=== PATIENT | male | born 1980 | race Caucasian/White ===

== ENCOUNTER 2017-08-24 04:37 | Inpatient (IN) | payer OTHER ==
[2017-08-24] VITALS (70 sets, daily range): BP systolic 107–174; BP diastolic 80–135; PULSE 57–90; RESP 12–25; TEMP 94.1; Ht 182.9 cm; Wt 125.0 kg
[~2017-08-24] VITALS: Ht 182.9 cm; Wt 125.0 kg
--- NOTE | 2017-08-24 04:45 | ERD ---
ER Documentation Chief Complaint Chief Complaint Cardiac arrest HPI The patient is a 36-year-old male, presenting to the ER because of acute cardiac arrest. The history was initially obtained from the parts cleaner, later confirmed with the girlfriend. According to the girlfriend, he has had a cold for the last 2 days, trouble sleeping for the last couple days. She found him having a seizure on the bed at approximately 3:50 AM. She called 911 at 4 AM. The EMS arrived at the scene at 4:06 AM. He was found to have PEA, intubated with Sb airway, treated with CPR and epinephrine 1 mg IV 3. He had ROSC at 4 :20 AM and arrived to the ER at 4:35 AM. He does not smoke nor drink, does not use illicit drug Past medical history: Thyroid disease Past surgical history: None ROS All systems reviewed and are negative except as per history of present illness. Medications Home Meds Reported Medications Pseudoephedrine Hcl (Sudafed 12 Hour) 120 Mg Tablet.sa, 120 MG PO 08/24/17 Allergies Allergies: Coded Allergies: No Known Allergy (Unverified , 08/24/17) Physical Exam Vitals Vital Signs Date Time Temp Pulse Resp B/P Pulse Ox O2 Delivery O2 Flow Rate FiO2 08/24/17 05:35 50 08/24/17 04:50 98.8 105 20 175/121 100 BIPAP Mechanical Ventilator 08/24/17 04:40 92 20 99 100 08/24/17 04:40 98.8 123 13 226/153 99 Physical Exam Const: Obtunded. He is appearing to have a seizure Head: Atraumatic. Eyes: Normal Conjunctiva.No nystagmus ENT: Normal External Ears, Nose and Mouth. Neck: Full range of motion. No meningismus. Resp: Clear to auscultation Anterior and lateral Cardio: Regular Tachycardic Abd: Soft, distended, normal bowel sounds, non tender. Skin: No petechiae or rashes. Back: No midline or flank tenderness. Ext: No cyanosis, or edema. Neur: Unable to perform due to his condition Psych: Unable to perform due to his condition Result Diagram: 08/24/17 0445 08/24/17 0445 Results 24 hrs Laboratory Tests Test 08/24/17 04:45 08/24/17 05:31 White Blood Count 11.710^3/ul Red Blood Count 7.3210^6/ul Hemoglobin 19.8g/dl Hematocrit 70.1% Mean Corpuscular Volume 95.8fl Mean Corpuscular Hemoglobin 27.0pg Mean Corpuscular Hemoglobin Concent 28.2g/dl Red Cell Distribution Width 20.8% Platelet Count 53175^3/UL Mean Platelet Volume 9.3fl Neutrophils % 61.1% Lymphocytes % 25.2% Monocytes % 7.8% Eosinophils % 0.8% Basophils % 1.0% Nucleated Red Blood Cells % 8.1/100WBC Neutrophils # 7.210^3/ul Lymphocytes # 3.010^3/ul Monocytes # 0.910^3/ul Eosinophils # 0.110^3/ul Basophils # 0.110^3/ul Nucleated Red Blood Cells # 1.010^3/ul Prothrombin Time 14.5Sec Prothrombin Time Ratio 1.1 INR International Normalized Ratio 1.13 Activated Partial Thromboplast Time 32.1Sec Sodium Level 141mmol/L Potassium Level 3.2mmol/L Chloride Level 92mmol/L Carbon Dioxide Level 28mmol/L Anion Gap 24 Blood Urea Nitrogen 11mg/dl Creatinine 1.15mg/dl Glucose Level 269mg/dl Lactic Acid Level 8.3mmol/L Calcium Level 7.9mg/dl Total Bilirubin 1.0mg/dl Direct Bilirubin 0.00mg/dl Indirect Bilirubin 1.0mg/dl Aspartate Amino Transf (AST/SGOT) 82IU/L Alanine Aminotransferase (ALT/SGPT) 82IU/L Alkaline Phosphatase 51IU/L Troponin I Pending Total Protein 7.0g/dl Albumin 4.0g/dl Globulin 3.00g/dl Albumin/Globulin Ratio 1.33 Thyroid Stimulating Hormone (TSH) Pending Salicylates Level < 1.0mg/dl Acetaminophen Level < 10.0ug/ml Ethyl Alcohol Level < 10.0mg/dl Blood Gas Specimen Source Blood arterial Arterial Blood Date Drawn 08/24/2017 5:30:03 AM Arterial Blood pH (Temp corrected) 7.327 Arterial Blood pCO2 (Temp correct) 55.9mmhg Arterial Blood pO2 (Temp corrected) 296.7mmHG Arterial Blood HCO3 28.6mmol/L Arterial Blood Base Excess 0.8mmol/L Arterial Blood Oxygen Saturation 99.5mmHG Kar Test N/A Arterial Blood Gas Puncture Site Right Brachial Arterial Blood Carboxyhemoglobin 0.3% Arterial Blood Methemoglobin 0.8% Blood Gas A-a O2 Differential 360.4mmHg Oxyhemoglobin Percent 98.4% Total Hemoglobin 20.5g/dl Blood Gas Temperature 37.0C Blood Gas Respiration Rate 20.0 Blood Gas Actual Respiration Rate 20 Blood Gas Modality VENT - AC FiO2 100.0% Blood Gas Tidal Volume 600.0mL Blood Gas Low PEEP Setting 5.0cmH2O Blood Gas Notified Whom MA Blood Gas Notified Time 08/24/2017 5:42:31 AM Current Medications Medications (Trade) Dose Ordered Sig/Candelaria Route PRN Reason Start Time Stop Time Status Last Admin Dose Admin Propofol (Diprivan) 100 ml @ 0 mls/hr TITRATE ONCE IV 08/24/17 05:00 08/24/17 05:01 DC 08/24/17 05:52 Lorazepam 2 mg 2 mg STK-MED ONCE .ROUTE 08/24/17 04:58 08/24/17 04:59 DC Levetiracetam (Keppra 500 Mg/ 100ml (Pmx)) 100 ml @ 400 mls/hr ONCE ONCE IVPB 08/24/17 05:30 08/24/17 05:44 DC 08/24/17 05:59 Lorazepam 2 mg 2 mg ONCE ONCE IV 08/24/17 05:30 08/24/17 05:31 DC 08/24/17 05:45 Vancomycin HCl 250 ml @ 125 mls/hr ONCE IVPB 08/24/17 06:00 08/24/17 07:59 Piperacillin Sod/ Tazobactam Sod 50 ml @ 0 mls/hr ONCE ONCE IV 08/24/17 06:00 08/24/17 06:01 DC Potassium Chloride 250 ml @ 62.5 mls/hr ONCE ONCE IVPB 08/24/17 06:00 08/24/17 09:59 UNV Sodium Chloride (NS) 4,030 ml @ 2,015 mls/hr BOLUS X1 ONCE IV 08/24/17 06:00 08/24/17 07:59 UNV Procedures/MDM EKG: Read by emergency physician Rate/Rhythm: Sinus tachycardia 109 beats/min QRS, ST, T-waves: No ST elevation, RAD, RVH, inferolateral ST depression Impression: Abnormal EKG [place] [id number] Radiology Main Line: [phone] DIAGNOSTIC IMAGING REPORT Patient: JABARI GUIDRY : 1980 Age: 36 Sex: M MR #: [id number] DOS: 08/24/175 Ordering MD: CORTEZ DELGADO MD Location: E/R Room/Bed: PROCEDURE: XR Chest. CLINICAL INDICATION: Possible Sepsis TECHNIQUE: Single portable view of the chest was obtained the COMPARISON: None FINDINGS: An endotracheal tube terminates 3.5 cm above the neville. Nasogastric tube extends below the level hemidiaphragm. The cardiomediastinal silhouette is enlarged. Diffuse bilateral perihilar and lower lobe parenchymal opacities are present representing pulmonary edema and pneumonia. No evidence of consolidation. IMPRESSION: 1. Diffuse bilateral perihilar lower lobe parenchymal opacities representing pulmonary edema and/or pneumonia. 2. Moderate cardiomegaly. 3. Endotracheal and nasogastric tubes in satisfactory position. RPTAT: HRSR Physician Ezra Date Time Electronically viewed and signed by Physician Ezra on 08/24/2017 05 :43 RR/ CC: CORTEZ DELGADO MD [place] [id number] Radiology Main Line: [phone] DIAGNOSTIC IMAGING REPORT Patient: JABARI GUIDRY : 1980 Age: 36 Sex: M MR #: [id number] DOS: 08/24/17444 Ordering MD: CORTEZ DELGADO MD Location: E/R Room/Bed: PROCEDURE: CT Brain without contrast. CLINICAL INDICATION: Sepsis. TECHNIQUE: A CT of the brain was performed on a [employer] 64-slice CT scanner utilizing axial imaging from the skull base through the vertex without IV contrast. Multiplanar reformatted images were made. Images were reviewed on a PACS workstation. The CTDIvol is 44.52 mGy and the DLP is 810.25 mGycm. One or more of the following dose reduction techniques were utilized: 1.) Automated exposure control 2.) Adjustment of the mA +/- kV according to patient's size 3.) Use of iterative reconstruction technique. COMPARISON: None FINDINGS: There is no intracranial hemorrhage, mass effect, or midline shift. No extra- axial fluid collection is seen. The ventricles and sulci are normal in size and configuration. The density of the brain is normal, and the alcala white matter differentiation appears well-preserved. Moderate opacification of the bilateral, left greater than right ethmoid sinuses. Minimal mucosal thickening of the bilateral maxillary sinuses. Opacified nasal cavity secondary to the presence of nasogastric tube. Endotracheal tube noted. IMPRESSION: 1. No acute intracranial pathology. 2. Extensive opacification of the nasal cavity likely secondary to the presence of a nasogastric tube. 3. Moderate opacification of the bilateral ethmoid sinus. Minimal mucosal thickening of the bilateral maximal sinuses. RPTAT: HRSR Physician Ezra Date Time Electronically viewed and signed by Physician Ezra on 08/24/2017 05 :27 RR/ CC: CORTEZ DELGADO MD [place] [id number] Radiology Main Line: [phone] DIAGNOSTIC IMAGING REPORT Patient: JABARI GUIDRY : 1980 Age: 36 Sex: M MR #: [id number] DOS: 08/24/17 0445 Ordering MD: CORTEZ DELGADO MD Location: E/R Room/Bed: PROCEDURE: CT Cervical Spine without contrast. CLINICAL INDICATION: Possible sepsis. TECHNIQUE: A CT of the cervical spine was performed on a [employer] 64- slice CT scanner utilizing thin section axial images from the skull base through the thoracic inlet. Sagittal and coronal reformatted images were made. The CTDIvol is 22.35 mGy and the DLP is 601.86 mGycm. One or more of the following dose reduction techniques were used: - Automated exposure control. - Adjustment of the mA and/or kV according to patient size. - Use of iterative reconstruction technique. COMPARISON: No prior studies are available for comparison. FINDINGS: There is straightening of the normal cervical lordosis with considerations including patient positioning, musculoskeletal spasm, degenerative change, and pain. No acute fracture or subluxation. Endotracheal nasogastric tube are present. C2-3: The disc is normal in height. No significant disk bulge or protrusion is evident. There is no central canal stenosis or foraminal narrowing. C3-4: Moderate disc space loss . Minimal 2.5 mm central and right central bulging disc. Left greater than right uncovertebral degenerative changes with mild left foraminal narrowing. C4-5: The vertebral disc spaces maintained. 2 mm diffusely bulging disc without herniation . The central canal and foramina are adequately patent. C5-6: Mild disc space loss . Minimal disc osteophyte ridging measuring approximately 3 mm. Mild bilateral uncovertebral degenerative changes. The central canal and foramina are adequately patent. C6-7: Mild to moderate disc space loss . Broad-based disc osteophyte ridging measuring approximately 2.5 mm. Mild central canal narrowing. Bilateral left greater than right uncovertebral degenerative changes. The foramina are adequately patent. C7-T1: Mild to moderate disc space loss. Disc osteophyte ridging slightly eccentric to the left of midline. Mild bilateral uncovertebral degenerative changes. IMPRESSION: 1. No acute fracture or subluxation. 2. Straightening of the normal cervical lordosis. 3. C6-C7: Mild central canal narrowing. 4. C3-C4: Mild left foraminal narrowing . RPTAT: HRSR Physician Ezra Date Time Electronically viewed and signed by Physician Ezra on 08/24/2017 05 :38 RR/ CC: CORTEZ DELGADO MD MEDICAL MAKING DECISION: The patient is a 36-year-old male, presenting with acute cardiopulmonary arrest, acute pneumonia, acute new onset seizure, acute septic shock, acute hypokalemia, acute hypoglycemia. He was immediately intubated, ADONIS Fagan. He was treated with Keppra 500 mg IV , Ativan 2 mg IV for seizure, She was treated for acute septic shock with vancomycin IV, Zosyn IV, normosaline 30 mL/kg IV. She was treated for acute hypokalemia with 40 mEq KCl IV Hypothermia protocol started Admit MDM: Patient's infectious symptoms have not stabilized and the patient is at risk of rapid decompensation. The patient will be admitted for careful hydration, antibiotic therapy, and infectious source control. Severe Sepsis criteria: Infectious source: pna End organ damage indicated by: Lactate > 2.0 mmol/L Acute Resp Failure (sat < 92% w/o oxygen) Sepsis Management: Time of recognition of severe sepsis/septic shock:6AM Within 3 hours of recognition: Blood cultures x 2 before broad-spectrum antibiotics: Yes 30 ml/kg NS bolus completed Initial lactate 8.3 Repeat lactate PENDING Septic Shock Assessment: Any lactic acid > 4.0 yes Persistent hypotension (SBP < 90 or 40 mmHg drop, MAP < 65) despite 30 mL/kg IV fluid bolusno Volume Re-assessment for Septic Shock (post 30 ml/kg bolus): Temp98, BP144/99, HR92, RR20 Pox95% Heart regular rate & rhythm Lungs no crackles Skin Warm & dry Cap Refill less than 2 seconds Peripheral pulses radially present Persistent Hypotension Treatment: Comfort care no Central line na Vasopressor: na I considered further perfusion assessment with CVP measurement, SCVO2, bedside ultrasound volume assessment, passive leg raise, trial of further fluid bolus. And proceeded withIVF Accepting Care Team Current data and ongoing care discussed. Time: 6:05 am Admitting Physician: Rhett Web Content Developer(s): Brendan Outstanding Data: Troponin, UDS Critical Care: Critical care time 35 minutes Emergent fluid management while maintaining close respiratory support. Provision of immediate and broad-spectrum antibiotic therapy. Simultaneous assessment for possible sources in order to direct targeted therapy. Consideration for invasive and chemical support to prevent cardiopulmonary collapse. Consultation: I discussed the patient with the on-call elementary school teacher Dr. Cardona at 5:45 am, she was made aware of the lab, the treatment, the patient condition. She did not think the patient required emergent cardiac angiogram Endotracheal Intubation by me: Pre assessment performed. See preceding note for details. Pre-oxygenation performed with 100% oxygen RSI: Performed w/o complication or hypoxic events. Medications as ordered. Blade: Vest Scope ET Tube: 7.5 cm Depth: 23 cm at the lip Intubation confirmed by colorimetric CO2, equal breath sounds, quiet over the stomach. Departure Diagnosis: Primary Impression: Cardiac arrest Additional Impressions: Pneumonia Septic shock Seizure Hypokalemia Hyperglycemia Condition: Critical Comments I discussed the findings with the patient. I discussed the patient with his physician Dr. Delaney who was made aware of the lab, the treatment, the patient condition. The patient is admitted to ICU at 6:05 am Disclaimer: Inadvertent spelling and grammatical errors are likely due to EHR/ dictation software use and do not reflect on the overall quality of patient care. Also, please note that the electronic time recorded on this note does not necessarily reflect the actual time of the patient encounter. CORTEZ DELGADO MD Aug 24, 2017 04:45
[2017-08-24] MEDS ORDERED: LORAZEPAM 2 MG INJ ONE (04:58)
[2017-08-24] MEDS ORDERED: PROPOFOL 100 ML IV ONE (05:00)
[2017-08-24 05:13] LABS: ABNORMAL IP MESSAGE 1; BASOPHIL # 0.1 10^3/ul (0.0-0.1); EOSINOPHILS # 0.1 10^3/ul (0.0-0.5); EOSINOPHILS % 0.8 % (0.0-7.0); HEMATOCRIT 70.1 % (42.0-52.0); HEMOGLOBIN 19.8 g/dl (14.0-18.0); LYMPHOCYTES % 25.2 % (15.0-51.0); MEAN CORPUSCULAR HGB CONC 28.2 g/dl (32.0-37.0); MEAN CORPUSCULAR VOLUME 95.8 fl (82.0-101.0); MEAN PLATELET VOLUME 9.3 fl (7.4-10.4); MONOCYTE # 0.9 10^3/ul (0.3-0.9); MONOCYTES % 7.8 % (0.0-11.0); NEUTROPHIL # 7.2 10^3/ul (1.6-7.5); NEUTROPHILS % 61.1 % (39.0-77.0); NUCLEATED RED BLOOD CELLS% 8.1 /100WBC (0.0-0.0); PLATELET COUNT 154 10^3/UL (140-415); POSITIVE DIFF @See below; RED BLOOD COUNT 7.32 10^6/ul (4.70-6.10); RED CELL DISTRIBUTION WIDTH 20.8 % (11.5-14.5); WHITE BLOOD COUNT 11.7 10^3/ul (4.8-10.8)
[2017-08-24 05:24] LABS: INR 1.13; PARTIAL THROMBOPLASTIN TIME 32.1 Sec (25.0-35.0); PROTIME 14.5 Sec (12.2-14.2); PT RATIO 1.1
--- NOTE | 2017-08-24 05:27 | RADRPT ---
PROCEDURE: CT Brain without contrast. CLINICAL INDICATION: Sepsis. TECHNIQUE: A CT of the brain was performed on a GE [employer] 64-slice CT scanner utilizing axial imaging from the skull base through the vertex without IV contrast. Multiplanar reformatted images were made. Images were reviewed on a PACS workstation. The CTDIvol is 44.52 mGy and the DLP is 810 .25 mGycm. One or more of the following dose reduction techniques were utilized: 1.) Automated exposure control 2.) Adjustment of the mA +/- kV according to patient's size 3.) Use of iterative reconstruction technique. COMPARISON: None FINDINGS: There is no intracranial hemorrhage, mass effect, or midline shift. No extra-axial fluid collection is seen. The ventricles and sulci are normal in size and configuration. The density of the brain is normal, and the alcala white matter differentiation appears well-preserved. Moderate opacification of the bilateral, left greater than right ethmoid sinuses. Minimal mucosal th ickening of the bilateral maxillary sinuses. Opacified nasal cavity secondary to the presence of avinash ogastric tube. Endotracheal tube noted. IMPRESSION: 1. No acute intracranial pathology. 2. Extensive opacification of the nasal cavity likely secondary to the presence of a nasogastric tu be. 3. Moderate opacification of the bilateral ethmoid sinus. Minimal mucosal thickening of the bilater al maximal sinuses. RPTAT: HRSR Physician Ezra Date Time Electronically viewed and signed by Physician Ezra on 08/24/2017 05:27 RR/
[2017-08-24] MEDS ORDERED: LEVETIRACETAM 500 MG (PMX) 100 ML IVPB ONE (05:30)
[2017-08-24] MEDS ORDERED: LORAZEPAM 2 MG INJ IV ONE (05:30)
--- NOTE | 2017-08-24 05:38 | RADRPT ---
PROCEDURE: CT Cervical Spine without contrast. CLINICAL INDICATION: Possible sepsis. TECHNIQUE: A CT of the cervical spine was performed on a GE [employer] V[employer] 64-slice CT scanner uti lizing thin section axial images from the skull base through the thoracic inlet. Sagittal and coron al reformatted images were made. The CTDIvol is 22.35 mGy and the DLP is 601.86 mGycm. One or more of the following dose reduction techniques were used: - Automated exposure control. - Adjustment of the mA and/or kV according to patient size. - Use of iterative reconstruction technique. COMPARISON: No prior studies are available for comparison. FINDINGS: There is straightening of the normal cervical lordosis with considerations including patient positio jose, musculoskeletal spasm, degenerative change, and pain. No acute fracture or subluxation. Endotracheal nasogastric tube are present. C2-3: The disc is normal in height. No significant disk bulge or protrusion is evident. There is no central canal stenosis or foraminal narrowing. C3-4: Moderate disc space loss . Minimal 2.5 mm central and right central bulging disc. Left greater than right uncovertebral degenerative changes with mild left foraminal narrowing. C4-5: The vertebral disc spaces maintained. 2 mm diffusely bulging disc without herniation . The jeri tral canal and foramina are adequately patent. C5-6: Mild disc space loss . Minimal disc osteophyte ridging measuring approximately 3 mm. Mild bila teral uncovertebral degenerative changes. The central canal and foramina are adequately patent. C6-7: Mild to moderate disc space loss . Broad-based disc osteophyte ridging measuring approximatel y 2.5 mm. Mild central canal narrowing. Bilateral left greater than right uncovertebral degenerative changes. The foramina are adequately patent. C7-T1: Mild to moderate disc space loss. Disc osteophyte ridging slightly eccentric to the left of m idline. Mild bilateral uncovertebral degenerative changes. IMPRESSION: 1. No acute fracture or subluxation. 2. Straightening of the normal cervical lordosis. 3. C6-C7: Mild central canal narrowing. 4. C3-C4: Mild left foraminal narrowing . RPTAT: HRSR Nhi Ya, Physician Date Time Electronically viewed and signed by Nhi Ya, Physician on 08/24/2017 05:38 RR/
[2017-08-24 05:43] LABS: AADO2 Arterial 360.4 mmHg (7.0-24.0); Arterial Base Excess 0.8 mmol/L (-3.0-3); Arterial COHb 0.3 % (0.0-3.0); Arterial Fraction of Oxyhgb 98.4 % (93.0-99.0); Arterial HCO3 28.6 mmol/L (22.0-26.0); Arterial MetHb 0.8 % (0.0-1.5); Arterial Total Hemglobin 20.5 g/dl (12.0-18.0); MODE VENT - AC
[2017-08-24 05:44] LABS: ALBUMIN/GLOBULIN RATIO 1.33; ANION GAP 24 (8-16)
--- NOTE | 2017-08-24 05:44 | RADRPT ---
PROCEDURE: XR Chest. CLINICAL INDICATION: Possible Sepsis TECHNIQUE: Single portable view of the chest was obtained the COMPARISON: None FINDINGS: An endotracheal tube terminates 3.5 cm above the neville. Nasogastric tube extends below the level he midiaphragm. The cardiomediastinal silhouette is enlarged. Diffuse bilateral perihilar and lower lobe parenchymal opacities are present representing pulmonary edema and pneumonia. No evidence of consolidation. IMPRESSION: 1. Diffuse bilateral perihilar lower lobe parenchymal opacities representing pulmonary edema and/o r pneumonia. 2. Moderate cardiomegaly. 3. Endotracheal and nasogastric tubes in satisfactory position. RPTAT: HRSR Physician Ezra Date Time Electronically viewed and signed by Physician Ezra on 08/24/2017 05:43 RR/
[2017-08-24 05:47] LABS: ACETAMINOPHEN < 10.0 ug/ml (10.0-30.0); ALANINE AMINOTRANSFERASE 82 IU/L (13-69); ALKALINE PHOSPHATASE 51 IU/L (42-121); ASPARTATE AMINO TRANSFERASE 82 IU/L (15-46); BLOOD UREA NITROGEN 11 mg/dl (7-20); CALCIUM 7.9 mg/dl (8.4-10.2); CARBON DIOXIDE 28 mmol/L (21-31); CHLORIDE 92 mmol/L (97-110); CREATININE 1.15 mg/dl (0.61-1.24); ETHANOL < 10.0 mg/dl; GLUCOSE 269 mg/dl (70-220); POTASSIUM 3.2 mmol/L (3.5-5.1); SALICYLATE < 1.0 mg/dl (5.0-30.0); SODIUM 141 mmol/L (135-144)
[2017-08-24] MEDS ORDERED: PSEU120T51 PO (05:55)
[2017-08-24] MEDS ORDERED: VANCOMYCIN 1 GM (PMX) 250 ML IVPB SCH (06:00)
[2017-08-24] MEDS ORDERED: POTASSIUM CHLORIDE 250 ML IVPB ONE (06:00)
[2017-08-24] MEDS ORDERED: PIPER-TAZO 3.375 GM IV (PMX) 50 ML IV ONE (06:00)
[2017-08-24] MEDS ORDERED: SOD CHLORIDE 0.9% IV ONE (06:00)
[2017-08-24 06:20] LABS: TROPONIN-I 0.065 ng/ml (0.00-0.12)
[2017-08-24] MEDS ORDERED: LIDOCAINE 1% (MPF) 5 ML VIAL SC ONE (06:30)
[2017-08-24] MEDS ORDERED: FENTAnyl 50 MCG/ML VIAL IV STA (06:36)
[2017-08-24] MEDS ORDERED: VECURONIUM 100 MG in DEXTROSE 5% 100 ML IV ONE (06:36)
[2017-08-24] MEDS ORDERED: PROPOFOL 100 ML IV STA (06:36)
[2017-08-24] MEDS ORDERED: SODIUM CHLORIDE 0.9% 500 ML BAG IV* STA ×2 (06:36→14:20)
[2017-08-24 06:45] LABS: ADD UMIC YES; UR ASCORBIC ACID NEGATIVE (NEGATIVE); UR BACTERIA FEW /HPF (NONE SEEN); UR BILIRUBIN (Dip) NEGATIVE (NEGATIVE); UR BLOOD (Dip) 2+ mg/dL (NEGATIVE); UR CLARITY CLOUDY (CLEAR); UR COLOR YELLOW (YELLOW); UR GLUCOSE (Dip) 1+ mg/dL (NEGATIVE); UR KETONES (Dip) NEGATIVE (NEGATIVE); UR LEUKOCYTE ESTERASE (Dip) NEGATIVE Leu/ul (NEGATIVE); UR MUCUS FEW /HPF (NONE SEEN); UR NITRITE (Dip) NEGATIVE (NEGATIVE); UR RBC > 182 /HPF (0-5); UR SPECIFIC GRAVITY (Dip) 1.016 (1.003-1.030); UR TOTAL PROTEIN (Dip) 3+ mg/dl (NEGATIVE); UR UROBILINOGEN (Dip) 2+ mg/dL (NEGATIVE)
[2017-08-24] MEDS ORDERED: ETOMIDATE 20 MG INJ ONE (07:00)
[2017-08-24] MEDS ORDERED: MIDAZOLAM 1 MG/ML 2 ML INJ IV ONE (07:00)
[2017-08-24] MEDS ORDERED: FENTAnyl 50 MCG/ML VIAL IV PRN (07:00)
[2017-08-24] MEDS ORDERED: VECURONIUM 10 MG VIAL IV ONE (07:00)
[2017-08-24] MEDS ORDERED: MIDAZOLAM 1 MG/ML 5 ML INJ IV ONE (07:00)
[2017-08-24] MEDS ORDERED: ROCURONIUM 50 MG INJ ONE (07:00)
[2017-08-24 07:11] LABS: BARBITURATES Negative (NEGATIVE); BENZODIAZEPINES Negative (NEGATIVE); CANNABINOIDS Negative (NEGATIVE); COCAINE Negative (NEGATIVE); OPIATES Negative (NEGATIVE)
[2017-08-24] MEDS ORDERED: NA PHOSPHATE/BIPHOS 133 ML ENEMA PR PRN (07:30)
[2017-08-24] MEDS ORDERED: ONDANSETRON 4 MG INJ IV PRN (07:30)
[2017-08-24] MEDS ORDERED: IPRATROPIUM (NEB) 0.5 MG/2.5 ML AMP NEB PRN ×2 (07:30→11:00)
[2017-08-24] MEDS ORDERED: NALOXONE (0.4 MG/ML) INJ IV PRN (07:30)
[2017-08-24] MEDS ORDERED: DOCUSATE SODIUM 100 MG CAP PO PRN (07:30)
[2017-08-24] MEDS ORDERED: ALBUTEROL/IPRATROPIUM (NEB) 3 ML AMP NEB PRN (07:30)
[2017-08-24] MEDS ORDERED: IBUPROFEN 600 MG TAB PO PRN (07:30)
[2017-08-24] MEDS ORDERED: BISACODYL (EC) 5 MG TAB PO PRN (07:30)
[2017-08-24] MEDS ORDERED: HYDROCODONE/APAP (5/325) TAB PO PRN (07:30)
[2017-08-24] MEDS ORDERED: FLUMAZENIL 0.5 MG INJ IV PRN (07:30)
[2017-08-24] MEDS ORDERED: BISACODYL 10 MG SUPP PR PRN (07:30)
[2017-08-24] MEDS ORDERED: NITROGLYCERIN (SL) 0.4 MG TAB SL PRN (07:30)
[2017-08-24] MEDS ORDERED: MAGNESIUM HYDROXIDE 30ML CUP PO PRN (07:30)
[2017-08-24] MEDS: ACETYLCYSTEINE 20% 4 ML VIAL NEB SCH ×3 (08:00→19:54)
[2017-08-24] MEDS ORDERED: SOD CHLORIDE 0.9% 100 ML ONE (08:03)
[2017-08-24] MEDS ORDERED: IOHEXOL 100 ML ONE (08:03)
[2017-08-24 08:07] LABS: AADO2 Arterial 605.3 mmHg (7.0-24.0); Allen Test ACCEPTAB; Arterial Base Excess 4.2 mmol/L (-3.0-3); Arterial COHb 2.2 % (0.0-3.0); Arterial Fraction of Oxyhgb 91.5 % (93.0-99.0); Arterial HCO3 28.3 mmol/L (22.0-26.0); Arterial MetHb 0.1 % (0.0-1.5); Arterial Total Hemglobin 20.4 g/dl (12.0-18.0); MODE VENT - AC
[2017-08-24] MEDS ORDERED: IOHEXOL 350MG/ML 50 ML BTL ONE (08:09)
[2017-08-24] MEDS: DEXTROSE 5%-0.45% NACL 1,000 ML IV SCH ×2 (08:30→21:35)
[2017-08-24 08:52] LABS: MAGNESIUM 1.6 mg/dl (1.7-2.5); PHOSPHORUS 2.7 mg/dl (2.5-4.9)
[2017-08-24 08:55] LABS: INR 1.09; PROTIME 14.1 Sec (12.2-14.2); PT RATIO 1.1
--- NOTE | 2017-08-24 08:55 | RADRPT ---
PROCEDURE: CTA Chest with contrast and with 3-D reconstructions CLINICAL INDICATION: sob, cardiac arrest TECHNIQUE: The study was performed utilizing multidetector CT scanner. Direct spiral axial section s were obtained from the thoracic inlet to the upper abdomen with the use of intravenous contrast ma terial (125 cc of Omnipaque 350). Sagittal, coronal and 3-D reformations were obtained. The images w ere reviewed on a PACS workstation. DLP 728.47 mGycm CTDIvol 7.04, 70.42, 19.95 mGy One or more of the following dose reduction techniques were used: - Automated exposure control. - Adjustment of the mA and/or kV according to patient size. - Use of iterative reconstruction technique. COMPARISON: No prior studies are available for comparison. FINDINGS: There are no pulmonary emboli. The tip of an endotracheal tube is noted above the neville. There is mild pulmonary vascular congesti on as well as subsegmental atelectasis and / or infiltrate involving the medial aspect of bilateral lower lobes. There is no pleural fluid. There is no pneumothorax. There is moderate cardiomegaly. There is no pericardial fluid. The aorta is within normal limits. There are no enlarged axillary or mediastinal lymph nodes. The tip of an enteric tube is noted in the stomach. The spleen is enlarged, measuring up to 15.4 cm in long dimension. Osseous and soft tissue structures are within normal limits. IMPRESSION: No CT evidence for pulmonary embolus. Moderate cardiomegaly with mild pulmonary vascular congestion. Subsegmental atelectasis involving the medial aspect of bilateral lower lobes. Underline infiltrates due to pneumonia or aspiration are not excluded. The tip of an endotracheal tube is noted above the neville. Enteric tube is noted in the stomach. RPTAT: EE Physician Jesse Date Time Electronically viewed and signed by Physician Jesse on 08/24/2017 08:55 /
[2017-08-24 08:56] LABS: PARTIAL THROMBOPLASTIN TIME 26.4 Sec (25.0-35.0)
[2017-08-24] MEDS ORDERED: ALBUTEROL/IPRATROPIUM (NEB) 3 ML AMP NEB SCH (09:00)
[2017-08-24] MEDS ORDERED: ALBUTEROL 0.083% (NEB) 2.5 MG/3 ML AMP NEB SCH (09:00)
[2017-08-24] MEDS: ARTIFICIAL TEARS 15 ML OPH BOTH EYES SCH ×4 (09:00→21:03)
[2017-08-24] MEDS: ALBUTEROL HFA 8 GM INHALER INH SCH ×2 (09:00→20:00)
[2017-08-24] MEDS: ENOXAPARIN 40 MG/0.4 ML SYG SC SCH (09:00)
[2017-08-24] MEDS: IPRATROPIUM (HFA) 12.9 GM INHALER INH SCH ×2 (09:00→20:01)
[2017-08-24] MEDS ORDERED: IPRATROPIUM (NEB) 0.5 MG/2.5 ML AMP NEB SCH (09:00)
[2017-08-24] MEDS ORDERED: PROPOFOL 20 ML ONE (09:04)
[2017-08-24] MEDS ORDERED: LABETALOL 100MG INJ ONE (09:18)
[2017-08-24] MEDS ORDERED: LABETALOL HCL 20MG INJ IV ONE ×3 (09:30→10:00)
[2017-08-24] MEDS ORDERED: ARTIFICIAL TEARS 15 ML OPH BOTH EYES STA (10:36)
[2017-08-24] MEDS ORDERED: ALBUTEROL 0.083% (NEB) 2.5 MG/3 ML AMP NEB PRN (11:00)
[2017-08-24] MEDS ORDERED: MEPERIDINE 25 MG INJ IV ONE (12:00)
[2017-08-24] MEDS: PIPER-TAZO 3.375 GM IV (PMX) 50 ML IV SCH ×2 (12:05→19:09)
--- NOTE | 2017-08-24 15:04 | HP ---
Date/Time of Note Date/Time of Note DATE: 08/24/17 TIME: 15:01 Assessment/Plan VTE Prophylaxis VTE Prophylaxis Intervention: LMWH Lines/Catheters IV Catheter Type (from Nrs): Peripheral IV Central line still needed: Yes Urinary Cath still in place: Yes Reason Cath still needed: urinary retention Assessment/Plan Chief Complaint/Hosp Course 1. s/p cardiac arrest 2. Sepsis 3. MOrbid obesity 4. Hypertension 5. history of flu like sickness before admission 6. Anemia Problems: Assessment/Plan 1. continue critical Care 2. Continue Vecuronium sedation and AC support 3. ID consult dr Victor 4. pulmonary consult dr Bermudez HPI/ROS Admit Date/Time Admit Date/Time Hx of Present Illness Per ER record pt was brougnt by paramedics. According to the girlfriend, he has had a cold for the last 2 days, trouble sleeping for the last couple days. She found him having a seizure on the bed at approximately 3:50 AM. She called 911 at 4 AM. The EMS arrived at the scene at 4:06 AM. He was found to have PEA , intubated with Sb airway, treated with CPR and epinephrine 1 mg IV 3. He had ROSC at 4:20 AM and arrived to the ER at 4:35 AM. ROS Subjective hx not possible: pt non-verbal, pt critical PMH/Family/Social Past Medical History Medical History: diabetes, hypertension Past Surgical History Past Surgical Hx: no surgical history Family History Significant Family History: no pertinent family hx Social History Alcohol Use: none Smoking Status: Never smoker Drug Use: none Exam/Review of Systems Vital Signs Vitals Vital Signs Date Time Temp Pulse Resp B/P Pulse Ox O2 Delivery O2 Flow Rate FiO2 08/24/17 14:30 92.6 58 20 166/130 98 08/24/17 14:00 Mechanical Ventilator 08/24/17 13:18 10.0 08/24/17 12:45 100 Exam Exam sedated with CHINEDU Neck: supple Respiratory: diminished breath sounds Cardiovascular: regular rate and rhythm Gastrointestinal: distended, soft Genitourinary - Male: nl penis Musculoskeletal: nl extremities to inspection Skin: nl turgor Labs Result Diagram: 08/24/175 08/24/17444 Medications Medications Current Medications Fentanyl 25 mcg 25 mcg Q10M PRN IV SEDATION; Start 08/24/17 at 07:00 Vecuronium [place] 100 mg/ Dextrose 100 ml @ 7.8 mls/hr [id number] ONCE IV Last administered on 08/24/17 07:33; Admin Dose 7.8 MLS/HR; Start 08/24/17 at 06:36 ; Stop 08/24/17 at 19:25 Dextrose/Sodium Chloride (D5-1/2ns) 1,000 ml @ 75 mls/hr [id number] IV Last administered on 08/24/17 08:30; Admin Dose 75 MLS/HR; Start 08/24/17 at 07:23 Flumazenil (Romazicon) 0.2 mg Q1M PRN IV BENZODIAZEPINE OVERDOSE; Start at 07:30 Naloxone HCl (Narcan) 0.4 mg Q3M PRN IV DECREASED REPIRATORY RATE; Start at 07:30 Ondansetron HCl (Zofran Inj) 4 mg Q6H PRN IV NAUSEA AND/OR VOMITING; Start 08/24/17 at 07:30 Nitroglycerin (Nitroglycerin (Sl Tab) 0.4 Mg) 1 tab Q5M PRN SL CHEST PAIN; Start 08/24/17 at 07:30 Acetaminophen (Tylenol Liquid) 650 mg Q6H PRN PO PAIN LEVEL 1-3 OR FEVER; Start 08/24/17 at 07:30 Acetaminophen (Tylenol Tab) 650 mg Q6H PRN PO PAIN LEVEL 1-3 OR FEVER; Start 08/24/17 at 07:30 Acetaminophen (Tylenol Supp) 650 mg Q4H PRN ID PAIN LEVEL 1-3 OR FEVER; Start 08/24/17 at 07:30 Ibuprofen (Motrin) 600 mg Q6H PRN PO PAIN LEVEL 1-3 OR FEVER; Start 08/24/17 at 07:30 Acetaminophen/ Hydrocodone Bitart ([place] (5/325)) 1 tab Q6H PRN PO PAIN LEVEL 4 -6; Start 08/24/17 at 07:30 Morphine Sulfate (morphine) 2 mg Q4H PRN IV PAIN LEVEL 7-10; Start 08/24/17 at 07:30 Lorazepam (Ativan) 1 mg Q2H PRN IV ANXIETY; Start 08/24/17 at 07:30 Docusate Sodium (Colace) 100 mg Q12H PRN PO CONSTIPATION; Start 08/24/17 at 07: 30 Magnesium Hydroxide (Milk Of Mag) 30 ml DAILY PRN PO CONSTIPATION; Start at 07:30 Bisacodyl (Dulcolax) 5 mg DAILY PRN PO CONSTIPATION; Start 08/24/17 at 07:30 Bisacodyl (Dulcolax Supp) 10 mg DAILY PRN ID CONSTIPATION; Start 08/24/17 at 07 :30 Sodium Biphosphate/ Sodium Phosphate (Fleet Enema) 133 ml DAILY PRN ID CONSTIPATION; Start 08/24/17 at 07:30 Eye Lubricant (Artificial Tears Oph) 1 drop TID BOTH EYES Last administered on 08/24/17 09:00; Admin Dose 1 DROP; Start 08/24/17 at 09:00 Enoxaparin Sodium 40 mg 40 mg DAILY SC Last administered on 08/24/17 09:00; Admin Dose 40 MG; Start 08/24/17 at 09:00 Piperacillin Sod/ Tazobactam Sod (Zosyn 3.375gm/ 50 ml (Pmx)) 50 ml @ 0 mls/hr Q6 IV Last administered on 08/24/17 12:05; Admin Dose 50 MLS/HR; Start at 12:00 Pantoprazole (Protonix Tab) 40 mg DAILY@06 PO ; Start 08/25/17 at 06:00 AMALIA LUKE Aug 24, 2017 15:04
[2017-08-24] MEDS ORDERED: hydrALAzine 20 MG INJ ONE (15:17)
[2017-08-24] MEDS ORDERED: MAGNESIUM SULFATE 2 GM/50 ML 50 ML IVPB ONE ×2 (17:30→21:30)
[2017-08-24] MEDS ORDERED: POTASSIUM CHLORIDE 30 MEQ in DEXTROSE 5% 250 ML IVPB ONE (18:00)
[2017-08-24] MEDS ORDERED: ACETAMINOPHEN 650 MG SUPP PR PRN (18:30)
[2017-08-24] MEDS ORDERED: DEXTROSE 50% 50 ML SYRINGE IV PRN ×2 (18:30)
[2017-08-24] MEDS ORDERED: MEPERIDINE 25 MG INJ IV PRN ×2 (18:30)
[2017-08-24] MEDS ORDERED: INSULIN HUMAN REGULAR 100 UNIT in SOD CHLORIDE 0.9% 99 ML IV SCH (18:30)
[2017-08-24 18:48] LABS: BASOPHIL # 0.1 10^3/ul (0.0-0.1); BASOPHILS % 0.8 % (0.0-2.0); EOSINOPHILS % 0.1 % (0.0-7.0); HEMATOCRIT 66.8 % (42.0-52.0); HEMOGLOBIN 20.5 g/dl (14.0-18.0); LYMPHOCYTES # 0.8 10^3/ul (0.8-2.9); LYMPHOCYTES % 7.1 % (15.0-51.0); MEAN CORPUSCULAR HEMOGLOBIN 27.4 pg (29.0-33.0); MEAN CORPUSCULAR HGB CONC 30.7 g/dl (32.0-37.0); MEAN CORPUSCULAR VOLUME 89.4 fl (82.0-101.0); MEAN PLATELET VOLUME 9.4 fl (7.4-10.4); MONOCYTE # 0.8 10^3/ul (0.3-0.9); MONOCYTES % 7.2 % (0.0-11.0); NEUTROPHIL # 8.9 10^3/ul (1.6-7.5); NUCLEATED RED BLOOD CELLS% 0.3 /100WBC (0.0-0.0); PLATELET COUNT 130 10^3/UL (140-415); RED BLOOD COUNT 7.47 10^6/ul (4.70-6.10); RED CELL DISTRIBUTION WIDTH 20.1 % (11.5-14.5); WHITE BLOOD COUNT 10.6 10^3/ul (4.8-10.8)
[2017-08-24] MEDS: PROPOFOL 100 ML IV SCH ×2 (19:15→22:22)
[2017-08-24] MEDS: ACCU-CHEK XX SCH ×6 (19:16→23:49)
[2017-08-24 19:32] LABS: ALBUMIN 3.1 g/dl (3.3-4.9); ALBUMIN/GLOBULIN RATIO 1.14; BILIRUBIN,INDIRECT 1.9 mg/dl (0-1.1); BILIRUBIN,TOTAL 1.9 mg/dl (0.2-1.3); CALCIUM 7.3 mg/dl (8.4-10.2); CREATININE 0.8 mg/dl (0.61-1.24); MAGNESIUM 1.7 mg/dl (1.7-2.5); PHOSPHORUS 2.3 mg/dl (2.5-4.9); POTASSIUM 3.6 mmol/L (3.5-5.1); TOTAL PROTEIN 5.8 g/dl (6.1-8.1)
[2017-08-24 19:58] LABS: AADO2 Arterial 635.3 mmHg (7.0-24.0); Allen Test ACCEPTAB; Arterial Base Excess 4.7 mmol/L (-3.0-3); Arterial COHb 0 % (0.0-3.0); Arterial Fraction of Oxyhgb 94.8 % (93.0-99.0); Arterial HCO3 27.1 mmol/L (22.0-26.0); Arterial MetHb 0.5 % (0.0-1.5); Arterial Total Hemglobin 22.2 g/dl (12.0-18.0); MODE VENT - AC
[2017-08-24] MEDS: OCULAR LUBRICANT 3.5 GM OPH OINT BOTH EYES SCH (21:03)
[2017-08-25] VITALS (102 sets, daily range): BP systolic 85–159; BP diastolic 39–122; PULSE 49–105; RESP 16–30
[2017-08-25] MEDS: ARTIFICIAL TEARS 15 ML OPH BOTH EYES SCH ×8 (00:17→23:48)
[2017-08-25] MEDS: OCULAR LUBRICANT 3.5 GM OPH OINT BOTH EYES SCH ×5 (00:17→23:48)
[2017-08-25 00:21] LABS: BASOPHIL # 0.1 10^3/ul (0.0-0.1); BASOPHILS % 0.8 % (0.0-2.0); EOSINOPHILS % 0.3 % (0.0-7.0); HEMATOCRIT 65.9 % (42.0-52.0); HEMOGLOBIN 20.4 g/dl (14.0-18.0); LYMPHOCYTES # 0.8 10^3/ul (0.8-2.9); LYMPHOCYTES % 7.6 % (15.0-51.0); MEAN CORPUSCULAR HEMOGLOBIN 27.5 pg (29.0-33.0); MEAN CORPUSCULAR VOLUME 88.8 fl (82.0-101.0); MONOCYTE # 0.7 10^3/ul (0.3-0.9); MONOCYTES % 6.8 % (0.0-11.0); NEUTROPHIL # 8.8 10^3/ul (1.6-7.5); NUCLEATED RED BLOOD CELLS% 0.4 /100WBC (0.0-0.0); PLATELET COUNT 131 10^3/UL (140-415); POSITIVE DIFF @See below; RED BLOOD COUNT 7.42 10^6/ul (4.70-6.10); RED CELL DISTRIBUTION WIDTH 20.2 % (11.5-14.5); WHITE BLOOD COUNT 10.5 10^3/ul (4.8-10.8)
[2017-08-25] MEDS: PIPER-TAZO 3.375 GM IV (PMX) 50 ML IV SCH ×5 (00:26→23:48)
[2017-08-25] MEDS: ACCU-CHEK XX SCH ×24 (00:26→23:45)
[2017-08-25] MEDS: PROPOFOL 100 ML IV SCH ×6 (00:45→22:29)
[2017-08-25 00:46] LABS: CALCIUM 7.7 mg/dl (8.4-10.2); CREATININE 0.8 mg/dl (0.61-1.24); MAGNESIUM 2.8 mg/dl (1.7-2.5); POTASSIUM 3.4 mmol/L (3.5-5.1)
[2017-08-25 00:49] LABS: INR 1.11; PROTIME 14.3 Sec (12.2-14.2); PT RATIO 1.1
[2017-08-25 00:50] LABS: PARTIAL THROMBOPLASTIN TIME 26.8 Sec (25.0-35.0)
[2017-08-25] MEDS: POTASSIUM CHLORIDE 50 ML IVPB PRN ×2 (00:52→04:14)
[2017-08-25 01:07] LABS: TROPONIN-I 0.309 ng/ml (0.00-0.12)
[2017-08-25] MEDS: ACETYLCYSTEINE 20% 4 ML VIAL NEB SCH ×4 (01:26→20:51)
[2017-08-25] MEDS: IPRATROPIUM (HFA) 12.9 GM INHALER INH SCH ×6 (01:27→20:52)
[2017-08-25] MEDS: ALBUTEROL HFA 8 GM INHALER INH SCH ×6 (01:27→20:52)
--- NOTE | 2017-08-25 02:20 | CONS ---
DATE OF ADMISSION: 08/24/2017 DATE OF CONSULTATION: 08/24/2017 TYPE OF CONSULTATION: Infectious Disease. REASON FOR CONSULTATION: Antibiotic management. HISTORY OF PRESENT ILLNESS: Casey Cabrera is a 36-year-old male who was brought in by paramedics. T he patient just had a cold for the last few days with trouble sleeping. His girlfriend found him almanza ving a seizure on the bed at 3:50 in the morning. She called 911. He was found to have a PEA, was intubated and treated with CPR and epinephrine 1 mg IV x3. He had ROSC at 4:20 a.m. and arrived in the emergency room at 4:35 a.m. His past problems include: 1. Adult-onset diabetes mellitus. 2. Hypertension. The patient had a central line placed and a urinary catheter. He is status post cardiac arrest. Hi s other problems include: 1. Morbid obesity. 2. Hypertension. 3. History of flu-like illness before admission. 4. Anemia. The patient was placed on vecuronium sedation and pulmonary infectious disease was called. His whit e count was 11.7, H and H of 19.8 and 70.1, platelet count 154,000. BUN and creatinine 11/1.15. Gl ucose random was 269. The patient was started on Zosyn 3.375 grams IV piggyback q.6. PAST MEDICAL HISTORY: Operations: None. FAMILY HISTORY: Noncontributory. SOCIAL HISTORY: He does not smoke, drink or abuse drugs. ALLERGIES: NONE TO PENICILLIN, SULFA OR FOODS. MEDICATIONS: Per chart. REVIEW OF SYSTEMS: As per HPI. PHYSICAL EXAMINATION: GENERAL: The patient is a morbidly obese male who is intubated, sedated, on a respirator. SKIN: Without generalized rash. HEENT: Has an ET tube. NECK: Supple. LYMPH NODES: Nonpalpable. CHEST: Decreased breath sounds at the bases. HEART: Without murmur or gallop. ABDOMEN: Soft, nontender, without organosplenomegaly or masses. EXTREMITIES: Without cyanosis, clubbing, or edema. RECTAL AND GENITAL: Deferred. Fagan catheter in place. NEUROLOGICAL: Nonfocal The patient is sedated. IMAGING STUDIES: His chest x-ray shows diffuse bilateral perihilar and lower lobe parenchymal opaci ties representing pulmonary edema and/or pneumonia. Moderate cardiomegaly. He has an endotracheal tube and an NG tube. A cervical spine CT shows no acute fractures. A CT scan of the brain shows no acute intracranial pathology, extensive opacification of the nasal c avity secondary to the presence of the NG tube, opacification of the bilateral ethmoid sinuses. CT and thoracic angiogram shows no evidence of pulmonary emboli, moderate cardiomegaly, mild pulmona ry vascular congestion. IMPRESSION AND PLAN: The patient probably aspirated secondary to his cardiac arrest. He is current ly on piperacillin/tazobactam and Zosyn and he is being maintained and sedated with propofol. I neda l continue him on current therapy. I will dictate my findings to the hospitalist. Blood cultures a nd urine cultures are pending as are stool cultures and MRSA screen. Dictated By: JORDAN CHILDS MD, JD/YESI Conf#: [id number] DID#: [id number]
[2017-08-25 02:45] LABS: AADO2 Arterial 614.2 mmHg (7.0-24.0); Allen Test ACCEPTAB; Arterial Base Excess 3.4 mmol/L (-3.0-3); Arterial COHb 0.1 % (0.0-3.0); Arterial Fraction of Oxyhgb 93.3 % (93.0-99.0); Arterial HCO3 25.2 mmol/L (22.0-26.0); Arterial MetHb 0.4 % (0.0-1.5); MODE VENT - AC
--- NOTE | 2017-08-25 04:11 | CONS ---
DATE OF ADMISSION: 08/24/2017 DATE OF CONSULTATION: PULMONARY CONSULTATION REASON FOR CONSULTATION: Cardiopulmonary arrest. Thank you, Dr. Delaney, for this consultation. HISTORY OF PRESENT ILLNESS: This is a 36-year-old gentleman brought in to the emergency room with c ardiopulmonary arrest, found him having a seizure by his , subsequently became unresponsive, fou nd to be in PEA. Upon arrival of EMS, the patient was placed on hypothermia protocol, currently in the cooling process. Few further details are available. PAST MEDICAL HISTORY: Per chart is morbid obesity, hypertension, hyperlipidemia and diabetes mellit us. MEDICATIONS: Per chart. ALLERGIES: NONE. SYSTEMS REVIEW: A 12-point review of systems currently unable to perform. PHYSICAL EXAMINATION: GENERAL: Moderately obese gentleman, intubated on mechanical ventilation, currently sedated and par alyzed. VITAL SIGNS: Temperature , pulse 59, blood pressure 154/100, O2 saturation 96% on FIO2 of 100% . NECK: Supple. No JVD or lymphadenopathy. CARDIAC: S1, S2, no added sounds or murmurs. CHEST: Diminished air entry bilaterally. ABDOMEN: Soft, obese, nontender, no guarding or rebound. EXTREMITIES: No cyanosis, clubbing, edema. NEUROLOGIC: Unable to assess. LABORATORIES: White count 11.7, hemoglobin 19.8, platelets of 154. Lactic acid initially 8.3, now 2.6, BUN 11, creatinine 1.15. TSH 18.8, AST, ALT 82. Arterial blood gas: pH 7.46, pCO2 of 40, pO2 of 67 on current vent settings. INR 1.09. Urinalysis negative for urinary tract infection. DIAGNOSTIC STUDIES: CT angiogram shows cardiomegaly, subsegmental atelectasis but no pulmonary embo lism. CT brain: Moderate opacification of ethmoid sinuses, otherwise no intracranial abnormality. CT spine shows C6 and C7 central canal narrowing. IMPRESSION AND PLAN: 1. Cardiopulmonary arrest. 2. Seizure with a patient with no prior seizure history per chart. 3. Possible aspiration pneumonia. 4. Possible anoxic brain injury. 5. Hypertension. 6. Morbid obesity. 7. Underlying diabetes mellitus. The patient will require: 1. Hypothermia protocol. 2. Insulin drip. 3. Continue mechanical ventilation. 4. Antibiotics for aspiration pneumonia. 5. Vent support. 6. DVT and GI prophylaxis. Dictated By: JULIANA WASHINGTON MD SV/NTS Conf#: [id number] DID#: [id number]
[2017-08-25] MEDS: LEVOTHYROXINE 25 MCG TAB NGT SCH (05:33)
--- NOTE | 2017-08-25 05:33 | CONS ---
DATE OF ADMISSION: 08/24/2017 DATE OF CONSULTATION: 08/24/2017 CARDIOLOGY CONSULTATION REASON FOR CONSULTATION: Cardiac arrest and abnormal electrocardiogram. REQUESTING PHYSICIAN: Cristino Luong MD HISTORY OF PRESENT ILLNESS: Mr. Cabrera is a 36-year-old male with history of obesity, hypertension, who had been suffering from symptoms consistent with a URI for approximately 2 days, per the patient 's girlfriend. Per chart biopsy, the patient was found by his girlfriend having a seizure in the rly morning hours, approximately 3:50 a.m. 911 was called. Upon arrival of EMS, the patient was fo und to be in PEA and required intubation. CPR was started. He was given epinephrine with return of spontaneous circulation. The patient was therefore brought to [facility]. Initi ally upon arrival, temperature of 98.8, blood pressure markedly elevated at 226/153, pulse 123, resp iratory rate 20, saturating 100%. Patient's labs revealed white count 11.7, hemoglobin 19.8, platel et count of 154. Sodium of 141, potassium 3.2, creatinine of 1.1, BUN 11, AST 82, ALT 82. Troponin negative. TSH 18.8. Lactic acid 2.5. INR 1.1. Tox screen negative. UA with hematuria. The pat ient underwent a chest x-ray revealing diffuse bilateral perihilar lower lobe parenchymal opacities representing pulmonary edema and/or pneumonia, moderate cardiomegaly; a cervical spine CT revealing no acute fracture or subluxation. A head CT revealed no acute intracranial pathology; extensive opa cification of the nasal cavity, likely secondary to presence of an NG tube; moderate opacification o f bilateral ethmoid sinus, and a CTA revealing no CT evidence of pulmonary embolus, moderate cardiom egaly, mild pulmonary vascular congestion with subsegmental atelectasis involving the medial aspect of bilateral lower lobes, underlying infiltrates due to pneumonia or aspiration are not excluded. T he patient's electrocardiogram revealed sinus tach at a rate of 128; right superior axis deviation w ith inferior, anterior and lateral ST depressions. The patient has subsequently been placed on hypo thermia protocol and been admitted to the ICU where he remains at this time. PAST MEDICAL HISTORY: As above in HPI. MEDICATIONS CURRENTLY IN HOSPITAL: 1. Protonix 40 mg daily. 2. Synthroid 25 mcg daily. 3. Potassium chloride. 4. Magnesium sulfate. 5. Zosyn IV q. 6. 6. DuoNeb. 7. Lovenox 40 mg subQ daily. 8. Mucomyst. 9. Flumazenil. 10. Narcan. 11. Tylenol. 12. Motrin. 13. Morphine. 14. Milk of magnesia. 15. Fentanyl. 16. Vecuronium. ALLERGIES: NO KNOWN DRUG ALLERGIES. SOCIAL HISTORY: Per chart biopsy, no tobacco, ETOH or illicit drug use. FAMILY HISTORY: No history of sudden cardiac or early CAD. REVIEW OF SYSTEMS: As above in HPI. CONSTITUTIONAL: No fevers, chills. PULMONARY: Respiratory failure, status post intubation. GASTROINTESTINAL: No vomiting. GENITOURINARY: No hematuria. MUSCULOSKELETAL: No history of degenerative joint disease. PSYCHIATRIC: No history of psych disorder. ENDOCRINE: No documented diabetes mellitus. PHYSICAL EXAMINATION: VITAL SIGNS: Temperature of 98.8, blood pressure of 152/114, pulse 59, saturating 100% on 2 liters. GENERAL: The patient is intubated and sedated. NECK: JVP of 9 cm of water. CHEST: Upper airway transmitted rhonchorous sounds. HEART: , normal rhythm. Normal S1, increased S2, I/ systolic murmur, nondisplaced PMI. ABDOMEN: Positive bowel sounds, soft. EXTREMITIES: No pitting edema; 1+ pulses bilaterally, posterior tibial. LABORATORY DATA: As above in HPI. No further labs for my review at this time. IMAGING STUDIES: As above in HPI. No further imaging studies for my review at this time. ELECTROCARDIOGRAM: As above in HPI. No further electrocardiograms for my review at this time. IMPRESSION: 1. Pulseless electrical activity cardiac arrest. 2. Abnormal electrocardiogram with diffuse ST depressions but in the setting of cardiac arrest. 3. Hypertension, currently uncontrolled. 4. Tachycardia consistent with sinus tachycardia. 5. Encephalopathy. 6. History of flu-like illness. 7. Hypothyroidism. 8. Hematuria. 9. Seizure prior to insulation blower arrival 10. Lactic acidosis. 11. Leukocytosis. RECOMMENDATIONS: 1. At this time, would maintain the patient on telemetry monitoring to follow rhythm and rate contr ol closely. 2. Would check a 2D echocardiogram to further assess patient's ejection fraction, wall motion, rule out any major valve abnormalities. 3. Complete a rule out for myocardial infarction to ensure the patient's cardiac arrest was not due to or has not resulted in an acute coronary syndrome given significant ST depressions such as in ac gerson myocardial infarction. 4. Continue the patient's hypothermia protocol. 5. Would treat this patient's hypertension with IV push hydralazine as necessary to improve overall systolic blood pressure control. 6. Would check a fasting lipid panel for general risk stratification. 7. Follow the patient's mental status closely and will follow up all culture data at this time. Thank you for allowing me to take part in the care of this patient. I will continue to follow along very closely with you. Further recommendations will be made as the patient progresses through his inpatient hospital clinical course. Dictated By: SKYLAR JON/YESI Conf#: [id number] DID#: [id number] CC: CRISTINO LUONG MD;*End*
[2017-08-25] MEDS: PANTOPRAZOLE (EC) 40 MG TAB PO SCH (05:34)
[2017-08-25] MEDS ORDERED: PANTOPRAZOLE 40 MG INJ IV SCH (06:00)
[2017-08-25 06:10] LABS: BASOPHIL # 0.1 10^3/ul (0.0-0.1); BASOPHILS % 0.5 % (0.0-2.0); EOSINOPHILS % 0.3 % (0.0-7.0); HEMATOCRIT 65.1 % (42.0-52.0); HEMOGLOBIN 19.8 g/dl (14.0-18.0); MEAN CORPUSCULAR HGB CONC 30.4 g/dl (32.0-37.0); MEAN CORPUSCULAR VOLUME 88.8 fl (82.0-101.0); MEAN PLATELET VOLUME 10.6 fl (7.4-10.4); MONOCYTE # 0.4 10^3/ul (0.3-0.9); MONOCYTES % 4.6 % (0.0-11.0); NEUTROPHIL # 8.1 10^3/ul (1.6-7.5); NEUTROPHILS % 84.2 % (39.0-77.0); NUCLEATED RED BLOOD CELLS% 0.4 /100WBC (0.0-0.0); PLATELET COUNT 121 10^3/UL (140-415); POSITIVE DIFF @See below; RED BLOOD COUNT 7.33 10^6/ul (4.70-6.10); RED CELL DISTRIBUTION WIDTH 21.1 % (11.5-14.5); WHITE BLOOD COUNT 9.7 10^3/ul (4.8-10.8)
[2017-08-25 06:24] LABS: AADO2 Arterial 647.7 mmHg (7.0-24.0); Allen Test ACCEPTAB; Arterial Base Excess 3.8 mmol/L (-3.0-3); Arterial COHb 0.3 % (0.0-3.0); Arterial Fraction of Oxyhgb 91.5 % (93.0-99.0); Arterial HCO3 26.2 mmol/L (22.0-26.0); Arterial MetHb 0.4 % (0.0-1.5); Arterial Total Hemglobin 21.8 g/dl (12.0-18.0); MODE VENT - AC
[2017-08-25 06:29] LABS: INR 1.11; PARTIAL THROMBOPLASTIN TIME 28.7 Sec (25.0-35.0); PROTIME 14.3 Sec (12.2-14.2); PT RATIO 1.1
[2017-08-25 06:44] LABS: CHOL/HDL RATIO 5.6 RATIO
[2017-08-25 06:53] LABS: ALBUMIN 2.6 g/dl (3.3-4.9); BILIRUBIN,INDIRECT 1.6 mg/dl (0-1.1); BILIRUBIN,TOTAL 1.6 mg/dl (0.2-1.3); CALCIUM 7.5 mg/dl (8.4-10.2); CREATININE 0.74 mg/dl (0.61-1.24); POTASSIUM 4.2 mmol/L (3.5-5.1); TOTAL PROTEIN 5.2 g/dl (6.1-8.1)
[2017-08-25 07:48] LABS: MAGNESIUM 2.2 mg/dl (1.7-2.5); PHOSPHORUS 3.1 mg/dl (2.5-4.9)
[2017-08-25 08:00] LABS: TROPONIN-I 0.21 ng/ml (0.00-0.12)
--- NOTE | 2017-08-25 08:39 | RADRPT ---
PROCEDURE: XR Chest. CLINICAL INDICATION: Pneumonia, congestive heart failure TECHNIQUE: Single frontal view of the chest was obtained COMPARISON: 08/24/2017 FINDINGS: Stable endotracheal tube and nasogastric tube. Stable low lung volumes and small bilateral pleural effusions. Improving interstitial pulmonary edema, which is now mild to moderate. Stable large cardiomediastinal silhouette. No acute osseous abnormality. IMPRESSION: Improving interstitial pulmonary edema, which is now mild to moderate. Superimposed infection to be determined clinically. Otherwise, no convincing interval change compared to chest radiograph from pr ior day. RPTAT: EE Physician Kenrick Date Time Electronically viewed and signed by Physician Kenrick on 08/25/2017 08:39 /
[2017-08-25] MEDS: LORAZEPAM 2 MG INJ IV PRN ×3 (09:11→20:05)
[2017-08-25] MEDS: ENOXAPARIN 40 MG/0.4 ML SYG SC SCH (09:20)
[2017-08-25] MEDS ORDERED: VECURONIUM 100 MG in DEXTROSE 5% 100 ML IV SCH (10:00)
[2017-08-25] MEDS: LEVETIRACETAM 500 MG (PMX) 100 ML IVPB SCH ×2 (10:31→21:05)
[2017-08-25] MEDS: DEXTROSE 5%-0.45% NACL 1,000 ML IV SCH ×2 (10:36→23:17)
[2017-08-25 12:29] LABS: Allen Test ACCEPTAB; Arterial Base Excess 4.5 mmol/L (-3.0-3); Arterial COHb 0.3 % (0.0-3.0); Arterial Fraction of Oxyhgb 92.1 % (93.0-99.0); Arterial HCO3 27.7 mmol/L (22.0-26.0); Arterial MetHb 0.5 % (0.0-1.5); Arterial Total Hemglobin 22.6 g/dl (12.0-18.0); MODE VENT - AC
[2017-08-25 12:36] LABS: BASOPHILS % 0.4 % (0.0-2.0); EOSINOPHILS # 0.1 10^3/ul (0.0-0.5); EOSINOPHILS % 0.6 % (0.0-7.0); HEMATOCRIT 66.5 % (42.0-52.0); HEMOGLOBIN 20.5 g/dl (14.0-18.0); LYMPHOCYTES # 0.8 10^3/ul (0.8-2.9); LYMPHOCYTES % 8.6 % (15.0-51.0); MEAN CORPUSCULAR HEMOGLOBIN 27.4 pg (29.0-33.0); MEAN CORPUSCULAR HGB CONC 30.8 g/dl (32.0-37.0); MEAN PLATELET VOLUME 9.2 fl (7.4-10.4); MONOCYTE # 0.5 10^3/ul (0.3-0.9); MONOCYTES % 5.5 % (0.0-11.0); NEUTROPHIL # 7.9 10^3/ul (1.6-7.5); NEUTROPHILS % 84.4 % (39.0-77.0); NUCLEATED RED BLOOD CELLS% 0.4 /100WBC (0.0-0.0); PLATELET COUNT 128 10^3/UL (140-415); RED BLOOD COUNT 7.47 10^6/ul (4.70-6.10); RED CELL DISTRIBUTION WIDTH 20.6 % (11.5-14.5); WHITE BLOOD COUNT 9.3 10^3/ul (4.8-10.8)
[2017-08-25 13:00] LABS: INR 1.11; PROTIME 14.3 Sec (12.2-14.2); PT RATIO 1.1
[2017-08-25 13:01] LABS: PARTIAL THROMBOPLASTIN TIME 33.2 Sec (25.0-35.0)
--- NOTE | 2017-08-25 13:11 | CONS ---
Date/Time of Note Date/Time of Note DATE: 08/25/17 TIME: 13:06 Consult Date/Type/Reason Admit Date/Time Aug 24, 2017 at 07:05 Initial Consult Date Type of Consultation: Pulm/CCM Subjective On hypothermia protocol. Objective Vital Signs Date Time Temp Pulse Resp B/P Pulse Ox O2 Delivery O2 Flow Rate FiO2 08/25/17 11:30 93.4 64 20 126/96 93 08/25/17 08:00 100 08/24/17 16:00 Mechanical Ventilator 10.0 Intake and Output 08/24/17 08/24/17 08/25/17 15:00 23:00 07:00 Intake Total 4000 ml 793.433 ml 1056.0 ml Output Total 5500 ml 1707 ml 693 ml Balance -1500 ml -913.567 ml 363.0 ml Exam CARDIAC: S1, S2, no added sounds or murmurs. CHEST: Diminished air entry bilaterally. ABDOMEN: Soft, obese, nontender, no guarding or rebound. EXTREMITIES: No cyanosis, clubbing, edema. NEUROLOGIC: Unable to assess. Results/Medications Result Diagram: 08/25/17 1211 08/25/17 0455 Results 24 hrs Laboratory Tests Test 08/24/17 18:17 08/24/17 18:30 08/24/17 18:36 08/24/17 19:43 Blood Gas Specimen Source Blood arterial Arterial Blood Date Drawn 08/24/2017 7:40:38 PM Arterial Blood pH (Temp corrected) 7.568 *H Arterial Blood pCO2 (Temp correct) 29.6 L Arterial Blood pO2 (Temp corrected) 56.3 L Arterial Blood HCO3 27.1 H Arterial Blood Base Excess 4.7 H Arterial Blood Oxygen Saturation 95.3 Kar Test ACCEPTAB Arterial Blood Gas Puncture Site Left Radial Arterial Blood Carboxyhemoglobin 0 Arterial Blood Methemoglobin 0.5 Blood Gas A-a O2 Differential 635.3 H Oxyhemoglobin Percent 94.8 Total Hemoglobin 22.2 H Blood Gas Temperature 33.6 Blood Gas Respiration Rate 20.0 Blood Gas Actual Respiration Rate 20 Blood Gas Modality VENT - AC FiO2 100.0 Blood Gas Tidal Volume 600.0 Blood Gas Low PEEP Setting 5.0 Blood Gas Critical Value Read Back MLIBATIQUE RN Blood Gas Notified Whom MA Blood Gas Notified Time 08/24/2017 7:57:23 PM Bedside Glucose 129 160 White Blood Count 10.6 Red Blood Count 7.47 H Hemoglobin 20.5 H Hematocrit 66.8 H Mean Corpuscular Volume 89.4 Mean Corpuscular Hemoglobin 27.4 L Mean Corpuscular Hemoglobin Concent 30.7 L Red Cell Distribution Width 20.1 H Platelet Count 130 L Mean Platelet Volume 9.4 Neutrophils % 84.0 H Lymphocytes % 7.1 L Monocytes % 7.2 Eosinophils % 0.1 Basophils % 0.8 Nucleated Red Blood Cells % 0.3 H Neutrophils # 8.9 H Lymphocytes # 0.8 Monocytes # 0.8 Eosinophils # 0.0 Basophils # 0.1 Nucleated Red Blood Cells # 0.0 Sodium Level 139 Potassium Level 3.6 Chloride Level 100 Carbon Dioxide Level 30 Anion Gap 13 # Blood Urea Nitrogen 11 Creatinine 0.80 Glucose Level 167 # Calcium Level 7.3 L Phosphorus Level 2.3 L Magnesium Level 1.7 Total Bilirubin 1.9 H Direct Bilirubin 0.00 Indirect Bilirubin 1.9 H Aspartate Amino Transf (AST/SGOT) 101 H Alanine Aminotransferase (ALT/SGPT) 103 H Alkaline Phosphatase 41 L Troponin I 0.541 *H Total Protein 5.8 #L Albumin 3.1 L Globulin 2.70 Albumin/Globulin Ratio 1.14 Test 08/24/17 20:51 08/24/17 21:39 08/24/17 22:36 08/24/17 23:47 Bedside Glucose 141 131 130 122 Test 08/25/17 00:01 08/25/17 00:17 08/25/17 00:25 08/25/17 01:29 White Blood Count 10.5 Red Blood Count 7.42 H Hemoglobin 20.4 H Hematocrit 65.9 H Mean Corpuscular Volume 88.8 Mean Corpuscular Hemoglobin 27.5 L Mean Corpuscular Hemoglobin Concent 31.0 L Red Cell Distribution Width 20.2 H Platelet Count 131 L Mean Platelet Volume 9.0 Neutrophils % 84.0 H Lymphocytes % 7.6 L Monocytes % 6.8 Eosinophils % 0.3 Basophils % 0.8 Nucleated Red Blood Cells % 0.4 H Neutrophils # 8.8 H Lymphocytes # 0.8 Monocytes # 0.7 Eosinophils # 0.0 Basophils # 0.1 Nucleated Red Blood Cells # 0.0 Prothrombin Time 14.3 H Prothrombin Time Ratio 1.1 INR International Normalized Ratio 1.11 Activated Partial Thromboplast Time 26.8 Fibrinogen 442.0 Sodium Level 140 Potassium Level 3.4 L Chloride Level 100 Carbon Dioxide Level 33 H Anion Gap 10 Blood Urea Nitrogen 11 Creatinine 0.80 Glucose Level 135 Calcium Level 7.7 L Phosphorus Level 3.0 Magnesium Level 2.8 #H Troponin I 0.309 *H Amylase Level 90 Lipase 49 Blood Gas Specimen Source Blood arterial Arterial Blood Date Drawn 08/25/2017 12:10:09 AM Arterial Blood pH (Temp corrected) 7.516 H Arterial Blood pCO2 (Temp correct) 31.9 L Arterial Blood pO2 (Temp corrected) 66.9 L Arterial Blood HCO3 25.2 Arterial Blood Base Excess 3.4 H Arterial Blood Oxygen Saturation 93.8 L Kar Test ACCEPTAB Arterial Blood Gas Puncture Site Right Radial Arterial Blood Carboxyhemoglobin 0.1 Arterial Blood Methemoglobin 0.4 Blood Gas A-a O2 Differential 614.2 H Oxyhemoglobin Percent 93.3 Total Hemoglobin 22.0 H Blood Gas Temperature 37.0 Blood Gas Respiration Rate 20.0 Blood Gas Actual Respiration Rate 20 Blood Gas Modality VENT - AC FiO2 100.0 Blood Gas Tidal Volume 600.0 Blood Gas Low PEEP Setting 5.0 Blood Gas Inspiratory Pressure 39.0 Blood Gas Notified Whom BR Blood Gas Notified Time 08/25/2017 12:16:01 AM Bedside Glucose 119 116 Test 08/25/17 02:41 08/25/17 03:34 08/25/17 04:36 08/25/17 04:55 Bedside Glucose 113 125 128 White Blood Count 9.7 Red Blood Count 7.33 H Hemoglobin 19.8 H Hematocrit 65.1 H Mean Corpuscular Volume 88.8 Mean Corpuscular Hemoglobin 27.0 L Mean Corpuscular Hemoglobin Concent 30.4 L Red Cell Distribution Width 21.1 H Platelet Count 121 L Mean Platelet Volume 10.6 H Neutrophils % 84.2 H Lymphocytes % 10.0 L Monocytes % 4.6 Eosinophils % 0.3 Basophils % 0.5 Nucleated Red Blood Cells % 0.4 H Neutrophils # 8.1 H Lymphocytes # 1.0 Monocytes # 0.4 Eosinophils # 0.0 Basophils # 0.1 Nucleated Red Blood Cells # 0.0 Prothrombin Time 14.3 H Prothrombin Time Ratio 1.1 INR International Normalized Ratio 1.11 Activated Partial Thromboplast Time 28.7 Fibrinogen 457.0 Sodium Level 139 Potassium Level 4.2 Chloride Level 100 Carbon Dioxide Level 34 H Anion Gap 9 Blood Urea Nitrogen 11 Creatinine 0.74 Glucose Level 138 Calcium Level 7.5 L Phosphorus Level 3.1 Magnesium Level 2.2 Total Bilirubin 1.6 H Direct Bilirubin 0.00 Indirect Bilirubin 1.6 H Aspartate Amino Transf (AST/SGOT) 101 H Alanine Aminotransferase (ALT/SGPT) 97 H Alkaline Phosphatase 40 L Troponin I 0.210 *H Total Protein 5.2 L Albumin 2.6 L Globulin 2.60 Albumin/Globulin Ratio 1.00 Triglycerides Level 334 H Cholesterol Level 118 LDL Cholesterol, Calculated 30 HDL Cholesterol 21 L Cholesterol/HDL Ratio 5.6 Amylase Level 85 Lipase 53 Test 08/25/17 05:31 08/25/17 05:50 08/25/17 06:00 08/25/17 06:30 Bedside Glucose 121 116 Lactic Acid Level 3.7 *H Blood Gas Specimen Source Blood arterial Arterial Blood Date Drawn 08/25/2017 6:00:43 AM Arterial Blood pH (Temp corrected) 7.569 *H Arterial Blood pCO2 (Temp correct) 28.4 L Arterial Blood pO2 (Temp corrected) 46.7 *L Arterial Blood HCO3 26.2 H Arterial Blood Base Excess 3.8 H Arterial Blood Oxygen Saturation 92.1 L Kar Test ACCEPTAB Arterial Blood Gas Puncture Site Right Radial Arterial Blood Carboxyhemoglobin 0.3 Arterial Blood Methemoglobin 0.4 Blood Gas A-a O2 Differential 647.7 H Oxyhemoglobin Percent 91.5 L Total Hemoglobin 21.8 H Blood Gas Temperature 32.8 Blood Gas Respiration Rate 20.0 Blood Gas Actual Respiration Rate 20 Blood Gas Modality VENT - AC FiO2 100.0 Blood Gas Tidal Volume 600.0 Blood Gas Low PEEP Setting 5.0 Blood Gas Critical Value Read Back MLIBATIQUE RN Blood Gas Notified Whom MA Blood Gas Notified Time 08/25/2017 6:23:44 AM Test 08/25/17 07:45 08/25/17 08:37 08/25/17 09:29 08/25/17 10:39 Bedside Glucose 144 92 116 122 Test 08/25/17 11:36 08/25/17 12:00 08/25/17 12:11 08/25/17 12:28 Bedside Glucose 117 126 Blood Gas Specimen Source Blood arterial Arterial Blood Date Drawn 08/25/2017 12:20:29 PM Arterial Blood pH (Temp corrected) 7.540 H Arterial Blood pCO2 (Temp correct) 32.3 L Arterial Blood pO2 (Temp corrected) 52.9 *L Arterial Blood HCO3 27.7 H Arterial Blood Base Excess 4.5 H Arterial Blood Oxygen Saturation 92.8 L Kar Test ACCEPTAB Arterial Blood Gas Puncture Site Right Radial Arterial Blood Carboxyhemoglobin 0.3 Arterial Blood Methemoglobin 0.5 Blood Gas A-a O2 Differential 635.0 H Oxyhemoglobin Percent 92.1 L Total Hemoglobin 22.6 H Blood Gas Temperature 34.0 Blood Gas Respiration Rate 20.0 Blood Gas Actual Respiration Rate 20 Blood Gas Modality VENT - AC FiO2 100.0 Blood Gas Tidal Volume 600.0 Blood Gas Low PEEP Setting 5.0 Blood Gas Critical Value Read Back BROOKS PRAJAPATI R.N. Blood Gas Notified Whom RT Blood Gas Notified Time 08/25/2017 12:29:11 PM White Blood Count 9.3 Red Blood Count 7.47 H Hemoglobin 20.5 H Hematocrit 66.5 H Mean Corpuscular Volume 89.0 Mean Corpuscular Hemoglobin 27.4 L Mean Corpuscular Hemoglobin Concent 30.8 L Red Cell Distribution Width 20.6 H Platelet Count 128 L Mean Platelet Volume 9.2 Neutrophils % 84.4 H Lymphocytes % 8.6 L Monocytes % 5.5 Eosinophils % 0.6 Basophils % 0.4 Nucleated Red Blood Cells % 0.4 H Neutrophils # 7.9 H Lymphocytes # 0.8 Monocytes # 0.5 Eosinophils # 0.1 Basophils # 0.0 Nucleated Red Blood Cells # 0.0 Prothrombin Time 14.3 H Prothrombin Time Ratio 1.1 INR International Normalized Ratio 1.11 Activated Partial Thromboplast Time 33.2 Fibrinogen Pending Medications Current Medications Fentanyl 25 mcg 25 mcg Q10M PRN IV SEDATION; Start 08/24/17 at 07:00 Dextrose/Sodium Chloride (D5-1/2ns) 1,000 ml @ 75 mls/hr [id number] IV Last administered on 08/25/17t 10:36; Admin Dose 75 MLS/HR; Start 08/24/17 at 07:23 Flumazenil (Romazicon) 0.2 mg Q1M PRN IV BENZODIAZEPINE OVERDOSE; Start at 07:30 Naloxone HCl (Narcan) 0.4 mg Q3M PRN IV DECREASED REPIRATORY RATE; Start at 07:30 Ondansetron HCl (Zofran Inj) 4 mg Q6H PRN IV NAUSEA AND/OR VOMITING; Start 08/24/17 at 07:30 Nitroglycerin (Nitroglycerin (Sl Tab) 0.4 Mg) 1 tab Q5M PRN SL CHEST PAIN; Start 08/24/17 at 07:30 Acetaminophen (Tylenol Liquid) 650 mg Q6H PRN PO PAIN LEVEL 1-3 OR FEVER; Start 08/24/17 at 07:30 Acetaminophen (Tylenol Tab) 650 mg Q6H PRN PO PAIN LEVEL 1-3 OR FEVER; Start 08/24/17 at 07:30 Acetaminophen (Tylenol Supp) 650 mg Q4H PRN [place] PAIN LEVEL 1-3 OR FEVER; Start 08/24/17 at 07:30 Ibuprofen (Motrin) 600 mg Q6H PRN PO PAIN LEVEL 1-3 OR FEVER; Start 08/24/17 at 07:30 Acetaminophen/ Hydrocodone Bitart ([place] (5/325)) 1 tab Q6H PRN PO PAIN LEVEL 4 -6; Start 08/24/17 at 07:30 Morphine Sulfate (morphine) 2 mg Q4H PRN IV PAIN LEVEL 7-10; Start 08/24/17 at 07:30 Lorazepam (Ativan) 1 mg Q2H PRN IV ANXIETY Last administered on 08/25/17 09:11 ; Admin Dose 1 MG; Start 08/24/17 at 07:30 Docusate Sodium (Colace) 100 mg Q12H PRN PO CONSTIPATION; Start 08/24/17 at 07: 30 Magnesium Hydroxide (Milk Of Mag) 30 ml DAILY PRN PO CONSTIPATION; Start at 07:30 Bisacodyl (Dulcolax) 5 mg DAILY PRN PO CONSTIPATION; Start 08/24/17 at 07:30 Bisacodyl (Dulcolax Supp) 10 mg DAILY PRN [place] CONSTIPATION; Start 08/24/17 at 07 :30 Sodium Biphosphate/ Sodium Phosphate (Fleet Enema) 133 ml DAILY PRN DE CONSTIPATION; Start 08/24/17 at 07:30 Eye Lubricant (Artificial Tears Oph) 1 drop TID BOTH EYES Last administered on 08/25/17 12:44; Admin Dose 1 DROP; Start 08/24/17 at 09:00 Enoxaparin Sodium 40 mg 40 mg DAILY SC Last administered on 08/25/17 09:20; Admin Dose 40 MG; Start 08/24/17 at 09:00 Piperacillin Sod/ Tazobactam Sod (Zosyn 3.375gm/ 50 ml (Pmx)) 50 ml @ 0 mls/hr Q6 IV Last administered on 08/25/17 12:44; Admin Dose 100 MLS/HR; Start at 12:00 Pantoprazole (Protonix Tab) 40 mg DAILY@06 PO ; Start 08/25/17 at 06:00 Hydralazine HCl (Apresoline) 10 mg Q6H PRN IV ELEVATED BLOOD PRESSURE; Start 08/24/17 at 15:30 Levothyroxine Sodium (Synthroid) 25 mcg DAILY@06 NGT ; Start 08/25/17 at 06:00 Acetaminophen (Tylenol Supp) 650 mg Q4H PRN DE TEMP > 37C; Start 08/24/17 at 18 :30 Acetaminophen (Tylenol Supp) 500 mg Q6H [place] ; Start 08/25/17 at 18:30 Acetaminophen (Tylenol Liquid) 500 mg Q6H PO ; Start 08/25/17 at 18:30 Meperidine HCl (Demerol) 12.5 mg Q4H PRN IV POST OPERATIVE SHIVERING; Start at 18:30 Meperidine HCl (Demerol) 25 mg Q4H PRN IV POST OPERATIVE SHIVERING; Start 08/24 at 18:30 Eye Lubricant ([place] Oint) 1 applic Q6 BOTH EYES Last administered on 08/25/17 12:31; Admin Dose 1 APPLIC; Start 08/24/17 at 18:30 Eye Lubricant (Artificial Tears Oph) 2 drop Q6 BOTH EYES Last administered on 08/25/17 12:31; Admin Dose 2 DROP; Start 08/24/17 at 18:30 Diagnostic Test (Pha) (Accu-Chek) 1 ea Q1H XX Last administered on 08/25/17 12 :32; Admin Dose 1 EA; Start 08/24/17 at 18:30 Dextrose (D50w Syringe) 25 ml Q15M PRN IV Till BS 80 mg/dL or above x2; Start 08/24/17 at 18:30 Dextrose 50 ml 50 ml Q15M PRN IV Till BS 80 mg/dL or above x2; Start 08/24/17 at 18:30 Propofol 100 ml @ 3.75 mls/hr Q12H IV Last administered on 08/25/17 09:06; Admin Dose 22.5 MLS/HR; Start 08/24/17 at 19:30 Vecuronium [place] 100 mg/ Dextrose 100 ml @ 6.25 mls/hr TITRATE IV Last administered on 08/25/17 10:44; Admin Dose 2.5 MLS/HR; Start 08/25/17 at 10:00 Levetiracetam (Keppra 500 Mg/ 100ml (Pmx)) 100 ml @ 400 mls/hr Q12 IVPB Last administered on 08/25/17 10:31; Admin Dose 400 MLS/HR; Start 08/25/17 at 10:00 Assessment/Plan Additional Assessment/Plan IMP: 1. s/p Cardiopulmonary arrest--likely due to aspiration and central airway obstruction 2. Seizure Disorder 3. Gram + bacteremia 4. Possible anoxic brain injury. 5. CAP 6. Morbid obesity. 7. Underlying diabetes mellitus. RECS: 1. Transition off hypothermia protocol 2. Anti-epileptic Rx 3. Vent support 4. Abx 5. F/U Cx's 6. DVT and GI prophylaxis 7. EEG once off hypothermia protocol 35 min cc time JULY GRANGER MD Aug 25, 2017 13:11
[2017-08-25 13:16] LABS: CALCIUM 7.8 mg/dl (8.4-10.2); CREATININE 0.81 mg/dl (0.61-1.24); MAGNESIUM 2.1 mg/dl (1.7-2.5); PHOSPHORUS 4.4 mg/dl (2.5-4.9); POTASSIUM 3.4 mmol/L (3.5-5.1)
[2017-08-25 13:27] LABS: TROPONIN-I 0.122 ng/ml (0.00-0.12)
--- NOTE | 2017-08-25 13:29 | PN ---
Date/Time of Note Date/Time of Note DATE: 08/25/17 TIME: 13:24 Assessment/Plan VTE Prophylaxis VTE Prophylaxis Intervention: SCD's Lines/Catheters IV Catheter Type (from Nrs): Central Line Central line still needed: Yes Urinary Cath still in place: Yes Reason Cath still needed: urinary retention Assessment/Plan Chief Complaint/Hosp Course 1. s/p cardiac arrest 2. Sepsis with Gram + bacteremia 3. Morbid obesity 4. Hypertension 5. history of flu like sickness before admission 6. Anemia 7. Seizure Disorder 8. Possible anoxic brain injury. 7. Underlying diabetes mellitus. 8. Decreased Urinary output Problems: Assessment/Plan 1. To determine possible underlying diabetes mellitus check Hg A1 C2 2. Transition off hypothermia protocol at 1630 today 3. Start Anti-epileptic Rx, neurology consult 4. continue critical care Subjective 24 Hr Interval Summary Subjective hx not possible: pt non-verbal, pt critical Exam/Review of Systems Vital Signs Vitals Vital Signs Date Time Temp Pulse Resp B/P Pulse Ox O2 Delivery O2 Flow Rate FiO2 08/25/17 11:30 93.4 64 20 126/96 93 08/25/17 08:00 100 08/24/17 16:00 Mechanical Ventilator 10.0 Intake and Output 08/24/17 08/24/17 08/25/17 15:00 23:00 07:00 Intake Total 4000 ml 793.433 ml 1056.0 ml Output Total 5500 ml 1707 ml 693 ml Balance -1500 ml -913.567 ml 363.0 ml Exam sedated with propofol and vecuronium. Head: normocephalic ENMT: nl external ears & nose Neck: supple Respiratory: diminished breath sounds Cardiovascular: regular rate and rhythm Gastrointestinal: other (NG tube), soft Genitourinary - Male: nl penis, other (wilcox) Results Result Diagram: 08/25/17 1211 08/25/17 1211 Results 24 hrs Laboratory Tests Test 08/24/17 18:17 08/24/17 18:30 08/24/17 18:36 08/24/17 19:43 Blood Gas Specimen Source Blood arterial Arterial Blood Date Drawn 08/24/2017 7:40:38 PM Arterial Blood pH (Temp corrected) 7.568 *H Arterial Blood pCO2 (Temp correct) 29.6 L Arterial Blood pO2 (Temp corrected) 56.3 L Arterial Blood HCO3 27.1 H Arterial Blood Base Excess 4.7 H Arterial Blood Oxygen Saturation 95.3 Kar Test ACCEPTAB Arterial Blood Gas Puncture Site Left Radial Arterial Blood Carboxyhemoglobin 0 Arterial Blood Methemoglobin 0.5 Blood Gas A-a O2 Differential 635.3 H Oxyhemoglobin Percent 94.8 Total Hemoglobin 22.2 H Blood Gas Temperature 33.6 Blood Gas Respiration Rate 20.0 Blood Gas Actual Respiration Rate 20 Blood Gas Modality VENT - AC FiO2 100.0 Blood Gas Tidal Volume 600.0 Blood Gas Low PEEP Setting 5.0 Blood Gas Critical Value Read Back MLIBATIQUE RN Blood Gas Notified Whom MA Blood Gas Notified Time 08/24/2017 7:57:23 PM Bedside Glucose 129 160 White Blood Count 10.6 Red Blood Count 7.47 H Hemoglobin 20.5 H Hematocrit 66.8 H Mean Corpuscular Volume 89.4 Mean Corpuscular Hemoglobin 27.4 L Mean Corpuscular Hemoglobin Concent 30.7 L Red Cell Distribution Width 20.1 H Platelet Count 130 L Mean Platelet Volume 9.4 Neutrophils % 84.0 H Lymphocytes % 7.1 L Monocytes % 7.2 Eosinophils % 0.1 Basophils % 0.8 Nucleated Red Blood Cells % 0.3 H Neutrophils # 8.9 H Lymphocytes # 0.8 Monocytes # 0.8 Eosinophils # 0.0 Basophils # 0.1 Nucleated Red Blood Cells # 0.0 Sodium Level 139 Potassium Level 3.6 Chloride Level 100 Carbon Dioxide Level 30 Anion Gap 13 # Blood Urea Nitrogen 11 Creatinine 0.80 Glucose Level 167 # Calcium Level 7.3 L Phosphorus Level 2.3 L Magnesium Level 1.7 Total Bilirubin 1.9 H Direct Bilirubin 0.00 Indirect Bilirubin 1.9 H Aspartate Amino Transf (AST/SGOT) 101 H Alanine Aminotransferase (ALT/SGPT) 103 H Alkaline Phosphatase 41 L Troponin I 0.541 *H Total Protein 5.8 #L Albumin 3.1 L Globulin 2.70 Albumin/Globulin Ratio 1.14 Test 08/24/17 20:51 08/24/17 21:39 08/24/17 22:36 08/24/17 23:47 Bedside Glucose 141 131 130 122 Test 08/25/17 00:01 08/25/17 00:17 08/25/17 00:25 08/25/17 01:29 White Blood Count 10.5 Red Blood Count 7.42 H Hemoglobin 20.4 H Hematocrit 65.9 H Mean Corpuscular Volume 88.8 Mean Corpuscular Hemoglobin 27.5 L Mean Corpuscular Hemoglobin Concent 31.0 L Red Cell Distribution Width 20.2 H Platelet Count 131 L Mean Platelet Volume 9.0 Neutrophils % 84.0 H Lymphocytes % 7.6 L Monocytes % 6.8 Eosinophils % 0.3 Basophils % 0.8 Nucleated Red Blood Cells % 0.4 H Neutrophils # 8.8 H Lymphocytes # 0.8 Monocytes # 0.7 Eosinophils # 0.0 Basophils # 0.1 Nucleated Red Blood Cells # 0.0 Prothrombin Time 14.3 H Prothrombin Time Ratio 1.1 INR International Normalized Ratio 1.11 Activated Partial Thromboplast Time 26.8 Fibrinogen 442.0 Sodium Level 140 Potassium Level 3.4 L Chloride Level 100 Carbon Dioxide Level 33 H Anion Gap 10 Blood Urea Nitrogen 11 Creatinine 0.80 Glucose Level 135 Calcium Level 7.7 L Phosphorus Level 3.0 Magnesium Level 2.8 #H Troponin I 0.309 *H Amylase Level 90 Lipase 49 Blood Gas Specimen Source Blood arterial Arterial Blood Date Drawn 08/25/2017 12:10:09 AM Arterial Blood pH (Temp corrected) 7.516 H Arterial Blood pCO2 (Temp correct) 31.9 L Arterial Blood pO2 (Temp corrected) 66.9 L Arterial Blood HCO3 25.2 Arterial Blood Base Excess 3.4 H Arterial Blood Oxygen Saturation 93.8 L Kar Test ACCEPTAB Arterial Blood Gas Puncture Site Right Radial Arterial Blood Carboxyhemoglobin 0.1 Arterial Blood Methemoglobin 0.4 Blood Gas A-a O2 Differential 614.2 H Oxyhemoglobin Percent 93.3 Total Hemoglobin 22.0 H Blood Gas Temperature 37.0 Blood Gas Respiration Rate 20.0 Blood Gas Actual Respiration Rate 20 Blood Gas Modality VENT - AC FiO2 100.0 Blood Gas Tidal Volume 600.0 Blood Gas Low PEEP Setting 5.0 Blood Gas Inspiratory Pressure 39.0 Blood Gas Notified Whom BR Blood Gas Notified Time 08/25/2017 12:16:01 AM Bedside Glucose 119 116 Test 08/25/17 02:41 08/25/17 03:34 08/25/17 04:36 08/25/17 04:55 Bedside Glucose 113 125 128 White Blood Count 9.7 Red Blood Count 7.33 H Hemoglobin 19.8 H Hematocrit 65.1 H Mean Corpuscular Volume 88.8 Mean Corpuscular Hemoglobin 27.0 L Mean Corpuscular Hemoglobin Concent 30.4 L Red Cell Distribution Width 21.1 H Platelet Count 121 L Mean Platelet Volume 10.6 H Neutrophils % 84.2 H Lymphocytes % 10.0 L Monocytes % 4.6 Eosinophils % 0.3 Basophils % 0.5 Nucleated Red Blood Cells % 0.4 H Neutrophils # 8.1 H Lymphocytes # 1.0 Monocytes # 0.4 Eosinophils # 0.0 Basophils # 0.1 Nucleated Red Blood Cells # 0.0 Prothrombin Time 14.3 H Prothrombin Time Ratio 1.1 INR International Normalized Ratio 1.11 Activated Partial Thromboplast Time 28.7 Fibrinogen 457.0 Sodium Level 139 Potassium Level 4.2 Chloride Level 100 Carbon Dioxide Level 34 H Anion Gap 9 Blood Urea Nitrogen 11 Creatinine 0.74 Glucose Level 138 Calcium Level 7.5 L Phosphorus Level 3.1 Magnesium Level 2.2 Total Bilirubin 1.6 H Direct Bilirubin 0.00 Indirect Bilirubin 1.6 H Aspartate Amino Transf (AST/SGOT) 101 H Alanine Aminotransferase (ALT/SGPT) 97 H Alkaline Phosphatase 40 L Troponin I 0.210 *H Total Protein 5.2 L Albumin 2.6 L Globulin 2.60 Albumin/Globulin Ratio 1.00 Triglycerides Level 334 H Cholesterol Level 118 LDL Cholesterol, Calculated 30 HDL Cholesterol 21 L Cholesterol/HDL Ratio 5.6 Amylase Level 85 Lipase 53 Test 08/25/17 05:31 08/25/17 05:50 08/25/17 06:00 08/25/17 06:30 Bedside Glucose 121 116 Lactic Acid Level 3.7 *H Blood Gas Specimen Source Blood arterial Arterial Blood Date Drawn 08/25/2017 6:00:43 AM Arterial Blood pH (Temp corrected) 7.569 *H Arterial Blood pCO2 (Temp correct) 28.4 L Arterial Blood pO2 (Temp corrected) 46.7 *L Arterial Blood HCO3 26.2 H Arterial Blood Base Excess 3.8 H Arterial Blood Oxygen Saturation 92.1 L Kar Test ACCEPTAB Arterial Blood Gas Puncture Site Right Radial Arterial Blood Carboxyhemoglobin 0.3 Arterial Blood Methemoglobin 0.4 Blood Gas A-a O2 Differential 647.7 H Oxyhemoglobin Percent 91.5 L Total Hemoglobin 21.8 H Blood Gas Temperature 32.8 Blood Gas Respiration Rate 20.0 Blood Gas Actual Respiration Rate 20 Blood Gas Modality VENT - AC FiO2 100.0 Blood Gas Tidal Volume 600.0 Blood Gas Low PEEP Setting 5.0 Blood Gas Critical Value Read Back MLIBATIQUE RN Blood Gas Notified Whom MA Blood Gas Notified Time 08/25/2017 6:23:44 AM Test 08/25/17 07:45 08/25/17 08:37 08/25/17 09:29 08/25/17 10:39 Bedside Glucose 144 92 116 122 Test 08/25/17 11:36 08/25/17 12:00 08/25/17 12:11 08/25/17 12:28 Bedside Glucose 117 126 Blood Gas Specimen Source Blood arterial Arterial Blood Date Drawn 08/25/2017 12:20:29 PM Arterial Blood pH (Temp corrected) 7.540 H Arterial Blood pCO2 (Temp correct) 32.3 L Arterial Blood pO2 (Temp corrected) 52.9 *L Arterial Blood HCO3 27.7 H Arterial Blood Base Excess 4.5 H Arterial Blood Oxygen Saturation 92.8 L Kar Test ACCEPTAB Arterial Blood Gas Puncture Site Right Radial Arterial Blood Carboxyhemoglobin 0.3 Arterial Blood Methemoglobin 0.5 Blood Gas A-a O2 Differential 635.0 H Oxyhemoglobin Percent 92.1 L Total Hemoglobin 22.6 H Blood Gas Temperature 34.0 Blood Gas Respiration Rate 20.0 Blood Gas Actual Respiration Rate 20 Blood Gas Modality VENT - AC FiO2 100.0 Blood Gas Tidal Volume 600.0 Blood Gas Low PEEP Setting 5.0 Blood Gas Critical Value Read Back BROOKS PRAJAPATI R.N. Blood Gas Notified Whom RT Blood Gas Notified Time 08/25/2017 12:29:11 PM White Blood Count 9.3 Red Blood Count 7.47 H Hemoglobin 20.5 H Hematocrit 66.5 H Mean Corpuscular Volume 89.0 Mean Corpuscular Hemoglobin 27.4 L Mean Corpuscular Hemoglobin Concent 30.8 L Red Cell Distribution Width 20.6 H Platelet Count 128 L Mean Platelet Volume 9.2 Neutrophils % 84.4 H Lymphocytes % 8.6 L Monocytes % 5.5 Eosinophils % 0.6 Basophils % 0.4 Nucleated Red Blood Cells % 0.4 H Neutrophils # 7.9 H Lymphocytes # 0.8 Monocytes # 0.5 Eosinophils # 0.1 Basophils # 0.0 Nucleated Red Blood Cells # 0.0 Prothrombin Time 14.3 H Prothrombin Time Ratio 1.1 INR International Normalized Ratio 1.11 Activated Partial Thromboplast Time 33.2 Fibrinogen 502.0 #H Sodium Level 139 Potassium Level 3.4 L Chloride Level 99 Carbon Dioxide Level 28 Anion Gap 15 Blood Urea Nitrogen 10 Creatinine 0.81 Glucose Level 140 Calcium Level 7.8 L Phosphorus Level 4.4 Magnesium Level 2.1 Troponin I Pending Amylase Level 64 Lipase 43 Medications Medications Current Medications Fentanyl 25 mcg 25 mcg Q10M PRN IV SEDATION; Start 08/24/17 at 07:00 Dextrose/Sodium Chloride (D5-1/2ns) 1,000 ml @ 75 mls/hr [id number] IV Last administered on 08/25/17 10:36; Admin Dose 75 MLS/HR; Start 08/24/17 at 07:23 Flumazenil (Romazicon) 0.2 mg Q1M PRN IV BENZODIAZEPINE OVERDOSE; Start at 07:30 Naloxone HCl (Narcan) 0.4 mg Q3M PRN IV DECREASED REPIRATORY RATE; Start at 07:30 Ondansetron HCl (Zofran Inj) 4 mg Q6H PRN IV NAUSEA AND/OR VOMITING; Start 08/24/17 at 07:30 Nitroglycerin (Nitroglycerin (Sl Tab) 0.4 Mg) 1 tab Q5M PRN SL CHEST PAIN; Start 08/24/17 at 07:30 Acetaminophen (Tylenol Liquid) 650 mg Q6H PRN PO PAIN LEVEL 1-3 OR FEVER; Start 08/24/17 at 07:30 Acetaminophen (Tylenol Tab) 650 mg Q6H PRN PO PAIN LEVEL 1-3 OR FEVER; Start 08/24/17 at 07:30 Acetaminophen (Tylenol Supp) 650 mg Q4H PRN [place] PAIN LEVEL 1-3 OR FEVER; Start 08/24/17 at 07:30 Ibuprofen (Motrin) 600 mg Q6H PRN PO PAIN LEVEL 1-3 OR FEVER; Start 08/24/17 at 07:30 Acetaminophen/ Hydrocodone Bitart ([place] (5/325)) 1 tab Q6H PRN PO PAIN LEVEL 4 -6; Start 08/24/17 at 07:30 Morphine Sulfate (morphine) 2 mg Q4H PRN IV PAIN LEVEL 7-10; Start 08/24/17 at 07:30 Lorazepam (Ativan) 1 mg Q2H PRN IV ANXIETY Last administered on 08/25/17 09:11 ; Admin Dose 1 MG; Start 08/24/17 at 07:30 Docusate Sodium (Colace) 100 mg Q12H PRN PO CONSTIPATION; Start 08/24/17 at 07: 30 Magnesium Hydroxide (Milk Of Mag) 30 ml DAILY PRN PO CONSTIPATION; Start at 07:30 Bisacodyl (Dulcolax) 5 mg DAILY PRN PO CONSTIPATION; Start 08/24/17 at 07:30 Bisacodyl (Dulcolax Supp) 10 mg DAILY PRN [place] CONSTIPATION; Start 08/24/17 at 07 :30 Sodium Biphosphate/ Sodium Phosphate (Fleet Enema) 133 ml DAILY PRN [place] CONSTIPATION; Start 08/24/17 at 07:30 Eye Lubricant (Artificial Tears Oph) 1 drop TID BOTH EYES Last administered on 08/25/17 12:44; Admin Dose 1 DROP; Start 08/24/17 at 09:00 Enoxaparin Sodium 40 mg 40 mg DAILY SC Last administered on 08/25/17 09:20; Admin Dose 40 MG; Start 08/24/17 at 09:00 Piperacillin Sod/ Tazobactam Sod (Zosyn 3.375gm/ 50 ml (Pmx)) 50 ml @ 0 mls/hr Q6 IV Last administered on 08/25/17 12:44; Admin Dose 100 MLS/HR; Start at 12:00 Pantoprazole (Protonix Tab) 40 mg DAILY@06 PO ; Start 08/25/17 at 06:00 Hydralazine HCl (Apresoline) 10 mg Q6H PRN IV ELEVATED BLOOD PRESSURE; Start 08/24/17 at 15:30 Levothyroxine Sodium (Synthroid) 25 mcg DAILY@06 NGT ; Start 08/25/17 at 06:00 Acetaminophen (Tylenol Supp) 650 mg Q4H PRN [place] TEMP > 37C; Start 08/24/17 at 18 :30 Acetaminophen (Tylenol Supp) 500 mg Q6H [place] ; Start 08/25/17 at 18:30 Acetaminophen (Tylenol Liquid) 500 mg Q6H PO ; Start 08/25/17 at 18:30 Meperidine HCl (Demerol) 12.5 mg Q4H PRN IV POST OPERATIVE SHIVERING; Start at 18:30 Meperidine HCl (Demerol) 25 mg Q4H PRN IV POST OPERATIVE SHIVERING; Start 08/24 at 18:30 Eye Lubricant ([place] Oint) 1 applic Q6 BOTH EYES Last administered on 08/25/17 12:31; Admin Dose 1 APPLIC; Start 08/24/17 at 18:30 Eye Lubricant (Artificial Tears Oph) 2 drop Q6 BOTH EYES Last administered on 08/25/17 12:31; Admin Dose 2 DROP; Start 08/24/17 at 18:30 Diagnostic Test (Pha) (Accu-Chek) 1 ea Q1H XX Last administered on 08/25/17 12 :32; Admin Dose 1 EA; Start 08/24/17 at 18:30 Dextrose (D50w Syringe) 25 ml Q15M PRN IV Till BS 80 mg/dL or above x2; Start 08/24/17 at 18:30 Dextrose 50 ml 50 ml Q15M PRN IV Till BS 80 mg/dL or above x2; Start 08/24/17 at 18:30 Propofol 100 ml @ 3.75 mls/hr Q12H IV Last administered on 08/25/17 09:06; Admin Dose 22.5 MLS/HR; Start 08/24/17 at 19:30 Vecuronium [place] 100 mg/ Dextrose 100 ml @ 6.25 mls/hr TITRATE IV Last administered on 08/25/17 10:44; Admin Dose 2.5 MLS/HR; Start 08/25/17 at 10:00 Levetiracetam (Keppra 500 Mg/ 100ml (Pmx)) 100 ml @ 400 mls/hr Q12 IVPB Last administered on 08/25/17 10:31; Admin Dose 400 MLS/HR; Start 08/25/17 at 10:00 AMALIA LUKE Aug 25, 2017 13:29
[2017-08-25] MEDS ORDERED: VANCOMYCIN IV PER PHARMACY XX SCH (14:00)
--- NOTE | 2017-08-25 14:47 | CONS ---
Date/Time of Note Date/Time of Note DATE: 08/25/17 TIME: 14:41 Assessment/Plan Assessment/Plan Additional Assessment/Plan PEA arrest Respiratory failure Hypertension Anoxic Encephalopathy. Hypothyroidism. Seizures Bacteremia Diabetes Hypothyroidism Hemodynamically stable not on Vasopressors Continue Vent support Continue Antibiotics Continue Insulin drip Continue Synthroid Continue Keppra Continue GI and DVT Prophylaxis Aggressive pulmonary toiletry Consultation Date/Type/Reason Admit Date/Time Aug 24, 2017 at 07:05 Past Medical History Medical History: diabetes, hypertension Past Surgical History Past Surgical Hx: no surgical history Social History Alcohol Use: none Smoking Status: Former smoker Drug Use: none Exam/Review of Systems Vital Signs Vitals Vital Signs Date Time Temp Pulse Resp B/P Pulse Ox O2 Delivery O2 Flow Rate FiO2 08/25/17 14:00 91.9 20 113/96 96 08/25/17 13:15 60 08/25/17 08:00 100 08/24/17 16:00 Mechanical Ventilator 10.0 Intake and Output 08/24/17 08/24/17 08/25/17 15:00 23:00 07:00 Intake Total 4000 ml 793.433 ml 1056.0 ml Output Total 5500 ml 1707 ml 693 ml Balance -1500 ml -913.567 ml 363.0 ml Exam Gen Intubated on sedated HEENT NAD CVS RRR, No m/r/g Chest Mechanical breath sounds heard bilaterally Abdomen Soft BS heard Ext Trace pedal edema Constitutional: non-verbal Results Result Diagram: 08/25/17 1211 08/25/17 1211 Results 24 hrs Laboratory Tests Test 08/24/17 18:17 08/24/17 18:30 08/24/17 18:36 08/24/17 19:43 Blood Gas Specimen Source Blood arterial Arterial Blood Date Drawn 08/24/2017 7:40:38 PM Arterial Blood pH (Temp corrected) 7.568 *H Arterial Blood pCO2 (Temp correct) 29.6 L Arterial Blood pO2 (Temp corrected) 56.3 L Arterial Blood HCO3 27.1 H Arterial Blood Base Excess 4.7 H Arterial Blood Oxygen Saturation 95.3 Kar Test ACCEPTAB Arterial Blood Gas Puncture Site Left Radial Arterial Blood Carboxyhemoglobin 0 Arterial Blood Methemoglobin 0.5 Blood Gas A-a O2 Differential 635.3 H Oxyhemoglobin Percent 94.8 Total Hemoglobin 22.2 H Blood Gas Temperature 33.6 Blood Gas Respiration Rate 20.0 Blood Gas Actual Respiration Rate 20 Blood Gas Modality VENT - AC FiO2 100.0 Blood Gas Tidal Volume 600.0 Blood Gas Low PEEP Setting 5.0 Blood Gas Critical Value Read Back MLIBATIQUE RN Blood Gas Notified Whom MA Blood Gas Notified Time 08/24/2017 7:57:23 PM Bedside Glucose 129 160 White Blood Count 10.6 Red Blood Count 7.47 H Hemoglobin 20.5 H Hematocrit 66.8 H Mean Corpuscular Volume 89.4 Mean Corpuscular Hemoglobin 27.4 L Mean Corpuscular Hemoglobin Concent 30.7 L Red Cell Distribution Width 20.1 H Platelet Count 130 L Mean Platelet Volume 9.4 Neutrophils % 84.0 H Lymphocytes % 7.1 L Monocytes % 7.2 Eosinophils % 0.1 Basophils % 0.8 Nucleated Red Blood Cells % 0.3 H Neutrophils # 8.9 H Lymphocytes # 0.8 Monocytes # 0.8 Eosinophils # 0.0 Basophils # 0.1 Nucleated Red Blood Cells # 0.0 Sodium Level 139 Potassium Level 3.6 Chloride Level 100 Carbon Dioxide Level 30 Anion Gap 13 # Blood Urea Nitrogen 11 Creatinine 0.80 Glucose Level 167 # Calcium Level 7.3 L Phosphorus Level 2.3 L Magnesium Level 1.7 Total Bilirubin 1.9 H Direct Bilirubin 0.00 Indirect Bilirubin 1.9 H Aspartate Amino Transf (AST/SGOT) 101 H Alanine Aminotransferase (ALT/SGPT) 103 H Alkaline Phosphatase 41 L Troponin I 0.541 *H Total Protein 5.8 #L Albumin 3.1 L Globulin 2.70 Albumin/Globulin Ratio 1.14 Test 08/24/17 20:51 08/24/17 21:39 08/24/17 22:36 08/24/17 23:47 Bedside Glucose 141 131 130 122 Test 08/25/17 00:01 08/25/17 00:17 08/25/17 00:25 08/25/17 01:29 White Blood Count 10.5 Red Blood Count 7.42 H Hemoglobin 20.4 H Hematocrit 65.9 H Mean Corpuscular Volume 88.8 Mean Corpuscular Hemoglobin 27.5 L Mean Corpuscular Hemoglobin Concent 31.0 L Red Cell Distribution Width 20.2 H Platelet Count 131 L Mean Platelet Volume 9.0 Neutrophils % 84.0 H Lymphocytes % 7.6 L Monocytes % 6.8 Eosinophils % 0.3 Basophils % 0.8 Nucleated Red Blood Cells % 0.4 H Neutrophils # 8.8 H Lymphocytes # 0.8 Monocytes # 0.7 Eosinophils # 0.0 Basophils # 0.1 Nucleated Red Blood Cells # 0.0 Prothrombin Time 14.3 H Prothrombin Time Ratio 1.1 INR International Normalized Ratio 1.11 Activated Partial Thromboplast Time 26.8 Fibrinogen 442.0 Sodium Level 140 Potassium Level 3.4 L Chloride Level 100 Carbon Dioxide Level 33 H Anion Gap 10 Blood Urea Nitrogen 11 Creatinine 0.80 Glucose Level 135 Calcium Level 7.7 L Phosphorus Level 3.0 Magnesium Level 2.8 #H Troponin I 0.309 *H Amylase Level 90 Lipase 49 Blood Gas Specimen Source Blood arterial Arterial Blood Date Drawn 08/25/2017 12:10:09 AM Arterial Blood pH (Temp corrected) 7.516 H Arterial Blood pCO2 (Temp correct) 31.9 L Arterial Blood pO2 (Temp corrected) 66.9 L Arterial Blood HCO3 25.2 Arterial Blood Base Excess 3.4 H Arterial Blood Oxygen Saturation 93.8 L Kar Test ACCEPTAB Arterial Blood Gas Puncture Site Right Radial Arterial Blood Carboxyhemoglobin 0.1 Arterial Blood Methemoglobin 0.4 Blood Gas A-a O2 Differential 614.2 H Oxyhemoglobin Percent 93.3 Total Hemoglobin 22.0 H Blood Gas Temperature 37.0 Blood Gas Respiration Rate 20.0 Blood Gas Actual Respiration Rate 20 Blood Gas Modality VENT - AC FiO2 100.0 Blood Gas Tidal Volume 600.0 Blood Gas Low PEEP Setting 5.0 Blood Gas Inspiratory Pressure 39.0 Blood Gas Notified Whom BR Blood Gas Notified Time 08/25/2017 12:16:01 AM Bedside Glucose 119 116 Test 08/25/17 02:41 08/25/17 03:34 08/25/17 04:36 08/25/17 04:55 Bedside Glucose 113 125 128 White Blood Count 9.7 Red Blood Count 7.33 H Hemoglobin 19.8 H Hematocrit 65.1 H Mean Corpuscular Volume 88.8 Mean Corpuscular Hemoglobin 27.0 L Mean Corpuscular Hemoglobin Concent 30.4 L Red Cell Distribution Width 21.1 H Platelet Count 121 L Mean Platelet Volume 10.6 H Neutrophils % 84.2 H Lymphocytes % 10.0 L Monocytes % 4.6 Eosinophils % 0.3 Basophils % 0.5 Nucleated Red Blood Cells % 0.4 H Neutrophils # 8.1 H Lymphocytes # 1.0 Monocytes # 0.4 Eosinophils # 0.0 Basophils # 0.1 Nucleated Red Blood Cells # 0.0 Prothrombin Time 14.3 H Prothrombin Time Ratio 1.1 INR International Normalized Ratio 1.11 Activated Partial Thromboplast Time 28.7 Fibrinogen 457.0 Sodium Level 139 Potassium Level 4.2 Chloride Level 100 Carbon Dioxide Level 34 H Anion Gap 9 Blood Urea Nitrogen 11 Creatinine 0.74 Glucose Level 138 Calcium Level 7.5 L Phosphorus Level 3.1 Magnesium Level 2.2 Total Bilirubin 1.6 H Direct Bilirubin 0.00 Indirect Bilirubin 1.6 H Aspartate Amino Transf (AST/SGOT) 101 H Alanine Aminotransferase (ALT/SGPT) 97 H Alkaline Phosphatase 40 L Troponin I 0.210 *H Total Protein 5.2 L Albumin 2.6 L Globulin 2.60 Albumin/Globulin Ratio 1.00 Triglycerides Level 334 H Cholesterol Level 118 LDL Cholesterol, Calculated 30 HDL Cholesterol 21 L Cholesterol/HDL Ratio 5.6 Amylase Level 85 Lipase 53 Test 08/25/17 05:31 08/25/17 05:50 08/25/17 06:00 08/25/17 06:30 Bedside Glucose 121 116 Lactic Acid Level 3.7 *H Blood Gas Specimen Source Blood arterial Arterial Blood Date Drawn 08/25/2017 6:00:43 AM Arterial Blood pH (Temp corrected) 7.569 *H Arterial Blood pCO2 (Temp correct) 28.4 L Arterial Blood pO2 (Temp corrected) 46.7 *L Arterial Blood HCO3 26.2 H Arterial Blood Base Excess 3.8 H Arterial Blood Oxygen Saturation 92.1 L Kar Test ACCEPTAB Arterial Blood Gas Puncture Site Right Radial Arterial Blood Carboxyhemoglobin 0.3 Arterial Blood Methemoglobin 0.4 Blood Gas A-a O2 Differential 647.7 H Oxyhemoglobin Percent 91.5 L Total Hemoglobin 21.8 H Blood Gas Temperature 32.8 Blood Gas Respiration Rate 20.0 Blood Gas Actual Respiration Rate 20 Blood Gas Modality VENT - AC FiO2 100.0 Blood Gas Tidal Volume 600.0 Blood Gas Low PEEP Setting 5.0 Blood Gas Critical Value Read Back MLIBATIQUE RN Blood Gas Notified Whom MA Blood Gas Notified Time 08/25/2017 6:23:44 AM Test 08/25/17 07:45 08/25/17 08:37 08/25/17 09:29 08/25/17 10:39 Bedside Glucose 144 92 116 122 Test 08/25/17 11:36 08/25/17 12:00 08/25/17 12:11 08/25/17 12:28 Bedside Glucose 117 126 Blood Gas Specimen Source Blood arterial Arterial Blood Date Drawn 08/25/2017 12:20:29 PM Arterial Blood pH (Temp corrected) 7.540 H Arterial Blood pCO2 (Temp correct) 32.3 L Arterial Blood pO2 (Temp corrected) 52.9 *L Arterial Blood HCO3 27.7 H Arterial Blood Base Excess 4.5 H Arterial Blood Oxygen Saturation 92.8 L Kar Test ACCEPTAB Arterial Blood Gas Puncture Site Right Radial Arterial Blood Carboxyhemoglobin 0.3 Arterial Blood Methemoglobin 0.5 Blood Gas A-a O2 Differential 635.0 H Oxyhemoglobin Percent 92.1 L Total Hemoglobin 22.6 H Blood Gas Temperature 34.0 Blood Gas Respiration Rate 20.0 Blood Gas Actual Respiration Rate 20 Blood Gas Modality VENT - AC FiO2 100.0 Blood Gas Tidal Volume 600.0 Blood Gas Low PEEP Setting 5.0 Blood Gas Critical Value Read Back BROOKS PRAJAPATI R.N. Blood Gas Notified Whom RT Blood Gas Notified Time 08/25/2017 12:29:11 PM White Blood Count 9.3 Red Blood Count 7.47 H Hemoglobin 20.5 H Hematocrit 66.5 H Mean Corpuscular Volume 89.0 Mean Corpuscular Hemoglobin 27.4 L Mean Corpuscular Hemoglobin Concent 30.8 L Red Cell Distribution Width 20.6 H Platelet Count 128 L Mean Platelet Volume 9.2 Neutrophils % 84.4 H Lymphocytes % 8.6 L Monocytes % 5.5 Eosinophils % 0.6 Basophils % 0.4 Nucleated Red Blood Cells % 0.4 H Neutrophils # 7.9 H Lymphocytes # 0.8 Monocytes # 0.5 Eosinophils # 0.1 Basophils # 0.0 Nucleated Red Blood Cells # 0.0 Prothrombin Time 14.3 H Prothrombin Time Ratio 1.1 INR International Normalized Ratio 1.11 Activated Partial Thromboplast Time 33.2 Fibrinogen 502.0 #H Sodium Level 139 Potassium Level 3.4 L Chloride Level 99 Carbon Dioxide Level 28 Anion Gap 15 Blood Urea Nitrogen 10 Creatinine 0.81 Glucose Level 140 Hemoglobin A1c 9.1 H Calcium Level 7.8 L Phosphorus Level 4.4 Magnesium Level 2.1 Troponin I 0.122 *H Amylase Level 64 Lipase 43 Test 08/25/17 13:41 08/25/17 14:25 Bedside Glucose 123 111 Medications Medications Current Medications Fentanyl 25 mcg 25 mcg Q10M PRN IV SEDATION; Start 08/24/17 at 07:00 Dextrose/Sodium Chloride (D5-1/2ns) 1,000 ml @ 75 mls/hr [id number] IV Last administered on 08/25/17 10:36; Admin Dose 75 MLS/HR; Start 08/24/17 at 07:23 Flumazenil (Romazicon) 0.2 mg Q1M PRN IV BENZODIAZEPINE OVERDOSE; Start at 07:30 Naloxone HCl (Narcan) 0.4 mg Q3M PRN IV DECREASED REPIRATORY RATE; Start at 07:30 Ondansetron HCl (Zofran Inj) 4 mg Q6H PRN IV NAUSEA AND/OR VOMITING; Start 08/24/17 at 07:30 Nitroglycerin (Nitroglycerin (Sl Tab) 0.4 Mg) 1 tab Q5M PRN SL CHEST PAIN; Start 08/24/17 at 07:30 Acetaminophen (Tylenol Liquid) 650 mg Q6H PRN PO PAIN LEVEL 1-3 OR FEVER; Start 08/24/17 at 07:30 Acetaminophen (Tylenol Tab) 650 mg Q6H PRN PO PAIN LEVEL 1-3 OR FEVER; Start 08/24/17 at 07:30 Acetaminophen (Tylenol Supp) 650 mg Q4H PRN [place] PAIN LEVEL 1-3 OR FEVER; Start 08/24/17 at 07:30 Ibuprofen (Motrin) 600 mg Q6H PRN PO PAIN LEVEL 1-3 OR FEVER; Start 08/24/17 at 07:30 Acetaminophen/ Hydrocodone Bitart ([place] (5/325)) 1 tab Q6H PRN PO PAIN LEVEL 4 -6; Start 08/24/17 at 07:30 Morphine Sulfate (morphine) 2 mg Q4H PRN IV PAIN LEVEL 7-10; Start 08/24/17 at 07:30 Lorazepam (Ativan) 1 mg Q2H PRN IV ANXIETY Last administered on 08/25/17 09:11 ; Admin Dose 1 MG; Start 08/24/17 at 07:30 Docusate Sodium (Colace) 100 mg Q12H PRN PO CONSTIPATION; Start 08/24/17 at 07: 30 Magnesium Hydroxide (Milk Of Mag) 30 ml DAILY PRN PO CONSTIPATION; Start at 07:30 Bisacodyl (Dulcolax) 5 mg DAILY PRN PO CONSTIPATION; Start 08/24/17 at 07:30 Bisacodyl (Dulcolax Supp) 10 mg DAILY PRN [place] CONSTIPATION; Start 08/24/17 at 07 :30 Sodium Biphosphate/ Sodium Phosphate (Fleet Enema) 133 ml DAILY PRN [place] CONSTIPATION; Start 08/24/17 at 07:30 Eye Lubricant (Artificial Tears Oph) 1 drop TID BOTH EYES Last administered on 08/25/17 12:44; Admin Dose 1 DROP; Start 08/24/17 at 09:00 Enoxaparin Sodium 40 mg 40 mg DAILY SC Last administered on 08/25/17 09:20; Admin Dose 40 MG; Start 08/24/17 at 09:00 Piperacillin Sod/ Tazobactam Sod (Zosyn 3.375gm/ 50 ml (Pmx)) 50 ml @ 0 mls/hr Q6 IV Last administered on 08/25/17 12:44; Admin Dose 100 MLS/HR; Start at 12:00 Pantoprazole (Protonix Tab) 40 mg DAILY@06 PO ; Start 08/25/17 at 06:00 Hydralazine HCl (Apresoline) 10 mg Q6H PRN IV ELEVATED BLOOD PRESSURE; Start 08/24/17 at 15:30 Levothyroxine Sodium (Synthroid) 25 mcg DAILY@06 NGT ; Start 08/25/17 at 06:00 Acetaminophen (Tylenol Supp) 650 mg Q4H PRN AK TEMP > 37C; Start 08/24/17 at 18 :30 Acetaminophen (Tylenol Supp) 500 mg Q6H [place] ; Start 08/25/17 at 18:30 Acetaminophen (Tylenol Liquid) 500 mg Q6H PO ; Start 08/25/17 at 18:30 Meperidine HCl (Demerol) 12.5 mg Q4H PRN IV POST OPERATIVE SHIVERING; Start at 18:30 Meperidine HCl (Demerol) 25 mg Q4H PRN IV POST OPERATIVE SHIVERING; Start 08/24 at 18:30 Eye Lubricant ([place] Oint) 1 applic Q6 BOTH EYES Last administered on 08/25/17 12:31; Admin Dose 1 APPLIC; Start 08/24/17 at 18:30 Eye Lubricant (Artificial Tears Oph) 2 drop Q6 BOTH EYES Last administered on 08/25/17 12:31; Admin Dose 2 DROP; Start 08/24/17 at 18:30 Diagnostic Test (Pha) (Accu-Chek) 1 ea Q1H XX Last administered on 08/25/17 14 :26; Admin Dose 1 EA; Start 08/24/17 at 18:30 Dextrose (D50w Syringe) 25 ml Q15M PRN IV Till BS 80 mg/dL or above x2; Start 08/24/17 at 18:30 Dextrose 50 ml 50 ml Q15M PRN IV Till BS 80 mg/dL or above x2; Start 08/24/17 at 18:30 Propofol 100 ml @ 3.75 mls/hr Q12H IV Last administered on 08/25/17 14:18; Admin Dose 15 MLS/HR; Start 08/24/17 at 19:30 Vecuronium [place] 100 mg/ Dextrose 100 ml @ 6.25 mls/hr TITRATE IV Last administered on 08/25/17 10:44; Admin Dose 2.5 MLS/HR; Start 08/25/17 at 10:00 Levetiracetam 100 ml @ 400 mls/hr Q12 IVPB Last administered on 08/25/17 10: 31; Admin Dose 400 MLS/HR; Start 08/25/17 at 10:00 Vancomycin HCl 2 gm/Sodium Chloride 500 ml @ 125 mls/hr ONCE IVPB ; Start 08/25 at 16:00; Stop 08/25/17 at 23:59 Vancomycin HCl/ Sodium Chloride (Vancocin/NS) 250 ml @ 83.333 mls/ hr Q12H IVPB ; Start 08/26/17 at 04:00 APOLLO RIOS M.D. Aug 25, 2017 14:47
[2017-08-25] MEDS ORDERED: VANCOMYCIN 2 GM in SOD CHLORIDE 0.9% 500 ML IVPB SCH (16:00)
--- NOTE | 2017-08-25 16:41 | RADRPT ---
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 Physician: SKYLAR ABDALLA Quality: Technically Difficult Study Procedures: Transthoracic echocardiogram with complete 2D, M-Mode, and doppler examination. Indications: Cardiac Arrest. 2D/M Mode Doppler Measurement Value Normal Ranges Measurement Value Normal Ranges AoR Diam MM 3.3 cm PEPE Vmax 2.4 cm2 LA/Ao MM 1.1 PEPE VTI 2.4 cm2 LA Dimen MM 3.7 cm AV Mean Rolo 0.6 m/sec LVIDd 2D 5.6 3.5 - 5.6 cm AV Mean PG 1.5 mmHg LVIDs 2D 4.2 2.1 - 4.1 cm AV Peak Rolo 0.8 m/sec LVPWd 2D 1.4 0.6 - 1.1 cm AV Peak PG 2.9 mmHg IVSd 2D 1.4 0.6 - 1.1 cm AV VTI 14.4 cm EDV 2D 153.5 cm3 LVOT Peak Rolo 0.6 m/sec ESV 2D 72.0 cm3 LVOT Peak PG 1.7 mmHg EF 2D 50.0 50.0 - 65.0 % MV E Peak Rolo 0.4 m/sec LVOT Diam 2.0 cm MV A Peak Rolo 0.5 m/sec MV E/A 0.8 MV Decel Time 233 msec MV Decel Tucker 2 MV E/A 0.8 TR Peak Rolo 2.6 m/sec TR Peak PG 26.7 mmHg RVSP 42.0 mmHg RA Pressure 15.0 Findings Left Ventricle: Lower limits of normal systolic function. Normal left ventricular cavity however upper limit in size. Mild-Moderate concentric left ventricular hypertrophy. Ejection fraction is visually estimated at 50 %. Abnormal Diastolic Function. Right Ventricle: Normal right ventricular systolic function. Mild enlargement of right ventricle. Left Atrium: The left atrium is normal in size. Right Atrium: The right atrium is normal in size. Mitral Valve: Normal appearance and function of the mitral valve with trace physiologic regurgitation. Aortic Valve: Normal appearance of the aortic valve. No significant aortic stenosis or insufficiency. Tricuspid Valve: Normal appearance of the tricuspid valve. Estimated peak PA systolic pressure 42 mmHg. There is mild tricuspid regurgitation. Pulmonic Valve: Normal pulmonic valve appearance. There is trace to mild pulmonic regurgitation. Pericardium: Normal pericardium with no significant pericardial effusion. Aorta: Normal aortic root. IVC: Dilated IVC without respiratory collapse consistent with elevated right atrial pressure. Conclusions 1.TDS, due to body habitus and patient laying in supine position. 2.Lower limits of normal systolic function. Normal left ventricular cavity however upper limit in size. Mild-Moderate concentric left ventricular hypertrophy. Ejection fraction is visually estimated at 50 %. Abnormal Diastolic Function. 3.Normal right ventricular systolic function. Mild enlargement of right ventricle. 4.Normal appearance of the tricuspid valve. Estimated peak PA systolic pressure 42 mmHg. There is mild tricuspid regurgitation. 5.Normal appearance and function of the mitral valve with trace physiologic regurgitation. 6.Normal appearance of the aortic valve. No significant aortic stenosis or insufficiency. 7.Normal pericardium with no significant pericardial effusion. Electronically Signed By: Richard Martin 25-Aug-2017 16:41:07 -0700 Patient Name: JABARI GUIDRY Study Date: 25-Aug-2017 [id number]
[2017-08-25] MEDS ORDERED: SOD CHLORIDE 0.9% 1,000 ML IV ONE (17:00)
[2017-08-25] MEDS: ACETAMINOPHEN 650MG/20.3ML CUP PO SCH ×2 (17:49→23:55)
[2017-08-25] MEDS: ACETAMINOPHEN 650 MG SUPP PR SCH (17:49)
[2017-08-25] MEDS ORDERED: POTASSIUM CHLORIDE 30 MEQ in DEXTROSE 5% 250 ML IVPB ONE (18:30)
[2017-08-25] MEDS ORDERED: LORAZEPAM 2 MG INJ IM ONE (19:00)
[2017-08-25] MEDS ORDERED: LORAZEPAM 2 MG INJ IV ONE (19:30)
[2017-08-25 19:37] LABS: BASOPHIL # 0.1 10^3/ul (0.0-0.1); BASOPHILS % 0.6 % (0.0-2.0); EOSINOPHILS # 0.1 10^3/ul (0.0-0.5); HEMATOCRIT 63.6 % (42.0-52.0); HEMOGLOBIN 19.9 g/dl (14.0-18.0); LYMPHOCYTES # 0.8 10^3/ul (0.8-2.9); LYMPHOCYTES % 9.9 % (15.0-51.0); MEAN CORPUSCULAR HEMOGLOBIN 27.7 pg (29.0-33.0); MEAN CORPUSCULAR HGB CONC 31.3 g/dl (32.0-37.0); MEAN CORPUSCULAR VOLUME 88.6 fl (82.0-101.0); MEAN PLATELET VOLUME 10.9 fl (7.4-10.4); MONOCYTE # 0.4 10^3/ul (0.3-0.9); NEUTROPHIL # 6.9 10^3/ul (1.6-7.5); NEUTROPHILS % 82.9 % (39.0-77.0); NUCLEATED RED BLOOD CELLS% 0.2 /100WBC (0.0-0.0); PLATELET COUNT 105 10^3/UL (140-415); POSITIVE DIFF @See below; RED BLOOD COUNT 7.18 10^6/ul (4.70-6.10); RED CELL DISTRIBUTION WIDTH 20.5 % (11.5-14.5); WHITE BLOOD COUNT 8.3 10^3/ul (4.8-10.8)
[2017-08-25 19:47] LABS: INR 1.07; PROTIME 13.9 Sec (12.2-14.2); PT RATIO 1.1
[2017-08-25 19:48] LABS: PARTIAL THROMBOPLASTIN TIME 24.7 Sec (25.0-35.0)
[2017-08-25 19:53] LABS: CALCIUM 7.1 mg/dl (8.4-10.2); CREATININE 0.67 mg/dl (0.61-1.24); MAGNESIUM 1.8 mg/dl (1.7-2.5)
[2017-08-25 20:04] LABS: TROPONIN-I 0.093 ng/ml (0.00-0.12)
[2017-08-25 20:45] LABS: AADO2 Arterial 632.8 mmHg (7.0-24.0); Allen Test ACCEPTAB; Arterial Base Excess 0.5 mmol/L (-3.0-3); Arterial COHb 0.3 % (0.0-3.0); Arterial Fraction of Oxyhgb 88.1 % (93.0-99.0); Arterial HCO3 27.4 mmol/L (22.0-26.0); Arterial MetHb 0.4 % (0.0-1.5); Arterial Total Hemglobin 22.9 g/dl (12.0-18.0); MODE VENT - AC
[2017-08-26] VITALS (105 sets, daily range): BP systolic 81–144; BP diastolic 30–108; PULSE 71–123; RESP 20–44
[2017-08-26] MEDS: ACETAMINOPHEN 650 MG SUPP PR SCH ×5 (00:30→18:30)
[2017-08-26] MEDS: ACCU-CHEK XX SCH ×23 (00:59→22:58)
[2017-08-26] MEDS: ACETYLCYSTEINE 20% 4 ML VIAL NEB SCH ×4 (01:31→21:06)
[2017-08-26] MEDS: IPRATROPIUM (HFA) 12.9 GM INHALER INH SCH ×7 (01:31→21:07)
[2017-08-26] MEDS: ALBUTEROL HFA 8 GM INHALER INH SCH ×7 (01:31→21:06)
[2017-08-26 01:43] LABS: CALCIUM 7.6 mg/dl (8.4-10.2); CREATININE 0.8 mg/dl (0.61-1.24); POTASSIUM 3.7 mmol/L (3.5-5.1)
[2017-08-26] MEDS ORDERED: FUROSEMIDE 10 ML ONE (03:21)
[2017-08-26] MEDS: VANCOMYCIN 1.5 GM in SOD CHLORIDE 0.9% 250 ML IVPB SCH ×2 (03:27→16:34)
[2017-08-26] MEDS ORDERED: FUROSEMIDE 40 MG INJ IV ONE (03:30)
[2017-08-26] MEDS: PANTOPRAZOLE (EC) 40 MG TAB PO SCH (05:18)
[2017-08-26 05:25] LABS: AADO2 Arterial 605.1 mmHg (7.0-24.0); Allen Test ACCEPTAB; Arterial Base Excess -2.5 mmol/L (-3.0-3); Arterial COHb 0.4 % (0.0-3.0); Arterial Fraction of Oxyhgb 88.9 % (93.0-99.0); Arterial HCO3 24.1 mmol/L (22.0-26.0); Arterial MetHb 0.4 % (0.0-1.5); Arterial Total Hemglobin 8.4 g/dl (12.0-18.0); MODE VENT - AC
[2017-08-26] MEDS: OCULAR LUBRICANT 3.5 GM OPH OINT BOTH EYES SCH ×3 (05:36→17:55)
[2017-08-26] MEDS: PIPER-TAZO 3.375 GM IV (PMX) 50 ML IV SCH ×4 (05:36→23:27)
[2017-08-26] MEDS: ARTIFICIAL TEARS 15 ML OPH BOTH EYES SCH ×6 (05:36→20:38)
[2017-08-26] MEDS: LEVOTHYROXINE 25 MCG TAB NGT SCH (05:37)
[2017-08-26] MEDS: ACETAMINOPHEN 650MG/20.3ML CUP PO SCH ×3 (06:07→17:55)
[2017-08-26] MEDS: PROPOFOL 100 ML IV SCH ×6 (07:56→23:27)
[2017-08-26] MEDS: LEVETIRACETAM 500 MG (PMX) 100 ML IVPB SCH ×2 (08:05→20:33)
[2017-08-26] MEDS: ENOXAPARIN 40 MG/0.4 ML SYG SC SCH (08:06)
[2017-08-26 09:26] LABS: CALCIUM 7.6 mg/dl (8.4-10.2); CREATININE 0.85 mg/dl (0.61-1.24); POTASSIUM 3.7 mmol/L (3.5-5.1)
[2017-08-26] MEDS: LORAZEPAM 2 MG INJ IV PRN ×2 (09:48→23:18)
--- NOTE | 2017-08-26 09:51 | CONS ---
Date/Time of Note Date/Time of Note DATE: 08/26/17 TIME: 09:15 Assessment/Plan Assessment/Plan Chief Complaint/Hosp Course ID PROGRESS NOTE CURRENT ABX: DAY # 3 => Vanco IV + Zosyn 08/25/17 1842 08/26/17 0034 24H INTERVAL SUMMARY * Non-communicative = * No fevers, s/p hypothermia protocol, WBC normalized * 08/25/17 CXR: Improving interstitial pulmonary edema, which is now mild to moderate. Superimposed infection to be determined clinically. -- Physical Exam Physical Exam Constitutional: Non-communicative, restless on the Vent, hypothermia protocol in warming process HEENT: Eyes partially open, no tracking, bilat lower eyelid ectropion, moist oral membranes * ETT/OGT secure to face and Vent, (+)Gag reflex on ETT Neck: Increased neck circumference makes JVD difficult to assess Respiratory: Clear anterior, vented, Cardiovascular: NSR on tele, radial pulses 2+ bilaterally Gastrointestinal: Soft, obese, NT Extremities: Warm, edema Neurological: Deferred s/p sedation ID ASSESSMENT 36-yo obese M admit with 1. s/p Cardiopulmonary arrest at home--likely due to aspiration and central airway obstruction * PEA arrest w/ROSC in ED -> acute myocardial infarction w/(+)Troponins * Seizure activity @ home -> anoxic brain injury 2. Sepsis on admission w/leukocytosis, tachycardia, HTN crisis, lactic acidosis 8.3 -> 2.5-> 2.6-> 3.7 * Flu-like like illness prior to admission w/CT revealing opacification of the bilateral ethmoid sinusitis + possible community acquired PNA * Aspiration event likely during CPR/ROSC * 08/24/17 BCx on admission (+) 1/2 bottles = STAPHYLOCOCCUS SPECIES -- Possible skin contaminant ? 3. COPD w/probable obesity hyperventilation syndrome 4. Acute hypoxic respiratory failure -> 2/2 #1, #2, #3 5. Hypertensive crisis w/hx of HTN + Cardiomegaly => probable HTN heart disease 6. Pulmonary edema 7. Diabetes mellitus -> poorly controlled A1c 8.7 8. Hypothyroid ( )MRSA Nares-> pending ABX ALLERGIES: KNDA CURRENT ABX: DAY # 3 =>Vanco IV + Zosyn ID RECOMMENDATIONS 1. Continue current ABX for now -> * send sputum C&S * If BCx (+)CoNS -> then no need to repeat = consistent w/skin contaminant in obese M * If BCx (+)Staph Aureus -> will need 2D ECHO to r/o SBE 2. MRSA Nares pending 3. Will de-escalate ABX per micro results and clinical course . Problems: Consultation Date/Type/Reason Admit Date/Time Aug 24, 2017 at 07:05 Initial Consult Date Type of Consultation: ID Exam/Review of Systems Vital Signs Vitals Vital Signs Date Time Temp Pulse Resp B/P Pulse Ox O2 Delivery O2 Flow Rate FiO2 08/26/17 08:00 98.3 95 20 110/73 91 Mechanical Ventilator 08/26/17 05:23 100 08/24/17 16:00 10.0 Intake and Output 08/25/17 08/25/17 08/26/17 15:00 23:00 07:00 Intake Total 824.70 ml 1367.55 ml 1220.30 ml Output Total 255 ml 402 ml 1949 ml Balance 569.70 ml 965.55 ml -728.70 ml Results Result Diagram: 08/25/17 1842 08/26/17 0034 Results 24 hrs Laboratory Tests Test 08/25/17 09:29 08/25/17 10:39 08/25/17 11:36 08/25/17 12:00 Bedside Glucose 116 122 117 Blood Gas Specimen Source Blood arterial Arterial Blood Date Drawn 08/25/2017 12:20:29 PM Arterial Blood pH (Temp corrected) 7.540 H Arterial Blood pCO2 (Temp correct) 32.3 L Arterial Blood pO2 (Temp corrected) 52.9 *L Arterial Blood HCO3 27.7 H Arterial Blood Base Excess 4.5 H Arterial Blood Oxygen Saturation 92.8 L Kar Test ACCEPTAB Arterial Blood Gas Puncture Site Right Radial Arterial Blood Carboxyhemoglobin 0.3 Arterial Blood Methemoglobin 0.5 Blood Gas A-a O2 Differential 635.0 H Oxyhemoglobin Percent 92.1 L Total Hemoglobin 22.6 H Blood Gas Temperature 34.0 Blood Gas Respiration Rate 20.0 Blood Gas Actual Respiration Rate 20 Blood Gas Modality VENT - AC FiO2 100.0 Blood Gas Tidal Volume 600.0 Blood Gas Low PEEP Setting 5.0 Blood Gas Critical Value Read Back BROOKS PRAJAPATI R.N. Blood Gas Notified Whom RT Blood Gas Notified Time 08/25/2017 12:29:11 PM Test 08/25/17 12:11 08/25/17 12:28 08/25/17 13:41 08/25/17 14:25 White Blood Count 9.3 Red Blood Count 7.47 H Hemoglobin 20.5 H Hematocrit 66.5 H Mean Corpuscular Volume 89.0 Mean Corpuscular Hemoglobin 27.4 L Mean Corpuscular Hemoglobin Concent 30.8 L Red Cell Distribution Width 20.6 H Platelet Count 128 L Mean Platelet Volume 9.2 Neutrophils % 84.4 H Lymphocytes % 8.6 L Monocytes % 5.5 Eosinophils % 0.6 Basophils % 0.4 Nucleated Red Blood Cells % 0.4 H Neutrophils # 7.9 H Lymphocytes # 0.8 Monocytes # 0.5 Eosinophils # 0.1 Basophils # 0.0 Nucleated Red Blood Cells # 0.0 Prothrombin Time 14.3 H Prothrombin Time Ratio 1.1 INR International Normalized Ratio 1.11 Activated Partial Thromboplast Time 33.2 Fibrinogen 502.0 #H Sodium Level 139 Potassium Level 3.4 L Chloride Level 99 Carbon Dioxide Level 28 Anion Gap 15 Blood Urea Nitrogen 10 Creatinine 0.81 Glucose Level 140 Hemoglobin A1c 9.1 H Calcium Level 7.8 L Phosphorus Level 4.4 Magnesium Level 2.1 Troponin I 0.122 *H Amylase Level 64 Lipase 43 Bedside Glucose 126 123 111 Test 08/25/17 15:23 08/25/17 16:42 08/25/17 17:41 08/25/17 18:33 Bedside Glucose 103 104 99 116 Test 08/25/17 18:42 08/25/17 19:30 08/25/17 20:34 08/25/17 20:47 White Blood Count 8.3 Red Blood Count 7.18 H Hemoglobin 19.9 H Hematocrit 63.6 H Mean Corpuscular Volume 88.6 Mean Corpuscular Hemoglobin 27.7 L Mean Corpuscular Hemoglobin Concent 31.3 L Red Cell Distribution Width 20.5 H Platelet Count 105 L Mean Platelet Volume 10.9 H Neutrophils % 82.9 H Lymphocytes % 9.9 L Monocytes % 5.0 Eosinophils % 1.0 Basophils % 0.6 Nucleated Red Blood Cells % 0.2 H Neutrophils # 6.9 Lymphocytes # 0.8 Monocytes # 0.4 Eosinophils # 0.1 Basophils # 0.1 Nucleated Red Blood Cells # 0.0 Prothrombin Time 13.9 Prothrombin Time Ratio 1.1 INR International Normalized Ratio 1.07 Activated Partial Thromboplast Time 24.7 L Fibrinogen 434.0 # Sodium Level 138 Potassium Level 3.0 L Chloride Level 100 Carbon Dioxide Level 28 Anion Gap 13 Blood Urea Nitrogen 9 Creatinine 0.67 Glucose Level 210 Calcium Level 7.1 L Phosphorus Level 4.0 Magnesium Level 1.8 Troponin I 0.093 Amylase Level 74 Lipase 81 Bedside Glucose 114 131 Blood Gas Specimen Source Blood arterial Arterial Blood Date Drawn 08/25/2017 8:38:58 PM Arterial Blood pH (Temp corrected) 7.413 Arterial Blood pCO2 (Temp correct) 42.1 Arterial Blood pO2 (Temp corrected) 47.5 *L Arterial Blood HCO3 27.4 H Arterial Blood Base Excess 0.5 Arterial Blood Oxygen Saturation 88.7 L Kar Test ACCEPTAB Arterial Blood Gas Puncture Site Right Radial Arterial Blood Carboxyhemoglobin 0.3 Arterial Blood Methemoglobin 0.4 Blood Gas A-a O2 Differential 632.8 H Oxyhemoglobin Percent 88.1 L Total Hemoglobin 22.9 H Blood Gas Temperature 33.0 Blood Gas Respiration Rate 20.0 Blood Gas Actual Respiration Rate 20 Blood Gas Modality VENT - AC FiO2 100.0 Blood Gas Tidal Volume 600.0 Blood Gas Low PEEP Setting 5.0 Blood Gas Inspiratory Pressure 39.0 Blood Gas Critical Value Read Back NICKI CHUN Blood Gas Notified Whom MM Blood Gas Notified Time 08/25/2017 8:45:29 PM Test 08/25/17 21:44 08/25/17 22:43 08/25/17 23:25 08/26/17 00:34 Bedside Glucose 119 102 100 Sodium Level 138 Potassium Level 3.7 Chloride Level 99 Carbon Dioxide Level 31 Anion Gap 12 Blood Urea Nitrogen 9 Creatinine 0.80 Glucose Level 124 # Calcium Level 7.6 L Test 08/26/17 00:56 08/26/17 01:41 08/26/17 01:44 08/26/17 02:45 Bedside Glucose 116 125 111 116 Test 08/26/17 04:01 08/26/17 05:00 08/26/17 05:12 08/26/17 06:17 Bedside Glucose 107 109 110 Blood Gas Specimen Source Blood arterial Arterial Blood Date Drawn 08/26/2017 4:55:31 AM Arterial Blood pH (Temp corrected) 7.303 L Arterial Blood pCO2 (Temp correct) 49.2 H Arterial Blood pO2 (Temp corrected) 61.5 L Arterial Blood HCO3 24.1 Arterial Blood Base Excess -2.5 Arterial Blood Oxygen Saturation 89.6 L Kar Test ACCEPTAB Arterial Blood Gas Puncture Site Right Radial Arterial Blood Carboxyhemoglobin 0.4 Arterial Blood Methemoglobin 0.4 Blood Gas A-a O2 Differential 605.1 H Oxyhemoglobin Percent 88.9 L Total Hemoglobin 8.4 L Blood Gas Temperature 35.9 Blood Gas Respiration Rate 20.0 Blood Gas Actual Respiration Rate 20 Blood Gas Modality VENT - AC FiO2 100.0 Blood Gas Tidal Volume 600.0 Blood Gas Low PEEP Setting 10.0 Blood Gas Critical Value Read Back R RADHA CACERES Blood Gas Notified Whom Blood Gas Notified Time 08/26/2017 5:25:06 AM Test 08/26/17 07:31 08/26/17 08:28 08/26/17 08:29 Bedside Glucose 114 153 White Blood Count Pending Red Blood Count Pending Hemoglobin Pending Hematocrit Pending Mean Corpuscular Volume Pending Mean Corpuscular Hemoglobin Pending Mean Corpuscular Hemoglobin Concent Pending Red Cell Distribution Width Pending Platelet Count Pending Mean Platelet Volume Pending Medications Medications Current Medications Fentanyl 25 mcg 25 mcg Q10M PRN IV SEDATION; Start 08/24/17 at 07:00 Dextrose/Sodium Chloride (D5-1/2ns) 1,000 ml @ 75 mls/hr [id number] IV Last administered on 08/25/17t 23:17; Admin Dose 75 MLS/HR; Start 08/24/17 at 07:23 Flumazenil (Romazicon) 0.2 mg Q1M PRN IV BENZODIAZEPINE OVERDOSE; Start at 07:30 Naloxone HCl (Narcan) 0.4 mg Q3M PRN IV DECREASED REPIRATORY RATE; Start at 07:30 Ondansetron HCl (Zofran Inj) 4 mg Q6H PRN IV NAUSEA AND/OR VOMITING; Start 08/24/17 at 07:30 Nitroglycerin (Nitroglycerin (Sl Tab) 0.4 Mg) 1 tab Q5M PRN SL CHEST PAIN; Start 08/24/17 at 07:30 Acetaminophen (Tylenol Liquid) 650 mg Q6H PRN PO PAIN LEVEL 1-3 OR FEVER; Start 08/24/17 at 07:30 Acetaminophen (Tylenol Tab) 650 mg Q6H PRN PO PAIN LEVEL 1-3 OR FEVER; Start 08/24/17 at 07:30 Acetaminophen (Tylenol Supp) 650 mg Q4H PRN [place] PAIN LEVEL 1-3 OR FEVER; Start 08/24/17 at 07:30 Ibuprofen (Motrin) 600 mg Q6H PRN PO PAIN LEVEL 1-3 OR FEVER; Start 08/24/17 at 07:30 Acetaminophen/ Hydrocodone Bitart ([place] (5/325)) 1 tab Q6H PRN PO PAIN LEVEL 4 -6; Start 08/24/17 at 07:30 Morphine Sulfate (morphine) 2 mg Q4H PRN IV PAIN LEVEL 7-10; Start 08/24/17 at 07:30 Lorazepam (Ativan) 1 mg Q2H PRN IV ANXIETY Last administered on 08/25/17 20:05 ; Admin Dose 1 MG; Start 08/24/17 at 07:30 Docusate Sodium (Colace) 100 mg Q12H PRN PO CONSTIPATION; Start 08/24/17 at 07: 30 Magnesium Hydroxide (Milk Of Mag) 30 ml DAILY PRN PO CONSTIPATION; Start at 07:30 Bisacodyl (Dulcolax) 5 mg DAILY PRN PO CONSTIPATION; Start 08/24/17 at 07:30 Bisacodyl (Dulcolax Supp) 10 mg DAILY PRN [place] CONSTIPATION; Start 08/24/17 at 07 :30 Sodium Biphosphate/ Sodium Phosphate (Fleet Enema) 133 ml DAILY PRN [place] CONSTIPATION; Start 08/24/17 at 07:30 Eye Lubricant (Artificial Tears Oph) 1 drop TID BOTH EYES Last administered on 08/25/17 21:09; Admin Dose 1 DROP; Start 08/24/17 at 09:00 Enoxaparin Sodium 40 mg 40 mg DAILY SC Last administered on 08/26/17 08:06; Admin Dose 40 MG; Start 08/24/17 at 09:00 Piperacillin Sod/ Tazobactam Sod (Zosyn 3.375gm/ 50 ml (Pmx)) 50 ml @ 0 mls/hr Q6 IV Last administered on 08/26/17 05:36; Admin Dose 100 MLS/HR; Start at 12:00 Pantoprazole (Protonix Tab) 40 mg DAILY@06 PO Last administered on 08/26/17 05 :18; Admin Dose 40 MG; Start 08/25/17 at 06:00 Hydralazine HCl (Apresoline) 10 mg Q6H PRN IV ELEVATED BLOOD PRESSURE; Start 08/24/17 at 15:30 Levothyroxine Sodium (Synthroid) 25 mcg DAILY@06 NGT Last administered on 05:37; Admin Dose 25 MCG; Start 08/25/17 at 06:00 Acetaminophen (Tylenol Supp) 650 mg Q4H PRN [place] TEMP > 37C; Start 08/24/17 at 18 :30 Acetaminophen (Tylenol Supp) 500 mg Q6H [place] Last administered on 08/26/17 06:20 ; Admin Dose 500 MG; Start 08/25/17 at 18:30 Acetaminophen (Tylenol Liquid) 500 mg Q6H PO Last administered on 08/26/17 06: 07; Admin Dose 500 MG; Start 08/25/17 at 18:30 Meperidine HCl (Demerol) 12.5 mg Q4H PRN IV POST OPERATIVE SHIVERING; Start at 18:30 Meperidine HCl (Demerol) 25 mg Q4H PRN IV POST OPERATIVE SHIVERING; Start 08/24 at 18:30 Eye Lubricant (Akwa Oint) 1 applic Q6 BOTH EYES Last administered on 08/26/17 05:36; Admin Dose 1 APPLIC; Start 08/24/17 at 18:30 Eye Lubricant (Artificial Tears Oph) 2 drop Q6 BOTH EYES Last administered on 08/26/17 05:36; Admin Dose 2 DROP; Start 08/24/17 at 18:30 Diagnostic Test (Pha) (Accu-Chek) 1 ea Q1H XX Last administered on 08/26/17 08 :31; Admin Dose 1 EA; Start 08/24/17 at 18:30 Dextrose (D50w Syringe) 25 ml Q15M PRN IV Till BS 80 mg/dL or above x2; Start 08/24/17 at 18:30 Dextrose 50 ml 50 ml Q15M PRN IV Till BS 80 mg/dL or above x2; Start 08/24/17 at 18:30 Propofol 100 ml @ 3.75 mls/hr Q12H IV Last administered on 08/26/17 07:56; Admin Dose 3.75 MLS/HR; Start 08/24/17 at 19:30 Vecuronium [place] 100 mg/ Dextrose 100 ml @ 6.25 mls/hr TITRATE IV Last administered on 08/25/17 10:44; Admin Dose 2.5 MLS/HR; Start 08/25/17 at 10:00 Levetiracetam 100 ml @ 400 mls/hr Q12 IVPB Last administered on 08/26/17 08: 05; Admin Dose 400 MLS/HR; Start 08/25/17 at 10:00 Vancomycin HCl/ Sodium Chloride (Vancocin/NS) 250 ml @ 83.333 mls/ hr Q12H IVPB Last administered on 08/26/17 03:27; Admin Dose 83.333 MLS/HR; Start 08/26/17 at 04:00 KENNEDY CHOI NP Aug 26, 2017 09:25
--- NOTE | 2017-08-26 10:14 | RADRPT ---
PROCEDURE: XR Chest. CLINICAL INDICATION: Shortness of breath. TECHNIQUE: Single frontal view. COMPARISON: 08/25/2017. FINDINGS: The endotracheal tube and nasogastric tube remain in satisfactory position. There is mild pulmonary edema, slightly improved. The heart is enlarged. There are small bilateral pleural effusions. There is no pneumothorax. IMPRESSION: 1. Mild pulmonary edema, slightly improved. 2. No other change from the 08/25/2017 chest radiograph. RPTAT: QQ .Niels Stanton MD, Date Time Electronically viewed and signed by .Niels Stanton MD, on 08/26/2017 10:14 .R/
[2017-08-26 10:42] LABS: ABNORMAL IP MESSAGE 1; BASOPHILS % 0.3 % (0.0-2.0); EOSINOPHILS % 0.3 % (0.0-7.0); HEMATOCRIT 62.2 % (42.0-52.0); HEMOGLOBIN 19.2 g/dl (14.0-18.0); LYMPHOCYTES # 0.5 10^3/ul (0.8-2.9); LYMPHOCYTES % 4.5 % (15.0-51.0); MEAN CORPUSCULAR HEMOGLOBIN 27.7 pg (29.0-33.0); MEAN CORPUSCULAR HGB CONC 30.9 g/dl (32.0-37.0); MEAN CORPUSCULAR VOLUME 89.8 fl (82.0-101.0); MEAN PLATELET VOLUME 9.6 fl (7.4-10.4); MONOCYTE # 0.4 10^3/ul (0.3-0.9); MONOCYTES % 3.4 % (0.0-11.0); NEUTROPHIL # 10.5 10^3/ul (1.6-7.5); NUCLEATED RED BLOOD CELLS% 0.3 /100WBC (0.0-0.0); POSITIVE DIFF @See below; RED BLOOD COUNT 6.93 10^6/ul (4.70-6.10); RED CELL DISTRIBUTION WIDTH 20.6 % (11.5-14.5); WHITE BLOOD COUNT 11.6 10^3/ul (4.8-10.8)
[2017-08-26 10:44] LABS: PLATELET COUNT 129 10^3/UL (140-415)
[2017-08-26] MEDS: DEXTROSE 5%-0.45% NACL 1,000 ML IV SCH (12:10)
--- NOTE | 2017-08-26 12:13 | CONS ---
Date/Time of Note Date/Time of Note DATE: 08/26/17 TIME: 12:11 Assessment/Plan Assessment/Plan Additional Assessment/Plan PEA arrest Respiratory failure Hypertension Anoxic Encephalopathy. Hypothyroidism. Seizures Bacteremia Diabetes Hypothyroidism Hemodynamically stable not on Vasopressors Continue Vent support Continue Antibiotics Continue Insulin drip Continue Synthroid Continue Keppra Continue GI and DVT Prophylaxis Aggressive pulmonary toiletry Replete Potassium Consultation Date/Type/Reason Admit Date/Time Aug 24, 2017 at 07:05 Initial Consult Date Type of Consultation: ID Exam/Review of Systems Vital Signs Vitals Vital Signs Date Time Temp Pulse Resp B/P Pulse Ox O2 Delivery O2 Flow Rate FiO2 08/26/17 11:30 99.3 101 23 81/55 90 08/26/17 11:00 Mechanical Ventilator 08/26/17 10:51 100 08/24/17 16:00 10.0 Intake and Output 08/25/17 08/25/17 08/26/17 15:00 23:00 07:00 Intake Total 824.70 ml 1367.55 ml 1220.30 ml Output Total 255 ml 402 ml 1949 ml Balance 569.70 ml 965.55 ml -728.70 ml Exam Gen Intubated on sedated HEENT NAD CVS RRR, No m/r/g Chest Mechanical breath sounds heard bilaterally Abdomen Soft BS heard Ext Trace pedal edema Constitutional: non-verbal Results Result Diagram: 08/26/1728 08/26/17 0828 Results 24 hrs Laboratory Tests Test 08/25/17 12:28 08/25/17 13:41 08/25/17 14:25 08/25/17 15:23 Bedside Glucose 126 123 111 103 Test 08/25/17 16:42 08/25/17 17:41 08/25/17 18:33 08/25/17 18:42 Bedside Glucose 104 99 116 White Blood Count 8.3 Red Blood Count 7.18 H Hemoglobin 19.9 H Hematocrit 63.6 H Mean Corpuscular Volume 88.6 Mean Corpuscular Hemoglobin 27.7 L Mean Corpuscular Hemoglobin Concent 31.3 L Red Cell Distribution Width 20.5 H Platelet Count 105 L Mean Platelet Volume 10.9 H Neutrophils % 82.9 H Lymphocytes % 9.9 L Monocytes % 5.0 Eosinophils % 1.0 Basophils % 0.6 Nucleated Red Blood Cells % 0.2 H Neutrophils # 6.9 Lymphocytes # 0.8 Monocytes # 0.4 Eosinophils # 0.1 Basophils # 0.1 Nucleated Red Blood Cells # 0.0 Prothrombin Time 13.9 Prothrombin Time Ratio 1.1 INR International Normalized Ratio 1.07 Activated Partial Thromboplast Time 24.7 L Fibrinogen 434.0 # Sodium Level 138 Potassium Level 3.0 L Chloride Level 100 Carbon Dioxide Level 28 Anion Gap 13 Blood Urea Nitrogen 9 Creatinine 0.67 Glucose Level 210 Calcium Level 7.1 L Phosphorus Level 4.0 Magnesium Level 1.8 Troponin I 0.093 Amylase Level 74 Lipase 81 Test 08/25/17 19:30 08/25/17 20:34 08/25/17 20:47 08/25/17 21:44 Bedside Glucose 114 131 119 Blood Gas Specimen Source Blood arterial Arterial Blood Date Drawn 08/25/2017 8:38:58 PM Arterial Blood pH (Temp corrected) 7.413 Arterial Blood pCO2 (Temp correct) 42.1 Arterial Blood pO2 (Temp corrected) 47.5 *L Arterial Blood HCO3 27.4 H Arterial Blood Base Excess 0.5 Arterial Blood Oxygen Saturation 88.7 L Kar Test ACCEPTAB Arterial Blood Gas Puncture Site Right Radial Arterial Blood Carboxyhemoglobin 0.3 Arterial Blood Methemoglobin 0.4 Blood Gas A-a O2 Differential 632.8 H Oxyhemoglobin Percent 88.1 L Total Hemoglobin 22.9 H Blood Gas Temperature 33.0 Blood Gas Respiration Rate 20.0 Blood Gas Actual Respiration Rate 20 Blood Gas Modality VENT - AC FiO2 100.0 Blood Gas Tidal Volume 600.0 Blood Gas Low PEEP Setting 5.0 Blood Gas Inspiratory Pressure 39.0 Blood Gas Critical Value Read Back NICKI CHUN Blood Gas Notified Whom MM Blood Gas Notified Time 08/25/2017 8:45:29 PM Test 08/25/17 22:43 08/25/17 23:25 08/26/17 00:34 08/26/17 00:56 Bedside Glucose 102 100 116 Sodium Level 138 Potassium Level 3.7 Chloride Level 99 Carbon Dioxide Level 31 Anion Gap 12 Blood Urea Nitrogen 9 Creatinine 0.80 Glucose Level 124 # Calcium Level 7.6 L Test 08/26/17 01:41 08/26/17 01:44 08/26/17 02:45 08/26/17 04:01 Bedside Glucose 125 111 116 107 Test 08/26/17 05:00 08/26/17 05:12 08/26/17 06:17 08/26/17 07:31 Blood Gas Specimen Source Blood arterial Arterial Blood Date Drawn 08/26/2017 4:55:31 AM Arterial Blood pH (Temp corrected) 7.303 L Arterial Blood pCO2 (Temp correct) 49.2 H Arterial Blood pO2 (Temp corrected) 61.5 L Arterial Blood HCO3 24.1 Arterial Blood Base Excess -2.5 Arterial Blood Oxygen Saturation 89.6 L Kar Test ACCEPTAB Arterial Blood Gas Puncture Site Right Radial Arterial Blood Carboxyhemoglobin 0.4 Arterial Blood Methemoglobin 0.4 Blood Gas A-a O2 Differential 605.1 H Oxyhemoglobin Percent 88.9 L Total Hemoglobin 8.4 L Blood Gas Temperature 35.9 Blood Gas Respiration Rate 20.0 Blood Gas Actual Respiration Rate 20 Blood Gas Modality VENT - AC FiO2 100.0 Blood Gas Tidal Volume 600.0 Blood Gas Low PEEP Setting 10.0 Blood Gas Critical Value Read Back R RADHA CACERES Blood Gas Notified Whom Blood Gas Notified Time 08/26/2017 5:25:06 AM Bedside Glucose 109 110 114 Test 08/26/17 08:28 08/26/17 08:29 08/26/17 09:50 08/26/17 10:45 White Blood Count 11.6 #H Red Blood Count 6.93 H Hemoglobin 19.2 H Hematocrit 62.2 H Mean Corpuscular Volume 89.8 Mean Corpuscular Hemoglobin 27.7 L Mean Corpuscular Hemoglobin Concent 30.9 L Red Cell Distribution Width 20.6 H Platelet Count 129 #L Mean Platelet Volume 9.6 Neutrophils % 91.0 H Lymphocytes % 4.5 L Monocytes % 3.4 Eosinophils % 0.3 Basophils % 0.3 Nucleated Red Blood Cells % 0.3 H Neutrophils # 10.5 H Lymphocytes # 0.5 L Monocytes # 0.4 Eosinophils # 0.0 Basophils # 0.0 Nucleated Red Blood Cells # 0.0 Sodium Level 138 Potassium Level 3.7 Chloride Level 99 Carbon Dioxide Level 29 Anion Gap 14 Blood Urea Nitrogen 9 Creatinine 0.85 Glucose Level 151 Lactic Acid Level 3.0 *H Calcium Level 7.6 L Bedside Glucose 153 141 131 Test 08/26/17 11:43 Bedside Glucose 104 Medications Medications Current Medications Fentanyl 25 mcg 25 mcg Q10M PRN IV SEDATION; Start 08/24/17 at 07:00 Dextrose/Sodium Chloride (D5-1/2ns) 1,000 ml @ 75 mls/hr [id number] IV Last administered on 08/25/17 23:17; Admin Dose 75 MLS/HR; Start 08/24/17 at 07:23 Flumazenil (Romazicon) 0.2 mg Q1M PRN IV BENZODIAZEPINE OVERDOSE; Start at 07:30 Naloxone HCl (Narcan) 0.4 mg Q3M PRN IV DECREASED REPIRATORY RATE; Start at 07:30 Ondansetron HCl (Zofran Inj) 4 mg Q6H PRN IV NAUSEA AND/OR VOMITING; Start 08/24/17 at 07:30 Nitroglycerin (Nitroglycerin (Sl Tab) 0.4 Mg) 1 tab Q5M PRN SL CHEST PAIN; Start 08/24/17 at 07:30 Acetaminophen (Tylenol Liquid) 650 mg Q6H PRN PO PAIN LEVEL 1-3 OR FEVER; Start 08/24/17 at 07:30 Acetaminophen (Tylenol Tab) 650 mg Q6H PRN PO PAIN LEVEL 1-3 OR FEVER; Start 08/24/17 at 07:30 Acetaminophen (Tylenol Supp) [address] PAIN LEVEL 1-3 OR FEVER; Start 08/24/17 at 07:30 Ibuprofen (Motrin) 600 mg Q6H PRN PO PAIN LEVEL 1-3 OR FEVER; Start 08/24/17 at 07:30 Acetaminophen/ Hydrocodone Bitart ([place] (5/325)) 1 tab Q6H PRN PO PAIN LEVEL 4 -6; Start 08/24/17 at 07:30 Morphine Sulfate (morphine) 2 mg Q4H PRN IV PAIN LEVEL 7-10; Start 08/24/17 at 07:30 Lorazepam (Ativan) 1 mg Q2H PRN IV ANXIETY Last administered on 08/26/17 09:48 ; Admin Dose 1 MG; Start 08/24/17 at 07:30 Docusate Sodium (Colace) 100 mg Q12H PRN PO CONSTIPATION; Start 08/24/17 at 07: 30 Magnesium Hydroxide (Milk Of Mag) 30 ml DAILY PRN PO CONSTIPATION; Start at 07:30 Bisacodyl (Dulcolax) 5 mg DAILY PRN PO CONSTIPATION; Start 08/24/17 at 07:30 Bisacodyl (Dulcolax Supp) [address] CONSTIPATION; Start 08/24/17 at 07 :30 Sodium Biphosphate/ Sodium Phosphate (Fleet Enema) [address] CONSTIPATION; Start 08/24/17 at 07:30 Eye Lubricant (Artificial Tears Oph) 1 drop TID BOTH EYES Last administered on 08/26/17 09:50; Admin Dose 1 DROP; Start 08/24/17 at 09:00 Enoxaparin Sodium 40 mg 40 mg DAILY SC Last administered on 08/26/17 08:06; Admin Dose 40 MG; Start 08/24/17 at 09:00 Piperacillin Sod/ Tazobactam Sod (Zosyn 3.375gm/ 50 ml (Pmx)) 50 ml @ 0 mls/hr Q6 IV Last administered on 08/26/17 05:36; Admin Dose 100 MLS/HR; Start at 12:00 Pantoprazole (Protonix Tab) 40 mg DAILY@06 PO Last administered on 08/26/17 05 :18; Admin Dose 40 MG; Start 08/25/17 at 06:00 Hydralazine HCl (Apresoline) 10 mg Q6H PRN IV ELEVATED BLOOD PRESSURE; Start 08/24/17 at 15:30 Levothyroxine Sodium (Synthroid) 25 mcg DAILY@06 NGT Last administered on 05:37; Admin Dose 25 MCG; Start 08/25/17 at 06:00 Acetaminophen (Tylenol Supp) [address] TEMP > 37C; Start 08/24/17 at 18 :30 Acetaminophen (Tylenol Supp) [address] Last administered on 08/26/17 06:20 ; Admin Dose 500 MG; Start 08/25/17 at 18:30 Acetaminophen (Tylenol Liquid) 500 mg Q6H PO Last administered on 08/26/17 06: 07; Admin Dose 500 MG; Start 08/25/17 at 18:30 Meperidine HCl (Demerol) 12.5 mg Q4H PRN IV POST OPERATIVE SHIVERING; Start at 18:30 Meperidine HCl (Demerol) 25 mg Q4H PRN IV POST OPERATIVE SHIVERING; Start 08/24 at 18:30 Eye Lubricant (Akwa Oint) 1 applic Q6 BOTH EYES Last administered on 08/26/17 12:06; Admin Dose 1 APPLIC; Start 08/24/17 at 18:30 Eye Lubricant (Artificial Tears Oph) 2 drop Q6 BOTH EYES Last administered on 08/26/17 12:06; Admin Dose 2 DROP; Start 08/24/17 at 18:30 Diagnostic Test (Pha) (Accu-Chek) 1 ea Q1H XX Last administered on 08/26/17 11 :44; Admin Dose 1 EA; Start 08/24/17 at 18:30 Dextrose (D50w Syringe) 25 ml Q15M PRN IV Till BS 80 mg/dL or above x2; Start 08/24/17 at 18:30 Dextrose 50 ml 50 ml Q15M PRN IV Till BS 80 mg/dL or above x2; Start 08/24/17 at 18:30 Propofol 100 ml @ 3.75 mls/hr Q12H IV Last administered on 08/26/17 12:06; Admin Dose 22.5 MLS/HR; Start 08/24/17 at 19:30 Vecuronium [place] 100 mg/ Dextrose 100 ml @ 6.25 mls/hr TITRATE IV Last administered on 08/25/17 10:44; Admin Dose 2.5 MLS/HR; Start 08/25/17 at 10:00 Levetiracetam 100 ml @ 400 mls/hr Q12 IVPB Last administered on 08/26/17 08: 05; Admin Dose 400 MLS/HR; Start 08/25/17 at 10:00 Vancomycin HCl/ Sodium Chloride (Vancocin/NS) 250 ml @ 83.333 mls/ hr Q12H IVPB Last administered on 08/26/17 03:27; Admin Dose 83.333 MLS/HR; Start 08/26/17 at 04:00 Miscellaneous Information (*Rx Drug Level Order Reminder*) VANCOMYCIN TROUGH AT 0300 ONCE ONCE XX ; Start 08/27/17 at 03:00; Stop 08/27/17 at 03:01 APOLLO RIOS M.D. Aug 26, 2017 12:13
[2017-08-26] MEDS ORDERED: POTASSIUM CHLORIDE 250 ML IVPB ONE (12:30)
--- NOTE | 2017-08-26 12:58 | CONS ---
Date/Time of Note Date/Time of Note DATE: 08/26/17 TIME: 12:55 Consult Date/Type/Reason Admit Date/Time Aug 24, 2017 at 07:05 Type of Consultation: Pulm/CCM Subjective Just coming off the hypothermia protocol. Unresponsive on propofol gtt. Objective Vital Signs Date Time Temp Pulse Resp B/P Pulse Ox O2 Delivery O2 Flow Rate FiO2 08/26/17 12:15 99 23 96/60 90 08/26/17 12:00 Mechanical Ventilator 08/26/17 11:30 99.3 08/26/17 10:51 100 08/24/17 16:00 10.0 Intake and Output 08/25/17 08/25/17 08/26/17 15:00 23:00 07:00 Intake Total 824.70 ml 1367.55 ml 1220.30 ml Output Total 255 ml 402 ml 1949 ml Balance 569.70 ml 965.55 ml -728.70 ml Exam CARDIAC: S1, S2, no added sounds or murmurs. CHEST: Diminished air entry bilaterally. ABDOMEN: Soft, obese, nontender, no guarding or rebound. EXTREMITIES: No cyanosis, clubbing, edema. NEUROLOGIC: Unable to assess. Results/Medications Result Diagram: 08/26/1782708/26/17827 Results 24 hrs Laboratory Tests Test 08/25/17 13:41 08/25/17 14:25 08/25/17 15:23 08/25/17 16:42 Bedside Glucose 123 111 103 104 Test 08/25/17 17:41 08/25/17 18:33 08/25/17 18:42 08/25/17 19:30 Bedside Glucose 99 116 114 White Blood Count 8.3 Red Blood Count 7.18 H Hemoglobin 19.9 H Hematocrit 63.6 H Mean Corpuscular Volume 88.6 Mean Corpuscular Hemoglobin 27.7 L Mean Corpuscular Hemoglobin Concent 31.3 L Red Cell Distribution Width 20.5 H Platelet Count 105 L Mean Platelet Volume 10.9 H Neutrophils % 82.9 H Lymphocytes % 9.9 L Monocytes % 5.0 Eosinophils % 1.0 Basophils % 0.6 Nucleated Red Blood Cells % 0.2 H Neutrophils # 6.9 Lymphocytes # 0.8 Monocytes # 0.4 Eosinophils # 0.1 Basophils # 0.1 Nucleated Red Blood Cells # 0.0 Prothrombin Time 13.9 Prothrombin Time Ratio 1.1 INR International Normalized Ratio 1.07 Activated Partial Thromboplast Time 24.7 L Fibrinogen 434.0 # Sodium Level 138 Potassium Level 3.0 L Chloride Level 100 Carbon Dioxide Level 28 Anion Gap 13 Blood Urea Nitrogen 9 Creatinine 0.67 Glucose Level 210 Calcium Level 7.1 L Phosphorus Level 4.0 Magnesium Level 1.8 Troponin I 0.093 Amylase Level 74 Lipase 81 Test 08/25/17 20:34 08/25/17 20:47 08/25/17 21:44 08/25/17 22:43 Blood Gas Specimen Source Blood arterial Arterial Blood Date Drawn 08/25/2017 8:38:58 PM Arterial Blood pH (Temp corrected) 7.413 Arterial Blood pCO2 (Temp correct) 42.1 Arterial Blood pO2 (Temp corrected) 47.5 *L Arterial Blood HCO3 27.4 H Arterial Blood Base Excess 0.5 Arterial Blood Oxygen Saturation 88.7 L Kar Test ACCEPTAB Arterial Blood Gas Puncture Site Right Radial Arterial Blood Carboxyhemoglobin 0.3 Arterial Blood Methemoglobin 0.4 Blood Gas A-a O2 Differential 632.8 H Oxyhemoglobin Percent 88.1 L Total Hemoglobin 22.9 H Blood Gas Temperature 33.0 Blood Gas Respiration Rate 20.0 Blood Gas Actual Respiration Rate 20 Blood Gas Modality VENT - AC FiO2 100.0 Blood Gas Tidal Volume 600.0 Blood Gas Low PEEP Setting 5.0 Blood Gas Inspiratory Pressure 39.0 Blood Gas Critical Value Read Back NICKI CHUN Blood Gas Notified Whom MM Blood Gas Notified Time 08/25/2017 8:45:29 PM Bedside Glucose 131 119 102 Test 08/25/17 23:25 08/26/17 00:34 08/26/17 00:56 08/26/17 01:41 Bedside Glucose 100 116 125 Sodium Level 138 Potassium Level 3.7 Chloride Level 99 Carbon Dioxide Level 31 Anion Gap 12 Blood Urea Nitrogen 9 Creatinine 0.80 Glucose Level 124 # Calcium Level 7.6 L Test 08/26/17 01:44 08/26/17 02:45 08/26/17 04:01 08/26/17 05:00 Bedside Glucose 111 116 107 Blood Gas Specimen Source Blood arterial Arterial Blood Date Drawn 08/26/2017 4:55:31 AM Arterial Blood pH (Temp corrected) 7.303 L Arterial Blood pCO2 (Temp correct) 49.2 H Arterial Blood pO2 (Temp corrected) 61.5 L Arterial Blood HCO3 24.1 Arterial Blood Base Excess -2.5 Arterial Blood Oxygen Saturation 89.6 L Kar Test ACCEPTAB Arterial Blood Gas Puncture Site Right Radial Arterial Blood Carboxyhemoglobin 0.4 Arterial Blood Methemoglobin 0.4 Blood Gas A-a O2 Differential 605.1 H Oxyhemoglobin Percent 88.9 L Total Hemoglobin 8.4 L Blood Gas Temperature 35.9 Blood Gas Respiration Rate 20.0 Blood Gas Actual Respiration Rate 20 Blood Gas Modality VENT - AC FiO2 100.0 Blood Gas Tidal Volume 600.0 Blood Gas Low PEEP Setting 10.0 Blood Gas Critical Value Read Back R RADHA CACERES Blood Gas Notified Whom Blood Gas Notified Time 08/26/2017 5:25:06 AM Test 08/26/17 05:12 08/26/17 06:17 08/26/17 07:31 08/26/17 08:28 Bedside Glucose 109 110 114 White Blood Count 11.6 #H Red Blood Count 6.93 H Hemoglobin 19.2 H Hematocrit 62.2 H Mean Corpuscular Volume 89.8 Mean Corpuscular Hemoglobin 27.7 L Mean Corpuscular Hemoglobin Concent 30.9 L Red Cell Distribution Width 20.6 H Platelet Count 129 #L Mean Platelet Volume 9.6 Neutrophils % 91.0 H Lymphocytes % 4.5 L Monocytes % 3.4 Eosinophils % 0.3 Basophils % 0.3 Nucleated Red Blood Cells % 0.3 H Neutrophils # 10.5 H Lymphocytes # 0.5 L Monocytes # 0.4 Eosinophils # 0.0 Basophils # 0.0 Nucleated Red Blood Cells # 0.0 Sodium Level 138 Potassium Level 3.7 Chloride Level 99 Carbon Dioxide Level 29 Anion Gap 14 Blood Urea Nitrogen 9 Creatinine 0.85 Glucose Level 151 Lactic Acid Level 3.0 *H Calcium Level 7.6 L Test 08/26/17 08:29 08/26/17 09:50 08/26/17 10:45 08/26/17 11:43 Bedside Glucose 153 141 131 104 Test 08/26/17 12:50 Bedside Glucose 101 Medications Current Medications Fentanyl 25 mcg 25 mcg Q10M PRN IV SEDATION; Start 08/24/17 at 07:00 Dextrose/Sodium Chloride (D5-1/2ns) 1,000 ml @ 75 mls/hr [id number] IV Last administered on 08/26/17 12:10; Admin Dose 75 MLS/HR; Start 08/24/17 at 07:23 Flumazenil (Romazicon) 0.2 mg Q1M PRN IV BENZODIAZEPINE OVERDOSE; Start at 07:30 Naloxone HCl (Narcan) 0.4 mg Q3M PRN IV DECREASED REPIRATORY RATE; Start at 07:30 Ondansetron HCl (Zofran Inj) 4 mg Q6H PRN IV NAUSEA AND/OR VOMITING; Start 08/24/17 at 07:30 Nitroglycerin (Nitroglycerin (Sl Tab) 0.4 Mg) 1 tab Q5M PRN SL CHEST PAIN; Start 08/24/17 at 07:30 Acetaminophen (Tylenol Liquid) 650 mg Q6H PRN PO PAIN LEVEL 1-3 OR FEVER; Start 08/24/17 at 07:30 Acetaminophen (Tylenol Tab) 650 mg Q6H PRN PO PAIN LEVEL 1-3 OR FEVER; Start 08/24/17 at 07:30 Acetaminophen (Tylenol Supp) 650 mg Q4H PRN [place] PAIN LEVEL 1-3 OR FEVER; Start 08/24/17 at 07:30 Ibuprofen (Motrin) 600 mg Q6H PRN PO PAIN LEVEL 1-3 OR FEVER; Start 08/24/17 at 07:30 Acetaminophen/ Hydrocodone Bitart ([place] (5/325)) 1 tab Q6H PRN PO PAIN LEVEL 4 -6; Start 08/24/17 at 07:30 Morphine Sulfate (morphine) 2 mg Q4H PRN IV PAIN LEVEL 7-10; Start 08/24/17 at 07:30 Lorazepam (Ativan) 1 mg Q2H PRN IV ANXIETY Last administered on 08/26/17 09:48 ; Admin Dose 1 MG; Start 08/24/17 at 07:30 Docusate Sodium (Colace) 100 mg Q12H PRN PO CONSTIPATION; Start 08/24/17 at 07: 30 Magnesium Hydroxide (Milk Of Mag) 30 ml DAILY PRN PO CONSTIPATION; Start at 07:30 Bisacodyl (Dulcolax) 5 mg DAILY PRN PO CONSTIPATION; Start 08/24/17 at 07:30 Bisacodyl (Dulcolax Supp) 10 mg DAILY PRN PA CONSTIPATION; Start 08/24/17 at 07 :30 Sodium Biphosphate/ Sodium Phosphate (Fleet Enema) 133 ml DAILY PRN PA CONSTIPATION; Start 08/24/17 at 07:30 Eye Lubricant (Artificial Tears Oph) 1 drop TID BOTH EYES Last administered on 08/26/17 12:49; Admin Dose 1 DROP; Start 08/24/17 at 09:00 Enoxaparin Sodium 40 mg 40 mg DAILY SC Last administered on 08/26/17 08:06; Admin Dose 40 MG; Start 08/24/17 at 09:00 Piperacillin Sod/ Tazobactam Sod (Zosyn 3.375gm/ 50 ml (Pmx)) 50 ml @ 0 mls/hr Q6 IV Last administered on 08/26/17 12:12; Admin Dose 100 MLS/HR; Start at 12:00 Pantoprazole (Protonix Tab) 40 mg DAILY@06 PO Last administered on 08/26/17 05 :18; Admin Dose 40 MG; Start 08/25/17 at 06:00 Hydralazine HCl (Apresoline) 10 mg Q6H PRN IV ELEVATED BLOOD PRESSURE; Start 08/24/17 at 15:30 Levothyroxine Sodium (Synthroid) 25 mcg DAILY@06 NGT Last administered on 05:37; Admin Dose 25 MCG; Start 08/25/17 at 06:00 Acetaminophen (Tylenol Supp) 650 mg Q4H PRN PA TEMP > 37C; Start 08/24/17 at 18 :30 Acetaminophen (Tylenol Supp) 500 mg Q6H PA Last administered on 08/26/17 12:53 ; Admin Dose 500 MG; Start 08/25/17 at 18:30 Acetaminophen (Tylenol Liquid) 500 mg Q6H PO Last administered on 08/26/17 12: 10; Admin Dose 500 MG; Start 08/25/17 at 18:30 Meperidine HCl (Demerol) 12.5 mg Q4H PRN IV POST OPERATIVE SHIVERING; Start at 18:30 Meperidine HCl (Demerol) 25 mg Q4H PRN IV POST OPERATIVE SHIVERING; Start 08/24 at 18:30 Eye Lubricant (Akwa Oint) 1 applic Q6 BOTH EYES Last administered on 08/26/17 12:06; Admin Dose 1 APPLIC; Start 08/24/17 at 18:30 Eye Lubricant (Artificial Tears Oph) 2 drop Q6 BOTH EYES Last administered on 08/26/17 12:06; Admin Dose 2 DROP; Start 08/24/17 at 18:30 Diagnostic Test (Pha) (Accu-Chek) 1 ea Q1H XX Last administered on 08/26/17 12 :53; Admin Dose 1 EA; Start 08/24/17 at 18:30 Dextrose (D50w Syringe) 25 ml Q15M PRN IV Till BS 80 mg/dL or above x2; Start 08/24/17 at 18:30 Dextrose 50 ml 50 ml Q15M PRN IV Till BS 80 mg/dL or above x2; Start 08/24/17 at 18:30 Propofol 100 ml @ 3.75 mls/hr Q12H IV Last administered on 08/26/17 12:06; Admin Dose 22.5 MLS/HR; Start 08/24/17 at 19:30 Vecuronium [place] 100 mg/ Dextrose 100 ml @ 6.25 mls/hr TITRATE IV Last administered on 08/25/17 10:44; Admin Dose 2.5 MLS/HR; Start 08/25/17 at 10:00 Levetiracetam 100 ml @ 400 mls/hr Q12 IVPB Last administered on 08/26/17 08: 05; Admin Dose 400 MLS/HR; Start 08/25/17 at 10:00 Vancomycin HCl/ Sodium Chloride (Vancocin/NS) 250 ml @ 83.333 mls/ hr Q12H IVPB Last administered on 08/26/17 03:27; Admin Dose 83.333 MLS/HR; Start 08/26/17 at 04:00 Miscellaneous Information VANCOMYCIN TROUGH 08/27 AT 0300 ONCE ONCE XX ; Start 08/27/17 at 03:00; Stop 08/27/17 at 03:01 Potassium Chloride 250 ml @ 62.5 mls/hr ONCE ONCE IVPB Last administered on 08/26/17 12:48; Admin Dose 62.5 MLS/HR; Start 08/26/17 at 12:30; Stop 08/26/17 at 16:29 Norepinephrine/ Dextrose (Levophed/D5W) 500 ml @ 1.87 mls/hr TITRATE IV ; Start 08/26/17 at 13:30 Assessment/Plan Additional Assessment/Plan IMP: 1. s/p Cardiopulmonary arrest--likely due to aspiration and central airway obstruction 2. Seizure Disorder 3. Gram + bacteremia--likely contaminant 4. Possible anoxic brain injury 5. CAP vs. aspiration 6. Morbid obesity 7. DM RECS: 1. Transitioning off hypothermia protocol 2. Anti-epileptic Rx and propofol gtt 3. Vent support 4. Abx 5. F/U Cx's 6. DVT and GI prophylaxis 7. EEG today 8. Prognosis is poor 35 min cc time JULY GRANGER MD Aug 26, 2017 12:58
[2017-08-26] MEDS ORDERED: NORepinephrine 8MG/250 ML (PMX 250 ML ONE (13:04)
[2017-08-26 14:15] LABS: AADO2 Arterial 625.6 mmHg (7.0-24.0); Allen Test ACCEPTAB; Arterial Base Excess 2.2 mmol/L (-3.0-3); Arterial COHb 0.1 % (0.0-3.0); Arterial Fraction of Oxyhgb 81.7 % (93.0-99.0); Arterial HCO3 26.3 mmol/L (22.0-26.0); Arterial MetHb 0.4 % (0.0-1.5); Arterial Total Hemglobin 21.6 g/dl (12.0-18.0); MODE VENT - AC
--- NOTE | 2017-08-26 14:58 | RADRPT ---
PROCEDURE: XR Chest. CLINICAL INDICATION: Shortness of breath. TECHNIQUE: Single frontal view. COMPARISON: 08/26/2017. 0654 hours. FINDINGS: The endotracheal tube should be advanced approximately 3 cm as the tip is at the level of the upper clavicle heads and is approximately 6.5 cm above the neville. There is atelectasis at the lung bases with right worse than left. Pulmonary edema is unchanged. The lungs are otherwise clear. The heart is enlarged. There are small bilateral pleural effusions. There is no pneumothorax. IMPRESSION: 1. The endotracheal tube should be advanced approximately 3 cm. 2. Atelectasis at the lung bases with right worse than left. 3. Unchanged pulmonary edema. 4. Cardiomegaly. 5. Small bilateral pleural effusions. 6. Otherwise unchanged from the prior chest radiograph. RPTAT: QQ .Niels Stanton MD, Date Time Electronically viewed and signed by .Niels Stanton MD, on 08/26/2017 14:57 .R/
--- NOTE | 2017-08-26 15:29 | PN ---
Date/Time of Note Date/Time of Note DATE: 08/26/17 TIME: 15:27 Assessment/Plan VTE Prophylaxis VTE Prophylaxis Intervention: other Lines/Catheters IV Catheter Type (from Nrs): Central Line Central line still needed: Yes Urinary Cath still in place: Yes Reason Cath still needed: other (indicate) Assessment/Plan Chief Complaint/Hosp Course 1. s/p cardiac arrest 2. Sepsis with Gram + bacteremia 3. Morbid obesity 4. Hypertension hx 5. history of flu like sickness before admission 6. Anemia 7. Seizure Disorder 8. Possible anoxic brain injury. 7. Underlying diabetes mellitus. 8 obesity plan antibiotic per pull and cardio Problems: Subjective 24 Hr Interval Summary Subjective hx not possible: other (d/w pt fiance) Exam/Review of Systems Vital Signs Vitals Vital Signs Date Time Temp Pulse Resp B/P Pulse Ox O2 Delivery O2 Flow Rate FiO2 08/26/17 14:30 103 26 90/62 86 Mechanical Ventilator 08/26/17 13:27 100 08/26/17 11:30 99.3 08/24/17 16:00 10.0 Intake and Output 08/25/17 08/25/17 08/26/17 15:00 23:00 07:00 Intake Total 824.70 ml 1367.55 ml 1220.30 ml Output Total 255 ml 402 ml 1949 ml Balance 569.70 ml 965.55 ml -728.70 ml Exam Respiratory: diminished breath sounds Cardiovascular: regular rate and rhythm Gastrointestinal: bowel sounds (+), non-tender, soft Extremities: normal pulses Neurological: unresponsive Results Result Diagram: 08/26/1728 08/26/1728 Results 24 hrs Laboratory Tests Test 08/25/17 16:42 08/25/17 17:41 08/25/17 18:33 08/25/17 18:42 Bedside Glucose 104 99 116 White Blood Count 8.3 Red Blood Count 7.18 H Hemoglobin 19.9 H Hematocrit 63.6 H Mean Corpuscular Volume 88.6 Mean Corpuscular Hemoglobin 27.7 L Mean Corpuscular Hemoglobin Concent 31.3 L Red Cell Distribution Width 20.5 H Platelet Count 105 L Mean Platelet Volume 10.9 H Neutrophils % 82.9 H Lymphocytes % 9.9 L Monocytes % 5.0 Eosinophils % 1.0 Basophils % 0.6 Nucleated Red Blood Cells % 0.2 H Neutrophils # 6.9 Lymphocytes # 0.8 Monocytes # 0.4 Eosinophils # 0.1 Basophils # 0.1 Nucleated Red Blood Cells # 0.0 Prothrombin Time 13.9 Prothrombin Time Ratio 1.1 INR International Normalized Ratio 1.07 Activated Partial Thromboplast Time 24.7 L Fibrinogen 434.0 # Sodium Level 138 Potassium Level 3.0 L Chloride Level 100 Carbon Dioxide Level 28 Anion Gap 13 Blood Urea Nitrogen 9 Creatinine 0.67 Glucose Level 210 Calcium Level 7.1 L Phosphorus Level 4.0 Magnesium Level 1.8 Troponin I 0.093 Amylase Level 74 Lipase 81 Test 08/25/17 19:30 08/25/17 20:34 08/25/17 20:47 08/25/17 21:44 Bedside Glucose 114 131 119 Blood Gas Specimen Source Blood arterial Arterial Blood Date Drawn 08/25/2017 8:38:58 PM Arterial Blood pH (Temp corrected) 7.413 Arterial Blood pCO2 (Temp correct) 42.1 Arterial Blood pO2 (Temp corrected) 47.5 *L Arterial Blood HCO3 27.4 H Arterial Blood Base Excess 0.5 Arterial Blood Oxygen Saturation 88.7 L Kar Test ACCEPTAB Arterial Blood Gas Puncture Site Right Radial Arterial Blood Carboxyhemoglobin 0.3 Arterial Blood Methemoglobin 0.4 Blood Gas A-a O2 Differential 632.8 H Oxyhemoglobin Percent 88.1 L Total Hemoglobin 22.9 H Blood Gas Temperature 33.0 Blood Gas Respiration Rate 20.0 Blood Gas Actual Respiration Rate 20 Blood Gas Modality VENT - AC FiO2 100.0 Blood Gas Tidal Volume 600.0 Blood Gas Low PEEP Setting 5.0 Blood Gas Inspiratory Pressure 39.0 Blood Gas Critical Value Read Back NICKI CHUN Blood Gas Notified Whom MM Blood Gas Notified Time 08/25/2017 8:45:29 PM Test 08/25/17 22:43 08/25/17 23:25 08/26/17 00:34 08/26/17 00:56 Bedside Glucose 102 100 116 Sodium Level 138 Potassium Level 3.7 Chloride Level 99 Carbon Dioxide Level 31 Anion Gap 12 Blood Urea Nitrogen 9 Creatinine 0.80 Glucose Level 124 # Calcium Level 7.6 L Test 08/26/17 01:41 08/26/17 01:44 08/26/17 02:45 08/26/17 04:01 Bedside Glucose 125 111 116 107 Test 08/26/17 05:00 08/26/17 05:12 08/26/17 06:17 08/26/17 07:31 Blood Gas Specimen Source Blood arterial Arterial Blood Date Drawn 08/26/2017 4:55:31 AM Arterial Blood pH (Temp corrected) 7.303 L Arterial Blood pCO2 (Temp correct) 49.2 H Arterial Blood pO2 (Temp corrected) 61.5 L Arterial Blood HCO3 24.1 Arterial Blood Base Excess -2.5 Arterial Blood Oxygen Saturation 89.6 L Kar Test ACCEPTAB Arterial Blood Gas Puncture Site Right Radial Arterial Blood Carboxyhemoglobin 0.4 Arterial Blood Methemoglobin 0.4 Blood Gas A-a O2 Differential 605.1 H Oxyhemoglobin Percent 88.9 L Total Hemoglobin 8.4 L Blood Gas Temperature 35.9 Blood Gas Respiration Rate 20.0 Blood Gas Actual Respiration Rate 20 Blood Gas Modality VENT - AC FiO2 100.0 Blood Gas Tidal Volume 600.0 Blood Gas Low PEEP Setting 10.0 Blood Gas Critical Value Read Back R RADHA CACERES Blood Gas Notified Whom Blood Gas Notified Time 08/26/2017 5:25:06 AM Bedside Glucose 109 110 114 Test 08/26/17 08:28 08/26/17 08:29 08/26/17 09:50 08/26/17 10:45 White Blood Count 11.6 #H Red Blood Count 6.93 H Hemoglobin 19.2 H Hematocrit 62.2 H Mean Corpuscular Volume 89.8 Mean Corpuscular Hemoglobin 27.7 L Mean Corpuscular Hemoglobin Concent 30.9 L Red Cell Distribution Width 20.6 H Platelet Count 129 #L Mean Platelet Volume 9.6 Neutrophils % 91.0 H Lymphocytes % 4.5 L Monocytes % 3.4 Eosinophils % 0.3 Basophils % 0.3 Nucleated Red Blood Cells % 0.3 H Neutrophils # 10.5 H Lymphocytes # 0.5 L Monocytes # 0.4 Eosinophils # 0.0 Basophils # 0.0 Nucleated Red Blood Cells # 0.0 Sodium Level 138 Potassium Level 3.7 Chloride Level 99 Carbon Dioxide Level 29 Anion Gap 14 Blood Urea Nitrogen 9 Creatinine 0.85 Glucose Level 151 Lactic Acid Level 3.0 *H Calcium Level 7.6 L Magnesium Level 1.6 L Bedside Glucose 153 141 131 Test 08/26/17 11:43 08/26/17 12:50 08/26/17 13:53 08/26/17 14:05 Bedside Glucose 104 101 124 Blood Gas Specimen Source Blood arterial Arterial Blood Date Drawn 08/26/2017 2:00:06 PM Arterial Blood pH (Temp corrected) 7.442 Arterial Blood pCO2 (Temp correct) 39.4 Arterial Blood pO2 (Temp corrected) 48.0 *L Arterial Blood HCO3 26.3 H Arterial Blood Base Excess 2.2 Arterial Blood Oxygen Saturation 82.1 L Kar Test ACCEPTAB Arterial Blood Gas Puncture Site Left Radial Arterial Blood Carboxyhemoglobin 0.1 Arterial Blood Methemoglobin 0.4 Blood Gas A-a O2 Differential 625.6 H Oxyhemoglobin Percent 81.7 L Total Hemoglobin 21.6 H Blood Gas Temperature 37.0 Blood Gas Respiration Rate 26.0 Blood Gas Actual Respiration Rate 26 Blood Gas Modality VENT - AC FiO2 100.0 Blood Gas Tidal Volume 600.0 Blood Gas Low PEEP Setting 14.0 Blood Gas Critical Value Read Back Markos PRAJAPATI RN Blood Gas Notified Whom RDIX Blood Gas Notified Time 08/26/2017 2:14:49 PM Medications Medications Current Medications Fentanyl (Sublimaze) 25 mcg Q10M PRN IV SEDATION; Start 08/24/17 at 07:00 Flumazenil (Romazicon) 0.2 mg Q1M PRN IV BENZODIAZEPINE OVERDOSE; Start at 07:30 Naloxone HCl (Narcan) 0.4 mg Q3M PRN IV DECREASED REPIRATORY RATE; Start at 07:30 Ondansetron HCl (Zofran Inj) 4 mg Q6H PRN IV NAUSEA AND/OR VOMITING; Start 08/24/17 at 07:30 Nitroglycerin (Nitroglycerin (Sl Tab) 0.4 Mg) 1 tab Q5M PRN SL CHEST PAIN; Start 08/24/17 at 07:30 Acetaminophen (Tylenol Liquid) 650 mg Q6H PRN PO PAIN LEVEL 1-3 OR FEVER; Start 08/24/17 at 07:30 Acetaminophen (Tylenol Tab) 650 mg Q6H PRN PO PAIN LEVEL 1-3 OR FEVER; Start 08/24/17 at 07:30 Acetaminophen (Tylenol Supp) 650 mg Q4H PRN [place] PAIN LEVEL 1-3 OR FEVER; Start 08/24/17 at 07:30 Ibuprofen (Motrin) 600 mg Q6H PRN PO PAIN LEVEL 1-3 OR FEVER; Start 08/24/17 at 07:30 Acetaminophen/ Hydrocodone Bitart ([place] (5/325)) 1 tab Q6H PRN PO PAIN LEVEL 4 -6; Start 08/24/17 at 07:30 Morphine Sulfate (morphine) 2 mg Q4H PRN IV PAIN LEVEL 7-10; Start 08/24/17 at 07:30 Lorazepam (Ativan) 1 mg Q2H PRN IV ANXIETY Last administered on 08/26/17 09:48 ; Admin Dose 1 MG; Start 08/24/17 at 07:30 Docusate Sodium (Colace) 100 mg Q12H PRN PO CONSTIPATION; Start 08/24/17 at 07: 30 Magnesium Hydroxide (Milk Of Mag) 30 ml DAILY PRN PO CONSTIPATION; Start at 07:30 Bisacodyl (Dulcolax) 5 mg DAILY PRN PO CONSTIPATION; Start 08/24/17 at 07:30 Bisacodyl (Dulcolax Supp) 10 mg DAILY PRN [place] CONSTIPATION; Start 08/24/17 at 07 :30 Sodium Biphosphate/ Sodium Phosphate (Fleet Enema) 133 ml DAILY PRN RI CONSTIPATION; Start 08/24/17 at 07:30 Eye Lubricant (Artificial Tears Oph) 1 drop TID BOTH EYES Last administered on 08/26/17 12:49; Admin Dose 1 DROP; Start 08/24/17 at 09:00 Enoxaparin Sodium 40 mg 40 mg DAILY SC Last administered on 08/26/17 08:06; Admin Dose 40 MG; Start 08/24/17 at 09:00 Piperacillin Sod/ Tazobactam Sod (Zosyn 3.375gm/ 50 ml (Pmx)) 50 ml @ 0 mls/hr Q6 IV Last administered on 08/26/17 12:12; Admin Dose 100 MLS/HR; Start at 12:00 Pantoprazole (Protonix Tab) 40 mg DAILY@06 PO Last administered on 08/26/17 05 :18; Admin Dose 40 MG; Start 08/25/17 at 06:00 Hydralazine HCl (Apresoline) 10 mg Q6H PRN IV ELEVATED BLOOD PRESSURE; Start 08/24/17 at 15:30 Levothyroxine Sodium (Synthroid) 25 mcg DAILY@06 NGT Last administered on 05:37; Admin Dose 25 MCG; Start 08/25/17 at 06:00 Acetaminophen (Tylenol Supp) 650 mg Q4H PRN RI TEMP > 37C; Start 08/24/17 at 18 :30 Acetaminophen (Tylenol Supp) 500 mg Q6H RI Last administered on 08/26/17 12:53 ; Admin Dose 500 MG; Start 08/25/17 at 18:30 Acetaminophen (Tylenol Liquid) 500 mg Q6H PO Last administered on 08/26/17 12: 10; Admin Dose 500 MG; Start 08/25/17 at 18:30 Meperidine HCl (Demerol) 12.5 mg Q4H PRN IV POST OPERATIVE SHIVERING; Start at 18:30 Meperidine HCl (Demerol) 25 mg Q4H PRN IV POST OPERATIVE SHIVERING; Start 08/24 at 18:30 Eye Lubricant (Akwa Oint) 1 applic Q6 BOTH EYES Last administered on 08/26/17 12:06; Admin Dose 1 APPLIC; Start 08/24/17 at 18:30 Eye Lubricant (Artificial Tears Oph) 2 drop Q6 BOTH EYES Last administered on 08/26/17 12:06; Admin Dose 2 DROP; Start 08/24/17 at 18:30 Diagnostic Test (Pha) (Accu-Chek) 1 ea Q1H XX Last administered on 08/26/17 14 :12; Admin Dose 1 EA; Start 08/24/17 at 18:30 Dextrose (D50w Syringe) 25 ml Q15M PRN IV Till BS 80 mg/dL or above x2; Start 08/24/17 at 18:30 Dextrose 50 ml 50 ml Q15M PRN IV Till BS 80 mg/dL or above x2; Start 08/24/17 at 18:30 Propofol 100 ml @ 3.75 mls/hr Q12H IV Last administered on 08/26/17 12:06; Admin Dose 22.5 MLS/HR; Start 08/24/17 at 19:30 Vecuronium [place] 100 mg/ Dextrose 100 ml @ 6.25 mls/hr TITRATE IV Last administered on 08/25/17 10:44; Admin Dose 2.5 MLS/HR; Start 08/25/17 at 10:00 Levetiracetam 100 ml @ 400 mls/hr Q12 IVPB Last administered on 08/26/17 08: 05; Admin Dose 400 MLS/HR; Start 08/25/17 at 10:00 Vancomycin HCl/ Sodium Chloride (Vancocin/NS) 250 ml @ 83.333 mls/ hr Q12H IVPB Last administered on 08/26/17 03:27; Admin Dose 83.333 MLS/HR; Start 08/26/17 at 04:00 Miscellaneous Information VANCOMYCIN TROUGH 08/27 AT 0300 ONCE ONCE XX ; Start 08/27/17 at 03:00; Stop 08/27/17 at 03:01 Potassium Chloride 250 ml @ 62.5 mls/hr ONCE ONCE IVPB Last administered on 08/26/17 12:48; Admin Dose 62.5 MLS/HR; Start 08/26/17 at 12:30; Stop 08/26/17 at 16:29 Norepinephrine/ Dextrose (Levophed/D5W) 500 ml @ 1.87 mls/hr TITRATE IV Last administered on 08/26/17 14:32; Admin Dose 22.5 MLS/HR; Start 08/26/17 at 13:30 MIKE LUONG MD Aug 26, 2017 15:28
[2017-08-26] MEDS ORDERED: MAGNESIUM SULFATE 2 GM/50 ML 50 ML IVPB ONE (15:30)
[2017-08-26] MEDS: morphine 2 MG INJ IV PRN (23:34)
[2017-08-27] VITALS (71 sets, daily range): BP systolic 79–157; BP diastolic 46–105; PULSE 94–127; RESP 17–48
[2017-08-27] MEDS: ARTIFICIAL TEARS 15 ML OPH BOTH EYES SCH ×6 (00:01→21:00)
[2017-08-27] MEDS: OCULAR LUBRICANT 3.5 GM OPH OINT BOTH EYES SCH ×3 (00:01→10:29)
[2017-08-27] MEDS: ACCU-CHEK XX SCH ×15 (00:03→14:53)
[2017-08-27] MEDS: ACETAMINOPHEN 650 MG SUPP PR SCH ×4 (00:30→18:30)
[2017-08-27] MEDS: ALBUTEROL HFA 8 GM INHALER INH SCH ×5 (01:09→21:01)
[2017-08-27] MEDS: ACETYLCYSTEINE 20% 4 ML VIAL NEB SCH ×3 (01:09→13:03)
[2017-08-27] MEDS: IPRATROPIUM (HFA) 12.9 GM INHALER INH SCH ×5 (01:09→21:01)
[2017-08-27 01:16] LABS: AADO2 Arterial 617.3 mmHg (7.0-24.0); Allen Test ACCEPTAB; Arterial Base Excess 1.4 mmol/L (-3.0-3); Arterial COHb 0.1 % (0.0-3.0); Arterial Fraction of Oxyhgb 83.8 % (93.0-99.0); Arterial HCO3 26.4 mmol/L (22.0-26.0); Arterial MetHb 0.4 % (0.0-1.5); Arterial Total Hemglobin 21.1 g/dl (12.0-18.0); MODE VENT - PC
[2017-08-27] MEDS: PROPOFOL 100 ML IV SCH ×6 (02:22→23:19)
[2017-08-27] MEDS: morphine 2 MG INJ IV PRN (03:38)
[2017-08-27] MEDS: LORAZEPAM 2 MG INJ IV PRN (04:00)
[2017-08-27 04:09] LABS: BASOPHIL # 0.1 10^3/ul (0.0-0.1); BASOPHILS % 0.4 % (0.0-2.0); EOSINOPHILS # 0.1 10^3/ul (0.0-0.5); EOSINOPHILS % 0.6 % (0.0-7.0); HEMATOCRIT 65.7 % (42.0-52.0); HEMOGLOBIN 20.1 g/dl (14.0-18.0); LYMPHOCYTES # 1.8 10^3/ul (0.8-2.9); LYMPHOCYTES % 11.3 % (15.0-51.0); MEAN CORPUSCULAR HEMOGLOBIN 27.9 pg (29.0-33.0); MEAN CORPUSCULAR HGB CONC 30.6 g/dl (32.0-37.0); MEAN CORPUSCULAR VOLUME 91.3 fl (82.0-101.0); MEAN PLATELET VOLUME 10.1 fl (7.4-10.4); MONOCYTE # 1.1 10^3/ul (0.3-0.9); MONOCYTES % 6.6 % (0.0-11.0); NEUTROPHIL # 12.9 10^3/ul (1.6-7.5); NEUTROPHILS % 80.6 % (39.0-77.0); NUCLEATED RED BLOOD CELLS% 0.2 /100WBC (0.0-0.0); PLATELET COUNT 194 10^3/UL (140-415); RED CELL DISTRIBUTION WIDTH 21.1 % (11.5-14.5)
[2017-08-27 04:52] LABS: CALCIUM 8.1 mg/dl (8.4-10.2); CREATININE 1.34 mg/dl (0.61-1.24); POTASSIUM 4.3 mmol/L (3.5-5.1)
[2017-08-27 05:02] LABS: AADO2 Arterial 605.1 mmHg (7.0-24.0); Allen Test ACCEPTAB; Arterial Base Excess -1.2 mmol/L (-3.0-3); Arterial COHb 0.3 % (0.0-3.0); Arterial Fraction of Oxyhgb 85.9 % (93.0-99.0); Arterial HCO3 25.5 mmol/L (22.0-26.0); Arterial MetHb 0.4 % (0.0-1.5); Arterial Total Hemglobin 21.5 g/dl (12.0-18.0); MODE VENT - PC
[2017-08-27] MEDS ORDERED: LORAZEPAM 2 MG INJ IV ONE (05:30)
[2017-08-27] MEDS: VANCOMYCIN 1.5 GM in SOD CHLORIDE 0.9% 250 ML IVPB SCH (05:31)
[2017-08-27] MEDS: LEVOTHYROXINE 25 MCG TAB NGT SCH (05:43)
[2017-08-27] MEDS: PANTOPRAZOLE (EC) 40 MG TAB PO SCH (05:43)
[2017-08-27] MEDS: ACETAMINOPHEN 650MG/20.3ML CUP PO SCH ×4 (05:44→22:55)
[2017-08-27] MEDS: PIPER-TAZO 3.375 GM IV (PMX) 50 ML IV SCH ×3 (06:02→18:00)
--- NOTE | 2017-08-27 07:38 | RADRPT ---
PROCEDURE: XR Chest. CLINICAL INDICATION: Shortness of breath. TECHNIQUE: Single frontal view. COMPARISON: 08/26/2017. FINDINGS: The endotracheal tube should be advanced approximately 3 cm as the tip is at the level of the upper clavicle heads and is approximately 6.5 cm above the [place]. There is mild atelectasis at the lung b ases with right worse than left. Pulmonary edema is unchanged. The lungs are otherwise clear. The heart is enlarged. There are small bilateral pleural effusions. There is no pneumothorax. IMPRESSION: 1. The endotracheal tube should be advanced approximately 3 cm. 2. Atelectasis at the lung bases with right worse than left. 3. Unchanged pulmonary edema. 4. Cardiomegaly. 5. Small bilateral pleural effusions. 6. No change from the prior chest radiograph dated 08/26/2017. RPTAT: QQ .Niels Stanton MD, Date Time Electronically viewed and signed by .Niels Stanton MD, on 08/27/2017 07:37 .R/
--- NOTE | 2017-08-27 07:51 | CONS ---
DATE OF ADMISSION: 08/24/2017 DATE OF CONSULTATION: HISTORY OF PRESENT ILLNESS: Patient is a 36 years old male, who had a cardiopulmonary arrest, statu s post sepsis, bacteremia, morbid obesity, hypertension, anemia, seizure, possible anoxic brain inju ry, underlying diabetes, obesity. PHYSICAL EXAMINATION: GENERAL: Today, the patient is alert, does not follow any verbal commands. HEART: Regular rate and rhythm. LUNGS: Equal breath sounds, diminished bilaterally at the base. ABDOMEN: Soft, obese, nontender. EXTREMITIES: No cyanosis, clubbing or edema. CRANIAL NERVES: Cranial nerve II: Pupils reactive to light, equal on both sides. Cranial nerves I II, IV and : Extraocular muscles intact for Doll's maneuver. Cranial nerves V and VII: Intact corneal reflex. Cranial nerves VIII through XII could not assess. MOTOR: Slight movements, withdrawal for painful stimuli. SENSATION, GAIT AND COORDINATION: Could not assess. ASSESSMENT AND PLAN: 1. The patient is 36 years old status post cardiopulmonary arrest. 2. Status post anoxic encephalopathy. We will follow up the patient with electroencephalogram. 3. History of underlying seizure disorder. Follow up the patient with electroencephalogram for mor e evaluation and treatment, and keep the patient under seizure precautions. 4. Underlying sepsis with the patient underlying IV antibiotics. 5. Decreased mini mental status, possibly secondary to all of the above, and I will follow up the p atient after the encephalogram. Dictated By: JULY CLARK MD NA/NTS Conf#: [id number] DID#: [id number] CC: MIKE LUONG MD;*End*
--- NOTE | 2017-08-27 07:52 | CONS ---
Date/Time of Note Date/Time of Note DATE: 08/27/17 TIME: 07:36 Assessment/Plan Assessment/Plan Chief Complaint/Hosp Course 36 yo with #Polycythemia -this is either secondary polycythemia from an underlying hypoxemic condition vs primary polycythemia rubra vera -the most common cause of secondary polycythemia is from chronic smoking but it is unclear for how long this patient smoked for and for how long -will check Erythropoietin level. A low erythropoietin level is most consistent with primary polycythemia rubra vera v a normal erythropoietin level is consistent with a secondary polycythemia -will also check FORTUNATO 2 mutation analysis as this positive in > 95% of cases of Primary polycythemia rubra vera #s/p Cardiac Arrest -continue ICU care -pt on low dose pressors and s/o hypothermia protocol #Diabetes -on insulin drip #Anoxic Brain Injury -neuro on board -EEG done -continue to monitor mental status -pt currently on sedation approximately 50 was spent at bedside and in coordination of this critical patient's care Problems: Consultation Date/Type/Reason Admit Date/Time Aug 24, 2017 at 07:05 Date of Consultation: Aug 27, 2017 Type of Consultation: Hematology Reason for Consultation hematology Referring Provider: MIKE LUONG Hx of Present Illness 36 yo with history of seizure activity 2 days prior to presentation as well as URI sx. He then suffered from a cardiac arrest and was brought to [facility] via EMS on 08/24/17. He was found to have PEA, intubated, treated with CPR and epinephrine 1 mg IV 3. He suffer Pt now has GPC bacteremia, and currently on 4mcg of Levaphed. He suffers from anoxic brain injury. He is also on an insluin gtt and was found to have Hb A1c of 8.7 consistent with untreated diabetes. Per ER record pt was brougnt by paramedics. According to the girlfriend, he has had a cold for the last 2 days , trouble sleeping for the last couple days. She found him having a seizure on the bed at approximately 3:50 AM. She called 911 at 4 AM. The EMS arrived at the scene at 4:06 AM. He was found to have PEA, intubated with Sb airway, treated with CPR and epinephrine 1 mg IV 3. He had ROSC at 4:20 AM and arrived to the ER at 4:35 AM. Since admission, pt has been found to be polycythemic with a Hg between 19-20. We have thus been consulted for further workup of an underlying myeloproliferative disorder. Subjective hx not possible: pt critical status Past Medical History Medical History: diabetes, hypertension Past Surgical History Past Surgical Hx: no surgical history Family History Significant Family History: no pertinent family hx Social History Alcohol Use: none Smoking Status: Former smoker Drug Use: none Exam/Review of Systems Vital Signs Vitals Vital Signs Date Time Temp Pulse Resp B/P Pulse Ox O2 Delivery O2 Flow Rate FiO2 08/27/17 06:15 101 28 89 08/27/17 06:00 102/68 08/27/17 05:15 100 08/27/17 04:00 99.8 Mechanical Ventilator 08/24/17 16:00 10.0 Intake and Output 08/26/17 08/26/17 08/27/17 15:00 23:00 07:00 Intake Total 861.22 ml 321.06 ml 100 ml Output Total 355 ml 383 ml 228 ml Balance 506.22 ml -61.94 ml -128 ml Exam Constitutional: non-verbal Eyes: nl conjunctiva ENMT: intubated Neck: supple Respiratory: other (mechanical breath sounds) Cardiovascular: regular rate and rhythm Gastrointestinal: soft Musculoskeletal: nl extremities to inspection, nl gait and stance Extremities: normal pulses Results His chest x-ray shows diffuse bilateral perihilar and lower lobe parenchymal opacities representing pulmonary edema and/or pneumonia. Moderate cardiomegaly. He has an endotracheal tube and an NG tube. A cervical spine CT shows no acute fractures. A CT scan of the brain shows no acute intracranial pathology, extensive opacification of the nasal cavity secondary to the presence of the NG tube, opacification of the bilateral ethmoid sinuses. CT and thoracic angiogram shows no evidence of pulmonary emboli, moderate cardiomegaly, mild pulmonary vascular congestion. Result Diagram: 08/27/17 0358 08/27/17 0358 Results 24 hrs Laboratory Tests Test 08/26/17 08:28 08/26/17 08:29 08/26/17 09:50 08/26/17 10:45 White Blood Count 11.6 #H Red Blood Count 6.93 H Hemoglobin 19.2 H Hematocrit 62.2 H Mean Corpuscular Volume 89.8 Mean Corpuscular Hemoglobin 27.7 L Mean Corpuscular Hemoglobin Concent 30.9 L Red Cell Distribution Width 20.6 H Platelet Count 129 #L Mean Platelet Volume 9.6 Neutrophils % 91.0 H Lymphocytes % 4.5 L Monocytes % 3.4 Eosinophils % 0.3 Basophils % 0.3 Nucleated Red Blood Cells % 0.3 H Neutrophils # 10.5 H Lymphocytes # 0.5 L Monocytes # 0.4 Eosinophils # 0.0 Basophils # 0.0 Nucleated Red Blood Cells # 0.0 Sodium Level 138 Potassium Level 3.7 Chloride Level 99 Carbon Dioxide Level 29 Anion Gap 14 Blood Urea Nitrogen 9 Creatinine 0.85 Glucose Level 151 Lactic Acid Level 3.0 *H Calcium Level 7.6 L Magnesium Level 1.6 L Bedside Glucose 153 141 131 Test 08/26/17 11:43 08/26/17 12:50 08/26/17 13:53 08/26/17 14:05 Bedside Glucose 104 101 124 Blood Gas Specimen Source Blood arterial Arterial Blood Date Drawn 08/26/2017 2:00:06 PM Arterial Blood pH (Temp corrected) 7.442 Arterial Blood pCO2 (Temp correct) 39.4 Arterial Blood pO2 (Temp corrected) 48.0 *L Arterial Blood HCO3 26.3 H Arterial Blood Base Excess 2.2 Arterial Blood Oxygen Saturation 82.1 L Kar Test ACCEPTAB Arterial Blood Gas Puncture Site Left Radial Arterial Blood Carboxyhemoglobin 0.1 Arterial Blood Methemoglobin 0.4 Blood Gas A-a O2 Differential 625.6 H Oxyhemoglobin Percent 81.7 L Total Hemoglobin 21.6 H Blood Gas Temperature 37.0 Blood Gas Respiration Rate 26.0 Blood Gas Actual Respiration Rate 26 Blood Gas Modality VENT - AC FiO2 100.0 Blood Gas Tidal Volume 600.0 Blood Gas Low PEEP Setting 14.0 Blood Gas Critical Value Read Back Markos PRAJAPATI RN Blood Gas Notified Whom RDIX Blood Gas Notified Time 08/26/2017 2:14:49 PM Test 08/26/17 15:50 08/26/17 16:39 08/26/17 17:51 08/26/17 19:31 Bedside Glucose 97 140 110 105 Test 08/26/17 20:37 08/26/17 22:03 08/26/17 22:58 08/26/17 23:31 Bedside Glucose 109 91 108 94 Test 08/27/17 00:56 08/27/17 01:00 08/27/17 01:57 08/27/17 02:57 Bedside Glucose 90 101 90 Blood Gas Specimen Source Blood arterial Arterial Blood Date Drawn 08/27/2017 1:00:44 AM Arterial Blood pH (Temp corrected) 7.411 Arterial Blood pCO2 (Temp correct) 42.5 Arterial Blood pO2 (Temp corrected) 53.2 *L Arterial Blood HCO3 26.4 H Arterial Blood Base Excess 1.4 Arterial Blood Oxygen Saturation 84.2 L Kar Test ACCEPTAB Arterial Blood Gas Puncture Site Left Radial Arterial Blood Carboxyhemoglobin 0.1 Arterial Blood Methemoglobin 0.4 Blood Gas A-a O2 Differential 617.3 H Oxyhemoglobin Percent 83.8 L Total Hemoglobin 21.1 H Blood Gas Temperature 37.0 Blood Gas Respiration Rate 26.0 Blood Gas Actual Respiration Rate 36 Blood Gas Modality VENT - PC FiO2 100.0 Blood Gas High PEEP Setting 30.0 Blood Gas Low PEEP Setting 14.0 Blood Gas Critical Value Read Back СВЕТЛАНА CACERES Blood Gas Notified Whom MA Blood Gas Notified Time 08/27/2017 1:16:48 AM Test 08/27/17 03:58 08/27/17 05:00 08/27/17 05:02 08/27/17 06:06 White Blood Count 16.0 #H Red Blood Count 7.20 H Hemoglobin 20.1 H Hematocrit 65.7 H Mean Corpuscular Volume 91.3 Mean Corpuscular Hemoglobin 27.9 L Mean Corpuscular Hemoglobin Concent 30.6 L Red Cell Distribution Width 21.1 H Platelet Count 194 # Mean Platelet Volume 10.1 Neutrophils % 80.6 H Lymphocytes % 11.3 L Monocytes % 6.6 Eosinophils % 0.6 Basophils % 0.4 Nucleated Red Blood Cells % 0.2 H Neutrophils # 12.9 H Lymphocytes # 1.8 Monocytes # 1.1 H Eosinophils # 0.1 Basophils # 0.1 Nucleated Red Blood Cells # 0.0 Sodium Level 141 Potassium Level 4.3 Chloride Level 99 Carbon Dioxide Level 29 Anion Gap 17 H Blood Urea Nitrogen 12 Creatinine 1.34 H Glucose Level 117 Calcium Level 8.1 L Magnesium Level 2.3 Vancomycin Level Trough 14.3 Blood Gas Specimen Source Blood arterial Arterial Blood Date Drawn 08/27/2017 4:50:51 AM Arterial Blood pH (Temp corrected) 7.335 L Arterial Blood pCO2 (Temp correct) 49.0 H Arterial Blood pO2 (Temp corrected) 58.9 L Arterial Blood HCO3 25.5 Arterial Blood Base Excess -1.2 Arterial Blood Oxygen Saturation 86.5 L Kar Test ACCEPTAB Arterial Blood Gas Puncture Site Left Radial Arterial Blood Carboxyhemoglobin 0.3 Arterial Blood Methemoglobin 0.4 Blood Gas A-a O2 Differential 605.1 H Oxyhemoglobin Percent 85.9 L Total Hemoglobin 21.5 H Blood Gas Temperature 37.0 Blood Gas Respiration Rate 26.0 Blood Gas Actual Respiration Rate 52 Blood Gas Modality VENT - PC FiO2 100.0 Blood Gas Tidal Volume 600.0 Blood Gas Low PEEP Setting 14.0 Blood Gas Inspiratory Pressure 49.0 Blood Gas Notified Whom MH Blood Gas Notified Time 08/27/2017 5:02:21 AM Bedside Glucose 87 100 Medications Medications Current Medications Fentanyl (Sublimaze) 25 mcg Q10M PRN IV SEDATION; Start 08/24/17 at 07:00 Flumazenil (Romazicon) 0.2 mg Q1M PRN IV BENZODIAZEPINE OVERDOSE; Start at 07:30 Naloxone HCl (Narcan) 0.4 mg Q3M PRN IV DECREASED REPIRATORY RATE; Start at 07:30 Ondansetron HCl (Zofran Inj) 4 mg Q6H PRN IV NAUSEA AND/OR VOMITING; Start 08/24/17 at 07:30 Nitroglycerin (Nitroglycerin (Sl Tab) 0.4 Mg) 1 tab Q5M PRN SL CHEST PAIN; Start 08/24/17 at 07:30 Acetaminophen (Tylenol Liquid) 650 mg Q6H PRN PO PAIN LEVEL 1-3 OR FEVER; Start 08/24/17 at 07:30 Acetaminophen (Tylenol Tab) 650 mg Q6H PRN PO PAIN LEVEL 1-3 OR FEVER; Start 08/24/17 at 07:30 Acetaminophen (Tylenol Supp) 650 mg Q4H PRN TN PAIN LEVEL 1-3 OR FEVER; Start 08/24/17 at 07:30 Ibuprofen (Motrin) 600 mg Q6H PRN PO PAIN LEVEL 1-3 OR FEVER; Start 08/24/17 at 07:30 Acetaminophen/ Hydrocodone Bitart ([place] (5/325)) 1 tab Q6H PRN PO PAIN LEVEL 4 -6; Start 08/24/17 at 07:30 Morphine Sulfate (morphine) 2 mg Q4H PRN IV PAIN LEVEL 7-10 Last administered on 08/27/17 03:38; Admin Dose 2 MG; Start 08/24/17 at 07:30 Lorazepam (Ativan) 1 mg Q2H PRN IV ANXIETY Last administered on 08/27/17 04:00 ; Admin Dose 1 MG; Start 08/24/17 at 07:30 Docusate Sodium (Colace) 100 mg Q12H PRN PO CONSTIPATION; Start 08/24/17 at 07: 30 Magnesium Hydroxide (Milk Of Mag) 30 ml DAILY PRN PO CONSTIPATION; Start at 07:30 Bisacodyl (Dulcolax) 5 mg DAILY PRN PO CONSTIPATION; Start 08/24/17 at 07:30 Bisacodyl (Dulcolax Supp) 10 mg DAILY PRN TN CONSTIPATION; Start 08/24/17 at 07 :30 Sodium Biphosphate/ Sodium Phosphate (Fleet Enema) 133 ml DAILY PRN TN CONSTIPATION; Start 08/24/17 at 07:30 Eye Lubricant (Artificial Tears Oph) 1 drop TID BOTH EYES Last administered on 08/26/17 20:38; Admin Dose 1 DROP; Start 08/24/17 at 09:00 Enoxaparin Sodium 40 mg 40 mg DAILY SC Last administered on 08/26/17 08:06; Admin Dose 40 MG; Start 08/24/17 at 09:00 Piperacillin Sod/ Tazobactam Sod (Zosyn 3.375gm/ 50 ml (Pmx)) 50 ml @ 0 mls/hr Q6 IV Last administered on 08/27/17 06:02; Admin Dose 100 MLS/HR; Start at 12:00 Pantoprazole (Protonix Tab) 40 mg DAILY@06 PO Last administered on 08/27/17 05 :43; Admin Dose 40 MG; Start 08/25/17 at 06:00 Hydralazine HCl (Apresoline) 10 mg Q6H PRN IV ELEVATED BLOOD PRESSURE; Start 08/24/17 at 15:30 Levothyroxine Sodium (Synthroid) 25 mcg DAILY@06 NGT Last administered on 05:43; Admin Dose 25 MCG; Start 08/25/17 at 06:00 Acetaminophen (Tylenol Supp) 650 mg Q4H PRN TN TEMP > 37C; Start 08/24/17 at 18 :30 Acetaminophen (Tylenol Supp) 500 mg Q6H TN Last administered on 08/26/17 12:53 ; Admin Dose 500 MG; Start 08/25/17 at 18:30 Acetaminophen (Tylenol Liquid) 500 mg Q6H PO Last administered on 08/27/17 05: 44; Admin Dose 500 MG; Start 08/25/17 at 18:30 Meperidine HCl (Demerol) 12.5 mg Q4H PRN IV POST OPERATIVE SHIVERING; Start at 18:30 Meperidine HCl (Demerol) 25 mg Q4H PRN IV POST OPERATIVE SHIVERING; Start 08/24 at 18:30 Eye Lubricant (Akwa Oint) 1 applic Q6 BOTH EYES Last administered on 08/27/17 05:52; Admin Dose 1 APPLIC; Start 08/24/17 at 18:30 Eye Lubricant (Artificial Tears Oph) 2 drop Q6 BOTH EYES Last administered on 08/27/17 05:52; Admin Dose 2 DROP; Start 08/24/17 at 18:30 Diagnostic Test (Pha) (Accu-Chek) 1 ea Q1H XX Last administered on 08/27/17 06 :00; Admin Dose 1 EA; Start 08/24/17 at 18:30 Dextrose (D50w Syringe) 25 ml Q15M PRN IV Till BS 80 mg/dL or above x2; Start 08/24/17 at 18:30 Dextrose 50 ml 50 ml Q15M PRN IV Till BS 80 mg/dL or above x2; Start 08/24/17 at 18:30 Propofol 100 ml @ 3.75 mls/hr Q12H IV Last administered on 08/27/17 05:31; Admin Dose 37.5 MLS/HR; Start 08/24/17 at 19:30 Vecuronium [place] 100 mg/ Dextrose 100 ml @ 6.25 mls/hr TITRATE IV Last administered on 08/25/17 10:44; Admin Dose 2.5 MLS/HR; Start 08/25/17 at 10:00 Levetiracetam 100 ml @ 400 mls/hr Q12 IVPB Last administered on 08/26/17 20: 33; Admin Dose 400 MLS/HR; Start 08/25/17 at 10:00 Vancomycin HCl 1.5 gm/Sodium Chloride 250 ml @ 83.333 mls/ hr Q12H IVPB Last administered on 08/27/17 05:31; Admin Dose 83.333 MLS/HR; Start 08/26/17 at 04: 00 Norepinephrine/ Dextrose (Levophed/D5W) 500 ml @ 1.87 mls/hr TITRATE IV Last administered on 08/26/17 14:32; Admin Dose 22.5 MLS/HR; Start 08/26/17 at 13:30 MARCELL MILLER M.D. Aug 27, 2017 07:50
--- NOTE | 2017-08-27 08:01 | CONS ---
DATE OF ADMISSION: 08/24/2017 DATE OF CONSULTATION: HISTORY OF PRESENT ILLNESS: The patient is 36 years old male, had a cardiopulmonary arrest, sepsis, status post hypothermia protocol, hypertension, flu-like symptoms, anemia. The patient had Sudafed , followed by seizure, per his girlfriend's history. CURRENT MEDICATIONS: Include: 1. Vancomycin. 2. Tylenol. 3. Keppra 500 mg twice a day. 4. Protonix 40 mg once a day. 5. Synthroid 25 mcg once a day. 6. Potassium chloride as needed. 7. Propofol titration. 8. Demerol 25. 9. Hydralazine 10 mg every 6 hours as needed. 10. Albuterol inhaler. 11. Lovenox 40 mg subcutaneous. PHYSICAL EXAMINATION: GENERAL: Today, the patient does not follow any commands. CARDIOVASCULAR: With regular rate and rhythm. LUNGS: Equal breath sounds. CRANIAL NERVES: Cranial nerve II: Pupils 2 mm, sluggish, reactive to light. Cranial nerves III, I V and : Intact for Doll's maneuver. Cranial nerves V and VII: Intact corneal reflex. Cranial n erves VIII through XII: Could not assess. MOTOR: Slight movement for painful stimuli. Sensation and gait and coordination, could not assess. ASSESSMENT AND PLAN: 1. The patient is 36 years old male status post cardiopulmonary arrest. 2. Underlying anoxic encephalopathy. We will follow up the patient with EEG. 3. We will keep the patient under deep venous thrombus prophylaxis, as well as decubitus ulcer prop hylaxis. 4. Possibility of underlying seizure activity. We will follow up the patient with EEG, and we will continue the patient on Keppra twice a day, and to keep the patient under seizure precautions for n ow. Dictated By: JUYL CLARK MD NA/NTS Conf#: [id number] DID#: [id number] CC: MIKE LUONG MD;*End*
--- NOTE | 2017-08-27 08:17 | PN ---
DATE: 08/25/2017 INFECTIOUS DISEASE PROGRESS NOTE SUBJECTIVE: Patient is sedated chemically paralyzed, intubated on hypothermia protocol, looks comfo rtable. VITAL SIGNS: Temperature 92.8, pulse 60, respirations 20, blood pressure 116/98, saturation 96%. LABORATORY DATA: WBC 9.3, H and H 20.5 and 66.5, platelets 128, neutrophils 84.4, BUN 10, creatinin e 0.81. MICROBIOLOGY: Urine culture negative, blood culture growing gram-positive cocci in pairs and cluste rs. INDWELLINGS: Endotracheal tube, NG tube, femoral triple lumen catheter. ANTIMICROBIALS: Patient is on Zosyn. DIAGNOSTICS: CT of the chest and thorax revealed no pulmonary emboli, infiltrate due to pneumonia. Aspiration not excluded. PHYSICAL EXAMINATION: GENERAL: This is a morbidly obese, well-developed, middle-aged man who is intubated, sedated and ch emically paralyzed. The patient is in no distress. HEENT: Atraumatic, normocephalic. Sclerae anicteric. Buccal mucosa dry. NECK: Supple. CHEST: Rise is symmetrical. Breath sounds are diminished bases. HEART: S1, S2. ABDOMEN: Distended. Bowel sounds absent. EXTREMITIES: Mottled, cyanotic. ASSESSMENT: 1. Sepsis with bacteremia, likely secondary to #2. 2. Acute respiratory failure with possible aspiration pneumonia. 3. Status post cardiopulmonary arrest. 4. Seizure disorder. 5. Morbid obesity. 6. Diabetes. PLAN: The patient remains hemodynamically stable. He is being followed by multiple consultants. W e will keep him on Zosyn. We will start him on IV vancomycin to cover gram-positive cocci and await for final cultures. We will also send sputum cultures and repeat blood cultures today. Discussed with staff. Dictated By: BEKA WATKINS RIGGER UP for JORDAN FORRESTER/YESI Conf#: [id number] DID#: [id number]
[2017-08-27] MEDS: LEVETIRACETAM 500 MG (PMX) 100 ML IVPB SCH ×2 (09:00→21:00)
--- NOTE | 2017-08-27 09:51 | CONS ---
Date/Time of Note Date/Time of Note DATE: 08/27/17 TIME: 09:49 Consult Date/Type/Reason Admit Date/Time Aug 24, 2017 at 07:05 Initial Consult Date 08/27/17 Type of Consultation: Pulmonary Ordering Provider: MIKE LUONG MD Subjective Patient continues mechanical ventilation with tachypnea and agitation. Hypoxemia with FiO2 of 100% and PEEP of 14. Objective Vital Signs Date Time Temp Pulse Resp B/P Pulse Ox O2 Delivery O2 Flow Rate FiO2 08/27/17 08:00 95 08/27/17 06:15 28 89 08/27/17 06:00 102/68 08/27/17 05:15 100 08/27/17 04:00 99.8 Mechanical Ventilator 08/24/17 16:00 10.0 Intake and Output 08/26/17 08/26/17 08/27/17 15:00 23:00 07:00 Intake Total 861.22 ml 665.96 ml 776.8 ml Output Total 355 ml 383 ml 228 ml Balance 506.22 ml 282.96 ml 548.8 ml Exam PHYSICAL EXAMINATION GENERAL: Chronically ill-appearing gentleman intubated on mechanical ventilation VITAL SIGNS: see below. HEENT: Pupils equal, round, and reactive to light. CARDIAC: S1, S2, 1/6 systolic ejection murmur CHEST: Diminished air entry bilaterally. ABDOMEN: Mildly distended. Bowel sounds present no guarding or rebound EXTREMITIES: No cyanosis, clubbing edema +1 NEUROLOGIC: Generalized weakness Results/Medications Result Diagram: 08/27/17 0358 08/27/17 0358 Results 24 hrs Laboratory Tests Test 08/26/17 09:50 08/26/17 10:45 08/26/17 11:43 08/26/17 12:50 Bedside Glucose 141 131 104 101 Test 08/26/17 13:53 08/26/17 14:05 08/26/17 15:50 08/26/17 16:39 Blood Gas Specimen Source Blood arterial Arterial Blood Date Drawn 08/26/2017 2:00:06 PM Arterial Blood pH (Temp corrected) 7.442 Arterial Blood pCO2 (Temp correct) 39.4 Arterial Blood pO2 (Temp corrected) 48.0 *L Arterial Blood HCO3 26.3 H Arterial Blood Base Excess 2.2 Arterial Blood Oxygen Saturation 82.1 L Kar Test ACCEPTAB Arterial Blood Gas Puncture Site Left Radial Arterial Blood Carboxyhemoglobin 0.1 Arterial Blood Methemoglobin 0.4 Blood Gas A-a O2 Differential 625.6 H Oxyhemoglobin Percent 81.7 L Total Hemoglobin 21.6 H Blood Gas Temperature 37.0 Blood Gas Respiration Rate 26.0 Blood Gas Actual Respiration Rate 26 Blood Gas Modality VENT - AC FiO2 100.0 Blood Gas Tidal Volume 600.0 Blood Gas Low PEEP Setting 14.0 Blood Gas Critical Value Read Back Markos PRAJAPATI RN Blood Gas Notified Whom BECKAIX Blood Gas Notified Time 08/26/2017 2:14:49 PM Bedside Glucose 124 97 140 Test 08/26/17 17:51 08/26/17 19:31 08/26/17 20:37 08/26/17 22:03 Bedside Glucose 110 105 109 91 Test 08/26/17 22:58 08/26/17 23:31 08/27/17 00:56 08/27/17 01:00 Bedside Glucose 108 94 90 Blood Gas Specimen Source Blood arterial Arterial Blood Date Drawn 08/27/2017 1:00:44 AM Arterial Blood pH (Temp corrected) 7.411 Arterial Blood pCO2 (Temp correct) 42.5 Arterial Blood pO2 (Temp corrected) 53.2 *L Arterial Blood HCO3 26.4 H Arterial Blood Base Excess 1.4 Arterial Blood Oxygen Saturation 84.2 L Kar Test ACCEPTAB Arterial Blood Gas Puncture Site Left Radial Arterial Blood Carboxyhemoglobin 0.1 Arterial Blood Methemoglobin 0.4 Blood Gas A-a O2 Differential 617.3 H Oxyhemoglobin Percent 83.8 L Total Hemoglobin 21.1 H Blood Gas Temperature 37.0 Blood Gas Respiration Rate 26.0 Blood Gas Actual Respiration Rate 36 Blood Gas Modality VENT - PC FiO2 100.0 Blood Gas High PEEP Setting 30.0 Blood Gas Low PEEP Setting 14.0 Blood Gas Critical Value Read Back СВЕТЛАНА CACERES Blood Gas Notified Whom CHERYL Blood Gas Notified Time 08/27/2017 1:16:48 AM Test 08/27/17 01:57 08/27/17 02:57 08/27/17 03:58 08/27/17 05:00 Bedside Glucose 101 90 White Blood Count 16.0 #H Red Blood Count 7.20 H Hemoglobin 20.1 H Hematocrit 65.7 H Mean Corpuscular Volume 91.3 Mean Corpuscular Hemoglobin 27.9 L Mean Corpuscular Hemoglobin Concent 30.6 L Red Cell Distribution Width 21.1 H Platelet Count 194 # Mean Platelet Volume 10.1 Neutrophils % 80.6 H Lymphocytes % 11.3 L Monocytes % 6.6 Eosinophils % 0.6 Basophils % 0.4 Nucleated Red Blood Cells % 0.2 H Neutrophils # 12.9 H Lymphocytes # 1.8 Monocytes # 1.1 H Eosinophils # 0.1 Basophils # 0.1 Nucleated Red Blood Cells # 0.0 Sodium Level 141 Potassium Level 4.3 Chloride Level 99 Carbon Dioxide Level 29 Anion Gap 17 H Blood Urea Nitrogen 12 Creatinine 1.34 H Glucose Level 117 Calcium Level 8.1 L Magnesium Level 2.3 Vancomycin Level Trough 14.3 Blood Gas Specimen Source Blood arterial Arterial Blood Date Drawn 08/27/2017 4:50:51 AM Arterial Blood pH (Temp corrected) 7.335 L Arterial Blood pCO2 (Temp correct) 49.0 H Arterial Blood pO2 (Temp corrected) 58.9 L Arterial Blood HCO3 25.5 Arterial Blood Base Excess -1.2 Arterial Blood Oxygen Saturation 86.5 L Kar Test ACCEPTAB Arterial Blood Gas Puncture Site Left Radial Arterial Blood Carboxyhemoglobin 0.3 Arterial Blood Methemoglobin 0.4 Blood Gas A-a O2 Differential 605.1 H Oxyhemoglobin Percent 85.9 L Total Hemoglobin 21.5 H Blood Gas Temperature 37.0 Blood Gas Respiration Rate 26.0 Blood Gas Actual Respiration Rate 52 Blood Gas Modality VENT - PC FiO2 100.0 Blood Gas Tidal Volume 600.0 Blood Gas Low PEEP Setting 14.0 Blood Gas Inspiratory Pressure 49.0 Blood Gas Notified Whom MH Blood Gas Notified Time 08/27/2017 5:02:21 AM Test 08/27/17 05:02 08/27/17 06:06 08/27/17 08:49 Bedside Glucose 87 100 114 Medications Current Medications Fentanyl (Sublimaze) 25 mcg Q10M PRN IV SEDATION; Start 08/24/17 at 07:00 Flumazenil (Romazicon) 0.2 mg Q1M PRN IV BENZODIAZEPINE OVERDOSE; Start at 07:30 Naloxone HCl (Narcan) 0.4 mg Q3M PRN IV DECREASED REPIRATORY RATE; Start at 07:30 Ondansetron HCl (Zofran Inj) 4 mg Q6H PRN IV NAUSEA AND/OR VOMITING; Start 08/24/17 at 07:30 Nitroglycerin (Nitroglycerin (Sl Tab) 0.4 Mg) 1 tab Q5M PRN SL CHEST PAIN; Start 08/24/17 at 07:30 Acetaminophen (Tylenol Liquid) 650 mg Q6H PRN PO PAIN LEVEL 1-3 OR FEVER; Start 08/24/17 at 07:30 Acetaminophen (Tylenol Tab) 650 mg Q6H PRN PO PAIN LEVEL 1-3 OR FEVER; Start 08/24/17 at 07:30 Acetaminophen (Tylenol Supp) [address] PAIN LEVEL 1-3 OR FEVER; Start 08/24/17 at 07:30 Ibuprofen (Motrin) 600 mg Q6H PRN PO PAIN LEVEL 1-3 OR FEVER; Start 08/24/17 at 07:30 Acetaminophen/ Hydrocodone Bitart ([place] (5/325)) 1 tab Q6H PRN PO PAIN LEVEL 4 -6; Start 08/24/17 at 07:30 Morphine Sulfate (morphine) 2 mg Q4H PRN IV PAIN LEVEL 7-10 Last administered on 08/27/17 03:38; Admin Dose 2 MG; Start 08/24/17 at 07:30 Lorazepam (Ativan) 1 mg Q2H PRN IV ANXIETY Last administered on 08/27/17 04:00 ; Admin Dose 1 MG; Start 08/24/17 at 07:30 Docusate Sodium (Colace) 100 mg Q12H PRN PO CONSTIPATION; Start 08/24/17 at 07: 30 Magnesium Hydroxide (Milk Of Mag) 30 ml DAILY PRN PO CONSTIPATION; Start at 07:30 Bisacodyl (Dulcolax) 5 mg DAILY PRN PO CONSTIPATION; Start 08/24/17 at 07:30 Bisacodyl (Dulcolax Supp) [address] CONSTIPATION; Start 08/24/17 at 07 :30 Sodium Biphosphate/ Sodium Phosphate (Fleet Enema) [address] CONSTIPATION; Start 08/24/17 at 07:30 Eye Lubricant (Artificial Tears Oph) 1 drop TID BOTH EYES Last administered on 08/26/17 20:38; Admin Dose 1 DROP; Start 08/24/17 at 09:00 Enoxaparin Sodium 40 mg 40 mg DAILY SC Last administered on 11/5/17at 08:06; Admin Dose 40 MG; Start 08/24/17 at 09:00 Piperacillin Sod/ Tazobactam Sod (Zosyn 3.375gm/ 50 ml (Pmx)) 50 ml @ 0 mls/hr Q6 IV Last administered on 08/27/17 06:02; Admin Dose 100 MLS/HR; Start at 12:00 Pantoprazole (Protonix Tab) 40 mg DAILY@06 PO Last administered on 08/27/17 05 :43; Admin Dose 40 MG; Start 08/25/17 at 06:00 Hydralazine HCl (Apresoline) 10 mg Q6H PRN IV ELEVATED BLOOD PRESSURE; Start 08/24/17 at 15:30 Levothyroxine Sodium (Synthroid) 25 mcg DAILY@06 NGT Last administered on 05:43; Admin Dose 25 MCG; Start 08/25/17 at 06:00 Acetaminophen (Tylenol Supp) [address] TEMP > 37C; Start 08/24/17 at 18 :30 Acetaminophen (Tylenol Supp) [address] Last administered on 08/26/17 12:53 ; Admin Dose 500 MG; Start 08/25/17 at 18:30 Acetaminophen (Tylenol Liquid) 500 mg Q6H PO Last administered on 08/27/17 05: 44; Admin Dose 500 MG; Start 08/25/17 at 18:30 Meperidine HCl (Demerol) 12.5 mg Q4H PRN IV POST OPERATIVE SHIVERING; Start at 18:30 Meperidine HCl (Demerol) 25 mg Q4H PRN IV POST OPERATIVE SHIVERING; Start 08/24 at 18:30 Eye Lubricant (Akwa Oint) 1 applic Q6 BOTH EYES Last administered on 08/27/17 05:52; Admin Dose 1 APPLIC; Start 08/24/17 at 18:30 Eye Lubricant (Artificial Tears Oph) 2 drop Q6 BOTH EYES Last administered on 08/27/17 05:52; Admin Dose 2 DROP; Start 08/24/17 at 18:30 Diagnostic Test (Pha) (Accu-Chek) 1 ea Q1H XX Last administered on 08/27/17 06 :00; Admin Dose 1 EA; Start 08/24/17 at 18:30 Dextrose (D50w Syringe) 25 ml Q15M PRN IV Till BS 80 mg/dL or above x2; Start 08/24/17 at 18:30 Dextrose 50 ml 50 ml Q15M PRN IV Till BS 80 mg/dL or above x2; Start 08/24/17 at 18:30 Propofol 100 ml @ 3.75 mls/hr Q12H IV Last administered on 08/27/17 08:47; Admin Dose 37.5 MLS/HR; Start 08/24/17 at 19:30 Vecuronium [place] 100 mg/ Dextrose 100 ml @ 6.25 mls/hr TITRATE IV Last administered on 08/25/17 10:44; Admin Dose 2.5 MLS/HR; Start 08/25/17 at 10:00 Levetiracetam 100 ml @ 400 mls/hr Q12 IVPB Last administered on 08/26/17 20: 33; Admin Dose 400 MLS/HR; Start 08/25/17 at 10:00 Vancomycin HCl 1.5 gm/Sodium Chloride 250 ml @ 83.333 mls/ hr Q12H IVPB Last administered on 08/27/17 05:31; Admin Dose 83.333 MLS/HR; Start 08/26/17 at 04: 00 Norepinephrine 16 mg/Dextrose 500 ml @ 1.87 mls/hr TITRATE IV Last administered on 08/26/17 14:32; Admin Dose 22.5 MLS/HR; Start 08/26/17 at 13:30 Fentanyl (Sublimaze) 100 ml @ 2.5 mls/hr TITRATE IV ; Start 08/27/17 at 09:30 Assessment/Plan Chief Complaint/Hosp Course IMP: 1. s/p Cardiopulmonary arrest--likely due to aspiration and central airway obstruction 2. Seizure Disorder 3. Gram + bacteremia--likely contaminant 4. Possible anoxic brain injury 5. CAP vs. aspiration 6. Morbid obesity 7. DM RECS: 1. Transitioning off hypothermia protocol 2. Anti-epileptic Rx and propofol gtt 3. Vent support, switch to volume control ventilation. Decreased rate and tidal volume. Decrease sedation. 4. Abx 5. F/U Cx's 6. DVT and GI prophylaxis 7. EEG and neuro evaluation. 8. Prognosis is poor 35 min cc time Problems: JULIANA WASHINGTON MD, [facility] Aug 27, 2017 09:51
--- NOTE | 2017-08-27 09:55 | RADRPT ---
PROCEDURE: Chest 1 views. CLINICAL INDICATION: Shortness of breath. TECHNIQUE: AP views of the chest was obtained. COMPARISON: August 27, 2017 at 04:51 a.m. FINDINGS: The heart is large. Endotracheal and nasogastric tubes are stable and appear in grossly appropriate location. Central pulmonary vascular congestion and interstitial prominence in both lungs is unchang ed. Retrocardiac opacity is stable. Patchy right lower lung infiltrates and small right pleural effu natalie are stable. The osseous structures are stable. IMPRESSION: Cardiomegaly . Stable central pulmonary vascular congestion and mild interstitial prominence in both lungs. Retrocardiac opacity that may reflect left lower lobe atelectasis or infiltrate combined with small pleural effusion. Stable right lower lobe infiltrates and small right pleural effusion. RPTAT: AA .Jethro Tejada MD, Date Time Electronically viewed and signed by .Jethro Tejada MD, on 08/27/2017 09:55 .P/
[2017-08-27] MEDS: FENTAnyl (DRIP) 1000 mcg/100mL 100 ML IV SCH ×2 (10:00→16:30)
[2017-08-27] MEDS: ENOXAPARIN 40 MG/0.4 ML SYG SC SCH (10:29)
--- NOTE | 2017-08-27 10:49 | RADRPT ---
PROCEDURE: XR Chest. CLINICAL INDICATION: Check endotracheal tube position. TECHNIQUE: Single frontal view. COMPARISON: 08/27/2017. 0941 hours. FINDINGS: The endotracheal tube is in satisfactory position approximately 4 cm above the ne[place]. The nasogastr ic tube tip is in the stomach. There is atelectasis at the lung bases with left worse than right. Th e lungs are otherwise clear. The heart is enlarged. There are probable small bilateral pleural effusion. There is no pneumothorax. IMPRESSION: 1. Endotracheal tube approximately 5 cm above the ne[place]. 2. No other change from the prior chest radiograph none earlier the same day. RPTAT: QQ .Niels Stanton MD, MD Date Time Electronically viewed and signed by .Niels Stanton MD, on 08/27/2017 10:49 .R/
[2017-08-27] MEDS: ASPIRIN 81 MG TAB PO SCH (11:00)
[2017-08-27] MEDS: DEXTROSE 5%-0.45% NACL 1,000 ML IV SCH ×2 (11:23→22:00)
[2017-08-27 11:53] LABS: AADO2 Arterial 615.9 mmHg (7.0-24.0); Allen Test ACCEPTAB; Arterial Base Excess 1.1 mmol/L (-3.0-3); Arterial COHb 0.3 % (0.0-3.0); Arterial Fraction of Oxyhgb 87.8 % (93.0-99.0); Arterial HCO3 25.3 mmol/L (22.0-26.0); Arterial MetHb 0.4 % (0.0-1.5); Arterial Total Hemglobin 20.2 g/dl (12.0-18.0); MODE VENT - AC
--- NOTE | 2017-08-27 11:54 | CONS ---
Date/Time of Note Date/Time of Note DATE: 08/27/17 TIME: 11:50 Assessment/Plan Assessment/Plan Chief Complaint/Hosp Course IMPRESSION: 1. Pulseless electrical activity cardiac arrest.-on levophed still. EF 50% by echo this admit 2. Abnormal electrocardiogram with diffuse ST depressions but in the setting of cardiac arrest. 3. Hypotension-on levophed 4. Tachycardia consistent with sinus tachycardia. 5. Encephalopathy. 6. History of flu-like illness. 7. Hypothyroidism. 8. Hematuria. 9. 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 Lactic acidosis. 11. Leukocytosis. 12. Positive troponin-minimal in setting of cardiac arrest and now trended negative 14. bactremia Recc: -Telle in ICU -wean pressors as tolerated -continue abx's and f/u cx data -Follow MS closely -start asa Problems: Consultation Date/Type/Reason Admit Date/Time Aug 24, 2017 at 07:05 Initial Consult Date 08/27/17 Type of Consultation: cardiology Reason for Consultation cardiac arrest Referring Provider: MIKE LUONG MD Exam/Review of Systems Vital Signs Vitals Vital Signs Date Time Temp Pulse Resp B/P Pulse Ox O2 Delivery O2 Flow Rate FiO2 08/27/17 11:25 99 26 89 100 08/27/17 06:00 102/68 08/27/17 04:00 99.8 Mechanical Ventilator 08/24/17 16:00 10.0 Intake and Output 08/26/17 08/26/17 08/27/17 15:00 23:00 07:00 Intake Total 861.22 ml 665.96 ml 776.8 ml Output Total 355 ml 383 ml 228 ml Balance 506.22 ml 282.96 ml 548.8 ml Exam Review of Systems: CONSTITUTIONAL: No fevers, chills. PULMONARY: No sob CARDIOVASCULAR: No chest pain/palpitations GASTROINTESTINAL: No nausea/vomiting. GENITOURINARY: No hematuria/dysuria. MUSCULOSKELETAL: No myagias/arthalgias. PSYCHIATRIC: The patient denies depression. NEUROLOGIC: No weakness Constitutional: alert Psych: no complaints Head: normocephalic ENMT: mucosa pink and moist, nl external ears & nose Neck: jvd (9 cm water), supple Respiratory: diminished breath sounds (at bases/B) Cardiovascular: regular rate and rhythm Gastrointestinal: non-tender, soft Musculoskeletal: muscle tone (normal) Extremities: edema (trace/B) Results Result Diagram: 08/27/17 0358 08/27/17 0358 Results 24 hrs Laboratory Tests Test 08/26/17 12:50 08/26/17 13:53 08/26/17 14:05 08/26/17 15:50 Bedside Glucose 101 124 97 Blood Gas Specimen Source Blood arterial Arterial Blood Date Drawn 08/26/2017 2:00:06 PM Arterial Blood pH (Temp corrected) 7.442 Arterial Blood pCO2 (Temp correct) 39.4 Arterial Blood pO2 (Temp corrected) 48.0 *L Arterial Blood HCO3 26.3 H Arterial Blood Base Excess 2.2 Arterial Blood Oxygen Saturation 82.1 L Kar Test ACCEPTAB Arterial Blood Gas Puncture Site Left Radial Arterial Blood Carboxyhemoglobin 0.1 Arterial Blood Methemoglobin 0.4 Blood Gas A-a O2 Differential 625.6 H Oxyhemoglobin Percent 81.7 L Total Hemoglobin 21.6 H Blood Gas Temperature 37.0 Blood Gas Respiration Rate 26.0 Blood Gas Actual Respiration Rate 26 Blood Gas Modality VENT - AC FiO2 100.0 Blood Gas Tidal Volume 600.0 Blood Gas Low PEEP Setting 14.0 Blood Gas Critical Value Read Back Markos PRAJAPATI RN Blood Gas Notified Whom RDIX Blood Gas Notified Time 08/26/2017 2:14:49 PM Test 08/26/17 16:39 08/26/17 17:51 08/26/17 19:31 08/26/17 20:37 Bedside Glucose 140 110 105 109 Test 08/26/17 22:03 08/26/17 22:58 08/26/17 23:31 08/27/17 00:56 Bedside Glucose 91 108 94 90 Test 08/27/17 01:00 08/27/17 01:57 08/27/17 02:57 08/27/17 03:58 Blood Gas Specimen Source Blood arterial Arterial Blood Date Drawn 08/27/2017 1:00:44 AM Arterial Blood pH (Temp corrected) 7.411 Arterial Blood pCO2 (Temp correct) 42.5 Arterial Blood pO2 (Temp corrected) 53.2 *L Arterial Blood HCO3 26.4 H Arterial Blood Base Excess 1.4 Arterial Blood Oxygen Saturation 84.2 L Kar Test ACCEPTAB Arterial Blood Gas Puncture Site Left Radial Arterial Blood Carboxyhemoglobin 0.1 Arterial Blood Methemoglobin 0.4 Blood Gas A-a O2 Differential 617.3 H Oxyhemoglobin Percent 83.8 L Total Hemoglobin 21.1 H Blood Gas Temperature 37.0 Blood Gas Respiration Rate 26.0 Blood Gas Actual Respiration Rate 36 Blood Gas Modality VENT - PC FiO2 100.0 Blood Gas High PEEP Setting 30.0 Blood Gas Low PEEP Setting 14.0 Blood Gas Critical Value Read Back СВЕТЛАНА CACERES Blood Gas Notified Whom [place] Blood Gas Notified Time 08/27/2017 1:16:48 AM Bedside Glucose 101 90 White Blood Count 16.0 #H Red Blood Count 7.20 H Hemoglobin 20.1 H Hematocrit 65.7 H Mean Corpuscular Volume 91.3 Mean Corpuscular Hemoglobin 27.9 L Mean Corpuscular Hemoglobin Concent 30.6 L Red Cell Distribution Width 21.1 H Platelet Count 194 # Mean Platelet Volume 10.1 Neutrophils % 80.6 H Lymphocytes % 11.3 L Monocytes % 6.6 Eosinophils % 0.6 Basophils % 0.4 Nucleated Red Blood Cells % 0.2 H Neutrophils # 12.9 H Lymphocytes # 1.8 Monocytes # 1.1 H Eosinophils # 0.1 Basophils # 0.1 Nucleated Red Blood Cells # 0.0 Sodium Level 141 Potassium Level 4.3 Chloride Level 99 Carbon Dioxide Level 29 Anion Gap 17 H Blood Urea Nitrogen 12 Creatinine 1.34 H Glucose Level 117 Calcium Level 8.1 L Magnesium Level 2.3 Vancomycin Level Trough 14.3 Test 08/27/17 05:00 08/27/17 05:02 08/27/17 06:06 08/27/17 08:49 Blood Gas Specimen Source Blood arterial Arterial Blood Date Drawn 08/27/2017 4:50:51 AM Arterial Blood pH (Temp corrected) 7.335 L Arterial Blood pCO2 (Temp correct) 49.0 H Arterial Blood pO2 (Temp corrected) 58.9 L Arterial Blood HCO3 25.5 Arterial Blood Base Excess -1.2 Arterial Blood Oxygen Saturation 86.5 L Kar Test ACCEPTAB Arterial Blood Gas Puncture Site Left Radial Arterial Blood Carboxyhemoglobin 0.3 Arterial Blood Methemoglobin 0.4 Blood Gas A-a O2 Differential 605.1 H Oxyhemoglobin Percent 85.9 L Total Hemoglobin 21.5 H Blood Gas Temperature 37.0 Blood Gas Respiration Rate 26.0 Blood Gas Actual Respiration Rate 52 Blood Gas Modality VENT - PC FiO2 100.0 Blood Gas Tidal Volume 600.0 Blood Gas Low PEEP Setting 14.0 Blood Gas Inspiratory Pressure 49.0 Blood Gas Notified Whom MH Blood Gas Notified Time 08/27/2017 5:02:21 AM Bedside Glucose 87 100 114 Test 08/27/17 10:36 Bedside Glucose 111 Medications Medications Current Medications Fentanyl (Sublimaze) 25 mcg Q10M PRN IV SEDATION; Start 08/24/17 at 07:00 Flumazenil (Romazicon) 0.2 mg Q1M PRN IV BENZODIAZEPINE OVERDOSE; Start at 07:30 Naloxone HCl (Narcan) 0.4 mg Q3M PRN IV DECREASED REPIRATORY RATE; Start at 07:30 Ondansetron HCl (Zofran Inj) 4 mg Q6H PRN IV NAUSEA AND/OR VOMITING; Start 08/24/17 at 07:30 Nitroglycerin (Nitroglycerin (Sl Tab) 0.4 Mg) 1 tab Q5M PRN SL CHEST PAIN; Start 08/24/17 at 07:30 Acetaminophen (Tylenol Liquid) 650 mg Q6H PRN PO PAIN LEVEL 1-3 OR FEVER; Start 08/24/17 at 07:30 Acetaminophen (Tylenol Tab) 650 mg Q6H PRN PO PAIN LEVEL 1-3 OR FEVER; Start 08/24/17 at 07:30 Acetaminophen (Tylenol Supp) 650 mg Q4H PRN [place] PAIN LEVEL 1-3 OR TEMP > 37C; Start 08/24/17 at 07:30 Ibuprofen (Motrin) 600 mg Q6H PRN PO PAIN LEVEL 1-3 OR FEVER; Start 08/24/17 at 07:30 Acetaminophen/ Hydrocodone Bitart ([place] (5/325)) 1 tab Q6H PRN PO PAIN LEVEL 4 -6; Start 08/24/17 at 07:30 Morphine Sulfate (morphine) 2 mg Q4H PRN IV PAIN LEVEL 7-10 Last administered on 08/27/17 03:38; Admin Dose 2 MG; Start 08/24/17 at 07:30 Lorazepam (Ativan) 1 mg Q2H PRN IV ANXIETY Last administered on 08/27/17 04:00 ; Admin Dose 1 MG; Start 08/24/17 at 07:30 Docusate Sodium (Colace) 100 mg Q12H PRN PO CONSTIPATION; Start 08/24/17 at 07: 30 Magnesium Hydroxide (Milk Of Mag) 30 ml DAILY PRN PO CONSTIPATION; Start at 07:30 Bisacodyl (Dulcolax) 5 mg DAILY PRN PO CONSTIPATION; Start 08/24/17 at 07:30 Bisacodyl (Dulcolax Supp) 10 mg DAILY PRN [place] CONSTIPATION; Start 08/24/17 at 07 :30 Sodium Biphosphate/ Sodium Phosphate (Fleet Enema) 133 ml DAILY PRN [place] CONSTIPATION; Start 08/24/17 at 07:30 Eye Lubricant (Artificial Tears Oph) 1 drop TID BOTH EYES Last administered on 08/27/17 09:00; Admin Dose 1 DROP; Start 08/24/17 at 09:00 Enoxaparin Sodium 40 mg 40 mg DAILY SC Last administered on 08/27/17 10:29; Admin Dose 40 MG; Start 08/24/17 at 09:00 Piperacillin Sod/ Tazobactam Sod (Zosyn 3.375gm/ 50 ml (Pmx)) 50 ml @ 0 mls/hr Q6 IV Last administered on 08/27/17 06:02; Admin Dose 100 MLS/HR; Start at 12:00 Pantoprazole (Protonix Tab) 40 mg DAILY@06 PO Last administered on 08/27/17 05 :43; Admin Dose 40 MG; Start 08/25/17 at 06:00 Hydralazine HCl (Apresoline) 10 mg Q6H PRN IV ELEVATED BLOOD PRESSURE; Start 08/24/17 at 15:30 Levothyroxine Sodium (Synthroid) 25 mcg DAILY@06 NGT Last administered on 05:43; Admin Dose 25 MCG; Start 08/25/17 at 06:00 Acetaminophen (Tylenol Supp) 500 mg Q6H [place] Last administered on 08/27/17 10:28 ; Admin Dose 500 MG; Start 08/25/17 at 18:30 Acetaminophen (Tylenol Liquid) 500 mg Q6H PO Last administered on 08/27/17 05: 44; Admin Dose 500 MG; Start 08/25/17 at 18:30 Meperidine HCl (Demerol) 12.5 mg Q4H PRN IV POST OPERATIVE SHIVERING; Start at 18:30 Meperidine HCl (Demerol) 25 mg Q4H PRN IV POST OPERATIVE SHIVERING; Start 08/24 at 18:30 Eye Lubricant (Akwa Oint) 1 applic Q6 BOTH EYES Last administered on 08/27/17 10:29; Admin Dose 1 APPLIC; Start 08/24/17 at 18:30 Eye Lubricant (Artificial Tears Oph) 2 drop Q6 BOTH EYES Last administered on 08/27/17 05:52; Admin Dose 2 DROP; Start 08/24/17 at 18:30 Diagnostic Test (Pha) (Accu-Chek) 1 ea Q1H XX Last administered on 08/27/17 10 :55; Admin Dose 1 EA; Start 08/24/17 at 18:30 Dextrose (D50w Syringe) 25 ml Q15M PRN IV Till BS 80 mg/dL or above x2; Start 08/24/17 at 18:30 Dextrose 50 ml 50 ml Q15M PRN IV Till BS 80 mg/dL or above x2; Start 08/24/17 at 18:30 Propofol 100 ml @ 3.75 mls/hr Q12H IV Last administered on 08/27/17 08:47; Admin Dose 37.5 MLS/HR; Start 08/24/17 at 19:30 Vecuronium [place] 100 mg/ Dextrose 100 ml @ 6.25 mls/hr TITRATE IV Last administered on 08/25/17 10:44; Admin Dose 2.5 MLS/HR; Start 08/25/17 at 10:00 Levetiracetam 100 ml @ 400 mls/hr Q12 IVPB Last administered on 08/26/17 20: 33; Admin Dose 400 MLS/HR; Start 08/25/17 at 10:00 Norepinephrine 16 mg/Dextrose 500 ml @ 1.87 mls/hr TITRATE IV Last administered on 08/26/17 14:32; Admin Dose 22.5 MLS/HR; Start 08/26/17 at 13:30 Fentanyl 100 ml @ 2.5 mls/hr TITRATE IV ; Start 08/27/17 at 09:30 Vancomycin HCl 1.25 gm/Sodium Chloride 250 ml @ 83.333 mls/ hr Q12H IVPB ; Start 08/27/17 at 18:00 Dextrose/Sodium Chloride (D5-1/2ns) 1,000 ml @ 70 mls/hr [id number] IV Last administered on 08/27/17t 11:23; Admin Dose 70 MLS/HR; Start 08/27/17 at 11:00 Insulin Glargine (Lantus) 15 unit DAILY@08 SC ; Start 08/28/17 at 11:00 SKYLAR ABDALLA Aug 27, 2017 11:54
--- NOTE | 2017-08-27 12:37 | PN ---
DATE: 08/27/2017 SUBJECTIVE: No acute changes. The patient remains intubated, on low dose Levophed. He is also sed ated with Diprivan and fentanyl. Temperature, spiking low-grade fevers with a T-max of 100.8, T-cur rent 99.8, pulse 112, respirations 30, blood pressure 102/68, saturation 89% on 100% FIO2. LABORATORY DATA: WBC 16, H and H 20.1 and 65.7, platelets 194, neutrophils 80.6, BUN 12, creatinine 1.34. MICROBIOLOGY: Blood cultures on admission grew coagulase-negative staph species. Repeat cultures n egative. Sputum culture negative. Urine culture negative. DIAGNOSTICS: Chest x-ray revealed atelectasis at the lung bases with left worse than right. INDWELLINGS: Endotracheal tube, NG tube, [place] catheter, femoral triple-lumen catheter. ANTIMICROBIALS: The patient is on: 1. Vancomycin. 2. Zosyn. PHYSICAL EXAMINATION: GENERAL: This is a morbidly obese, middle-aged man who is in no distress. HEENT: Head atraumatic, normocephalic. Sclerae anicteric. Buccal mucosa dry. NECK: Supple. CHEST: Rise symmetrical. Breath sounds diminished to bases. HEART: S1, S2. ABDOMEN: Soft. Bowel tones hypoactive. EXTREMITIES: Bilateral edema. ASSESSMENT: 1. Shock, likely multifactorial. 2. Acute respiratory failure, possibly aspiration. 3. Pneumonia. 4. Status post cardiopulmonary arrest. 5. Staphylococcus bacteremia, likely contaminant. 6. Possible anoxic brain injury. 7. Diabetes. PLAN: The patient remains hemodynamically unstable. He is being followed by multiple consultants p ending sputum cultures. Continue antibotics. Dictated By: BEKA WATKINS CHILD THERAPIST for JORDAN CHILDS MD NI/NTS Conf#: [id number] DID#: [id number]
[2017-08-27] MEDS: INSULIN GLARGINE [LANtus] 3 ML PEN SC SCH (13:27)
--- NOTE | 2017-08-27 16:23 | QN ---
Documentation Comment I/O removal: I was called out of the emergency department to the ICU for removal of an intraosseous line. The patient had an IO in the right knee. I used steady pressure was easily able to remove the IOL without difficulty. There was no bleeding. A dressing was applied. CAROLANN MONTES MD Aug 27, 2017 16:23
[2017-08-27] MEDS ORDERED: LIDOCAINE 1% (MPF) 5 ML VIAL SC ONE (16:30)
--- NOTE | 2017-08-27 23:26 | PN ---
Date/Time of Note Date/Time of Note DATE: 08/27/17 TIME: 23:24 Assessment/Plan VTE Prophylaxis VTE Prophylaxis Intervention: other Lines/Catheters IV Catheter Type (from Nrs): Central Line Central line still needed: Yes Urinary Cath still in place: Yes Reason Cath still needed: other (indicate) Assessment/Plan Chief Complaint/Hosp Course 1. s/p cardiac arrest 2. Sepsis with Gram + bacteremia 3. Morbid obesity 4. Hypertension hx 5. history of flu like sickness before admission 6. Anemia 7. Seizure Disorder 8. Possible anoxic brain injury. 7. Underlying diabetes mellitus. 8 obesity plan antibiotic per pull and cardio and neuro Problems: Subjective 24 Hr Interval Summary Subjective hx not possible: other (on vent sedated) Exam/Review of Systems Vital Signs Vitals Vital Signs Date Time Temp Pulse Resp B/P Pulse Ox O2 Delivery O2 Flow Rate FiO2 08/27/17 23:00 115 22 121/65 89 08/27/17 20:00 99.7 08/27/17 14:30 Mechanical Ventilator 08/27/17 12:00 100 08/24/17 16:00 10.0 Intake and Output 08/26/17 08/26/17 08/27/17 15:00 23:00 07:00 Intake Total 861.22 ml 665.96 ml 776.8 ml Output Total 355 ml 383 ml 272 ml Balance 506.22 ml 282.96 ml 504.8 ml Exam Respiratory: diminished breath sounds Cardiovascular: regular rate and rhythm Gastrointestinal: bowel sounds (+), soft Extremities: edema (+) Neurological: other (sedated) Results Result Diagram: 08/27/17 0358 08/27/17 0358 Results 24 hrs Laboratory Tests Test 08/26/17 23:31 08/27/17 00:56 08/27/17 01:00 08/27/17 01:57 Bedside Glucose 94 90 101 Blood Gas Specimen Source Blood arterial Arterial Blood Date Drawn 08/27/2017 1:00:44 AM Arterial Blood pH (Temp corrected) 7.411 Arterial Blood pCO2 (Temp correct) 42.5 Arterial Blood pO2 (Temp corrected) 53.2 *L Arterial Blood HCO3 26.4 H Arterial Blood Base Excess 1.4 Arterial Blood Oxygen Saturation 84.2 L Kar Test ACCEPTAB Arterial Blood Gas Puncture Site Left Radial Arterial Blood Carboxyhemoglobin 0.1 Arterial Blood Methemoglobin 0.4 Blood Gas A-a O2 Differential 617.3 H Oxyhemoglobin Percent 83.8 L Total Hemoglobin 21.1 H Blood Gas Temperature 37.0 Blood Gas Respiration Rate 26.0 Blood Gas Actual Respiration Rate 36 Blood Gas Modality VENT - PC FiO2 100.0 Blood Gas High PEEP Setting 30.0 Blood Gas Low PEEP Setting 14.0 Blood Gas Critical Value Read Back [email or web address] CACERES Blood Gas Notified Whom MA Blood Gas Notified Time 08/27/2017 1:16:48 AM Test 08/27/17 02:57 08/27/17 03:58 08/27/17 05:00 08/27/17 05:02 Bedside Glucose 90 87 White Blood Count 16.0 #H Red Blood Count 7.20 H Hemoglobin 20.1 H Hematocrit 65.7 H Mean Corpuscular Volume 91.3 Mean Corpuscular Hemoglobin 27.9 L Mean Corpuscular Hemoglobin Concent 30.6 L Red Cell Distribution Width 21.1 H Platelet Count 194 # Mean Platelet Volume 10.1 Neutrophils % 80.6 H Lymphocytes % 11.3 L Monocytes % 6.6 Eosinophils % 0.6 Basophils % 0.4 Nucleated Red Blood Cells % 0.2 H Neutrophils # 12.9 H Lymphocytes # 1.8 Monocytes # 1.1 H Eosinophils # 0.1 Basophils # 0.1 Nucleated Red Blood Cells # 0.0 Sodium Level 141 Potassium Level 4.3 Chloride Level 99 Carbon Dioxide Level 29 Anion Gap 17 H Blood Urea Nitrogen 12 Creatinine 1.34 H Glucose Level 117 Calcium Level 8.1 L Magnesium Level 2.3 Vancomycin Level Trough 14.3 Blood Gas Specimen Source Blood arterial Arterial Blood Date Drawn 08/27/2017 4:50:51 AM Arterial Blood pH (Temp corrected) 7.335 L Arterial Blood pCO2 (Temp correct) 49.0 H Arterial Blood pO2 (Temp corrected) 58.9 L Arterial Blood HCO3 25.5 Arterial Blood Base Excess -1.2 Arterial Blood Oxygen Saturation 86.5 L Kar Test ACCEPTAB Arterial Blood Gas Puncture Site Left Radial Arterial Blood Carboxyhemoglobin 0.3 Arterial Blood Methemoglobin 0.4 Blood Gas A-a O2 Differential 605.1 H Oxyhemoglobin Percent 85.9 L Total Hemoglobin 21.5 H Blood Gas Temperature 37.0 Blood Gas Respiration Rate 26.0 Blood Gas Actual Respiration Rate 52 Blood Gas Modality VENT - PC FiO2 100.0 Blood Gas Tidal Volume 600.0 Blood Gas Low PEEP Setting 14.0 Blood Gas Inspiratory Pressure 49.0 Blood Gas Notified Whom MH Blood Gas Notified Time 08/27/2017 5:02:21 AM Test 08/27/17 06:06 08/27/17 08:49 08/27/17 10:36 08/27/17 11:22 Bedside Glucose 100 114 111 Blood Gas Specimen Source Blood arterial Arterial Blood Date Drawn 08/27/2017 11:40:49 AM Arterial Blood pH (Temp corrected) 7.426 Arterial Blood pCO2 (Temp correct) 39.4 Arterial Blood pO2 (Temp corrected) 57.7 L Arterial Blood HCO3 25.3 Arterial Blood Base Excess 1.1 Arterial Blood Oxygen Saturation 88.4 L Kar Test ACCEPTAB Arterial Blood Gas Puncture Site Right Radial Arterial Blood Carboxyhemoglobin 0.3 Arterial Blood Methemoglobin 0.4 Blood Gas A-a O2 Differential 615.9 H Oxyhemoglobin Percent 87.8 L Total Hemoglobin 20.2 H Blood Gas Temperature 37.0 Blood Gas Respiration Rate 26.0 Blood Gas Actual Respiration Rate 26 Blood Gas Modality VENT - AC FiO2 100.0 Blood Gas Tidal Volume 500.0 Blood Gas Low PEEP Setting 14.0 Blood Gas Notified Whom JLD Blood Gas Notified Time 08/27/2017 11:53:34 AM Test 08/27/17 13:26 08/27/17 17:23 Bedside Glucose 116 112 Medications Medications Current Medications Flumazenil (Romazicon) 0.2 mg Q1M PRN IV BENZODIAZEPINE OVERDOSE; Start at 07:30 Naloxone HCl (Narcan) 0.4 mg Q3M PRN IV DECREASED REPIRATORY RATE; Start at 07:30 Ondansetron HCl (Zofran Inj) 4 mg Q6H PRN IV NAUSEA AND/OR VOMITING; Start 08/24/17 at 07:30 Nitroglycerin (Nitroglycerin (Sl Tab) 0.4 Mg) 1 tab Q5M PRN SL CHEST PAIN; Start 08/24/17 at 07:30 Acetaminophen (Tylenol Liquid) 650 mg Q6H PRN PO PAIN LEVEL 1-3 OR FEVER; Start 08/24/17 at 07:30 Acetaminophen (Tylenol Tab) 650 mg Q6H PRN PO PAIN LEVEL 1-3 OR FEVER; Start 08/24/17 at 07:30 Acetaminophen (Tylenol Supp) 650 mg Q4H PRN IN PAIN LEVEL 1-3 OR TEMP > 37C; Start 08/24/17 at 07:30 Ibuprofen (Motrin) 600 mg Q6H PRN PO PAIN LEVEL 1-3 OR FEVER; Start 08/24/17 at 07:30 Acetaminophen/ Hydrocodone Bitart ([place] (5/325)) 1 tab Q6H PRN PO PAIN LEVEL 4 -6; Start 08/24/17 at 07:30 Morphine Sulfate (morphine) 2 mg Q4H PRN IV PAIN LEVEL 7-10 Last administered on 08/27/17 03:38; Admin Dose 2 MG; Start 08/24/17 at 07:30 Lorazepam (Ativan) 1 mg Q2H PRN IV ANXIETY Last administered on 08/27/17 04:00 ; Admin Dose 1 MG; Start 08/24/17 at 07:30 Docusate Sodium (Colace) 100 mg Q12H PRN PO CONSTIPATION; Start 08/24/17 at 07: 30 Magnesium Hydroxide (Milk Of Mag) 30 ml DAILY PRN PO CONSTIPATION; Start at 07:30 Bisacodyl (Dulcolax) 5 mg DAILY PRN PO CONSTIPATION; Start 08/24/17 at 07:30 Bisacodyl (Dulcolax Supp) 10 mg DAILY PRN IN CONSTIPATION; Start 08/24/17 at 07 :30 Sodium Biphosphate/ Sodium Phosphate (Fleet Enema) 133 ml DAILY PRN IN CONSTIPATION; Start 08/24/17 at 07:30 Eye Lubricant (Artificial Tears Oph) 1 drop TID BOTH EYES Last administered on 08/27/17 13:28; Admin Dose 1 DROP; Start 08/24/17 at 09:00 Enoxaparin Sodium 40 mg 40 mg DAILY SC Last administered on 08/27/17 10:29; Admin Dose 40 MG; Start 08/24/17 at 09:00 Piperacillin Sod/ Tazobactam Sod (Zosyn 3.375gm/ 50 ml (Pmx)) 50 ml @ 0 mls/hr Q6 IV Last administered on 08/27/17 12:26; Admin Dose 200 MLS/HR; Start at 12:00 Pantoprazole (Protonix Tab) 40 mg DAILY@06 PO Last administered on 08/27/17 05 :43; Admin Dose 40 MG; Start 08/25/17 at 06:00 Hydralazine HCl (Apresoline) 10 mg Q6H PRN IV ELEVATED BLOOD PRESSURE; Start 08/24/17 at 15:30 Levothyroxine Sodium (Synthroid) 25 mcg DAILY@06 NGT Last administered on 05:43; Admin Dose 25 MCG; Start 08/25/17 at 06:00 Acetaminophen (Tylenol Supp) 500 mg Q6H [place] Last administered on 08/27/17 12:27 ; Admin Dose 500 MG; Start 08/25/17 at 18:30 Acetaminophen (Tylenol Liquid) 500 mg Q6H PO Last administered on 08/27/17 22: 55; Admin Dose 500 MG; Start 08/25/17 at 18:30 Meperidine HCl (Demerol) 12.5 mg Q4H PRN IV POST OPERATIVE SHIVERING; Start at 18:30 Meperidine HCl (Demerol) 25 mg Q4H PRN IV POST OPERATIVE SHIVERING; Start 08/24 at 18:30 Eye Lubricant (Akwa Oint) 1 applic Q6 BOTH EYES Last administered on 08/27/17 10:29; Admin Dose 1 APPLIC; Start 08/24/17 at 18:30 Eye Lubricant 2 drop 2 drop Q6 BOTH EYES Last administered on 08/27/17 12:26; Admin Dose 2 DROP; Start 08/24/17 at 18:30 Propofol 100 ml @ 3.75 mls/hr Q12H IV Last administered on 08/27/17 23:19; Admin Dose 37.5 MLS/HR; Start 08/24/17 at 19:30 Vecuronium [place] 100 mg/ Dextrose 100 ml @ 6.25 mls/hr TITRATE IV Last administered on 08/25/17 10:44; Admin Dose 2.5 MLS/HR; Start 08/25/17 at 10:00 Levetiracetam 100 ml @ 400 mls/hr Q12 IVPB Last administered on 08/26/17 20: 33; Admin Dose 400 MLS/HR; Start 08/25/17 at 10:00 Norepinephrine 16 mg/Dextrose 500 ml @ 1.87 mls/hr TITRATE IV Last administered on 08/26/17 14:32; Admin Dose 22.5 MLS/HR; Start 08/26/17 at 13:30 Fentanyl 100 ml @ 2.5 mls/hr TITRATE IV Last administered on 08/27/17 16:30; Admin Dose 9.5 MLS/HR; Start 08/27/17 at 09:30 Vancomycin HCl 1.25 gm/Sodium Chloride 250 ml @ 83.333 mls/ hr Q12H IVPB ; Start 08/27/17 at 18:00 Dextrose/Sodium Chloride (D5-1/2ns) 1,000 ml @ 70 mls/hr [id number] IV Last administered on 08/27/17 11:23; Admin Dose 70 MLS/HR; Start 08/27/17 at 11:00 Aspirin (Aspirin) 81 mg DAILY PO Last administered on 08/27/17 11:00; Admin Dose 81 MG; Start 08/28/17 at 09:00 Insulin Glargine (Lantus) 15 unit DAILY@08 SC Last administered on 08/27/17 13 :27; Admin Dose 15 UNIT; Start 08/27/17 at 13:00 MIKE LUONG MD Aug 27, 2017 23:26
[2017-08-28] VITALS (75 sets, daily range): BP systolic 101–160; BP diastolic 55–100; PULSE 98–124; RESP 19–42
[2017-08-28] MEDS: ACETAMINOPHEN 650 MG SUPP PR SCH ×4 (00:30→18:30)
[2017-08-28] MEDS: ACETAMINOPHEN 650MG/20.3ML CUP PO SCH ×4 (00:30→18:16)
[2017-08-28] MEDS: PROPOFOL 100 ML IV SCH ×9 (00:54→23:13)
[2017-08-28] MEDS: IPRATROPIUM (HFA) 12.9 GM INHALER INH SCH ×6 (01:37→21:24)
[2017-08-28] MEDS: ALBUTEROL HFA 8 GM INHALER INH SCH ×6 (01:37→21:24)
[2017-08-28 05:21] LABS: BASOPHILS % 0.3 % (0.0-2.0); EOSINOPHILS # 0.1 10^3/ul (0.0-0.5); EOSINOPHILS % 1.2 % (0.0-7.0); HEMATOCRIT 55.4 % (42.0-52.0); HEMOGLOBIN 16.7 g/dl (14.0-18.0); LYMPHOCYTES # 1.3 10^3/ul (0.8-2.9); LYMPHOCYTES % 10.6 % (15.0-51.0); MEAN CORPUSCULAR HEMOGLOBIN 27.1 pg (29.0-33.0); MEAN CORPUSCULAR HGB CONC 30.1 g/dl (32.0-37.0); MEAN CORPUSCULAR VOLUME 89.8 fl (82.0-101.0); MEAN PLATELET VOLUME 10.9 fl (7.4-10.4); MONOCYTE # 0.7 10^3/ul (0.3-0.9); MONOCYTES % 6.1 % (0.0-11.0); NEUTROPHIL # 9.9 10^3/ul (1.6-7.5); NEUTROPHILS % 81.5 % (39.0-77.0); NUCLEATED RED BLOOD CELLS% 0.2 /100WBC (0.0-0.0); PLATELET COUNT 141 10^3/UL (140-415); RED BLOOD COUNT 6.17 10^6/ul (4.70-6.10); RED CELL DISTRIBUTION WIDTH 20.5 % (11.5-14.5); WHITE BLOOD COUNT 12.1 10^3/ul (4.8-10.8)
[2017-08-28 05:46] LABS: CALCIUM 7.8 mg/dl (8.4-10.2); CREATININE 1.12 mg/dl (0.61-1.24); MAGNESIUM 1.8 mg/dl (1.7-2.5); PHOSPHORUS 3.6 mg/dl (2.5-4.9); POTASSIUM 3.1 mmol/L (3.5-5.1)
[2017-08-28] MEDS: VANCOMYCIN 1.25 GM in SOD CHLORIDE 0.9% 250 ML IVPB SCH ×3 (06:00→18:18)
[2017-08-28] MEDS: PIPER-TAZO 3.375 GM IV (PMX) 50 ML IV SCH ×4 (06:15→18:17)
[2017-08-28] MEDS: PANTOPRAZOLE (EC) 40 MG TAB PO SCH (06:15)
[2017-08-28] MEDS: LEVOTHYROXINE 25 MCG TAB NGT SCH ×2 (06:15→09:07)
[2017-08-28] MEDS: OCULAR LUBRICANT 3.5 GM OPH OINT BOTH EYES SCH ×4 (06:17→18:17)
[2017-08-28] MEDS: ARTIFICIAL TEARS 15 ML OPH BOTH EYES SCH ×7 (06:17→20:42)
[2017-08-28] MEDS: POTASSIUM CHLORIDE 50 ML IVPB PRN ×3 (06:57→11:10)
--- NOTE | 2017-08-28 07:00 | RADRPT ---
PROCEDURE: XR Chest. CLINICAL INDICATION: Shortness of breath. TECHNIQUE: Single frontal view. COMPARISON: 08/27/2017. FINDINGS: Endotracheal tube and nasogastric tube remain in satisfactory position. There is mild atelectasis at the lung bases with left worse than right, unchanged. The lungs are otherwise clear. The heart is enlarged. There are probable small bilateral pleural effusions. There is no pneumothorax. IMPRESSION: 1. No change from the 08/27/2017 chest radiograph. RPTAT: QQ .Niels Stanton MD, MD Date Time Electronically viewed and signed by .Niels Stanton MD, MD on 08/28/2017 07:00 .R/
[2017-08-28 07:56] LABS: AADO2 Arterial 612.5 mmHg (7.0-24.0); Allen Test ACCEPTAB; Arterial Base Excess 0 mmol/L (-3.0-3); Arterial COHb 0.3 % (0.0-3.0); Arterial Fraction of Oxyhgb 88.6 % (93.0-99.0); Arterial HCO3 24.8 mmol/L (22.0-26.0); Arterial MetHb 0.3 % (0.0-1.5); Arterial Total Hemglobin 18.6 g/dl (12.0-18.0); MODE VENT - AC
--- NOTE | 2017-08-28 08:37 | CONS ---
Date/Time of Note Date/Time of Note DATE: 08/28/17 TIME: 08:35 Assessment/Plan Assessment/Plan Additional Assessment/Plan 1. Pulseless electrical activity cardiac arrest.-on levophed still. EF 50% by echo this admit - now is sinus rhythm, sinus tachy 2. Abnormal electrocardiogram with diffuse ST depressions but in the setting of cardiac arrest- off levo gtt now 3. Hypotension- off levo gtt 4. Tachycardia consistent with sinus tachycardia- difficult to wean 5. Encephalopathy. 6. History of flu-like illness- on anti-BX 7. Hypothyroidism. 8. Hematuria. 9. 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 Lactic acidosis. 11. Leukocytosis. 12. Positive troponin-minimal in setting of cardiac arrest and now trended negative 14. bactremia Consultation Date/Type/Reason Admit Date/Time Aug 24, 2017 at 07:05 Initial Consult Date 08/27/17 Type of Consultation: cardiology Referring Provider: MIKE LUONG MD 24 HR Interval Summary Free Text/Dictation NO acte events - tachy now, sinus tach - on 100% FIO2 - still desats - pulmonary follows ROS: No fever, no chills, no nausea, no vomiting, no diarrhea/constipation No recent weight changes No chest pain, no PND, no orthopnea + SOB No dizziness, blurred vision No thirst, no heat or cold intolerance (per nurse) Exam/Review of Systems Vital Signs Vitals Vital Signs Date Time Temp Pulse Resp B/P Pulse Ox O2 Delivery O2 Flow Rate FiO2 08/28/17 06:30 104 28 117/70 88 08/28/17 05:27 100 08/28/17 04:00 99.8 Mechanical Ventilator 08/24/17 16:00 10.0 Intake and Output 08/27/17 08/27/17 08/28/17 15:00 23:00 07:00 Intake Total 0 ml 472.5 ml Output Total 198 ml 133 ml 223 ml Balance -198 ml 339.5 ml -223 ml Exam General: WN/WD/NAD, AOx 0 HEENT: Unicetric/atraumatic/EOMI (does not follow commands) NECK: JVD elevated, no thyromegaly - intubated Lymph: no lymphadenopathy HEART: regular with no S3, II/ systolic murmur at apex LUNGS: Coarse sounds ABD: soft, NT, ND, +BS : Intact Neuro: non focal SKIN: chronic changes EXT: + edema Results Result Diagram: 08/28/17 0320 08/28/17 0425 Results 24 hrs Laboratory Tests Test 08/27/17 08:49 08/27/17 10:36 08/27/17 11:22 08/27/17 13:26 Bedside Glucose 114 111 116 Blood Gas Specimen Source Blood arterial Arterial Blood Date Drawn 08/27/2017 11:40:49 AM Arterial Blood pH (Temp corrected) 7.426 Arterial Blood pCO2 (Temp correct) 39.4 Arterial Blood pO2 (Temp corrected) 57.7 L Arterial Blood HCO3 25.3 Arterial Blood Base Excess 1.1 Arterial Blood Oxygen Saturation 88.4 L Kar Test ACCEPTAB Arterial Blood Gas Puncture Site Right Radial Arterial Blood Carboxyhemoglobin 0.3 Arterial Blood Methemoglobin 0.4 Blood Gas A-a O2 Differential 615.9 H Oxyhemoglobin Percent 87.8 L Total Hemoglobin 20.2 H Blood Gas Temperature 37.0 Blood Gas Respiration Rate 26.0 Blood Gas Actual Respiration Rate 26 Blood Gas Modality VENT - AC FiO2 100.0 Blood Gas Tidal Volume 500.0 Blood Gas Low PEEP Setting 14.0 Blood Gas Notified Whom JLD Blood Gas Notified Time 08/27/2017 11:53:34 AM Test 08/27/17 17:23 08/28/17 03:20 08/28/17 04:25 08/28/17 07:00 Bedside Glucose 112 White Blood Count 12.1 #H Red Blood Count 6.17 H Hemoglobin 16.7 Hematocrit 55.4 H Mean Corpuscular Volume 89.8 Mean Corpuscular Hemoglobin 27.1 L Mean Corpuscular Hemoglobin Concent 30.1 L Red Cell Distribution Width 20.5 H Platelet Count 141 # Mean Platelet Volume 10.9 H Neutrophils % 81.5 H Lymphocytes % 10.6 L Monocytes % 6.1 Eosinophils % 1.2 Basophils % 0.3 Nucleated Red Blood Cells % 0.2 H Neutrophils # 9.9 H Lymphocytes # 1.3 Monocytes # 0.7 Eosinophils # 0.1 Basophils # 0.0 Nucleated Red Blood Cells # 0.0 Sodium Level 139 Potassium Level 3.1 L Chloride Level 101 Carbon Dioxide Level 30 Anion Gap 11 Blood Urea Nitrogen 15 Creatinine 1.12 Glucose Level 93 Calcium Level 7.8 L Phosphorus Level 3.6 Magnesium Level 1.8 Blood Gas Specimen Source Blood arterial Arterial Blood Date Drawn 08/28/2017 7:30:30 AM Arterial Blood pH (Temp corrected) 7.397 Arterial Blood pCO2 (Temp correct) 41.3 Arterial Blood pO2 (Temp corrected) 59.2 L Arterial Blood HCO3 24.8 Arterial Blood Base Excess 0 Arterial Blood Oxygen Saturation 89.1 L Kar Test ACCEPTAB Arterial Blood Gas Puncture Site Right Radial Arterial Blood Carboxyhemoglobin 0.3 Arterial Blood Methemoglobin 0.3 Blood Gas A-a O2 Differential 612.5 H Oxyhemoglobin Percent 88.6 L Total Hemoglobin 18.6 H Blood Gas Temperature 37.0 Blood Gas Respiration Rate 26.0 Blood Gas Actual Respiration Rate 30 Blood Gas Modality VENT - AC FiO2 100.0 Blood Gas Tidal Volume 450.0 Blood Gas Low PEEP Setting 16.0 Blood Gas Notified Whom JLD Blood Gas Notified Time 08/28/2017 7:56:13 AM Medications Medications Current Medications Flumazenil (Romazicon) 0.2 mg Q1M PRN IV BENZODIAZEPINE OVERDOSE; Start at 07:30 Naloxone HCl (Narcan) 0.4 mg Q3M PRN IV DECREASED REPIRATORY RATE; Start at 07:30 Ondansetron HCl (Zofran Inj) 4 mg Q6H PRN IV NAUSEA AND/OR VOMITING; Start 08/24/17 at 07:30 Nitroglycerin (Nitroglycerin (Sl Tab) 0.4 Mg) 1 tab Q5M PRN SL CHEST PAIN; Start 08/24/17 at 07:30 Acetaminophen (Tylenol Liquid) 650 mg Q6H PRN PO PAIN LEVEL 1-3 OR FEVER; Start 08/24/17 at 07:30 Acetaminophen (Tylenol Tab) 650 mg Q6H PRN PO PAIN LEVEL 1-3 OR FEVER; Start 08/24/17 at 07:30 Acetaminophen (Tylenol Supp) 650 mg Q4H PRN [place] PAIN LEVEL 1-3 OR TEMP > 37C; Start 08/24/17 at 07:30 Ibuprofen (Motrin) 600 mg Q6H PRN PO PAIN LEVEL 1-3 OR FEVER; Start 08/24/17 at 07:30 Acetaminophen/ Hydrocodone Bitart ([place] (5/325)) 1 tab Q6H PRN PO PAIN LEVEL 4 -6; Start 08/24/17 at 07:30 Morphine Sulfate (morphine) 2 mg Q4H PRN IV PAIN LEVEL 7-10 Last administered on 08/27/17 03:38; Admin Dose 2 MG; Start 08/24/17 at 07:30 Lorazepam (Ativan) 1 mg Q2H PRN IV ANXIETY Last administered on 08/27/17 04:00 ; Admin Dose 1 MG; Start 08/24/17 at 07:30 Docusate Sodium (Colace) 100 mg Q12H PRN PO CONSTIPATION; Start 08/24/17 at 07: 30 Magnesium Hydroxide (Milk Of Mag) 30 ml DAILY PRN PO CONSTIPATION; Start at 07:30 Bisacodyl (Dulcolax) 5 mg DAILY PRN PO CONSTIPATION; Start 08/24/17 at 07:30 Bisacodyl (Dulcolax Supp) 10 mg DAILY PRN [place] CONSTIPATION; Start 08/24/17 at 07 :30 Sodium Biphosphate/ Sodium Phosphate (Fleet Enema) 133 ml DAILY PRN [place] CONSTIPATION; Start 08/24/17 at 07:30 Eye Lubricant (Artificial Tears Oph) 1 drop TID BOTH EYES Last administered on 08/27/17 21:00; Admin Dose 1 DROP; Start 08/24/17 at 09:00 Enoxaparin Sodium 40 mg 40 mg DAILY SC Last administered on 08/27/17 10:29; Admin Dose 40 MG; Start 08/24/17 at 09:00 Piperacillin Sod/ Tazobactam Sod (Zosyn 3.375gm/ 50 ml (Pmx)) 50 ml @ 0 mls/hr Q6 IV Last administered on 08/28/17 06:15; Admin Dose 100 MLS/HR; Start at 12:00 Pantoprazole (Protonix Tab) 40 mg DAILY@06 PO Last administered on 08/28/17 06 :15; Admin Dose 40 MG; Start 08/25/17 at 06:00 Hydralazine HCl (Apresoline) 10 mg Q6H PRN IV ELEVATED BLOOD PRESSURE; Start 08/24/17 at 15:30 Levothyroxine Sodium (Synthroid) 25 mcg DAILY@06 NGT Last administered on 06:15; Admin Dose 25 MCG; Start 08/25/17 at 06:00 Acetaminophen (Tylenol Supp) 500 mg Q6H [place] Last administered on 08/27/17 12:27 ; Admin Dose 500 MG; Start 08/25/17 at 18:30 Acetaminophen (Tylenol Liquid) 500 mg Q6H PO Last administered on 08/28/17 07: 27; Admin Dose 500 MG; Start 08/25/17 at 18:30 Meperidine HCl (Demerol) 12.5 mg Q4H PRN IV POST OPERATIVE SHIVERING; Start at 18:30 Meperidine HCl (Demerol) 25 mg Q4H PRN IV POST OPERATIVE SHIVERING; Start 08/24 at 18:30 Eye Lubricant (Akwa Oint) 1 applic Q6 BOTH EYES Last administered on 08/28/17 06:17; Admin Dose 1 APPLIC; Start 08/24/17 at 18:30 Eye Lubricant 2 drop 2 drop Q6 BOTH EYES Last administered on 08/28/17 06:17; Admin Dose 2 DROP; Start 08/24/17 at 18:30 Propofol 100 ml @ 3.75 mls/hr Q12H IV Last administered on 08/28/17 05:45; Admin Dose 37.5 MLS/HR; Start 08/24/17 at 19:30 Vecuronium [place] 100 mg/ Dextrose 100 ml @ 6.25 mls/hr TITRATE IV Last administered on 08/25/17 10:44; Admin Dose 2.5 MLS/HR; Start 08/25/17 at 10:00 Levetiracetam 100 ml @ 400 mls/hr Q12 IVPB Last administered on 08/27/17 21: 00; Admin Dose 400 MLS/HR; Start 08/25/17 at 10:00 Norepinephrine 16 mg/Dextrose 500 ml @ 1.87 mls/hr TITRATE IV Last administered on 08/26/17 14:32; Admin Dose 22.5 MLS/HR; Start 08/26/17 at 13:30 Fentanyl 100 ml @ 2.5 mls/hr TITRATE IV Last administered on 08/27/17 16:30; Admin Dose 9.5 MLS/HR; Start 08/27/17 at 09:30 Vancomycin HCl 1.25 gm/Sodium Chloride 250 ml @ 83.333 mls/ hr Q12H IVPB Last administered on 08/28/17 06:20; Admin Dose 83.333 MLS/HR; Start 08/27/17 at 18: 00 Dextrose/Sodium Chloride (D5-1/2ns) 1,000 ml @ 70 mls/hr [id number] IV Last administered on 08/27/17 22:00; Admin Dose 70 MLS/HR; Start 08/27/17 at 11:00 Aspirin (Aspirin) 81 mg DAILY PO Last administered on 08/27/17 11:00; Admin Dose 81 MG; Start 08/28/17 at 09:00 Insulin Glargine (Lantus) 15 unit DAILY@08 SC Last administered on 08/27/17 13 :27; Admin Dose 15 UNIT; Start 08/27/17 at 13:00 TRACY MENDOZA MD Aug 28, 2017 08:37
[2017-08-28] MEDS: ASPIRIN 81 MG TAB PO SCH (09:07)
[2017-08-28] MEDS: ENOXAPARIN 40 MG/0.4 ML SYG SC SCH (09:17)
[2017-08-28] MEDS: LEVETIRACETAM 500 MG (PMX) 100 ML IVPB SCH ×2 (09:18→20:42)
[2017-08-28] MEDS: INSULIN GLARGINE [LANtus] 3 ML PEN SC SCH (09:41)
--- NOTE | 2017-08-28 09:46 | CONS ---
Date/Time of Note Date/Time of Note DATE: 08/28/17 TIME: 09:42 Consult Date/Type/Reason Admit Date/Time Aug 24, 2017 at 07:05 Initial Consult Date 08/27/17 Type of Consultation: Pulmonary Ordering Provider: MIKE LUONG MD Subjective Patient remains unresponsive on mechanical ventilation 100% FiO2. Significant tachypnea without sedation. Objective Vital Signs Date Time Temp Pulse Resp B/P Pulse Ox O2 Delivery O2 Flow Rate FiO2 08/28/17 08:00 117 08/28/17 06:30 28 117/70 88 08/28/17 05:27 100 08/28/17 04:00 99.8 Mechanical Ventilator 08/24/17 16:00 10.0 Intake and Output 08/27/17 08/27/17 08/28/17 15:00 23:00 07:00 Intake Total 0 ml 472.5 ml Output Total 198 ml 133 ml 223 ml Balance -198 ml 339.5 ml -223 ml Exam PHYSICAL EXAMINATION GENERAL: Chronically ill-appearing gentleman intubated on mechanical ventilation VITAL SIGNS: see below. HEENT: Diminished pupillary response significant conjunctival edema CARDIAC: S1, S2, no added sounds or murmurs distant heart sounds CHEST: Diminished air entry bilaterally. ABDOMEN: Mildly distended. Bowel sounds present no guarding or rebound EXTREMITIES: No cyanosis, clubbing edema +1 NEUROLOGIC: Unable to assess Results/Medications Result Diagram: 08/28/17 0320 08/28/17 0425 Results 24 hrs Laboratory Tests Test 08/27/17 10:36 08/27/17 11:22 08/27/17 13:26 08/27/17 17:23 Bedside Glucose 111 116 112 Blood Gas Specimen Source Blood arterial Arterial Blood Date Drawn 08/27/2017 11:40:49 AM Arterial Blood pH (Temp corrected) 7.426 Arterial Blood pCO2 (Temp correct) 39.4 Arterial Blood pO2 (Temp corrected) 57.7 L Arterial Blood HCO3 25.3 Arterial Blood Base Excess 1.1 Arterial Blood Oxygen Saturation 88.4 L Kar Test ACCEPTAB Arterial Blood Gas Puncture Site Right Radial Arterial Blood Carboxyhemoglobin 0.3 Arterial Blood Methemoglobin 0.4 Blood Gas A-a O2 Differential 615.9 H Oxyhemoglobin Percent 87.8 L Total Hemoglobin 20.2 H Blood Gas Temperature 37.0 Blood Gas Respiration Rate 26.0 Blood Gas Actual Respiration Rate 26 Blood Gas Modality VENT - AC FiO2 100.0 Blood Gas Tidal Volume 500.0 Blood Gas Low PEEP Setting 14.0 Blood Gas Notified Whom JLD Blood Gas Notified Time 08/27/2017 11:53:34 AM Test 08/28/17 03:20 08/28/17 04:25 08/28/17 07:00 08/28/17 09:06 White Blood Count 12.1 #H Red Blood Count 6.17 H Hemoglobin 16.7 Hematocrit 55.4 H Mean Corpuscular Volume 89.8 Mean Corpuscular Hemoglobin 27.1 L Mean Corpuscular Hemoglobin Concent 30.1 L Red Cell Distribution Width 20.5 H Platelet Count 141 # Mean Platelet Volume 10.9 H Neutrophils % 81.5 H Lymphocytes % 10.6 L Monocytes % 6.1 Eosinophils % 1.2 Basophils % 0.3 Nucleated Red Blood Cells % 0.2 H Neutrophils # 9.9 H Lymphocytes # 1.3 Monocytes # 0.7 Eosinophils # 0.1 Basophils # 0.0 Nucleated Red Blood Cells # 0.0 Sodium Level 139 Potassium Level 3.1 L Chloride Level 101 Carbon Dioxide Level 30 Anion Gap 11 Blood Urea Nitrogen 15 Creatinine 1.12 Glucose Level 93 Calcium Level 7.8 L Phosphorus Level 3.6 Magnesium Level 1.8 Blood Gas Specimen Source Blood arterial Arterial Blood Date Drawn 08/28/2017 7:30:30 AM Arterial Blood pH (Temp corrected) 7.397 Arterial Blood pCO2 (Temp correct) 41.3 Arterial Blood pO2 (Temp corrected) 59.2 L Arterial Blood HCO3 24.8 Arterial Blood Base Excess 0 Arterial Blood Oxygen Saturation 89.1 L Kar Test ACCEPTAB Arterial Blood Gas Puncture Site Right Radial Arterial Blood Carboxyhemoglobin 0.3 Arterial Blood Methemoglobin 0.3 Blood Gas A-a O2 Differential 612.5 H Oxyhemoglobin Percent 88.6 L Total Hemoglobin 18.6 H Blood Gas Temperature 37.0 Blood Gas Respiration Rate 26.0 Blood Gas Actual Respiration Rate 30 Blood Gas Modality VENT - AC FiO2 100.0 Blood Gas Tidal Volume 450.0 Blood Gas Low PEEP Setting 16.0 Blood Gas Notified Whom JLD Blood Gas Notified Time 08/28/2017 7:56:13 AM Bedside Glucose 101 Medications Current Medications Flumazenil (Romazicon) 0.2 mg Q1M PRN IV BENZODIAZEPINE OVERDOSE; Start at 07:30 Naloxone HCl (Narcan) 0.4 mg Q3M PRN IV DECREASED REPIRATORY RATE; Start at 07:30 Ondansetron HCl (Zofran Inj) 4 mg Q6H PRN IV NAUSEA AND/OR VOMITING; Start 08/24/17 at 07:30 Nitroglycerin (Nitroglycerin (Sl Tab) 0.4 Mg) 1 tab Q5M PRN SL CHEST PAIN; Start 08/24/17 at 07:30 Acetaminophen (Tylenol Liquid) 650 mg Q6H PRN PO PAIN LEVEL 1-3 OR FEVER; Start 08/24/17 at 07:30 Acetaminophen (Tylenol Tab) 650 mg Q6H PRN PO PAIN LEVEL 1-3 OR FEVER; Start 08/24/17 at 07:30 Acetaminophen (Tylenol Supp) 650 mg Q4H PRN [place] PAIN LEVEL 1-3 OR TEMP > 37C; Start 08/24/17 at 07:30 Ibuprofen (Motrin) 600 mg Q6H PRN PO PAIN LEVEL 1-3 OR FEVER; Start 08/24/17 at 07:30 Acetaminophen/ Hydrocodone Bitart ([place] (5/325)) 1 tab Q6H PRN PO PAIN LEVEL 4 -6; Start 08/24/17 at 07:30 Morphine Sulfate (morphine) 2 mg Q4H PRN IV PAIN LEVEL 7-10 Last administered on 08/27/17 03:38; Admin Dose 2 MG; Start 08/24/17 at 07:30 Lorazepam (Ativan) 1 mg Q2H PRN IV ANXIETY Last administered on 08/27/17 04:00 ; Admin Dose 1 MG; Start 08/24/17 at 07:30 Docusate Sodium (Colace) 100 mg Q12H PRN PO CONSTIPATION; Start 08/24/17 at 07: 30 Magnesium Hydroxide (Milk Of Mag) 30 ml DAILY PRN PO CONSTIPATION; Start at 07:30 Bisacodyl (Dulcolax) 5 mg DAILY PRN PO CONSTIPATION; Start 08/24/17 at 07:30 Bisacodyl (Dulcolax Supp) 10 mg DAILY PRN [place] CONSTIPATION; Start 08/24/17 at 07 :30 Sodium Biphosphate/ Sodium Phosphate (Fleet Enema) 133 ml DAILY PRN [place] CONSTIPATION; Start 08/24/17 at 07:30 Eye Lubricant (Artificial Tears Oph) 1 drop TID BOTH EYES Last administered on 08/28/17 09:08; Admin Dose 1 DROP; Start 08/24/17 at 09:00 Enoxaparin Sodium 40 mg 40 mg DAILY SC Last administered on 08/28/17 09:17; Admin Dose 40 MG; Start 08/24/17 at 09:00 Piperacillin Sod/ Tazobactam Sod (Zosyn 3.375gm/ 50 ml (Pmx)) 50 ml @ 0 mls/hr Q6 IV Last administered on 08/28/17 06:15; Admin Dose 100 MLS/HR; Start at 12:00 Pantoprazole (Protonix Tab) 40 mg DAILY@06 PO Last administered on 08/28/17 06 :15; Admin Dose 40 MG; Start 08/25/17 at 06:00 Hydralazine HCl (Apresoline) 10 mg Q6H PRN IV ELEVATED BLOOD PRESSURE; Start 08/24/17 at 15:30 Levothyroxine Sodium (Synthroid) 25 mcg DAILY@06 NGT Last administered on 09:07; Admin Dose 25 MCG; Start 08/25/17 at 06:00 Acetaminophen (Tylenol Supp) 500 mg Q6H [place] Last administered on 08/27/17 12:27 ; Admin Dose 500 MG; Start 08/25/17 at 18:30 Acetaminophen (Tylenol Liquid) 500 mg Q6H PO Last administered on 08/28/17 07: 27; Admin Dose 500 MG; Start 08/25/17 at 18:30 Meperidine HCl (Demerol) 12.5 mg Q4H PRN IV POST OPERATIVE SHIVERING; Start at 18:30 Meperidine HCl (Demerol) 25 mg Q4H PRN IV POST OPERATIVE SHIVERING; Start 08/24 at 18:30 Eye Lubricant (Akwa Oint) 1 applic Q6 BOTH EYES Last administered on 08/28/17 09:08; Admin Dose 1 APPLIC; Start 08/24/17 at 18:30 Eye Lubricant 2 drop 2 drop Q6 BOTH EYES Last administered on 08/28/17 06:17; Admin Dose 2 DROP; Start 08/24/17 at 18:30 Propofol 100 ml @ 3.75 mls/hr Q12H IV Last administered on 08/28/17 09:07; Admin Dose 37.5 MLS/HR; Start 08/24/17 at 19:30 Vecuronium [place] 100 mg/ Dextrose 100 ml @ 6.25 mls/hr TITRATE IV Last administered on 08/25/17 10:44; Admin Dose 2.5 MLS/HR; Start 08/25/17 at 10:00 Levetiracetam 100 ml @ 400 mls/hr Q12 IVPB Last administered on 08/28/17 09: 18; Admin Dose 400 MLS/HR; Start 08/25/17 at 10:00 Norepinephrine 16 mg/Dextrose 500 ml @ 1.87 mls/hr TITRATE IV Last administered on 08/26/17 14:32; Admin Dose 22.5 MLS/HR; Start 08/26/17 at 13:30 Fentanyl 100 ml @ 2.5 mls/hr TITRATE IV Last administered on 08/27/17 16:30; Admin Dose 9.5 MLS/HR; Start 08/27/17 at 09:30 Vancomycin HCl 1.25 gm/Sodium Chloride 250 ml @ 83.333 mls/ hr Q12H IVPB Last administered on 08/28/17 06:20; Admin Dose 83.333 MLS/HR; Start 08/27/17 at 18: 00 Dextrose/Sodium Chloride (D5-1/2ns) 1,000 ml @ 70 mls/hr [id number] IV Last administered on 08/27/17 22:00; Admin Dose 70 MLS/HR; Start 08/27/17 at 11:00 Aspirin (Aspirin) 81 mg DAILY PO Last administered on 08/28/17 09:07; Admin Dose 81 MG; Start 08/28/17 at 09:00 Insulin Glargine (Lantus) 15 unit DAILY@08 SC Last administered on 08/28/17 09 :41; Admin Dose 15 UNIT; Start 08/27/17 at 13:00 Assessment/Plan Chief Complaint/Hosp Course IMP: 1. s/p Cardiopulmonary arrest--likely due to aspiration and central airway obstruction 2. Seizure Disorder 3. Gram + bacteremia--likely contaminant 4. Possible anoxic brain injury 5. CAP vs. aspiration, no evidence of pulmonary embolism on CT angiogram 6. Morbid obesity 7. DM RECS: 1. Continue mechanical ventilation for weaning, decrease FiO2 and PEEP as tolerated. Currently on volume control ventilation. 2. Anti-epileptic Rx and propofol gtt 3. Nasogastric tube feeding as tolerated 4. Abx 5. F/U Cx's 6. DVT and GI prophylaxis 7. EEG and neuro evaluation. 8. Prognosis is poor 35 min cc time Problems: JULIANA WASHINGTON MD, [facility] Aug 28, 2017 09:46
[2017-08-28] MEDS ORDERED: Discontinue current oral sulfonylureas (glyburide, glipizide, and/or glimepiride) prior to XX ONE (10:30)
[2017-08-28] MEDS ORDERED: HYPOGLYCEMIA PROTOCOL when Glucose is <70 mg/dL or symptomatic <90 mg/dL XX ONE (10:30)
[2017-08-28] MEDS ORDERED: INSULIN GLARGINE [LANtus] 3 ML PEN SC SCH (11:00)
[2017-08-28] MEDS ORDERED: GLUCOSE GEL 15 GRAM TUBE BUCCAL PRN (11:30)
[2017-08-28] MEDS ORDERED: GLUCOSE GEL 15 GRAM TUBE PO PRN ×2 (11:30)
[2017-08-28] MEDS ORDERED: GLUCAGON 1 MG INJ IM PRN (11:30)
[2017-08-28] MEDS ORDERED: DEXTROSE 50% 50 ML SYRINGE IV PRN ×2 (11:30)
[2017-08-28] MEDS: INSULIN ASPART [NOVOLOG] 3 ML PEN SC SCH ×2 (12:00→18:00)
--- NOTE | 2017-08-28 13:56 | RADRPT ---
AMENDMENT: 08/28/2017 2:29:49 PM Helio Weiner M.d Amended report: PROCEDURE: XR Chest. CLINICAL INDICATION: Check Line Placement TECHNIQUE: PA and Lateral views of the chest were obtained. COMPARISON: Earlier study from the same date at 1331 hours FINDINGS: Cardiac silhouette is enlarged. There is vascular congestion with mixed bilateral interstitial alveo lar infiltrates. There is a small left pleural effusion. Endotracheal tube and nasogastric tubes vickie ear unchanged. The left PICC line has been repositioned. The tip is now in the right atrium. IMPRESSION: 1. No change in cardiomegaly, vascular congestion and diffuse bilateral infiltrates. 2. Unchanging left pleural effusion. 3. Repositioned left PICC line with the tip now in the right atrium. RPTAT: AAC PROCEDURE: XR Chest. CLINICAL INDICATION: Check Line Placement TECHNIQUE: PA and Lateral views of the chest were obtained. COMPARISON: Earlier study from the same date at 1331 hours FINDINGS: Cardiac silhouette is enlarged. There is vascular congestion with mixed bilateral interstitial alveo lar infiltrates. There is a small left pleural effusion. Endotracheal tube and nasogastric tubes vickie ear unchanged. The left PICC line has been repositioned. The tip is now in the right atrium. This ne eds to be pulled back 6-7 cm for better positioning. IMPRESSION: 1. No change in cardiomegaly, vascular congestion and diffuse bilateral infiltrates. 2. Unchanging left pleural effusion. 3. Repositioned left PICC line with the tip now in the right atrium. The catheter should be withdra wn 6-7 cm for better positioning. Altaf Weiner Physician Date Time Electronically viewed and signed by Altaf Weiner Physician on 08/28/2017 14:29 /
[2017-08-28] MEDS ORDERED: SOD CHLORIDE 0.9% 100 ML ONE (13:58)
--- NOTE | 2017-08-28 14:00 | RADRPT ---
PROCEDURE: XR Chest. CLINICAL INDICATION: Line placement. TECHNIQUE: Single frontal portable chest was obtained. COMPARISON: Earlier study from the same date at 0557 hours.. FINDINGS: There is continuing cardiomegaly and there has been a slight increase in vascular congestion and mix ed interstitial alveolar infiltrates suggesting slight worsening of congestive heart failure. Endotr acheal tube and nasogastric tubes appear unchanged and there is a new left-sided PICC line. The tip base and is into the internal jugular vein. IMPRESSION: 1. Left-sided PICC line with the tip ascending into the left jugular vein. This needs to be pulled back and repositioned. 2. Slight interval worsening of congestive heart failure. RPTAT: AACC Physician Maulik Date Time Electronically viewed and signed by Altaf Weiner Physician on 08/28/2017 14:00 /
--- NOTE | 2017-08-28 14:02 | PN ---
DATE: 08/28/2017 SUBJECTIVE: The patient is spiking fevers. He is intubated, sedated on PEEP of 16 and FIO2 of 100. VITAL SIGNS: Heart rate 117, respirations 28, blood pressure 117/70, saturation 88%. LABORATORY DATA: WBC 12.1, H and H 16.7 and 55.4, platelets 141, neutrophils 81.5, BUN 15, creatini ne 1.12, total. MICROBIOLOGY: Blood cultures on admission grew coagulase-negative staph. The patient's repeat bloo d cultures negative. DIAGNOSTICS: Chest x-ray revealed no change from yesterday. INDWELLINGS: Endotracheal tube, NG tube, [place] catheter and femoral line. ANTIMICROBIALS: The patient remains on: 1. Zosyn. 2. Vancomycin. PHYSICAL EXAMINATION: GENERAL: This is a morbidly obese, well-developed, middle-aged man who is intubated, in no distress. HEENT: Head atraumatic, normocephalic. Sclerae anicteric. Buccal mucosa dry. NECK: Obese. CHEST: Rise symmetrical. Breath sounds diminished to bases. HEART: S1, S2. ABDOMEN: Soft, distended. Bowel tones hypoactive. EXTREMITIES: Bilateral edema. ASSESSMENT: 1. Acute respiratory failure, possibly aspiration and questionable adult respiratory distress syndr ome. 2. Acute encephalopathy status post cardiopulmonary arrest. 3. Pneumonia. 4. Staph bacteremia, likely contaminant. 5. Diabetes. 6. Morbid obesity. 7. Acute renal kidney injury, with creatinine improving. PLAN: The patient is doing poorly, covered with broad-spectrum antibiotics. We are going to repeat cultures now, continue him on current regimen, follow recommendations of consultants. Dictated By: BEKA WATKINS FARM DEMONSTRATOR for JORDAN FORRESTER/YESI Conf#: [id number] DID#: [id number]
--- NOTE | 2017-08-28 14:50 | RADRPT ---
Vent Rate: 63 bpm RR Interval: 0 msec IA Interval: 174 msec QRS Duration: 106 msec QT Interval: 666 msec QTC Interval: 681 msec P-R-T [place]: 54 - 105 - 180 degrees Normal sinus rhythm Right atrial enlargement Rightward axis T wave abnormality, consider inferior ischemia T wave abnormality, consider anterolateral ischemia Prolonged QT Abnormal ECG Electronically Signed By: Peter North [id number]
[2017-08-28] MEDS: DEXTROSE 5%-0.45% NACL 1,000 ML IV SCH (16:09)
--- NOTE | 2017-08-28 16:54 | RADRPT ---
PROCEDURE: Ultrasound guidance for placement of needle in left upper extremity vein. CLINICAL INDICATION: Venous access. TECHNIQUE: Limited sonography of the left upper extremity was performed. Ultrasound images were recorded and s tored in the patient's medical record. COMPARISON: None. FINDINGS: The ultrasound images demonstrate a patent left upper extremity vein. The PICC line was inserted by the PICC line nurse. IMPRESSION: 1. Ultrasound guidance for a needle placement in a left upper extremity vein. 2. The left upper extremity vein is patent. RPTAT: QQ .Niels Stanton MD, MD Date Time Electronically viewed and signed by .Niels Stanton MD, MD on 08/28/2017 16:54 .R/
[2017-08-28] MEDS ORDERED: POTASSIUM CHLORIDE 50 ML IVPB SCH (18:00)
[2017-08-28] MEDS ORDERED: POTASSIUM CHLORIDE 250 ML IVPB ONE (18:30)
--- NOTE | 2017-08-28 22:19 | PN ---
Date/Time of Note Date/Time of Note DATE: 08/28/17 TIME: 22:18 Assessment/Plan VTE Prophylaxis VTE Prophylaxis Intervention: other Lines/Catheters IV Catheter Type (from Nrs): PICC Line Central line still needed: Yes Urinary Cath still in place: Yes Reason Cath still needed: other (indicate) Assessment/Plan Chief Complaint/Hosp Course 1. s/p cardiac arrest 2. Sepsis with Gram + bacteremia 3. Morbid obesity 4. Hypertension hx 5. history of flu like sickness before admission 6. Anemia 7. Seizure Disorder 8. Possible anoxic brain injury. 7. Underlying diabetes mellitus. 8 obesity 9 polycythemi plan antibiotic per pull and cardio and neuro and dr keene Problems: Subjective 24 Hr Interval Summary Subjective hx not possible: other (on vent) Exam/Review of Systems Vital Signs Vitals Vital Signs Date Time Temp Pulse Resp B/P Pulse Ox O2 Delivery O2 Flow Rate FiO2 08/28/17 21:30 107 32 91 100 08/28/17 21:00 147/94 Mechanical Ventilator 08/28/17 20:30 101.5 08/24/17 16:00 10.0 Intake and Output 08/27/17 08/27/17 08/28/17 15:00 23:00 07:00 Intake Total 0 ml 472.5 ml 83.333 ml Output Total 198 ml 133 ml 255 ml Balance -198 ml 339.5 ml -171.667 ml Exam Respiratory: diminished breath sounds Cardiovascular: regular rate and rhythm Gastrointestinal: bowel sounds (+), soft Extremities: edema (++) Neurological: unresponsive Results Result Diagram: 08/28/17 0320 08/28/17 0425 Results 24 hrs Laboratory Tests Test 08/28/17 03:20 08/28/17 04:25 08/28/17 07:00 08/28/17 09:06 White Blood Count 12.1 #H Red Blood Count 6.17 H Hemoglobin 16.7 Hematocrit 55.4 H Mean Corpuscular Volume 89.8 Mean Corpuscular Hemoglobin 27.1 L Mean Corpuscular Hemoglobin Concent 30.1 L Red Cell Distribution Width 20.5 H Platelet Count 141 # Mean Platelet Volume 10.9 H Neutrophils % 81.5 H Lymphocytes % 10.6 L Monocytes % 6.1 Eosinophils % 1.2 Basophils % 0.3 Nucleated Red Blood Cells % 0.2 H Neutrophils # 9.9 H Lymphocytes # 1.3 Monocytes # 0.7 Eosinophils # 0.1 Basophils # 0.0 Nucleated Red Blood Cells # 0.0 Sodium Level 139 Potassium Level 3.1 L Chloride Level 101 Carbon Dioxide Level 30 Anion Gap 11 Blood Urea Nitrogen 15 Creatinine 1.12 Glucose Level 93 Calcium Level 7.8 L Phosphorus Level 3.6 Magnesium Level 1.8 Blood Gas Specimen Source Blood arterial Arterial Blood Date Drawn 08/28/2017 7:30:30 AM Arterial Blood pH (Temp corrected) 7.397 Arterial Blood pCO2 (Temp correct) 41.3 Arterial Blood pO2 (Temp corrected) 59.2 L Arterial Blood HCO3 24.8 Arterial Blood Base Excess 0 Arterial Blood Oxygen Saturation 89.1 L Kar Test ACCEPTAB Arterial Blood Gas Puncture Site Right Radial Arterial Blood Carboxyhemoglobin 0.3 Arterial Blood Methemoglobin 0.3 Blood Gas A-a O2 Differential 612.5 H Oxyhemoglobin Percent 88.6 L Total Hemoglobin 18.6 H Blood Gas Temperature 37.0 Blood Gas Respiration Rate 26.0 Blood Gas Actual Respiration Rate 30 Blood Gas Modality VENT - AC FiO2 100.0 Blood Gas Tidal Volume 450.0 Blood Gas Low PEEP Setting 16.0 Blood Gas Notified Whom JLD Blood Gas Notified Time 08/28/2017 7:56:13 AM Bedside Glucose 101 Test 08/28/17 11:50 08/28/17 18:13 Bedside Glucose 106 106 Medications Medications Current Medications Flumazenil (Romazicon) 0.2 mg Q1M PRN IV BENZODIAZEPINE OVERDOSE; Start at 07:30 Naloxone HCl (Narcan) 0.4 mg Q3M PRN IV DECREASED REPIRATORY RATE; Start at 07:30 Ondansetron HCl (Zofran Inj) 4 mg Q6H PRN IV NAUSEA AND/OR VOMITING; Start 08/24/17 at 07:30 Nitroglycerin (Nitroglycerin (Sl Tab) 0.4 Mg) 1 tab Q5M PRN SL CHEST PAIN; Start 08/24/17 at 07:30 Acetaminophen (Tylenol Liquid) 650 mg Q6H PRN PO PAIN LEVEL 1-3 OR FEVER; Start 08/24/17 at 07:30 Acetaminophen (Tylenol Tab) 650 mg Q6H PRN PO PAIN LEVEL 1-3 OR FEVER; Start 08/24/17 at 07:30 Acetaminophen (Tylenol Supp) 650 mg Q4H PRN [place] PAIN LEVEL 1-3 OR TEMP > 37C; Start 08/24/17 at 07:30 Ibuprofen (Motrin) 600 mg Q6H PRN PO PAIN LEVEL 1-3 OR FEVER; Start 08/24/17 at 07:30 Acetaminophen/ Hydrocodone Bitart ([place] (5/325)) 1 tab Q6H PRN PO PAIN LEVEL 4 -6; Start 08/24/17 at 07:30 Morphine Sulfate (morphine) 2 mg Q4H PRN IV PAIN LEVEL 7-10 Last administered on 08/27/17 03:38; Admin Dose 2 MG; Start 08/24/17 at 07:30 Lorazepam (Ativan) 1 mg Q2H PRN IV ANXIETY Last administered on 08/27/17 04:00 ; Admin Dose 1 MG; Start 08/24/17 at 07:30 Docusate Sodium (Colace) 100 mg Q12H PRN PO CONSTIPATION; Start 08/24/17 at 07: 30 Magnesium Hydroxide (Milk Of Mag) 30 ml DAILY PRN PO CONSTIPATION; Start at 07:30 Bisacodyl (Dulcolax) 5 mg DAILY PRN PO CONSTIPATION; Start 08/24/17 at 07:30 Bisacodyl (Dulcolax Supp) 10 mg DAILY PRN [place] CONSTIPATION; Start 08/24/17 at 07 :30 Sodium Biphosphate/ Sodium Phosphate (Fleet Enema) 133 ml DAILY PRN [place] CONSTIPATION; Start 08/24/17 at 07:30 Eye Lubricant (Artificial Tears Oph) 1 drop TID BOTH EYES Last administered on 08/28/17 20:42; Admin Dose 1 DROP; Start 08/24/17 at 09:00 Enoxaparin Sodium 40 mg 40 mg DAILY SC Last administered on 08/28/17 09:17; Admin Dose 40 MG; Start 08/24/17 at 09:00 Piperacillin Sod/ Tazobactam Sod (Zosyn 3.375gm/ 50 ml (Pmx)) 50 ml @ 0 mls/hr Q6 IV Last administered on 08/28/17 18:17; Admin Dose 200 MLS/HR; Start at 12:00 Pantoprazole (Protonix Tab) 40 mg DAILY@06 PO Last administered on 08/28/17 06 :15; Admin Dose 40 MG; Start 08/25/17 at 06:00 Hydralazine HCl (Apresoline) 10 mg Q6H PRN IV ELEVATED BLOOD PRESSURE; Start 08/24/17 at 15:30 Levothyroxine Sodium (Synthroid) 25 mcg DAILY@06 NGT Last administered on 09:07; Admin Dose 25 MCG; Start 08/25/17 at 06:00 Acetaminophen (Tylenol Supp) 500 mg Q6H [place] Last administered on 08/27/17 12:27 ; Admin Dose 500 MG; Start 08/25/17 at 18:30 Acetaminophen (Tylenol Liquid) 500 mg Q6H PO Last administered on 08/28/17 18: 16; Admin Dose 500 MG; Start 08/25/17 at 18:30 Meperidine HCl (Demerol) 12.5 mg Q4H PRN IV POST OPERATIVE SHIVERING; Start at 18:30 Meperidine HCl (Demerol) 25 mg Q4H PRN IV POST OPERATIVE SHIVERING; Start 08/24 at 18:30 Eye Lubricant (Akwa Oint) 1 applic Q6 BOTH EYES Last administered on 08/28/17 18:17; Admin Dose 1 APPLIC; Start 08/24/17 at 18:30 Eye Lubricant 2 drop 2 drop Q6 BOTH EYES Last administered on 08/28/17 18:17; Admin Dose 2 DROP; Start 08/24/17 at 18:30 Propofol 100 ml @ 3.75 mls/hr Q12H IV Last administered on 08/28/17 21:04; Admin Dose 37.5 MLS/HR; Start 08/24/17 at 19:30 Vecuronium [place] 100 mg/ Dextrose 100 ml @ 6.25 mls/hr TITRATE IV Last administered on 08/25/17 10:44; Admin Dose 2.5 MLS/HR; Start 08/25/17 at 10:00 Levetiracetam 100 ml @ 400 mls/hr Q12 IVPB Last administered on 08/28/17 20: 42; Admin Dose 400 MLS/HR; Start 08/25/17 at 10:00 Norepinephrine 16 mg/Dextrose 500 ml @ 1.87 mls/hr TITRATE IV Last administered on 08/26/17 14:32; Admin Dose 22.5 MLS/HR; Start 08/26/17 at 13:30 Fentanyl 100 ml @ 2.5 mls/hr TITRATE IV Last administered on 08/27/17 16:30; Admin Dose 9.5 MLS/HR; Start 08/27/17 at 09:30 Vancomycin HCl 1.25 gm/Sodium Chloride 250 ml @ 83.333 mls/ hr Q12H IVPB Last administered on 08/28/17 18:18; Admin Dose 83.333 MLS/HR; Start 08/27/17 at 18: 00 Dextrose/Sodium Chloride (D5-1/2ns) 1,000 ml @ 70 mls/hr [id number] IV Last administered on 08/28/17 16:09; Admin Dose 70 MLS/HR; Start 08/27/17 at 11:00 Aspirin (Aspirin) 81 mg DAILY PO Last administered on 08/28/17 09:07; Admin Dose 81 MG; Start 08/28/17 at 09:00 Insulin Glargine (Lantus) 15 unit DAILY@08 SC Last administered on 08/28/17 09 :41; Admin Dose 15 UNIT; Start 08/27/17 at 13:00 Miscellaneous Information (*Rx Drug Level Order Reminder*) 1 ONCE ONCE XX ; Start 08/29/17 at 05:00; Stop 08/29/17 at 05:01 Diagnostic Test (Pha) (Accu-Chek) 1 ea 02 XX ; Start 08/29/17 at 02:00 Insulin Aspart (Novolog Insulin Pen) NOVOLOG *MILD* ALGORI... Q6 SC ; Start 08/28/17 at 12:00 Miscellaneous Information 1 ea NOTE XX ; Start 08/28/17 at 11:30 Glucose (Glutose) 15 gm Q15M PRN PO DECREASED GLUCOSE; Start 08/28/17 at 11:30 Glucose (Glutose) 22.5 gm Q15M PRN PO DECREASED GLUCOSE; Start 08/28/17 at 11: 30 Dextrose (D50w Syringe) 25 ml Q15M PRN IV DECREASED GLUCOSE; Start 08/28/17 at 11:30 Dextrose (D50w Syringe) 50 ml Q15M PRN IV DECREASED GLUCOSE; Start 08/28/17 at 11:30 Glucagon (Glucagen) 1 mg Q15M PRN IM DECREASED GLUCOSE; Start 08/28/17 at 11:30 Glucose (Glutose) 15 gm Q15M PRN BUCCAL DECREASED GLUCOSE; Start 08/28/17 at 11 :30 IV Flush 10 ml 10 ml PRN PRN IV IV PROTOCOL; Start 08/28/17 at 14:00 Potassium Chloride (KCl 40 MEQ/250 ML NS) 250 ml @ 62.5 mls/hr ONCE ONCE IVPB Last administered on 08/28/17t 19:38; Admin Dose 62.5 MLS/HR; Start 08/28/17 at 18:30; Stop 08/28/17 at 22:29 MIKE LUONG MD Aug 28, 2017 22:19
[2017-08-28] MEDS ORDERED: PENDING SANTYL ORDER FOR WOUND CARE XX PRN (23:00)
[2017-08-29] VITALS (58 sets, daily range): BP systolic 80–164; BP diastolic 62–98; PULSE 100–125; RESP 21–41
[2017-08-29] MEDS: ACETAMINOPHEN 650 MG SUPP PR SCH ×2 (00:03→05:59)
[2017-08-29] MEDS: ARTIFICIAL TEARS 15 ML OPH BOTH EYES SCH ×8 (00:59→23:23)
[2017-08-29] MEDS: OCULAR LUBRICANT 3.5 GM OPH OINT BOTH EYES SCH ×5 (00:59→23:22)
[2017-08-29] MEDS: ACETAMINOPHEN 650MG/20.3ML CUP PO SCH ×2 (00:59→05:50)
[2017-08-29] MEDS: PIPER-TAZO 3.375 GM IV (PMX) 50 ML IV SCH ×2 (00:59→05:50)
[2017-08-29] MEDS: IPRATROPIUM (HFA) 12.9 GM INHALER INH SCH ×5 (01:12→21:32)
[2017-08-29] MEDS: ALBUTEROL HFA 8 GM INHALER INH SCH ×5 (01:12→21:32)
[2017-08-29] MEDS: PROPOFOL 100 ML IV SCH ×4 (01:45→13:10)
[2017-08-29] MEDS: ACCU-CHEK XX SCH (02:00)
[2017-08-29 05:02] LABS: BASOPHILS % 0.2 % (0.0-2.0); EOSINOPHILS # 0.2 10^3/ul (0.0-0.5); EOSINOPHILS % 1.9 % (0.0-7.0); HEMATOCRIT 52.2 % (42.0-52.0); HEMOGLOBIN 15.6 g/dl (14.0-18.0); LYMPHOCYTES # 0.9 10^3/ul (0.8-2.9); LYMPHOCYTES % 7.7 % (15.0-51.0); MEAN CORPUSCULAR HEMOGLOBIN 27.1 pg (29.0-33.0); MEAN CORPUSCULAR HGB CONC 29.9 g/dl (32.0-37.0); MEAN CORPUSCULAR VOLUME 90.8 fl (82.0-101.0); MEAN PLATELET VOLUME 10.5 fl (7.4-10.4); MONOCYTE # 0.8 10^3/ul (0.3-0.9); MONOCYTES % 6.8 % (0.0-11.0); NEUTROPHIL # 9.2 10^3/ul (1.6-7.5); NEUTROPHILS % 82.9 % (39.0-77.0); PLATELET COUNT 147 10^3/UL (140-415); RED BLOOD COUNT 5.75 10^6/ul (4.70-6.10); RED CELL DISTRIBUTION WIDTH 20.1 % (11.5-14.5); WHITE BLOOD COUNT 11.1 10^3/ul (4.8-10.8)
[2017-08-29] MEDS: DEXTROSE 5%-0.45% NACL 1,000 ML IV SCH (05:38)
[2017-08-29 05:41] LABS: ALBUMIN 2.8 g/dl (3.3-4.9); ALBUMIN/GLOBULIN RATIO 0.93; BILIRUBIN,INDIRECT 0.5 mg/dl (0-1.1); BILIRUBIN,TOTAL 0.5 mg/dl (0.2-1.3); CREATININE 0.83 mg/dl (0.61-1.24); POTASSIUM 3.8 mmol/L (3.5-5.1); TOTAL PROTEIN 5.8 g/dl (6.1-8.1)
[2017-08-29] MEDS: PANTOPRAZOLE (EC) 40 MG TAB PO SCH (05:50)
[2017-08-29] MEDS: INSULIN ASPART [NOVOLOG] 3 ML PEN SC SCH ×5 (05:54→23:29)
[2017-08-29] MEDS: VANCOMYCIN 1.25 GM in SOD CHLORIDE 0.9% 250 ML IVPB SCH ×3 (06:17→22:19)
[2017-08-29] MEDS: ACETAMINOPHEN 650 MG SUPP PR PRN ×2 (08:40→20:57)
[2017-08-29] MEDS: INSULIN GLARGINE [LANtus] 3 ML PEN SC SCH (08:54)
[2017-08-29] MEDS: ASPIRIN 81 MG TAB PO SCH (08:55)
[2017-08-29] MEDS: ENOXAPARIN 40 MG/0.4 ML SYG SC SCH (08:55)
[2017-08-29] MEDS: LEVETIRACETAM 500 MG (PMX) 100 ML IVPB SCH ×2 (09:05→20:44)
--- NOTE | 2017-08-29 09:32 | CONS ---
Date/Time of Note Date/Time of Note DATE: 08/29/17 TIME: 09:31 Consult Date/Type/Reason Admit Date/Time Aug 24, 2017 at 07:05 Initial Consult Date 08/27/17 Type of Consultation: Pulmonary Ordering Provider: MIKE LUONG MD Subjective Still on 100% FiO2, desaturates easily. Unresponsive. Objective Vital Signs Date Time Temp Pulse Resp B/P Pulse Ox O2 Delivery O2 Flow Rate FiO2 08/29/17 08:00 105 08/29/17 07:30 34 132/74 90 Mechanical Ventilator 08/29/17 05:20 100 08/29/17 04:00 101.4 Intake and Output 08/28/17 08/28/17 08/29/17 15:00 23:00 07:00 Intake Total 1261.733 ml 1748.166 ml 852.5 ml Output Total 205 ml 844 ml 414 ml Balance 1056.733 ml 904.166 ml 438.5 ml Exam PHYSICAL EXAMINATION GENERAL: Chronically ill-appearing gentleman intubated on mechanical ventilation VITAL SIGNS: see below. HEENT: Diminished pupillary response significant conjunctival edema CARDIAC: S1, S2, no added sounds or murmurs distant heart sounds CHEST: Diminished air entry bilaterally. ABDOMEN: Mildly distended. Bowel sounds present no guarding or rebound EXTREMITIES: No cyanosis, clubbing edema +1 NEUROLOGIC: Unable to assess Results/Medications Result Diagram: 08/29/17 0437 08/29/17 0437 Results 24 hrs Laboratory Tests Test 08/28/17 11:50 08/28/17 18:13 08/29/17 01:01 08/29/17 04:37 Bedside Glucose 106 106 92 White Blood Count 11.1 H Red Blood Count 5.75 Hemoglobin 15.6 Hematocrit 52.2 H Mean Corpuscular Volume 90.8 Mean Corpuscular Hemoglobin 27.1 L Mean Corpuscular Hemoglobin Concent 29.9 L Red Cell Distribution Width 20.1 H Platelet Count 147 Mean Platelet Volume 10.5 H Neutrophils % 82.9 H Lymphocytes % 7.7 L Monocytes % 6.8 Eosinophils % 1.9 Basophils % 0.2 Nucleated Red Blood Cells % 0.0 Neutrophils # 9.2 H Lymphocytes # 0.9 Monocytes # 0.8 Eosinophils # 0.2 Basophils # 0.0 Nucleated Red Blood Cells # 0.0 Sodium Level 139 Potassium Level 3.8 Chloride Level 105 Carbon Dioxide Level 28 Anion Gap 10 Blood Urea Nitrogen 10 Creatinine 0.83 Glucose Level 101 Calcium Level 8.0 L Total Bilirubin 0.5 Direct Bilirubin 0.00 Indirect Bilirubin 0.5 Aspartate Amino Transf (AST/SGOT) 51 H Alanine Aminotransferase (ALT/SGPT) 40 Alkaline Phosphatase 37 L Total Protein 5.8 L Albumin 2.8 L Globulin 3.00 Albumin/Globulin Ratio 0.93 Vancomycin Level Trough 7.2 L Test 08/29/17 05:54 08/29/17 08:53 Bedside Glucose 97 82 Medications Current Medications Flumazenil (Romazicon) 0.2 mg Q1M PRN IV BENZODIAZEPINE OVERDOSE; Start at 07:30 Naloxone HCl (Narcan) 0.4 mg Q3M PRN IV DECREASED REPIRATORY RATE; Start at 07:30 Ondansetron HCl (Zofran Inj) 4 mg Q6H PRN IV NAUSEA AND/OR VOMITING; Start 08/24/17 at 07:30 Nitroglycerin (Nitroglycerin (Sl Tab) 0.4 Mg) 1 tab Q5M PRN SL CHEST PAIN; Start 08/24/17 at 07:30 Acetaminophen (Tylenol Liquid) 650 mg Q6H PRN PO PAIN LEVEL 1-3 OR FEVER; Start 08/24/17 at 07:30 Acetaminophen (Tylenol Tab) 650 mg Q6H PRN PO PAIN LEVEL 1-3 OR FEVER; Start 08/24/17 at 07:30 Acetaminophen (Tylenol Supp) 650 mg Q4H PRN [place] PAIN LEVEL 1-3 OR TEMP > 37C; Start 08/24/17 at 07:30 Ibuprofen (Motrin) 600 mg Q6H PRN PO PAIN LEVEL 1-3 OR FEVER; Start 08/24/17 at 07:30 Acetaminophen/ Hydrocodone Bitart ([place] (5/325)) 1 tab Q6H PRN PO PAIN LEVEL 4 -6; Start 08/24/17 at 07:30 Morphine Sulfate (morphine) 2 mg Q4H PRN IV PAIN LEVEL 7-10 Last administered on 08/27/17 03:38; Admin Dose 2 MG; Start 08/24/17 at 07:30 Lorazepam (Ativan) 1 mg Q2H PRN IV ANXIETY Last administered on 08/27/17 04:00 ; Admin Dose 1 MG; Start 08/24/17 at 07:30 Docusate Sodium (Colace) 100 mg Q12H PRN PO CONSTIPATION; Start 08/24/17 at 07: 30 Magnesium Hydroxide (Milk Of Mag) 30 ml DAILY PRN PO CONSTIPATION; Start at 07:30 Bisacodyl (Dulcolax) 5 mg DAILY PRN PO CONSTIPATION; Start 08/24/17 at 07:30 Bisacodyl (Dulcolax Supp) 10 mg DAILY PRN [place] CONSTIPATION; Start 08/24/17 at 07 :30 Sodium Biphosphate/ Sodium Phosphate (Fleet Enema) 133 ml DAILY PRN [place] CONSTIPATION; Start 08/24/17 at 07:30 Eye Lubricant (Artificial Tears Oph) 1 drop TID BOTH EYES Last administered on 08/29/17 08:48; Admin Dose 1 DROP; Start 08/24/17 at 09:00 Enoxaparin Sodium 40 mg 40 mg DAILY SC Last administered on 08/29/17 08:55; Admin Dose 40 MG; Start 08/24/17 at 09:00 Piperacillin Sod/ Tazobactam Sod (Zosyn 3.375gm/ 50 ml (Pmx)) 50 ml @ 0 mls/hr Q6 IV Last administered on 08/29/17 05:50; Admin Dose 100 MLS/HR; Start at 12:00 Pantoprazole (Protonix Tab) 40 mg DAILY@06 PO Last administered on 08/29/17 05 :50; Admin Dose 40 MG; Start 08/25/17 at 06:00 Hydralazine HCl (Apresoline) 10 mg Q6H PRN IV ELEVATED BLOOD PRESSURE; Start 08/24/17 at 15:30 Levothyroxine Sodium (Synthroid) 25 mcg DAILY@06 NGT Last administered on 09:07; Admin Dose 25 MCG; Start 08/25/17 at 06:00 Meperidine HCl (Demerol) 12.5 mg Q4H PRN IV POST OPERATIVE SHIVERING; Start at 18:30 Meperidine HCl (Demerol) 25 mg Q4H PRN IV POST OPERATIVE SHIVERING; Start 08/24 at 18:30 Eye Lubricant (Akwa Oint) 1 applic Q6 BOTH EYES Last administered on 08/29/17 05:45; Admin Dose 1 APPLIC; Start 08/24/17 at 18:30 Eye Lubricant 2 drop 2 drop Q6 BOTH EYES Last administered on 08/29/17 05:44; Admin Dose 2 DROP; Start 08/24/17 at 18:30 Propofol 100 ml @ 3.75 mls/hr Q12H IV Last administered on 08/29/17 04:37; Admin Dose 37.5 MLS/HR; Start 08/24/17 at 19:30 Vecuronium [place] 100 mg/ Dextrose 100 ml @ 6.25 mls/hr TITRATE IV Last administered on 08/25/17 10:44; Admin Dose 2.5 MLS/HR; Start 08/25/17 at 10:00 Levetiracetam 100 ml @ 400 mls/hr Q12 IVPB Last administered on 08/29/17 09: 05; Admin Dose 400 MLS/HR; Start 08/25/17 at 10:00 Norepinephrine 16 mg/Dextrose 500 ml @ 1.87 mls/hr TITRATE IV Last administered on 08/26/17 14:32; Admin Dose 22.5 MLS/HR; Start 08/26/17 at 13:30 Fentanyl 100 ml @ 2.5 mls/hr TITRATE IV Last administered on 08/27/17 16:30; Admin Dose 9.5 MLS/HR; Start 08/27/17 at 09:30 Dextrose/Sodium Chloride (D5-1/2ns) 1,000 ml @ 70 mls/hr [id number] IV Last administered on 08/29/17 05:38; Admin Dose 70 MLS/HR; Start 08/27/17 at 11:00 Aspirin (Aspirin) 81 mg DAILY PO Last administered on 08/29/17 08:55; Admin Dose 81 MG; Start 08/28/17 at 09:00 Insulin Glargine (Lantus) 15 unit DAILY@08 SC Last administered on 08/29/17 08 :54; Admin Dose 15 UNIT; Start 08/27/17 at 13:00 Diagnostic Test (Pha) (Accu-Chek) 1 ea 02 XX ; Start 08/29/17 at 02:00 Insulin Aspart (Novolog Insulin Pen) NOVOLOG *MILD* ALGORI... Q6 SC ; Start 08/28/17 at 12:00 Miscellaneous Information 1 ea NOTE XX ; Start 08/28/17 at 11:30 Glucose (Glutose) 15 gm Q15M PRN PO DECREASED GLUCOSE; Start 08/28/17 at 11:30 Glucose (Glutose) 22.5 gm Q15M PRN PO DECREASED GLUCOSE; Start 08/28/17 at 11: 30 Dextrose (D50w Syringe) 25 ml Q15M PRN IV DECREASED GLUCOSE; Start 08/28/17 at 11:30 Dextrose (D50w Syringe) 50 ml Q15M PRN IV DECREASED GLUCOSE; Start 08/28/17 at 11:30 Glucagon (Glucagen) 1 mg Q15M PRN IM DECREASED GLUCOSE; Start 08/28/17 at 11:30 Glucose (Glutose) 15 gm Q15M PRN BUCCAL DECREASED GLUCOSE; Start 08/28/17 at 11 :30 IV Flush (NS 10 ml) 10 ml PRN PRN IV IV PROTOCOL; Start 08/28/17 at 14:00 Miscellaneous Information This patient almanza... PRN PRN XX WOUND CARE; Start 08/28 at 23:00 Vancomycin HCl/ Sodium Chloride (Vancocin/NS) 250 ml @ 83.333 mls/ hr Q8H IVPB ; Start 08/29/17 at 14:00 Miscellaneous Information (*Rx Drug Level Order Reminder*) VANCOMYCIN TROUGH AT 0500 ONCE ONCE XX ; Start 08/30/17 at 05:00; Stop 08/30/17 at 05:01 Assessment/Plan Chief Complaint/Hosp Course IMP: 1. s/p Cardiopulmonary arrest--likely due to aspiration and central airway obstruction 2. Seizure Disorder 3. Gram + bacteremia--likely contaminant 4. Possible anoxic brain injury 5. CAP vs. aspiration, no evidence of pulmonary embolism on CT angiogram 6. Morbid obesity 7. DM RECS: 1. Continue mechanical ventilation for weaning, decrease FiO2 and PEEP as tolerated. Currently on volume control ventilation. 2. Anti-epileptic Rx and propofol gtt 3. Nasogastric tube feeding as tolerated 4. Abx 5. F/U Cx's 6. DVT and GI prophylaxis 7. EEG and neuro evaluation. 8. Empiric steroid trial. 35 min cc time Problems: JULIANA WASHINGTON MD, [facility] Aug 29, 2017 09:32
--- NOTE | 2017-08-29 12:13 | CONS ---
Date/Time of Note Date/Time of Note DATE: 08/29/17 TIME: 12:09 Assessment/Plan Assessment/Plan Chief Complaint/Hosp Course IMPRESSION: 1. Pulseless electrical activity cardiac arrest.-on levophed still. EF 50% by echo this admit 2. Abnormal electrocardiogram with diffuse ST depressions but in the setting of cardiac arrest. 3. Hypotension-on levophed 4. Tachycardia consistent with sinus tachycardia. 5. Encephalopathy. 6. History of flu-like illness. 7. Hypothyroidism. 8. Hematuria. 9. Seizure prior to government gauger arrival 10. Lactic acidosis. 11. Leukocytosis. 12. Positive troponin-minimal in setting of cardiac arrest and now trended negative 14. bacteremia 15. Fevers Recc: -Tele in ICU -continue abx's and f/u cx data -Follow MS closely -Continue asa -start low dose BB -treat fevers -Contineu lasix diuresis but will decrease to daily Problems: Consultation Date/Type/Reason Admit Date/Time Aug 24, 2017 at 07:05 Initial Consult Date 08/27/17 Type of Consultation: cardiology Reason for Consultation cardiac arrest Referring Provider: MIKE LUONG MD Exam/Review of Systems Vital Signs Vitals Vital Signs Date Time Temp Pulse Resp B/P Pulse Ox O2 Delivery O2 Flow Rate FiO2 08/29/17 08:00 105 08/29/17 07:30 34 132/74 90 Mechanical Ventilator 08/29/17 05:20 100 08/29/17 04:00 101.4 Intake and Output 08/28/17 08/28/17 08/29/17 15:00 23:00 07:00 Intake Total 1261.733 ml 1748.166 ml 852.5 ml Output Total 205 ml 844 ml 414 ml Balance 1056.733 ml 904.166 ml 438.5 ml Exam Review of Systems: CONSTITUTIONAL: No fevers, chills. PULMONARY: No sob CARDIOVASCULAR: No chest pain/palpitations GASTROINTESTINAL: No nausea/vomiting. GENITOURINARY: No hematuria/dysuria. MUSCULOSKELETAL: No myagias/arthalgias. PSYCHIATRIC: The patient denies depression. NEUROLOGIC: No weakness Constitutional: other (encephalopathic, sedated) Psych: no complaints Head: normocephalic ENMT: mucosa pink and moist Neck: jvd (8-9 cm water), supple Respiratory: other (upper airway rhoncherous sounds) Cardiovascular: regular rate and rhythm (tachycardic, ) Gastrointestinal: non-tender, soft Musculoskeletal: muscle tone (normal) Extremities: edema (none) Neurological: other (encephalopathic) Results Result Diagram: 08/29/17 0437 08/29/17 0437 Results 24 hrs Laboratory Tests Test 08/28/17 18:13 08/29/17 01:01 08/29/17 04:37 08/29/17 05:54 Bedside Glucose 106 92 97 White Blood Count 11.1 H Red Blood Count 5.75 Hemoglobin 15.6 Hematocrit 52.2 H Mean Corpuscular Volume 90.8 Mean Corpuscular Hemoglobin 27.1 L Mean Corpuscular Hemoglobin Concent 29.9 L Red Cell Distribution Width 20.1 H Platelet Count 147 Mean Platelet Volume 10.5 H Neutrophils % 82.9 H Lymphocytes % 7.7 L Monocytes % 6.8 Eosinophils % 1.9 Basophils % 0.2 Nucleated Red Blood Cells % 0.0 Neutrophils # 9.2 H Lymphocytes # 0.9 Monocytes # 0.8 Eosinophils # 0.2 Basophils # 0.0 Nucleated Red Blood Cells # 0.0 Sodium Level 139 Potassium Level 3.8 Chloride Level 105 Carbon Dioxide Level 28 Anion Gap 10 Blood Urea Nitrogen 10 Creatinine 0.83 Glucose Level 101 Calcium Level 8.0 L Total Bilirubin 0.5 Direct Bilirubin 0.00 Indirect Bilirubin 0.5 Aspartate Amino Transf (AST/SGOT) 51 H Alanine Aminotransferase (ALT/SGPT) 40 Alkaline Phosphatase 37 L Total Protein 5.8 L Albumin 2.8 L Globulin 3.00 Albumin/Globulin Ratio 0.93 Vancomycin Level Trough 7.2 L Test 08/29/17 08:53 Bedside Glucose 82 Medications Medications Current Medications Flumazenil (Romazicon) 0.2 mg Q1M PRN IV BENZODIAZEPINE OVERDOSE; Start at 07:30 Naloxone HCl (Narcan) 0.4 mg Q3M PRN IV DECREASED REPIRATORY RATE; Start at 07:30 Ondansetron HCl (Zofran Inj) 4 mg Q6H PRN IV NAUSEA AND/OR VOMITING; Start 08/24/17 at 07:30 Nitroglycerin (Nitroglycerin (Sl Tab) 0.4 Mg) 1 tab Q5M PRN SL CHEST PAIN; Start 08/24/17 at 07:30 Acetaminophen (Tylenol Liquid) 650 mg Q6H PRN PO PAIN LEVEL 1-3 OR FEVER; Start 08/24/17 at 07:30 Acetaminophen (Tylenol Tab) 650 mg Q6H PRN PO PAIN LEVEL 1-3 OR FEVER; Start 08/24/17 at 07:30 Acetaminophen (Tylenol Supp) 650 mg Q4H PRN [place] PAIN LEVEL 1-3 OR TEMP > 37C; Start 08/24/17 at 07:30 Ibuprofen (Motrin) 600 mg Q6H PRN PO PAIN LEVEL 1-3 OR FEVER; Start 08/24/17 at 07:30 Acetaminophen/ Hydrocodone Bitart ([place] (5/325)) 1 tab Q6H PRN PO PAIN LEVEL 4 -6; Start 08/24/17 at 07:30 Morphine Sulfate (morphine) 2 mg Q4H PRN IV PAIN LEVEL 7-10 Last administered on 08/27/17 03:38; Admin Dose 2 MG; Start 08/24/17 at 07:30 Lorazepam (Ativan) 1 mg Q2H PRN IV ANXIETY Last administered on 08/27/17 04:00 ; Admin Dose 1 MG; Start 08/24/17 at 07:30 Docusate Sodium (Colace) 100 mg Q12H PRN PO CONSTIPATION; Start 08/24/17 at 07: 30 Magnesium Hydroxide (Milk Of Mag) 30 ml DAILY PRN PO CONSTIPATION; Start at 07:30 Bisacodyl (Dulcolax) 5 mg DAILY PRN PO CONSTIPATION; Start 08/24/17 at 07:30 Bisacodyl (Dulcolax Supp) 10 mg DAILY PRN [place] CONSTIPATION; Start 08/24/17 at 07 :30 Sodium Biphosphate/ Sodium Phosphate (Fleet Enema) 133 ml DAILY PRN [place] CONSTIPATION; Start 08/24/17 at 07:30 Eye Lubricant (Artificial Tears Oph) 1 drop TID BOTH EYES Last administered on 08/29/17 08:48; Admin Dose 1 DROP; Start 08/24/17 at 09:00 Enoxaparin Sodium 40 mg 40 mg DAILY SC Last administered on 08/29/17 08:55; Admin Dose 40 MG; Start 08/24/17 at 09:00 Piperacillin Sod/ Tazobactam Sod (Zosyn 3.375gm/ 50 ml (Pmx)) 50 ml @ 0 mls/hr Q6 IV Last administered on 08/29/17 05:50; Admin Dose 100 MLS/HR; Start at 12:00 Pantoprazole (Protonix Tab) 40 mg DAILY@06 PO Last administered on 08/29/17 05 :50; Admin Dose 40 MG; Start 08/25/17 at 06:00 Hydralazine HCl (Apresoline) 10 mg Q6H PRN IV ELEVATED BLOOD PRESSURE; Start 08/24/17 at 15:30 Levothyroxine Sodium (Synthroid) 25 mcg DAILY@06 NGT Last administered on 09:07; Admin Dose 25 MCG; Start 08/25/17 at 06:00 Meperidine HCl (Demerol) 12.5 mg Q4H PRN IV POST OPERATIVE SHIVERING; Start at 18:30 Meperidine HCl (Demerol) 25 mg Q4H PRN IV POST OPERATIVE SHIVERING; Start 08/24 at 18:30 Eye Lubricant (Akwa Oint) 1 applic Q6 BOTH EYES Last administered on 08/29/17 05:45; Admin Dose 1 APPLIC; Start 08/24/17 at 18:30 Eye Lubricant 2 drop 2 drop Q6 BOTH EYES Last administered on 08/29/17 05:44; Admin Dose 2 DROP; Start 08/24/17 at 18:30 Propofol 100 ml @ 3.75 mls/hr Q12H IV Last administered on 08/29/17 10:19; Admin Dose 37.5 MLS/HR; Start 08/24/17 at 19:30 Vecuronium [place] 100 mg/ Dextrose 100 ml @ 6.25 mls/hr TITRATE IV Last administered on 08/25/17 10:44; Admin Dose 2.5 MLS/HR; Start 08/25/17 at 10:00 Levetiracetam 100 ml @ 400 mls/hr Q12 IVPB Last administered on 08/29/17 09: 05; Admin Dose 400 MLS/HR; Start 08/25/17 at 10:00 Norepinephrine 16 mg/Dextrose 500 ml @ 1.87 mls/hr TITRATE IV Last administered on 08/26/17 14:32; Admin Dose 22.5 MLS/HR; Start 08/26/17 at 13:30 Fentanyl 100 ml @ 2.5 mls/hr TITRATE IV Last administered on 08/27/17 16:30; Admin Dose 9.5 MLS/HR; Start 08/27/17 at 09:30 Dextrose/Sodium Chloride (D5-1/2ns) 1,000 ml @ 40 mls/hr Q24H IV Last administered on 08/29/17 05:38; Admin Dose 70 MLS/HR; Start 08/27/17 at 11:00 Aspirin (Aspirin) 81 mg DAILY PO Last administered on 08/29/17 08:55; Admin Dose 81 MG; Start 08/28/17 at 09:00 Insulin Glargine (Lantus) 15 unit DAILY@08 SC Last administered on 08/29/17 08 :54; Admin Dose 15 UNIT; Start 08/27/17 at 13:00 Diagnostic Test (Pha) (Accu-Chek) 1 ea 02 XX ; Start 08/29/17 at 02:00 Insulin Aspart (Novolog Insulin Pen) NOVOLOG *MILD* ALGORI... Q6 SC ; Start 08/28/17 at 12:00 Miscellaneous Information 1 ea NOTE XX ; Start 08/28/17 at 11:30 Glucose (Glutose) 15 gm Q15M PRN PO DECREASED GLUCOSE; Start 08/28/17 at 11:30 Glucose (Glutose) 22.5 gm Q15M PRN PO DECREASED GLUCOSE; Start 08/28/17 at 11: 30 Dextrose (D50w Syringe) 25 ml Q15M PRN IV DECREASED GLUCOSE; Start 08/28/17 at 11:30 Dextrose (D50w Syringe) 50 ml Q15M PRN IV DECREASED GLUCOSE; Start 08/28/17 at 11:30 Glucagon (Glucagen) 1 mg Q15M PRN IM DECREASED GLUCOSE; Start 08/28/17 at 11:30 Glucose (Glutose) 15 gm Q15M PRN BUCCAL DECREASED GLUCOSE; Start 08/28/17 at 11 :30 IV Flush (NS 10 ml) 10 ml PRN PRN IV IV PROTOCOL; Start 08/28/17 at 14:00 Miscellaneous Information This patient almanza... PRN PRN XX WOUND CARE; Start 08/28 at 23:00 Vancomycin HCl/ Sodium Chloride (Vancocin/NS) 250 ml @ 83.333 mls/ hr Q8H IVPB ; Start 08/29/17 at 14:00 Miscellaneous Information (*Rx Drug Level Order Reminder*) VANCOMYCIN TROUGH AT 0500 ONCE ONCE XX ; Start 08/30/17 at 05:00; Stop 08/30/17 at 05:01 Methylprednisolone Sodium Succinate (Solu-Medrol) 60 mg Q6 IV ; Start 08/29/17 at 12:00 SKYLAR ABDALLA Aug 29, 2017 12:13
[2017-08-29] MEDS: METHYLPREDNISOLONE 125 MG INJ IV SCH ×3 (13:18→23:30)
[2017-08-29] MEDS: LEVOFLOXACIN 500MG/D5W (PMX) 100 ML IVPB SCH (13:18)
--- NOTE | 2017-08-29 13:42 | PN ---
DATE: 08/29/2017 SUBJECTIVE: No acute changes. The patient remains on high PEEP of 16 and FIO2 of 100. VITAL SIGNS: He continues to spike fevers with a T-max of 101.5. T-current 101, pulse 130, respira tions 30, blood pressure 120/65, saturation 92% on vent. LABORATORIES: WBC 11.1, hemoglobin and hematocrit 15.6 and 52.2, platelets 147, neutrophils 82.9. BUN 10, creatinine 0.83. MICROBIOLOGY: Repeated blood cultures and urine cultures remain negative. Sputum culture pending, preliminary negative. DIAGNOSTICS: Chest x-ray from yesterday revealed mild atelectasis at the lung bases, left worse martinez n right. INDWELLINGS: Endotracheal tube, NG tube, PICC line, left upper extremity placed on 08/28/2017 and F oley catheter. ANTIMICROBIALS: Patient remains on: 1. Vancomycin. 2. Zosyn. PHYSICAL EXAMINATION: GENERAL: This is a morbidly obese, middle-aged man who is intubated and sedated, in no dis tress. HEENT: Head atraumatic, normocephalic. Sclerae anicteric with significant scleral edema. NECK: Obese. CHEST: Rise symmetrical. Breath sounds with bilateral rhonchi. HEART: S1, S2, tachycardic. ABDOMEN: Distended, bowel tones hypoactive. EXTREMITIES: Bilateral edema. ASSESSMENT: 1. Sepsis with ongoing fevers. 2. Acute respiratory failure, possibly adult respiratory distress syndrome. 1. Pneumonia, possibly aspiration event. 2. Status post coagulase-negative staph bacteremia consistent with contaminant. 3. Diabetes. 4. Morbid obesity. PLAN: We are going to change Zosyn to meropenem and start Levaquin. Continue vancomycin for now. Continue vent management as per pulmonary. Follow recommendations of consultants. Overall prognosi s guarded. Dictated By: BEKA WATKINS PHARMACY CLINICAL SPECIALIST for JORDAN FORRESTER/YESI Conf#: [id number] DID#: [id number]
[2017-08-29] MEDS: ACETAMINOPHEN 325 MG TAB PO PRN (14:02)
[2017-08-29] MEDS: POTASSIUM CHLORIDE 50 ML IVPB PRN (14:08)
[2017-08-29] MEDS: MEROPENEM 500MG/50 ML (PMX) 50 ML IVPB SCH ×2 (14:29→21:36)
[2017-08-29] MEDS: hydrALAzine 20 MG INJ IV PRN (14:35)
[2017-08-29] MEDS: FENTAnyl (DRIP) 1000 mcg/100mL 100 ML IV SCH ×2 (15:39→23:17)
[2017-08-29] MEDS: MIDAZOLAM (DRIP) 50 mg/50 mL 50 ML IV SCH ×2 (15:58→17:21)
[2017-08-29] MEDS ORDERED: FUROSEMIDE 40 MG INJ IV SCH (18:00)
--- NOTE | 2017-08-29 18:27 | CONS ---
Date/Time of Note Date/Time of Note DATE: 08/29/17 TIME: 18:25 Assessment/Plan Assessment/Plan Chief Complaint/Hosp Course 36 yo with #Polycythemia -Hg has come down to 15 but Hct is still greater than 45 -this is either secondary polycythemia from an underlying hypoxemic condition vs primary polycythemia rubra vera -the most common cause of secondary polycythemia is from chronic smoking but it is unclear for how long this patient smoked for and for how long -Erythropoietin level pending. A low erythropoietin level is most consistent with primary polycythemia rubra vera v a normal erythropoietin level is consistent with a secondary polycythemia -will also check FORTUNATO 2 mutation analysis as this positive in > 95% of cases of Primary polycythemia rubra vera #s/p Cardiac Arrest -continue ICU care -pt on low dose pressors and s/o hypothermia protocol #Diabetes -on insulin drip #Anoxic Brain Injury -pt still not responsive -neuro on board -EEG done -continue to monitor mental status -pt currently on sedation approximately 30 was spent at bedside and in coordination of this critical patient's care Problems: Consultation Date/Type/Reason Admit Date/Time Aug 24, 2017 at 07:05 Initial Consult Date 08/27/17 Type of Consultation: Hematology Reason for Consultation polycythemia Referring Provider: MIKE LUONG MD 24 HR Interval Summary Free Text/Dictation pt remains unresponsive Exam/Review of Systems Vital Signs Vitals Vital Signs Date Time Temp Pulse Resp B/P Pulse Ox O2 Delivery O2 Flow Rate FiO2 08/29/17 18:20 112 33 87 100 08/29/17 16:00 97.3 138/71 Mechanical Ventilator Intake and Output 08/28/17 08/28/17 08/29/17 15:00 23:00 07:00 Intake Total 1261.733 ml 1748.166 ml 1043.333 ml Output Total 205 ml 844 ml 484 ml Balance 1056.733 ml 904.166 ml 559.333 ml Exam ENMT: intubated Neck: non-tender, supple Respiratory: clear to auscultation, normal air movement Cardiovascular: regular rate and rhythm Musculoskeletal: nl extremities to inspection Extremities: normal pulses Results Result Diagram: 08/29/17 0437 08/29/17 0437 Results 24 hrs Laboratory Tests Test 08/29/17 01:01 08/29/17 04:37 08/29/17 04:45 08/29/17 05:54 Bedside Glucose 92 97 White Blood Count 11.1 H Red Blood Count 5.75 Hemoglobin 15.6 Hematocrit 52.2 H Mean Corpuscular Volume 90.8 Mean Corpuscular Hemoglobin 27.1 L Mean Corpuscular Hemoglobin Concent 29.9 L Red Cell Distribution Width 20.1 H Platelet Count 147 Mean Platelet Volume 10.5 H Neutrophils % 82.9 H Lymphocytes % 7.7 L Monocytes % 6.8 Eosinophils % 1.9 Basophils % 0.2 Nucleated Red Blood Cells % 0.0 Neutrophils # 9.2 H Lymphocytes # 0.9 Monocytes # 0.8 Eosinophils # 0.2 Basophils # 0.0 Nucleated Red Blood Cells # 0.0 Sodium Level 139 Potassium Level 3.8 Chloride Level 105 Carbon Dioxide Level 28 Anion Gap 10 Blood Urea Nitrogen 10 Creatinine 0.83 Glucose Level 101 Calcium Level 8.0 L Total Bilirubin 0.5 Direct Bilirubin 0.00 Indirect Bilirubin 0.5 Aspartate Amino Transf (AST/SGOT) 51 H Alanine Aminotransferase (ALT/SGPT) 40 Alkaline Phosphatase 37 L Total Protein 5.8 L Albumin 2.8 L Globulin 3.00 Albumin/Globulin Ratio 0.93 Vancomycin Level Trough 7.2 L HIV (1&2) Antibody NEGATIVE Test 08/29/17 08:53 08/29/17 13:22 08/29/17 17:15 Bedside Glucose 82 85 99 Medications Medications Current Medications Flumazenil (Romazicon) 0.2 mg Q1M PRN IV BENZODIAZEPINE OVERDOSE; Start at 07:30 Naloxone HCl (Narcan) 0.4 mg Q3M PRN IV DECREASED REPIRATORY RATE; Start at 07:30 Ondansetron HCl (Zofran Inj) 4 mg Q6H PRN IV NAUSEA AND/OR VOMITING; Start 08/24/17 at 07:30 Nitroglycerin (Nitroglycerin (Sl Tab) 0.4 Mg) 1 tab Q5M PRN SL CHEST PAIN; Start 08/24/17 at 07:30 Acetaminophen (Tylenol Liquid) 650 mg Q6H PRN PO PAIN LEVEL 1-3 OR FEVER; Start 08/24/17 at 07:30 Acetaminophen (Tylenol Tab) 650 mg Q6H PRN PO PAIN LEVEL 1-3 OR FEVER Last administered on 08/29/17 14:02; Admin Dose 650 MG; Start 08/24/17 at 07:30 Acetaminophen (Tylenol Supp) 650 mg Q4H PRN ID PAIN LEVEL 1-3 OR TEMP > 37C; Start 08/24/17 at 07:30 Ibuprofen (Motrin) 600 mg Q6H PRN PO PAIN LEVEL 1-3 OR FEVER; Start 08/24/17 at 07:30 Acetaminophen/ Hydrocodone Bitart ([place] (5/325)) 1 tab Q6H PRN PO PAIN LEVEL 4 -6; Start 08/24/17 at 07:30 Morphine Sulfate (morphine) 2 mg Q4H PRN IV PAIN LEVEL 7-10 Last administered on 08/27/17 03:38; Admin Dose 2 MG; Start 08/24/17 at 07:30 Lorazepam (Ativan) 1 mg Q2H PRN IV ANXIETY Last administered on 08/27/17 04:00 ; Admin Dose 1 MG; Start 08/24/17 at 07:30 Docusate Sodium (Colace) 100 mg Q12H PRN PO CONSTIPATION; Start 08/24/17 at 07: 30 Magnesium Hydroxide (Milk Of Mag) 30 ml DAILY PRN PO CONSTIPATION; Start at 07:30 Bisacodyl (Dulcolax) 5 mg DAILY PRN PO CONSTIPATION; Start 08/24/17 at 07:30 Bisacodyl (Dulcolax Supp) 10 mg DAILY PRN ID CONSTIPATION; Start 08/24/17 at 07 :30 Sodium Biphosphate/ Sodium Phosphate (Fleet Enema) 133 ml DAILY PRN ID CONSTIPATION; Start 08/24/17 at 07:30 Eye Lubricant (Artificial Tears Oph) 1 drop TID BOTH EYES Last administered on 08/29/17 13:11; Admin Dose 1 DROP; Start 08/24/17 at 09:00 Enoxaparin Sodium (Lovenox) 40 mg DAILY SC Last administered on 08/29/17 08:55 ; Admin Dose 40 MG; Start 08/24/17 at 09:00 Pantoprazole (Protonix Tab) 40 mg DAILY@06 PO Last administered on 08/29/17 05 :50; Admin Dose 40 MG; Start 08/25/17 at 06:00 Hydralazine HCl (Apresoline) 10 mg Q6H PRN IV ELEVATED BLOOD PRESSURE Last administered on 08/29/17 14:35; Admin Dose 10 MG; Start 08/24/17 at 15:30 Levothyroxine Sodium (Synthroid) 25 mcg DAILY@06 NGT Last administered on 09:07; Admin Dose 25 MCG; Start 08/25/17 at 06:00 Meperidine HCl (Demerol) 12.5 mg Q4H PRN IV POST OPERATIVE SHIVERING; Start at 18:30 Meperidine HCl (Demerol) 25 mg Q4H PRN IV POST OPERATIVE SHIVERING; Start 08/24 at 18:30 Eye Lubricant (Akwa Oint) 1 applic Q6 BOTH EYES Last administered on 08/29/17 17:16; Admin Dose 1 APPLIC; Start 08/24/17 at 18:30 Eye Lubricant 2 drop 2 drop Q6 BOTH EYES Last administered on 08/29/17 17:16; Admin Dose 2 DROP; Start 08/24/17 at 18:30 Propofol 100 ml @ 3.75 mls/hr Q12H IV Last administered on 08/29/17 13:10; Admin Dose 37.5 MLS/HR; Start 08/24/17 at 19:30 Vecuronium [place] 100 mg/ Dextrose 100 ml @ 6.25 mls/hr TITRATE IV Last administered on 08/25/17 10:44; Admin Dose 2.5 MLS/HR; Start 08/25/17 at 10:00 Levetiracetam 100 ml @ 400 mls/hr Q12 IVPB Last administered on 08/29/17 09: 05; Admin Dose 400 MLS/HR; Start 08/25/17 at 10:00 Norepinephrine 16 mg/Dextrose 500 ml @ 1.87 mls/hr TITRATE IV Last administered on 08/26/17 14:32; Admin Dose 22.5 MLS/HR; Start 08/26/17 at 13:30 Fentanyl 100 ml @ 2.5 mls/hr TITRATE IV Last administered on 08/29/17 15:39; Admin Dose 1 MLS/HR; Start 08/27/17 at 09:30 Dextrose/Sodium Chloride (D5-1/2ns) 1,000 ml @ 40 mls/hr Q24H IV Last administered on 08/29/17 05:38; Admin Dose 70 MLS/HR; Start 08/27/17 at 11:00 Aspirin (Aspirin) 81 mg DAILY PO Last administered on 08/29/17 08:55; Admin Dose 81 MG; Start 08/28/17 at 09:00 Insulin Glargine (Lantus) 15 unit DAILY@08 SC Last administered on 08/29/17 08 :54; Admin Dose 15 UNIT; Start 08/27/17 at 13:00 Diagnostic Test (Pha) (Accu-Chek) 1 ea 02 XX ; Start 08/29/17 at 02:00 Insulin Aspart (Novolog Insulin Pen) NOVOLOG *MILD* ALGORI... Q6 SC ; Start 08/28/17 at 12:00 Miscellaneous Information 1 ea NOTE XX ; Start 08/28/17 at 11:30 Glucose (Glutose) 15 gm Q15M PRN PO DECREASED GLUCOSE; Start 08/28/17 at 11:30 Glucose (Glutose) 22.5 gm Q15M PRN PO DECREASED GLUCOSE; Start 08/28/17 at 11: 30 Dextrose (D50w Syringe) 25 ml Q15M PRN IV DECREASED GLUCOSE; Start 08/28/17 at 11:30 Dextrose (D50w Syringe) 50 ml Q15M PRN IV DECREASED GLUCOSE; Start 08/28/17 at 11:30 Glucagon (Glucagen) 1 mg Q15M PRN IM DECREASED GLUCOSE; Start 08/28/17 at 11:30 Glucose (Glutose) 15 gm Q15M PRN BUCCAL DECREASED GLUCOSE; Start 08/28/17 at 11 :30 IV Flush (NS 10 ml) 10 ml PRN PRN IV IV PROTOCOL; Start 08/28/17 at 14:00 Miscellaneous Information This patient almanza... PRN PRN XX WOUND CARE; Start 08/28 at 23:00 Vancomycin HCl/ Sodium Chloride (Vancocin/NS) 250 ml @ 83.333 mls/ hr Q8H IVPB Last administered on 08/29/17 14:30; Admin Dose 83.333 MLS/HR; Start at 14:00 Miscellaneous Information (*Rx Drug Level Order Reminder*) VANCOMYCIN TROUGH AT 0500 ONCE ONCE XX ; Start 08/30/17 at 05:00; Stop 08/30/17 at 05:01 Methylprednisolone Sodium Succinate (Solu-Medrol) 60 mg Q6 IV Last administered on 08/29/17 17:16; Admin Dose 60 MG; Start 08/29/17 at 12:00 Furosemide (Lasix) 40 mg DAILY IV ; Start 08/30/17 at 09:00 Metoprolol Tartrate 25 mg 25 mg BID PO ; Start 08/29/17 at 21:00 Levofloxacin/ Dextrose 100 ml @ 100 mls/hr Q24H IVPB Last administered on 08/29 13:18; Admin Dose 100 MLS/HR; Start 08/29/17 at 13:00 Meropenem/Sodium Chloride 50 ml @ 200 mls/hr Q8 IVPB Last administered on 08/29 14:29; Admin Dose 200 MLS/HR; Start 08/29/17 at 14:00 Midazolam HCl (Versed) 50 ml @ 1 mls/hr TITRATE IV Last administered on 17:21; Admin Dose 5 MLS/HR; Start 08/29/17 at 16:00 MARCELL MILLER M.D. Aug 29, 2017 18:27
--- NOTE | 2017-08-29 18:57 | PN ---
Date/Time of Note Date/Time of Note DATE: 08/29/17 TIME: 18:44 Assessment/Plan VTE Prophylaxis VTE Prophylaxis Intervention: other Lines/Catheters IV Catheter Type (from Nrs): PICC Line Central line still needed: Yes Urinary Cath still in place: Yes Reason Cath still needed: urinary retention (on vent), other (indicate) Assessment/Plan Chief Complaint/Hosp Course 1. s/p cardiac arrest 2. Sepsis with Gram + bacteremia 3. Morbid obesity 4. Hypertension hx 5. history of flu like sickness before admission 6. Anemia 7. Seizure Disorder 8. Possible anoxic brain injury. 7. Underlying diabetes mellitus. 8 obesity 9 polycythemi plan antibiotic per pull and cardio and neuro and dr keene per id lasix per nurse annette no feeding per dietary and dr walters and no tpn Problems: Subjective 24 Hr Interval Summary Subjective hx not possible: other (on vent,d/w family) Exam/Review of Systems Vital Signs Vitals Vital Signs Date Time Temp Pulse Resp B/P Pulse Ox O2 Delivery O2 Flow Rate FiO2 08/29/17 18:20 112 33 87 100 08/29/17 16:00 97.3 138/71 Mechanical Ventilator Intake and Output 08/28/17 08/28/17 08/29/17 15:00 23:00 07:00 Intake Total 1261.733 ml 1748.166 ml 1043.333 ml Output Total 205 ml 844 ml 484 ml Balance 1056.733 ml 904.166 ml 559.333 ml Exam Respiratory: diminished breath sounds Cardiovascular: regular rate and rhythm Gastrointestinal: bowel sounds (+), soft Extremities: edema (+) Neurological: unresponsive Results Result Diagram: 08/29/17 0437 08/29/17 0437 Results 24 hrs Laboratory Tests Test 08/29/17 01:01 08/29/17 04:37 08/29/17 04:45 08/29/17 05:54 Bedside Glucose 92 97 White Blood Count 11.1 H Red Blood Count 5.75 Hemoglobin 15.6 Hematocrit 52.2 H Mean Corpuscular Volume 90.8 Mean Corpuscular Hemoglobin 27.1 L Mean Corpuscular Hemoglobin Concent 29.9 L Red Cell Distribution Width 20.1 H Platelet Count 147 Mean Platelet Volume 10.5 H Neutrophils % 82.9 H Lymphocytes % 7.7 L Monocytes % 6.8 Eosinophils % 1.9 Basophils % 0.2 Nucleated Red Blood Cells % 0.0 Neutrophils # 9.2 H Lymphocytes # 0.9 Monocytes # 0.8 Eosinophils # 0.2 Basophils # 0.0 Nucleated Red Blood Cells # 0.0 Sodium Level 139 Potassium Level 3.8 Chloride Level 105 Carbon Dioxide Level 28 Anion Gap 10 Blood Urea Nitrogen 10 Creatinine 0.83 Glucose Level 101 Calcium Level 8.0 L Total Bilirubin 0.5 Direct Bilirubin 0.00 Indirect Bilirubin 0.5 Aspartate Amino Transf (AST/SGOT) 51 H Alanine Aminotransferase (ALT/SGPT) 40 Alkaline Phosphatase 37 L Total Protein 5.8 L Albumin 2.8 L Globulin 3.00 Albumin/Globulin Ratio 0.93 Vancomycin Level Trough 7.2 L HIV (1&2) Antibody NEGATIVE Test 08/29/17 08:53 08/29/17 13:22 08/29/17 17:15 Bedside Glucose 82 85 99 Medications Medications Current Medications Flumazenil (Romazicon) 0.2 mg Q1M PRN IV BENZODIAZEPINE OVERDOSE; Start at 07:30 Naloxone HCl (Narcan) 0.4 mg Q3M PRN IV DECREASED REPIRATORY RATE; Start at 07:30 Ondansetron HCl (Zofran Inj) 4 mg Q6H PRN IV NAUSEA AND/OR VOMITING; Start 08/24/17 at 07:30 Nitroglycerin (Nitroglycerin (Sl Tab) 0.4 Mg) 1 tab Q5M PRN SL CHEST PAIN; Start 08/24/17 at 07:30 Acetaminophen (Tylenol Liquid) 650 mg Q6H PRN PO PAIN LEVEL 1-3 OR FEVER; Start 08/24/17 at 07:30 Acetaminophen (Tylenol Tab) 650 mg Q6H PRN PO PAIN LEVEL 1-3 OR FEVER Last administered on 08/29/17t 14:02; Admin Dose 650 MG; Start 08/24/17 at 07:30 Acetaminophen (Tylenol Supp) 650 mg Q4H PRN AR PAIN LEVEL 1-3 OR TEMP > 37C; Start 08/24/17 at 07:30 Ibuprofen (Motrin) 600 mg Q6H PRN PO PAIN LEVEL 1-3 OR FEVER; Start 08/24/17 at 07:30 Acetaminophen/ Hydrocodone Bitart ([place] (5/325)) 1 tab Q6H PRN PO PAIN LEVEL 4 -6; Start 08/24/17 at 07:30 Morphine Sulfate (morphine) 2 mg Q4H PRN IV PAIN LEVEL 7-10 Last administered on 08/27/17 03:38; Admin Dose 2 MG; Start 08/24/17 at 07:30 Lorazepam (Ativan) 1 mg Q2H PRN IV ANXIETY Last administered on 08/27/17 04:00 ; Admin Dose 1 MG; Start 08/24/17 at 07:30 Docusate Sodium (Colace) 100 mg Q12H PRN PO CONSTIPATION; Start 08/24/17 at 07: 30 Magnesium Hydroxide (Milk Of Mag) 30 ml DAILY PRN PO CONSTIPATION; Start at 07:30 Bisacodyl (Dulcolax) 5 mg DAILY PRN PO CONSTIPATION; Start 08/24/17 at 07:30 Bisacodyl (Dulcolax Supp) 10 mg DAILY PRN AR CONSTIPATION; Start 08/24/17 at 07 :30 Sodium Biphosphate/ Sodium Phosphate (Fleet Enema) 133 ml DAILY PRN AR CONSTIPATION; Start 08/24/17 at 07:30 Eye Lubricant (Artificial Tears Oph) 1 drop TID BOTH EYES Last administered on 08/29/17 13:11; Admin Dose 1 DROP; Start 08/24/17 at 09:00 Enoxaparin Sodium (Lovenox) 40 mg DAILY SC Last administered on 08/29/17 08:55 ; Admin Dose 40 MG; Start 08/24/17 at 09:00 Pantoprazole (Protonix Tab) 40 mg DAILY@06 PO Last administered on 08/29/17 05 :50; Admin Dose 40 MG; Start 08/25/17 at 06:00 Hydralazine HCl (Apresoline) 10 mg Q6H PRN IV ELEVATED BLOOD PRESSURE Last administered on 08/29/17 14:35; Admin Dose 10 MG; Start 08/24/17 at 15:30 Levothyroxine Sodium (Synthroid) 25 mcg DAILY@06 NGT Last administered on 09:07; Admin Dose 25 MCG; Start 08/25/17 at 06:00 Meperidine HCl (Demerol) 12.5 mg Q4H PRN IV POST OPERATIVE SHIVERING; Start at 18:30 Meperidine HCl (Demerol) 25 mg Q4H PRN IV POST OPERATIVE SHIVERING; Start 08/24 at 18:30 Eye Lubricant (Akwa Oint) 1 applic Q6 BOTH EYES Last administered on 08/29/17 17:16; Admin Dose 1 APPLIC; Start 08/24/17 at 18:30 Eye Lubricant 2 drop 2 drop Q6 BOTH EYES Last administered on 08/29/17 17:16; Admin Dose 2 DROP; Start 08/24/17 at 18:30 Propofol 100 ml @ 3.75 mls/hr Q12H IV Last administered on 08/29/17 13:10; Admin Dose 37.5 MLS/HR; Start 08/24/17 at 19:30 Vecuronium [place] 100 mg/ Dextrose 100 ml @ 6.25 mls/hr TITRATE IV Last administered on 08/25/17 10:44; Admin Dose 2.5 MLS/HR; Start 08/25/17 at 10:00 Levetiracetam 100 ml @ 400 mls/hr Q12 IVPB Last administered on 08/29/17 09: 05; Admin Dose 400 MLS/HR; Start 08/25/17 at 10:00 Norepinephrine 16 mg/Dextrose 500 ml @ 1.87 mls/hr TITRATE IV Last administered on 08/26/17 14:32; Admin Dose 22.5 MLS/HR; Start 08/26/17 at 13:30 Fentanyl 100 ml @ 2.5 mls/hr TITRATE IV Last administered on 08/29/17 15:39; Admin Dose 1 MLS/HR; Start 08/27/17 at 09:30 Dextrose/Sodium Chloride (D5-1/2ns) 1,000 ml @ 40 mls/hr Q24H IV Last administered on 08/29/17 05:38; Admin Dose 70 MLS/HR; Start 08/27/17 at 11:00 Aspirin (Aspirin) 81 mg DAILY PO Last administered on 08/29/17 08:55; Admin Dose 81 MG; Start 08/28/17 at 09:00 Insulin Glargine (Lantus) 15 unit DAILY@08 SC Last administered on 08/29/17 08 :54; Admin Dose 15 UNIT; Start 08/27/17 at 13:00 Diagnostic Test (Pha) (Accu-Chek) 1 ea 02 XX ; Start 08/29/17 at 02:00 Insulin Aspart (Novolog Insulin Pen) NOVOLOG *MILD* ALGORI... Q6 SC ; Start 08/28/17 at 12:00 Miscellaneous Information 1 ea NOTE XX ; Start 08/28/17 at 11:30 Glucose (Glutose) 15 gm Q15M PRN PO DECREASED GLUCOSE; Start 08/28/17 at 11:30 Glucose (Glutose) 22.5 gm Q15M PRN PO DECREASED GLUCOSE; Start 08/28/17 at 11: 30 Dextrose (D50w Syringe) 25 ml Q15M PRN IV DECREASED GLUCOSE; Start 08/28/17 at 11:30 Dextrose (D50w Syringe) 50 ml Q15M PRN IV DECREASED GLUCOSE; Start 08/28/17 at 11:30 Glucagon (Glucagen) 1 mg Q15M PRN IM DECREASED GLUCOSE; Start 08/28/17 at 11:30 Glucose (Glutose) 15 gm Q15M PRN BUCCAL DECREASED GLUCOSE; Start 08/28/17 at 11 :30 IV Flush (NS 10 ml) 10 ml PRN PRN IV IV PROTOCOL; Start 08/28/17 at 14:00 Miscellaneous Information This patient almanza... PRN PRN XX WOUND CARE; Start 08/28 at 23:00 Vancomycin HCl/ Sodium Chloride (Vancocin/NS) 250 ml @ 83.333 mls/ hr Q8H IVPB Last administered on 08/29/17t 14:30; Admin Dose 83.333 MLS/HR; Start at 14:00 Miscellaneous Information (*Rx Drug Level Order Reminder*) VANCOMYCIN TROUGH AT 0500 ONCE ONCE XX ; Start 08/30/17 at 05:00; Stop 08/30/17 at 05:01 Methylprednisolone Sodium Succinate (Solu-Medrol) 60 mg Q6 IV Last administered on 08/29/17t 17:16; Admin Dose 60 MG; Start 08/29/17 at 12:00 Furosemide (Lasix) 40 mg DAILY IV ; Start 08/30/17 at 09:00 Metoprolol Tartrate 25 mg 25 mg BID PO ; Start 08/29/17 at 21:00 Levofloxacin/ Dextrose 100 ml @ 100 mls/hr Q24H IVPB Last administered on 08/29 13:18; Admin Dose 100 MLS/HR; Start 08/29/17 at 13:00 Meropenem/Sodium Chloride 50 ml @ 200 mls/hr Q8 IVPB Last administered on 08/29 14:29; Admin Dose 200 MLS/HR; Start 08/29/17 at 14:00 Midazolam HCl (Versed) 50 ml @ 1 mls/hr TITRATE IV Last administered on 17:21; Admin Dose 5 MLS/HR; Start 08/29/17 at 16:00 MIKE LUONG MD Aug 29, 2017 18:54
[2017-08-29] MEDS: METOPROLOL 25 MG TAB PO SCH (21:00)
[2017-08-30] VITALS (37 sets, daily range): BP systolic 110–151; BP diastolic 60–109; PULSE 79–104; RESP 26–29
[2017-08-30] MEDS: IPRATROPIUM (HFA) 12.9 GM INHALER INH SCH ×6 (01:13→22:26)
[2017-08-30] MEDS: ALBUTEROL HFA 8 GM INHALER INH SCH ×6 (01:13→22:26)
[2017-08-30] MEDS: ACCU-CHEK XX SCH (01:39)
[2017-08-30] MEDS: MIDAZOLAM (DRIP) 50 mg/50 mL 50 ML IV SCH ×3 (02:10→23:20)
[2017-08-30 05:07] LABS: ABNORMAL IP MESSAGE 1; BASOPHILS % 0.1 % (0.0-2.0); HEMATOCRIT 53.9 % (42.0-52.0); LYMPHOCYTES # 0.3 10^3/ul (0.8-2.9); LYMPHOCYTES % 4.5 % (15.0-51.0); MEAN CORPUSCULAR HEMOGLOBIN 27.1 pg (29.0-33.0); MEAN CORPUSCULAR HGB CONC 29.7 g/dl (32.0-37.0); MEAN CORPUSCULAR VOLUME 91.2 fl (82.0-101.0); MEAN PLATELET VOLUME 9.9 fl (7.4-10.4); MONOCYTE # 0.2 10^3/ul (0.3-0.9); MONOCYTES % 3.4 % (0.0-11.0); NEUTROPHIL # 6.5 10^3/ul (1.6-7.5); NEUTROPHILS % 91.4 % (39.0-77.0); PLATELET COUNT 182 10^3/UL (140-415); POSITIVE DIFF @See below; RED BLOOD COUNT 5.91 10^6/ul (4.70-6.10); RED CELL DISTRIBUTION WIDTH 19.7 % (11.5-14.5); WHITE BLOOD COUNT 7.1 10^3/ul (4.8-10.8)
[2017-08-30 05:34] LABS: CALCIUM 8.6 mg/dl (8.4-10.2); CREATININE 0.72 mg/dl (0.61-1.24); MAGNESIUM 1.9 mg/dl (1.7-2.5); PHOSPHORUS 3.7 mg/dl (2.5-4.9); POTASSIUM 4.8 mmol/L (3.5-5.1)
[2017-08-30] MEDS: MEROPENEM 500MG/50 ML (PMX) 50 ML IVPB SCH ×2 (05:36→15:41)
[2017-08-30] MEDS: ARTIFICIAL TEARS 15 ML OPH BOTH EYES SCH ×5 (05:59→17:43)
[2017-08-30] MEDS: OCULAR LUBRICANT 3.5 GM OPH OINT BOTH EYES SCH ×3 (05:59→17:44)
[2017-08-30] MEDS: DEXTROSE 5%-0.45% NACL 1,000 ML IV SCH (05:59)
[2017-08-30] MEDS: METHYLPREDNISOLONE 125 MG INJ IV SCH ×3 (05:59→17:44)
[2017-08-30] MEDS ORDERED: PANTOPRAZOLE 40 MG INJ IV SCH (06:00)
[2017-08-30] MEDS: LEVOTHYROXINE 25 MCG TAB NGT SCH (06:00)
[2017-08-30] MEDS: INSULIN ASPART [NOVOLOG] 3 ML PEN SC SCH ×3 (06:00→17:47)
[2017-08-30] MEDS: VANCOMYCIN 1.25 GM in SOD CHLORIDE 0.9% 250 ML IVPB SCH (06:11)
--- NOTE | 2017-08-30 07:33 | RADRPT ---
PROCEDURE: XR Chest. CLINICAL INDICATION: Cardiac arrest. TECHNIQUE: Single portable view of the chest was obtained COMPARISON: 08/28/2017. FINDINGS: Stable location of an endotracheal tube, nasogastric tube, and left upper extremity PICC line. There is stable cardiomegaly. Interval slight decreased pulmonary edema is present. Persistent dense left base opacification secondary to atelectasis or consolidation with pleural effusion. No evidenc e of a pneumothorax. IMPRESSION: 1. Interval slight decreased pulmonary edema. 2. Persistent dense opacification of the left base secondary to the combination of pleural effusion with atelectasis and/or consolidation. 3. Stable cardiomegaly. 4. Satisfactory position of support lines and tubes. RPTAT: H[facility] Physician Ezra Date Time Electronically viewed and signed by Physician Ezra on 08/30/2017 07:33 RR/
[2017-08-30 08:04] LABS: AADO2 Arterial 595.1 mmHg (7.0-24.0); Allen Test ACCEPTAB; Arterial Base Excess 0.3 mmol/L (-3.0-3); Arterial COHb 0.5 % (0.0-3.0); Arterial Fraction of Oxyhgb 90.5 % (93.0-99.0); Arterial HCO3 27.3 mmol/L (22.0-26.0); Arterial MetHb 0.3 % (0.0-1.5); MODE VENT - AC
[2017-08-30] MEDS: INSULIN GLARGINE [LANtus] 3 ML PEN SC SCH (08:28)
[2017-08-30] MEDS: ASPIRIN 81 MG TAB PO SCH (09:00)
[2017-08-30] MEDS: METOPROLOL 25 MG TAB PO SCH ×2 (09:00→20:46)
[2017-08-30] MEDS ORDERED: TPN 1,000 ML IV SCH (09:00)
[2017-08-30] MEDS: LEVETIRACETAM 500 MG (PMX) 100 ML IVPB SCH ×2 (09:23→20:47)
[2017-08-30] MEDS: FUROSEMIDE 40 MG INJ IV SCH (09:25)
[2017-08-30] MEDS: ENOXAPARIN 40 MG/0.4 ML SYG SC SCH (09:28)
[2017-08-30] MEDS: FENTAnyl (DRIP) 1000 mcg/100mL 100 ML IV SCH ×2 (09:58→20:10)
--- NOTE | 2017-08-30 10:25 | CONS ---
Date/Time of Note Date/Time of Note DATE: 08/30/17 TIME: 10:24 Consult Date/Type/Reason Admit Date/Time Aug 24, 2017 at 07:05 Initial Consult Date 08/27/17 Type of Consultation: Pulmonary Ordering Provider: MIKE LUONG MD Subjective Patient remains comfortable this morning. No significant changes there was significant encephalopathy. Desaturations overnight continues 100% FiO2. Objective Vital Signs Date Time Temp Pulse Resp B/P Pulse Ox O2 Delivery O2 Flow Rate FiO2 08/30/17 09:23 85 26 99 100 08/30/17 06:00 122/73 Mechanical Ventilator 08/30/17 04:00 99.5 Intake and Output 08/29/17 08/29/17 08/30/17 15:00 23:00 07:00 Intake Total 1259.833 ml 820.166 ml 580.000 ml Output Total 460 ml 900 ml 950 ml Balance 799.833 ml -79.834 ml -370.000 ml Exam PHYSICAL EXAMINATION: GENERAL: Well-nourished well-developed gentleman comfortable at rest on mechanical ventilation. VITAL SIGNS: NECK: Supple, no JVD or lymphadenopathy. CARDIAC: S1, S2, no added sounds or murmurs. CHEST: Diminished air entry bilaterally. ABDOMEN: Soft, nontender. No guarding or rebound. EXTREMITIES: No cyanosis, clubbing, 1+ edema. NEUROLOGIC: Generalized weakness. Results/Medications Result Diagram: 08/30/17 0447 08/30/17 0440 Results 24 hrs Laboratory Tests Test 08/29/17 13:22 08/29/17 17:15 08/29/17 23:28 08/30/17 04:40 Bedside Glucose 85 99 127 Sodium Level 140 Potassium Level 4.8 Chloride Level 105 Carbon Dioxide Level 30 Anion Gap 10 Blood Urea Nitrogen 17 Creatinine 0.72 Glucose Level 150 Calcium Level 8.6 Phosphorus Level 3.7 Magnesium Level 1.9 Vancomycin Level Trough 10.9 Test 08/30/17 04:47 08/30/17 06:01 08/30/17 07:00 White Blood Count 7.1 # Red Blood Count 5.91 Hemoglobin 16.0 Hematocrit 53.9 H Mean Corpuscular Volume 91.2 Mean Corpuscular Hemoglobin 27.1 L Mean Corpuscular Hemoglobin Concent 29.7 L Red Cell Distribution Width 19.7 H Platelet Count 182 # Mean Platelet Volume 9.9 Neutrophils % 91.4 H Lymphocytes % 4.5 L Monocytes % 3.4 Eosinophils % 0.0 Basophils % 0.1 Nucleated Red Blood Cells % 0.0 Neutrophils # 6.5 Lymphocytes # 0.3 L Monocytes # 0.2 L Eosinophils # 0.0 Basophils # 0.0 Nucleated Red Blood Cells # 0.0 Bedside Glucose 132 Blood Gas Specimen Source Blood arterial Arterial Blood Date Drawn 08/30/2017 7:30:15 AM Arterial Blood pH (Temp corrected) 7.336 L Arterial Blood pCO2 (Temp correct) 52.2 H Arterial Blood pO2 (Temp corrected) 65.7 L Arterial Blood HCO3 27.3 H Arterial Blood Base Excess 0.3 Arterial Blood Oxygen Saturation 91.2 L Kar Test ACCEPTAB Arterial Blood Gas Puncture Site Right Radial Arterial Blood Carboxyhemoglobin 0.5 Arterial Blood Methemoglobin 0.3 Blood Gas A-a O2 Differential 595.1 H Oxyhemoglobin Percent 90.5 L Total Hemoglobin 17.0 Blood Gas Temperature 37.0 Blood Gas Respiration Rate 26.0 Blood Gas Actual Respiration Rate 26 Blood Gas Modality VENT - AC FiO2 100.0 Blood Gas Tidal Volume 450.0 Blood Gas Low PEEP Setting 16.0 Blood Gas Notified Whom JLD Blood Gas Notified Time 08/30/2017 8:03:56 AM Medications Current Medications Flumazenil (Romazicon) 0.2 mg Q1M PRN IV BENZODIAZEPINE OVERDOSE; Start at 07:30 Naloxone HCl (Narcan) 0.4 mg Q3M PRN IV DECREASED REPIRATORY RATE; Start at 07:30 Ondansetron HCl (Zofran Inj) 4 mg Q6H PRN IV NAUSEA AND/OR VOMITING; Start 08/24/17 at 07:30 Nitroglycerin (Nitroglycerin (Sl Tab) 0.4 Mg) 1 tab Q5M PRN SL CHEST PAIN; Start 08/24/17 at 07:30 Acetaminophen (Tylenol Liquid) 650 mg Q6H PRN PO PAIN LEVEL 1-3 OR FEVER; Start 08/24/17 at 07:30 Acetaminophen (Tylenol Tab) 650 mg Q6H PRN PO PAIN LEVEL 1-3 OR FEVER Last administered on 08/29/17t 14:02; Admin Dose 650 MG; Start 08/24/17 at 07:30 Acetaminophen (Tylenol Supp) 650 mg Q4H PRN ME PAIN LEVEL 1-3 OR TEMP > 37C Last administered on 08/29/17 20:57; Admin Dose 650 MG; Start 08/24/17 at 07:30 Ibuprofen (Motrin) 600 mg Q6H PRN PO PAIN LEVEL 1-3 OR FEVER; Start 08/24/17 at 07:30 Acetaminophen/ Hydrocodone Bitart ([place] (5/325)) 1 tab Q6H PRN PO PAIN LEVEL 4 -6; Start 08/24/17 at 07:30 Morphine Sulfate (morphine) 2 mg Q4H PRN IV PAIN LEVEL 7-10 Last administered on 08/27/17 03:38; Admin Dose 2 MG; Start 08/24/17 at 07:30 Lorazepam (Ativan) 1 mg Q2H PRN IV ANXIETY Last administered on 08/27/17 04:00 ; Admin Dose 1 MG; Start 08/24/17 at 07:30 Docusate Sodium (Colace) 100 mg Q12H PRN PO CONSTIPATION; Start 08/24/17 at 07: 30 Magnesium Hydroxide (Milk Of Mag) 30 ml DAILY PRN PO CONSTIPATION; Start at 07:30 Bisacodyl (Dulcolax) 5 mg DAILY PRN PO CONSTIPATION; Start 08/24/17 at 07:30 Bisacodyl (Dulcolax Supp) 10 mg DAILY PRN ME CONSTIPATION; Start 08/24/17 at 07 :30 Sodium Biphosphate/ Sodium Phosphate (Fleet Enema) 133 ml DAILY PRN ME CONSTIPATION; Start 08/24/17 at 07:30 Eye Lubricant (Artificial Tears Oph) 1 drop TID BOTH EYES Last administered on 08/30/17 09:24; Admin Dose 1 DROP; Start 08/24/17 at 09:00 Enoxaparin Sodium (Lovenox) 40 mg DAILY SC Last administered on 08/30/17 09:28 ; Admin Dose 40 MG; Start 08/24/17 at 09:00 Hydralazine HCl (Apresoline) 10 mg Q6H PRN IV ELEVATED BLOOD PRESSURE Last administered on 08/29/17 14:35; Admin Dose 10 MG; Start 08/24/17 at 15:30 Levothyroxine Sodium (Synthroid) 25 mcg DAILY@06 NGT Last administered on 09:07; Admin Dose 25 MCG; Start 08/25/17 at 06:00 Meperidine HCl (Demerol) 12.5 mg Q4H PRN IV POST OPERATIVE SHIVERING; Start at 18:30 Meperidine HCl (Demerol) 25 mg Q4H PRN IV POST OPERATIVE SHIVERING; Start 08/24 at 18:30 Eye Lubricant (Akwa Oint) 1 applic Q6 BOTH EYES Last administered on 08/30/17 05:59; Admin Dose 1 APPLIC; Start 08/24/17 at 18:30 Eye Lubricant 2 drop 2 drop Q6 BOTH EYES Last administered on 08/30/17 05:59; Admin Dose 2 DROP; Start 08/24/17 at 18:30 Propofol 100 ml @ 3.75 mls/hr Q12H IV Last administered on 08/29/17 13:10; Admin Dose 37.5 MLS/HR; Start 08/24/17 at 19:30 Vecuronium [place] 100 mg/ Dextrose 100 ml @ 6.25 mls/hr TITRATE IV Last administered on 08/25/17 10:44; Admin Dose 2.5 MLS/HR; Start 08/25/17 at 10:00 Levetiracetam 100 ml @ 400 mls/hr Q12 IVPB Last administered on 08/30/17 09: 23; Admin Dose 400 MLS/HR; Start 08/25/17 at 10:00 Norepinephrine 16 mg/Dextrose 500 ml @ 1.87 mls/hr TITRATE IV Last administered on 08/26/17 14:32; Admin Dose 22.5 MLS/HR; Start 08/26/17 at 13:30 Fentanyl 100 ml @ 2.5 mls/hr TITRATE IV Last administered on 08/30/17 09:58; Admin Dose 10 MLS/HR; Start 08/27/17 at 09:30 Dextrose/Sodium Chloride (D5-1/2ns) 1,000 ml @ 40 mls/hr Q24H IV Last administered on 08/30/17 05:59; Admin Dose 40 MLS/HR; Start 08/27/17 at 11:00 Aspirin (Aspirin) 81 mg DAILY PO Last administered on 08/29/17 08:55; Admin Dose 81 MG; Start 08/28/17 at 09:00 Insulin Glargine (Lantus) 15 unit DAILY@08 SC Last administered on 08/30/17 08 :28; Admin Dose 15 UNIT; Start 08/27/17 at 13:00 Diagnostic Test (Pha) (Accu-Chek) 1 ea 02 XX ; Start 08/29/17 at 02:00 Insulin Aspart (Novolog Insulin Pen) NOVOLOG *MILD* ALGORI... Q6 SC ; Start 08/28/17 at 12:00 Miscellaneous Information 1 ea NOTE XX ; Start 08/28/17 at 11:30 Glucose (Glutose) 15 gm Q15M PRN PO DECREASED GLUCOSE; Start 08/28/17 at 11:30 Glucose (Glutose) 22.5 gm Q15M PRN PO DECREASED GLUCOSE; Start 08/28/17 at 11: 30 Dextrose (D50w Syringe) 25 ml Q15M PRN IV DECREASED GLUCOSE; Start 08/28/17 at 11:30 Dextrose (D50w Syringe) 50 ml Q15M PRN IV DECREASED GLUCOSE; Start 08/28/17 at 11:30 Glucagon (Glucagen) 1 mg Q15M PRN IM DECREASED GLUCOSE; Start 08/28/17 at 11:30 Glucose (Glutose) 15 gm Q15M PRN BUCCAL DECREASED GLUCOSE; Start 08/28/17 at 11 :30 IV Flush (NS 10 ml) 10 ml PRN PRN IV IV PROTOCOL; Start 08/28/17 at 14:00 Miscellaneous Information This patient almanza... PRN PRN XX WOUND CARE; Start 08/28 at 23:00 Vancomycin HCl/ Sodium Chloride (Vancocin/NS) 250 ml @ 83.333 mls/ hr Q8H IVPB Last administered on 08/30/17 06:11; Admin Dose 83.333 MLS/HR; Start at 14:00 Methylprednisolone Sodium Succinate (Solu-Medrol) 60 mg Q6 IV Last administered on 08/30/17 05:59; Admin Dose 60 MG; Start 08/29/17 at 12:00 Furosemide (Lasix) 40 mg DAILY IV Last administered on 08/30/17 09:25; Admin Dose 40 MG; Start 08/30/17 at 09:00 Metoprolol Tartrate 25 mg 25 mg BID PO ; Start 08/29/17 at 21:00 Levofloxacin/ Dextrose 100 ml @ 100 mls/hr Q24H IVPB Last administered on 08/29 13:18; Admin Dose 100 MLS/HR; Start 08/29/17 at 13:00 Meropenem/Sodium Chloride 50 ml @ 100 mls/hr Q8 IVPB Last administered on 08/30 05:36; Admin Dose 100 MLS/HR; Start 08/29/17 at 14:00 Midazolam HCl (Versed) 50 ml @ 1 mls/hr TITRATE IV Last administered on 02:10; Admin Dose 5 MLS/HR; Start 08/29/17 at 16:00 Pantoprazole 40 mg 40 mg DAILY@06 IV Last administered on 08/30/17 05:59; Admin Dose 40 MG; Start 08/30/17 at 06:00 Total Parenteral Nutrition (Tpn) 1,000 ml @ 50 mls/hr Q20H IV ; Start 08/30/17 at 09:00; Stop 09/06/17 at 08:00 Assessment/Plan Chief Complaint/Hosp Course IMP: 1. s/p Cardiopulmonary arrest--likely due to aspiration and central airway obstruction 2. Seizure Disorder 3. Gram + bacteremia--likely contaminant 4. Possible anoxic brain injury 5. CAP vs. aspiration, no evidence of pulmonary embolism on CT angiogram 6. Morbid obesity 7. DM RECS: 1. Continue mechanical ventilation for weaning, decrease FiO2 and PEEP as tolerated. Currently on volume control ventilation. 2. Anti-epileptic Rx and propofol gtt 3. Nasogastric tube feeding as tolerated 4. Abx 5. F/U Cx's 6. DVT and GI prophylaxis 7. EEG and neuro evaluation. 8. Empiric steroid trial. 35 min cc time Overall prognosis extremely poor. Consider palliative care consult and comfort measures. Problems: JULIANA WASHINGTON MD, [facility] Aug 30, 2017 10:25
[2017-08-30] MEDS: LEVOFLOXACIN 500MG/D5W (PMX) 100 ML IVPB SCH (12:26)
--- NOTE | 2017-08-30 13:34 | CONS ---
Date/Time of Note Date/Time of Note DATE: 08/30/17 TIME: 13:30 Assessment/Plan Assessment/Plan Chief Complaint/Hosp Course IMPRESSION: 1. Pulseless electrical activity cardiac arrest.-on levophed still. EF 50% by echo this admit 2. Abnormal electrocardiogram with diffuse ST depressions but in the setting of cardiac arrest. 3. Hypotension-on levophed 4. Tachycardia consistent with sinus tachycardia. 5. Encephalopathy. 6. History of flu-like illness. 7. Hypothyroidism. 8. Hematuria. 9. 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 Lactic acidosis. 11. Leukocytosis. 12. Positive troponin-minimal in setting of cardiac arrest and now trended negative 14. bacteremia 15. Fevers Recc: -Tele in ICU -continue abx's and f/u cx data -Follow MS closely -Continue asa -Continue low dose BB as tolerated -treat fevers -Continue lasix diuresis daily Problems: Consultation Date/Type/Reason Admit Date/Time Aug 24, 2017 at 07:05 Initial Consult Date 08/27/17 Type of Consultation: cardiology Reason for Consultation cardiac arrest Referring Provider: MIKE LUONG MD Exam/Review of Systems Vital Signs Vitals Vital Signs Date Time Temp Pulse Resp B/P Pulse Ox O2 Delivery O2 Flow Rate FiO2 08/30/17 12:00 81 08/30/17 11:00 26 119/78 98 Mechanical Ventilator 08/30/17 09:23 100 08/30/17 08:00 99.3 Intake and Output 08/29/17 08/29/17 08/30/17 15:00 23:00 07:00 Intake Total 1259.833 ml 820.166 ml 580.000 ml Output Total 460 ml 900 ml 976 ml Balance 799.833 ml -79.834 ml -396.000 ml Exam Review of Systems: CONSTITUTIONAL: No fevers, chills. PULMONARY: No sob CARDIOVASCULAR: No chest pain/palpitations GASTROINTESTINAL: No nausea/vomiting. GENITOURINARY: No hematuria/dysuria. MUSCULOSKELETAL: No myagias/arthalgias. PSYCHIATRIC: The patient denies depression. NEUROLOGIC: No weakness Constitutional: alert Psych: no complaints Head: normocephalic ENMT: mucosa pink and moist Neck: supple Respiratory: diminished breath sounds Cardiovascular: regular rate and rhythm Gastrointestinal: non-tender, soft Musculoskeletal: muscle tone Extremities: edema Neurological: other (No focal deficits) Results Result Diagram: 08/30/17 0447 08/30/17 0440 Results 24 hrs Laboratory Tests Test 08/29/17 17:15 08/29/17 23:28 08/30/17 04:40 08/30/17 04:47 Bedside Glucose 99 127 Sodium Level 140 Potassium Level 4.8 Chloride Level 105 Carbon Dioxide Level 30 Anion Gap 10 Blood Urea Nitrogen 17 Creatinine 0.72 Glucose Level 150 Calcium Level 8.6 Phosphorus Level 3.7 Magnesium Level 1.9 Vancomycin Level Trough 10.9 White Blood Count 7.1 # Red Blood Count 5.91 Hemoglobin 16.0 Hematocrit 53.9 H Mean Corpuscular Volume 91.2 Mean Corpuscular Hemoglobin 27.1 L Mean Corpuscular Hemoglobin Concent 29.7 L Red Cell Distribution Width 19.7 H Platelet Count 182 # Mean Platelet Volume 9.9 Neutrophils % 91.4 H Lymphocytes % 4.5 L Monocytes % 3.4 Eosinophils % 0.0 Basophils % 0.1 Nucleated Red Blood Cells % 0.0 Neutrophils # 6.5 Lymphocytes # 0.3 L Monocytes # 0.2 L Eosinophils # 0.0 Basophils # 0.0 Nucleated Red Blood Cells # 0.0 Test 08/30/17 06:01 08/30/17 07:00 08/30/17 12:20 Bedside Glucose 132 164 Blood Gas Specimen Source Blood arterial Arterial Blood Date Drawn 08/30/2017 7:30:15 AM Arterial Blood pH (Temp corrected) 7.336 L Arterial Blood pCO2 (Temp correct) 52.2 H Arterial Blood pO2 (Temp corrected) 65.7 L Arterial Blood HCO3 27.3 H Arterial Blood Base Excess 0.3 Arterial Blood Oxygen Saturation 91.2 L Kar Test ACCEPTAB Arterial Blood Gas Puncture Site Right Radial Arterial Blood Carboxyhemoglobin 0.5 Arterial Blood Methemoglobin 0.3 Blood Gas A-a O2 Differential 595.1 H Oxyhemoglobin Percent 90.5 L Total Hemoglobin 17.0 Blood Gas Temperature 37.0 Blood Gas Respiration Rate 26.0 Blood Gas Actual Respiration Rate 26 Blood Gas Modality VENT - AC FiO2 100.0 Blood Gas Tidal Volume 450.0 Blood Gas Low PEEP Setting 16.0 Blood Gas Notified Whom JLD Blood Gas Notified Time 08/30/2017 8:03:56 AM Medications Medications Current Medications Flumazenil (Romazicon) 0.2 mg Q1M PRN IV BENZODIAZEPINE OVERDOSE; Start at 07:30 Naloxone HCl (Narcan) 0.4 mg Q3M PRN IV DECREASED REPIRATORY RATE; Start at 07:30 Ondansetron HCl (Zofran Inj) 4 mg Q6H PRN IV NAUSEA AND/OR VOMITING; Start 08/24/17 at 07:30 Nitroglycerin (Nitroglycerin (Sl Tab) 0.4 Mg) 1 tab Q5M PRN SL CHEST PAIN; Start 08/24/17 at 07:30 Acetaminophen (Tylenol Liquid) 650 mg Q6H PRN PO PAIN LEVEL 1-3 OR FEVER; Start 08/24/17 at 07:30 Acetaminophen (Tylenol Tab) 650 mg Q6H PRN PO PAIN LEVEL 1-3 OR FEVER Last administered on 08/29/17 14:02; Admin Dose 650 MG; Start 08/24/17 at 07:30 Acetaminophen (Tylenol Supp) 650 mg Q4H PRN IN PAIN LEVEL 1-3 OR TEMP > 37C Last administered on 08/29/17 20:57; Admin Dose 650 MG; Start 08/24/17 at 07:30 Ibuprofen (Motrin) 600 mg Q6H PRN PO PAIN LEVEL 1-3 OR FEVER; Start 08/24/17 at 07:30 Acetaminophen/ Hydrocodone Bitart ([place] (5/325)) 1 tab Q6H PRN PO PAIN LEVEL 4 -6; Start 08/24/17 at 07:30 Morphine Sulfate (morphine) 2 mg Q4H PRN IV PAIN LEVEL 7-10 Last administered on 08/27/17 03:38; Admin Dose 2 MG; Start 08/24/17 at 07:30 Lorazepam (Ativan) 1 mg Q2H PRN IV ANXIETY Last administered on 08/27/17 04:00 ; Admin Dose 1 MG; Start 08/24/17 at 07:30 Docusate Sodium (Colace) 100 mg Q12H PRN PO CONSTIPATION; Start 08/24/17 at 07: 30 Magnesium Hydroxide (Milk Of Mag) 30 ml DAILY PRN PO CONSTIPATION; Start at 07:30 Bisacodyl (Dulcolax) 5 mg DAILY PRN PO CONSTIPATION; Start 08/24/17 at 07:30 Bisacodyl (Dulcolax Supp) 10 mg DAILY PRN IN CONSTIPATION; Start 08/24/17 at 07 :30 Sodium Biphosphate/ Sodium Phosphate (Fleet Enema) 133 ml DAILY PRN IN CONSTIPATION; Start 08/24/17 at 07:30 Enoxaparin Sodium (Lovenox) 40 mg DAILY SC Last administered on 08/30/17 09:28 ; Admin Dose 40 MG; Start 08/24/17 at 09:00 Hydralazine HCl (Apresoline) 10 mg Q6H PRN IV ELEVATED BLOOD PRESSURE Last administered on 08/29/17 14:35; Admin Dose 10 MG; Start 08/24/17 at 15:30 Levothyroxine Sodium (Synthroid) 25 mcg DAILY@06 NGT Last administered on 09:07; Admin Dose 25 MCG; Start 08/25/17 at 06:00 Meperidine HCl (Demerol) 12.5 mg Q4H PRN IV POST OPERATIVE SHIVERING; Start at 18:30 Meperidine HCl (Demerol) 25 mg Q4H PRN IV POST OPERATIVE SHIVERING; Start 08/24 at 18:30 Eye Lubricant (Akwa Oint) 1 applic Q6 BOTH EYES Last administered on 08/30/17 12:26; Admin Dose 1 APPLIC; Start 08/24/17 at 18:30 Eye Lubricant 2 drop 2 drop Q6 BOTH EYES Last administered on 08/30/17 12:25; Admin Dose 2 DROP; Start 08/24/17 at 18:30 Propofol 100 ml @ 3.75 mls/hr Q12H IV Last administered on 08/29/17 13:10; Admin Dose 37.5 MLS/HR; Start 08/24/17 at 19:30 Levetiracetam 100 ml @ 400 mls/hr Q12 IVPB Last administered on 08/30/17 09: 23; Admin Dose 400 MLS/HR; Start 08/25/17 at 10:00 Norepinephrine 16 mg/Dextrose 500 ml @ 1.87 mls/hr TITRATE IV Last administered on 08/26/17 14:32; Admin Dose 22.5 MLS/HR; Start 08/26/17 at 13:30 Fentanyl (Sublimaze) 100 ml @ 2.5 mls/hr TITRATE IV Last administered on 09:58; Admin Dose 10 MLS/HR; Start 08/27/17 at 09:30 Aspirin (Aspirin) 81 mg DAILY PO Last administered on 08/29/17 08:55; Admin Dose 81 MG; Start 08/28/17 at 09:00 Insulin Glargine (Lantus) 15 unit DAILY@08 SC Last administered on 08/30/17 08 :28; Admin Dose 15 UNIT; Start 08/27/17 at 13:00 Diagnostic Test (Pha) (Accu-Chek) 1 ea 02 XX ; Start 08/29/17 at 02:00 Insulin Aspart (Novolog Insulin Pen) NOVOLOG *MILD* ALGORI... Q6 SC Last administered on 08/30/17 12:43; Admin Dose 1 UNIT; Start 08/28/17 at 12:00 Miscellaneous Information 1 ea NOTE XX ; Start 08/28/17 at 11:30 Glucose (Glutose) 15 gm Q15M PRN PO DECREASED GLUCOSE; Start 08/28/17 at 11:30 Glucose (Glutose) 22.5 gm Q15M PRN PO DECREASED GLUCOSE; Start 08/28/17 at 11: 30 Dextrose (D50w Syringe) 25 ml Q15M PRN IV DECREASED GLUCOSE; Start 08/28/17 at 11:30 Dextrose (D50w Syringe) 50 ml Q15M PRN IV DECREASED GLUCOSE; Start 08/28/17 at 11:30 Glucagon (Glucagen) 1 mg Q15M PRN IM DECREASED GLUCOSE; Start 08/28/17 at 11:30 Glucose (Glutose) 15 gm Q15M PRN BUCCAL DECREASED GLUCOSE; Start 08/28/17 at 11 :30 IV Flush (NS 10 ml) 10 ml PRN PRN IV IV PROTOCOL; Start 08/28/17 at 14:00 Miscellaneous Information (Pending [facility] Order For Wound Care) This patient almanza... PRN PRN XX WOUND CARE; Start 08/28/17 at 23:00 Methylprednisolone Sodium Succinate (Solu-Medrol) 60 mg Q6 IV Last administered on 08/30/17 12:26; Admin Dose 60 MG; Start 08/29/17 at 12:00 Furosemide (Lasix) 40 mg DAILY IV Last administered on 08/30/17 09:25; Admin Dose 40 MG; Start 08/30/17 at 09:00 Metoprolol Tartrate 25 mg 25 mg BID PO ; Start 08/29/17 at 21:00 Levofloxacin/ Dextrose 100 ml @ 100 mls/hr Q24H IVPB Last administered on 08/30 12:26; Admin Dose 100 MLS/HR; Start 08/29/17 at 13:00 Meropenem/Sodium Chloride 50 ml @ 100 mls/hr Q8 IVPB Last administered on 08/30 05:36; Admin Dose 100 MLS/HR; Start 08/29/17 at 14:00 Midazolam HCl (Versed) 50 ml @ 1 mls/hr TITRATE IV Last administered on 13:05; Admin Dose 5 MLS/HR; Start 08/29/17 at 16:00 Pantoprazole 40 mg 40 mg DAILY@06 IV Last administered on 08/30/17 05:59; Admin Dose 40 MG; Start 08/30/17 at 06:00 Total Parenteral Nutrition 1,000 ml @ 50 mls/hr Q20H IV ; Start 08/30/17 at 09: 00; Stop 09/06/17 at 08:00 Vancomycin HCl/ Sodium Chloride (Vancocin/NS) 250 ml @ 83.333 mls/ hr Q8 IVPB ; Start 08/30/17 at 14:00 Miscellaneous Information (*Rx Drug Level Order Reminder*) VANCO TROUGH @ 1, 300 ON ... ONCE ONCE XX ; Start 08/31/17 at 13:00; Stop 08/31/17 at 13:01 SKYLAR ABDALLA Aug 30, 2017 13:34
--- NOTE | 2017-08-30 13:52 | PN ---
DATE: 08/30/2017 SUBJECTIVE: Patient remains unchanged, continuously spiking fevers with a T-max yesterday of 101.1, T-current 99.3, pulse 85, respirations 27, blood pressure 124/89, saturation 100% on vent. LABORATORIES: WBC 7.1, hemoglobin and hematocrit 16 and 53.9, platelets 182, neutrophils 91.4, BUN 17, creatinine 0.72. MICROBIOLOGY: All cultures have been negative. INDWELLINGS: Endotracheal tube, NG tube, PICC line, [place] catheter. ANTIMICROBIALS: 1. Vancomycin. 2. Meropenem. 3. Levaquin. The patient is also on steroids. PHYSICAL EXAMINATION: GENERAL: This is a morbidly obese, middle-aged man who is intubated and sedated, in no dis tress. HEENT: Head atraumatic, normocephalic. Sclerae anicteric. Buccal mucosa dry. NECK: Supple. CHEST: Rise symmetrical. Breath sounds diminished to bases. HEART: S1, S2. ABDOMEN: Soft. Bowel tones hypoactive. EXTREMITIES: Bilateral edema. ASSESSMENT: 1. Sepsis with ongoing fevers. 2. Pneumonia, possibly aspiration event. 3. Acute encephalopathy status post cardiopulmonary arrest. 4. Coagulase-negative staph bacteremia on admission consistent with contaminant. 5. Diabetes. 6. Morbid obesity. 7. Polycythemia, hematology on case. PLAN: The patient remains hemodynamically stable, still on high PEEP and FIO2 of 100. Still contin ues with spiking fevers, although white blood cell count tracing down. Cultures have been negative. She is on appropriate coverage with broad spectrum antibiotics. He is also getting Solu-Medrol. Continue present care. Dictated By: BEKA WATKINS CUBE MACHINE TENDER for JORDAN FORRESTER/YESI Conf#: [id number] DID#: [id number]
[2017-08-30] MEDS: VANCOMYCIN 1.5 GM in SOD CHLORIDE 0.9% 250 ML IVPB SCH ×2 (14:28→22:28)
[2017-08-30] MEDS: TPN 1,000 ML IV SCH (16:46)
--- NOTE | 2017-08-30 18:59 | PN ---
Date/Time of Note Date/Time of Note DATE: 08/30/17 TIME: 18:58 Assessment/Plan VTE Prophylaxis VTE Prophylaxis Intervention: other Lines/Catheters IV Catheter Type (from Nrs): PICC Line Central line still needed: Yes Urinary Cath still in place: Yes Reason Cath still needed: other (indicate) Assessment/Plan Chief Complaint/Hosp Course 1. s/p cardiac arrest 2. Sepsis with Gram + bacteremia 3. Morbid obesity 4. Hypertension hx 5. history of flu like sickness before admission 6. Anemia 7. Seizure Disorder 8. Possible anoxic brain injury. 7. Underlying diabetes mellitus. 8 obesity 9 polycythemi plan antibiotic per pull and cardio and neuro and dr keene per id lasix per [facility] Problems: Subjective 24 Hr Interval Summary Subjective hx not possible: other (D/W FAMILY ABOUT PROGNOSIS) Exam/Review of Systems Vital Signs Vitals Vital Signs Date Time Temp Pulse Resp B/P Pulse Ox O2 Delivery O2 Flow Rate FiO2 08/30/17 18:00 104 26 151/109 90 Mechanical Ventilator 08/30/17 17:22 100 08/30/17 16:00 99.1 Intake and Output 08/29/17 08/29/17 08/30/17 14:59 22:59 06:59 Intake Total 1273.166 ml 942.666 ml 635.000 ml Output Total 430 ml 880 ml 1070 ml Balance 843.166 ml 62.666 ml -435.000 ml Exam Respiratory: clear to auscultation Cardiovascular: regular rate and rhythm Gastrointestinal: bowel sounds, soft Extremities: edema (++) Results Result Diagram: 08/30/17 0447 08/30/170 Results 24 hrs Laboratory Tests Test 08/29/17 23:28 08/30/17 04:40 08/30/17 04:47 08/30/17 06:01 Bedside Glucose 127 132 Sodium Level 140 Potassium Level 4.8 Chloride Level 105 Carbon Dioxide Level 30 Anion Gap 10 Blood Urea Nitrogen 17 Creatinine 0.72 Glucose Level 150 Calcium Level 8.6 Phosphorus Level 3.7 Magnesium Level 1.9 Vancomycin Level Trough 10.9 White Blood Count 7.1 # Red Blood Count 5.91 Hemoglobin 16.0 Hematocrit 53.9 H Mean Corpuscular Volume 91.2 Mean Corpuscular Hemoglobin 27.1 L Mean Corpuscular Hemoglobin Concent 29.7 L Red Cell Distribution Width 19.7 H Platelet Count 182 # Mean Platelet Volume 9.9 Neutrophils % 91.4 H Lymphocytes % 4.5 L Monocytes % 3.4 Eosinophils % 0.0 Basophils % 0.1 Nucleated Red Blood Cells % 0.0 Neutrophils # 6.5 Lymphocytes # 0.3 L Monocytes # 0.2 L Eosinophils # 0.0 Basophils # 0.0 Nucleated Red Blood Cells # 0.0 Test 08/30/17 07:00 08/30/17 12:20 08/30/17 17:45 Blood Gas Specimen Source Blood arterial Arterial Blood Date Drawn 08/30/2017 7:30:15 AM Arterial Blood pH (Temp corrected) 7.336 L Arterial Blood pCO2 (Temp correct) 52.2 H Arterial Blood pO2 (Temp corrected) 65.7 L Arterial Blood HCO3 27.3 H Arterial Blood Base Excess 0.3 Arterial Blood Oxygen Saturation 91.2 L Kar Test ACCEPTAB Arterial Blood Gas Puncture Site Right Radial Arterial Blood Carboxyhemoglobin 0.5 Arterial Blood Methemoglobin 0.3 Blood Gas A-a O2 Differential 595.1 H Oxyhemoglobin Percent 90.5 L Total Hemoglobin 17.0 Blood Gas Temperature 37.0 Blood Gas Respiration Rate 26.0 Blood Gas Actual Respiration Rate 26 Blood Gas Modality VENT - AC FiO2 100.0 Blood Gas Tidal Volume 450.0 Blood Gas Low PEEP Setting 16.0 Blood Gas Notified Whom JLD Blood Gas Notified Time 08/30/2017 8:03:56 AM Bedside Glucose 164 154 Medications Medications Current Medications Flumazenil (Romazicon) 0.2 mg Q1M PRN IV BENZODIAZEPINE OVERDOSE; Start at 07:30 Naloxone HCl (Narcan) 0.4 mg Q3M PRN IV DECREASED REPIRATORY RATE; Start at 07:30 Ondansetron HCl (Zofran Inj) 4 mg Q6H PRN IV NAUSEA AND/OR VOMITING; Start 08/24/17 at 07:30 Nitroglycerin (Nitroglycerin (Sl Tab) 0.4 Mg) 1 tab Q5M PRN SL CHEST PAIN; Start 08/24/17 at 07:30 Acetaminophen (Tylenol Liquid) 650 mg Q6H PRN PO PAIN LEVEL 1-3 OR FEVER; Start 08/24/17 at 07:30 Acetaminophen (Tylenol Tab) 650 mg Q6H PRN PO PAIN LEVEL 1-3 OR FEVER Last administered on 08/29/17 14:02; Admin Dose 650 MG; Start 08/24/17 at 07:30 Acetaminophen (Tylenol Supp) 650 mg Q4H PRN [place] PAIN LEVEL 1-3 OR TEMP > 37C Last administered on 08/29/17 20:57; Admin Dose 650 MG; Start 08/24/17 at 07:30 Ibuprofen (Motrin) 600 mg Q6H PRN PO PAIN LEVEL 1-3 OR FEVER; Start 08/24/17 at 07:30 Acetaminophen/ Hydrocodone Bitart ([place] (5/325)) 1 tab Q6H PRN PO PAIN LEVEL 4 -6; Start 08/24/17 at 07:30 Morphine Sulfate (morphine) 2 mg Q4H PRN IV PAIN LEVEL 7-10 Last administered on 08/27/17 03:38; Admin Dose 2 MG; Start 08/24/17 at 07:30 Lorazepam (Ativan) 1 mg Q2H PRN IV ANXIETY Last administered on 08/27/17 04:00 ; Admin Dose 1 MG; Start 08/24/17 at 07:30 Docusate Sodium (Colace) 100 mg Q12H PRN PO CONSTIPATION; Start 08/24/17 at 07: 30 Magnesium Hydroxide (Milk Of Mag) 30 ml DAILY PRN PO CONSTIPATION; Start at 07:30 Bisacodyl (Dulcolax) 5 mg DAILY PRN PO CONSTIPATION; Start 08/24/17 at 07:30 Bisacodyl (Dulcolax Supp) 10 mg DAILY PRN [place] CONSTIPATION; Start 08/24/17 at 07 :30 Sodium Biphosphate/ Sodium Phosphate (Fleet Enema) 133 ml DAILY PRN [place] CONSTIPATION; Start 08/24/17 at 07:30 Enoxaparin Sodium (Lovenox) 40 mg DAILY SC Last administered on 08/30/17 09:28 ; Admin Dose 40 MG; Start 08/24/17 at 09:00 Hydralazine HCl (Apresoline) 10 mg Q6H PRN IV ELEVATED BLOOD PRESSURE Last administered on 08/29/17 14:35; Admin Dose 10 MG; Start 08/24/17 at 15:30 Meperidine HCl (Demerol) 12.5 mg Q4H PRN IV POST OPERATIVE SHIVERING; Start at 18:30 Meperidine HCl (Demerol) 25 mg Q4H PRN IV POST OPERATIVE SHIVERING; Start 08/24 at 18:30 Eye Lubricant (Akwa Oint) 1 applic Q6 BOTH EYES Last administered on 08/30/17 17:44; Admin Dose 1 APPLIC; Start 08/24/17 at 18:30 Eye Lubricant 2 drop 2 drop Q6 BOTH EYES Last administered on 08/30/17 17:43; Admin Dose 2 DROP; Start 08/24/17 at 18:30 Propofol 100 ml @ 3.75 mls/hr Q12H IV Last administered on 08/29/17 13:10; Admin Dose 37.5 MLS/HR; Start 08/24/17 at 19:30 Levetiracetam 100 ml @ 400 mls/hr Q12 IVPB Last administered on 08/30/17 09: 23; Admin Dose 400 MLS/HR; Start 08/25/17 at 10:00 Norepinephrine 16 mg/Dextrose 500 ml @ 1.87 mls/hr TITRATE IV Last administered on 08/26/17 14:32; Admin Dose 22.5 MLS/HR; Start 08/26/17 at 13:30 Fentanyl (Sublimaze) 100 ml @ 2.5 mls/hr TITRATE IV Last administered on 09:58; Admin Dose 10 MLS/HR; Start 08/27/17 at 09:30 Insulin Glargine (Lantus) 15 unit DAILY@08 SC Last administered on 08/30/17 08 :28; Admin Dose 15 UNIT; Start 08/27/17 at 13:00 Diagnostic Test (Pha) (Accu-Chek) 1 ea 02 XX ; Start 08/29/17 at 02:00 Insulin Aspart (Novolog Insulin Pen) NOVOLOG *MILD* [place]I... Q6 SC Last administered on 08/30/17 17:47; Admin Dose 1 UNIT; Start 08/28/17 at 12:00 Miscellaneous Information 1 ea NOTE XX ; Start 08/28/17 at 11:30 Glucose (Glutose) 15 gm Q15M PRN PO DECREASED GLUCOSE; Start 08/28/17 at 11:30 Glucose (Glutose) 22.5 gm Q15M PRN PO DECREASED GLUCOSE; Start 08/28/17 at 11: 30 Dextrose (D50w Syringe) 25 ml Q15M PRN IV DECREASED GLUCOSE; Start 08/28/17 at 11:30 Dextrose (D50w Syringe) 50 ml Q15M PRN IV DECREASED GLUCOSE; Start 08/28/17 at 11:30 Glucagon (Glucagen) 1 mg Q15M PRN IM DECREASED GLUCOSE; Start 08/28/17 at 11:30 Glucose (Glutose) 15 gm Q15M PRN BUCCAL DECREASED GLUCOSE; Start 08/28/17 at 11 :30 IV Flush (NS 10 ml) 10 ml PRN PRN IV IV PROTOCOL; Start 08/28/17 at 14:00 Miscellaneous Information (Pending [facility] Order For Wound Care) This patient almanza... PRN PRN XX WOUND CARE; Start 08/28/17 at 23:00 Methylprednisolone Sodium Succinate (Solu-Medrol) 60 mg Q6 IV Last administered on 08/30/17 17:44; Admin Dose 60 MG; Start 08/29/17 at 12:00 Furosemide (Lasix) 40 mg DAILY IV Last administered on 08/30/17 09:25; Admin Dose 40 MG; Start 08/30/17 at 09:00 Metoprolol Tartrate 25 mg 25 mg BID PO ; Start 08/29/17 at 21:00 Levofloxacin/ Dextrose 100 ml @ 100 mls/hr Q24H IVPB Last administered on 08/30 12:26; Admin Dose 100 MLS/HR; Start 08/29/17 at 13:00 Midazolam HCl 50 ml @ 1 mls/hr TITRATE IV Last administered on 08/30/17 13:05 ; Admin Dose 5 MLS/HR; Start 08/29/17 at 16:00 Vancomycin HCl/ Sodium Chloride (Vancocin/NS) 250 ml @ 83.333 mls/ hr Q8 IVPB Last administered on 08/30/17 14:28; Admin Dose 83.333 MLS/HR; Start 08/30/17 at 14:00 Miscellaneous Information VANCO TROUGH @ 1,300 ON ... ONCE ONCE XX ; Start at 13:00; Stop 08/31/17 at 13:01 Meropenem/Sodium Chloride 50 ml @ 100 mls/hr Q8 IVPB ; Start 08/30/17 at 22:00 Total Parenteral Nutrition (Tpn) 1,000 ml @ 50 mls/hr Q20H IV Last administered on 08/30/17t 16:46; Admin Dose 50 MLS/HR; Start 08/30/17 at 16:00 Famotidine (Pepcid Iv) 20 mg BID IV ; Start 08/31/17 at 09:00 Levothyroxine Sodium (Synthroid Iv) 25 mcg DAILY@06 IV ; Start 08/31/17 at 06: 00 Aspirin (Aspirin) 81 mg DAILY [place] ; Start 08/31/17 at 09:00; Status Future Hold MIKE LUONG MD Aug 30, 2017 18:59
[2017-08-30] MEDS: PROPOFOL 100 ML IV SCH (19:30)
[2017-08-30] MEDS: MEROPENEM 1 GM/50ML(PMX) 50 ML IVPB SCH (21:30)
[2017-08-31] VITALS (36 sets, daily range): BP systolic 107–158; BP diastolic 67–101; PULSE 68–108; RESP 26–41
[2017-08-31] MEDS: ARTIFICIAL TEARS 15 ML OPH BOTH EYES SCH ×4 (00:11→17:09)
[2017-08-31] MEDS: METHYLPREDNISOLONE 125 MG INJ IV SCH ×4 (00:11→17:09)
[2017-08-31] MEDS: OCULAR LUBRICANT 3.5 GM OPH OINT BOTH EYES SCH ×4 (00:11→17:08)
[2017-08-31] MEDS: INSULIN ASPART [NOVOLOG] 3 ML PEN SC SCH ×6 (00:12→21:14)
[2017-08-31] MEDS: ACCU-CHEK XX SCH (00:20)
[2017-08-31] MEDS: ALBUTEROL HFA 8 GM INHALER INH SCH ×6 (01:12→22:37)
[2017-08-31] MEDS: IPRATROPIUM (HFA) 12.9 GM INHALER INH SCH ×6 (01:13→22:36)
[2017-08-31] MEDS: ACETAMINOPHEN 650 MG SUPP PR PRN (02:49)
[2017-08-31] MEDS: FENTAnyl (DRIP) 1000 mcg/100mL 100 ML IV SCH ×2 (05:24→16:44)
[2017-08-31] MEDS: LEVOTHYROXINE 100 MCG VIAL IV SCH (05:39)
[2017-08-31] MEDS: MEROPENEM 1 GM/50ML(PMX) 50 ML IVPB SCH ×3 (05:41→23:33)
[2017-08-31 06:16] LABS: ABNORMAL IP MESSAGE 1; BASOPHILS % 0.2 % (0.0-2.0); HEMATOCRIT 54.6 % (42.0-52.0); HEMOGLOBIN 15.9 g/dl (14.0-18.0); LYMPHOCYTES # 0.5 10^3/ul (0.8-2.9); LYMPHOCYTES % 4.2 % (15.0-51.0); MEAN CORPUSCULAR HEMOGLOBIN 26.5 pg (29.0-33.0); MEAN CORPUSCULAR HGB CONC 29.1 g/dl (32.0-37.0); MEAN CORPUSCULAR VOLUME 91.2 fl (82.0-101.0); MEAN PLATELET VOLUME 10.3 fl (7.4-10.4); MONOCYTE # 0.4 10^3/ul (0.3-0.9); MONOCYTES % 3.8 % (0.0-11.0); NEUTROPHIL # 10.3 10^3/ul (1.6-7.5); NEUTROPHILS % 91.2 % (39.0-77.0); PLATELET COUNT 239 10^3/UL (140-415); POSITIVE DIFF @See below; RED BLOOD COUNT 5.99 10^6/ul (4.70-6.10); RED CELL DISTRIBUTION WIDTH 19.3 % (11.5-14.5); WHITE BLOOD COUNT 11.3 10^3/ul (4.8-10.8)
[2017-08-31] MEDS: VANCOMYCIN 1.5 GM in SOD CHLORIDE 0.9% 250 ML IVPB SCH ×3 (06:26→21:58)
[2017-08-31 06:58] LABS: ALBUMIN 2.8 g/dl (3.3-4.9); ALBUMIN/GLOBULIN RATIO 1.03; BILIRUBIN,INDIRECT 0.5 mg/dl (0-1.1); BILIRUBIN,TOTAL 0.5 mg/dl (0.2-1.3); CALCIUM 8.8 mg/dl (8.4-10.2); CREATININE 0.72 mg/dl (0.61-1.24); POTASSIUM 4.9 mmol/L (3.5-5.1); TOTAL PROTEIN 5.5 g/dl (6.1-8.1)
[2017-08-31 07:00] LABS: PHOSPHORUS 3.3 mg/dl (2.5-4.9)
[2017-08-31] MEDS: INSULIN GLARGINE [LANtus] 3 ML PEN SC SCH (08:39)
[2017-08-31] MEDS: LEVETIRACETAM 500 MG (PMX) 100 ML IVPB SCH ×2 (08:40→21:10)
[2017-08-31] MEDS: FUROSEMIDE 40 MG INJ IV SCH (08:40)
[2017-08-31] MEDS: FAMOTIDINE 20 MG INJ IV SCH ×2 (08:59→22:04)
[2017-08-31] MEDS: MIDAZOLAM (DRIP) 50 mg/50 mL 50 ML IV SCH ×2 (09:00→22:04)
[2017-08-31] MEDS ORDERED: ASPIRIN 300 MG SUPP PR SCH (09:00)
[2017-08-31] MEDS: METOPROLOL 25 MG TAB PO SCH (09:00)
[2017-08-31] MEDS: ENOXAPARIN 40 MG/0.4 ML SYG SC SCH (09:02)
[2017-08-31 09:44] LABS: AADO2 Arterial 586.4 mmHg (7.0-24.0); Allen Test ACCEPTAB; Arterial COHb 0.2 % (0.0-3.0); Arterial Fraction of Oxyhgb 94.7 % (93.0-99.0); Arterial HCO3 30.6 mmol/L (22.0-26.0); Arterial MetHb 0.3 % (0.0-1.5); Arterial Total Hemglobin 17.6 g/dl (12.0-18.0); MODE VENT - AC
--- NOTE | 2017-08-31 09:52 | RADRPT ---
PROCEDURE: XR Chest. CLINICAL INDICATION: Septic shock TECHNIQUE: An AP view of the chest was obtained. COMPARISON: Chest x-ray dated 08/30/2017 FINDINGS: The endotracheal tube tip is approximately 4.1 cm above the [place]. The tip of the enteric tube ex tends below the left diaphragm. There is a left upper extremity PICC line with tip near the cavoatri al junction. There is prominence of the central pulmonary vascular markings with obscuration of the left diaphrag m. No pneumothorax is seen. The cardiomediastinal silhouette is mildly enlarged . The osseous structures are unremarkable. IMPRESSION: 1. Findings suggestive of pulmonary vascular congestion, mildly improved when compared to the prio r examination. 2. Obscuration of the left diaphragm may reflect a combination of left pleural fluid, atelectasis, and / or pneumonia. No significant interval change. 3. Mild cardiomegaly and aortic atherosclerosis. 4. Tubes and lines, as described above. RPTAT: .Ani Thurston MD, MD Date Time Electronically viewed and signed by .Ani Thurston MD, on 08/31/2017 09:51 .G/
--- NOTE | 2017-08-31 10:14 | CONS ---
Date/Time of Note Date/Time of Note DATE: 08/31/17 TIME: 10:13 Consult Date/Type/Reason Admit Date/Time Aug 24, 2017 at 07:05 Initial Consult Date 08/27/17 Type of Consultation: Pulmonary Ordering Provider: MIKE LUONG MD Subjective Patient comfortable no new events. Remains unresponsive. Objective Vital Signs Date Time Temp Pulse Resp B/P Pulse Ox O2 Delivery O2 Flow Rate FiO2 08/31/17 09:52 74 26 99 100 08/31/17 09:00 119/71 Mechanical Ventilator 08/31/17 07:00 99.9 Intake and Output 08/30/17 08/30/17 08/31/17 15:00 23:00 07:00 Intake Total 560 ml 920 ml 765.000 ml Output Total 2414 ml 427 ml 677 ml Balance -1854 ml 493 ml 88.000 ml Exam PHYSICAL EXAMINATION: GENERAL: Well-nourished well-developed gentleman comfortable at rest on mechanical ventilation. VITAL SIGNS: NECK: Supple, no JVD or lymphadenopathy. CARDIAC: S1, S2, no added sounds or murmurs. CHEST: Diminished air entry bilaterally. ABDOMEN: Soft, nontender. No guarding or rebound. EXTREMITIES: No cyanosis, clubbing, 1+ edema. NEUROLOGIC: Generalized weakness. Results/Medications Result Diagram: 08/31/1715 08/31/1715 Results 24 hrs Laboratory Tests Test 08/30/17 12:20 08/30/17 17:45 08/31/17 00:10 08/31/17 05:15 Bedside Glucose 164 154 204 White Blood Count 11.3 #H Red Blood Count 5.99 Hemoglobin 15.9 Hematocrit 54.6 H Mean Corpuscular Volume 91.2 Mean Corpuscular Hemoglobin 26.5 L Mean Corpuscular Hemoglobin Concent 29.1 L Red Cell Distribution Width 19.3 H Platelet Count 239 # Mean Platelet Volume 10.3 Neutrophils % 91.2 H Lymphocytes % 4.2 L Monocytes % 3.8 Eosinophils % 0.0 Basophils % 0.2 Nucleated Red Blood Cells % 0.0 Neutrophils # 10.3 H Lymphocytes # 0.5 L Monocytes # 0.4 Eosinophils # 0.0 Basophils # 0.0 Nucleated Red Blood Cells # 0.0 Sodium Level 140 Potassium Level 4.9 Chloride Level 101 Carbon Dioxide Level 32 H Anion Gap 12 Blood Urea Nitrogen 27 H Creatinine 0.72 Glucose Level 230 H Calcium Level 8.8 Phosphorus Level 3.3 Magnesium Level 2.0 Total Bilirubin 0.5 Direct Bilirubin 0.00 Indirect Bilirubin 0.5 Aspartate Amino Transf (AST/SGOT) 42 Alanine Aminotransferase (ALT/SGPT) 41 Alkaline Phosphatase 41 L Total Protein 5.5 L Albumin 2.8 L Globulin 2.70 Albumin/Globulin Ratio 1.03 Prealbumin 20.0 Triglycerides Level 198 H Test 08/31/17 05:35 08/31/17 08:41 08/31/17 08:50 Bedside Glucose 206 249 H Blood Gas Specimen Source Blood arterial Arterial Blood Date Drawn 08/31/2017 9:20:13 AM Arterial Blood pH (Temp corrected) 7.425 Arterial Blood pCO2 (Temp correct) 47.7 H Arterial Blood pO2 (Temp corrected) 78.9 L Arterial Blood HCO3 30.6 H Arterial Blood Base Excess 5.0 H Arterial Blood Oxygen Saturation 95.2 Kar Test ACCEPTAB Arterial Blood Gas Puncture Site Right Radial Arterial Blood Carboxyhemoglobin 0.2 Arterial Blood Methemoglobin 0.3 Blood Gas A-a O2 Differential 586.4 H Oxyhemoglobin Percent 94.7 Total Hemoglobin 17.6 Blood Gas Temperature 37.0 Blood Gas Respiration Rate 26.0 Blood Gas Actual Respiration Rate 26 Blood Gas Modality VENT - AC FiO2 100.0 Blood Gas Tidal Volume 450.0 Blood Gas Low PEEP Setting 16.0 Blood Gas Notified Whom JLD Blood Gas Notified Time 08/31/2017 9:43:52 AM Medications Current Medications Flumazenil (Romazicon) 0.2 mg Q1M PRN IV BENZODIAZEPINE OVERDOSE; Start at 07:30 Naloxone HCl (Narcan) 0.4 mg Q3M PRN IV DECREASED REPIRATORY RATE; Start at 07:30 Ondansetron HCl (Zofran Inj) 4 mg Q6H PRN IV NAUSEA AND/OR VOMITING; Start 08/24/17 at 07:30 Nitroglycerin (Nitroglycerin (Sl Tab) 0.4 Mg) 1 tab Q5M PRN SL CHEST PAIN; Start 08/24/17 at 07:30 Acetaminophen (Tylenol Liquid) 650 mg Q6H PRN PO PAIN LEVEL 1-3 OR FEVER; Start 08/24/17 at 07:30 Acetaminophen (Tylenol Tab) 650 mg Q6H PRN PO PAIN LEVEL 1-3 OR FEVER Last administered on 08/29/17 14:02; Admin Dose 650 MG; Start 08/24/17 at 07:30 Acetaminophen (Tylenol Supp) 650 mg Q4H PRN [place] PAIN LEVEL 1-3 OR TEMP > 37C Last administered on 08/31/17 02:49; Admin Dose 650 MG; Start 08/24/17 at 07: 30 Ibuprofen (Motrin) 600 mg Q6H PRN PO PAIN LEVEL 1-3 OR FEVER; Start 08/24/17 at 07:30 Acetaminophen/ Hydrocodone Bitart ([place] (5/325)) 1 tab Q6H PRN PO PAIN LEVEL 4 -6; Start 08/24/17 at 07:30 Morphine Sulfate (morphine) 2 mg Q4H PRN IV PAIN LEVEL 7-10 Last administered on 08/27/17 03:38; Admin Dose 2 MG; Start 08/24/17 at 07:30 Lorazepam (Ativan) 1 mg Q2H PRN IV ANXIETY Last administered on 08/27/17 04:00 ; Admin Dose 1 MG; Start 08/24/17 at 07:30 Docusate Sodium (Colace) 100 mg Q12H PRN PO CONSTIPATION; Start 08/24/17 at 07: 30 Magnesium Hydroxide (Milk Of Mag) 30 ml DAILY PRN PO CONSTIPATION; Start at 07:30 Bisacodyl (Dulcolax) 5 mg DAILY PRN PO CONSTIPATION; Start 08/24/17 at 07:30 Bisacodyl (Dulcolax Supp) 10 mg DAILY PRN [place] CONSTIPATION; Start 08/24/17 at 07 :30 Sodium Biphosphate/ Sodium Phosphate (Fleet Enema) 133 ml DAILY PRN [place] CONSTIPATION; Start 08/24/17 at 07:30 Enoxaparin Sodium (Lovenox) 40 mg DAILY SC Last administered on 08/31/17 09: 02; Admin Dose 40 MG; Start 08/24/17 at 09:00 Hydralazine HCl (Apresoline) 10 mg Q6H PRN IV ELEVATED BLOOD PRESSURE Last administered on 08/29/17 14:35; Admin Dose 10 MG; Start 08/24/17 at 15:30 Meperidine HCl (Demerol) 12.5 mg Q4H PRN IV POST OPERATIVE SHIVERING; Start at 18:30 Meperidine HCl (Demerol) 25 mg Q4H PRN IV POST OPERATIVE SHIVERING; Start 08/24 at 18:30 Eye Lubricant (Akwa Oint) 1 applic Q6 BOTH EYES Last administered on 05:39; Admin Dose 1 APPLIC; Start 08/24/17 at 18:30 Eye Lubricant 2 drop 2 drop Q6 BOTH EYES Last administered on 08/31/17 05:39 ; Admin Dose 2 DROP; Start 08/24/17 at 18:30 Propofol 100 ml @ 3.75 mls/hr Q12H IV Last administered on 08/29/17 13:10; Admin Dose 37.5 MLS/HR; Start 08/24/17 at 19:30 Levetiracetam 100 ml @ 400 mls/hr Q12 IVPB Last administered on 08/31/17 08: 40; Admin Dose 400 MLS/HR; Start 08/25/17 at 10:00 Norepinephrine 16 mg/Dextrose 500 ml @ 1.87 mls/hr TITRATE IV Last administered on 08/26/17 14:32; Admin Dose 22.5 MLS/HR; Start 08/26/17 at 13:30 Fentanyl (Sublimaze) 100 ml @ 2.5 mls/hr TITRATE IV Last administered on 08/31 05:24; Admin Dose 10 MLS/HR; Start 08/27/17 at 09:30 Insulin Glargine (Lantus) 15 unit DAILY@08 SC Last administered on 08/31/17 08:39; Admin Dose 15 UNIT; Start 08/27/17 at 13:00 Miscellaneous Information 1 ea NOTE XX ; Start 08/28/17 at 11:30 Glucose (Glutose) 15 gm Q15M PRN PO DECREASED GLUCOSE; Start 08/28/17 at 11:30 Glucose (Glutose) 22.5 gm Q15M PRN PO DECREASED GLUCOSE; Start 08/28/17 at 11: 30 Dextrose (D50w Syringe) 25 ml Q15M PRN IV DECREASED GLUCOSE; Start 08/28/17 at 11:30 Dextrose (D50w Syringe) 50 ml Q15M PRN IV DECREASED GLUCOSE; Start 08/28/17 at 11:30 Glucagon (Glucagen) 1 mg Q15M PRN IM DECREASED GLUCOSE; Start 08/28/17 at 11:30 Glucose (Glutose) 15 gm Q15M PRN BUCCAL DECREASED GLUCOSE; Start 08/28/17 at 11 :30 IV Flush (NS 10 ml) 10 ml PRN PRN IV IV PROTOCOL; Start 08/28/17 at 14:00 Miscellaneous Information (Pending Santyl Order For Wound Care) This patient almanza... PRN PRN XX WOUND CARE; Start 08/28/17 at 23:00 Methylprednisolone Sodium Succinate (Solu-Medrol) 60 mg Q6 IV Last administered on 08/31/17 05:39; Admin Dose 60 MG; Start 08/29/17 at 12:00 Furosemide (Lasix) 40 mg DAILY IV Last administered on 08/31/17 08:40; Admin Dose 40 MG; Start 08/30/17 at 09:00 Metoprolol Tartrate 25 mg 25 mg BID PO ; Start 08/29/17 at 21:00 Levofloxacin/ Dextrose 100 ml @ 100 mls/hr Q24H IVPB Last administered on 08/30 12:26; Admin Dose 100 MLS/HR; Start 08/29/17 at 13:00 Midazolam HCl 50 ml @ 1 mls/hr TITRATE IV Last administered on 08/31/17 09:00 ; Admin Dose 5 MLS/HR; Start 08/29/17 at 16:00 Vancomycin HCl/ Sodium Chloride (Vancocin/NS) 250 ml @ 83.333 mls/ hr Q8 IVPB Last administered on 08/31/17 06:26; Admin Dose 83.333 MLS/HR; Start 08/30/17 at 14:00 Miscellaneous Information VANCO TROUGH @ 1,300 ON ... ONCE ONCE XX ; Start at 13:00; Stop 08/31/17 at 13:01 Meropenem/Sodium Chloride 50 ml @ 100 mls/hr Q8 IVPB Last administered on 05:41; Admin Dose 100 MLS/HR; Start 08/30/17 at 22:00 Total Parenteral Nutrition (Tpn) 1,000 ml @ 50 mls/hr Q20H IV Last administered on 08/30/17 16:46; Admin Dose 50 MLS/HR; Start 08/30/17 at 16:00 Famotidine (Pepcid Iv) 20 mg BID IV Last administered on 08/31/17 08:59; Admin Dose 20 MG; Start 08/31/17 at 09:00 Levothyroxine Sodium (Synthroid Iv) 25 mcg DAILY@06 IV Last administered on 05:39; Admin Dose 25 MCG; Start 08/31/17 at 06:00 Aspirin (Aspirin) 81 mg DAILY [place] ; Start 08/31/17 at 09:00; Status Future Hold Insulin Aspart (Novolog Insulin Pen) NOVOLOG *MILD* ALGORI... Q4 SC Last administered on 08/31/17 08:45; Admin Dose 3 UNIT; Start 08/31/17 at 05:00 Assessment/Plan Chief Complaint/Hosp Course IMP: 1. s/p Cardiopulmonary arrest--likely due to aspiration and central airway obstruction 2. Seizure Disorder 3. Gram + bacteremia--likely contaminant 4. Possible anoxic brain injury 5. CAP vs. aspiration, no evidence of pulmonary embolism on CT angiogram 6. Morbid obesity 7. DM RECS: 1. Continue mechanical ventilation for weaning, decrease FiO2 and PEEP as tolerated. Currently on volume control ventilation. 2. Anti-epileptic Rx and propofol gtt 3. Nasogastric tube feeding as tolerated 4. Abx 5. F/U Cx's 6. DVT and GI prophylaxis 7. EEG and neuro evaluation. 8. Empiric steroid trial. 35 min cc time Palliative care consult. Problems: JULIANA WASHINGTON MD, [facility] Aug 31, 2017 10:14
--- NOTE | 2017-08-31 12:27 | CONS ---
Date/Time of Note Date/Time of Note DATE: 08/31/17 TIME: 12:25 Assessment/Plan Assessment/Plan Additional Assessment/Plan 1. Pulseless electrical activity cardiac arrest.-on levophed still. EF 50% by echo this admit - now is sinus rhythm, sinus tachy - STABLE 2. Abnormal electrocardiogram with diffuse ST depressions but in the setting of cardiac arrest- off levo gtt now 3. Hypotension- off levo gtt - BP stable 4. Tachycardia consistent with sinus tachycardia- difficult to wean 5. Encephalopathy- unchanged 6. History of flu-like illness- on anti-BX 7. Hypothyroidism. 8. Hematuria. 9. 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 Lactic acidosis. 11. Leukocytosis. 12. Positive troponin-minimal in setting of cardiac arrest and now trended negative 14. bactremia Consultation Date/Type/Reason Admit Date/Time Aug 24, 2017 at 07:05 Initial Consult Date 08/27/17 Type of Consultation: Pulmonary Referring Provider: MIKE LUONG MD 24 HR Interval Summary Free Text/Dictation NO acute events - BP stable - con't med rx ROS: No fever, no chills, no nausea, no vomiting, no diarrhea/constipation No recent weight changes No chest pain, no PND, no orthopnea No dizziness, blurred vision No thirst, no heat or cold intolerance (per nurse) Exam/Review of Systems Vital Signs Vitals Vital Signs Date Time Temp Pulse Resp B/P Pulse Ox O2 Delivery O2 Flow Rate FiO2 08/31/17 11:33 71 26 98 100 08/31/17 09:00 119/71 Mechanical Ventilator 08/31/17 07:00 99.9 Intake and Output 08/30/17 08/30/17 08/31/17 15:00 23:00 07:00 Intake Total 560 ml 920 ml 765.000 ml Output Total 2414 ml 427 ml 677 ml Balance -1854 ml 493 ml 88.000 ml Exam General: WN/WD/NAD, AOx 0 HEENT: Unicetric/atraumatic/EOMI (does not follow commands) NECK: JVD elevated, no thyromegaly, intubated Lymph: no lymphadenopathy HEART: regular with no S3, II/ systolic murmur at apex LUNGS: Coarse sounds ABD: soft, NT, ND, +BS : Intact Neuro: non focal SKIN: chronic changes EXT: trace edema Results Result Diagram: 08/31/17 0515 08/31/17 0515 Results 24 hrs Laboratory Tests Test 08/30/17 17:45 08/31/17 00:10 08/31/17 05:15 08/31/17 05:35 Bedside Glucose 154 204 206 White Blood Count 11.3 #H Red Blood Count 5.99 Hemoglobin 15.9 Hematocrit 54.6 H Mean Corpuscular Volume 91.2 Mean Corpuscular Hemoglobin 26.5 L Mean Corpuscular Hemoglobin Concent 29.1 L Red Cell Distribution Width 19.3 H Platelet Count 239 # Mean Platelet Volume 10.3 Neutrophils % 91.2 H Lymphocytes % 4.2 L Monocytes % 3.8 Eosinophils % 0.0 Basophils % 0.2 Nucleated Red Blood Cells % 0.0 Neutrophils # 10.3 H Lymphocytes # 0.5 L Monocytes # 0.4 Eosinophils # 0.0 Basophils # 0.0 Nucleated Red Blood Cells # 0.0 Sodium Level 140 Potassium Level 4.9 Chloride Level 101 Carbon Dioxide Level 32 H Anion Gap 12 Blood Urea Nitrogen 27 H Creatinine 0.72 Glucose Level 230 H Calcium Level 8.8 Phosphorus Level 3.3 Magnesium Level 2.0 Total Bilirubin 0.5 Direct Bilirubin 0.00 Indirect Bilirubin 0.5 Aspartate Amino Transf (AST/SGOT) 42 Alanine Aminotransferase (ALT/SGPT) 41 Alkaline Phosphatase 41 L Total Protein 5.5 L Albumin 2.8 L Globulin 2.70 Albumin/Globulin Ratio 1.03 Prealbumin 20.0 Triglycerides Level 198 H Test 08/31/17 08:41 08/31/17 08:50 Bedside Glucose 249 H Blood Gas Specimen Source Blood arterial Arterial Blood Date Drawn 08/31/2017 9:20:13 AM Arterial Blood pH (Temp corrected) 7.425 Arterial Blood pCO2 (Temp correct) 47.7 H Arterial Blood pO2 (Temp corrected) 78.9 L Arterial Blood HCO3 30.6 H Arterial Blood Base Excess 5.0 H Arterial Blood Oxygen Saturation 95.2 Kar Test ACCEPTAB Arterial Blood Gas Puncture Site Right Radial Arterial Blood Carboxyhemoglobin 0.2 Arterial Blood Methemoglobin 0.3 Blood Gas A-a O2 Differential 586.4 H Oxyhemoglobin Percent 94.7 Total Hemoglobin 17.6 Blood Gas Temperature 37.0 Blood Gas Respiration Rate 26.0 Blood Gas Actual Respiration Rate 26 Blood Gas Modality VENT - AC FiO2 100.0 Blood Gas Tidal Volume 450.0 Blood Gas Low PEEP Setting 16.0 Blood Gas Notified Whom JLD Blood Gas Notified Time 08/31/2017 9:43:52 AM Medications Medications Current Medications Flumazenil (Romazicon) 0.2 mg Q1M PRN IV BENZODIAZEPINE OVERDOSE; Start at 07:30 Naloxone HCl (Narcan) 0.4 mg Q3M PRN IV DECREASED REPIRATORY RATE; Start at 07:30 Ondansetron HCl (Zofran Inj) 4 mg Q6H PRN IV NAUSEA AND/OR VOMITING; Start 08/24/17 at 07:30 Nitroglycerin (Nitroglycerin (Sl Tab) 0.4 Mg) 1 tab Q5M PRN SL CHEST PAIN; Start 08/24/17 at 07:30 Acetaminophen (Tylenol Liquid) 650 mg Q6H PRN PO PAIN LEVEL 1-3 OR FEVER; Start 08/24/17 at 07:30 Acetaminophen (Tylenol Tab) 650 mg Q6H PRN PO PAIN LEVEL 1-3 OR FEVER Last administered on 08/29/17 14:02; Admin Dose 650 MG; Start 08/24/17 at 07:30 Acetaminophen (Tylenol Supp) 650 mg Q4H PRN [place] PAIN LEVEL 1-3 OR TEMP > 37C Last administered on 08/31/17 02:49; Admin Dose 650 MG; Start 08/24/17 at 07: 30 Ibuprofen (Motrin) 600 mg Q6H PRN PO PAIN LEVEL 1-3 OR FEVER; Start 08/24/17 at 07:30 Acetaminophen/ Hydrocodone Bitart ([place] (5/325)) 1 tab Q6H PRN PO PAIN LEVEL 4 -6; Start 08/24/17 at 07:30 Morphine Sulfate (morphine) 2 mg Q4H PRN IV PAIN LEVEL 7-10 Last administered on 08/27/17 03:38; Admin Dose 2 MG; Start 08/24/17 at 07:30 Lorazepam (Ativan) 1 mg Q2H PRN IV ANXIETY Last administered on 08/27/17 04:00 ; Admin Dose 1 MG; Start 08/24/17 at 07:30 Docusate Sodium (Colace) 100 mg Q12H PRN PO CONSTIPATION; Start 08/24/17 at 07: 30 Magnesium Hydroxide (Milk Of Mag) 30 ml DAILY PRN PO CONSTIPATION; Start at 07:30 Bisacodyl (Dulcolax) 5 mg DAILY PRN PO CONSTIPATION; Start 08/24/17 at 07:30 Bisacodyl (Dulcolax Supp) 10 mg DAILY PRN [place] CONSTIPATION; Start 08/24/17 at 07 :30 Sodium Biphosphate/ Sodium Phosphate (Fleet Enema) 133 ml DAILY PRN [place] CONSTIPATION; Start 08/24/17 at 07:30 Enoxaparin Sodium (Lovenox) 40 mg DAILY [place] Last administered on 08/31/17 09: 02; Admin Dose 40 MG; Start 08/24/17 at 09:00 Hydralazine HCl (Apresoline) 10 mg Q6H PRN IV ELEVATED BLOOD PRESSURE Last administered on 08/29/17 14:35; Admin Dose 10 MG; Start 08/24/17 at 15:30 Meperidine HCl (Demerol) 12.5 mg Q4H PRN IV POST OPERATIVE SHIVERING; Start at 18:30 Meperidine HCl (Demerol) 25 mg Q4H PRN IV POST OPERATIVE SHIVERING; Start 08/24 at 18:30 Eye Lubricant (Akwa Oint) 1 applic Q6 BOTH EYES Last administered on 05:39; Admin Dose 1 APPLIC; Start 08/24/17 at 18:30 Eye Lubricant 2 drop 2 drop Q6 BOTH EYES Last administered on 08/31/17 05:39 ; Admin Dose 2 DROP; Start 08/24/17 at 18:30 Propofol 100 ml @ 3.75 mls/hr Q12H IV Last administered on 08/29/17 13:10; Admin Dose 37.5 MLS/HR; Start 08/24/17 at 19:30 Levetiracetam 100 ml @ 400 mls/hr Q12 IVPB Last administered on 08/31/17 08: 40; Admin Dose 400 MLS/HR; Start 08/25/17 at 10:00 Norepinephrine 16 mg/Dextrose 500 ml @ 1.87 mls/hr TITRATE IV Last administered on 08/26/17 14:32; Admin Dose 22.5 MLS/HR; Start 08/26/17 at 13:30 Fentanyl (Sublimaze) 100 ml @ 2.5 mls/hr TITRATE IV Last administered on 08/31 05:24; Admin Dose 10 MLS/HR; Start 08/27/17 at 09:30 Insulin Glargine (Lantus) 15 unit DAILY@08 SC Last administered on 08/31/17 08:39; Admin Dose 15 UNIT; Start 08/27/17 at 13:00 Miscellaneous Information 1 ea NOTE XX ; Start 08/28/17 at 11:30 Glucose (Glutose) 15 gm Q15M PRN PO DECREASED GLUCOSE; Start 08/28/17 at 11:30 Glucose (Glutose) 22.5 gm Q15M PRN PO DECREASED GLUCOSE; Start 08/28/17 at 11: 30 Dextrose (D50w Syringe) 25 ml Q15M PRN IV DECREASED GLUCOSE; Start 08/28/17 at 11:30 Dextrose (D50w Syringe) 50 ml Q15M PRN IV DECREASED GLUCOSE; Start 08/28/17 at 11:30 Glucagon (Glucagen) 1 mg Q15M PRN IM DECREASED GLUCOSE; Start 08/28/17 at 11:30 Glucose (Glutose) 15 gm Q15M PRN BUCCAL DECREASED GLUCOSE; Start 08/28/17 at 11 :30 IV Flush (NS 10 ml) 10 ml PRN PRN IV IV PROTOCOL; Start 08/28/17 at 14:00 Miscellaneous Information (Pending [facility] Order For Wound Care) This patient almanza... PRN PRN XX WOUND CARE; Start 08/28/17 at 23:00 Methylprednisolone Sodium Succinate (Solu-Medrol) 60 mg Q6 IV Last administered on 08/31/17 05:39; Admin Dose 60 MG; Start 08/29/17 at 12:00 Furosemide (Lasix) 40 mg DAILY IV Last administered on 08/31/17 08:40; Admin Dose 40 MG; Start 08/30/17 at 09:00 Metoprolol Tartrate 25 mg 25 mg BID PO ; Start 08/29/17 at 21:00 Levofloxacin/ Dextrose 100 ml @ 100 mls/hr Q24H IVPB Last administered on 08/30 12:26; Admin Dose 100 MLS/HR; Start 08/29/17 at 13:00 Midazolam HCl 50 ml @ 1 mls/hr TITRATE IV Last administered on 08/31/17 09:00 ; Admin Dose 5 MLS/HR; Start 08/29/17 at 16:00 Vancomycin HCl/ Sodium Chloride (Vancocin/NS) 250 ml @ 83.333 mls/ hr Q8 IVPB Last administered on 08/31/17 06:26; Admin Dose 83.333 MLS/HR; Start 08/30/17 at 14:00 Miscellaneous Information VANCO TROUGH @ 1,300 ON ... ONCE ONCE XX ; Start at 13:00; Stop 08/31/17 at 13:01 Meropenem/Sodium Chloride 50 ml @ 100 mls/hr Q8 IVPB Last administered on 05:41; Admin Dose 100 MLS/HR; Start 08/30/17 at 22:00 Total Parenteral Nutrition (Tpn) 1,000 ml @ 50 mls/hr Q20H IV Last administered on 08/30/17 16:46; Admin Dose 50 MLS/HR; Start 08/30/17 at 16:00 Famotidine (Pepcid Iv) 20 mg BID IV Last administered on 08/31/17 08:59; Admin Dose 20 MG; Start 08/31/17 at 09:00 Levothyroxine Sodium (Synthroid Iv) 25 mcg DAILY@06 IV Last administered on 05:39; Admin Dose 25 MCG; Start 08/31/17 at 06:00 Aspirin (Aspirin) 81 mg DAILY [place] ; Start 08/31/17 at 09:00; Status Future Hold Insulin Aspart (Novolog Insulin Pen) NOVOLOG *MILD* ALGORI... Q4 SC Last administered on 08/31/17 08:45; Admin Dose 3 UNIT; Start 08/31/17 at 05:00 TRACY MENDOZA MD Aug 31, 2017 12:27
[2017-08-31] MEDS: TPN 1,000 ML IV SCH (12:37)
[2017-08-31] MEDS: LEVOFLOXACIN 500MG/D5W (PMX) 100 ML IVPB SCH (12:38)
--- NOTE | 2017-08-31 12:47 | PN ---
Date/Time of Note Date/Time of Note DATE: 08/31/17 TIME: 12:43 Assessment/Plan VTE Prophylaxis VTE Prophylaxis Intervention: SCD's Lines/Catheters IV Catheter Type (from [facility]): PICC Line Central line still needed: Yes Urinary Cath still in place: Yes Reason Cath still needed: urinary retention Assessment/Plan Chief Complaint/Hosp Course 1. s/p cardiac arrest 2. Sepsis with Gram + bacteremia 3. Morbid obesity 4. Hypertension 5. history of flu like sickness before admission 6. Anemia 7. Seizure Disorder 8. Possible anoxic brain injury. 7. Underlying diabetes mellitus. 8. Decreased Urinary output Problems: Assessment/Plan 1. Better DM control 2. Continue TPN 3. Family conference Subjective 24 Hr Interval Summary Subjective hx not possible: pt non-verbal, pt critical Exam/Review of Systems Vital Signs Vitals Vital Signs Date Time Temp Pulse Resp B/P Pulse Ox O2 Delivery O2 Flow Rate FiO2 08/31/17 11:33 71 26 98 100 08/31/17 09:00 119/71 Mechanical Ventilator 08/31/17 07:00 99.9 Intake and Output 08/30/17 08/30/17 08/31/17 14:59 22:59 06:59 Intake Total 560 ml 870 ml 830.000 ml Output Total 2189 ml 638 ml 691 ml Balance -1629 ml 232 ml 139.000 ml Exam Constitutional: non-verbal Head: normocephalic Eyes: nl conjunctiva Respiratory: diminished breath sounds Cardiovascular: regular rate and rhythm Gastrointestinal: soft Results Result Diagram: 08/31/17 0515 08/31/17 0515 Results 24 hrs Laboratory Tests Test 08/30/17 17:45 08/31/17 00:10 08/31/17 05:15 08/31/17 05:35 Bedside Glucose 154 204 206 White Blood Count 11.3 #H Red Blood Count 5.99 Hemoglobin 15.9 Hematocrit 54.6 H Mean Corpuscular Volume 91.2 Mean Corpuscular Hemoglobin 26.5 L Mean Corpuscular Hemoglobin Concent 29.1 L Red Cell Distribution Width 19.3 H Platelet Count 239 # Mean Platelet Volume 10.3 Neutrophils % 91.2 H Lymphocytes % 4.2 L Monocytes % 3.8 Eosinophils % 0.0 Basophils % 0.2 Nucleated Red Blood Cells % 0.0 Neutrophils # 10.3 H Lymphocytes # 0.5 L Monocytes # 0.4 Eosinophils # 0.0 Basophils # 0.0 Nucleated Red Blood Cells # 0.0 Sodium Level 140 Potassium Level 4.9 Chloride Level 101 Carbon Dioxide Level 32 H Anion Gap 12 Blood Urea Nitrogen 27 H Creatinine 0.72 Glucose Level 230 H Calcium Level 8.8 Phosphorus Level 3.3 Magnesium Level 2.0 Total Bilirubin 0.5 Direct Bilirubin 0.00 Indirect Bilirubin 0.5 Aspartate Amino Transf (AST/SGOT) 42 Alanine Aminotransferase (ALT/SGPT) 41 Alkaline Phosphatase 41 L Total Protein 5.5 L Albumin 2.8 L Globulin 2.70 Albumin/Globulin Ratio 1.03 Prealbumin 20.0 Triglycerides Level 198 H Test 08/31/17 08:41 08/31/17 08:50 Bedside Glucose 249 H Blood Gas Specimen Source Blood arterial Arterial Blood Date Drawn 08/31/2017 9:20:13 AM Arterial Blood pH (Temp corrected) 7.425 Arterial Blood pCO2 (Temp correct) 47.7 H Arterial Blood pO2 (Temp corrected) 78.9 L Arterial Blood HCO3 30.6 H Arterial Blood Base Excess 5.0 H Arterial Blood Oxygen Saturation 95.2 Kar Test ACCEPTAB Arterial Blood Gas Puncture Site Right Radial Arterial Blood Carboxyhemoglobin 0.2 Arterial Blood Methemoglobin 0.3 Blood Gas A-a O2 Differential 586.4 H Oxyhemoglobin Percent 94.7 Total Hemoglobin 17.6 Blood Gas Temperature 37.0 Blood Gas Respiration Rate 26.0 Blood Gas Actual Respiration Rate 26 Blood Gas Modality VENT - AC FiO2 100.0 Blood Gas Tidal Volume 450.0 Blood Gas Low PEEP Setting 16.0 Blood Gas Notified Whom JLD Blood Gas Notified Time 08/31/2017 9:43:52 AM Medications Medications Current Medications Flumazenil (Romazicon) 0.2 mg Q1M PRN IV BENZODIAZEPINE OVERDOSE; Start at 07:30 Naloxone HCl (Narcan) 0.4 mg Q3M PRN IV DECREASED REPIRATORY RATE; Start at 07:30 Ondansetron HCl (Zofran Inj) 4 mg Q6H PRN IV NAUSEA AND/OR VOMITING; Start 08/24/17 at 07:30 Nitroglycerin (Nitroglycerin (Sl Tab) 0.4 Mg) 1 tab Q5M PRN SL CHEST PAIN; Start 08/24/17 at 07:30 Acetaminophen (Tylenol Liquid) 650 mg Q6H PRN PO PAIN LEVEL 1-3 OR FEVER; Start 08/24/17 at 07:30 Acetaminophen (Tylenol Tab) 650 mg Q6H PRN PO PAIN LEVEL 1-3 OR FEVER Last administered on 08/29/17 14:02; Admin Dose 650 MG; Start 08/24/17 at 07:30 Acetaminophen (Tylenol Supp) 650 mg Q4H PRN [place] PAIN LEVEL 1-3 OR TEMP > 37C Last administered on 08/31/17 02:49; Admin Dose 650 MG; Start 08/24/17 at 07: 30 Ibuprofen (Motrin) 600 mg Q6H PRN PO PAIN LEVEL 1-3 OR FEVER; Start 08/24/17 at 07:30 Acetaminophen/ Hydrocodone Bitart ([place] (5/325)) 1 tab Q6H PRN PO PAIN LEVEL 4 -6; Start 08/24/17 at 07:30 Morphine Sulfate (morphine) 2 mg Q4H PRN IV PAIN LEVEL 7-10 Last administered on 08/27/17 03:38; Admin Dose 2 MG; Start 08/24/17 at 07:30 Lorazepam (Ativan) 1 mg Q2H PRN IV ANXIETY Last administered on 08/27/17 04:00 ; Admin Dose 1 MG; Start 08/24/17 at 07:30 Docusate Sodium (Colace) 100 mg Q12H PRN PO CONSTIPATION; Start 08/24/17 at 07: 30 Magnesium Hydroxide (Milk Of Mag) 30 ml DAILY PRN PO CONSTIPATION; Start at 07:30 Bisacodyl (Dulcolax) 5 mg DAILY PRN PO CONSTIPATION; Start 08/24/17 at 07:30 Bisacodyl (Dulcolax Supp) 10 mg DAILY PRN [place] CONSTIPATION; Start 08/24/17 at 07 :30 Sodium Biphosphate/ Sodium Phosphate (Fleet Enema) 133 ml DAILY PRN [place] CONSTIPATION; Start 08/24/17 at 07:30 Enoxaparin Sodium (Lovenox) 40 mg DAILY SC Last administered on 08/31/17 09: 02; Admin Dose 40 MG; Start 08/24/17 at 09:00 Hydralazine HCl (Apresoline) 10 mg Q6H PRN IV ELEVATED BLOOD PRESSURE Last administered on 08/29/17 14:35; Admin Dose 10 MG; Start 08/24/17 at 15:30 Meperidine HCl (Demerol) 12.5 mg Q4H PRN IV POST OPERATIVE SHIVERING; Start at 18:30 Meperidine HCl (Demerol) 25 mg Q4H PRN IV POST OPERATIVE SHIVERING; Start 08/24 at 18:30 Eye Lubricant (Akwa Oint) 1 applic Q6 BOTH EYES Last administered on 12:37; Admin Dose 1 APPLIC; Start 08/24/17 at 18:30 Eye Lubricant 2 drop 2 drop Q6 BOTH EYES Last administered on 08/31/17 12:37 ; Admin Dose 2 DROP; Start 08/24/17 at 18:30 Levetiracetam 100 ml @ 400 mls/hr Q12 IVPB Last administered on 08/31/17 08: 40; Admin Dose 400 MLS/HR; Start 08/25/17 at 10:00 Norepinephrine 16 mg/Dextrose 500 ml @ 1.87 mls/hr TITRATE IV Last administered on 08/26/17 14:32; Admin Dose 22.5 MLS/HR; Start 08/26/17 at 13:30 Fentanyl (Sublimaze) 100 ml @ 2.5 mls/hr TITRATE IV Last administered on 08/31 05:24; Admin Dose 10 MLS/HR; Start 08/27/17 at 09:30 Insulin Glargine (Lantus) 15 unit DAILY@08 SC Last administered on 08/31/17 08:39; Admin Dose 15 UNIT; Start 08/27/17 at 13:00 Miscellaneous Information 1 ea NOTE XX ; Start 08/28/17 at 11:30 Glucose (Glutose) 15 gm Q15M PRN PO DECREASED GLUCOSE; Start 08/28/17 at 11:30 Glucose (Glutose) 22.5 gm Q15M PRN PO DECREASED GLUCOSE; Start 08/28/17 at 11: 30 Dextrose (D50w Syringe) 25 ml Q15M PRN IV DECREASED GLUCOSE; Start 08/28/17 at 11:30 Dextrose (D50w Syringe) 50 ml Q15M PRN IV DECREASED GLUCOSE; Start 08/28/17 at 11:30 Glucagon (Glucagen) 1 mg Q15M PRN IM DECREASED GLUCOSE; Start 08/28/17 at 11:30 Glucose (Glutose) 15 gm Q15M PRN BUCCAL DECREASED GLUCOSE; Start 08/28/17 at 11 :30 IV Flush (NS 10 ml) 10 ml PRN PRN IV IV PROTOCOL; Start 08/28/17 at 14:00 Miscellaneous Information (Pending [facility] Order For Wound Care) This patient almanza... PRN PRN XX WOUND CARE; Start 08/28/17 at 23:00 Methylprednisolone Sodium Succinate (Solu-Medrol) 60 mg Q6 IV Last administered on 08/31/17 12:37; Admin Dose 60 MG; Start 08/29/17 at 12:00 Furosemide (Lasix) 40 mg DAILY IV Last administered on 08/31/17 08:40; Admin Dose 40 MG; Start 08/30/17 at 09:00 Metoprolol Tartrate 25 mg 25 mg BID PO ; Start 08/29/17 at 21:00; Status Future Hold Levofloxacin/ Dextrose 100 ml @ 100 mls/hr Q24H IVPB Last administered on 12:38; Admin Dose 100 MLS/HR; Start 08/29/17 at 13:00 Midazolam HCl 50 ml @ 1 mls/hr TITRATE IV Last administered on 08/31/17 09:00 ; Admin Dose 5 MLS/HR; Start 08/29/17 at 16:00 Vancomycin HCl/ Sodium Chloride (Vancocin/NS) 250 ml @ 83.333 mls/ hr Q8 IVPB Last administered on 08/31/17 06:26; Admin Dose 83.333 MLS/HR; Start 08/30/17 at 14:00 Miscellaneous Information VANCO TROUGH @ 1,300 ON ... ONCE ONCE XX ; Start at 13:00; Stop 08/31/17 at 13:01 Meropenem/Sodium Chloride 50 ml @ 100 mls/hr Q8 IVPB Last administered on 05:41; Admin Dose 100 MLS/HR; Start 08/30/17 at 22:00 Total Parenteral Nutrition (Tpn) 1,000 ml @ 50 mls/hr Q20H IV Last administered on 08/31/17 12:37; Admin Dose 50 MLS/HR; Start 08/30/17 at 16:00 Famotidine (Pepcid Iv) 20 mg BID IV Last administered on 08/31/17 08:59; Admin Dose 20 MG; Start 08/31/17 at 09:00 Levothyroxine Sodium (Synthroid Iv) 25 mcg DAILY@06 IV Last administered on 05:39; Admin Dose 25 MCG; Start 08/31/17 at 06:00 Aspirin (Aspirin) 81 mg DAILY [place] ; Start 08/31/17 at 09:00; Status Future Hold Insulin Aspart (Novolog Insulin Pen) NOVOLOG *MILD* ALGORI... Q4 SC Last administered on 08/31/17 08:45; Admin Dose 3 UNIT; Start 08/31/17 at 05:00 AMALIA LUKE Aug 31, 2017 12:47
--- NOTE | 2017-08-31 17:18 | PN ---
DATE: 08/31/2017 SUBJECTIVE: The patient remains intubated and sedated. Still with low-grade fevers. On high PEEP of 16 and FiO2 of 100. LABORATORY: WBC 11.3, platelets 239, neutrophils 91.2. BUN 27, creatinine 0.72. MICROBIOLOGY: Cultures negative. ANTIMICROBIALS: 1. Vancomycin. 2. Merrem. 3. Levaquin. INDWELLINGS: Endotracheal tube, NG tube, Fagan catheter, PICC line. PHYSICAL EXAMINATION: GENERAL: Obese, well-developed, middle-aged, man who is in no distress. HEENT: Head atraumatic, normocephalic. Sclerae anicteric. Buccal mucosa dry. NECK: Supple. CHEST: Rise symmetrical. Breath sounds diminished to bases. HEART: S1, S2. ABDOMEN: Soft. Bowel tones hypoactive. EXTREMITIES: With bilateral edema. ASSESSMENT: 1. Sepsis, status post shock with ongoing fevers. 2. Status post cardiopulmonary arrest. 3. Aspiration pneumonia. 4. Acute respiratory failure. 5. Seizure disorder. 6. Coagulase-negative Staphylococcus bacteremia on admission consistent with contaminant. 7. Diabetes. 8. Polycythemia. PLAN: The patient remains hemodynamically stable. Covered with broad-spectrum antibiotics pending final workup. As per hematology in regards to diagnosis of . Blood cultures have been negativ e. We will continue him on current regimen and follow recommendations of consultants. Dictated By: BEKA WATKINS VICE CHAIR for JORDAN CHILDS MD NI/NTS Conf#: [id number] DID#: [id number] CC: MIKE LUONG MD;*EndCC*
--- NOTE | 2017-08-31 17:37 | RADRPT ---
PROCEDURE: XR Abdomen. CLINICAL INDICATION: Abdomen pain. TECHNIQUE: AP supine abdomen x-ray. COMPARISON: None. FINDINGS: The bowel gas pattern is normal with no evidence of obstruction. Nasogastric tube is present with the tip in the stomach and a Fagan catheter is present in the bladd er. There are no abnormal calcifications overlying the urinary tracts. The osseus structures are unremarkable. The included portion lower chest demonstrates opacification of the left lung base. IMPRESSION: 1. No evidence of obstruction. 2. G tube and Fagan catheter in position. 3. Opacification of the left lung base. RPTAT: QQ .Niels Stanton MD, MD Date Time Electronically viewed and signed by .Niels Stanton MD, MD on 08/31/2017 17:37 .R/
[2017-09-01] VITALS (36 sets, daily range): BP systolic 125–159; BP diastolic 76–114; PULSE 66–90; RESP 18–50
[2017-09-01] MEDS: METHYLPREDNISOLONE 125 MG INJ IV SCH ×5 (00:13→23:52)
[2017-09-01] MEDS: ARTIFICIAL TEARS 15 ML OPH BOTH EYES SCH ×5 (00:13→23:52)
[2017-09-01] MEDS: OCULAR LUBRICANT 3.5 GM OPH OINT BOTH EYES SCH ×5 (00:14→23:52)
[2017-09-01] MEDS: IPRATROPIUM (HFA) 12.9 GM INHALER INH SCH ×6 (01:06→21:11)
[2017-09-01] MEDS: ALBUTEROL HFA 8 GM INHALER INH SCH ×6 (01:06→21:11)
[2017-09-01] MEDS: INSULIN ASPART [NOVOLOG] 3 ML PEN SC SCH ×6 (01:26→20:46)
[2017-09-01] MEDS: FENTAnyl (DRIP) 1000 mcg/100mL 100 ML IV SCH ×3 (01:34→18:51)
[2017-09-01] MEDS: ACCU-CHEK XX SCH (02:00)
[2017-09-01] MEDS: MIDAZOLAM (DRIP) 50 mg/50 mL 50 ML IV SCH ×3 (04:11→18:50)
[2017-09-01] MEDS: MEROPENEM 1 GM/50ML(PMX) 50 ML IVPB SCH ×3 (06:04→21:59)
[2017-09-01] MEDS: VANCOMYCIN 1.5 GM in SOD CHLORIDE 0.9% 250 ML IVPB SCH ×3 (06:04→22:39)
[2017-09-01] MEDS: LEVOTHYROXINE 100 MCG VIAL IV SCH (06:05)
[2017-09-01 07:19] LABS: CALCIUM 7.3 mg/dl (8.4-10.2); CREATININE 0.75 mg/dl (0.61-1.24); MAGNESIUM 1.8 mg/dl (1.7-2.5); PHOSPHORUS 3.4 mg/dl (2.5-4.9); POTASSIUM 3.5 mmol/L (3.5-5.1)
[2017-09-01] MEDS: INSULIN GLARGINE [LANtus] 3 ML PEN SC SCH (08:11)
[2017-09-01] MEDS: ENOXAPARIN 40 MG/0.4 ML SYG SC SCH (08:15)
[2017-09-01] MEDS: FUROSEMIDE 40 MG INJ IV SCH (08:19)
[2017-09-01] MEDS: FAMOTIDINE 20 MG INJ IV SCH ×2 (08:21→20:34)
[2017-09-01] MEDS: LEVETIRACETAM 500 MG (PMX) 100 ML IVPB SCH ×2 (08:21→20:35)
[2017-09-01] MEDS: TPN 1,000 ML IV SCH (08:39)
[2017-09-01 09:14] LABS: CALCIUM 8.6 mg/dl (8.4-10.2); CREATININE 0.73 mg/dl (0.61-1.24); POTASSIUM 4.3 mmol/L (3.5-5.1)
--- NOTE | 2017-09-01 11:35 | CONS ---
Date/Time of Note Date/Time of Note DATE: 09/01/17 TIME: 11:33 Consult Date/Type/Reason Admit Date/Time Aug 24, 2017 at 07:05 Initial Consult Date 08/27/17 Type of Consultation: Pulmonary Ordering Provider: MIKE LUONG MD Subjective Patient remains unresponsive on mechanical ventilation. Objective Vital Signs Date Time Temp Pulse Resp B/P Pulse Ox O2 Delivery O2 Flow Rate FiO2 09/01/17 11:00 73 29 139/85 100 Mechanical Ventilator 09/01/17 10:57 100 09/01/17 08:00 98.1 Intake and Output 08/31/17 08/31/17 09/01/17 15:00 23:00 07:00 Intake Total 820 ml 975 ml 528 ml Output Total 1465 ml 707 ml 534 ml Balance -645 ml 268 ml -6 ml Exam PHYSICAL EXAMINATION: GENERAL: Well-nourished well-developed gentleman comfortable at rest on mechanical ventilation. VITAL SIGNS: NECK: Supple, no JVD or lymphadenopathy. CARDIAC: S1, S2, no added sounds or murmurs. CHEST: Diminished air entry bilaterally. ABDOMEN: Soft, nontender. No guarding or rebound. EXTREMITIES: No cyanosis, clubbing, 1+ edema. NEUROLOGIC: Vegetative state. Results/Medications Result Diagram: 08/31/17 0515 09/01/17 0816 Results 24 hrs Laboratory Tests Test 08/31/17 12:39 08/31/17 12:52 08/31/17 17:10 08/31/17 21:01 Bedside Glucose 231 H 181 189 Vancomycin Level Trough 16.4 Test 09/01/17 01:23 09/01/17 02:44 09/01/17 05:55 09/01/17 06:02 Bedside Glucose 188 201 185 Sodium Level 140 Potassium Level 3.5 Chloride Level 102 Carbon Dioxide Level 29 Anion Gap 13 Blood Urea Nitrogen 27 H Creatinine 0.75 Glucose Level 546 #*H Calcium Level 7.3 L Phosphorus Level 3.4 Magnesium Level 1.8 Test 09/01/17 08:08 09/01/17 08:16 Bedside Glucose 209 Sodium Level 142 Potassium Level 4.3 Chloride Level 103 Carbon Dioxide Level 31 Anion Gap 12 Blood Urea Nitrogen 30 H Creatinine 0.73 Glucose Level 223 #H Calcium Level 8.6 Medications Current Medications Flumazenil (Romazicon) 0.2 mg Q1M PRN IV BENZODIAZEPINE OVERDOSE; Start at 07:30 Naloxone HCl (Narcan) 0.4 mg Q3M PRN IV DECREASED REPIRATORY RATE; Start at 07:30 Ondansetron HCl (Zofran Inj) 4 mg Q6H PRN IV NAUSEA AND/OR VOMITING; Start 08/24/17 at 07:30 Nitroglycerin (Nitroglycerin (Sl Tab) 0.4 Mg) 1 tab Q5M PRN SL CHEST PAIN; Start 08/24/17 at 07:30 Acetaminophen (Tylenol Liquid) 650 mg Q6H PRN PO PAIN LEVEL 1-3 OR FEVER; Start 08/24/17 at 07:30 Acetaminophen (Tylenol Tab) 650 mg Q6H PRN PO PAIN LEVEL 1-3 OR FEVER Last administered on 08/29/17 14:02; Admin Dose 650 MG; Start 08/24/17 at 07:30 Acetaminophen (Tylenol Supp) 650 mg Q4H PRN [place] PAIN LEVEL 1-3 OR TEMP > 37C Last administered on 08/31/17 02:49; Admin Dose 650 MG; Start 08/24/17 at 07: 30 Ibuprofen (Motrin) 600 mg Q6H PRN PO PAIN LEVEL 1-3 OR FEVER; Start 08/24/17 at 07:30 Acetaminophen/ Hydrocodone Bitart ([place] (5/325)) 1 tab Q6H PRN PO PAIN LEVEL 4 -6; Start 08/24/17 at 07:30 Morphine Sulfate (morphine) 2 mg Q4H PRN IV PAIN LEVEL 7-10 Last administered on 08/27/17 03:38; Admin Dose 2 MG; Start 08/24/17 at 07:30 Lorazepam (Ativan) 1 mg Q2H PRN IV ANXIETY Last administered on 08/27/17 04:00 ; Admin Dose 1 MG; Start 08/24/17 at 07:30 Docusate Sodium (Colace) 100 mg Q12H PRN PO CONSTIPATION; Start 08/24/17 at 07: 30 Magnesium Hydroxide (Milk Of Mag) 30 ml DAILY PRN PO CONSTIPATION; Start at 07:30 Bisacodyl (Dulcolax) 5 mg DAILY PRN PO CONSTIPATION; Start 08/24/17 at 07:30 Bisacodyl (Dulcolax Supp) 10 mg DAILY PRN [place] CONSTIPATION; Start 08/24/17 at 07 :30 Sodium Biphosphate/ Sodium Phosphate (Fleet Enema) 133 ml DAILY PRN [place] CONSTIPATION; Start 08/24/17 at 07:30 Enoxaparin Sodium (Lovenox) 40 mg DAILY SC Last administered on 09/01/17 08: 15; Admin Dose 40 MG; Start 08/24/17 at 09:00 Hydralazine HCl (Apresoline) 10 mg Q6H PRN IV ELEVATED BLOOD PRESSURE Last administered on 08/29/17 14:35; Admin Dose 10 MG; Start 08/24/17 at 15:30 Meperidine HCl (Demerol) 12.5 mg Q4H PRN IV POST OPERATIVE SHIVERING; Start at 18:30 Meperidine HCl (Demerol) 25 mg Q4H PRN IV POST OPERATIVE SHIVERING; Start 08/24 at 18:30 Eye Lubricant (Akwa Oint) 1 applic Q6 BOTH EYES Last administered on 06:05; Admin Dose 1 APPLIC; Start 08/24/17 at 18:30 Eye Lubricant 2 drop 2 drop Q6 BOTH EYES Last administered on 09/01/17 06:05 ; Admin Dose 2 DROP; Start 08/24/17 at 18:30 Levetiracetam 100 ml @ 400 mls/hr Q12 IVPB Last administered on 09/01/17 08: 21; Admin Dose 400 MLS/HR; Start 08/25/17 at 10:00 Norepinephrine 16 mg/Dextrose 500 ml @ 1.87 mls/hr TITRATE IV Last administered on 08/26/17 14:32; Admin Dose 22.5 MLS/HR; Start 08/26/17 at 13:30 Fentanyl (Sublimaze) 100 ml @ 2.5 mls/hr TITRATE IV Last administered on 09/01 08:27; Admin Dose 10 MLS/HR; Start 08/27/17 at 09:30 Insulin Glargine (Lantus) 15 unit DAILY@08 SC Last administered on 09/01/17 08:11; Admin Dose 15 UNIT; Start 08/27/17 at 13:00 Miscellaneous Information 1 ea NOTE XX ; Start 08/28/17 at 11:30 Glucose (Glutose) 15 gm Q15M PRN PO DECREASED GLUCOSE; Start 08/28/17 at 11:30 Glucose (Glutose) 22.5 gm Q15M PRN PO DECREASED GLUCOSE; Start 08/28/17 at 11: 30 Dextrose (D50w Syringe) 25 ml Q15M PRN IV DECREASED GLUCOSE; Start 08/28/17 at 11:30 Dextrose (D50w Syringe) 50 ml Q15M PRN IV DECREASED GLUCOSE; Start 08/28/17 at 11:30 Glucagon (Glucagen) 1 mg Q15M PRN IM DECREASED GLUCOSE; Start 08/28/17 at 11:30 Glucose (Glutose) 15 gm Q15M PRN BUCCAL DECREASED GLUCOSE; Start 08/28/17 at 11 :30 IV Flush (NS 10 ml) 10 ml PRN PRN IV IV PROTOCOL; Start 08/28/17 at 14:00 [facility]isc[facility] This patient almanza... PRN PRN XX WOUND CARE; Start 08/28/17 at 23:00 Methylprednisolone Sodium Succinate (Solu-Medrol) 60 mg Q6 IV Last administered on 09/01/17 06:05; Admin Dose 60 MG; Start 08/29/17 at 12:00 Furosemide (Lasix) 40 mg DAILY IV Last administered on 09/01/17 08:19; Admin Dose 40 MG; Start 08/30/17 at 09:00 Metoprolol Tartrate 25 mg 25 mg BID PO ; Start 08/29/17 at 21:00; Status Future Hold Levofloxacin/ Dextrose 100 ml @ 100 mls/hr Q24H IVPB Last administered on 12:38; Admin Dose 100 MLS/HR; Start 08/29/17 at 13:00 Midazolam HCl 50 ml @ 1 mls/hr TITRATE IV Last administered on 09/01/17 11:33 ; Admin Dose 7 MLS/HR; Start 08/29/17 at 16:00 Vancomycin HCl 1.5 gm/Sodium Chloride 250 ml @ 83.333 mls/ hr Q8 IVPB Last administered on 09/01/17 06:04; Admin Dose 83.333 MLS/HR; Start 08/30/17 at 14 :00 Meropenem/Sodium Chloride 50 ml @ 100 mls/hr Q8 IVPB Last administered on 06:04; Admin Dose 100 MLS/HR; Start 08/30/17 at 22:00 Total Parenteral Nutrition (Tpn) 1,000 ml @ 50 mls/hr Q20H IV Last administered on 09/01/17 08:39; Admin Dose 50 MLS/HR; Start 08/30/17 at 16:00 Famotidine (Pepcid Iv) 20 mg BID IV Last administered on 09/01/17 08:21; Admin Dose 20 MG; Start 08/31/17 at 09:00 Levothyroxine Sodium (Synthroid Iv) 25 mcg DAILY@06 IV Last administered on 06:05; Admin Dose 25 MCG; Start 08/31/17 at 06:00 Aspirin (Aspirin) 81 mg DAILY MD ; Start 08/31/17 at 09:00; Status Future Hold Diagnostic Test (Pha) (Accu-Chek) 1 ea 02 XX ; Start 09/01/17 at 02:00 Insulin Aspart (Novolog Insulin Pen) NOVOLOG *MODERATE* ALGORI... Q4 SC Last administered on 09/01/17 08:12; Admin Dose 4 UNIT; Start 08/31/17 at 17:00 Assessment/Plan Chief Complaint/Hosp Course IMP: 1. s/p Cardiopulmonary arrest--likely due to aspiration and central airway obstruction 2. Seizure Disorder 3. Gram + bacteremia--likely contaminant 4. Possible anoxic brain injury 5. CAP vs. aspiration, no evidence of pulmonary embolism on CT angiogram 6. Morbid obesity 7. DM RECS: 1. Continue mechanical ventilation for weaning, decrease FiO2 and PEEP as tolerated. Currently on volume control ventilation. 2. Anti-epileptic Rx and propofol gtt 3. Nasogastric tube feeding as tolerated 4. Abx 5. F/U Cx's 6. DVT and GI prophylaxis 7. EEG and neuro evaluation. 8. Empiric steroid trial. 35 min cc time Palliative care consult. Prognosis very poor. Problems: JULIANA WASHINGTON MD, [facility] Sep 01, 2017 11:35
[2017-09-01] MEDS: LEVOFLOXACIN 500MG/D5W (PMX) 100 ML IVPB SCH (12:05)
--- NOTE | 2017-09-01 13:22 | PN ---
AMALIA LUKE 09/01/17 1322: Date/Time of Note Date/Time of Note DATE: 09/01/17 TIME: 13:20 Assessment/Plan VTE Prophylaxis VTE Prophylaxis Intervention: SCD's Lines/Catheters IV Catheter Type (from Nrs): PICC Line Central line still needed: Yes Urinary Cath still in place: Yes Reason Cath still needed: urinary retention Assessment/Plan Chief Complaint/Hosp Course 1. s/p cardiac arrest 2. Sepsis with Gram + bacteremia 3. Morbid obesity 4. Hypertension 5. history of flu like sickness before admission 6. Anemia 7. Seizure Disorder 8. Possible anoxic brain injury. 7. Underlying diabetes mellitus. 8. Decreased Urinary output Problems: Assessment/Plan 1. Spoke to girlfriend , update her with condition 2. Spoke to dr Gaviria 3. Second EEG is pending 4. continue critical care Subjective 24 Hr Interval Summary Subjective hx not possible: pt non-verbal, pt critical Exam/Review of Systems Vital Signs Vitals Vital Signs Date Time Temp Pulse Resp B/P Pulse Ox O2 Delivery O2 Flow Rate FiO2 09/01/17 12:00 98.3 74 26 138/85 99 Mechanical Ventilator 09/01/17 10:57 100 Intake and Output 08/31/17 08/31/17 09/01/17 15:00 23:00 07:00 Intake Total 820 ml 975 ml 528 ml Output Total 1465 ml 707 ml 534 ml Balance -645 ml 268 ml -6 ml Exam Constitutional: obese Neck: supple Respiratory: diminished breath sounds Cardiovascular: regular rate and rhythm Gastrointestinal: other (ng tube), soft Genitourinary - Male: nl scrotum Results Result Diagram: 08/31/17 0515 09/01/17 0816 Results 24 hrs Laboratory Tests Test 08/31/17 17:10 08/31/17 21:01 09/01/17 01:23 09/01/17 02:44 Bedside Glucose 181 189 188 201 Test 09/01/17 05:55 09/01/17 06:02 09/01/17 08:08 09/01/17 08:16 Sodium Level 140 142 Potassium Level 3.5 4.3 Chloride Level 102 103 Carbon Dioxide Level 29 31 Anion Gap 13 12 Blood Urea Nitrogen 27 H 30 H Creatinine 0.75 0.73 Glucose Level 546 #*H 223 #H Calcium Level 7.3 L 8.6 Phosphorus Level 3.4 Magnesium Level 1.8 Bedside Glucose 185 209 Medications Medications Current Medications Flumazenil (Romazicon) 0.2 mg Q1M PRN IV BENZODIAZEPINE OVERDOSE; Start at 07:30 Naloxone HCl (Narcan) 0.4 mg Q3M PRN IV DECREASED REPIRATORY RATE; Start at 07:30 Ondansetron HCl (Zofran Inj) 4 mg Q6H PRN IV NAUSEA AND/OR VOMITING; Start 08/24/17 at 07:30 Nitroglycerin (Nitroglycerin (Sl Tab) 0.4 Mg) 1 tab Q5M PRN SL CHEST PAIN; Start 08/24/17 at 07:30 Acetaminophen (Tylenol Liquid) 650 mg Q6H PRN PO PAIN LEVEL 1-3 OR FEVER; Start 08/24/17 at 07:30 Acetaminophen (Tylenol Tab) 650 mg Q6H PRN PO PAIN LEVEL 1-3 OR FEVER Last administered on 08/29/17 14:02; Admin Dose 650 MG; Start 08/24/17 at 07:30 Acetaminophen (Tylenol Supp) 650 mg Q4H PRN [place] PAIN LEVEL 1-3 OR TEMP > 37C Last administered on 08/31/17 02:49; Admin Dose 650 MG; Start 08/24/17 at 07: 30 Ibuprofen (Motrin) 600 mg Q6H PRN PO PAIN LEVEL 1-3 OR FEVER; Start 08/24/17 at 07:30 Acetaminophen/ Hydrocodone Bitart ([place] (5/325)) 1 tab Q6H PRN PO PAIN LEVEL 4 -6; Start 08/24/17 at 07:30 Morphine Sulfate (morphine) 2 mg Q4H PRN IV PAIN LEVEL 7-10 Last administered on 08/27/17 03:38; Admin Dose 2 MG; Start 08/24/17 at 07:30 Lorazepam (Ativan) 1 mg Q2H PRN IV ANXIETY Last administered on 08/27/17 04:00 ; Admin Dose 1 MG; Start 08/24/17 at 07:30 Docusate Sodium (Colace) 100 mg Q12H PRN PO CONSTIPATION; Start 08/24/17 at 07: 30 Magnesium Hydroxide (Milk Of Mag) 30 ml DAILY PRN PO CONSTIPATION; Start at 07:30 Bisacodyl (Dulcolax) 5 mg DAILY PRN PO CONSTIPATION; Start 08/24/17 at 07:30 Bisacodyl (Dulcolax Supp) 10 mg DAILY PRN [place] CONSTIPATION; Start 08/24/17 at 07 :30 Sodium Biphosphate/ Sodium Phosphate (Fleet Enema) 133 ml DAILY PRN [place] CONSTIPATION; Start 08/24/17 at 07:30 Enoxaparin Sodium (Lovenox) 40 mg DAILY SC Last administered on 09/01/17 08: 15; Admin Dose 40 MG; Start 08/24/17 at 09:00 Hydralazine HCl (Apresoline) 10 mg Q6H PRN IV ELEVATED BLOOD PRESSURE Last administered on 08/29/17 14:35; Admin Dose 10 MG; Start 08/24/17 at 15:30 Meperidine HCl (Demerol) 12.5 mg Q4H PRN IV POST OPERATIVE SHIVERING; Start at 18:30 Meperidine HCl (Demerol) 25 mg Q4H PRN IV POST OPERATIVE SHIVERING; Start 08/24 at 18:30 Eye Lubricant (Akwa Oint) 1 applic Q6 BOTH EYES Last administered on 11:38; Admin Dose 1 APPLIC; Start 08/24/17 at 18:30 Eye Lubricant 2 drop 2 drop Q6 BOTH EYES Last administered on 09/01/17 11:37 ; Admin Dose 2 DROP; Start 08/24/17 at 18:30 Levetiracetam 100 ml @ 400 mls/hr Q12 IVPB Last administered on 09/01/17 08: 21; Admin Dose 400 MLS/HR; Start 08/25/17 at 10:00 Norepinephrine 16 mg/Dextrose 500 ml @ 1.87 mls/hr TITRATE IV Last administered on 08/26/17 14:32; Admin Dose 22.5 MLS/HR; Start 08/26/17 at 13:30 Fentanyl (Sublimaze) 100 ml @ 2.5 mls/hr TITRATE IV Last administered on 09/01 08:27; Admin Dose 10 MLS/HR; Start 08/27/17 at 09:30 Insulin Glargine (Lantus) 15 unit DAILY@08 SC Last administered on 09/01/17 08:11; Admin Dose 15 UNIT; Start 08/27/17 at 13:00 Miscellaneous Information 1 ea NOTE XX ; Start 08/28/17 at 11:30 Glucose (Glutose) 15 gm Q15M PRN PO DECREASED GLUCOSE; Start 08/28/17 at 11:30 Glucose (Glutose) 22.5 gm Q15M PRN PO DECREASED GLUCOSE; Start 08/28/17 at 11: 30 Dextrose (D50w Syringe) 25 ml Q15M PRN IV DECREASED GLUCOSE; Start 08/28/17 at 11:30 Dextrose (D50w Syringe) 50 ml Q15M PRN IV DECREASED GLUCOSE; Start 08/28/17 at 11:30 Glucagon (Glucagen) 1 mg Q15M PRN IM DECREASED GLUCOSE; Start 08/28/17 at 11:30 Glucose (Glutose) 15 gm Q15M PRN BUCCAL DECREASED GLUCOSE; Start 08/28/17 at 11 :30 IV Flush (NS 10 ml) 10 ml PRN PRN IV IV PROTOCOL; Start 08/28/17 at 14:00 [facility]isc[facility] This patient almanza... PRN PRN XX WOUND CARE; Start 08/28/17 at 23:00 Methylprednisolone Sodium Succinate (Solu-Medrol) 60 mg Q6 IV Last administered on 09/01/17 11:35; Admin Dose 60 MG; Start 08/29/17 at 12:00 Furosemide (Lasix) 40 mg DAILY IV Last administered on 09/01/17 08:19; Admin Dose 40 MG; Start 08/30/17 at 09:00 Metoprolol Tartrate 25 mg 25 mg BID PO ; Start 08/29/17 at 21:00; Status Future Hold Levofloxacin/ Dextrose 100 ml @ 100 mls/hr Q24H IVPB Last administered on 12:05; Admin Dose 100 MLS/HR; Start 08/29/17 at 13:00 Midazolam HCl 50 ml @ 1 mls/hr TITRATE IV Last administered on 09/01/17 11:33 ; Admin Dose 7 MLS/HR; Start 08/29/17 at 16:00 Vancomycin HCl 1.5 gm/Sodium Chloride 250 ml @ 83.333 mls/ hr Q8 IVPB Last administered on 09/01/17 06:04; Admin Dose 83.333 MLS/HR; Start 08/30/17 at 14 :00 Meropenem/Sodium Chloride 50 ml @ 100 mls/hr Q8 IVPB Last administered on 06:04; Admin Dose 100 MLS/HR; Start 08/30/17 at 22:00 Total Parenteral Nutrition (Tpn) 1,000 ml @ 50 mls/hr Q20H IV Last administered on 09/01/17 08:39; Admin Dose 50 MLS/HR; Start 08/30/17 at 16:00 Famotidine (Pepcid Iv) 20 mg BID IV Last administered on 09/01/17 08:21; Admin Dose 20 MG; Start 08/31/17 at 09:00 Levothyroxine Sodium (Synthroid Iv) 25 mcg DAILY@06 IV Last administered on 06:05; Admin Dose 25 MCG; Start 08/31/17 at 06:00 Aspirin (Aspirin) 81 mg DAILY [place] ; Start 08/31/17 at 09:00; Status Future Hold Diagnostic Test (Pha) (Accu-Chek) 1 ea 02 XX ; Start 09/01/17 at 02:00 Insulin Aspart (Novolog Insulin Pen) NOVOLOG *MODERATE* ALGORI... Q4 SC Last administered on 09/01/17 08:12; Admin Dose 4 UNIT; Start 08/31/17 at 17:00 ELMER RAE MD 09/01/17 1449: Assessment/Plan Assessment/Plan Assessment/Plan Pt seen and examined with [employer] Amalia Sluggish pupil responses, on 100% fi02 on iv abx per I.D ECHO and CTPA negative Anoxic encephalopathy , neuro following Exam/Review of Systems Results Result Diagram: 08/31/17 0515 09/01/17 0816 AMALIA LUKE Sep 01, 2017 13:22 ELMER RAE MD Sep 01, 2017 14:49
--- NOTE | 2017-09-01 13:46 | CONS ---
Date/Time of Note Date/Time of Note DATE: 09/01/17 TIME: 13:46 Assessment/Plan Assessment/Plan Additional Assessment/Plan Critically ill - will follow with ICU team. Consultation Date/Type/Reason Admit Date/Time Aug 24, 2017 at 07:05 Initial Consult Date 08/27/17 Type of Consultation: Pulmonary Referring Provider: MIKE LUONG MD Exam/Review of Systems Vital Signs Vitals Vital Signs Date Time Temp Pulse Resp B/P Pulse Ox O2 Delivery O2 Flow Rate FiO2 09/01/17 12:00 98.3 74 26 138/85 99 Mechanical Ventilator 09/01/17 10:57 100 Intake and Output 08/31/17 08/31/17 09/01/17 15:00 23:00 07:00 Intake Total 820 ml 975 ml 528 ml Output Total 1465 ml 707 ml 534 ml Balance -645 ml 268 ml -6 ml Results Result Diagram: 08/31/17 0515 09/01/17 0816 Results 24 hrs Laboratory Tests Test 08/31/17 17:10 08/31/17 21:01 09/01/17 01:23 09/01/17 02:44 Bedside Glucose 181 189 188 201 Test 09/01/17 05:55 09/01/17 06:02 09/01/17 08:08 09/01/17 08:16 Sodium Level 140 142 Potassium Level 3.5 4.3 Chloride Level 102 103 Carbon Dioxide Level 29 31 Anion Gap 13 12 Blood Urea Nitrogen 27 H 30 H Creatinine 0.75 0.73 Glucose Level 546 #*H 223 #H Calcium Level 7.3 L 8.6 Phosphorus Level 3.4 Magnesium Level 1.8 Bedside Glucose 185 209 Test 09/01/17 13:23 Bedside Glucose 190 Medications Medications Current Medications Flumazenil (Romazicon) 0.2 mg Q1M PRN IV BENZODIAZEPINE OVERDOSE; Start at 07:30 Naloxone HCl (Narcan) 0.4 mg Q3M PRN IV DECREASED REPIRATORY RATE; Start at 07:30 Ondansetron HCl (Zofran Inj) 4 mg Q6H PRN IV NAUSEA AND/OR VOMITING; Start 08/24/17 at 07:30 Nitroglycerin (Nitroglycerin (Sl Tab) 0.4 Mg) 1 tab Q5M PRN SL CHEST PAIN; Start 08/24/17 at 07:30 Acetaminophen (Tylenol Liquid) 650 mg Q6H PRN PO PAIN LEVEL 1-3 OR FEVER; Start 08/24/17 at 07:30 Acetaminophen (Tylenol Tab) 650 mg Q6H PRN PO PAIN LEVEL 1-3 OR FEVER Last administered on 08/29/17 14:02; Admin Dose 650 MG; Start 08/24/17 at 07:30 Acetaminophen (Tylenol Supp) 650 mg Q4H PRN [place] PAIN LEVEL 1-3 OR TEMP > 37C Last administered on 08/31/17 02:49; Admin Dose 650 MG; Start 08/24/17 at 07: 30 Ibuprofen (Motrin) 600 mg Q6H PRN PO PAIN LEVEL 1-3 OR FEVER; Start 08/24/17 at 07:30 Acetaminophen/ Hydrocodone Bitart ([place] (5/325)) 1 tab Q6H PRN PO PAIN LEVEL 4 -6; Start 08/24/17 at 07:30 Morphine Sulfate (morphine) 2 mg Q4H PRN IV PAIN LEVEL 7-10 Last administered on 08/27/17 03:38; Admin Dose 2 MG; Start 08/24/17 at 07:30 Lorazepam (Ativan) 1 mg Q2H PRN IV ANXIETY Last administered on 08/27/17 04:00 ; Admin Dose 1 MG; Start 08/24/17 at 07:30 Docusate Sodium (Colace) 100 mg Q12H PRN PO CONSTIPATION; Start 08/24/17 at 07: 30 Magnesium Hydroxide (Milk Of Mag) 30 ml DAILY PRN PO CONSTIPATION; Start at 07:30 Bisacodyl (Dulcolax) 5 mg DAILY PRN PO CONSTIPATION; Start 08/24/17 at 07:30 Bisacodyl (Dulcolax Supp) 10 mg DAILY PRN [place] CONSTIPATION; Start 08/24/17 at 07 :30 Sodium Biphosphate/ Sodium Phosphate (Fleet Enema) 133 ml DAILY PRN [place] CONSTIPATION; Start 08/24/17 at 07:30 Enoxaparin Sodium (Lovenox) 40 mg DAILY [place] Last administered on 09/01/17 08: 15; Admin Dose 40 MG; Start 08/24/17 at 09:00 Hydralazine HCl (Apresoline) 10 mg Q6H PRN IV ELEVATED BLOOD PRESSURE Last administered on 08/29/17 14:35; Admin Dose 10 MG; Start 08/24/17 at 15:30 Meperidine HCl (Demerol) 12.5 mg Q4H PRN IV POST OPERATIVE SHIVERING; Start at 18:30 Meperidine HCl (Demerol) 25 mg Q4H PRN IV POST OPERATIVE SHIVERING; Start 08/24 at 18:30 Eye Lubricant (Akwa Oint) 1 applic Q6 BOTH EYES Last administered on 11:38; Admin Dose 1 APPLIC; Start 08/24/17 at 18:30 Eye Lubricant 2 drop 2 drop Q6 BOTH EYES Last administered on 09/01/17 11:37 ; Admin Dose 2 DROP; Start 08/24/17 at 18:30 Levetiracetam 100 ml @ 400 mls/hr Q12 IVPB Last administered on 09/01/17 08: 21; Admin Dose 400 MLS/HR; Start 08/25/17 at 10:00 Norepinephrine 16 mg/Dextrose 500 ml @ 1.87 mls/hr TITRATE IV Last administered on 08/26/17 14:32; Admin Dose 22.5 MLS/HR; Start 08/26/17 at 13:30 Fentanyl (Sublimaze) 100 ml @ 2.5 mls/hr TITRATE IV Last administered on 09/01 08:27; Admin Dose 10 MLS/HR; Start 08/27/17 at 09:30 Insulin Glargine (Lantus) 15 unit DAILY@08 SC Last administered on 09/01/17 08:11; Admin Dose 15 UNIT; Start 08/27/17 at 13:00 Miscellaneous Information 1 ea NOTE XX ; Start 08/28/17 at 11:30 Glucose (Glutose) 15 gm Q15M PRN PO DECREASED GLUCOSE; Start 08/28/17 at 11:30 Glucose (Glutose) 22.5 gm Q15M PRN PO DECREASED GLUCOSE; Start 08/28/17 at 11: 30 Dextrose (D50w Syringe) 25 ml Q15M PRN IV DECREASED GLUCOSE; Start 08/28/17 at 11:30 Dextrose (D50w Syringe) 50 ml Q15M PRN IV DECREASED GLUCOSE; Start 08/28/17 at 11:30 Glucagon (Glucagen) 1 mg Q15M PRN IM DECREASED GLUCOSE; Start 08/28/17 at 11:30 Glucose (Glutose) 15 gm Q15M PRN BUCCAL DECREASED GLUCOSE; Start 08/28/17 at 11 :30 IV Flush (NS 10 ml) 10 ml PRN PRN IV IV PROTOCOL; Start 08/28/17 at 14:00 Miscellaneous Information (Pending [facility] Order For Wound Care) This patient almanza... PRN PRN XX WOUND CARE; Start 08/28/17 at 23:00 Methylprednisolone Sodium Succinate (Solu-Medrol) 60 mg Q6 IV Last administered on 09/01/17 11:35; Admin Dose 60 MG; Start 08/29/17 at 12:00 Furosemide (Lasix) 40 mg DAILY IV Last administered on 09/01/17 08:19; Admin Dose 40 MG; Start 08/30/17 at 09:00 Metoprolol Tartrate 25 mg 25 mg BID PO ; Start 08/29/17 at 21:00; Status Future Hold Levofloxacin/ Dextrose 100 ml @ 100 mls/hr Q24H IVPB Last administered on 12:05; Admin Dose 100 MLS/HR; Start 08/29/17 at 13:00 Midazolam HCl 50 ml @ 1 mls/hr TITRATE IV Last administered on 09/01/17 11:33 ; Admin Dose 7 MLS/HR; Start 08/29/17 at 16:00 Vancomycin HCl 1.5 gm/Sodium Chloride 250 ml @ 83.333 mls/ hr Q8 IVPB Last administered on 09/01/17 06:04; Admin Dose 83.333 MLS/HR; Start 08/30/17 at 14 :00 Meropenem/Sodium Chloride 50 ml @ 100 mls/hr Q8 IVPB Last administered on 13:27; Admin Dose 100 MLS/HR; Start 08/30/17 at 22:00 Total Parenteral Nutrition (Tpn) 1,000 ml @ 50 mls/hr Q20H IV Last administered on 09/01/17 08:39; Admin Dose 50 MLS/HR; Start 08/30/17 at 16:00 Famotidine (Pepcid Iv) 20 mg BID IV Last administered on 09/01/17 08:21; Admin Dose 20 MG; Start 08/31/17 at 09:00 Levothyroxine Sodium (Synthroid Iv) 25 mcg DAILY@06 IV Last administered on 06:05; Admin Dose 25 MCG; Start 08/31/17 at 06:00 Aspirin (Aspirin) 81 mg DAILY [place] ; Start 08/31/17 at 09:00; Status Future Hold Diagnostic Test (Pha) (Accu-Chek) 1 02 XX ; Start 09/01/17 at 02:00 Insulin Aspart (Novolog Insulin Pen) NOVOLOG *MODERATE* ALGORI... Q4 SC Last administered on 09/01/17 13:26; Admin Dose 4 UNIT; Start 08/31/17 at 17:00 TRACY MENDOZA MD Sep 01, 2017 13:46
--- NOTE | 2017-09-01 16:48 | CONS ---
Date/Time of Note Date/Time of Note DATE: 09/01/17 TIME: 16:46 Consult Date/Type/Reason Admit Date/Time Aug 24, 2017 at 07:05 Initial Consult Date 08/27/17 Type of Consultation: ID Ordering Provider: MIKE LUONG MD Objective Vital Signs Date Time Temp Pulse Resp B/P Pulse Ox O2 Delivery O2 Flow Rate FiO2 09/01/17 16:00 98.5 70 26 142/81 100 Mechanical Ventilator 09/01/17 10:57 100 Intake and Output 08/31/17 08/31/17 09/01/17 15:00 23:00 07:00 Intake Total 820 ml 975 ml 528 ml Output Total 1465 ml 707 ml 534 ml Balance -645 ml 268 ml -6 ml Results/Medications Result Diagram: 08/31/17 0515 09/01/17 0816 Results 24 hrs Laboratory Tests Test 08/31/17 17:10 08/31/17 21:01 09/01/17 01:23 09/01/17 02:44 Bedside Glucose 181 189 188 201 Test 09/01/17 05:55 09/01/17 06:02 09/01/17 08:08 09/01/17 08:16 Sodium Level 140 142 Potassium Level 3.5 4.3 Chloride Level 102 103 Carbon Dioxide Level 29 31 Anion Gap 13 12 Blood Urea Nitrogen 27 H 30 H Creatinine 0.75 0.73 Glucose Level 546 #*H 223 #H Calcium Level 7.3 L 8.6 Phosphorus Level 3.4 Magnesium Level 1.8 Bedside Glucose 185 209 Test 09/01/17 13:23 Bedside Glucose 190 Medications Current Medications Flumazenil (Romazicon) 0.2 mg Q1M PRN IV BENZODIAZEPINE OVERDOSE; Start at 07:30 Naloxone HCl (Narcan) 0.4 mg Q3M PRN IV DECREASED REPIRATORY RATE; Start at 07:30 Ondansetron HCl (Zofran Inj) 4 mg Q6H PRN IV NAUSEA AND/OR VOMITING; Start 08/24/17 at 07:30 Nitroglycerin (Nitroglycerin (Sl Tab) 0.4 Mg) 1 tab Q5M PRN SL CHEST PAIN; Start 08/24/17 at 07:30 Acetaminophen (Tylenol Liquid) 650 mg Q6H PRN PO PAIN LEVEL 1-3 OR FEVER; Start 08/24/17 at 07:30 Acetaminophen (Tylenol Tab) 650 mg Q6H PRN PO PAIN LEVEL 1-3 OR FEVER Last administered on 08/29/17 14:02; Admin Dose 650 MG; Start 08/24/17 at 07:30 Acetaminophen (Tylenol Supp) 650 mg Q4H PRN OK PAIN LEVEL 1-3 OR TEMP > 37C Last administered on 08/31/17 02:49; Admin Dose 650 MG; Start 08/24/17 at 07: 30 Ibuprofen (Motrin) 600 mg Q6H PRN PO PAIN LEVEL 1-3 OR FEVER; Start 08/24/17 at 07:30 Acetaminophen/ Hydrocodone Bitart ([place] (5/325)) 1 tab Q6H PRN PO PAIN LEVEL 4 -6; Start 08/24/17 at 07:30 Morphine Sulfate (morphine) 2 mg Q4H PRN IV PAIN LEVEL 7-10 Last administered on 08/27/17 03:38; Admin Dose 2 MG; Start 08/24/17 at 07:30 Lorazepam (Ativan) 1 mg Q2H PRN IV ANXIETY Last administered on 08/27/17 04:00 ; Admin Dose 1 MG; Start 08/24/17 at 07:30 Docusate Sodium (Colace) 100 mg Q12H PRN PO CONSTIPATION; Start 08/24/17 at 07: 30 Magnesium Hydroxide (Milk Of Mag) 30 ml DAILY PRN PO CONSTIPATION; Start at 07:30 Bisacodyl (Dulcolax) 5 mg DAILY PRN PO CONSTIPATION; Start 08/24/17 at 07:30 Bisacodyl (Dulcolax Supp) 10 mg DAILY PRN OK CONSTIPATION; Start 08/24/17 at 07 :30 Sodium Biphosphate/ Sodium Phosphate (Fleet Enema) 133 ml DAILY PRN OK CONSTIPATION; Start 08/24/17 at 07:30 Enoxaparin Sodium (Lovenox) 40 mg DAILY SC Last administered on 09/01/17 08: 15; Admin Dose 40 MG; Start 08/24/17 at 09:00 Hydralazine HCl (Apresoline) 10 mg Q6H PRN IV ELEVATED BLOOD PRESSURE Last administered on 08/29/17 14:35; Admin Dose 10 MG; Start 08/24/17 at 15:30 Meperidine HCl (Demerol) 12.5 mg Q4H PRN IV POST OPERATIVE SHIVERING; Start at 18:30 Meperidine HCl (Demerol) 25 mg Q4H PRN IV POST OPERATIVE SHIVERING; Start 08/24 at 18:30 Eye Lubricant (Akwa Oint) 1 applic Q6 BOTH EYES Last administered on 11:38; Admin Dose 1 APPLIC; Start 08/24/17 at 18:30 Eye Lubricant 2 drop 2 drop Q6 BOTH EYES Last administered on 09/01/17 11:37 ; Admin Dose 2 DROP; Start 08/24/17 at 18:30 Levetiracetam 100 ml @ 400 mls/hr Q12 IVPB Last administered on 09/01/17 08: 21; Admin Dose 400 MLS/HR; Start 08/25/17 at 10:00 Norepinephrine 16 mg/Dextrose 500 ml @ 1.87 mls/hr TITRATE IV Last administered on 08/26/17 14:32; Admin Dose 22.5 MLS/HR; Start 08/26/17 at 13:30 Fentanyl (Sublimaze) 100 ml @ 2.5 mls/hr TITRATE IV Last administered on 09/01 08:27; Admin Dose 10 MLS/HR; Start 08/27/17 at 09:30 Insulin Glargine (Lantus) 15 unit DAILY@08 SC Last administered on 09/01/17 08:11; Admin Dose 15 UNIT; Start 08/27/17 at 13:00 Miscellaneous Information 1 ea NOTE XX ; Start 08/28/17 at 11:30 Glucose (Glutose) 15 gm Q15M PRN PO DECREASED GLUCOSE; Start 08/28/17 at 11:30 Glucose (Glutose) 22.5 gm Q15M PRN PO DECREASED GLUCOSE; Start 08/28/17 at 11: 30 Dextrose (D50w Syringe) 25 ml Q15M PRN IV DECREASED GLUCOSE; Start 08/28/17 at 11:30 Dextrose (D50w Syringe) 50 ml Q15M PRN IV DECREASED GLUCOSE; Start 08/28/17 at 11:30 Glucagon (Glucagen) 1 mg Q15M PRN IM DECREASED GLUCOSE; Start 08/28/17 at 11:30 Glucose (Glutose) 15 gm Q15M PRN BUCCAL DECREASED GLUCOSE; Start 08/28/17 at 11 :30 IV Flush (NS 10 ml) 10 ml PRN PRN IV IV PROTOCOL; Start 08/28/17 at 14:00 Miscellaneous Information ([facility]) This patient almanza... PRN PRN XX WOUND CARE; Start 08/28/17 at 23:00 Methylprednisolone Sodium Succinate (Solu-Medrol) 60 mg Q6 IV Last administered on 09/01/17 11:35; Admin Dose 60 MG; Start 08/29/17 at 12:00 Furosemide (Lasix) 40 mg DAILY IV Last administered on 09/01/17 08:19; Admin Dose 40 MG; Start 08/30/17 at 09:00 Metoprolol Tartrate 25 mg 25 mg BID PO ; Start 08/29/17 at 21:00; Status Future Hold Levofloxacin/ Dextrose 100 ml @ 100 mls/hr Q24H IVPB Last administered on 12:05; Admin Dose 100 MLS/HR; Start 08/29/17 at 13:00 Midazolam HCl 50 ml @ 1 mls/hr TITRATE IV Last administered on 09/01/17 11:33 ; Admin Dose 7 MLS/HR; Start 08/29/17 at 16:00 Vancomycin HCl 1.5 gm/Sodium Chloride 250 ml @ 83.333 mls/ hr Q8 IVPB Last administered on 09/01/17 14:02; Admin Dose 83.333 MLS/HR; Start 08/30/17 at 14 :00 Meropenem/Sodium Chloride 50 ml @ 100 mls/hr Q8 IVPB Last administered on 13:27; Admin Dose 100 MLS/HR; Start 08/30/17 at 22:00 Total Parenteral Nutrition (Tpn) 1,000 ml @ 50 mls/hr Q20H IV Last administered on 09/01/17 08:39; Admin Dose 50 MLS/HR; Start 08/30/17 at 16:00 Famotidine (Pepcid Iv) 20 mg BID IV Last administered on 09/01/17 08:21; Admin Dose 20 MG; Start 08/31/17 at 09:00 Levothyroxine Sodium (Synthroid Iv) 25 mcg DAILY@06 IV Last administered on 06:05; Admin Dose 25 MCG; Start 08/31/17 at 06:00 Aspirin (Aspirin) 81 mg DAILY OK ; Start 08/31/17 at 09:00; Status Future Hold Diagnostic Test (Pha) (Accu-Chek) 1 02 XX ; Start 09/01/17 at 02:00 Insulin Aspart (Novolog Insulin Pen) NOVOLOG *MODERATE* ALGORI... Q4 SC Last administered on 09/01/17 13:26; Admin Dose 4 UNIT; Start 08/31/17 at 17:00 Assessment/Plan Chief Complaint/Hosp Course SUBJECTIVE: The patient remains intubated and sedated. On high PEEP of 16 and FiO2 of 100. Afebrile. Looks comfortable MICROBIOLOGY: Cultures negative. ANTIMICROBIALS: 1. Vancomycin. 2. Merrem. 3. Levaquin. INDWELLINGS: Endotracheal tube, NG tube, Fagan catheter, PICC line. PHYSICAL EXAMINATION: GENERAL: Obese, well-developed, middle-aged, man who is in no distress. HEENT: Head atraumatic, normocephalic. Sclerae anicteric. Buccal mucosa dry. NECK: Supple. CHEST: Rise symmetrical. Breath sounds diminished to bases. HEART: S1, S2. ABDOMEN: Soft. Bowel tones hypoactive. EXTREMITIES: With bilateral edema. ASSESSMENT: 1. Sepsis, status post shock with ongoing fevers. 2. Status post cardiopulmonary arrest. 3. Aspiration pneumonia. 4. Acute respiratory failure. 5. Seizure disorder. 6. Coagulase-negative Staphylococcus bacteremia on admission consistent with contaminant. 7. Diabetes. 8. Polycythemia. PLAN: The patient remains hemodynamically stable. Covered with broad-spectrum antibiotics, also on steroids, fevers resolving. We will continue him on current regimen for now DW staff Problems: BEAK WATKINS NP Sep 01, 2017 16:48
--- NOTE | 2017-09-01 22:04 | NEURPT ---
DATE: 09/01/2017 EEG done today using 10-20 international electrode system with photic stimulation. Bilateral occipital hemispheres showed delta waves and some ____ in between. Photic stimulation done, ____. IMPRESSION: This is abnormal electroencephalogram, showed bilateral pleds on the EEG consistent with underlying severe anoxic encephalopathy. I will increase the Keppra to 750 mg twice a day. Thank you for asking me to see the patient with you. Dictated By: JULY KOLB/YESI Conf#: [id number] DID#: [id number] MTDD
[2017-09-02] VITALS (38 sets, daily range): BP systolic 119–165; BP diastolic 65–123; PULSE 68–93; RESP 18–35
[2017-09-02] MEDS: IPRATROPIUM (HFA) 12.9 GM INHALER INH SCH ×6 (01:09→21:03)
[2017-09-02] MEDS: ALBUTEROL HFA 8 GM INHALER INH SCH ×6 (01:09→21:06)
[2017-09-02] MEDS: ACCU-CHEK XX SCH (02:39)
[2017-09-02] MEDS: INSULIN ASPART [NOVOLOG] 3 ML PEN SC SCH ×6 (02:42→21:05)
[2017-09-02] MEDS: MIDAZOLAM (DRIP) 50 mg/50 mL 50 ML IV SCH ×3 (02:58→18:15)
[2017-09-02] MEDS: TPN 1,000 ML IV SCH (04:18)
[2017-09-02] MEDS: MEROPENEM 1 GM/50ML(PMX) 50 ML IVPB SCH ×3 (05:22→21:57)
[2017-09-02] MEDS: VANCOMYCIN 1.5 GM in SOD CHLORIDE 0.9% 250 ML IVPB SCH ×2 (05:24→13:47)
[2017-09-02] MEDS: LEVOTHYROXINE 100 MCG VIAL IV SCH (05:24)
[2017-09-02] MEDS: METHYLPREDNISOLONE 125 MG INJ IV SCH ×3 (05:25→17:27)
[2017-09-02] MEDS: OCULAR LUBRICANT 3.5 GM OPH OINT BOTH EYES SCH ×3 (05:25→17:27)
[2017-09-02] MEDS: ARTIFICIAL TEARS 15 ML OPH BOTH EYES SCH ×3 (05:25→17:27)
[2017-09-02] MEDS: FENTAnyl (DRIP) 1000 mcg/100mL 100 ML IV SCH ×3 (06:00→22:53)
[2017-09-02 06:21] LABS: ABNORMAL IP MESSAGE 1; BASOPHILS % 0.1 % (0.0-2.0); HEMATOCRIT 54.9 % (42.0-52.0); HEMOGLOBIN 16.2 g/dl (14.0-18.0); LYMPHOCYTES # 0.3 10^3/ul (0.8-2.9); LYMPHOCYTES % 2.3 % (15.0-51.0); MEAN CORPUSCULAR HGB CONC 29.5 g/dl (32.0-37.0); MEAN CORPUSCULAR VOLUME 91.3 fl (82.0-101.0); MEAN PLATELET VOLUME 9.7 fl (7.4-10.4); MONOCYTE # 0.6 10^3/ul (0.3-0.9); NEUTROPHIL # 13.2 10^3/ul (1.6-7.5); PLATELET COUNT 248 10^3/UL (140-415); POSITIVE DIFF @See below; RED BLOOD COUNT 6.01 10^6/ul (4.70-6.10); RED CELL DISTRIBUTION WIDTH 18.3 % (11.5-14.5); WHITE BLOOD COUNT 14.2 10^3/ul (4.8-10.8)
[2017-09-02 06:48] LABS: CALCIUM 9.4 mg/dl (8.4-10.2); CREATININE 0.75 mg/dl (0.61-1.24)
[2017-09-02] MEDS: INSULIN GLARGINE [LANtus] 3 ML PEN SC SCH (09:06)
[2017-09-02] MEDS: FUROSEMIDE 40 MG INJ IV SCH (09:09)
[2017-09-02] MEDS: FAMOTIDINE 20 MG INJ IV SCH ×2 (09:09→21:01)
[2017-09-02] MEDS: LEVETIRACETAM 500 MG (PMX) 100 ML IVPB SCH ×2 (09:10→21:00)
[2017-09-02] MEDS: ENOXAPARIN 40 MG/0.4 ML SYG SC SCH (09:11)
--- NOTE | 2017-09-02 10:16 | CONS ---
Date/Time of Note Date/Time of Note DATE: 09/02/17 TIME: 10:16 Consult Date/Type/Reason Admit Date/Time Aug 24, 2017 at 07:05 Initial Consult Date 08/27/17 Type of Consultation: Pulmonary Ordering Provider: MIKE LUONG MD Subjective No changes. Remains unresponsive on mechanical ventilation. Objective Vital Signs Date Time Temp Pulse Resp B/P Pulse Ox O2 Delivery O2 Flow Rate FiO2 09/02/17 08:00 77 09/02/17 08:00 90 09/02/17 07:00 99.6 26 149/95 100 Mechanical Ventilator Intake and Output 09/01/17 09/01/17 09/02/17 15:00 23:00 07:00 Intake Total 1316 ml 686 ml 893 ml Output Total 1844 ml 518 ml 529 ml Balance -528 ml 168 ml 364 ml Exam PHYSICAL EXAMINATION: GENERAL: Well-nourished well-developed gentleman comfortable at rest on mechanical ventilation. VITAL SIGNS: NECK: Supple, no JVD or lymphadenopathy. CARDIAC: S1, S2, no added sounds or murmurs. CHEST: Diminished air entry bilaterally. ABDOMEN: Soft, nontender. No guarding or rebound. EXTREMITIES: No cyanosis, clubbing, 1+ edema. NEUROLOGIC: Vegetative state. Results/Medications Result Diagram: 09/02/17 0500 09/02/17 0500 Results 24 hrs Laboratory Tests Test 09/01/17 13:23 09/01/17 16:51 09/01/17 20:33 09/02/17 02:39 Bedside Glucose 190 185 192 211 Test 09/02/17 04:49 09/02/17 05:00 09/02/17 09:02 Bedside Glucose 206 213 White Blood Count 14.2 #H Red Blood Count 6.01 Hemoglobin 16.2 Hematocrit 54.9 H Mean Corpuscular Volume 91.3 Mean Corpuscular Hemoglobin 27.0 L Mean Corpuscular Hemoglobin Concent 29.5 L Red Cell Distribution Width 18.3 H Platelet Count 248 Mean Platelet Volume 9.7 Neutrophils % 93.0 H Lymphocytes % 2.3 L Monocytes % 4.0 Eosinophils % 0.0 Basophils % 0.1 Nucleated Red Blood Cells % 0.0 Neutrophils # 13.2 H Lymphocytes # 0.3 L Monocytes # 0.6 Eosinophils # 0.0 Basophils # 0.0 Nucleated Red Blood Cells # 0.0 Sodium Level 145 H Potassium Level 4.0 Chloride Level 103 Carbon Dioxide Level 32 H Anion Gap 14 Blood Urea Nitrogen 34 H Creatinine 0.75 Glucose Level 223 H Calcium Level 9.4 Medications Current Medications Flumazenil (Romazicon) 0.2 mg Q1M PRN IV BENZODIAZEPINE OVERDOSE; Start at 07:30 Naloxone HCl (Narcan) 0.4 mg Q3M PRN IV DECREASED REPIRATORY RATE; Start at 07:30 Ondansetron HCl (Zofran Inj) 4 mg Q6H PRN IV NAUSEA AND/OR VOMITING; Start 08/24/17 at 07:30 Nitroglycerin (Nitroglycerin (Sl Tab) 0.4 Mg) 1 tab Q5M PRN SL CHEST PAIN; Start 08/24/17 at 07:30 Acetaminophen (Tylenol Liquid) 650 mg Q6H PRN PO PAIN LEVEL 1-3 OR FEVER; Start 08/24/17 at 07:30 Acetaminophen (Tylenol Tab) 650 mg Q6H PRN PO PAIN LEVEL 1-3 OR FEVER Last administered on 08/29/17 14:02; Admin Dose 650 MG; Start 08/24/17 at 07:30 Acetaminophen (Tylenol Supp) 650 mg Q4H PRN CO PAIN LEVEL 1-3 OR TEMP > 37C Last administered on 08/31/17 02:49; Admin Dose 650 MG; Start 08/24/17 at 07: 30 Ibuprofen (Motrin) 600 mg Q6H PRN PO PAIN LEVEL 1-3 OR FEVER; Start 08/24/17 at 07:30 Acetaminophen/ Hydrocodone Bitart ([place] (5/325)) 1 tab Q6H PRN PO PAIN LEVEL 4 -6; Start 08/24/17 at 07:30 Morphine Sulfate (morphine) 2 mg Q4H PRN IV PAIN LEVEL 7-10 Last administered on 08/27/17 03:38; Admin Dose 2 MG; Start 08/24/17 at 07:30 Lorazepam (Ativan) 1 mg Q2H PRN IV ANXIETY Last administered on 08/27/17 04:00 ; Admin Dose 1 MG; Start 08/24/17 at 07:30 Docusate Sodium (Colace) 100 mg Q12H PRN PO CONSTIPATION; Start 08/24/17 at 07: 30 Magnesium Hydroxide (Milk Of Mag) 30 ml DAILY PRN PO CONSTIPATION; Start at 07:30 Bisacodyl (Dulcolax) 5 mg DAILY PRN PO CONSTIPATION; Start 08/24/17 at 07:30 Bisacodyl (Dulcolax Supp) 10 mg DAILY PRN CO CONSTIPATION; Start 08/24/17 at 07 :30 Sodium Biphosphate/ Sodium Phosphate (Fleet Enema) 133 ml DAILY PRN CO CONSTIPATION; Start 08/24/17 at 07:30 Enoxaparin Sodium (Lovenox) 40 mg DAILY SC Last administered on 09/02/17 09: 11; Admin Dose 40 MG; Start 08/24/17 at 09:00 Hydralazine HCl (Apresoline) 10 mg Q6H PRN IV ELEVATED BLOOD PRESSURE Last administered on 08/29/17 14:35; Admin Dose 10 MG; Start 08/24/17 at 15:30 Meperidine HCl (Demerol) 12.5 mg Q4H PRN IV POST OPERATIVE SHIVERING; Start at 18:30 Meperidine HCl (Demerol) 25 mg Q4H PRN IV POST OPERATIVE SHIVERING; Start 08/24 at 18:30 Eye Lubricant (Akwa Oint) 1 applic Q6 BOTH EYES Last administered on 05:25; Admin Dose 1 APPLIC; Start 08/24/17 at 18:30 Eye Lubricant 2 drop 2 drop Q6 BOTH EYES Last administered on 09/02/17 05:25 ; Admin Dose 2 DROP; Start 08/24/17 at 18:30 Levetiracetam 100 ml @ 400 mls/hr Q12 IVPB Last administered on 09/02/17 09: 10; Admin Dose 400 MLS/HR; Start 08/25/17 at 10:00 Norepinephrine 16 mg/Dextrose 500 ml @ 1.87 mls/hr TITRATE IV Last administered on 08/26/17 14:32; Admin Dose 22.5 MLS/HR; Start 08/26/17 at 13:30 Fentanyl (Sublimaze) 100 ml @ 2.5 mls/hr TITRATE IV Last administered on 09/02 06:00; Admin Dose 10 MLS/HR; Start 08/27/17 at 09:30 Insulin Glargine (Lantus) 15 unit DAILY@08 SC Last administered on 09/02/17 09:06; Admin Dose 15 UNIT; Start 08/27/17 at 13:00 Miscellaneous Information 1 ea NOTE XX ; Start 08/28/17 at 11:30 Glucose (Glutose) 15 gm Q15M PRN PO DECREASED GLUCOSE; Start 08/28/17 at 11:30 Glucose (Glutose) 22.5 gm Q15M PRN PO DECREASED GLUCOSE; Start 08/28/17 at 11: 30 Dextrose (D50w Syringe) 25 ml Q15M PRN IV DECREASED GLUCOSE; Start 08/28/17 at 11:30 Dextrose (D50w Syringe) 50 ml Q15M PRN IV DECREASED GLUCOSE; Start 08/28/17 at 11:30 Glucagon (Glucagen) 1 mg Q15M PRN IM DECREASED GLUCOSE; Start 08/28/17 at 11:30 Glucose (Glutose) 15 gm Q15M PRN BUCCAL DECREASED GLUCOSE; Start 08/28/17 at 11 :30 IV Flush (NS 10 ml) 10 ml PRN PRN IV IV PROTOCOL; Start 08/28/17 at 14:00 Miscellaneous Information (Pending [facility] Order For Wound Care) This patient almanza... PRN PRN XX WOUND CARE; Start 08/28/17 at 23:00 Methylprednisolone Sodium Succinate (Solu-Medrol) 60 mg Q6 IV Last administered on 09/02/17 05:25; Admin Dose 60 MG; Start 08/29/17 at 12:00 Furosemide (Lasix) 40 mg DAILY IV Last administered on 09/02/17 09:09; Admin Dose 40 MG; Start 08/30/17 at 09:00 Metoprolol Tartrate 25 mg 25 mg BID PO ; Start 08/29/17 at 21:00; Status Future Hold Levofloxacin/ Dextrose 100 ml @ 100 mls/hr Q24H IVPB Last administered on 12:05; Admin Dose 100 MLS/HR; Start 08/29/17 at 13:00 Midazolam HCl 50 ml @ 1 mls/hr TITRATE IV Last administered on 09/02/17 02:58 ; Admin Dose 7 MLS/HR; Start 08/29/17 at 16:00 Vancomycin HCl 1.5 gm/Sodium Chloride 250 ml @ 83.333 mls/ hr Q8 IVPB Last administered on 09/02/17 05:24; Admin Dose 83.333 MLS/HR; Start 08/30/17 at 14 :00 Meropenem/Sodium Chloride 50 ml @ 100 mls/hr Q8 IVPB Last administered on 05:22; Admin Dose 100 MLS/HR; Start 08/30/17 at 22:00 Total Parenteral Nutrition (Tpn) 1,000 ml @ 50 mls/hr Q20H IV Last administered on 09/02/17 04:18; Admin Dose 50 MLS/HR; Start 08/30/17 at 16:00 Famotidine (Pepcid Iv) 20 mg BID IV Last administered on 09/02/17 09:09; Admin Dose 20 MG; Start 08/31/17 at 09:00 Levothyroxine Sodium (Synthroid Iv) 25 mcg DAILY@06 IV Last administered on 05:24; Admin Dose 25 MCG; Start 08/31/17 at 06:00 Aspirin (Aspirin) 81 mg DAILY CO ; Start 08/31/17 at 09:00; Status Future Hold Diagnostic Test (Pha) (Accu-Chek) 1 ea 02 XX Last administered on 09/02/17 02 :39; Admin Dose 1 EA; Start 09/01/17 at 02:00 Insulin Aspart (Novolog Insulin Pen) NOVOLOG *MODERATE* ALGORI... Q4 SC Last administered on 09/02/17 09:05; Admin Dose 4 UNIT; Start 08/31/17 at 17:00 Assessment/Plan Chief Complaint/Hosp Course IMP: 1. s/p Cardiopulmonary arrest--likely due to aspiration and central airway obstruction 2. Seizure Disorder 3. Gram + bacteremia--likely contaminant 4. Possible anoxic brain injury 5. CAP vs. aspiration, no evidence of pulmonary embolism on CT angiogram 6. Morbid obesity 7. DM RECS: 1. Continue mechanical ventilation for weaning, decrease FiO2 and PEEP as tolerated. Currently on volume control ventilation. 2. Anti-epileptic Rx and propofol gtt 3. Nasogastric tube feeding as tolerated 4. Abx 5. F/U Cx's 6. DVT and GI prophylaxis 7. EEG and neuro evaluation. 8. Empiric steroid trial. 35 min cc time Palliative care consult. Consider bioethics consult. Prognosis very poor. Problems: JULIANA WASHINGTON MD, [facility] Sep 02, 2017 10:16
--- NOTE | 2017-09-02 11:26 | PN ---
AMALIA LUKE 09/02/17 1126: Date/Time of Note Date/Time of Note DATE: 09/02/17 TIME: 11:25 Assessment/Plan VTE Prophylaxis VTE Prophylaxis Intervention: SCD's Lines/Catheters IV Catheter Type (from Nrs): PICC Line Central line still needed: Yes Urinary Cath still in place: Yes Reason Cath still needed: urinary retention Assessment/Plan Chief Complaint/Hosp Course 1. s/p cardiac arrest 2. Sepsis with Gram + bacteremia 3. Morbid obesity 4. Hypertension 5. history of flu like sickness before admission 6. Anemia 7. Seizure Disorder 8. anoxic brain injury, evident on EEG. 7. Underlying diabetes mellitus. 8. Decreased Urinary output Problems: Assessment/Plan 1. dr Marroquin is on case 2. Spoke to Maria Luz, pt girlfriend she is not ready for changing the code status 3. family conference on Sunday Subjective 24 Hr Interval Summary Subjective hx not possible: pt non-verbal, pt critical Exam/Review of Systems Vital Signs Vitals Vital Signs Date Time Temp Pulse Resp B/P Pulse Ox O2 Delivery O2 Flow Rate FiO2 09/02/17 10:00 80 26 157/100 99 Mechanical Ventilator 09/02/17 08:00 90 09/02/17 07:00 99.6 Intake and Output 09/01/17 09/01/17 09/02/17 14:59 22:59 06:59 Intake Total 1066 ml 886 ml 943 ml Output Total 1810 ml 537 ml 520 ml Balance -744 ml 349 ml 423 ml Exam ENMT: nl external ears & nose Neck: supple Respiratory: diminished breath sounds Cardiovascular: regular rate and rhythm Gastrointestinal: soft Results Result Diagram: 09/02/17 0500 09/02/17 0500 Results 24 hrs Laboratory Tests Test 09/01/17 13:23 09/01/17 16:51 09/01/17 20:33 09/02/17 02:39 Bedside Glucose 190 185 192 211 Test 09/02/17 04:49 09/02/17 05:00 09/02/17 09:02 Bedside Glucose 206 213 White Blood Count 14.2 #H Red Blood Count 6.01 Hemoglobin 16.2 Hematocrit 54.9 H Mean Corpuscular Volume 91.3 Mean Corpuscular Hemoglobin 27.0 L Mean Corpuscular Hemoglobin Concent 29.5 L Red Cell Distribution Width 18.3 H Platelet Count 248 Mean Platelet Volume 9.7 Neutrophils % 93.0 H Lymphocytes % 2.3 L Monocytes % 4.0 Eosinophils % 0.0 Basophils % 0.1 Nucleated Red Blood Cells % 0.0 Neutrophils # 13.2 H Lymphocytes # 0.3 L Monocytes # 0.6 Eosinophils # 0.0 Basophils # 0.0 Nucleated Red Blood Cells # 0.0 Sodium Level 145 H Potassium Level 4.0 Chloride Level 103 Carbon Dioxide Level 32 H Anion Gap 14 Blood Urea Nitrogen 34 H Creatinine 0.75 Glucose Level 223 H Calcium Level 9.4 Medications Medications Current Medications Flumazenil (Romazicon) 0.2 mg Q1M PRN IV BENZODIAZEPINE OVERDOSE; Start at 07:30 Naloxone HCl (Narcan) 0.4 mg Q3M PRN IV DECREASED REPIRATORY RATE; Start at 07:30 Ondansetron HCl (Zofran Inj) 4 mg Q6H PRN IV NAUSEA AND/OR VOMITING; Start 08/24/17 at 07:30 Nitroglycerin (Nitroglycerin (Sl Tab) 0.4 Mg) 1 tab Q5M PRN SL CHEST PAIN; Start 08/24/17 at 07:30 Acetaminophen (Tylenol Liquid) 650 mg Q6H PRN PO PAIN LEVEL 1-3 OR FEVER; Start 08/24/17 at 07:30 Acetaminophen (Tylenol Tab) 650 mg Q6H PRN PO PAIN LEVEL 1-3 OR FEVER Last administered on 08/29/17 14:02; Admin Dose 650 MG; Start 08/24/17 at 07:30 Acetaminophen (Tylenol Supp) 650 mg Q4H PRN [place] PAIN LEVEL 1-3 OR TEMP > 37C Last administered on 08/31/17 02:49; Admin Dose 650 MG; Start 08/24/17 at 07: 30 Ibuprofen (Motrin) 600 mg Q6H PRN PO PAIN LEVEL 1-3 OR FEVER; Start 08/24/17 at 07:30 Acetaminophen/ Hydrocodone Bitart ([place] (5/325)) 1 tab Q6H PRN PO PAIN LEVEL 4 -6; Start 08/24/17 at 07:30 Morphine Sulfate (morphine) 2 mg Q4H PRN IV PAIN LEVEL 7-10 Last administered on 08/27/17 03:38; Admin Dose 2 MG; Start 08/24/17 at 07:30 Lorazepam (Ativan) 1 mg Q2H PRN IV ANXIETY Last administered on 08/27/17 04:00 ; Admin Dose 1 MG; Start 08/24/17 at 07:30 Docusate Sodium (Colace) 100 mg Q12H PRN PO CONSTIPATION; Start 08/24/17 at 07: 30 Magnesium Hydroxide (Milk Of Mag) 30 ml DAILY PRN PO CONSTIPATION; Start at 07:30 Bisacodyl (Dulcolax) 5 mg DAILY PRN PO CONSTIPATION; Start 08/24/17 at 07:30 Bisacodyl (Dulcolax Supp) 10 mg DAILY PRN [place] CONSTIPATION; Start 08/24/17 at 07 :30 Sodium Biphosphate/ Sodium Phosphate (Fleet Enema) 133 ml DAILY PRN [place] CONSTIPATION; Start 08/24/17 at 07:30 Enoxaparin Sodium (Lovenox) 40 mg DAILY SC Last administered on 09/02/17 09: 11; Admin Dose 40 MG; Start 08/24/17 at 09:00 Hydralazine HCl (Apresoline) 10 mg Q6H PRN IV ELEVATED BLOOD PRESSURE Last administered on 08/29/17 14:35; Admin Dose 10 MG; Start 08/24/17 at 15:30 Meperidine HCl (Demerol) 12.5 mg Q4H PRN IV POST OPERATIVE SHIVERING; Start at 18:30 Meperidine HCl (Demerol) 25 mg Q4H PRN IV POST OPERATIVE SHIVERING; Start 08/24 at 18:30 Eye Lubricant (Akwa Oint) 1 applic Q6 BOTH EYES Last administered on 05:25; Admin Dose 1 APPLIC; Start 08/24/17 at 18:30 Eye Lubricant 2 drop 2 drop Q6 BOTH EYES Last administered on 09/02/17 05:25 ; Admin Dose 2 DROP; Start 08/24/17 at 18:30 Levetiracetam 100 ml @ 400 mls/hr Q12 IVPB Last administered on 09/02/17 09: 10; Admin Dose 400 MLS/HR; Start 08/25/17 at 10:00 Norepinephrine 16 mg/Dextrose 500 ml @ 1.87 mls/hr TITRATE IV Last administered on 08/26/17 14:32; Admin Dose 22.5 MLS/HR; Start 08/26/17 at 13:30 Fentanyl (Sublimaze) 100 ml @ 2.5 mls/hr TITRATE IV Last administered on 09/02 06:00; Admin Dose 10 MLS/HR; Start 08/27/17 at 09:30 Insulin Glargine (Lantus) 15 unit DAILY@08 SC Last administered on 09/02/17 09:06; Admin Dose 15 UNIT; Start 08/27/17 at 13:00 Miscellaneous Information 1 ea NOTE XX ; Start 08/28/17 at 11:30 Glucose (Glutose) 15 gm Q15M PRN PO DECREASED GLUCOSE; Start 08/28/17 at 11:30 Glucose (Glutose) 22.5 gm Q15M PRN PO DECREASED GLUCOSE; Start 08/28/17 at 11: 30 Dextrose (D50w Syringe) 25 ml Q15M PRN IV DECREASED GLUCOSE; Start 08/28/17 at 11:30 Dextrose (D50w Syringe) 50 ml Q15M PRN IV DECREASED GLUCOSE; Start 08/28/17 at 11:30 Glucagon (Glucagen) 1 mg Q15M PRN IM DECREASED GLUCOSE; Start 08/28/17 at 11:30 Glucose (Glutose) 15 gm Q15M PRN BUCCAL DECREASED GLUCOSE; Start 08/28/17 at 11 :30 IV Flush (NS 10 ml) 10 ml PRN PRN IV IV PROTOCOL; Start 08/28/17 at 14:00 Miscellaneous Information (Pending [facility] Order For Wound Care) This patient almanza... PRN PRN XX WOUND CARE; Start 08/28/17 at 23:00 Methylprednisolone Sodium Succinate (Solu-Medrol) 60 mg Q6 IV Last administered on 09/02/17 05:25; Admin Dose 60 MG; Start 08/29/17 at 12:00 Furosemide (Lasix) 40 mg DAILY IV Last administered on 09/02/17 09:09; Admin Dose 40 MG; Start 08/30/17 at 09:00 Metoprolol Tartrate 25 mg 25 mg BID PO ; Start 08/29/17 at 21:00; Status Future Hold Levofloxacin/ Dextrose 100 ml @ 100 mls/hr Q24H IVPB Last administered on 12:05; Admin Dose 100 MLS/HR; Start 08/29/17 at 13:00 Midazolam HCl 50 ml @ 1 mls/hr TITRATE IV Last administered on 09/02/17 10:38 ; Admin Dose 7 MLS/HR; Start 08/29/17 at 16:00 Vancomycin HCl 1.5 gm/Sodium Chloride 250 ml @ 83.333 mls/ hr Q8 IVPB Last administered on 09/02/17 05:24; Admin Dose 83.333 MLS/HR; Start 08/30/17 at 14 :00 Meropenem/Sodium Chloride 50 ml @ 100 mls/hr Q8 IVPB Last administered on 05:22; Admin Dose 100 MLS/HR; Start 08/30/17 at 22:00 Total Parenteral Nutrition (Tpn) 1,000 ml @ 50 mls/hr Q20H IV Last administered on 09/02/17 04:18; Admin Dose 50 MLS/HR; Start 08/30/17 at 16:00 Famotidine (Pepcid Iv) 20 mg BID IV Last administered on 09/02/17 09:09; Admin Dose 20 MG; Start 08/31/17 at 09:00 Levothyroxine Sodium (Synthroid Iv) 25 mcg DAILY@06 IV Last administered on 05:24; Admin Dose 25 MCG; Start 08/31/17 at 06:00 Aspirin (Aspirin) 81 mg DAILY [place] ; Start 08/31/17 at 09:00; Status Future Hold Diagnostic Test (Pha) (Accu-Chek) 1 ea 02 XX Last administered on 09/02/17 02 :39; Admin Dose 1 EA; Start 09/01/17 at 02:00 Insulin Aspart (Novolog Insulin Pen) NOVOLOG *MODERATE* ALGORI... Q4 SC Last administered on 09/02/17 09:05; Admin Dose 4 UNIT; Start 08/31/17 at 17:00 Miscellaneous Information (*Rx Drug Level Order Reminder*) VANCO TROUGH @ 2, 100 ON ... ONCE ONCE XX ; Start 09/02/17 at 21:00; Stop 09/02/17 at 21:01 ELMER RAE MD 09/02/17 1444: Assessment/Plan Assessment/Plan Assessment/Plan EEG +Anoxic encepaholopathy, increased keppra per Neurology steroid challenge per pulmonary Family conference tmw, would appreciate if all consultants present especially Neurology Exam/Review of Systems Results Result Diagram: 09/02/17 0500 09/02/17 0500 AMALIA LUKE Sep 02, 2017 11:26 ELMER RAE MD Sep 02, 2017 14:44
[2017-09-02] MEDS: LEVOFLOXACIN 500MG/D5W (PMX) 100 ML IVPB SCH (12:40)
--- NOTE | 2017-09-02 13:37 | CONS ---
Date/Time of Note Date/Time of Note DATE: 09/02/17 TIME: 13:37 Assessment/Plan Assessment/Plan Additional Assessment/Plan Critically ill - will follow with ICU team. Family conference Sunday. Consultation Date/Type/Reason Admit Date/Time Aug 24, 2017 at 07:05 Initial Consult Date 08/27/17 Type of Consultation: Pulmonary Referring Provider: MIKE LUONG MD Exam/Review of Systems Vital Signs Vitals Vital Signs Date Time Temp Pulse Resp B/P Pulse Ox O2 Delivery O2 Flow Rate FiO2 09/02/17 12:00 99.6 80 30 149/96 100 Mechanical Ventilator 09/02/17 12:00 80 Intake and Output 09/01/17 09/01/17 09/02/17 15:00 23:00 07:00 Intake Total 1316 ml 686 ml 893 ml Output Total 1844 ml 518 ml 529 ml Balance -528 ml 168 ml 364 ml Results Result Diagram: 09/02/17 0500 09/02/17 0500 Results 24 hrs Laboratory Tests Test 09/01/17 16:51 09/01/17 20:33 09/02/17 02:39 09/02/17 04:49 Bedside Glucose 185 192 211 206 Test 09/02/17 05:00 09/02/17 09:02 09/02/17 12:43 White Blood Count 14.2 #H Red Blood Count 6.01 Hemoglobin 16.2 Hematocrit 54.9 H Mean Corpuscular Volume 91.3 Mean Corpuscular Hemoglobin 27.0 L Mean Corpuscular Hemoglobin Concent 29.5 L Red Cell Distribution Width 18.3 H Platelet Count 248 Mean Platelet Volume 9.7 Neutrophils % 93.0 H Lymphocytes % 2.3 L Monocytes % 4.0 Eosinophils % 0.0 Basophils % 0.1 Nucleated Red Blood Cells % 0.0 Neutrophils # 13.2 H Lymphocytes # 0.3 L Monocytes # 0.6 Eosinophils # 0.0 Basophils # 0.0 Nucleated Red Blood Cells # 0.0 Sodium Level 145 H Potassium Level 4.0 Chloride Level 103 Carbon Dioxide Level 32 H Anion Gap 14 Blood Urea Nitrogen 34 H Creatinine 0.75 Glucose Level 223 H Calcium Level 9.4 Bedside Glucose 213 198 Medications Medications Current Medications Flumazenil (Romazicon) 0.2 mg Q1M PRN IV BENZODIAZEPINE OVERDOSE; Start at 07:30 Naloxone HCl (Narcan) 0.4 mg Q3M PRN IV DECREASED REPIRATORY RATE; Start at 07:30 Ondansetron HCl (Zofran Inj) 4 mg Q6H PRN IV NAUSEA AND/OR VOMITING; Start 08/24/17 at 07:30 Nitroglycerin (Nitroglycerin (Sl Tab) 0.4 Mg) 1 tab Q5M PRN SL CHEST PAIN; Start 08/24/17 at 07:30 Acetaminophen (Tylenol Liquid) 650 mg Q6H PRN PO PAIN LEVEL 1-3 OR FEVER; Start 08/24/17 at 07:30 Acetaminophen (Tylenol Tab) 650 mg Q6H PRN PO PAIN LEVEL 1-3 OR FEVER Last administered on 08/29/17 14:02; Admin Dose 650 MG; Start 08/24/17 at 07:30 Acetaminophen (Tylenol Supp) 650 mg Q4H PRN [place] PAIN LEVEL 1-3 OR TEMP > 37C Last administered on 08/31/17 02:49; Admin Dose 650 MG; Start 08/24/17 at 07: 30 Ibuprofen (Motrin) 600 mg Q6H PRN PO PAIN LEVEL 1-3 OR FEVER; Start 08/24/17 at 07:30 Acetaminophen/ Hydrocodone Bitart ([place] (5/325)) 1 tab Q6H PRN PO PAIN LEVEL 4 -6; Start 08/24/17 at 07:30 Morphine Sulfate (morphine) 2 mg Q4H PRN IV PAIN LEVEL 7-10 Last administered on 08/27/17 03:38; Admin Dose 2 MG; Start 08/24/17 at 07:30 Lorazepam (Ativan) 1 mg Q2H PRN IV ANXIETY Last administered on 08/27/17 04:00 ; Admin Dose 1 MG; Start 08/24/17 at 07:30 Docusate Sodium (Colace) 100 mg Q12H PRN PO CONSTIPATION; Start 08/24/17 at 07: 30 Magnesium Hydroxide (Milk Of Mag) 30 ml DAILY PRN PO CONSTIPATION; Start at 07:30 Bisacodyl (Dulcolax) 5 mg DAILY PRN PO CONSTIPATION; Start 08/24/17 at 07:30 Bisacodyl (Dulcolax Supp) 10 mg DAILY PRN [place] CONSTIPATION; Start 08/24/17 at 07 :30 Sodium Biphosphate/ Sodium Phosphate (Fleet Enema) 133 ml DAILY PRN [place] CONSTIPATION; Start 08/24/17 at 07:30 Enoxaparin Sodium (Lovenox) 40 mg DAILY SC Last administered on 09/02/17 09: 11; Admin Dose 40 MG; Start 08/24/17 at 09:00 Hydralazine HCl (Apresoline) 10 mg Q6H PRN IV ELEVATED BLOOD PRESSURE Last administered on 08/29/17 14:35; Admin Dose 10 MG; Start 08/24/17 at 15:30 Meperidine HCl (Demerol) 12.5 mg Q4H PRN IV POST OPERATIVE SHIVERING; Start at 18:30 Meperidine HCl (Demerol) 25 mg Q4H PRN IV POST OPERATIVE SHIVERING; Start 08/24 at 18:30 Eye Lubricant (Akwa Oint) 1 applic Q6 BOTH EYES Last administered on 11:41; Admin Dose 1 APPLIC; Start 08/24/17 at 18:30 Eye Lubricant 2 drop 2 drop Q6 BOTH EYES Last administered on 09/02/17 11:41 ; Admin Dose 2 DROP; Start 08/24/17 at 18:30 Levetiracetam 100 ml @ 400 mls/hr Q12 IVPB Last administered on 09/02/17 09: 10; Admin Dose 400 MLS/HR; Start 08/25/17 at 10:00 Norepinephrine 16 mg/Dextrose 500 ml @ 1.87 mls/hr TITRATE IV Last administered on 08/26/17 14:32; Admin Dose 22.5 MLS/HR; Start 08/26/17 at 13:30 Fentanyl (Sublimaze) 100 ml @ 2.5 mls/hr TITRATE IV Last administered on 09/02 06:00; Admin Dose 10 MLS/HR; Start 08/27/17 at 09:30 Insulin Glargine (Lantus) 15 unit DAILY@08 SC Last administered on 09/02/17 09:06; Admin Dose 15 UNIT; Start 08/27/17 at 13:00 Miscellaneous Information 1 ea NOTE XX ; Start 08/28/17 at 11:30 Glucose (Glutose) 15 gm Q15M PRN PO DECREASED GLUCOSE; Start 08/28/17 at 11:30 Glucose (Glutose) 22.5 gm Q15M PRN PO DECREASED GLUCOSE; Start 08/28/17 at 11: 30 Dextrose (D50w Syringe) 25 ml Q15M PRN IV DECREASED GLUCOSE; Start 08/28/17 at 11:30 Dextrose (D50w Syringe) 50 ml Q15M PRN IV DECREASED GLUCOSE; Start 08/28/17 at 11:30 Glucagon (Glucagen) 1 mg Q15M PRN IM DECREASED GLUCOSE; Start 08/28/17 at 11:30 Glucose (Glutose) 15 gm Q15M PRN BUCCAL DECREASED GLUCOSE; Start 08/28/17 at 11 :30 IV Flush (NS 10 ml) 10 ml PRN PRN IV IV PROTOCOL; Start 08/28/17 at 14:00 [facility] This patient almanza... PRN PRN XX WOUND CARE; Start 08/28/17 at 23:00 Methylprednisolone Sodium Succinate (Solu-Medrol) 60 mg Q6 IV Last administered on 09/02/17 11:41; Admin Dose 60 MG; Start 08/29/17 at 12:00 Furosemide (Lasix) 40 mg DAILY IV Last administered on 09/02/17 09:09; Admin Dose 40 MG; Start 08/30/17 at 09:00 Metoprolol Tartrate 25 mg 25 mg BID PO ; Start 08/29/17 at 21:00; Status Future Hold Levofloxacin/ Dextrose 100 ml @ 100 mls/hr Q24H IVPB Last administered on 12:40; Admin Dose 100 MLS/HR; Start 08/29/17 at 13:00 Midazolam HCl 50 ml @ 1 mls/hr TITRATE IV Last administered on 09/02/17 10:38 ; Admin Dose 7 MLS/HR; Start 08/29/17 at 16:00 Vancomycin HCl 1.5 gm/Sodium Chloride 250 ml @ 83.333 mls/ hr Q8 IVPB Last administered on 09/02/17 05:24; Admin Dose 83.333 MLS/HR; Start 08/30/17 at 14 :00 Meropenem/Sodium Chloride 50 ml @ 100 mls/hr Q8 IVPB Last administered on 13:31; Admin Dose 100 MLS/HR; Start 08/30/17 at 22:00 Total Parenteral Nutrition (Tpn) 1,000 ml @ 50 mls/hr Q20H IV Last administered on 09/02/17 04:18; Admin Dose 50 MLS/HR; Start 08/30/17 at 16:00 Famotidine (Pepcid Iv) 20 mg BID IV Last administered on 09/02/17 09:09; Admin Dose 20 MG; Start 08/31/17 at 09:00 Levothyroxine Sodium (Synthroid Iv) 25 mcg DAILY@06 IV Last administered on 05:24; Admin Dose 25 MCG; Start 08/31/17 at 06:00 Aspirin (Aspirin) 81 mg DAILY RI ; Start 08/31/17 at 09:00; Status Future Hold Diagnostic Test (Pha) (Accu-Chek) 1 ea 02 XX Last administered on 09/02/17 02 :39; Admin Dose 1 EA; Start 09/01/17 at 02:00 Insulin Aspart (Novolog Insulin Pen) NOVOLOG *MODERATE* ALGORI... Q4 SC Last administered on 09/02/17 12:46; Admin Dose 4 UNIT; Start 08/31/17 at 17:00 Miscellaneous Information (*Rx Drug Level Order Reminder*) VANCO TROUGH @ 2, 100 ON ... ONCE ONCE XX ; Start 09/02/17 at 21:00; Stop 09/02/17 at 21:01 TRACY MENDOZA MD Sep 02, 2017 13:37
--- NOTE | 2017-09-02 16:43 | CONS ---
Date/Time of Note Date/Time of Note DATE: 09/02/17 TIME: 16:39 Consult Date/Type/Reason Admit Date/Time Aug 24, 2017 at 07:05 Initial Consult Date 08/27/17 Type of Consultation: id Ordering Provider: MIKE LUONG MD Objective Vital Signs Date Time Temp Pulse Resp B/P Pulse Ox O2 Delivery O2 Flow Rate FiO2 09/02/17 16:00 60 09/02/17 15:15 70 26 100 09/02/17 15:00 157/104 Mechanical Ventilator 09/02/17 12:00 99.6 Intake and Output 09/01/17 09/01/17 09/02/17 14:59 22:59 06:59 Intake Total 1066 ml 886 ml 943 ml Output Total 1810 ml 537 ml 520 ml Balance -744 ml 349 ml 423 ml Results/Medications Result Diagram: 09/02/17 0500 09/02/17 0500 Results 24 hrs Laboratory Tests Test 09/01/17 16:51 09/01/17 20:33 09/02/17 02:39 09/02/17 04:49 Bedside Glucose 185 192 211 206 Test 09/02/17 05:00 09/02/17 09:02 09/02/17 12:43 09/02/17 16:24 White Blood Count 14.2 #H Red Blood Count 6.01 Hemoglobin 16.2 Hematocrit 54.9 H Mean Corpuscular Volume 91.3 Mean Corpuscular Hemoglobin 27.0 L Mean Corpuscular Hemoglobin Concent 29.5 L Red Cell Distribution Width 18.3 H Platelet Count 248 Mean Platelet Volume 9.7 Neutrophils % 93.0 H Lymphocytes % 2.3 L Monocytes % 4.0 Eosinophils % 0.0 Basophils % 0.1 Nucleated Red Blood Cells % 0.0 Neutrophils # 13.2 H Lymphocytes # 0.3 L Monocytes # 0.6 Eosinophils # 0.0 Basophils # 0.0 Nucleated Red Blood Cells # 0.0 Sodium Level 145 H Potassium Level 4.0 Chloride Level 103 Carbon Dioxide Level 32 H Anion Gap 14 Blood Urea Nitrogen 34 H Creatinine 0.75 Glucose Level 223 H Calcium Level 9.4 Bedside Glucose 213 198 200 Medications Current Medications Flumazenil (Romazicon) 0.2 mg Q1M PRN IV BENZODIAZEPINE OVERDOSE; Start at 07:30 Naloxone HCl (Narcan) 0.4 mg Q3M PRN IV DECREASED REPIRATORY RATE; Start at 07:30 Ondansetron HCl (Zofran Inj) 4 mg Q6H PRN IV NAUSEA AND/OR VOMITING; Start 08/24/17 at 07:30 Nitroglycerin (Nitroglycerin (Sl Tab) 0.4 Mg) 1 tab Q5M PRN SL CHEST PAIN; Start 08/24/17 at 07:30 Acetaminophen (Tylenol Liquid) 650 mg Q6H PRN PO PAIN LEVEL 1-3 OR FEVER; Start 08/24/17 at 07:30 Acetaminophen (Tylenol Tab) 650 mg Q6H PRN PO PAIN LEVEL 1-3 OR FEVER Last administered on 08/29/17 14:02; Admin Dose 650 MG; Start 08/24/17 at 07:30 Acetaminophen (Tylenol Supp) 650 mg Q4H PRN [place] PAIN LEVEL 1-3 OR TEMP > 37C Last administered on 08/31/17 02:49; Admin Dose 650 MG; Start 08/24/17 at 07: 30 Ibuprofen (Motrin) 600 mg Q6H PRN PO PAIN LEVEL 1-3 OR FEVER; Start 08/24/17 at 07:30 Acetaminophen/ Hydrocodone Bitart ([place] (5/325)) 1 tab Q6H PRN PO PAIN LEVEL 4 -6; Start 08/24/17 at 07:30 Morphine Sulfate (morphine) 2 mg Q4H PRN IV PAIN LEVEL 7-10 Last administered on 08/27/17 03:38; Admin Dose 2 MG; Start 08/24/17 at 07:30 Lorazepam (Ativan) 1 mg Q2H PRN IV ANXIETY Last administered on 08/27/17 04:00 ; Admin Dose 1 MG; Start 08/24/17 at 07:30 Docusate Sodium (Colace) 100 mg Q12H PRN PO CONSTIPATION; Start 08/24/17 at 07: 30 Magnesium Hydroxide (Milk Of Mag) 30 ml DAILY PRN PO CONSTIPATION; Start at 07:30 Bisacodyl (Dulcolax) 5 mg DAILY PRN PO CONSTIPATION; Start 08/24/17 at 07:30 Bisacodyl (Dulcolax Supp) 10 mg DAILY PRN [place] CONSTIPATION; Start 08/24/17 at 07 :30 Sodium Biphosphate/ Sodium Phosphate (Fleet Enema) 133 ml DAILY PRN [place] CONSTIPATION; Start 08/24/17 at 07:30 Enoxaparin Sodium (Lovenox) 40 mg DAILY SC Last administered on 09/02/17 09: 11; Admin Dose 40 MG; Start 08/24/17 at 09:00 Hydralazine HCl (Apresoline) 10 mg Q6H PRN IV ELEVATED BLOOD PRESSURE Last administered on 08/29/17 14:35; Admin Dose 10 MG; Start 08/24/17 at 15:30 Meperidine HCl (Demerol) 12.5 mg Q4H PRN IV POST OPERATIVE SHIVERING; Start at 18:30 Meperidine HCl (Demerol) 25 mg Q4H PRN IV POST OPERATIVE SHIVERING; Start 08/24 at 18:30 Eye Lubricant (Akwa Oint) 1 applic Q6 BOTH EYES Last administered on 11:41; Admin Dose 1 APPLIC; Start 08/24/17 at 18:30 Eye Lubricant 2 drop 2 drop Q6 BOTH EYES Last administered on 09/02/17 11:41 ; Admin Dose 2 DROP; Start 08/24/17 at 18:30 Levetiracetam 100 ml @ 400 mls/hr Q12 IVPB Last administered on 09/02/17 09: 10; Admin Dose 400 MLS/HR; Start 08/25/17 at 10:00 Norepinephrine 16 mg/Dextrose 500 ml @ 1.87 mls/hr TITRATE IV Last administered on 08/26/17 14:32; Admin Dose 22.5 MLS/HR; Start 08/26/17 at 13:30 Fentanyl (Sublimaze) 100 ml @ 2.5 mls/hr TITRATE IV Last administered on 09/02 15:08; Admin Dose 10 MLS/HR; Start 08/27/17 at 09:30 Insulin Glargine (Lantus) 15 unit DAILY@08 SC Last administered on 09/02/17 09:06; Admin Dose 15 UNIT; Start 08/27/17 at 13:00 Miscellaneous Information 1 ea NOTE XX ; Start 08/28/17 at 11:30 Glucose (Glutose) 15 gm Q15M PRN PO DECREASED GLUCOSE; Start 08/28/17 at 11:30 Glucose (Glutose) 22.5 gm Q15M PRN PO DECREASED GLUCOSE; Start 08/28/17 at 11: 30 Dextrose (D50w Syringe) 25 ml Q15M PRN IV DECREASED GLUCOSE; Start 08/28/17 at 11:30 Dextrose (D50w Syringe) 50 ml Q15M PRN IV DECREASED GLUCOSE; Start 08/28/17 at 11:30 Glucagon (Glucagen) 1 mg Q15M PRN IM DECREASED GLUCOSE; Start 08/28/17 at 11:30 Glucose (Glutose) 15 gm Q15M PRN BUCCAL DECREASED GLUCOSE; Start 08/28/17 at 11 :30 IV Flush (NS 10 ml) 10 ml PRN PRN IV IV PROTOCOL; Start 08/28/17 at 14:00 Miscellaneous Information [facility] This patient almanza... PRN PRN XX WOUND CARE; Start 08/28/17 at 23:00 Methylprednisolone Sodium Succinate (Solu-Medrol) 60 mg Q6 IV Last administered on 09/02/17 11:41; Admin Dose 60 MG; Start 08/29/17 at 12:00 Furosemide (Lasix) 40 mg DAILY IV Last administered on 09/02/17 09:09; Admin Dose 40 MG; Start 08/30/17 at 09:00 Metoprolol Tartrate 25 mg 25 mg BID PO ; Start 08/29/17 at 21:00; Status Future Hold Levofloxacin/ Dextrose 100 ml @ 100 mls/hr Q24H IVPB Last administered on 12:40; Admin Dose 100 MLS/HR; Start 08/29/17 at 13:00 Midazolam HCl 50 ml @ 1 mls/hr TITRATE IV Last administered on 09/02/17 10:38 ; Admin Dose 7 MLS/HR; Start 08/29/17 at 16:00 Vancomycin HCl 1.5 gm/Sodium Chloride 250 ml @ 83.333 mls/ hr Q8 IVPB Last administered on 09/02/17 13:47; Admin Dose 83.333 MLS/HR; Start 08/30/17 at 14 :00 Meropenem/Sodium Chloride 50 ml @ 100 mls/hr Q8 IVPB Last administered on 13:31; Admin Dose 100 MLS/HR; Start 08/30/17 at 22:00 Total Parenteral Nutrition (Tpn) 1,000 ml @ 50 mls/hr Q20H IV Last administered on 09/02/17 04:18; Admin Dose 50 MLS/HR; Start 08/30/17 at 16:00 Famotidine (Pepcid Iv) 20 mg BID IV Last administered on 09/02/17 09:09; Admin Dose 20 MG; Start 08/31/17 at 09:00 Levothyroxine Sodium (Synthroid Iv) 25 mcg DAILY@06 IV Last administered on 05:24; Admin Dose 25 MCG; Start 08/31/17 at 06:00 Aspirin (Aspirin) 81 mg DAILY NV ; Start 08/31/17 at 09:00; Status Future Hold Diagnostic Test (Pha) (Accu-Chek) 1 ea 02 XX Last administered on 09/02/17 02 :39; Admin Dose 1 EA; Start 09/01/17 at 02:00 Insulin Aspart (Novolog Insulin Pen) NOVOLOG *MODERATE* ALGORI... Q4 SC Last administered on 09/02/17 16:27; Admin Dose 4 UNIT; Start 08/31/17 at 17:00 Miscellaneous Information (*Rx Drug Level Order Reminder*) VANCO TROUGH @ 2, 100 ON ... ONCE ONCE XX ; Start 09/02/17 at 21:00; Stop 09/02/17 at 21:01 Assessment/Plan Chief Complaint/Hosp Course SUBJECTIVE: The patient remains intubated and sedated. On high PEEP of 16 and FiO2 of 100. Looks comfortable MICROBIOLOGY: Cultures negative. ANTIMICROBIALS: 1. Vancomycin. 2. Merrem. 3. Levaquin. INDWELLINGS: Endotracheal tube, NG tube, Fagan catheter, PICC line. PHYSICAL EXAMINATION: GENERAL: Obese, well-developed, middle-aged, man who is in no distress. HEENT: Head atraumatic, normocephalic. Sclerae anicteric. Buccal mucosa dry. NECK: Supple. CHEST: Rise symmetrical. Breath sounds diminished to bases. HEART: S1, S2. ABDOMEN: Soft. Bowel tones hypoactive. EXTREMITIES: With bilateral edema. ASSESSMENT: 1. Sepsis, status post shock with ongoing fevers. 2. Status post cardiopulmonary arrest. 3. Aspiration pneumonia. 4. Acute respiratory failure. 5. Seizure disorder. 6. Coagulase-negative Staphylococcus bacteremia on admission consistent with contaminant. 7. Diabetes. 8. Polycythemia. 9. Severe anoxic encephalopathy PLAN: The patient remains hemodynamically stable. Covered with broad-spectrum antibiotics, also on steroids, with low grade fevers. We will keep him on Merrem , dc other abx, f/u neurology rec-s, pending palliative care eval Problems: BEKA WATKINS NP Sep 02, 2017 16:43
[2017-09-02] MEDS: hydrALAzine 20 MG INJ IV PRN (20:06)
[2017-09-03] VITALS (61 sets, daily range): BP systolic 117–170; BP diastolic 61–133; PULSE 66–114; RESP 16–35
[2017-09-03] MEDS: ARTIFICIAL TEARS 15 ML OPH BOTH EYES SCH ×5 (00:57→23:57)
[2017-09-03] MEDS: OCULAR LUBRICANT 3.5 GM OPH OINT BOTH EYES SCH ×5 (00:57→23:57)
[2017-09-03] MEDS: METHYLPREDNISOLONE 125 MG INJ IV SCH ×2 (00:58→06:08)
[2017-09-03] MEDS: TPN 1,000 ML IV SCH ×2 (00:58→20:06)
[2017-09-03] MEDS: IPRATROPIUM (HFA) 12.9 GM INHALER INH SCH ×6 (01:05→21:00)
[2017-09-03] MEDS: ALBUTEROL HFA 8 GM INHALER INH SCH ×6 (01:05→21:00)
[2017-09-03] MEDS: ACCU-CHEK XX SCH (01:13)
[2017-09-03] MEDS: INSULIN ASPART [NOVOLOG] 3 ML PEN SC SCH ×6 (01:16→20:41)
[2017-09-03] MEDS: MIDAZOLAM (DRIP) 50 mg/50 mL 50 ML IV SCH (03:28)
[2017-09-03] MEDS: LEVOTHYROXINE 100 MCG VIAL IV SCH (06:09)
[2017-09-03] MEDS: MEROPENEM 1 GM/50ML(PMX) 50 ML IVPB SCH ×3 (06:10→22:19)
[2017-09-03 06:35] LABS: ABNORMAL IP MESSAGE 1; BASOPHILS % 0.1 % (0.0-2.0); HEMATOCRIT 54.5 % (42.0-52.0); HEMOGLOBIN 16.3 g/dl (14.0-18.0); LYMPHOCYTES # 0.3 10^3/ul (0.8-2.9); LYMPHOCYTES % 2.1 % (15.0-51.0); MEAN CORPUSCULAR HEMOGLOBIN 27.2 pg (29.0-33.0); MEAN CORPUSCULAR HGB CONC 29.9 g/dl (32.0-37.0); MEAN PLATELET VOLUME 10.1 fl (7.4-10.4); MONOCYTE # 0.5 10^3/ul (0.3-0.9); MONOCYTES % 3.5 % (0.0-11.0); NEUTROPHIL # 13.2 10^3/ul (1.6-7.5); NEUTROPHILS % 93.7 % (39.0-77.0); PLATELET COUNT 282 10^3/UL (140-415); POSITIVE DIFF @See below; RED BLOOD COUNT 5.99 10^6/ul (4.70-6.10); RED CELL DISTRIBUTION WIDTH 18.1 % (11.5-14.5); WHITE BLOOD COUNT 14.1 10^3/ul (4.8-10.8)
[2017-09-03 06:44] LABS: CALCIUM 9.2 mg/dl (8.4-10.2); CREATININE 0.61 mg/dl (0.61-1.24); POTASSIUM 3.9 mmol/L (3.5-5.1)
--- NOTE | 2017-09-03 07:06 | NEURPT ---
DATE: 08/26/2017 was done at that time for the patient. EEG done using International electrode system with nilton tic stimulation. Bilateral occipital hemispheric views show delta and theta wave low amplitud e 4 to 6 Hz are symmetric bilaterally. Photic stimulation done did not elicit drive. No epileptifo rm discharge or seizure activity recorded. IMPRESSION: This is an abnormal electroencephalogram, showed generalized slowing consistent with a history of underlying encephalopathy. No epileptiform discharge or seizure activity is recorded. F ollowup EEG may be needed if clinically indicated. Dictated By: JULY KOLB/NTS Conf#: [id number] DID#: [id number]
--- NOTE | 2017-09-03 07:10 | CONS ---
DATE OF ADMISSION: 08/24/2017 DATE OF CONSULTATION: Patient is 36 years old, status post acute respiratory failure, cardiopulmonary arrest, anoxic encep halopathy, ____ the patient is unresponsive. PHYSICAL EXAMINATION: The patient does not follow any verbal commands. CRANIAL NERVES: Cranial nerve II: Pupils equal on both sides. ____ cranial nerves III, IV, and with intact ____ maneuver. Cranial nerves V and intact, weak corneal reflex. Cranial nerves VII I through XII could not assess. MOTOR: Slight movement for painful stimuli. Sensation, coordination and gait could not assess. HEART: Regular rate and rhythm. LUNGS: Equal breath sounds. ABDOMEN: Soft, relaxed, nondistended. No tenderness. ASSESSMENT AND PLAN: 1. Patient is a 36-year-old status post cardiopulmonary arrest. 2. Status post anoxic encephalopathy with ____. We are going to increase his Keppra 750 mg twice a day. 3. Patient on Fentanyl patch for agitation and pain. We might wean him off and see how the patient responds with that. 4. Status post underlying sepsis and infection with ____ IV antibiotic. Again, thank you for asking me to see the patient with you. Dictated By: JULY KOLB/YESI Conf#: [id number] DID#: [id number]
[2017-09-03] MEDS: FUROSEMIDE 40 MG INJ IV SCH (08:00)
[2017-09-03] MEDS: FAMOTIDINE 20 MG INJ IV SCH ×2 (08:00→20:35)
[2017-09-03] MEDS: LEVETIRACETAM 500 MG (PMX) 100 ML IVPB SCH ×2 (08:00→20:36)
[2017-09-03] MEDS: ENOXAPARIN 40 MG/0.4 ML SYG SC SCH (08:07)
[2017-09-03] MEDS: INSULIN GLARGINE [LANtus] 3 ML PEN SC SCH (08:14)
--- NOTE | 2017-09-03 09:01 | CONS ---
Date/Time of Note Date/Time of Note DATE: 09/03/17 TIME: 08:59 Consult Date/Type/Reason Admit Date/Time Aug 24, 2017 at 07:05 Initial Consult Date 08/27/17 Type of Consultation: Pulmonary Ordering Provider: MIKE LUONG MD Subjective No significant clinical changes. Objective Vital Signs Date Time Temp Pulse Resp B/P Pulse Ox O2 Delivery O2 Flow Rate FiO2 09/03/17 08:00 89 09/03/17 07:45 26 99 09/03/17 07:30 98.7 150/94 Mechanical Ventilator 09/03/17 05:20 40 Intake and Output 09/02/17 09/02/17 09/03/17 14:59 22:59 06:59 Intake Total 991 ml 936 ml 573 ml Output Total 1902 ml 821 ml 836 ml Balance -911 ml 115 ml -263 ml Exam PHYSICAL EXAMINATION: GENERAL: Well-nourished well-developed gentleman comfortable at rest on mechanical ventilation. VITAL SIGNS: NECK: Supple, no JVD or lymphadenopathy. CARDIAC: S1, S2, no added sounds or murmurs. CHEST: Diminished air entry bilaterally. ABDOMEN: Soft, nontender. No guarding or rebound. EXTREMITIES: No cyanosis, clubbing, 1+ edema. NEUROLOGIC: Vegetative state. Results/Medications Result Diagram: 09/03/1715 09/03/17 0515 Results 24 hrs Laboratory Tests Test 09/02/17 09:02 09/02/17 12:43 09/02/17 16:24 09/02/17 21:02 Bedside Glucose 213 198 200 195 Test 09/03/17 01:12 09/03/17 05:15 09/03/17 06:07 09/03/17 08:10 Bedside Glucose 206 249 H 199 White Blood Count 14.1 H Red Blood Count 5.99 Hemoglobin 16.3 Hematocrit 54.5 H Mean Corpuscular Volume 91.0 Mean Corpuscular Hemoglobin 27.2 L Mean Corpuscular Hemoglobin Concent 29.9 L Red Cell Distribution Width 18.1 H Platelet Count 282 Mean Platelet Volume 10.1 Neutrophils % 93.7 H Lymphocytes % 2.1 L Monocytes % 3.5 Eosinophils % 0.0 Basophils % 0.1 Nucleated Red Blood Cells % 0.0 Neutrophils # 13.2 H Lymphocytes # 0.3 L Monocytes # 0.5 Eosinophils # 0.0 Basophils # 0.0 Nucleated Red Blood Cells # 0.0 Sodium Level 144 Potassium Level 3.9 Chloride Level 104 Carbon Dioxide Level 33 H Anion Gap 11 Blood Urea Nitrogen 35 H Creatinine 0.61 Glucose Level 221 H Calcium Level 9.2 Medications Current Medications Flumazenil (Romazicon) 0.2 mg Q1M PRN IV BENZODIAZEPINE OVERDOSE; Start at 07:30 Naloxone HCl (Narcan) 0.4 mg Q3M PRN IV DECREASED REPIRATORY RATE; Start at 07:30 Ondansetron HCl (Zofran Inj) 4 mg Q6H PRN IV NAUSEA AND/OR VOMITING; Start 08/24/17 at 07:30 Nitroglycerin (Nitroglycerin (Sl Tab) 0.4 Mg) 1 tab Q5M PRN SL CHEST PAIN; Start 08/24/17 at 07:30 Acetaminophen (Tylenol Liquid) 650 mg Q6H PRN PO PAIN LEVEL 1-3 OR FEVER; Start 08/24/17 at 07:30 Acetaminophen (Tylenol Tab) 650 mg Q6H PRN PO PAIN LEVEL 1-3 OR FEVER Last administered on 08/29/17 14:02; Admin Dose 650 MG; Start 08/24/17 at 07:30 Acetaminophen (Tylenol Supp) 650 mg Q4H PRN [place] PAIN LEVEL 1-3 OR TEMP > 37C Last administered on 08/31/17 02:49; Admin Dose 650 MG; Start 08/24/17 at 07: 30 Ibuprofen (Motrin) 600 mg Q6H PRN PO PAIN LEVEL 1-3 OR FEVER; Start 08/24/17 at 07:30 Acetaminophen/ Hydrocodone Bitart ([place] (5/325)) 1 tab Q6H PRN PO PAIN LEVEL 4 -6; Start 08/24/17 at 07:30 Morphine Sulfate (morphine) 2 mg Q4H PRN IV PAIN LEVEL 7-10 Last administered on 08/27/17 03:38; Admin Dose 2 MG; Start 08/24/17 at 07:30 Lorazepam (Ativan) 1 mg Q2H PRN IV ANXIETY Last administered on 08/27/17 04:00 ; Admin Dose 1 MG; Start 08/24/17 at 07:30 Docusate Sodium (Colace) 100 mg Q12H PRN PO CONSTIPATION; Start 08/24/17 at 07: 30 Magnesium Hydroxide (Milk Of Mag) 30 ml DAILY PRN PO CONSTIPATION; Start at 07:30 Bisacodyl (Dulcolax) 5 mg DAILY PRN PO CONSTIPATION; Start 08/24/17 at 07:30 Bisacodyl (Dulcolax Supp) 10 mg DAILY PRN [place] CONSTIPATION; Start 08/24/17 at 07 :30 Sodium Biphosphate/ Sodium Phosphate (Fleet Enema) 133 ml DAILY PRN [place] CONSTIPATION; Start 08/24/17 at 07:30 Enoxaparin Sodium (Lovenox) 40 mg DAILY SC Last administered on 09/03/17 08: 07; Admin Dose 40 MG; Start 08/24/17 at 09:00 Hydralazine HCl (Apresoline) 10 mg Q6H PRN IV ELEVATED BLOOD PRESSURE Last administered on 09/02/17 20:06; Admin Dose 10 MG; Start 08/24/17 at 15:30 Meperidine HCl (Demerol) 12.5 mg Q4H PRN IV POST OPERATIVE SHIVERING; Start at 18:30 Meperidine HCl (Demerol) 25 mg Q4H PRN IV POST OPERATIVE SHIVERING; Start 08/24 at 18:30 Eye Lubricant (Akwa Oint) 1 applic Q6 BOTH EYES Last administered on 06:07; Admin Dose 1 APPLIC; Start 08/24/17 at 18:30 Eye Lubricant 2 drop 2 drop Q6 BOTH EYES Last administered on 09/03/17 06:07 ; Admin Dose 2 DROP; Start 08/24/17 at 18:30 Levetiracetam 100 ml @ 400 mls/hr Q12 IVPB Last administered on 09/03/17 08: 00; Admin Dose 400 MLS/HR; Start 08/25/17 at 10:00 Norepinephrine 16 mg/Dextrose 500 ml @ 1.87 mls/hr TITRATE IV Last administered on 08/26/17 14:32; Admin Dose 22.5 MLS/HR; Start 08/26/17 at 13:30 Fentanyl (Sublimaze) 100 ml @ 2.5 mls/hr TITRATE IV Last administered on 09/02 22:53; Admin Dose 10 MLS/HR; Start 08/27/17 at 09:30 Insulin Glargine (Lantus) 15 unit DAILY@08 SC Last administered on 09/03/17 08:14; Admin Dose 15 UNIT; Start 08/27/17 at 13:00 Miscellaneous Information 1 ea NOTE XX ; Start 08/28/17 at 11:30 Glucose (Glutose) 15 gm Q15M PRN PO DECREASED GLUCOSE; Start 08/28/17 at 11:30 Glucose (Glutose) 22.5 gm Q15M PRN PO DECREASED GLUCOSE; Start 08/28/17 at 11: 30 Dextrose (D50w Syringe) 25 ml Q15M PRN IV DECREASED GLUCOSE; Start 08/28/17 at 11:30 Dextrose (D50w Syringe) 50 ml Q15M PRN IV DECREASED GLUCOSE; Start 08/28/17 at 11:30 Glucagon (Glucagen) 1 mg Q15M PRN IM DECREASED GLUCOSE; Start 08/28/17 at 11:30 Glucose (Glutose) 15 gm Q15M PRN BUCCAL DECREASED GLUCOSE; Start 08/28/17 at 11 :30 IV Flush (NS 10 ml) 10 ml PRN PRN IV IV PROTOCOL; Start 08/28/17 at 14:00 Miscellaneous Information (Pending [facility] Order For Wound Care) This patient almanza... PRN PRN XX WOUND CARE; Start 08/28/17 at 23:00 Methylprednisolone Sodium Succinate (Solu-Medrol) 60 mg Q6 IV Last administered on 09/03/17 06:08; Admin Dose 60 MG; Start 08/29/17 at 12:00 Furosemide (Lasix) 40 mg DAILY IV Last administered on 09/03/17 08:00; Admin Dose 40 MG; Start 08/30/17 at 09:00 Metoprolol Tartrate 25 mg 25 mg BID PO ; Start 08/29/17 at 21:00; Status Future Hold Midazolam HCl 50 ml @ 1 mls/hr TITRATE IV Last administered on 09/03/17 03:28 ; Admin Dose 7 MLS/HR; Start 08/29/17 at 16:00 Meropenem/Sodium Chloride 50 ml @ 100 mls/hr Q8 IVPB Last administered on 06:10; Admin Dose 100 MLS/HR; Start 08/30/17 at 22:00 Total Parenteral Nutrition (Tpn) 1,000 ml @ 50 mls/hr Q20H IV Last administered on 09/03/17 00:58; Admin Dose 50 MLS/HR; Start 08/30/17 at 16:00 Famotidine (Pepcid Iv) 20 mg BID IV Last administered on 09/03/17 08:00; Admin Dose 20 MG; Start 08/31/17 at 09:00 Levothyroxine Sodium (Synthroid Iv) 25 mcg DAILY@06 IV Last administered on 06:09; Admin Dose 25 MCG; Start 08/31/17 at 06:00 Aspirin (Aspirin) 81 mg DAILY NC ; Start 08/31/17 at 09:00; Status Future Hold Diagnostic Test (Pha) (Accu-Chek) 1 ea 02 XX Last administered on 09/03/17 01 :13; Admin Dose 1 EA; Start 09/01/17 at 02:00 Insulin Aspart (Novolog Insulin Pen) NOVOLOG *MODERATE* ALGORI... Q4 SC Last administered on 09/03/17 08:33; Admin Dose 4 UNIT; Start 08/31/17 at 17:00 Assessment/Plan Chief Complaint/Hosp Course IMP: 1. s/p Cardiopulmonary arrest--likely due to aspiration and central airway obstruction 2. Seizure Disorder 3. Gram + bacteremia--likely contaminant 4. Possible anoxic brain injury 5. CAP vs. aspiration, no evidence of pulmonary embolism on CT angiogram 6. Morbid obesity 7. DM RECS: 1. Continue mechanical ventilation for weaning, decrease FiO2 and PEEP as tolerated. Currently on volume control ventilation. 2. Anti-epileptic Rx and propofol gtt decrease sedation as tolerated 3. Nasogastric tube feeding as tolerated 4. Abx 5. F/U Cx's 6. DVT and GI prophylaxis 7. EEG and neuro recommendations. 8. Steroid taper 35 min cc time Palliative care consult. Consider bioethics consult. Prognosis very poor. Problems: JULIANA WASHINGTON MD, [facility] Sep 03, 2017 09:01
--- NOTE | 2017-09-03 09:20 | PN ---
Date/Time of Note Date/Time of Note DATE: 09/03/17 TIME: 09:08 Assessment/Plan VTE Prophylaxis VTE Prophylaxis Intervention: LMWH Lines/Catheters IV Catheter Type (from Nrs): PICC Line Central line still needed: Yes Urinary Cath still in place: Yes Reason Cath still needed: urinary retention Assessment/Plan Chief Complaint/Hosp Course 36 y/o # s/p Cardiopulmonary arrest--? aspiration, CT head negative, ECHO no wall motion abnormalitis, CTPA negative for PE # Severe anoxic encephalopathy on vent s/p EEG X3 and followed by Neuro # Aspiration pneumonia. # Acute respiratory failure on vent 100% # hx Seizure disorder. # . Coagulase-negative Staphylococcus bacteremia on admission consistent with contaminant. # Diabetes. # Polycythemia. Plan - Trial off sedation today; spoke with Pulmonary - Mechanical ventilation per Pulmonary - Keppra per Neuro - TPN for feeding - Solumedrol per pulmonary - on iv meropenam - c/w iv lasix - c/w levothyroxine - c/w pepcid and lovenox Family meeting today with palliative care Problems: Subjective 24 Hr Interval Summary Free Text/Dictation Vs stable Started on steroids yesterday Family meeting today Slight movement on painful stimuli Exam/Review of Systems Vital Signs Vitals Vital Signs Date Time Temp Pulse Resp B/P Pulse Ox O2 Delivery O2 Flow Rate FiO2 09/03/17 08:00 89 09/03/17 07:45 26 99 09/03/17 07:30 98.7 150/94 Mechanical Ventilator 09/03/17 05:20 40 Intake and Output 09/02/17 09/02/17 09/03/17 15:00 23:00 07:00 Intake Total 991 ml 936 ml 506 ml Output Total 1923 ml 798 ml 764 ml Balance -932 ml 138 ml -258 ml Exam Gen: Unresponsive to verbal commands, slight movement on heavy sternal rub, pupils sluggish HEENT: Blood shot eyes Neck:thick Lungs: decreased breath sounds b/l Abdomen: distended, soft Ext +edema Fagan Picc line Results Result Diagram: 09/03/17 0515 09/03/17 0515 Results 24 hrs Laboratory Tests Test 09/02/17 12:43 09/02/17 16:24 09/02/17 21:02 09/03/17 01:12 Bedside Glucose 198 200 195 206 Test 09/03/17 05:15 09/03/17 06:07 09/03/17 08:10 White Blood Count 14.1 H Red Blood Count 5.99 Hemoglobin 16.3 Hematocrit 54.5 H Mean Corpuscular Volume 91.0 Mean Corpuscular Hemoglobin 27.2 L Mean Corpuscular Hemoglobin Concent 29.9 L Red Cell Distribution Width 18.1 H Platelet Count 282 Mean Platelet Volume 10.1 Neutrophils % 93.7 H Lymphocytes % 2.1 L Monocytes % 3.5 Eosinophils % 0.0 Basophils % 0.1 Nucleated Red Blood Cells % 0.0 Neutrophils # 13.2 H Lymphocytes # 0.3 L Monocytes # 0.5 Eosinophils # 0.0 Basophils # 0.0 Nucleated Red Blood Cells # 0.0 Sodium Level 144 Potassium Level 3.9 Chloride Level 104 Carbon Dioxide Level 33 H Anion Gap 11 Blood Urea Nitrogen 35 H Creatinine 0.61 Glucose Level 221 H Calcium Level 9.2 Bedside Glucose 249 H 199 Medications Medications Current Medications Flumazenil (Romazicon) 0.2 mg Q1M PRN IV BENZODIAZEPINE OVERDOSE; Start at 07:30 Naloxone HCl (Narcan) 0.4 mg Q3M PRN IV DECREASED REPIRATORY RATE; Start at 07:30 Ondansetron HCl (Zofran Inj) 4 mg Q6H PRN IV NAUSEA AND/OR VOMITING; Start 08/24/17 at 07:30 Nitroglycerin (Nitroglycerin (Sl Tab) 0.4 Mg) 1 tab Q5M PRN SL CHEST PAIN; Start 08/24/17 at 07:30 Acetaminophen (Tylenol Liquid) 650 mg Q6H PRN PO PAIN LEVEL 1-3 OR FEVER; Start 08/24/17 at 07:30 Acetaminophen (Tylenol Tab) 650 mg Q6H PRN PO PAIN LEVEL 1-3 OR FEVER Last administered on 08/29/17 14:02; Admin Dose 650 MG; Start 08/24/17 at 07:30 Acetaminophen (Tylenol Supp) 650 mg Q4H PRN [place] PAIN LEVEL 1-3 OR TEMP > 37C Last administered on 08/31/17 02:49; Admin Dose 650 MG; Start 08/24/17 at 07: 30 Ibuprofen (Motrin) 600 mg Q6H PRN PO PAIN LEVEL 1-3 OR FEVER; Start 08/24/17 at 07:30 Acetaminophen/ Hydrocodone Bitart ([place] (5/325)) 1 tab Q6H PRN PO PAIN LEVEL 4 -6; Start 08/24/17 at 07:30 Morphine Sulfate (morphine) 2 mg Q4H PRN IV PAIN LEVEL 7-10 Last administered on 08/27/17 03:38; Admin Dose 2 MG; Start 08/24/17 at 07:30 Lorazepam (Ativan) 1 mg Q2H PRN IV ANXIETY Last administered on 08/27/17 04:00 ; Admin Dose 1 MG; Start 08/24/17 at 07:30 Docusate Sodium (Colace) 100 mg Q12H PRN PO CONSTIPATION; Start 08/24/17 at 07: 30 Magnesium Hydroxide (Milk Of Mag) 30 ml DAILY PRN PO CONSTIPATION; Start at 07:30 Bisacodyl (Dulcolax) 5 mg DAILY PRN PO CONSTIPATION; Start 08/24/17 at 07:30 Bisacodyl (Dulcolax Supp) 10 mg DAILY PRN [place] CONSTIPATION; Start 08/24/17 at 07 :30 Sodium Biphosphate/ Sodium Phosphate (Fleet Enema) 133 ml DAILY PRN [place] CONSTIPATION; Start 08/24/17 at 07:30 Enoxaparin Sodium (Lovenox) 40 mg DAILY SC Last administered on 09/03/17 08: 07; Admin Dose 40 MG; Start 08/24/17 at 09:00 Hydralazine HCl (Apresoline) 10 mg Q6H PRN IV ELEVATED BLOOD PRESSURE Last administered on 09/02/17 20:06; Admin Dose 10 MG; Start 08/24/17 at 15:30 Meperidine HCl (Demerol) 12.5 mg Q4H PRN IV POST OPERATIVE SHIVERING; Start at 18:30 Meperidine HCl (Demerol) 25 mg Q4H PRN IV POST OPERATIVE SHIVERING; Start 08/24 at 18:30 Eye Lubricant (Akwa Oint) 1 applic Q6 BOTH EYES Last administered on 06:07; Admin Dose 1 APPLIC; Start 08/24/17 at 18:30 Eye Lubricant 2 drop 2 drop Q6 BOTH EYES Last administered on 09/03/17 06:07 ; Admin Dose 2 DROP; Start 08/24/17 at 18:30 Levetiracetam 100 ml @ 400 mls/hr Q12 IVPB Last administered on 09/03/17 08: 00; Admin Dose 400 MLS/HR; Start 08/25/17 at 10:00 Norepinephrine 16 mg/Dextrose 500 ml @ 1.87 mls/hr TITRATE IV Last administered on 08/26/17 14:32; Admin Dose 22.5 MLS/HR; Start 08/26/17 at 13:30 Fentanyl (Sublimaze) 100 ml @ 2.5 mls/hr TITRATE IV Last administered on 09/02 22:53; Admin Dose 10 MLS/HR; Start 08/27/17 at 09:30 Insulin Glargine (Lantus) 15 unit DAILY@08 SC Last administered on 09/03/17 08:14; Admin Dose 15 UNIT; Start 08/27/17 at 13:00 Miscellaneous Information 1 ea NOTE XX ; Start 08/28/17 at 11:30 Glucose (Glutose) 15 gm Q15M PRN PO DECREASED GLUCOSE; Start 08/28/17 at 11:30 Glucose (Glutose) 22.5 gm Q15M PRN PO DECREASED GLUCOSE; Start 08/28/17 at 11: 30 Dextrose (D50w Syringe) 25 ml Q15M PRN IV DECREASED GLUCOSE; Start 08/28/17 at 11:30 Dextrose (D50w Syringe) 50 ml Q15M PRN IV DECREASED GLUCOSE; Start 08/28/17 at 11:30 Glucagon (Glucagen) 1 mg Q15M PRN IM DECREASED GLUCOSE; Start 08/28/17 at 11:30 Glucose (Glutose) 15 gm Q15M PRN BUCCAL DECREASED GLUCOSE; Start 08/28/17 at 11 :30 IV Flush (NS 10 ml) 10 ml PRN PRN IV IV PROTOCOL; Start 08/28/17 at 14:00 Miscellaneous Information ([facility]) This patient almanza... PRN PRN XX WOUND CARE; Start 08/28/17 at 23:00 Furosemide (Lasix) 40 mg DAILY IV Last administered on 09/03/17 08:00; Admin Dose 40 MG; Start 08/30/17 at 09:00 Metoprolol Tartrate 25 mg 25 mg BID PO ; Start 08/29/17 at 21:00; Status Future Hold Midazolam HCl 50 ml @ 1 mls/hr TITRATE IV Last administered on 09/03/17 03:28 ; Admin Dose 7 MLS/HR; Start 08/29/17 at 16:00 Meropenem/Sodium Chloride 50 ml @ 100 mls/hr Q8 IVPB Last administered on 06:10; Admin Dose 100 MLS/HR; Start 08/30/17 at 22:00 Total Parenteral Nutrition (Tpn) 1,000 ml @ 50 mls/hr Q20H IV Last administered on 09/03/17 00:58; Admin Dose 50 MLS/HR; Start 08/30/17 at 16:00 Famotidine (Pepcid Iv) 20 mg BID IV Last administered on 09/03/17 08:00; Admin Dose 20 MG; Start 08/31/17 at 09:00 Levothyroxine Sodium (Synthroid Iv) 25 mcg DAILY@06 IV Last administered on 06:09; Admin Dose 25 MCG; Start 08/31/17 at 06:00 Aspirin (Aspirin) 81 mg DAILY [place] ; Start 08/31/17 at 09:00; Status Future Hold Diagnostic Test (Pha) (Accu-Chek) 1 ea 02 XX Last administered on 09/03/17 01 :13; Admin Dose 1 EA; Start 09/01/17 at 02:00 Insulin Aspart (Novolog Insulin Pen) NOVOLOG *MODERATE* ALGORI... Q4 SC Last administered on 09/03/17 08:33; Admin Dose 4 UNIT; Start 08/31/17 at 17:00 Methylprednisolone Sodium Succinate (Solu-Medrol) 40 mg BID IV ; Start at 21:00; Status ELMER BECKWITH MD Sep 03, 2017 09:19
--- NOTE | 2017-09-03 11:15 | CONS ---
Date/Time of Note Date/Time of Note DATE: 09/03/17 TIME: 11:08 Assessment/Plan Assessment/Plan Chief Complaint/Hosp Course IMPRESSION: 1. Pulseless electrical activity cardiac arrest. EF 50% by echo this admit 2. Abnormal electrocardiogram with diffuse ST depressions but in the setting of cardiac arrest. 3. Hypotension-improved off pressors 4. Tachycardia consistent with sinus tachycardia. 5. Encephalopathy. 6. History of flu-like illness. 7. Hypothyroidism. 8. Hematuria. 9. 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 Lactic acidosis. 11. Leukocytosis. 12. Positive troponin-minimal in setting of cardiac arrest and now trended negative 14. bacteremia 15. Fevers Recc: -Tele in ICU -continue abx's and f/u cx data -Follow MS closely -Continue asa -Resume BB as tolerated -Continue lasix diuresis daily Problems: Consultation Date/Type/Reason Admit Date/Time Aug 24, 2017 at 07:05 Initial Consult Date 08/27/17 Type of Consultation: cardiology Reason for Consultation cardiac arrest Referring Provider: MIKE LUONG MD Exam/Review of Systems Vital Signs Vitals Vital Signs Date Time Temp Pulse Resp B/P Pulse Ox O2 Delivery O2 Flow Rate FiO2 09/03/17 11:00 75 26 99 30 09/03/17 10:45 136/82 09/03/17 10:00 Mechanical Ventilator 09/03/17 07:30 98.7 Intake and Output 09/02/17 09/02/17 09/03/17 15:00 23:00 07:00 Intake Total 991 ml 936 ml 573 ml Output Total 1923 ml 798 ml 818 ml Balance -932 ml 138 ml -245 ml Exam Review of Systems: CONSTITUTIONAL: No fevers, chills. PULMONARY: No sob CARDIOVASCULAR: No chest pain/palpitations GASTROINTESTINAL: No nausea/vomiting. GENITOURINARY: No hematuria/dysuria. MUSCULOSKELETAL: No myagias/arthalgias. PSYCHIATRIC: The patient denies depression. NEUROLOGIC: No weakness Constitutional: other (sedated, encephalopathic) Psych: no complaints Head: normocephalic ENMT: mucosa pink and moist Neck: jvd (9 cm water), supple Respiratory: other (upper airway rhocherous sounds) Cardiovascular: regular rate and rhythm Gastrointestinal: non-tender, soft Musculoskeletal: muscle weakness (generalized) Extremities: edema (none) Neurological: other (encephalopathic) Results Result Diagram: 09/03/17 0515 09/03/17 0515 Results 24 hrs Laboratory Tests Test 09/02/17 12:43 09/02/17 16:24 09/02/17 21:02 09/03/17 01:12 Bedside Glucose 198 200 195 206 Test 09/03/17 05:15 09/03/17 06:07 09/03/17 08:10 White Blood Count 14.1 H Red Blood Count 5.99 Hemoglobin 16.3 Hematocrit 54.5 H Mean Corpuscular Volume 91.0 Mean Corpuscular Hemoglobin 27.2 L Mean Corpuscular Hemoglobin Concent 29.9 L Red Cell Distribution Width 18.1 H Platelet Count 282 Mean Platelet Volume 10.1 Neutrophils % 93.7 H Lymphocytes % 2.1 L Monocytes % 3.5 Eosinophils % 0.0 Basophils % 0.1 Nucleated Red Blood Cells % 0.0 Neutrophils # 13.2 H Lymphocytes # 0.3 L Monocytes # 0.5 Eosinophils # 0.0 Basophils # 0.0 Nucleated Red Blood Cells # 0.0 Sodium Level 144 Potassium Level 3.9 Chloride Level 104 Carbon Dioxide Level 33 H Anion Gap 11 Blood Urea Nitrogen 35 H Creatinine 0.61 Glucose Level 221 H Calcium Level 9.2 Bedside Glucose 249 H 199 Medications Medications Current Medications Flumazenil (Romazicon) 0.2 mg Q1M PRN IV BENZODIAZEPINE OVERDOSE; Start at 07:30 Naloxone HCl (Narcan) 0.4 mg Q3M PRN IV DECREASED REPIRATORY RATE; Start at 07:30 Ondansetron HCl (Zofran Inj) 4 mg Q6H PRN IV NAUSEA AND/OR VOMITING; Start 08/24/17 at 07:30 Nitroglycerin (Nitroglycerin (Sl Tab) 0.4 Mg) 1 tab Q5M PRN SL CHEST PAIN; Start 08/24/17 at 07:30 Acetaminophen (Tylenol Liquid) 650 mg Q6H PRN PO PAIN LEVEL 1-3 OR FEVER; Start 08/24/17 at 07:30 Acetaminophen (Tylenol Tab) 650 mg Q6H PRN PO PAIN LEVEL 1-3 OR FEVER Last administered on 08/29/17t 14:02; Admin Dose 650 MG; Start 08/24/17 at 07:30 Acetaminophen (Tylenol Supp) 650 mg Q4H PRN [place] PAIN LEVEL 1-3 OR TEMP > 37C Last administered on 08/31/17 02:49; Admin Dose 650 MG; Start 08/24/17 at 07: 30 Ibuprofen (Motrin) 600 mg Q6H PRN PO PAIN LEVEL 1-3 OR FEVER; Start 08/24/17 at 07:30 Acetaminophen/ Hydrocodone Bitart ([place] (5/325)) 1 tab Q6H PRN PO PAIN LEVEL 4 -6; Start 08/24/17 at 07:30 Morphine Sulfate (morphine) 2 mg Q4H PRN IV PAIN LEVEL 7-10 Last administered on 08/27/17 03:38; Admin Dose 2 MG; Start 08/24/17 at 07:30 Lorazepam (Ativan) 1 mg Q2H PRN IV ANXIETY Last administered on 08/27/17 04:00 ; Admin Dose 1 MG; Start 08/24/17 at 07:30 Docusate Sodium (Colace) 100 mg Q12H PRN PO CONSTIPATION; Start 08/24/17 at 07: 30 Magnesium Hydroxide (Milk Of Mag) 30 ml DAILY PRN PO CONSTIPATION; Start at 07:30 Bisacodyl (Dulcolax) 5 mg DAILY PRN PO CONSTIPATION; Start 08/24/17 at 07:30 Bisacodyl (Dulcolax Supp) 10 mg DAILY PRN [place] CONSTIPATION; Start 08/24/17 at 07 :30 Sodium Biphosphate/ Sodium Phosphate (Fleet Enema) 133 ml DAILY PRN [place] CONSTIPATION; Start 08/24/17 at 07:30 Enoxaparin Sodium (Lovenox) 40 mg DAILY SC Last administered on 09/03/17 08: 07; Admin Dose 40 MG; Start 08/24/17 at 09:00 Hydralazine HCl (Apresoline) 10 mg Q6H PRN IV ELEVATED BLOOD PRESSURE Last administered on 09/02/17 20:06; Admin Dose 10 MG; Start 08/24/17 at 15:30 Meperidine HCl (Demerol) 12.5 mg Q4H PRN IV POST OPERATIVE SHIVERING; Start at 18:30 Meperidine HCl (Demerol) 25 mg Q4H PRN IV POST OPERATIVE SHIVERING; Start 08/24 at 18:30 Eye Lubricant (Akwa Oint) 1 applic Q6 BOTH EYES Last administered on 06:07; Admin Dose 1 APPLIC; Start 08/24/17 at 18:30 Eye Lubricant 2 drop 2 drop Q6 BOTH EYES Last administered on 09/03/17 06:07 ; Admin Dose 2 DROP; Start 08/24/17 at 18:30 Levetiracetam 100 ml @ 400 mls/hr Q12 IVPB Last administered on 09/03/17 08: 00; Admin Dose 400 MLS/HR; Start 08/25/17 at 10:00 Norepinephrine 16 mg/Dextrose 500 ml @ 1.87 mls/hr TITRATE IV Last administered on 08/26/17 14:32; Admin Dose 22.5 MLS/HR; Start 08/26/17 at 13:30 Fentanyl (Sublimaze) 100 ml @ 2.5 mls/hr TITRATE IV Last administered on 09/02 22:53; Admin Dose 10 MLS/HR; Start 08/27/17 at 09:30 Insulin Glargine (Lantus) 15 unit DAILY@08 SC Last administered on 09/03/17 08:14; Admin Dose 15 UNIT; Start 08/27/17 at 13:00 Miscellaneous Information 1 ea NOTE XX ; Start 08/28/17 at 11:30 Glucose (Glutose) 15 gm Q15M PRN PO DECREASED GLUCOSE; Start 08/28/17 at 11:30 Glucose (Glutose) 22.5 gm Q15M PRN PO DECREASED GLUCOSE; Start 08/28/17 at 11: 30 Dextrose (D50w Syringe) 25 ml Q15M PRN IV DECREASED GLUCOSE; Start 08/28/17 at 11:30 Dextrose (D50w Syringe) 50 ml Q15M PRN IV DECREASED GLUCOSE; Start 08/28/17 at 11:30 Glucagon (Glucagen) 1 mg Q15M PRN IM DECREASED GLUCOSE; Start 08/28/17 at 11:30 Glucose (Glutose) 15 gm Q15M PRN BUCCAL DECREASED GLUCOSE; Start 08/28/17 at 11 :30 IV Flush (NS 10 ml) 10 ml PRN PRN IV IV PROTOCOL; Start 08/28/17 at 14:00 Miscellaneous Information (Pending Santyl Order For Wound Care) This patient almanza... PRN PRN XX WOUND CARE; Start 08/28/17 at 23:00 Furosemide (Lasix) 40 mg DAILY IV Last administered on 09/03/17 08:00; Admin Dose 40 MG; Start 08/30/17 at 09:00 Metoprolol Tartrate 25 mg 25 mg BID PO ; Start 08/29/17 at 21:00; Status Future Hold Midazolam HCl 50 ml @ 1 mls/hr TITRATE IV Last administered on 09/03/17 03:28 ; Admin Dose 7 MLS/HR; Start 08/29/17 at 16:00 Meropenem/Sodium Chloride 50 ml @ 100 mls/hr Q8 IVPB Last administered on 06:10; Admin Dose 100 MLS/HR; Start 08/30/17 at 22:00 Total Parenteral Nutrition (Tpn) 1,000 ml @ 50 mls/hr Q20H IV Last administered on 09/03/17 00:58; Admin Dose 50 MLS/HR; Start 08/30/17 at 16:00 Famotidine (Pepcid Iv) 20 mg BID IV Last administered on 09/03/17 08:00; Admin Dose 20 MG; Start 08/31/17 at 09:00 Levothyroxine Sodium (Synthroid Iv) 25 mcg DAILY@06 IV Last administered on 06:09; Admin Dose 25 MCG; Start 08/31/17 at 06:00 Aspirin (Aspirin) 81 mg DAILY [place] ; Start 08/31/17 at 09:00; Status Future Hold Diagnostic Test (Pha) (Accu-Chek) 1 ea 02 XX Last administered on 09/03/17 01 :13; Admin Dose 1 EA; Start 09/01/17 at 02:00 Insulin Aspart (Novolog Insulin Pen) NOVOLOG *MODERATE* ALGORI... Q4 SC Last administered on 09/03/17 08:33; Admin Dose 4 UNIT; Start 08/31/17 at 17:00 Methylprednisolone Sodium Succinate (Solu-Medrol) 40 mg BID IV ; Start at 21:00 SKYLAR ABDALLA 13, 2017 11:15
--- NOTE | 2017-09-03 12:10 | CONS ---
Date/Time of Note Date/Time of Note DATE: 09/03/17 TIME: 12:08 Consult Date/Type/Reason Admit Date/Time Aug 24, 2017 at 07:05 Initial Consult Date 08/27/17 Type of Consultation: ID Ordering Provider: MIKE LUONG MD Objective Vital Signs Date Time Temp Pulse Resp B/P Pulse Ox O2 Delivery O2 Flow Rate FiO2 09/03/17 11:00 75 26 99 30 09/03/17 10:45 136/82 09/03/17 10:00 Mechanical Ventilator 09/03/17 07:30 98.7 Intake and Output 09/02/17 09/02/17 09/03/17 15:00 23:00 07:00 Intake Total 991 ml 936 ml 573 ml Output Total 1923 ml 798 ml 818 ml Balance -932 ml 138 ml -245 ml Results/Medications Result Diagram: 09/03/17 0515 09/03/17 0515 Results 24 hrs Laboratory Tests Test 09/02/17 12:43 09/02/17 16:24 09/02/17 21:02 09/03/17 01:12 Bedside Glucose 198 200 195 206 Test 09/03/17 05:15 09/03/17 06:07 09/03/17 08:10 White Blood Count 14.1 H Red Blood Count 5.99 Hemoglobin 16.3 Hematocrit 54.5 H Mean Corpuscular Volume 91.0 Mean Corpuscular Hemoglobin 27.2 L Mean Corpuscular Hemoglobin Concent 29.9 L Red Cell Distribution Width 18.1 H Platelet Count 282 Mean Platelet Volume 10.1 Neutrophils % 93.7 H Lymphocytes % 2.1 L Monocytes % 3.5 Eosinophils % 0.0 Basophils % 0.1 Nucleated Red Blood Cells % 0.0 Neutrophils # 13.2 H Lymphocytes # 0.3 L Monocytes # 0.5 Eosinophils # 0.0 Basophils # 0.0 Nucleated Red Blood Cells # 0.0 Sodium Level 144 Potassium Level 3.9 Chloride Level 104 Carbon Dioxide Level 33 H Anion Gap 11 Blood Urea Nitrogen 35 H Creatinine 0.61 Glucose Level 221 H Calcium Level 9.2 Bedside Glucose 249 H 199 Medications Current Medications Flumazenil (Romazicon) 0.2 mg Q1M PRN IV BENZODIAZEPINE OVERDOSE; Start at 07:30 Naloxone HCl (Narcan) 0.4 mg Q3M PRN IV DECREASED REPIRATORY RATE; Start at 07:30 Ondansetron HCl (Zofran Inj) 4 mg Q6H PRN IV NAUSEA AND/OR VOMITING; Start 08/24/17 at 07:30 Nitroglycerin (Nitroglycerin (Sl Tab) 0.4 Mg) 1 tab Q5M PRN SL CHEST PAIN; Start 08/24/17 at 07:30 Acetaminophen (Tylenol Liquid) 650 mg Q6H PRN PO PAIN LEVEL 1-3 OR FEVER; Start 08/24/17 at 07:30 Acetaminophen (Tylenol Tab) 650 mg Q6H PRN PO PAIN LEVEL 1-3 OR FEVER Last administered on 08/29/17 14:02; Admin Dose 650 MG; Start 08/24/17 at 07:30 Acetaminophen (Tylenol Supp) 650 mg Q4H PRN [place] PAIN LEVEL 1-3 OR TEMP > 37C Last administered on 08/31/17 02:49; Admin Dose 650 MG; Start 08/24/17 at 07: 30 Ibuprofen (Motrin) 600 mg Q6H PRN PO PAIN LEVEL 1-3 OR FEVER; Start 08/24/17 at 07:30 Acetaminophen/ Hydrocodone Bitart ([place] (5/325)) 1 tab Q6H PRN PO PAIN LEVEL 4 -6; Start 08/24/17 at 07:30 Morphine Sulfate (morphine) 2 mg Q4H PRN IV PAIN LEVEL 7-10 Last administered on 08/27/17 03:38; Admin Dose 2 MG; Start 08/24/17 at 07:30 Lorazepam (Ativan) 1 mg Q2H PRN IV ANXIETY Last administered on 08/27/17 04:00 ; Admin Dose 1 MG; Start 08/24/17 at 07:30 Docusate Sodium (Colace) 100 mg Q12H PRN PO CONSTIPATION; Start 08/24/17 at 07: 30 Magnesium Hydroxide (Milk Of Mag) 30 ml DAILY PRN PO CONSTIPATION; Start at 07:30 Bisacodyl (Dulcolax) 5 mg DAILY PRN PO CONSTIPATION; Start 08/24/17 at 07:30 Bisacodyl (Dulcolax Supp) 10 mg DAILY PRN [place] CONSTIPATION; Start 08/24/17 at 07 :30 Sodium Biphosphate/ Sodium Phosphate (Fleet Enema) 133 ml DAILY PRN AL CONSTIPATION; Start 08/24/17 at 07:30 Enoxaparin Sodium (Lovenox) 40 mg DAILY SC Last administered on 09/03/17 08: 07; Admin Dose 40 MG; Start 08/24/17 at 09:00 Hydralazine HCl (Apresoline) 10 mg Q6H PRN IV ELEVATED BLOOD PRESSURE Last administered on 09/02/17 20:06; Admin Dose 10 MG; Start 08/24/17 at 15:30 Meperidine HCl (Demerol) 12.5 mg Q4H PRN IV POST OPERATIVE SHIVERING; Start at 18:30 Meperidine HCl (Demerol) 25 mg Q4H PRN IV POST OPERATIVE SHIVERING; Start 08/24 at 18:30 Eye Lubricant (Akwa Oint) 1 applic Q6 BOTH EYES Last administered on 06:07; Admin Dose 1 APPLIC; Start 08/24/17 at 18:30 Eye Lubricant 2 drop 2 drop Q6 BOTH EYES Last administered on 09/03/17 06:07 ; Admin Dose 2 DROP; Start 08/24/17 at 18:30 Levetiracetam 100 ml @ 400 mls/hr Q12 IVPB Last administered on 09/03/17 08: 00; Admin Dose 400 MLS/HR; Start 08/25/17 at 10:00 Norepinephrine 16 mg/Dextrose 500 ml @ 1.87 mls/hr TITRATE IV Last administered on 08/26/17 14:32; Admin Dose 22.5 MLS/HR; Start 08/26/17 at 13:30 Fentanyl (Sublimaze) 100 ml @ 2.5 mls/hr TITRATE IV Last administered on 09/02 22:53; Admin Dose 10 MLS/HR; Start 08/27/17 at 09:30 Insulin Glargine (Lantus) 15 unit DAILY@08 SC Last administered on 09/03/17 08:14; Admin Dose 15 UNIT; Start 08/27/17 at 13:00 Miscellaneous Information 1 ea NOTE XX ; Start 08/28/17 at 11:30 Glucose (Glutose) 15 gm Q15M PRN PO DECREASED GLUCOSE; Start 08/28/17 at 11:30 Glucose (Glutose) 22.5 gm Q15M PRN PO DECREASED GLUCOSE; Start 08/28/17 at 11: 30 Dextrose (D50w Syringe) 25 ml Q15M PRN IV DECREASED GLUCOSE; Start 08/28/17 at 11:30 Dextrose (D50w Syringe) 50 ml Q15M PRN IV DECREASED GLUCOSE; Start 08/28/17 at 11:30 Glucagon (Glucagen) 1 mg Q15M PRN IM DECREASED GLUCOSE; Start 08/28/17 at 11:30 Glucose (Glutose) 15 gm Q15M PRN BUCCAL DECREASED GLUCOSE; Start 08/28/17 at 11 :30 IV Flush (NS 10 ml) 10 ml PRN PRN IV IV PROTOCOL; Start 08/28/17 at 14:00 Miscellaneous Information (Pending [facility] Order For Wound Care) This patient almanza... PRN PRN XX WOUND CARE; Start 08/28/17 at 23:00 Furosemide (Lasix) 40 mg DAILY IV Last administered on 09/03/17 08:00; Admin Dose 40 MG; Start 08/30/17 at 09:00 Metoprolol Tartrate 25 mg 25 mg BID PO ; Start 08/29/17 at 21:00; Status Future Hold Midazolam HCl 50 ml @ 1 mls/hr TITRATE IV Last administered on 09/03/17 03:28 ; Admin Dose 7 MLS/HR; Start 08/29/17 at 16:00 Meropenem/Sodium Chloride 50 ml @ 100 mls/hr Q8 IVPB Last administered on 06:10; Admin Dose 100 MLS/HR; Start 08/30/17 at 22:00 Total Parenteral Nutrition (Tpn) 1,000 ml @ 50 mls/hr Q20H IV Last administered on 09/03/17 00:58; Admin Dose 50 MLS/HR; Start 08/30/17 at 16:00 Famotidine (Pepcid Iv) 20 mg BID IV Last administered on 09/03/17 08:00; Admin Dose 20 MG; Start 08/31/17 at 09:00 Levothyroxine Sodium (Synthroid Iv) 25 mcg DAILY@06 IV Last administered on 06:09; Admin Dose 25 MCG; Start 08/31/17 at 06:00 Aspirin (Aspirin) 81 mg DAILY AL ; Start 08/31/17 at 09:00; Status Future Hold Diagnostic Test (Pha) (Accu-Chek) 1 ea 02 XX Last administered on 09/03/17 01 :13; Admin Dose 1 EA; Start 09/01/17 at 02:00 Insulin Aspart (Novolog Insulin Pen) NOVOLOG *MODERATE* ALGORI... Q4 SC Last administered on 09/03/17 08:33; Admin Dose 4 UNIT; Start 08/31/17 at 17:00 Methylprednisolone Sodium Succinate (Solu-Medrol) 40 mg BID IV ; Start at 21:00 Assessment/Plan Chief Complaint/Hosp Course SUBJECTIVE: The patient remains intubated, off sedation, unresponsive. Looks comfortable MICROBIOLOGY: Cultures negative. ANTIMICROBIALS: [place] INDWELLINGS: Endotracheal tube, NG tube, [place] catheter, PICC line. PHYSICAL EXAMINATION: GENERAL: Obese, well-developed, middle-aged, man who is in no distress. HEENT: Head atraumatic, normocephalic. Sclerae anicteric. Buccal mucosa dry. NECK: Supple. CHEST: Rise symmetrical. Breath sounds diminished to bases. HEART: S1, S2. ABDOMEN: Soft. Bowel tones hypoactive. EXTREMITIES: With bilateral edema. ASSESSMENT: 1. S/p sepsis with shock. 2. Anoxic encephalopathy status post cardiopulmonary arrest. 3. S/p aspiration pneumonia. 4. Acute respiratory failure. 5. Seizure disorder. 6. Coagulase-negative Staphylococcus bacteremia on admission consistent with contaminant. 7. Diabetes. 8. Polycythemia. PLAN: The patient remains unchanged. Continue present care, pending family conference, prognosis poor DW staff Problems: BEKA WATKINS NP Sep 03, 2017 12:10
[2017-09-03] MEDS: ACETAMINOPHEN 650 MG SUPP PR PRN (20:00)
[2017-09-03] MEDS: hydrALAzine 20 MG INJ IV PRN (20:05)
[2017-09-03] MEDS: METHYLPREDNISOLONE 40 MG INJ IV SCH (20:36)
[2017-09-03] MEDS: LORAZEPAM 2 MG INJ IV PRN (22:14)
[2017-09-03] MEDS: morphine 2 MG INJ IV PRN (22:18)
[2017-09-04] VITALS (38 sets, daily range): BP systolic 124–180; BP diastolic 66–114; PULSE 88–121; RESP 18–37
[2017-09-04] MEDS: LORAZEPAM 2 MG INJ IV PRN (00:02)
[2017-09-04] MEDS: ALBUTEROL HFA 8 GM INHALER INH SCH ×6 (01:08→20:05)
[2017-09-04] MEDS: IPRATROPIUM (HFA) 12.9 GM INHALER INH SCH ×6 (01:08→20:05)
[2017-09-04] MEDS: ACCU-CHEK XX SCH (01:59)
[2017-09-04] MEDS: INSULIN ASPART [NOVOLOG] 3 ML PEN SC SCH ×6 (01:59→21:12)
[2017-09-04] MEDS: OCULAR LUBRICANT 3.5 GM OPH OINT BOTH EYES SCH ×3 (05:36→17:09)
[2017-09-04] MEDS: ARTIFICIAL TEARS 15 ML OPH BOTH EYES SCH ×3 (05:36→17:08)
[2017-09-04] MEDS: MEROPENEM 1 GM/50ML(PMX) 50 ML IVPB SCH (05:37)
[2017-09-04] MEDS: LEVOTHYROXINE 100 MCG VIAL IV SCH (05:39)
[2017-09-04 06:05] LABS: ABNORMAL IP MESSAGE 1; BASOPHILS % 0.1 % (0.0-2.0); EOSINOPHILS % 0.3 % (0.0-7.0); LYMPHOCYTES # 0.5 10^3/ul (0.8-2.9); LYMPHOCYTES % 3.9 % (15.0-51.0); MEAN CORPUSCULAR HEMOGLOBIN 27.4 pg (29.0-33.0); MEAN CORPUSCULAR HGB CONC 30.4 g/dl (32.0-37.0); MEAN CORPUSCULAR VOLUME 90.3 fl (82.0-101.0); MEAN PLATELET VOLUME 9.7 fl (7.4-10.4); MONOCYTE # 0.7 10^3/ul (0.3-0.9); MONOCYTES % 4.9 % (0.0-11.0); NEUTROPHIL # 12.1 10^3/ul (1.6-7.5); NEUTROPHILS % 90.3 % (39.0-77.0); PLATELET COUNT 302 10^3/UL (140-415); POSITIVE DIFF @See below; RED CELL DISTRIBUTION WIDTH 18.6 % (11.5-14.5); WHITE BLOOD COUNT 13.4 10^3/ul (4.8-10.8)
[2017-09-04 06:25] LABS: ALBUMIN 2.7 g/dl (3.3-4.9); ALBUMIN/GLOBULIN RATIO 0.84; BILIRUBIN,DIRECT 0.3 mg/dl (0.00-0.20); BILIRUBIN,INDIRECT 1.6 mg/dl (0-1.1); BILIRUBIN,TOTAL 1.9 mg/dl (0.2-1.3); CALCIUM 8.9 mg/dl (8.4-10.2); CREATININE 0.71 mg/dl (0.61-1.24); POTASSIUM 3.5 mmol/L (3.5-5.1); TOTAL PROTEIN 5.9 g/dl (6.1-8.1)
[2017-09-04] MEDS: LEVETIRACETAM 500 MG (PMX) 100 ML IVPB SCH (08:34)
[2017-09-04] MEDS: FUROSEMIDE 40 MG INJ IV SCH (08:34)
[2017-09-04] MEDS: FAMOTIDINE 20 MG INJ IV SCH ×2 (08:34→20:52)
[2017-09-04] MEDS: METHYLPREDNISOLONE 40 MG INJ IV SCH ×2 (08:34→20:52)
[2017-09-04] MEDS: INSULIN GLARGINE [LANtus] 3 ML PEN SC SCH (08:35)
[2017-09-04] MEDS: ENOXAPARIN 40 MG/0.4 ML SYG SC SCH (08:35)
[2017-09-04] MEDS ORDERED: ALTEPLASE (CATHFLO) 2 MG INJ CATHETER ONE (09:00)
[2017-09-04] MEDS ORDERED: POTASSIUM CHLORIDE 250 ML IVPB ONE (09:00)
--- NOTE | 2017-09-04 09:02 | PN ---
Date/Time of Note Date/Time of Note DATE: 09/04/17 TIME: 08:57 Assessment/Plan VTE Prophylaxis VTE Prophylaxis Intervention: LMWH Lines/Catheters IV Catheter Type (from Nrs): PICC Line Central line still needed: Yes Urinary Cath still in place: Yes Reason Cath still needed: urinary retention Assessment/Plan Chief Complaint/Hosp Course 36 y/o # s/p Cardiopulmonary arrest--? aspiration, CT head negative, ECHO no wall motion abnormalities, CTPA negative for PE # Severe anoxic encephalopathy on vent s/p EEG X3 and followed by Neuro # Aspiration pneumonia. # Acute respiratory failure on vent 100%>80% with hypoxia and high PEEP # hx Seizure disorder. # Coagulase-negative Staphylococcus bacteremia on admission consistent with contaminant. # Diabetes. 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 Plan - c/w ofF sedation, monitor neuro response - Mechanical ventilation per Pulmonary - Keppra per Neuro - TPN for feeding - Solumedrol per pulmonary - on iv meropenam - c/w iv lasix - c/w levothyroxine - c/w pepcid and lovenox - iv KCL - Chest Xray Problems: Subjective 24 Hr Interval Summary Free Text/Dictation Off sedation, Pupils more reactive today Still high PEEP and FIO2 Exam/Review of Systems Vital Signs Vitals Vital Signs Date Time Temp Pulse Resp B/P Pulse Ox O2 Delivery O2 Flow Rate FiO2 09/04/17 08:00 99.1 100 31 126/82 90 Mechanical Ventilator 09/04/17 05:09 30 Intake and Output 09/03/17 09/03/17 09/04/17 15:00 23:00 07:00 Intake Total 884 ml 650 ml 400 ml Output Total 2093 ml 1662 ml 570 ml Balance -1209 ml -1012 ml -170 ml Exam Gen: Unresponsive to verbal commands, slight movement on heavy sternal rub, pupils 4-5 mm HEENT: Blood shot eyes Neck:thick Lungs: decreased breath sounds b/l Abdomen: distended, soft Ext +edema Fagan Picc line Results Result Diagram: 09/04/1751109/04/17511 Results 24 hrs Laboratory Tests Test 09/03/17 12:47 09/03/17 16:54 09/03/17 20:38 09/04/17 01:55 Bedside Glucose 221 H 200 150 190 Test 09/04/17 05:12 09/04/17 05:32 09/04/17 08:33 White Blood Count 13.4 H Red Blood Count 6.20 H Hemoglobin 17.0 Hematocrit 56.0 H Mean Corpuscular Volume 90.3 Mean Corpuscular Hemoglobin 27.4 L Mean Corpuscular Hemoglobin Concent 30.4 L Red Cell Distribution Width 18.6 H Platelet Count 302 Mean Platelet Volume 9.7 Neutrophils % 90.3 H Lymphocytes % 3.9 L Monocytes % 4.9 Eosinophils % 0.3 Basophils % 0.1 Nucleated Red Blood Cells % 0.0 Neutrophils # 12.1 H Lymphocytes # 0.5 L Monocytes # 0.7 Eosinophils # 0.0 Basophils # 0.0 Nucleated Red Blood Cells # 0.0 Sodium Level 147 H Potassium Level 3.5 Chloride Level 107 Carbon Dioxide Level 34 H Anion Gap 10 Blood Urea Nitrogen 37 H Creatinine 0.71 Glucose Level 194 Calcium Level 8.9 Total Bilirubin 1.9 H Direct Bilirubin 0.30 H Indirect Bilirubin 1.6 H Aspartate Amino Transf (AST/SGOT) 57 H Alanine Aminotransferase (ALT/SGPT) 106 H Alkaline Phosphatase 33 L Total Protein 5.9 L Albumin 2.7 L Globulin 3.20 Albumin/Globulin Ratio 0.84 Bedside Glucose 175 145 Medications Medications Current Medications Flumazenil (Romazicon) 0.2 mg Q1M PRN IV BENZODIAZEPINE OVERDOSE; Start at 07:30 Naloxone HCl (Narcan) 0.4 mg Q3M PRN IV DECREASED REPIRATORY RATE; Start at 07:30 Ondansetron HCl (Zofran Inj) 4 mg Q6H PRN IV NAUSEA AND/OR VOMITING; Start 08/24/17 at 07:30 Nitroglycerin (Nitroglycerin (Sl Tab) 0.4 Mg) 1 tab Q5M PRN SL CHEST PAIN; Start 08/24/17 at 07:30 Acetaminophen (Tylenol Liquid) 650 mg Q6H PRN PO PAIN LEVEL 1-3 OR FEVER; Start 08/24/17 at 07:30 Acetaminophen (Tylenol Tab) 650 mg Q6H PRN PO PAIN LEVEL 1-3 OR FEVER Last administered on 08/29/17t 14:02; Admin Dose 650 MG; Start 08/24/17 at 07:30 Acetaminophen (Tylenol Supp) [address] PAIN LEVEL 1-3 OR TEMP > 37C Last administered on 09/03/17 20:00; Admin Dose 650 MG; Start 08/24/17 at 07: 30 Ibuprofen (Motrin) 600 mg Q6H PRN PO PAIN LEVEL 1-3 OR FEVER; Start 08/24/17 at 07:30 Acetaminophen/ Hydrocodone Bitart ([place] (5/325)) 1 tab Q6H PRN PO PAIN LEVEL 4 -6; Start 08/24/17 at 07:30 Morphine Sulfate (morphine) 2 mg Q4H PRN IV PAIN LEVEL 7-10 Last administered on 09/03/17 22:18; Admin Dose 2 MG; Start 08/24/17 at 07:30 Lorazepam (Ativan) 1 mg Q2H PRN IV ANXIETY Last administered on 09/04/17 00: 02; Admin Dose 1 MG; Start 08/24/17 at 07:30 Docusate Sodium (Colace) 100 mg Q12H PRN PO CONSTIPATION; Start 08/24/17 at 07: 30 Magnesium Hydroxide (Milk Of Mag) 30 ml DAILY PRN PO CONSTIPATION; Start at 07:30 Bisacodyl (Dulcolax) 5 mg DAILY PRN PO CONSTIPATION; Start 08/24/17 at 07:30 Bisacodyl (Dulcolax Supp) [address] CONSTIPATION; Start 08/24/17 at 07 :30 Sodium Biphosphate/ Sodium Phosphate (Fleet Enema) [address] CONSTIPATION; Start 08/24/17 at 07:30 Enoxaparin Sodium (Lovenox) 40 mg DAILY SC Last administered on 09/04/17 08: 35; Admin Dose 40 MG; Start 08/24/17 at 09:00 Hydralazine HCl (Apresoline) 10 mg Q6H PRN IV ELEVATED BLOOD PRESSURE Last administered on 09/03/17 20:05; Admin Dose 10 MG; Start 08/24/17 at 15:30 Meperidine HCl (Demerol) 12.5 mg Q4H PRN IV POST OPERATIVE SHIVERING; Start at 18:30 Meperidine HCl (Demerol) 25 mg Q4H PRN IV POST OPERATIVE SHIVERING; Start 08/24 at 18:30 Eye Lubricant (Akwa Oint) 1 applic Q6 BOTH EYES Last administered on 05:36; Admin Dose 1 APPLIC; Start 08/24/17 at 18:30 Eye Lubricant 2 drop 2 drop Q6 BOTH EYES Last administered on 09/04/17 05:36 ; Admin Dose 2 DROP; Start 08/24/17 at 18:30 Levetiracetam 100 ml @ 400 mls/hr Q12 IVPB Last administered on 09/04/17 08: 34; Admin Dose 400 MLS/HR; Start 08/25/17 at 10:00 Norepinephrine 16 mg/Dextrose 500 ml @ 1.87 mls/hr TITRATE IV Last administered on 08/26/17 14:32; Admin Dose 22.5 MLS/HR; Start 08/26/17 at 13:30 Fentanyl (Sublimaze) 100 ml @ 2.5 mls/hr TITRATE IV Last administered on 09/02 22:53; Admin Dose 10 MLS/HR; Start 08/27/17 at 09:30 Insulin Glargine (Lantus) 15 unit DAILY@08 SC Last administered on 09/04/17 08:35; Admin Dose 15 UNIT; Start 08/27/17 at 13:00 Miscellaneous Information 1 ea NOTE XX ; Start 08/28/17 at 11:30 Glucose (Glutose) 15 gm Q15M PRN PO DECREASED GLUCOSE; Start 08/28/17 at 11:30 Glucose (Glutose) 22.5 gm Q15M PRN PO DECREASED GLUCOSE; Start 08/28/17 at 11: 30 Dextrose (D50w Syringe) 25 ml Q15M PRN IV DECREASED GLUCOSE; Start 08/28/17 at 11:30 Dextrose (D50w Syringe) 50 ml Q15M PRN IV DECREASED GLUCOSE; Start 08/28/17 at 11:30 Glucagon (Glucagen) 1 mg Q15M PRN IM DECREASED GLUCOSE; Start 08/28/17 at 11:30 Glucose (Glutose) 15 gm Q15M PRN BUCCAL DECREASED GLUCOSE; Start 08/28/17 at 11 :30 IV Flush (NS 10 ml) 10 ml PRN PRN IV IV PROTOCOL; Start 08/28/17 at 14:00 Miscellaneous Information (Pending [facility] Order For Wound Care) This patient almanza... PRN PRN XX WOUND CARE; Start 08/28/17 at 23:00 Furosemide (Lasix) 40 mg DAILY IV Last administered on 09/04/17 08:34; Admin Dose 40 MG; Start 08/30/17 at 09:00 Metoprolol Tartrate 25 mg 25 mg BID PO ; Start 08/29/17 at 21:00; Status Future Hold Midazolam HCl 50 ml @ 1 mls/hr TITRATE IV Last administered on 09/03/17 03:28 ; Admin Dose 7 MLS/HR; Start 08/29/17 at 16:00 Meropenem/Sodium Chloride 50 ml @ 100 mls/hr Q8 IVPB Last administered on 05:37; Admin Dose 100 MLS/HR; Start 08/30/17 at 22:00 Total Parenteral Nutrition (Tpn) 1,000 ml @ 50 mls/hr Q20H IV Last administered on 09/03/17 20:06; Admin Dose 50 MLS/HR; Start 08/30/17 at 16:00 Famotidine (Pepcid Iv) 20 mg BID IV Last administered on 09/04/17 08:34; Admin Dose 20 MG; Start 08/31/17 at 09:00 Levothyroxine Sodium (Synthroid Iv) 25 mcg DAILY@06 IV Last administered on 05:39; Admin Dose 25 MCG; Start 08/31/17 at 06:00 Aspirin (Aspirin) [address] ; Start 08/31/17 at 09:00; Status Future Hold Diagnostic Test (Pha) (Accu-Chek) 1 ea 02 XX Last administered on 09/04/17 01 :59; Admin Dose 1 EA; Start 09/01/17 at 02:00 Insulin Aspart (Novolog Insulin Pen) NOVOLOG *MODERATE* ALGORI... Q4 SC Last administered on 09/04/17 08:36; Admin Dose 2 UNIT; Start 08/31/17 at 17:00 Methylprednisolone Sodium Succinate 40 mg 40 mg BID IV Last administered on 08:34; Admin Dose 40 MG; Start 09/03/17 at 21:00 Potassium Chloride (KCl 40 MEQ/250 ML NS) 250 ml @ 62.5 mls/hr ONCE ONCE IVPB ; Start 09/04/17 at 09:00; Stop 09/04/17 at 12:59; Status UNV Alteplase, Recombinant (Cathflo (Activase)) 2 mg ONCE ONCE CATHETER ; Start at 09:00; Stop 09/04/17 at 09:01; Status UNV Metoprolol Tartrate (Lopressor) 25 mg DAILY PO ; Start 09/04/17 at 09:00; Status UNV ELMER RAE MD Sep 04, 2017 09:02
--- NOTE | 2017-09-04 09:55 | CONS ---
Date/Time of Note Date/Time of Note DATE: 09/04/17 TIME: 09:53 Consult Date/Type/Reason Admit Date/Time Aug 24, 2017 at 07:05 Initial Consult Date 08/27/17 Type of Consultation: Pulmonary Ordering Provider: MIKE LUONG MD Subjective Patient comfortable. Off sedation. No seizure activity. Eyes open but not following commands. No vasopressors. Increased FiO2. Continues TPN. Objective Vital Signs Date Time Temp Pulse Resp B/P Pulse Ox O2 Delivery O2 Flow Rate FiO2 09/04/17 09:00 112 37 146/90 90 Mechanical Ventilator 09/04/17 08:00 99.1 09/04/17 05:09 30 Intake and Output 09/03/17 09/03/17 09/04/17 15:00 23:00 07:00 Intake Total 884 ml 650 ml 400 ml Output Total 2093 ml 1662 ml 570 ml Balance -1209 ml -1012 ml -170 ml Exam PHYSICAL EXAMINATION: GENERAL: Well-nourished well-developed gentleman comfortable at rest on mechanical ventilation. VITAL SIGNS: NECK: Supple, no JVD or lymphadenopathy. CARDIAC: S1, S2, no added sounds or murmurs. CHEST: Diminished air entry bilaterally. ABDOMEN: Soft, nontender. No guarding or rebound. EXTREMITIES: No cyanosis, clubbing, 1+ edema. NEUROLOGIC: Vegetative state. Results/Medications Result Diagram: 09/04/1712 09/04/17 0512 Results 24 hrs Laboratory Tests Test 09/03/17 12:47 09/03/17 16:54 09/03/17 20:38 09/04/17 01:55 Bedside Glucose 221 H 200 150 190 Test 09/04/17 05:12 09/04/17 05:32 09/04/17 08:33 White Blood Count 13.4 H Red Blood Count 6.20 H Hemoglobin 17.0 Hematocrit 56.0 H Mean Corpuscular Volume 90.3 Mean Corpuscular Hemoglobin 27.4 L Mean Corpuscular Hemoglobin Concent 30.4 L Red Cell Distribution Width 18.6 H Platelet Count 302 Mean Platelet Volume 9.7 Neutrophils % 90.3 H Lymphocytes % 3.9 L Monocytes % 4.9 Eosinophils % 0.3 Basophils % 0.1 Nucleated Red Blood Cells % 0.0 Neutrophils # 12.1 H Lymphocytes # 0.5 L Monocytes # 0.7 Eosinophils # 0.0 Basophils # 0.0 Nucleated Red Blood Cells # 0.0 Sodium Level 147 H Potassium Level 3.5 Chloride Level 107 Carbon Dioxide Level 34 H Anion Gap 10 Blood Urea Nitrogen 37 H Creatinine 0.71 Glucose Level 194 Calcium Level 8.9 Total Bilirubin 1.9 H Direct Bilirubin 0.30 H Indirect Bilirubin 1.6 H Aspartate Amino Transf (AST/SGOT) 57 H Alanine Aminotransferase (ALT/SGPT) 106 H Alkaline Phosphatase 33 L Total Protein 5.9 L Albumin 2.7 L Globulin 3.20 Albumin/Globulin Ratio 0.84 Bedside Glucose 175 145 Medications Current Medications Flumazenil (Romazicon) 0.2 mg Q1M PRN IV BENZODIAZEPINE OVERDOSE; Start at 07:30 Naloxone HCl (Narcan) 0.4 mg Q3M PRN IV DECREASED REPIRATORY RATE; Start at 07:30 Ondansetron HCl (Zofran Inj) 4 mg Q6H PRN IV NAUSEA AND/OR VOMITING; Start 08/24/17 at 07:30 Nitroglycerin (Nitroglycerin (Sl Tab) 0.4 Mg) 1 tab Q5M PRN SL CHEST PAIN; Start 08/24/17 at 07:30 Acetaminophen (Tylenol Liquid) 650 mg Q6H PRN PO PAIN LEVEL 1-3 OR FEVER; Start 08/24/17 at 07:30 Acetaminophen (Tylenol Tab) 650 mg Q6H PRN PO PAIN LEVEL 1-3 OR FEVER Last administered on 08/29/17 14:02; Admin Dose 650 MG; Start 08/24/17 at 07:30 Acetaminophen (Tylenol Supp) 650 mg Q4H PRN [place] PAIN LEVEL 1-3 OR TEMP > 37C Last administered on 09/03/17 20:00; Admin Dose 650 MG; Start 08/24/17 at 07: 30 Ibuprofen (Motrin) 600 mg Q6H PRN PO PAIN LEVEL 1-3 OR FEVER; Start 08/24/17 at 07:30 Acetaminophen/ Hydrocodone Bitart ([place] (5/325)) 1 tab Q6H PRN PO PAIN LEVEL 4 -6; Start 08/24/17 at 07:30 Morphine Sulfate (morphine) 2 mg Q4H PRN IV PAIN LEVEL 7-10 Last administered on 09/03/17 22:18; Admin Dose 2 MG; Start 08/24/17 at 07:30 Lorazepam (Ativan) 1 mg Q2H PRN IV ANXIETY Last administered on 09/04/17 00: 02; Admin Dose 1 MG; Start 08/24/17 at 07:30 Docusate Sodium (Colace) 100 mg Q12H PRN PO CONSTIPATION; Start 08/24/17 at 07: 30 Magnesium Hydroxide (Milk Of Mag) 30 ml DAILY PRN PO CONSTIPATION; Start at 07:30 Bisacodyl (Dulcolax) 5 mg DAILY PRN PO CONSTIPATION; Start 08/24/17 at 07:30 Bisacodyl (Dulcolax Supp) 10 mg DAILY PRN [place] CONSTIPATION; Start 08/24/17 at 07 :30 Sodium Biphosphate/ Sodium Phosphate (Fleet Enema) 133 ml DAILY PRN [place] CONSTIPATION; Start 08/24/17 at 07:30 Enoxaparin Sodium (Lovenox) 40 mg DAILY SC Last administered on 09/04/17 08: 35; Admin Dose 40 MG; Start 08/24/17 at 09:00 Hydralazine HCl (Apresoline) 10 mg Q6H PRN IV ELEVATED BLOOD PRESSURE Last administered on 09/03/17 20:05; Admin Dose 10 MG; Start 08/24/17 at 15:30 Meperidine HCl (Demerol) 12.5 mg Q4H PRN IV POST OPERATIVE SHIVERING; Start at 18:30 Meperidine HCl (Demerol) 25 mg Q4H PRN IV POST OPERATIVE SHIVERING; Start 08/24 at 18:30 Eye Lubricant (Akwa Oint) 1 applic Q6 BOTH EYES Last administered on 05:36; Admin Dose 1 APPLIC; Start 08/24/17 at 18:30 Eye Lubricant 2 drop 2 drop Q6 BOTH EYES Last administered on 09/04/17 05:36 ; Admin Dose 2 DROP; Start 08/24/17 at 18:30 Levetiracetam 100 ml @ 400 mls/hr Q12 IVPB Last administered on 09/04/17 08: 34; Admin Dose 400 MLS/HR; Start 08/25/17 at 10:00 Norepinephrine 16 mg/Dextrose 500 ml @ 1.87 mls/hr TITRATE IV Last administered on 08/26/17 14:32; Admin Dose 22.5 MLS/HR; Start 08/26/17 at 13:30 Fentanyl (Sublimaze) 100 ml @ 2.5 mls/hr TITRATE IV Last administered on 09/02 22:53; Admin Dose 10 MLS/HR; Start 08/27/17 at 09:30 Insulin Glargine (Lantus) 15 unit DAILY@08 SC Last administered on 09/04/17 08:35; Admin Dose 15 UNIT; Start 08/27/17 at 13:00 Miscellaneous Information 1 ea NOTE XX ; Start 08/28/17 at 11:30 Glucose (Glutose) 15 gm Q15M PRN PO DECREASED GLUCOSE; Start 08/28/17 at 11:30 Glucose (Glutose) 22.5 gm Q15M PRN PO DECREASED GLUCOSE; Start 08/28/17 at 11: 30 Dextrose (D50w Syringe) 25 ml Q15M PRN IV DECREASED GLUCOSE; Start 08/28/17 at 11:30 Dextrose (D50w Syringe) 50 ml Q15M PRN IV DECREASED GLUCOSE; Start 08/28/17 at 11:30 Glucagon (Glucagen) 1 mg Q15M PRN IM DECREASED GLUCOSE; Start 08/28/17 at 11:30 Glucose (Glutose) 15 gm Q15M PRN BUCCAL DECREASED GLUCOSE; Start 08/28/17 at 11 :30 IV Flush (NS 10 ml) 10 ml PRN PRN IV IV PROTOCOL; Start 08/28/17 at 14:00 [facility]iscellaneous [facility] This patient almanza... PRN PRN XX WOUND CARE; Start 08/28/17 at 23:00 Furosemide 40 mg 40 mg DAILY IV Last administered on 09/04/17 08:34; Admin Dose 40 MG; Start 08/30/17 at 09:00 Midazolam HCl 50 ml @ 1 mls/hr TITRATE IV Last administered on 09/03/17 03:28 ; Admin Dose 7 MLS/HR; Start 08/29/17 at 16:00 Meropenem/Sodium Chloride 50 ml @ 100 mls/hr Q8 IVPB Last administered on 05:37; Admin Dose 100 MLS/HR; Start 08/30/17 at 22:00 Total Parenteral Nutrition (Tpn) 1,000 ml @ 50 mls/hr Q20H IV Last administered on 09/03/17 20:06; Admin Dose 50 MLS/HR; Start 08/30/17 at 16:00 Famotidine (Pepcid Iv) 20 mg BID IV Last administered on 09/04/17 08:34; Admin Dose 20 MG; Start 08/31/17 at 09:00 Levothyroxine Sodium (Synthroid Iv) 25 mcg DAILY@06 IV Last administered on 05:39; Admin Dose 25 MCG; Start 08/31/17 at 06:00 Aspirin (Aspirin) 81 mg DAILY [place] ; Start 08/31/17 at 09:00; Status Future Hold Diagnostic Test (Pha) (Accu-Chek) 1 ea 02 XX Last administered on 09/04/17 01 :59; Admin Dose 1 EA; Start 09/01/17 at 02:00 Insulin Aspart (Novolog Insulin Pen) NOVOLOG *MODERATE* [place]I... Q4 SC Last administered on 09/04/17 08:36; Admin Dose 2 UNIT; Start 08/31/17 at 17:00 Methylprednisolone Sodium Succinate 40 mg 40 mg BID IV Last administered on 08:34; Admin Dose 40 MG; Start 09/03/17 at 21:00 Potassium Chloride (KCl 40 MEQ/250 ML NS) 250 ml @ 62.5 mls/hr ONCE ONCE IVPB ; Start 09/04/17 at 09:00; Stop 09/04/17 at 12:59 Metoprolol Tartrate (Lopressor) 25 mg DAILY PO ; Start 09/04/17 at 09:00 Assessment/Plan Chief Complaint/Hosp Course IMP: 1. s/p Cardiopulmonary arrest--likely due to aspiration and central airway obstruction 2. Seizure Disorder currently no evidence of seizure activity 3. Gram + bacteremia--likely contaminant 4. Probable significant anoxic brain injury 5. CAP vs. aspiration, component of pulmonary edema. 6. Morbid obesity 7. DM RECS: 1. Continue mechanical ventilation for weaning, decrease FiO2 and PEEP as tolerated. Currently on volume control ventilation. 2. Anti-epileptic Rx hold off sedation 3. Trial of nasogastric tube feeding 4. Abx 5. F/U Cx's 6. DVT and GI prophylaxis 7. EEG and neuro recommendations. 8. Steroid taper 35 min cc time Extensive discussion with multiple family members yesterday. Explained current condition and likely poor prognosis. We decided to monitor the patient for the next 24 hours off sedation to see if there is any change in his neurological status. Will readdress goals of care at this time. Family leaning towards comfort measures. Problems: JULIANA WASHINGTON MD, [facility] Sep 04, 2017 09:55
--- NOTE | 2017-09-04 10:42 | CONS ---
Date/Time of Note Date/Time of Note DATE: 09/04/17 TIME: 10:41 Assessment/Plan Assessment/Plan Additional Assessment/Plan NO acute events - family meeting held Sunday - con't care for now. Consultation Date/Type/Reason Admit Date/Time Aug 24, 2017 at 07:05 Initial Consult Date 08/27/17 Type of Consultation: Pulmonary Referring Provider: MIKE LUONG MD Exam/Review of Systems Vital Signs Vitals Vital Signs Date Time Temp Pulse Resp B/P Pulse Ox O2 Delivery O2 Flow Rate FiO2 09/04/17 09:00 112 37 146/90 90 Mechanical Ventilator 09/04/17 08:00 99.1 09/04/17 05:09 30 Intake and Output 09/03/17 09/03/17 09/04/17 15:00 23:00 07:00 Intake Total 884 ml 650 ml 400 ml Output Total 2093 ml 1662 ml 570 ml Balance -1209 ml -1012 ml -170 ml Results Result Diagram: 09/04/1712 09/04/1712 Results 24 hrs Laboratory Tests Test 09/03/17 12:47 09/03/17 16:54 09/03/17 20:38 09/04/17 01:55 Bedside Glucose 221 H 200 150 190 Test 09/04/17 05:12 09/04/17 05:32 09/04/17 08:33 White Blood Count 13.4 H Red Blood Count 6.20 H Hemoglobin 17.0 Hematocrit 56.0 H Mean Corpuscular Volume 90.3 Mean Corpuscular Hemoglobin 27.4 L Mean Corpuscular Hemoglobin Concent 30.4 L Red Cell Distribution Width 18.6 H Platelet Count 302 Mean Platelet Volume 9.7 Neutrophils % 90.3 H Lymphocytes % 3.9 L Monocytes % 4.9 Eosinophils % 0.3 Basophils % 0.1 Nucleated Red Blood Cells % 0.0 Neutrophils # 12.1 H Lymphocytes # 0.5 L Monocytes # 0.7 Eosinophils # 0.0 Basophils # 0.0 Nucleated Red Blood Cells # 0.0 Sodium Level 147 H Potassium Level 3.5 Chloride Level 107 Carbon Dioxide Level 34 H Anion Gap 10 Blood Urea Nitrogen 37 H Creatinine 0.71 Glucose Level 194 Calcium Level 8.9 Total Bilirubin 1.9 H Direct Bilirubin 0.30 H Indirect Bilirubin 1.6 H Aspartate Amino Transf (AST/SGOT) 57 H Alanine Aminotransferase (ALT/SGPT) 106 H Alkaline Phosphatase 33 L Total Protein 5.9 L Albumin 2.7 L Globulin 3.20 Albumin/Globulin Ratio 0.84 Bedside Glucose 175 145 Medications Medications Current Medications Flumazenil (Romazicon) 0.2 mg Q1M PRN IV BENZODIAZEPINE OVERDOSE; Start at 07:30 Naloxone HCl (Narcan) 0.4 mg Q3M PRN IV DECREASED REPIRATORY RATE; Start at 07:30 Ondansetron HCl (Zofran Inj) 4 mg Q6H PRN IV NAUSEA AND/OR VOMITING; Start 08/24/17 at 07:30 Nitroglycerin (Nitroglycerin (Sl Tab) 0.4 Mg) 1 tab Q5M PRN SL CHEST PAIN; Start 08/24/17 at 07:30 Acetaminophen (Tylenol Liquid) 650 mg Q6H PRN PO PAIN LEVEL 1-3 OR FEVER; Start 08/24/17 at 07:30 Acetaminophen (Tylenol Tab) 650 mg Q6H PRN PO PAIN LEVEL 1-3 OR FEVER Last administered on 08/29/17 14:02; Admin Dose 650 MG; Start 08/24/17 at 07:30 Acetaminophen (Tylenol Supp) 650 mg Q4H PRN [place] PAIN LEVEL 1-3 OR TEMP > 37C Last administered on 09/03/17 20:00; Admin Dose 650 MG; Start 08/24/17 at 07: 30 Ibuprofen (Motrin) 600 mg Q6H PRN PO PAIN LEVEL 1-3 OR FEVER; Start 08/24/17 at 07:30 Acetaminophen/ Hydrocodone Bitart ([place] (5/325)) 1 tab Q6H PRN PO PAIN LEVEL 4 -6; Start 08/24/17 at 07:30 Morphine Sulfate (morphine) 2 mg Q4H PRN IV PAIN LEVEL 7-10 Last administered on 09/03/17 22:18; Admin Dose 2 MG; Start 08/24/17 at 07:30 Lorazepam (Ativan) 1 mg Q2H PRN IV ANXIETY Last administered on 09/04/17 00: 02; Admin Dose 1 MG; Start 08/24/17 at 07:30 Docusate Sodium (Colace) 100 mg Q12H PRN PO CONSTIPATION; Start 08/24/17 at 07: 30 Magnesium Hydroxide (Milk Of Mag) 30 ml DAILY PRN PO CONSTIPATION; Start at 07:30 Bisacodyl (Dulcolax) 5 mg DAILY PRN PO CONSTIPATION; Start 08/24/17 at 07:30 Bisacodyl (Dulcolax Supp) 10 mg DAILY PRN [place] CONSTIPATION; Start 08/24/17 at 07 :30 Sodium Biphosphate/ Sodium Phosphate (Fleet Enema) 133 ml DAILY PRN [place] CONSTIPATION; Start 08/24/17 at 07:30 Enoxaparin Sodium (Lovenox) 40 mg DAILY SC Last administered on 09/04/17 08: 35; Admin Dose 40 MG; Start 08/24/17 at 09:00 Hydralazine HCl (Apresoline) 10 mg Q6H PRN IV ELEVATED BLOOD PRESSURE Last administered on 09/03/17 20:05; Admin Dose 10 MG; Start 08/24/17 at 15:30 Meperidine HCl (Demerol) 12.5 mg Q4H PRN IV POST OPERATIVE SHIVERING; Start at 18:30 Meperidine HCl (Demerol) 25 mg Q4H PRN IV POST OPERATIVE SHIVERING; Start 08/24 at 18:30 Eye Lubricant (Akwa Oint) 1 applic Q6 BOTH EYES Last administered on 05:36; Admin Dose 1 APPLIC; Start 08/24/17 at 18:30 Eye Lubricant 2 drop 2 drop Q6 BOTH EYES Last administered on 09/04/17 05:36 ; Admin Dose 2 DROP; Start 08/24/17 at 18:30 Levetiracetam 100 ml @ 400 mls/hr Q12 IVPB Last administered on 09/04/17 08: 34; Admin Dose 400 MLS/HR; Start 08/25/17 at 10:00 Norepinephrine 16 mg/Dextrose 500 ml @ 1.87 mls/hr TITRATE IV Last administered on 08/26/17 14:32; Admin Dose 22.5 MLS/HR; Start 08/26/17 at 13:30 Fentanyl (Sublimaze) 100 ml @ 2.5 mls/hr TITRATE IV Last administered on 09/02 22:53; Admin Dose 10 MLS/HR; Start 08/27/17 at 09:30 Insulin Glargine (Lantus) 15 unit DAILY@08 SC Last administered on 09/04/17 08:35; Admin Dose 15 UNIT; Start 08/27/17 at 13:00 Miscellaneous Information 1 ea NOTE XX ; Start 08/28/17 at 11:30 Glucose (Glutose) 15 gm Q15M PRN PO DECREASED GLUCOSE; Start 08/28/17 at 11:30 Glucose (Glutose) 22.5 gm Q15M PRN PO DECREASED GLUCOSE; Start 08/28/17 at 11: 30 Dextrose (D50w Syringe) 25 ml Q15M PRN IV DECREASED GLUCOSE; Start 08/28/17 at 11:30 Dextrose (D50w Syringe) 50 ml Q15M PRN IV DECREASED GLUCOSE; Start 08/28/17 at 11:30 Glucagon (Glucagen) 1 mg Q15M PRN IM DECREASED GLUCOSE; Start 08/28/17 at 11:30 Glucose (Glutose) 15 gm Q15M PRN BUCCAL DECREASED GLUCOSE; Start 08/28/17 at 11 :30 IV Flush (NS 10 ml) 10 ml PRN PRN IV IV PROTOCOL; Start 08/28/17 at 14:00 Miscellaneous Information (Pending [facility] Order For Wound Care) This patient almanza... PRN PRN XX WOUND CARE; Start 08/28/17 at 23:00 Furosemide 40 mg 40 mg DAILY IV Last administered on 09/04/17 08:34; Admin Dose 40 MG; Start 08/30/17 at 09:00 Midazolam HCl 50 ml @ 1 mls/hr TITRATE IV Last administered on 09/03/17 03:28 ; Admin Dose 7 MLS/HR; Start 08/29/17 at 16:00 Meropenem/Sodium Chloride 50 ml @ 100 mls/hr Q8 IVPB Last administered on 05:37; Admin Dose 100 MLS/HR; Start 08/30/17 at 22:00 Total Parenteral Nutrition (Tpn) 1,000 ml @ 50 mls/hr Q20H IV Last administered on 09/03/17 20:06; Admin Dose 50 MLS/HR; Start 08/30/17 at 16:00 Famotidine (Pepcid Iv) 20 mg BID IV Last administered on 09/04/17 08:34; Admin Dose 20 MG; Start 08/31/17 at 09:00 Levothyroxine Sodium (Synthroid Iv) 25 mcg DAILY@06 IV Last administered on 05:39; Admin Dose 25 MCG; Start 08/31/17 at 06:00 Aspirin (Aspirin) 81 mg DAILY [place] ; Start 08/31/17 at 09:00; Status Future Hold Diagnostic Test (Pha) (Accu-Chek) 1 ea 02 XX Last administered on 09/04/17 01 :59; Admin Dose 1 EA; Start 09/01/17 at 02:00 Insulin Aspart (Novolog Insulin Pen) NOVOLOG *MODERATE* ALGORI... Q4 SC Last administered on 09/04/17 08:36; Admin Dose 2 UNIT; Start 08/31/17 at 17:00 Methylprednisolone Sodium Succinate 40 mg 40 mg BID IV Last administered on 08:34; Admin Dose 40 MG; Start 09/03/17 at 21:00 Potassium Chloride (KCl 40 MEQ/250 ML NS) 250 ml @ 62.5 mls/hr ONCE ONCE IVPB Last administered on 09/04/17 10:24; Admin Dose 62.5 MLS/HR; Start at 09:00; Stop 09/04/17 at 12:59 Metoprolol Tartrate (Lopressor) 25 mg DAILY PO ; Start 09/04/17 at 09:00 TRACY MENDOZA MD Sep 04, 2017 10:42
--- NOTE | 2017-09-04 10:58 | RADRPT ---
PROCEDURE: US Abdomen and Retroperitoneum. CLINICAL INDICATION: Abnormal liver function tests. TECHNIQUE: Multiple real-time longitudinal and transverse images were acquired of the patient's ab domen and retroperitoneum utilizing a curved array transducer. COMPARISON: No prior studies are available for comparison. FINDINGS: The liver is normal in size and normal in echogenicity. The liver has a normal smooth surface. Ther e is a small benign cyst in the left hepatic lobe measuring 0.6 cm. There is no other focal hepatic lesion. Color Doppler and pulsed Doppler sonography demonstrate normal antegrade flow in the portal vein. The gallbladder is normal with no stones or wall thickening. The bile ducts are normal with the common bile duct measuring 3.5 mm in diameter. The spleen is mildly enlarged. There is no focal splenic lesion. The pancreas is partially seen and is unremarkable. There is no free fluid. The right kidney measures 10.9 cm and the left kidney measures 13.0 cm. There is no renal mass. There is no hydronephrosis or calculus. The abdominal aorta is not dilated. The inferior vena cava is unremarkable. IMPRESSION: 1. Small benign cyst in the left hepatic lobe measuring 0.6 cm. 2. Mild splenomegaly. 3. Otherwise normal ultrasound of the abdomen and retroperitoneum. RPTAT: QQ .Niels Stanton MD, MD Date Time Electronically viewed and signed by .Niels Stanton MD, MD on 09/04/2017 10:57 .R/
[2017-09-04] MEDS: METOPROLOL 25 MG TAB PO SCH (11:37)
--- NOTE | 2017-09-04 12:07 | RADRPT ---
PROCEDURE: Chest x-ray CLINICAL INDICATION: Shortness of breath TECHNIQUE: Chest single view COMPARISON: None FINDINGS: There is endotracheal tube which terminate 2.7 cm above the ne[place]. Left arm PICC line is seen with tip at the right atrial SVC junction. Nasogastric tube terminates with tip at the gastroesophageal j unction. Recommend it be advanced 10 cm. Heart is normal in size. There are bilateral perihilar grou nd-glass densities. This may represent edema, pneumonia, or ARDS. The costophrenic angles sharp. IMPRESSION: 1. Endotracheal tube and left arm PICC line in good position. 2. Nasogastric tube terminates at the GE junction level. Recommend it be advanced additional 10 cm. 3. Diffuse bilateral perihilar ground-glass densities. This may represent edema, pneumonia, or ARDS RPTAT: .Ry Parra MD, Date Time Electronically viewed and signed by .Ry Parra MD, on 09/04/2017 12:07 .W/
--- NOTE | 2017-09-04 12:52 | CONS ---
Date/Time of Note Date/Time of Note DATE: 09/04/17 TIME: 12:49 Consult Date/Type/Reason Admit Date/Time Aug 24, 2017 at 07:05 Initial Consult Date 08/27/17 Type of Consultation: ID Ordering Provider: MIKE LUONG MD Objective Vital Signs Date Time Temp Pulse Resp B/P Pulse Ox O2 Delivery O2 Flow Rate FiO2 09/04/17 10:00 106 27 140/87 91 Mechanical Ventilator 09/04/17 08:00 60 09/04/17 08:00 99.1 Intake and Output 09/03/17 09/03/17 09/04/17 14:59 22:59 06:59 Intake Total 901 ml 600 ml 500 ml Output Total 2034 ml 1725 ml 620 ml Balance -1133 ml -1125 ml -120 ml Results/Medications Result Diagram: 09/04/17 0512 09/04/17 0512 Results 24 hrs Laboratory Tests Test 09/03/17 16:54 09/03/17 20:38 09/04/17 01:55 09/04/17 05:12 Bedside Glucose 200 150 190 White Blood Count 13.4 H Red Blood Count 6.20 H Hemoglobin 17.0 Hematocrit 56.0 H Mean Corpuscular Volume 90.3 Mean Corpuscular Hemoglobin 27.4 L Mean Corpuscular Hemoglobin Concent 30.4 L Red Cell Distribution Width 18.6 H Platelet Count 302 Mean Platelet Volume 9.7 Neutrophils % 90.3 H Lymphocytes % 3.9 L Monocytes % 4.9 Eosinophils % 0.3 Basophils % 0.1 Nucleated Red Blood Cells % 0.0 Neutrophils # 12.1 H Lymphocytes # 0.5 L Monocytes # 0.7 Eosinophils # 0.0 Basophils # 0.0 Nucleated Red Blood Cells # 0.0 Sodium Level 147 H Potassium Level 3.5 Chloride Level 107 Carbon Dioxide Level 34 H Anion Gap 10 Blood Urea Nitrogen 37 H Creatinine 0.71 Glucose Level 194 Calcium Level 8.9 Total Bilirubin 1.9 H Direct Bilirubin 0.30 H Indirect Bilirubin 1.6 H Aspartate Amino Transf (AST/SGOT) 57 H Alanine Aminotransferase (ALT/SGPT) 106 H Alkaline Phosphatase 33 L Total Protein 5.9 L Albumin 2.7 L Globulin 3.20 Albumin/Globulin Ratio 0.84 Test 09/04/17 05:32 09/04/17 08:33 Bedside Glucose 175 145 Medications Current Medications Flumazenil (Romazicon) 0.2 mg Q1M PRN IV BENZODIAZEPINE OVERDOSE; Start at 07:30 Naloxone HCl (Narcan) 0.4 mg Q3M PRN IV DECREASED REPIRATORY RATE; Start at 07:30 Ondansetron HCl (Zofran Inj) 4 mg Q6H PRN IV NAUSEA AND/OR VOMITING; Start 08/24/17 at 07:30 Nitroglycerin (Nitroglycerin (Sl Tab) 0.4 Mg) 1 tab Q5M PRN SL CHEST PAIN; Start 08/24/17 at 07:30 Acetaminophen (Tylenol Liquid) 650 mg Q6H PRN PO PAIN LEVEL 1-3 OR FEVER; Start 08/24/17 at 07:30 Acetaminophen (Tylenol Tab) 650 mg Q6H PRN PO PAIN LEVEL 1-3 OR FEVER Last administered on 08/29/17 14:02; Admin Dose 650 MG; Start 08/24/17 at 07:30 Acetaminophen (Tylenol Supp) 650 mg Q4H PRN [place] PAIN LEVEL 1-3 OR TEMP > 37C Last administered on 09/03/17 20:00; Admin Dose 650 MG; Start 08/24/17 at 07: 30 Ibuprofen (Motrin) 600 mg Q6H PRN PO PAIN LEVEL 1-3 OR FEVER; Start 08/24/17 at 07:30 Acetaminophen/ Hydrocodone Bitart ([place] (5/325)) 1 tab Q6H PRN PO PAIN LEVEL 4 -6; Start 08/24/17 at 07:30 Morphine Sulfate (morphine) 2 mg Q4H PRN IV PAIN LEVEL 7-10 Last administered on 09/03/17 22:18; Admin Dose 2 MG; Start 08/24/17 at 07:30 Lorazepam (Ativan) 1 mg Q2H PRN IV ANXIETY Last administered on 09/04/17 00: 02; Admin Dose 1 MG; Start 08/24/17 at 07:30 Docusate Sodium (Colace) 100 mg Q12H PRN PO CONSTIPATION; Start 08/24/17 at 07: 30 Magnesium Hydroxide (Milk Of Mag) 30 ml DAILY PRN PO CONSTIPATION; Start at 07:30 Bisacodyl (Dulcolax) 5 mg DAILY PRN PO CONSTIPATION; Start 08/24/17 at 07:30 Bisacodyl (Dulcolax Supp) 10 mg DAILY PRN [place] CONSTIPATION; Start 08/24/17 at 07 :30 Sodium Biphosphate/ Sodium Phosphate (Fleet Enema) 133 ml DAILY PRN [place] CONSTIPATION; Start 08/24/17 at 07:30 Enoxaparin Sodium (Lovenox) 40 mg DAILY SC Last administered on 09/04/17 08: 35; Admin Dose 40 MG; Start 08/24/17 at 09:00 Hydralazine HCl (Apresoline) 10 mg Q6H PRN IV ELEVATED BLOOD PRESSURE Last administered on 09/03/17 20:05; Admin Dose 10 MG; Start 08/24/17 at 15:30 Meperidine HCl (Demerol) 12.5 mg Q4H PRN IV POST OPERATIVE SHIVERING; Start at 18:30 Meperidine HCl (Demerol) 25 mg Q4H PRN IV POST OPERATIVE SHIVERING; Start 08/24 at 18:30 Eye Lubricant (Akwa Oint) 1 applic Q6 BOTH EYES Last administered on 11:39; Admin Dose 1 APPLIC; Start 08/24/17 at 18:30 Eye Lubricant 2 drop 2 drop Q6 BOTH EYES Last administered on 09/04/17 11:39 ; Admin Dose 2 DROP; Start 08/24/17 at 18:30 Levetiracetam 100 ml @ 400 mls/hr Q12 IVPB Last administered on 09/04/17 08: 34; Admin Dose 400 MLS/HR; Start 08/25/17 at 10:00 Norepinephrine 16 mg/Dextrose 500 ml @ 1.87 mls/hr TITRATE IV Last administered on 08/26/17 14:32; Admin Dose 22.5 MLS/HR; Start 08/26/17 at 13:30 Fentanyl (Sublimaze) 100 ml @ 2.5 mls/hr TITRATE IV Last administered on 09/02 22:53; Admin Dose 10 MLS/HR; Start 08/27/17 at 09:30 Insulin Glargine (Lantus) 15 unit DAILY@08 SC Last administered on 09/04/17 08:35; Admin Dose 15 UNIT; Start 08/27/17 at 13:00 Miscellaneous Information 1 ea NOTE XX ; Start 08/28/17 at 11:30 Glucose (Glutose) 15 gm Q15M PRN PO DECREASED GLUCOSE; Start 08/28/17 at 11:30 Glucose (Glutose) 22.5 gm Q15M PRN PO DECREASED GLUCOSE; Start 08/28/17 at 11: 30 Dextrose (D50w Syringe) 25 ml Q15M PRN IV DECREASED GLUCOSE; Start 08/28/17 at 11:30 Dextrose (D50w Syringe) 50 ml Q15M PRN IV DECREASED GLUCOSE; Start 08/28/17 at 11:30 Glucagon (Glucagen) 1 mg Q15M PRN IM DECREASED GLUCOSE; Start 08/28/17 at 11:30 Glucose (Glutose) 15 gm Q15M PRN BUCCAL DECREASED GLUCOSE; Start 08/28/17 at 11 :30 IV Flush (NS 10 ml) 10 ml PRN PRN IV IV PROTOCOL; Start 08/28/17 at 14:00 Miscellaneous Information (Pending [facility] Order For Wound Care) This patient almanza... PRN PRN XX WOUND CARE; Start 08/28/17 at 23:00 Furosemide 40 mg 40 mg DAILY IV Last administered on 09/04/17 08:34; Admin Dose 40 MG; Start 08/30/17 at 09:00 Midazolam HCl 50 ml @ 1 mls/hr TITRATE IV Last administered on 09/03/17 03:28 ; Admin Dose 7 MLS/HR; Start 08/29/17 at 16:00 Meropenem/Sodium Chloride (Merrem 1 Gm/50 ml (Pmx)) 50 ml @ 100 mls/hr Q8 IVPB Last administered on 09/04/17 05:37; Admin Dose 100 MLS/HR; Start 08/30/17 at 22:00 Famotidine (Pepcid Iv) 20 mg BID IV Last administered on 09/04/17 08:34; Admin Dose 20 MG; Start 08/31/17 at 09:00 Levothyroxine Sodium (Synthroid Iv) 25 mcg DAILY@06 IV Last administered on 05:39; Admin Dose 25 MCG; Start 08/31/17 at 06:00 Aspirin (Aspirin) 81 mg DAILY [place] ; Start 08/31/17 at 09:00; Status Future Hold Diagnostic Test (Pha) (Accu-Chek) 1 ea 02 XX Last administered on 09/04/17 01 :59; Admin Dose 1 EA; Start 09/01/17 at 02:00 Insulin Aspart (Novolog Insulin Pen) NOVOLOG *MODERATE* ALGORI... Q4 SC Last administered on 09/04/17 08:36; Admin Dose 2 UNIT; Start 08/31/17 at 17:00 Methylprednisolone Sodium Succinate 40 mg 40 mg BID IV Last administered on 08:34; Admin Dose 40 MG; Start 09/03/17 at 21:00 Potassium Chloride (KCl 40 MEQ/250 ML NS) 250 ml @ 62.5 mls/hr ONCE ONCE IVPB Last administered on 09/04/17 10:24; Admin Dose 62.5 MLS/HR; Start at 09:00; Stop 09/04/17 at 12:59 Metoprolol Tartrate (Lopressor) 25 mg DAILY PO Last administered on 09/04/17 11:37; Admin Dose 25 MG; Start 09/04/17 at 09:00 Assessment/Plan Chief Complaint/Hosp Course SUBJECTIVE: The patient off sedation, comfortable on vent, unresponsive. Tm 100.4 yesterday MICROBIOLOGY: Cultures negative. ANTIMICROBIALS: Merrem INDWELLINGS: Endotracheal tube, NG tube, [place] catheter, PICC line. PHYSICAL EXAMINATION: GENERAL: Obese, well-developed, middle-aged, man who is in no distress. HEENT: Head atraumatic, normocephalic. Sclerae anicteric. Buccal mucosa dry. NECK: Supple. CHEST: Rise symmetrical. Breath sounds diminished to bases. HEART: S1, S2. ABDOMEN: Soft. Bowel tones hypoactive. EXTREMITIES: With bilateral edema. ASSESSMENT: 1. S/p sepsis with shock. 2. Anoxic encephalopathy status post cardiopulmonary arrest. 3. S/p aspiration pneumonia. 4. Acute respiratory failure. 5. Seizure disorder. 6. Coagulase-negative Staphylococcus bacteremia on admission consistent with contaminant. 7. Diabetes. 8. Polycythemia. PLAN: The patient remains unchanged. Continue present care, monitor mental status, dc abx, repeat cx for t 101. Plan to start TF staff/family Problems: BEKA WATKINS NP Sep 04, 2017 12:52
[2017-09-04] MEDS: ACETAMINOPHEN 650MG/20.3ML CUP PO PRN (14:48)
[2017-09-04] MEDS: hydrALAzine 20 MG INJ IV PRN ×2 (14:55→21:13)
[2017-09-04] MEDS ORDERED: LORAZEPAM 2 MG INJ IV PRN (19:30)
[2017-09-04] MEDS: MIDAZOLAM (DRIP) 50 mg/50 mL 50 ML IV SCH (19:52)
[2017-09-04] MEDS: LEVETIRACETAM IV 750 MG in DEXTROSE 5% 100 ML IVPB SCH (20:53)
[2017-09-04] MEDS: ACETAMINOPHEN 325 MG TAB PO PRN (21:00)
[2017-09-05] VITALS (49 sets, daily range): BP systolic 111–162; BP diastolic 64–104; PULSE 86–125; RESP 23–43
[2017-09-05] MEDS: ARTIFICIAL TEARS 15 ML OPH BOTH EYES SCH ×4 (00:20→17:36)
[2017-09-05] MEDS: OCULAR LUBRICANT 3.5 GM OPH OINT BOTH EYES SCH ×4 (00:20→17:36)
[2017-09-05] MEDS: IPRATROPIUM (HFA) 12.9 GM INHALER INH SCH ×6 (01:37→21:07)
[2017-09-05] MEDS: ALBUTEROL HFA 8 GM INHALER INH SCH ×6 (01:38→21:07)
[2017-09-05] MEDS: ACCU-CHEK XX SCH ×10 (02:06→23:10)
[2017-09-05] MEDS: INSULIN ASPART [NOVOLOG] 3 ML PEN SC SCH ×4 (02:12→12:50)
[2017-09-05] MEDS: hydrALAzine 20 MG INJ IV PRN (02:12)
[2017-09-05 05:52] LABS: BASOPHILS % 0.2 % (0.0-2.0); EOSINOPHILS # 0.4 10^3/ul (0.0-0.5); EOSINOPHILS % 3.4 % (0.0-7.0); HEMATOCRIT 57.2 % (42.0-52.0); HEMOGLOBIN 17.4 g/dl (14.0-18.0); LYMPHOCYTES % 7.8 % (15.0-51.0); MEAN CORPUSCULAR HEMOGLOBIN 27.1 pg (29.0-33.0); MEAN CORPUSCULAR HGB CONC 30.4 g/dl (32.0-37.0); MEAN CORPUSCULAR VOLUME 89.2 fl (82.0-101.0); MEAN PLATELET VOLUME 9.5 fl (7.4-10.4); MONOCYTE # 0.8 10^3/ul (0.3-0.9); MONOCYTES % 6.2 % (0.0-11.0); NEUTROPHIL # 10.5 10^3/ul (1.6-7.5); NEUTROPHILS % 81.9 % (39.0-77.0); PLATELET COUNT 263 10^3/UL (140-415); RED BLOOD COUNT 6.41 10^6/ul (4.70-6.10); RED CELL DISTRIBUTION WIDTH 19.3 % (11.5-14.5); WHITE BLOOD COUNT 12.8 10^3/ul (4.8-10.8)
[2017-09-05] MEDS: LEVOTHYROXINE 100 MCG VIAL IV SCH (06:28)
[2017-09-05 06:45] LABS: CALCIUM 8.6 mg/dl (8.4-10.2); CREATININE 0.76 mg/dl (0.61-1.24); POTASSIUM 3.5 mmol/L (3.5-5.1)
[2017-09-05 08:08] LABS: AADO2 Arterial 495.4 mmHg (7.0-24.0); Allen Test ACCEPTAB; Arterial Base Excess 5.8 mmol/L (-3.0-3); Arterial COHb 0.3 % (0.0-3.0); Arterial Fraction of Oxyhgb 98.2 % (93.0-99.0); Arterial HCO3 29.6 mmol/L (22.0-26.0); Arterial MetHb 0.5 % (0.0-1.5); Arterial Total Hemglobin 19.6 g/dl (12.0-18.0); MODE VENT - AC
--- NOTE | 2017-09-05 08:10 | RADRPT ---
PROCEDURE: XR Chest. CLINICAL INDICATION: Pneumonia, CHF TECHNIQUE: AP Portable chest. COMPARISON: CHEST 09/04/2017; CHEST 08/31/2017 FINDINGS: ET tube, NG tube and left PICC line are unchanged. There are multiple wires overlying the lower ches t. The cardiomediastinal silhouette is within normal limits. There is interval increase bilateral inter stitial opacities, particularly in the right upper lobe. The left pleural effusion is decreased. No pneumothorax is seen. The osseous structures are intact. IMPRESSION: Lines and tubes unchanged. Increase bilateral interstitial infiltrates, pronounced in the right upper lobe. Decrease left pleur al effusion. Physician Mihai Date Time Electronically viewed and signed by Physician Mihai on 09/05/2017 08:10 /
[2017-09-05] MEDS: METHYLPREDNISOLONE 40 MG INJ IV SCH ×2 (08:47→20:17)
[2017-09-05] MEDS: ACETAMINOPHEN 650MG/20.3ML CUP PO PRN (08:48)
[2017-09-05] MEDS: FUROSEMIDE 40 MG INJ IV SCH (08:48)
[2017-09-05] MEDS: FAMOTIDINE 20 MG INJ IV SCH ×2 (08:48→20:17)
[2017-09-05] MEDS: LEVETIRACETAM IV 750 MG in DEXTROSE 5% 100 ML IVPB SCH ×2 (08:49→20:16)
[2017-09-05] MEDS: METOPROLOL 25 MG TAB PO SCH ×2 (08:49→20:17)
[2017-09-05] MEDS: INSULIN GLARGINE [LANtus] 3 ML PEN SC SCH (08:52)
[2017-09-05] MEDS: ENOXAPARIN 40 MG/0.4 ML SYG SC SCH (08:52)
--- NOTE | 2017-09-05 10:56 | PN ---
Date/Time of Note Date/Time of Note DATE: 09/05/17 TIME: 10:56 Assessment/Plan VTE Prophylaxis VTE Prophylaxis Intervention: other Lines/Catheters IV Catheter Type (from [facility] [[email or web address] PICC Line Central line still needed: Yes Urinary Cath still in place: Yes Reason Cath still needed: urinary retention Assessment/Plan Chief Complaint/Hosp Course 36 y/o # s/p Cardiopulmonary arrest--? aspiration, CT head negative, ECHO no wall motion abnormalities, CTPA negative for PE # Severe anoxic encephalopathy on vent s/p EEG X3 and followed by Neuro # Aspiration pneumonia. # Acute respiratory failure on vent 100%>80% with hypoxia and high PEEP # hx Seizure disorder. # Coagulase-negative Staphylococcus bacteremia on admission consistent with contaminant. # Diabetes. 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 Nosocomial, fungal? was on TPN Plan - Back on low dose versed due to seizure - Keppra per Neuro - Mechanical ventilation per Pulmonary - c/w TF - Solumedrol per pulmonary - Added Vancomycin/ zosyn and diflucan today - f/u Joyce cx - c/w iv lasix - increase lantus to 22 - c/w levothyroxine - c/w pepcid and lovenox Problems: Subjective 24 Hr Interval Summary Free Text/Dictation Twitching noted possible seizure activity Fevers noted Restart on low dose Versed and keprra was increased Exam/Review of Systems Vital Signs Vitals Vital Signs Date Time Temp Pulse Resp B/P Pulse Ox O2 Delivery O2 Flow Rate FiO2 09/05/17 10:30 100.7 100 26 148/90 98 Mechanical Ventilator 09/05/17 08:00 100 Intake and Output 09/04/17 09/04/17 09/05/17 15:00 23:00 07:00 Intake Total 630 ml 421.5 ml 427 ml Output Total 3000 ml 935 ml 850 ml Balance -2370 ml -513.5 ml -423 ml Exam Gen: Unresponsive to verbal commands, slight movement on heavy sternal rub, pupils 4-5 mm HEENT: Blood shot eyes Neck:thick Lungs: decreased breath sounds b/l Abdomen: distended, soft Ext +edema Fagan Picc line Results Result Diagram: 09/05/17 0500 09/05/17 0000 Results 24 hrs Laboratory Tests Test 09/04/17 13:44 09/04/17 17:08 09/04/17 21:08 09/05/17 00:00 Bedside Glucose 182 181 148 Sodium Level 147 H Potassium Level 3.5 Chloride Level 106 Carbon Dioxide Level 33 H Anion Gap 12 Blood Urea Nitrogen 30 H Creatinine 0.76 Glucose Level 216 Calcium Level 8.6 Test 09/05/17 02:03 09/05/17 05:00 09/05/17 05:24 09/05/17 07:00 Bedside Glucose 170 186 White Blood Count 12.8 H Red Blood Count 6.41 H Hemoglobin 17.4 Hematocrit 57.2 H Mean Corpuscular Volume 89.2 Mean Corpuscular Hemoglobin 27.1 L Mean Corpuscular Hemoglobin Concent 30.4 L Red Cell Distribution Width 19.3 H Platelet Count 263 Mean Platelet Volume 9.5 Neutrophils % 81.9 H Lymphocytes % 7.8 L Monocytes % 6.2 Eosinophils % 3.4 Basophils % 0.2 Nucleated Red Blood Cells % 0.0 Neutrophils # 10.5 H Lymphocytes # 1.0 Monocytes # 0.8 Eosinophils # 0.4 Basophils # 0.0 Nucleated Red Blood Cells # 0.0 Blood Gas Specimen Source Blood arterial Arterial Blood Date Drawn 09/05/2017 7:30:25 AM Arterial Blood pH (Temp corrected) 7.489 H Arterial Blood pCO2 (Temp correct) 39.8 Arterial Blood pO2 (Temp corrected) 177.8 H Arterial Blood HCO3 29.6 H Arterial Blood Base Excess 5.8 H Arterial Blood Oxygen Saturation 99.0 H Kar Test ACCEPTAB Arterial Blood Gas Puncture Site Right Radial Arterial Blood Carboxyhemoglobin 0.3 Arterial Blood Methemoglobin 0.5 Blood Gas A-a O2 Differential 495.4 H Oxyhemoglobin Percent 98.2 Total Hemoglobin 19.6 H Blood Gas Temperature 37.0 Blood Gas Respiration Rate 26.0 Blood Gas Actual Respiration Rate 26 Blood Gas Modality VENT - AC FiO2 100.0 Blood Gas Tidal Volume 550.0 Blood Gas Low PEEP Setting 10.0 Blood Gas Notified Whom JLD Blood Gas Notified Time 09/05/2017 8:08:06 AM Test 09/05/17 08:46 Bedside Glucose 225 H Medications Medications Current Medications Flumazenil (Romazicon) 0.2 mg Q1M PRN IV BENZODIAZEPINE OVERDOSE; Start at 07:30 Naloxone HCl (Narcan) 0.4 mg Q3M PRN IV DECREASED REPIRATORY RATE; Start at 07:30 Ondansetron HCl (Zofran Inj) 4 mg Q6H PRN IV NAUSEA AND/OR VOMITING; Start 08/24/17 at 07:30 Nitroglycerin (Nitroglycerin (Sl Tab) 0.4 Mg) 1 tab Q5M PRN SL CHEST PAIN; Start 08/24/17 at 07:30 Acetaminophen (Tylenol Liquid) 650 mg Q6H PRN PO PAIN LEVEL 1-3 OR FEVER Last administered on 09/05/17 08:48; Admin Dose 650 MG; Start 08/24/17 at 07:30 Acetaminophen (Tylenol Tab) 650 mg Q6H PRN PO PAIN LEVEL 1-3 OR FEVER Last administered on 09/04/17 21:00; Admin Dose 650 MG; Start 08/24/17 at 07:30 Acetaminophen (Tylenol Supp) 650 mg Q4H PRN [place] PAIN LEVEL 1-3 OR TEMP > 37C Last administered on 09/03/17 20:00; Admin Dose 650 MG; Start 08/24/17 at 07: 30 Ibuprofen (Motrin) 600 mg Q6H PRN PO PAIN LEVEL 1-3 OR FEVER; Start 08/24/17 at 07:30 Acetaminophen/ Hydrocodone Bitart ([place] (5/325)) 1 tab Q6H PRN PO PAIN LEVEL 4 -6; Start 08/24/17 at 07:30 Morphine Sulfate (morphine) 2 mg Q4H PRN IV PAIN LEVEL 7-10 Last administered on 09/03/17 22:18; Admin Dose 2 MG; Start 08/24/17 at 07:30 Lorazepam (Ativan) 1 mg Q2H PRN IV ANXIETY Last administered on 09/04/17 00: 02; Admin Dose 1 MG; Start 08/24/17 at 07:30 Docusate Sodium (Colace) 100 mg Q12H PRN PO CONSTIPATION; Start 08/24/17 at 07: 30 Magnesium Hydroxide (Milk Of Mag) 30 ml DAILY PRN PO CONSTIPATION; Start at 07:30 Bisacodyl (Dulcolax) 5 mg DAILY PRN PO CONSTIPATION; Start 08/24/17 at 07:30 Bisacodyl (Dulcolax Supp) 10 mg DAILY PRN [place] CONSTIPATION; Start 08/24/17 at 07 :30 Sodium Biphosphate/ Sodium Phosphate (Fleet Enema) 133 ml DAILY PRN [place] CONSTIPATION; Start 08/24/17 at 07:30 Enoxaparin Sodium (Lovenox) 40 mg DAILY SC Last administered on 09/05/17 08: 52; Admin Dose 40 MG; Start 08/24/17 at 09:00 Hydralazine HCl (Apresoline) 10 mg Q6H PRN IV ELEVATED BLOOD PRESSURE Last administered on 09/05/17 02:12; Admin Dose 10 MG; Start 08/24/17 at 15:30 Meperidine HCl (Demerol) 12.5 mg Q4H PRN IV POST OPERATIVE SHIVERING; Start at 18:30 Meperidine HCl (Demerol) 25 mg Q4H PRN IV POST OPERATIVE SHIVERING; Start 08/24 at 18:30 Eye Lubricant (Akwa Oint) 1 applic Q6 BOTH EYES Last administered on 05:31; Admin Dose 1 APPLIC; Start 08/24/17 at 18:30 Eye Lubricant 2 drop 2 drop Q6 BOTH EYES Last administered on 09/05/17 05:31 ; Admin Dose 2 DROP; Start 08/24/17 at 18:30 Norepinephrine 16 mg/Dextrose 500 ml @ 1.87 mls/hr TITRATE IV Last administered on 08/26/17 14:32; Admin Dose 22.5 MLS/HR; Start 08/26/17 at 13:30 Fentanyl (Sublimaze) 100 ml @ 2.5 mls/hr TITRATE IV Last administered on 09/02 22:53; Admin Dose 10 MLS/HR; Start 08/27/17 at 09:30 Insulin Glargine (Lantus) 15 unit DAILY@08 SC Last administered on 09/05/17 08:52; Admin Dose 15 UNIT; Start 08/27/17 at 13:00 Miscellaneous Information 1 ea NOTE XX ; Start 08/28/17 at 11:30 Glucose (Glutose) 15 gm Q15M PRN PO DECREASED GLUCOSE; Start 08/28/17 at 11:30 Glucose (Glutose) 22.5 gm Q15M PRN PO DECREASED GLUCOSE; Start 08/28/17 at 11: 30 Dextrose (D50w Syringe) 25 ml Q15M PRN IV DECREASED GLUCOSE; Start 08/28/17 at 11:30 Dextrose (D50w Syringe) 50 ml Q15M PRN IV DECREASED GLUCOSE; Start 08/28/17 at 11:30 Glucagon (Glucagen) 1 mg Q15M PRN IM DECREASED GLUCOSE; Start 08/28/17 at 11:30 Glucose (Glutose) 15 gm Q15M PRN BUCCAL DECREASED GLUCOSE; Start 08/28/17 at 11 :30 IV Flush (NS 10 ml) 10 ml PRN PRN IV IV PROTOCOL; Start 08/28/17 at 14:00 Miscellaneous Information (Pending Santyl Order For Wound Care) This patient almanza... PRN PRN XX WOUND CARE; Start 08/28/17 at 23:00 Furosemide 40 mg 40 mg DAILY IV Last administered on 09/05/17 08:48; Admin Dose 40 MG; Start 08/30/17 at 09:00 Midazolam HCl (Versed) 50 ml @ 1 mls/hr TITRATE IV Last administered on 19:52; Admin Dose 1 MLS/HR; Start 08/29/17 at 16:00 Famotidine (Pepcid Iv) 20 mg BID IV Last administered on 09/05/17 08:48; Admin Dose 20 MG; Start 08/31/17 at 09:00 Levothyroxine Sodium (Synthroid Iv) 25 mcg DAILY@06 IV Last administered on 06:28; Admin Dose 25 MCG; Start 08/31/17 at 06:00 Aspirin (Aspirin) 81 mg DAILY NC ; Start 08/31/17 at 09:00; Status Future Hold Diagnostic Test (Pha) (Accu-Chek) 1 ea 02 XX Last administered on 09/05/17 02 :06; Admin Dose 1 EA; Start 09/01/17 at 02:00 Insulin Aspart (Novolog Insulin Pen) NOVOLOG *MODERATE* ALGORI... Q4 SC Last administered on 09/05/17 08:53; Admin Dose 6 UNIT; Start 08/31/17 at 17:00 Methylprednisolone Sodium Succinate (Solu-Medrol) 40 mg BID IV Last administered on 09/05/17 08:47; Admin Dose 40 MG; Start 09/03/17 at 21:00 Metoprolol Tartrate 25 mg 25 mg DAILY PO Last administered on 09/05/17 08:49 ; Admin Dose 25 MG; Start 09/04/17 at 09:00 Levetiracetam/ Dextrose (Keppra Iv/D5W) 107.5 ml @ 430 mls/hr Q12 IVPB Last administered on 09/05/17 08:49; Admin Dose 430 MLS/HR; Start 09/04/17 at 21: 00 Lorazepam (Ativan) 2 mg Q4 PRN IV SEIZURES; Start 09/04/17 at 19:30 ELMER RAE MD Sep 05, 2017 10:56
[2017-09-05] MEDS ORDERED: POTASSIUM CHLORIDE 250 ML IVPB ONE (11:00)
--- NOTE | 2017-09-05 11:02 | CONS ---
Date/Time of Note Date/Time of Note DATE: 09/05/17 TIME: 10:59 Consult Date/Type/Reason Admit Date/Time Aug 24, 2017 at 07:05 Initial Consult Date 08/27/17 Type of Consultation: Pulmonary Ordering Provider: MIKE LUONG MD Subjective No significant changes. Continues on mechanical ventilation no vasopressor support. FiO2 80%. Eyes twitching concerning for possible seizure activity. Objective Vital Signs Date Time Temp Pulse Resp B/P Pulse Ox O2 Delivery O2 Flow Rate FiO2 09/05/17 10:30 100.7 100 26 148/90 98 Mechanical Ventilator 09/05/17 08:00 100 Intake and Output 09/04/17 09/04/17 09/05/17 14:59 22:59 06:59 Intake Total 610 ml 410.5 ml 418 ml Output Total 2750 ml 1095 ml 840 ml Balance -2140 ml -684.5 ml -422 ml Exam PHYSICAL EXAMINATION: GENERAL: Well-nourished well-developed gentleman comfortable at rest on mechanical ventilation. VITAL SIGNS: NECK: Supple, no JVD or lymphadenopathy. CARDIAC: S1, S2, no added sounds or murmurs. CHEST: Diminished air entry bilaterally. ABDOMEN: Soft, nontender. No guarding or rebound. EXTREMITIES: No cyanosis, clubbing, 1+ edema. NEUROLOGIC: Vegetative state. Results/Medications Result Diagram: 09/05/17 0500 09/05/17 0000 Results 24 hrs Laboratory Tests Test 09/04/17 13:44 09/04/17 17:08 09/04/17 21:08 09/05/17 00:00 Bedside Glucose 182 181 148 Sodium Level 147 H Potassium Level 3.5 Chloride Level 106 Carbon Dioxide Level 33 H Anion Gap 12 Blood Urea Nitrogen 30 H Creatinine 0.76 Glucose Level 216 Calcium Level 8.6 Test 09/05/17 02:03 09/05/17 05:00 09/05/17 05:24 09/05/17 07:00 Bedside Glucose 170 186 White Blood Count 12.8 H Red Blood Count 6.41 H Hemoglobin 17.4 Hematocrit 57.2 H Mean Corpuscular Volume 89.2 Mean Corpuscular Hemoglobin 27.1 L Mean Corpuscular Hemoglobin Concent 30.4 L Red Cell Distribution Width 19.3 H Platelet Count 263 Mean Platelet Volume 9.5 Neutrophils % 81.9 H Lymphocytes % 7.8 L Monocytes % 6.2 Eosinophils % 3.4 Basophils % 0.2 Nucleated Red Blood Cells % 0.0 Neutrophils # 10.5 H Lymphocytes # 1.0 Monocytes # 0.8 Eosinophils # 0.4 Basophils # 0.0 Nucleated Red Blood Cells # 0.0 Blood Gas Specimen Source Blood arterial Arterial Blood Date Drawn 09/05/2017 7:30:25 AM Arterial Blood pH (Temp corrected) 7.489 H Arterial Blood pCO2 (Temp correct) 39.8 Arterial Blood pO2 (Temp corrected) 177.8 H Arterial Blood HCO3 29.6 H Arterial Blood Base Excess 5.8 H Arterial Blood Oxygen Saturation 99.0 H Kar Test ACCEPTAB Arterial Blood Gas Puncture Site Right Radial Arterial Blood Carboxyhemoglobin 0.3 Arterial Blood Methemoglobin 0.5 Blood Gas A-a O2 Differential 495.4 H Oxyhemoglobin Percent 98.2 Total Hemoglobin 19.6 H Blood Gas Temperature 37.0 Blood Gas Respiration Rate 26.0 Blood Gas Actual Respiration Rate 26 Blood Gas Modality VENT - AC FiO2 100.0 Blood Gas Tidal Volume 550.0 Blood Gas Low PEEP Setting 10.0 Blood Gas Notified Whom JLD Blood Gas Notified Time 09/05/2017 8:08:06 AM Test 09/05/17 08:46 Bedside Glucose 225 H Medications Current Medications Flumazenil (Romazicon) 0.2 mg Q1M PRN IV BENZODIAZEPINE OVERDOSE; Start at 07:30 Naloxone HCl (Narcan) 0.4 mg Q3M PRN IV DECREASED REPIRATORY RATE; Start at 07:30 Ondansetron HCl (Zofran Inj) 4 mg Q6H PRN IV NAUSEA AND/OR VOMITING; Start 08/24/17 at 07:30 Nitroglycerin (Nitroglycerin (Sl Tab) 0.4 Mg) 1 tab Q5M PRN SL CHEST PAIN; Start 08/24/17 at 07:30 Acetaminophen (Tylenol Liquid) 650 mg Q6H PRN PO PAIN LEVEL 1-3 OR FEVER Last administered on 09/05/17 08:48; Admin Dose 650 MG; Start 08/24/17 at 07:30 Acetaminophen (Tylenol Tab) 650 mg Q6H PRN PO PAIN LEVEL 1-3 OR FEVER Last administered on 09/04/17 21:00; Admin Dose 650 MG; Start 08/24/17 at 07:30 Acetaminophen (Tylenol Supp) 650 mg Q4H PRN [place] PAIN LEVEL 1-3 OR TEMP > 37C Last administered on 09/03/17 20:00; Admin Dose 650 MG; Start 08/24/17 at 07: 30 Ibuprofen (Motrin) 600 mg Q6H PRN PO PAIN LEVEL 1-3 OR FEVER; Start 08/24/17 at 07:30 Acetaminophen/ Hydrocodone Bitart ([place] (5/325)) 1 tab Q6H PRN PO PAIN LEVEL 4 -6; Start 08/24/17 at 07:30 Morphine Sulfate (morphine) 2 mg Q4H PRN IV PAIN LEVEL 7-10 Last administered on 09/03/17 22:18; Admin Dose 2 MG; Start 08/24/17 at 07:30 Lorazepam (Ativan) 1 mg Q2H PRN IV ANXIETY Last administered on 09/04/17 00: 02; Admin Dose 1 MG; Start 08/24/17 at 07:30 Docusate Sodium (Colace) 100 mg Q12H PRN PO CONSTIPATION; Start 08/24/17 at 07: 30 Magnesium Hydroxide (Milk Of Mag) 30 ml DAILY PRN PO CONSTIPATION; Start at 07:30 Bisacodyl (Dulcolax) 5 mg DAILY PRN PO CONSTIPATION; Start 08/24/17 at 07:30 Bisacodyl (Dulcolax Supp) 10 mg DAILY PRN [place] CONSTIPATION; Start 08/24/17 at 07 :30 Sodium Biphosphate/ Sodium Phosphate (Fleet Enema) 133 ml DAILY PRN [place] CONSTIPATION; Start 08/24/17 at 07:30 Enoxaparin Sodium (Lovenox) 40 mg DAILY SC Last administered on 09/05/17 08: 52; Admin Dose 40 MG; Start 08/24/17 at 09:00 Hydralazine HCl (Apresoline) 10 mg Q6H PRN IV ELEVATED BLOOD PRESSURE Last administered on 09/05/17 02:12; Admin Dose 10 MG; Start 08/24/17 at 15:30 Meperidine HCl (Demerol) 12.5 mg Q4H PRN IV POST OPERATIVE SHIVERING; Start at 18:30 Meperidine HCl (Demerol) 25 mg Q4H PRN IV POST OPERATIVE SHIVERING; Start 08/24 at 18:30 Eye Lubricant (Akwa Oint) 1 applic Q6 BOTH EYES Last administered on 05:31; Admin Dose 1 APPLIC; Start 08/24/17 at 18:30 Eye Lubricant 2 drop 2 drop Q6 BOTH EYES Last administered on 09/05/17 05:31 ; Admin Dose 2 DROP; Start 08/24/17 at 18:30 Norepinephrine 16 mg/Dextrose 500 ml @ 1.87 mls/hr TITRATE IV Last administered on 08/26/17 14:32; Admin Dose 22.5 MLS/HR; Start 08/26/17 at 13:30 Fentanyl (Sublimaze) 100 ml @ 2.5 mls/hr TITRATE IV Last administered on 09/02 22:53; Admin Dose 10 MLS/HR; Start 08/27/17 at 09:30 Miscellaneous Information 1 ea NOTE XX ; Start 08/28/17 at 11:30 Glucose (Glutose) 15 gm Q15M PRN PO DECREASED GLUCOSE; Start 08/28/17 at 11:30 Glucose (Glutose) 22.5 gm Q15M PRN PO DECREASED GLUCOSE; Start 08/28/17 at 11: 30 Dextrose (D50w Syringe) 25 ml Q15M PRN IV DECREASED GLUCOSE; Start 08/28/17 at 11:30 Dextrose (D50w Syringe) 50 ml Q15M PRN IV DECREASED GLUCOSE; Start 08/28/17 at 11:30 Glucagon (Glucagen) 1 mg Q15M PRN IM DECREASED GLUCOSE; Start 08/28/17 at 11:30 Glucose (Glutose) 15 gm Q15M PRN BUCCAL DECREASED GLUCOSE; Start 08/28/17 at 11 :30 IV Flush (NS 10 ml) 10 ml PRN PRN IV IV PROTOCOL; Start 08/28/17 at 14:00 [facility] This patient almanza... PRN PRN XX WOUND CARE; Start 08/28/17 at 23:00 Furosemide 40 mg 40 mg DAILY IV Last administered on 09/05/17 08:48; Admin Dose 40 MG; Start 08/30/17 at 09:00 Midazolam HCl (Versed) 50 ml @ 1 mls/hr TITRATE IV Last administered on 19:52; Admin Dose 1 MLS/HR; Start 08/29/17 at 16:00 Famotidine (Pepcid Iv) 20 mg BID IV Last administered on 09/05/17 08:48; Admin Dose 20 MG; Start 08/31/17 at 09:00 Levothyroxine Sodium (Synthroid Iv) 25 mcg DAILY@06 IV Last administered on 06:28; Admin Dose 25 MCG; Start 08/31/17 at 06:00 Aspirin (Aspirin) 81 mg DAILY [place] ; Start 08/31/17 at 09:00; Status Future Hold Diagnostic Test (Pha) (Accu-Chek) 1 ea 02 XX Last administered on 09/05/17 02 :06; Admin Dose 1 EA; Start 09/01/17 at 02:00 Insulin Aspart (Novolog Insulin Pen) NOVOLOG *MODERATE* ALGORI... Q4 SC Last administered on 09/05/17 08:53; Admin Dose 6 UNIT; Start 08/31/17 at 17:00 Methylprednisolone Sodium Succinate (Solu-Medrol) 40 mg BID IV Last administered on 09/05/17 08:47; Admin Dose 40 MG; Start 09/03/17 at 21:00 Metoprolol Tartrate 25 mg 25 mg DAILY PO Last administered on 09/05/17 08:49 ; Admin Dose 25 MG; Start 09/04/17 at 09:00 Levetiracetam/ Dextrose (Keppra Iv/D5W) 107.5 ml @ 430 mls/hr Q12 IVPB Last administered on 09/05/17 08:49; Admin Dose 430 MLS/HR; Start 09/04/17 at 21: 00 Lorazepam (Ativan) 2 mg Q4 PRN IV SEIZURES; Start 09/04/17 at 19:30 Insulin Glargine (Lantus) 22 unit DAILY@08 SC ; Start 09/06/17 at 08:00; Status UNV Assessment/Plan Chief Complaint/Hosp Course IMP: 1. s/p Cardiopulmonary arrest--likely due to aspiration and central airway obstruction 2. Seizure Disorder, agree with repeat EEG to exclude subclinical seizures. 3. Gram + bacteremia--likely contaminant 4. Probable significant anoxic brain injury 5. Hypoxemic respiratory failure. Persistent hypoxemia despite aggressive volume removal. 6. Morbid obesity 7. DM RECS: 1. Continue mechanical ventilation for weaning, decrease FiO2 and PEEP as tolerated. Currently on volume control ventilation. 2. Anti-epileptic Rx continues low-dose Versed agree with EEG and neuro recommendations. 3. Trial of nasogastric tube feeding 4. Abx 5. F/U Cx's 6. DVT and GI prophylaxis Explained patient's current condition to his fiance at bedside today. Also discussed the importance of ruling out subclinical seizures but I did stress that this is likely his new neurological baseline. Will discuss prognosis and goals of care with her again to establish how to proceed. Problems: JULIANA WASHINGTON MD, [facility] Sep 05, 2017 11:02
[2017-09-05] MEDS ORDERED: INSULIN GLARGINE [LANtus] 3 ML PEN SC ONE (11:30)
--- NOTE | 2017-09-05 12:01 | CONS ---
Date/Time of Note Date/Time of Note DATE: 09/05/17 TIME: 11:57 Assessment/Plan Assessment/Plan Chief Complaint/Hosp Course IMPRESSION: 1. Pulseless electrical activity cardiac arrest. EF 50% by echo this admit 2. Abnormal electrocardiogram with diffuse ST depressions but in the setting of cardiac arrest. 3. Hypotension-improved off pressors 4. Tachycardia consistent with sinus tachycardia. 5. Encephalopathy. 6. History of flu-like illness. 7. Hypothyroidism. 8. Hematuria. 9. 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 Lactic acidosis. 11. Leukocytosis. 12. Positive troponin-minimal in setting of cardiac arrest and now trended negative 14. bacteremia 15. Fevers Recc: -Tele in ICU -continue abx's and f/u cx data -Follow MS closely -Continue asa -Continue BB as tolerated -Continue lasix diuresis daily -Rx fevers Problems: Consultation Date/Type/Reason Admit Date/Time Aug 24, 2017 at 07:05 Initial Consult Date 08/27/17 Type of Consultation: cardiology Reason for Consultation cardiac arrest Referring Provider: MIKE LUONG MD Exam/Review of Systems Vital Signs Vitals Vital Signs Date Time Temp Pulse Resp B/P Pulse Ox O2 Delivery O2 Flow Rate FiO2 09/05/17 11:03 105 26 97 80 09/05/17 10:30 100.7 148/90 Mechanical Ventilator Intake and Output 09/04/17 09/04/17 09/05/17 15:00 23:00 07:00 Intake Total 630 ml 421.5 ml 427 ml Output Total 3000 ml 935 ml 850 ml Balance -2370 ml -513.5 ml -423 ml Exam Review of Systems: CONSTITUTIONAL: No fevers, chills. PULMONARY: intubated CARDIOVASCULAR: No chest pain/palpitations GASTROINTESTINAL: No nausea/vomiting. GENITOURINARY: No hematuria/dysuria. MUSCULOSKELETAL: No myagias/arthalgias. PSYCHIATRIC: The patient denies depression. NEUROLOGIC: encephalopathic Constitutional: other (encephalopathic) Psych: no complaints Head: normocephalic ENMT: mucosa pink and moist Neck: jvd (9 cm water), supple Respiratory: diminished breath sounds (at bases/B) Cardiovascular: regular rate and rhythm Gastrointestinal: non-tender, soft Musculoskeletal: muscle tone (normal) Extremities: edema (none) Neurological: other (encephalopathic) Results Result Diagram: 09/05/17 0500 09/05/17 0000 Results 24 hrs Laboratory Tests Test 09/04/17 13:44 09/04/17 17:08 09/04/17 21:08 09/05/17 00:00 Bedside Glucose 182 181 148 Sodium Level 147 H Potassium Level 3.5 Chloride Level 106 Carbon Dioxide Level 33 H Anion Gap 12 Blood Urea Nitrogen 30 H Creatinine 0.76 Glucose Level 216 Calcium Level 8.6 Test 09/05/17 02:03 09/05/17 05:00 09/05/17 05:24 09/05/17 07:00 Bedside Glucose 170 186 White Blood Count 12.8 H Red Blood Count 6.41 H Hemoglobin 17.4 Hematocrit 57.2 H Mean Corpuscular Volume 89.2 Mean Corpuscular Hemoglobin 27.1 L Mean Corpuscular Hemoglobin Concent 30.4 L Red Cell Distribution Width 19.3 H Platelet Count 263 Mean Platelet Volume 9.5 Neutrophils % 81.9 H Lymphocytes % 7.8 L Monocytes % 6.2 Eosinophils % 3.4 Basophils % 0.2 Nucleated Red Blood Cells % 0.0 Neutrophils # 10.5 H Lymphocytes # 1.0 Monocytes # 0.8 Eosinophils # 0.4 Basophils # 0.0 Nucleated Red Blood Cells # 0.0 Blood Gas Specimen Source Blood arterial Arterial Blood Date Drawn 09/05/2017 7:30:25 AM Arterial Blood pH (Temp corrected) 7.489 H Arterial Blood pCO2 (Temp correct) 39.8 Arterial Blood pO2 (Temp corrected) 177.8 H Arterial Blood HCO3 29.6 H Arterial Blood Base Excess 5.8 H Arterial Blood Oxygen Saturation 99.0 H Kar Test ACCEPTAB Arterial Blood Gas Puncture Site Right Radial Arterial Blood Carboxyhemoglobin 0.3 Arterial Blood Methemoglobin 0.5 Blood Gas A-a O2 Differential 495.4 H Oxyhemoglobin Percent 98.2 Total Hemoglobin 19.6 H Blood Gas Temperature 37.0 Blood Gas Respiration Rate 26.0 Blood Gas Actual Respiration Rate 26 Blood Gas Modality VENT - AC FiO2 100.0 Blood Gas Tidal Volume 550.0 Blood Gas Low PEEP Setting 10.0 Blood Gas Notified Whom JLD Blood Gas Notified Time 09/05/2017 8:08:06 AM Test 09/05/17 08:46 Bedside Glucose 225 H Medications Medications Current Medications Flumazenil (Romazicon) 0.2 mg Q1M PRN IV BENZODIAZEPINE OVERDOSE; Start at 07:30 Naloxone HCl (Narcan) 0.4 mg Q3M PRN IV DECREASED REPIRATORY RATE; Start at 07:30 Ondansetron HCl (Zofran Inj) 4 mg Q6H PRN IV NAUSEA AND/OR VOMITING; Start 08/24/17 at 07:30 Nitroglycerin (Nitroglycerin (Sl Tab) 0.4 Mg) 1 tab Q5M PRN SL CHEST PAIN; Start 08/24/17 at 07:30 Acetaminophen (Tylenol Liquid) 650 mg Q6H PRN PO PAIN LEVEL 1-3 OR FEVER Last administered on 09/05/17 08:48; Admin Dose 650 MG; Start 08/24/17 at 07:30 Acetaminophen (Tylenol Tab) 650 mg Q6H PRN PO PAIN LEVEL 1-3 OR FEVER Last administered on 09/04/17 21:00; Admin Dose 650 MG; Start 08/24/17 at 07:30 Acetaminophen (Tylenol Supp) 650 mg Q4H PRN [place] PAIN LEVEL 1-3 OR TEMP > 37C Last administered on 09/03/17 20:00; Admin Dose 650 MG; Start 08/24/17 at 07: 30 Ibuprofen (Motrin) 600 mg Q6H PRN PO PAIN LEVEL 1-3 OR FEVER; Start 08/24/17 at 07:30 Acetaminophen/ Hydrocodone Bitart ([place] (5/325)) 1 tab Q6H PRN PO PAIN LEVEL 4 -6; Start 08/24/17 at 07:30 Morphine Sulfate (morphine) 2 mg Q4H PRN IV PAIN LEVEL 7-10 Last administered on 09/03/17 22:18; Admin Dose 2 MG; Start 08/24/17 at 07:30 Lorazepam (Ativan) 1 mg Q2H PRN IV ANXIETY Last administered on 09/04/17 00: 02; Admin Dose 1 MG; Start 08/24/17 at 07:30 Docusate Sodium (Colace) 100 mg Q12H PRN PO CONSTIPATION; Start 08/24/17 at 07: 30 Magnesium Hydroxide (Milk Of Mag) 30 ml DAILY PRN PO CONSTIPATION; Start at 07:30 Bisacodyl (Dulcolax) 5 mg DAILY PRN PO CONSTIPATION; Start 08/24/17 at 07:30 Bisacodyl (Dulcolax Supp) 10 mg DAILY PRN [place] CONSTIPATION; Start 08/24/17 at 07 :30 Sodium Biphosphate/ Sodium Phosphate (Fleet Enema) 133 ml DAILY PRN [place] CONSTIPATION; Start 08/24/17 at 07:30 Enoxaparin Sodium (Lovenox) 40 mg DAILY SC Last administered on 09/05/17 08: 52; Admin Dose 40 MG; Start 08/24/17 at 09:00 Hydralazine HCl (Apresoline) 10 mg Q6H PRN IV ELEVATED BLOOD PRESSURE Last administered on 09/05/17 02:12; Admin Dose 10 MG; Start 08/24/17 at 15:30 Meperidine HCl (Demerol) 12.5 mg Q4H PRN IV POST OPERATIVE SHIVERING; Start at 18:30 Meperidine HCl (Demerol) 25 mg Q4H PRN IV POST OPERATIVE SHIVERING; Start 08/24 at 18:30 Eye Lubricant (Akwa Oint) 1 applic Q6 BOTH EYES Last administered on 11:37; Admin Dose 1 APPLIC; Start 08/24/17 at 18:30 Eye Lubricant 2 drop 2 drop Q6 BOTH EYES Last administered on 09/05/17 11:37 ; Admin Dose 2 DROP; Start 08/24/17 at 18:30 Norepinephrine 16 mg/Dextrose 500 ml @ 1.87 mls/hr TITRATE IV Last administered on 08/26/17 14:32; Admin Dose 22.5 MLS/HR; Start 08/26/17 at 13:30 Fentanyl (Sublimaze) 100 ml @ 2.5 mls/hr TITRATE IV Last administered on 09/02 22:53; Admin Dose 10 MLS/HR; Start 08/27/17 at 09:30 Miscellaneous Information 1 ea NOTE XX ; Start 08/28/17 at 11:30 Glucose (Glutose) 15 gm Q15M PRN PO DECREASED GLUCOSE; Start 08/28/17 at 11:30 Glucose (Glutose) 22.5 gm Q15M PRN PO DECREASED GLUCOSE; Start 08/28/17 at 11: 30 Dextrose (D50w Syringe) 25 ml Q15M PRN IV DECREASED GLUCOSE; Start 08/28/17 at 11:30 Dextrose (D50w Syringe) 50 ml Q15M PRN IV DECREASED GLUCOSE; Start 08/28/17 at 11:30 Glucagon (Glucagen) 1 mg Q15M PRN IM DECREASED GLUCOSE; Start 08/28/17 at 11:30 Glucose (Glutose) 15 gm Q15M PRN BUCCAL DECREASED GLUCOSE; Start 08/28/17 at 11 :30 IV Flush (NS 10 ml) 10 ml PRN PRN IV IV PROTOCOL; Start 08/28/17 at 14:00 Miscellaneous Information (Pending Santyl Order For Wound Care) This patient almanza... PRN PRN XX WOUND CARE; Start 08/28/17 at 23:00 Furosemide 40 mg 40 mg DAILY IV Last administered on 09/05/17 08:48; Admin Dose 40 MG; Start 08/30/17 at 09:00 Midazolam HCl (Versed) 50 ml @ 1 mls/hr TITRATE IV Last administered on 19:52; Admin Dose 1 MLS/HR; Start 08/29/17 at 16:00 Famotidine (Pepcid Iv) 20 mg BID IV Last administered on 09/05/17 08:48; Admin Dose 20 MG; Start 08/31/17 at 09:00 Levothyroxine Sodium (Synthroid Iv) 25 mcg DAILY@06 IV Last administered on 06:28; Admin Dose 25 MCG; Start 08/31/17 at 06:00 Aspirin (Aspirin) 81 mg DAILY NM ; Start 08/31/17 at 09:00; Status Future Hold Diagnostic Test (Pha) (Accu-Chek) 1 ea 02 XX Last administered on 09/05/17 02 :06; Admin Dose 1 EA; Start 09/01/17 at 02:00 Insulin Aspart (Novolog Insulin Pen) NOVOLOG *MODERATE* ALGORI... Q4 SC Last administered on 09/05/17 08:53; Admin Dose 6 UNIT; Start 08/31/17 at 17:00 Methylprednisolone Sodium Succinate (Solu-Medrol) 40 mg BID IV Last administered on 09/05/17 08:47; Admin Dose 40 MG; Start 09/03/17 at 21:00 Metoprolol Tartrate 25 mg 25 mg DAILY PO Last administered on 09/05/17 08:49 ; Admin Dose 25 MG; Start 09/04/17 at 09:00 Levetiracetam/ Dextrose (Keppra Iv/D5W) 107.5 ml @ 430 mls/hr Q12 IVPB Last administered on 09/05/17 08:49; Admin Dose 430 MLS/HR; Start 09/04/17 at 21: 00 Lorazepam (Ativan) 2 mg Q4 PRN IV SEIZURES; Start 09/04/17 at 19:30 Insulin Glargine 22 unit 22 unit DAILY@08 SC ; Start 09/06/17 at 08:00 Potassium Chloride (KCl 40 MEQ/250 ML NS) 250 ml @ 62.5 mls/hr ONCE ONCE IVPB Last administered on 09/05/17 11:26; Admin Dose 62.5 MLS/HR; Start at 11:00; Stop 09/05/17 at 14:59 SKYLAR ABDALLA 15, 2017 12:01
--- NOTE | 2017-09-05 12:13 | CONS ---
Date/Time of Note Date/Time of Note DATE: 09/05/17 TIME: 12:10 Consult Date/Type/Reason Admit Date/Time Aug 24, 2017 at 07:05 Initial Consult Date 08/27/17 Type of Consultation: ID Ordering Provider: MIKE LUONG MD Objective Vital Signs Date Time Temp Pulse Resp B/P Pulse Ox O2 Delivery O2 Flow Rate FiO2 09/05/17 11:03 105 26 97 80 09/05/17 10:30 100.7 148/90 Mechanical Ventilator Intake and Output 09/04/17 09/04/17 09/05/17 14:59 22:59 06:59 Intake Total 610 ml 410.5 ml 418 ml Output Total 2750 ml 1095 ml 840 ml Balance -2140 ml -684.5 ml -422 ml Results/Medications Result Diagram: 09/05/17 0500 09/05/17 0000 Results 24 hrs Laboratory Tests Test 09/04/17 13:44 09/04/17 17:08 09/04/17 21:08 09/05/17 00:00 Bedside Glucose 182 181 148 Sodium Level 147 H Potassium Level 3.5 Chloride Level 106 Carbon Dioxide Level 33 H Anion Gap 12 Blood Urea Nitrogen 30 H Creatinine 0.76 Glucose Level 216 Calcium Level 8.6 Test 09/05/17 02:03 09/05/17 05:00 09/05/17 05:24 09/05/17 07:00 Bedside Glucose 170 186 White Blood Count 12.8 H Red Blood Count 6.41 H Hemoglobin 17.4 Hematocrit 57.2 H Mean Corpuscular Volume 89.2 Mean Corpuscular Hemoglobin 27.1 L Mean Corpuscular Hemoglobin Concent 30.4 L Red Cell Distribution Width 19.3 H Platelet Count 263 Mean Platelet Volume 9.5 Neutrophils % 81.9 H Lymphocytes % 7.8 L Monocytes % 6.2 Eosinophils % 3.4 Basophils % 0.2 Nucleated Red Blood Cells % 0.0 Neutrophils # 10.5 H Lymphocytes # 1.0 Monocytes # 0.8 Eosinophils # 0.4 Basophils # 0.0 Nucleated Red Blood Cells # 0.0 Blood Gas Specimen Source Blood arterial Arterial Blood Date Drawn 09/05/2017 7:30:25 AM Arterial Blood pH (Temp corrected) 7.489 H Arterial Blood pCO2 (Temp correct) 39.8 Arterial Blood pO2 (Temp corrected) 177.8 H Arterial Blood HCO3 29.6 H Arterial Blood Base Excess 5.8 H Arterial Blood Oxygen Saturation 99.0 H Kar Test ACCEPTAB Arterial Blood Gas Puncture Site Right Radial Arterial Blood Carboxyhemoglobin 0.3 Arterial Blood Methemoglobin 0.5 Blood Gas A-a O2 Differential 495.4 H Oxyhemoglobin Percent 98.2 Total Hemoglobin 19.6 H Blood Gas Temperature 37.0 Blood Gas Respiration Rate 26.0 Blood Gas Actual Respiration Rate 26 Blood Gas Modality VENT - AC FiO2 100.0 Blood Gas Tidal Volume 550.0 Blood Gas Low PEEP Setting 10.0 Blood Gas Notified Whom JLD Blood Gas Notified Time 09/05/2017 8:08:06 AM Test 09/05/17 08:46 Bedside Glucose 225 H Medications Current Medications Flumazenil (Romazicon) 0.2 mg Q1M PRN IV BENZODIAZEPINE OVERDOSE; Start at 07:30 Naloxone HCl (Narcan) 0.4 mg Q3M PRN IV DECREASED REPIRATORY RATE; Start at 07:30 Ondansetron HCl (Zofran Inj) 4 mg Q6H PRN IV NAUSEA AND/OR VOMITING; Start 08/24/17 at 07:30 Nitroglycerin (Nitroglycerin (Sl Tab) 0.4 Mg) 1 tab Q5M PRN SL CHEST PAIN; Start 08/24/17 at 07:30 Acetaminophen (Tylenol Liquid) 650 mg Q6H PRN PO PAIN LEVEL 1-3 OR FEVER Last administered on 09/05/17 08:48; Admin Dose 650 MG; Start 08/24/17 at 07:30 Acetaminophen (Tylenol Tab) 650 mg Q6H PRN PO PAIN LEVEL 1-3 OR FEVER Last administered on 09/04/17 21:00; Admin Dose 650 MG; Start 08/24/17 at 07:30 Acetaminophen (Tylenol Supp) 650 mg Q4H PRN [place] PAIN LEVEL 1-3 OR TEMP > 37C Last administered on 09/03/17 20:00; Admin Dose 650 MG; Start 08/24/17 at 07: 30 Ibuprofen (Motrin) 600 mg Q6H PRN PO PAIN LEVEL 1-3 OR FEVER; Start 08/24/17 at 07:30 Acetaminophen/ Hydrocodone Bitart ([place] (5/325)) 1 tab Q6H PRN PO PAIN LEVEL 4 -6; Start 08/24/17 at 07:30 Morphine Sulfate (morphine) 2 mg Q4H PRN IV PAIN LEVEL 7-10 Last administered on 09/03/17 22:18; Admin Dose 2 MG; Start 08/24/17 at 07:30 Lorazepam (Ativan) 1 mg Q2H PRN IV ANXIETY Last administered on 09/04/17 00: 02; Admin Dose 1 MG; Start 08/24/17 at 07:30 Docusate Sodium (Colace) 100 mg Q12H PRN PO CONSTIPATION; Start 08/24/17 at 07: 30 Magnesium Hydroxide (Milk Of Mag) 30 ml DAILY PRN PO CONSTIPATION; Start at 07:30 Bisacodyl (Dulcolax) 5 mg DAILY PRN PO CONSTIPATION; Start 08/24/17 at 07:30 Bisacodyl (Dulcolax Supp) 10 mg DAILY PRN [place] CONSTIPATION; Start 08/24/17 at 07 :30 Sodium Biphosphate/ Sodium Phosphate (Fleet Enema) 133 ml DAILY PRN [place] CONSTIPATION; Start 08/24/17 at 07:30 Enoxaparin Sodium (Lovenox) 40 mg DAILY SC Last administered on 09/05/17 08: 52; Admin Dose 40 MG; Start 08/24/17 at 09:00 Hydralazine HCl (Apresoline) 10 mg Q6H PRN IV ELEVATED BLOOD PRESSURE Last administered on 09/05/17 02:12; Admin Dose 10 MG; Start 08/24/17 at 15:30 Meperidine HCl (Demerol) 12.5 mg Q4H PRN IV POST OPERATIVE SHIVERING; Start at 18:30 Meperidine HCl (Demerol) 25 mg Q4H PRN IV POST OPERATIVE SHIVERING; Start 08/24 at 18:30 Eye Lubricant (Akwa Oint) 1 applic Q6 BOTH EYES Last administered on 11:37; Admin Dose 1 APPLIC; Start 08/24/17 at 18:30 Eye Lubricant 2 drop 2 drop Q6 BOTH EYES Last administered on 09/05/17 11:37 ; Admin Dose 2 DROP; Start 08/24/17 at 18:30 Norepinephrine 16 mg/Dextrose 500 ml @ 1.87 mls/hr TITRATE IV Last administered on 08/26/17 14:32; Admin Dose 22.5 MLS/HR; Start 08/26/17 at 13:30 Fentanyl (Sublimaze) 100 ml @ 2.5 mls/hr TITRATE IV Last administered on 09/02 22:53; Admin Dose 10 MLS/HR; Start 08/27/17 at 09:30 Miscellaneous Information 1 ea NOTE XX ; Start 08/28/17 at 11:30 Glucose (Glutose) 15 gm Q15M PRN PO DECREASED GLUCOSE; Start 08/28/17 at 11:30 Glucose (Glutose) 22.5 gm Q15M PRN PO DECREASED GLUCOSE; Start 08/28/17 at 11: 30 Dextrose (D50w Syringe) 25 ml Q15M PRN IV DECREASED GLUCOSE; Start 08/28/17 at 11:30 Dextrose (D50w Syringe) 50 ml Q15M PRN IV DECREASED GLUCOSE; Start 08/28/17 at 11:30 Glucagon (Glucagen) 1 mg Q15M PRN IM DECREASED GLUCOSE; Start 08/28/17 at 11:30 Glucose (Glutose) 15 gm Q15M PRN BUCCAL DECREASED GLUCOSE; Start 08/28/17 at 11 :30 IV Flush (NS 10 ml) 10 ml PRN PRN IV IV PROTOCOL; Start 08/28/17 at 14:00 [facility] This patient almanza... PRN PRN XX WOUND CARE; Start 08/28/17 at 23:00 Furosemide 40 mg 40 mg DAILY IV Last administered on 09/05/17 08:48; Admin Dose 40 MG; Start 08/30/17 at 09:00 Midazolam HCl (Versed) 50 ml @ 1 mls/hr TITRATE IV Last administered on 19:52; Admin Dose 1 MLS/HR; Start 08/29/17 at 16:00 Famotidine (Pepcid Iv) 20 mg BID IV Last administered on 09/05/17 08:48; Admin Dose 20 MG; Start 08/31/17 at 09:00 Levothyroxine Sodium (Synthroid Iv) 25 mcg DAILY@06 IV Last administered on 06:28; Admin Dose 25 MCG; Start 08/31/17 at 06:00 Aspirin (Aspirin) 81 mg DAILY [place] ; Start 08/31/17 at 09:00; Status Future Hold Diagnostic Test (Pha) (Accu-Chek) 1 ea 02 XX Last administered on 09/05/17 02 :06; Admin Dose 1 EA; Start 09/01/17 at 02:00 Insulin Aspart (Novolog Insulin Pen) NOVOLOG *MODERATE* ALGORI... Q4 SC Last administered on 09/05/17 08:53; Admin Dose 6 UNIT; Start 08/31/17 at 17:00 Methylprednisolone Sodium Succinate 40 mg 40 mg BID IV Last administered on 08:47; Admin Dose 40 MG; Start 09/03/17 at 21:00 Levetiracetam/ Dextrose (Keppra Iv/D5W) 107.5 ml @ 430 mls/hr Q12 IVPB Last administered on 09/05/17 08:49; Admin Dose 430 MLS/HR; Start 09/04/17 at 21: 00 Lorazepam (Ativan) 2 mg Q4 PRN IV SEIZURES; Start 09/04/17 at 19:30 Insulin Glargine 22 unit 22 unit DAILY@08 SC ; Start 09/06/17 at 08:00 Potassium Chloride (KCl 40 MEQ/250 ML NS) 250 ml @ 62.5 mls/hr ONCE ONCE IVPB Last administered on 09/05/17 11:26; Admin Dose 62.5 MLS/HR; Start at 11:00; Stop 09/05/17 at 14:59 Metoprolol Tartrate (Lopressor) 25 mg BID PO ; Start 09/05/17 at 21:00 Assessment/Plan Chief Complaint/Hosp Course SUBJECTIVE: Spiking fevers, comfortable on vent, unresponsive. Tm 101.7 MICROBIOLOGY: Cultures since admission negative. ANTIMICROBIALS: INDWELLINGS: Endotracheal tube, NG tube, Fagan catheter, PICC line. PHYSICAL EXAMINATION: GENERAL: Obese, well-developed, middle-aged, man who is in no distress. HEENT: Head atraumatic, normocephalic. Sclerae anicteric. Buccal mucosa dry. NECK: Supple. CHEST: Rise symmetrical. Breath sounds diminished to bases. HEART: S1, S2. ABDOMEN: Soft. Bowel tones hypoactive. EXTREMITIES: With bilateral edema. ASSESSMENT: 1. Fevers ?nosocomial sepsis. 2. Anoxic encephalopathy status post cardiopulmonary arrest. 3. S/p aspiration pneumonia. 4. Acute respiratory failure. 5. Seizure disorder. 6. Coagulase-negative Staphylococcus bacteremia on admission consistent with contaminant. 7. Diabetes. 8. Polycythemia. PLAN: Clinically unchanged. Will repeat cx's, restart on broad spectrum abx DW staff/family Problems: BEKA WATKINS NP Sep 05, 2017 12:13
[2017-09-05] MEDS ORDERED: VANCOMYCIN IV PER PHARMACY XX SCH (12:30)
[2017-09-05] MEDS: FLUCONAZOLE 100 MG TAB PO SCH (12:48)
[2017-09-05] MEDS ORDERED: VANCOMYCIN 2 GM in DEXTROSE 5% 500 ML IVPB ONE (13:00)
[2017-09-05] MEDS: PIPER-TAZO 3.375 GM IV (PMX) 50 ML IVPB SCH ×2 (13:55→22:19)
[2017-09-05] MEDS: MIDAZOLAM (DRIP) 50 mg/50 mL 50 ML IV SCH ×2 (14:09→17:36)
[2017-09-05] MEDS ORDERED: DEXTROSE 50% 50 ML SYRINGE IV PRN ×2 (15:00)
[2017-09-05] MEDS: INSULIN HUMAN REGULAR 100 UNIT in SOD CHLORIDE 0.9% 99 ML IV SCH (16:31)
[2017-09-05] MEDS ORDERED: VANCOMYCIN 1 GM (PMX) 250 ML ONE (20:54)
[2017-09-05] MEDS: VANCOMYCIN 1.5 GM in DEXTROSE 5% 250 ML IVPB SCH (21:13)
[2017-09-06] VITALS (56 sets, daily range): BP systolic 120–159; BP diastolic 75–111; PULSE 78–102; RESP 9–76
[2017-09-06] MEDS: ARTIFICIAL TEARS 15 ML OPH BOTH EYES SCH ×5 (00:04→23:40)
[2017-09-06] MEDS: OCULAR LUBRICANT 3.5 GM OPH OINT BOTH EYES SCH ×5 (00:04→23:40)
[2017-09-06] MEDS: ACCU-CHEK XX SCH ×26 (00:06→23:41)
[2017-09-06] MEDS: ACETAMINOPHEN 650MG/20.3ML CUP PO PRN (00:25)
[2017-09-06] MEDS: ALBUTEROL HFA 8 GM INHALER INH SCH ×6 (01:41→21:47)
[2017-09-06] MEDS: IPRATROPIUM (HFA) 12.9 GM INHALER INH SCH ×6 (01:41→21:47)
[2017-09-06] MEDS: MIDAZOLAM (DRIP) 50 mg/50 mL 50 ML IV SCH ×2 (02:55→16:35)
[2017-09-06] MEDS: VANCOMYCIN 1.5 GM in DEXTROSE 5% 250 ML IVPB SCH ×3 (04:35→20:39)
[2017-09-06 05:22] LABS: ABNORMAL IP MESSAGE 1; BASOPHILS % 0.1 % (0.0-2.0); EOSINOPHILS # 0.1 10^3/ul (0.0-0.5); EOSINOPHILS % 0.7 % (0.0-7.0); LYMPHOCYTES # 0.6 10^3/ul (0.8-2.9); LYMPHOCYTES % 4.8 % (15.0-51.0); MEAN CORPUSCULAR HEMOGLOBIN 27.2 pg (29.0-33.0); MEAN CORPUSCULAR HGB CONC 30.4 g/dl (32.0-37.0); MEAN CORPUSCULAR VOLUME 89.6 fl (82.0-101.0); MEAN PLATELET VOLUME 10.2 fl (7.4-10.4); MONOCYTE # 0.6 10^3/ul (0.3-0.9); MONOCYTES % 4.8 % (0.0-11.0); NEUTROPHIL # 10.9 10^3/ul (1.6-7.5); NEUTROPHILS % 89.2 % (39.0-77.0); PLATELET COUNT 257 10^3/UL (140-415); POSITIVE DIFF @See below; RED BLOOD COUNT 6.25 10^6/ul (4.70-6.10); RED CELL DISTRIBUTION WIDTH 18.2 % (11.5-14.5); WHITE BLOOD COUNT 12.2 10^3/ul (4.8-10.8)
[2017-09-06 05:50] LABS: MAGNESIUM 1.8 mg/dl (1.7-2.5)
[2017-09-06 05:51] LABS: BILIRUBIN,INDIRECT 1.9 mg/dl (0-1.1); BILIRUBIN,TOTAL 1.9 mg/dl (0.2-1.3); CALCIUM 9.1 mg/dl (8.4-10.2); CREATININE 0.76 mg/dl (0.61-1.24); POTASSIUM 3.9 mmol/L (3.5-5.1)
[2017-09-06] MEDS: INSULIN HUMAN REGULAR 100 UNIT in SOD CHLORIDE 0.9% 99 ML IV SCH ×2 (05:54→19:43)
[2017-09-06] MEDS: PIPER-TAZO 3.375 GM IV (PMX) 50 ML IVPB SCH ×3 (05:59→21:27)
[2017-09-06] MEDS: LEVOTHYROXINE 100 MCG VIAL IV SCH (06:04)
--- NOTE | 2017-09-06 07:42 | RADRPT ---
PROCEDURE: XR Chest. TECHNIQUE: Single frontal radiograph. CLINICAL INDICATION: Pneumonia. COMPARISON: CHEST 09/05/2017. FINDINGS: Stable position of endotracheal tube, left-sided PICC, and nasogastric tube. Lung volumes remain shallow with interval decrease in multi focal airspace opacities and consolidati ons identified in the bilateral lung [place]ork. There is a persistent small left pleural effusion. IMPRESSION: Stable lines and tubes. Interval decrease in multi focal airspace opacities involving the bilateral lung york in keeping w ith resolving edema and/or other infiltrates. Unchanged low lung volumes, appearance of the enlarged cardiac silhouette, and small left pleural ef fusion. RPTAT: EE .Akil Lambert MD, MD Date Time Electronically viewed and signed by .Akil Lambert MD, MD on 09/06/2017 07:48 .C/
[2017-09-06] MEDS ORDERED: INSULIN GLARGINE [LANtus] 3 ML PEN SC SCH (08:00)
[2017-09-06] MEDS: FLUCONAZOLE 100 MG TAB PO SCH (08:34)
[2017-09-06] MEDS: METOPROLOL 25 MG TAB PO SCH ×2 (08:35→20:40)
[2017-09-06] MEDS: FUROSEMIDE 40 MG INJ IV SCH (08:35)
[2017-09-06] MEDS: METHYLPREDNISOLONE 40 MG INJ IV SCH ×2 (08:35→20:38)
[2017-09-06] MEDS: LEVETIRACETAM IV 750 MG in DEXTROSE 5% 100 ML IVPB SCH ×2 (08:36→20:39)
[2017-09-06] MEDS: FAMOTIDINE 20 MG INJ IV SCH (08:36)
[2017-09-06] MEDS: ENOXAPARIN 40 MG/0.4 ML SYG SC SCH (08:40)
--- NOTE | 2017-09-06 09:04 | PN ---
Date/Time of Note Date/Time of Note DATE: 09/06/17 TIME: 09:04 Assessment/Plan VTE Prophylaxis VTE Prophylaxis Intervention: other Lines/Catheters IV Catheter Type (from Nrs): PICC Line Central line still needed: Yes Urinary Cath still in place: Yes Reason Cath still needed: urinary retention Assessment/Plan Chief Complaint/Hosp Course 36 y/o # s/p Cardiopulmonary arrest--? aspiration, CT head negative, ECHO no wall motion abnormalities, CTPA negative for PE # Severe anoxic encephalopathy on vent s/p EEG X3 and followed by Neuro # Aspiration pneumonia. # Acute respiratory failure on vent 100%>80% with hypoxia and high PEEP # hx Seizure disorder. # Coagulase-negative Staphylococcus bacteremia on admission consistent with contaminant. # Diabetes. 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 Nosocomial, fungal? was on TPN Plan - Back on low dose versed due to seizure - on insulin gtt - Keppra per Neuro - Mechanical ventilation per Pulmonary - c/w TF - Solumedrol per pulmonary - c.w Vancomycin/ zosyn and diflucan today - f/u Joyce cx - c/w iv lasix - c/w levothyroxine - c/w pepcid and lovenox - Pulmonary recommended + Tracheostomy Problems: Subjective 24 Hr Interval Summary Free Text/Dictation Pt opened eyes Responding to finger pinching on FI02 100 Exam/Review of Systems Vital Signs Vitals Vital Signs Date Time Temp Pulse Resp B/P Pulse Ox O2 Delivery O2 Flow Rate FiO2 09/06/17 08:00 98.2 91 26 147/97 95 Mechanical Ventilator 09/06/17 05:13 100 Intake and Output 09/05/17 09/05/17 09/06/17 15:00 23:00 07:00 Intake Total 792.5 ml 1114.5 ml 776 ml Output Total 1495 ml 895 ml 750 ml Balance -702.5 ml 219.5 ml 26 ml Exam Gen: Unresponsive to verbal commands, slight movement on heavy sternal rub, pupils 4-5 mm, eyes open HEENT: Blood shot eyes Neck:thick Lungs: decreased breath sounds b/l Abdomen: distended, soft Ext +edema Fagan Picc line Results Result Diagram: 09/06/17 0330 09/06/17 0330 Results 24 hrs Laboratory Tests Test 09/05/17 12:47 09/05/17 16:30 09/05/17 17:34 09/05/17 18:17 Bedside Glucose 267 H 219 228 H 228 H Test 09/05/17 18:57 09/05/17 19:59 09/05/17 21:16 09/05/17 22:22 Bedside Glucose 221 H 177 150 156 Test 09/05/17 23:05 09/06/17 00:18 09/06/17 01:04 09/06/17 02:13 Bedside Glucose 152 143 174 156 Test 09/06/17 03:30 09/06/17 04:18 09/06/17 05:00 09/06/17 05:17 White Blood Count 12.2 H Red Blood Count 6.25 H Hemoglobin 17.0 Hematocrit 56.0 H Mean Corpuscular Volume 89.6 Mean Corpuscular Hemoglobin 27.2 L Mean Corpuscular Hemoglobin Concent 30.4 L Red Cell Distribution Width 18.2 H Platelet Count 257 Mean Platelet Volume 10.2 Neutrophils % 89.2 H Lymphocytes % 4.8 L Monocytes % 4.8 Eosinophils % 0.7 Basophils % 0.1 Nucleated Red Blood Cells % 0.0 Neutrophils # 10.9 H Lymphocytes # 0.6 L Monocytes # 0.6 Eosinophils # 0.1 Basophils # 0.0 Nucleated Red Blood Cells # 0.0 Sodium Level 147 H Potassium Level 3.9 Chloride Level 106 Carbon Dioxide Level 29 Anion Gap 16 Blood Urea Nitrogen 28 H Creatinine 0.76 Glucose Level 196 Calcium Level 9.1 Total Bilirubin 1.9 H Direct Bilirubin 0.00 # Indirect Bilirubin 1.9 H Aspartate Amino Transf (AST/SGOT) 38 Alanine Aminotransferase (ALT/SGPT) 104 H Alkaline Phosphatase 38 L Total Protein 6.0 L Albumin 3.0 L Globulin 3.00 Albumin/Globulin Ratio 1.00 Bedside Glucose 148 152 Phosphorus Level 4.0 Magnesium Level 1.8 Test 09/06/17 06:24 09/06/17 06:54 09/06/17 08:09 Bedside Glucose 153 161 134 Medications Medications Current Medications Flumazenil (Romazicon) 0.2 mg Q1M PRN IV BENZODIAZEPINE OVERDOSE; Start at 07:30 Naloxone HCl (Narcan) 0.4 mg Q3M PRN IV DECREASED REPIRATORY RATE; Start at 07:30 Ondansetron HCl (Zofran Inj) 4 mg Q6H PRN IV NAUSEA AND/OR VOMITING; Start 08/24/17 at 07:30 Nitroglycerin (Nitroglycerin (Sl Tab) 0.4 Mg) 1 tab Q5M PRN SL CHEST PAIN; Start 08/24/17 at 07:30 Acetaminophen (Tylenol Liquid) 650 mg Q6H PRN PO PAIN LEVEL 1-3 OR FEVER Last administered on 09/06/17 00:25; Admin Dose 650 MG; Start 08/24/17 at 07:30 Acetaminophen (Tylenol Tab) 650 mg Q6H PRN PO PAIN LEVEL 1-3 OR FEVER Last administered on 09/04/17 21:00; Admin Dose 650 MG; Start 08/24/17 at 07:30 Acetaminophen (Tylenol Supp) 650 mg Q4H PRN IN PAIN LEVEL 1-3 OR TEMP > 37C Last administered on 09/03/17 20:00; Admin Dose 650 MG; Start 08/24/17 at 07: 30 Ibuprofen (Motrin) 600 mg Q6H PRN PO PAIN LEVEL 1-3 OR FEVER; Start 08/24/17 at 07:30 Acetaminophen/ Hydrocodone Bitart ([place] (5/325)) 1 tab Q6H PRN PO PAIN LEVEL 4 -6; Start 08/24/17 at 07:30 Morphine Sulfate (morphine) 2 mg Q4H PRN IV PAIN LEVEL 7-10 Last administered on 09/03/17 22:18; Admin Dose 2 MG; Start 08/24/17 at 07:30 Lorazepam (Ativan) 1 mg Q2H PRN IV ANXIETY Last administered on 09/04/17 00: 02; Admin Dose 1 MG; Start 08/24/17 at 07:30 Docusate Sodium (Colace) 100 mg Q12H PRN PO CONSTIPATION; Start 08/24/17 at 07: 30 Magnesium Hydroxide (Milk Of Mag) 30 ml DAILY PRN PO CONSTIPATION; Start at 07:30 Bisacodyl (Dulcolax) 5 mg DAILY PRN PO CONSTIPATION; Start 08/24/17 at 07:30 Bisacodyl (Dulcolax Supp) 10 mg DAILY PRN IN CONSTIPATION; Start 08/24/17 at 07 :30 Sodium Biphosphate/ Sodium Phosphate (Fleet Enema) 133 ml DAILY PRN IN CONSTIPATION; Start 08/24/17 at 07:30 Enoxaparin Sodium (Lovenox) 40 mg DAILY SC Last administered on 09/06/17 08: 40; Admin Dose 40 MG; Start 08/24/17 at 09:00 Hydralazine HCl (Apresoline) 10 mg Q6H PRN IV ELEVATED BLOOD PRESSURE Last administered on 09/05/17 02:12; Admin Dose 10 MG; Start 08/24/17 at 15:30 Meperidine HCl (Demerol) 12.5 mg Q4H PRN IV POST OPERATIVE SHIVERING; Start at 18:30 Meperidine HCl (Demerol) 25 mg Q4H PRN IV POST OPERATIVE SHIVERING; Start 08/24 at 18:30 Eye Lubricant (Akwa Oint) 1 applic Q6 BOTH EYES Last administered on 05:58; Admin Dose 1 APPLIC; Start 08/24/17 at 18:30 Eye Lubricant 2 drop 2 drop Q6 BOTH EYES Last administered on 09/06/17 05:59 ; Admin Dose 2 DROP; Start 08/24/17 at 18:30 Norepinephrine 16 mg/Dextrose 500 ml @ 1.87 mls/hr TITRATE IV Last administered on 08/26/17 14:32; Admin Dose 22.5 MLS/HR; Start 08/26/17 at 13:30 Fentanyl (Sublimaze) 100 ml @ 2.5 mls/hr TITRATE IV Last administered on 09/02 22:53; Admin Dose 10 MLS/HR; Start 08/27/17 at 09:30 Miscellaneous Information 1 ea NOTE XX ; Start 08/28/17 at 11:30 IV Flush (NS 10 ml) 10 ml PRN PRN IV IV PROTOCOL; Start 08/28/17 at 14:00 Miscellaneous Information (Pending [facility] Order For Wound Care) This patient almanza... PRN PRN XX WOUND CARE; Start 08/28/17 at 23:00 Furosemide (Lasix) 40 mg DAILY IV Last administered on 09/06/17 08:35; Admin Dose 40 MG; Start 08/30/17 at 09:00 Famotidine (Pepcid Iv) 20 mg BID IV Last administered on 09/06/17 08:36; Admin Dose 20 MG; Start 08/31/17 at 09:00 Levothyroxine Sodium (Synthroid Iv) 25 mcg DAILY@06 IV Last administered on 06:04; Admin Dose 25 MCG; Start 08/31/17 at 06:00 Aspirin (Aspirin) 81 mg DAILY IN ; Start 08/31/17 at 09:00; Status Future Hold Diagnostic Test (Pha) (Accu-Chek) 1 ea 02 XX Last administered on 09/06/17 02 :14; Admin Dose 1 EA; Start 09/01/17 at 02:00 Methylprednisolone Sodium Succinate 40 mg 40 mg BID IV Last administered on 08:35; Admin Dose 40 MG; Start 09/03/17 at 21:00 Levetiracetam/ Dextrose (Keppra Iv/D5W) 107.5 ml @ 430 mls/hr Q12 IVPB Last administered on 09/06/17 08:36; Admin Dose 430 MLS/HR; Start 09/04/17 at 21: 00 Lorazepam (Ativan) 2 mg Q4 PRN IV SEIZURES; Start 09/04/17 at 19:30 Metoprolol Tartrate 25 mg 25 mg BID PO Last administered on 09/06/17 08:35; Admin Dose 25 MG; Start 09/05/17 at 21:00 Piperacillin Sod/ Tazobactam Sod (Zosyn 3.375gm/ 50 ml (Pmx)) 50 ml @ 100 mls/ hr Q8 IVPB Last administered on 09/06/17 05:59; Admin Dose 100 MLS/HR; Start 09/05/17 at 14:00 Fluconazole 100 mg 100 mg DAILY PO Last administered on 09/06/17 08:34; Admin Dose 100 MG; Start 09/05/17 at 12:30 Vancomycin HCl/ Dextrose (Vancocin/D5W) 250 ml @ 83.333 mls/ hr Q8H IVPB Last administered on 09/06/17 04:35; Admin Dose 83.333 MLS/HR; Start 09/05/17 at 21:00 Miscellaneous Information (*Rx Drug Level Order Reminder*) VANCOMYCIN TROUGH ON 08/22... ONCE ONCE XX ; Start 09/06/17 at 12:00; Stop 09/06/17 at 12:01 Diagnostic Test (Pha) (Accu-Chek) 1 ea Q1H XX Last administered on 09/06/17 08:31; Admin Dose 1 EA; Start 09/05/17 at 15:00 Dextrose (D50w Syringe) 25 ml Q15M PRN IV Till BS 80 mg/dL or above x2; Start 09/05/17 at 15:00 Dextrose 50 ml 50 ml Q15M PRN IV Till BS 80 mg/dL or above x2; Start 09/05/17 at 15:00 Midazolam HCl (Versed) 50 ml @ 1 mls/hr TITRATE IV Last administered on 02:55; Admin Dose 4 MLS/HR; Start 09/05/17 at 16:00 ELMER RAE MD Sep 06, 2017 09:04
--- NOTE | 2017-09-06 11:23 | CONS ---
Date/Time of Note Date/Time of Note DATE: 09/06/17 TIME: 11:21 Consult Date/Type/Reason Admit Date/Time Aug 24, 2017 at 07:05 Initial Consult Date 08/27/17 Type of Consultation: Pulmonary Ordering Provider: MIKE LUONG MD Subjective Eyes open. Not tracking or following commands. Remains off sedation. Off vasopressors. Objective Vital Signs Date Time Temp Pulse Resp B/P Pulse Ox O2 Delivery O2 Flow Rate FiO2 09/06/17 09:00 97 26 95 100 09/06/17 08:00 98.2 147/97 Mechanical Ventilator Intake and Output 09/05/17 09/05/17 09/06/17 15:00 23:00 07:00 Intake Total 792.5 ml 1114.5 ml 820 ml Output Total 1495 ml 895 ml 850 ml Balance -702.5 ml 219.5 ml -30 ml Exam PHYSICAL EXAMINATION: GENERAL: Well-nourished well-developed gentleman comfortable at rest on mechanical ventilation. VITAL SIGNS: NECK: Supple, no JVD or lymphadenopathy. CARDIAC: S1, S2, no added sounds or murmurs. CHEST: Diminished air entry bilaterally. ABDOMEN: Soft, nontender. No guarding or rebound. EXTREMITIES: No cyanosis, clubbing, 1+ edema. NEUROLOGIC: Vegetative state. Results/Medications Result Diagram: 09/06/17 0330 09/06/17 0330 Results 24 hrs Laboratory Tests Test 09/05/17 12:47 09/05/17 16:30 09/05/17 17:34 09/05/17 18:17 Bedside Glucose 267 H 219 228 H 228 H Test 09/05/17 18:57 09/05/17 19:59 09/05/17 21:16 09/05/17 22:22 Bedside Glucose 221 H 177 150 156 Test 09/05/17 23:05 09/06/17 00:18 09/06/17 01:04 09/06/17 02:13 Bedside Glucose 152 143 174 156 Test 09/06/17 03:30 09/06/17 04:18 09/06/17 05:00 09/06/17 05:17 White Blood Count 12.2 H Red Blood Count 6.25 H Hemoglobin 17.0 Hematocrit 56.0 H Mean Corpuscular Volume 89.6 Mean Corpuscular Hemoglobin 27.2 L Mean Corpuscular Hemoglobin Concent 30.4 L Red Cell Distribution Width 18.2 H Platelet Count 257 Mean Platelet Volume 10.2 Neutrophils % 89.2 H Lymphocytes % 4.8 L Monocytes % 4.8 Eosinophils % 0.7 Basophils % 0.1 Nucleated Red Blood Cells % 0.0 Neutrophils # 10.9 H Lymphocytes # 0.6 L Monocytes # 0.6 Eosinophils # 0.1 Basophils # 0.0 Nucleated Red Blood Cells # 0.0 Sodium Level 147 H Potassium Level 3.9 Chloride Level 106 Carbon Dioxide Level 29 Anion Gap 16 Blood Urea Nitrogen 28 H Creatinine 0.76 Glucose Level 196 Calcium Level 9.1 Total Bilirubin 1.9 H Direct Bilirubin 0.00 # Indirect Bilirubin 1.9 H Aspartate Amino Transf (AST/SGOT) 38 Alanine Aminotransferase (ALT/SGPT) 104 H Alkaline Phosphatase 38 L Total Protein 6.0 L Albumin 3.0 L Globulin 3.00 Albumin/Globulin Ratio 1.00 Bedside Glucose 148 152 Phosphorus Level 4.0 Magnesium Level 1.8 Test 09/06/17 06:24 09/06/17 06:54 09/06/17 08:09 09/06/17 09:04 Bedside Glucose 153 161 134 137 Test 09/06/17 10:28 Bedside Glucose 159 Medications Current Medications Flumazenil (Romazicon) 0.2 mg Q1M PRN IV BENZODIAZEPINE OVERDOSE; Start at 07:30 Naloxone HCl (Narcan) 0.4 mg Q3M PRN IV DECREASED REPIRATORY RATE; Start at 07:30 Ondansetron HCl (Zofran Inj) 4 mg Q6H PRN IV NAUSEA AND/OR VOMITING; Start 08/24/17 at 07:30 Nitroglycerin (Nitroglycerin (Sl Tab) 0.4 Mg) 1 tab Q5M PRN SL CHEST PAIN; Start 08/24/17 at 07:30 Acetaminophen (Tylenol Liquid) 650 mg Q6H PRN PO PAIN LEVEL 1-3 OR FEVER Last administered on 09/06/17 00:25; Admin Dose 650 MG; Start 08/24/17 at 07:30 Acetaminophen (Tylenol Tab) 650 mg Q6H PRN PO PAIN LEVEL 1-3 OR FEVER Last administered on 09/04/17 21:00; Admin Dose 650 MG; Start 08/24/17 at 07:30 Acetaminophen (Tylenol Supp) 650 mg Q4H PRN MD PAIN LEVEL 1-3 OR TEMP > 37C Last administered on 09/03/17 20:00; Admin Dose 650 MG; Start 08/24/17 at 07: 30 Ibuprofen (Motrin) 600 mg Q6H PRN PO PAIN LEVEL 1-3 OR FEVER; Start 08/24/17 at 07:30 Acetaminophen/ Hydrocodone Bitart ([place] (5/325)) 1 tab Q6H PRN PO PAIN LEVEL 4 -6; Start 08/24/17 at 07:30 Morphine Sulfate (morphine) 2 mg Q4H PRN IV PAIN LEVEL 7-10 Last administered on 09/03/17 22:18; Admin Dose 2 MG; Start 08/24/17 at 07:30 Lorazepam (Ativan) 1 mg Q2H PRN IV ANXIETY Last administered on 09/04/17 00: 02; Admin Dose 1 MG; Start 08/24/17 at 07:30 Docusate Sodium (Colace) 100 mg Q12H PRN PO CONSTIPATION; Start 08/24/17 at 07: 30 Magnesium Hydroxide (Milk Of Mag) 30 ml DAILY PRN PO CONSTIPATION; Start at 07:30 Bisacodyl (Dulcolax) 5 mg DAILY PRN PO CONSTIPATION; Start 08/24/17 at 07:30 Bisacodyl (Dulcolax Supp) 10 mg DAILY PRN MD CONSTIPATION; Start 08/24/17 at 07 :30 Sodium Biphosphate/ Sodium Phosphate (Fleet Enema) 133 ml DAILY PRN MD CONSTIPATION; Start 08/24/17 at 07:30 Enoxaparin Sodium (Lovenox) 40 mg DAILY SC Last administered on 09/06/17 08: 40; Admin Dose 40 MG; Start 08/24/17 at 09:00 Hydralazine HCl (Apresoline) 10 mg Q6H PRN IV ELEVATED BLOOD PRESSURE Last administered on 09/05/17 02:12; Admin Dose 10 MG; Start 08/24/17 at 15:30 Meperidine HCl (Demerol) 12.5 mg Q4H PRN IV POST OPERATIVE SHIVERING; Start at 18:30 Meperidine HCl (Demerol) 25 mg Q4H PRN IV POST OPERATIVE SHIVERING; Start 08/24 at 18:30 Eye Lubricant (Akwa Oint) 1 applic Q6 BOTH EYES Last administered on 05:58; Admin Dose 1 APPLIC; Start 08/24/17 at 18:30 Eye Lubricant 2 drop 2 drop Q6 BOTH EYES Last administered on 09/06/17 05:59 ; Admin Dose 2 DROP; Start 08/24/17 at 18:30 Norepinephrine 16 mg/Dextrose 500 ml @ 1.87 mls/hr TITRATE IV Last administered on 08/26/17 14:32; Admin Dose 22.5 MLS/HR; Start 08/26/17 at 13:30 Fentanyl (Sublimaze) 100 ml @ 2.5 mls/hr TITRATE IV Last administered on 09/02 22:53; Admin Dose 10 MLS/HR; Start 08/27/17 at 09:30 Miscellaneous Information 1 ea NOTE XX ; Start 08/28/17 at 11:30 IV Flush (NS 10 ml) 10 ml PRN PRN IV IV PROTOCOL; Start 08/28/17 at 14:00 Miscellaneous Information (Pending [facility] Order For Wound Care) This patient almanza... PRN PRN XX WOUND CARE; Start 08/28/17 at 23:00 Furosemide (Lasix) 40 mg DAILY IV Last administered on 09/06/17 08:35; Admin Dose 40 MG; Start 08/30/17 at 09:00 Famotidine (Pepcid Iv) 20 mg BID IV Last administered on 09/06/17 08:36; Admin Dose 20 MG; Start 08/31/17 at 09:00 Levothyroxine Sodium (Synthroid Iv) 25 mcg DAILY@06 IV Last administered on 06:04; Admin Dose 25 MCG; Start 08/31/17 at 06:00 Aspirin (Aspirin) 81 mg DAILY MD ; Start 08/31/17 at 09:00; Status Future Hold Diagnostic Test (Pha) (Accu-Chek) 1 ea 02 XX Last administered on 09/06/17 02 :14; Admin Dose 1 EA; Start 09/01/17 at 02:00 Methylprednisolone Sodium Succinate 40 mg 40 mg BID IV Last administered on 08:35; Admin Dose 40 MG; Start 09/03/17 at 21:00 Levetiracetam/ Dextrose (Keppra Iv/D5W) 107.5 ml @ 430 mls/hr Q12 IVPB Last administered on 09/06/17 08:36; Admin Dose 430 MLS/HR; Start 09/04/17 at 21: 00 Lorazepam (Ativan) 2 mg Q4 PRN IV SEIZURES; Start 09/04/17 at 19:30 Metoprolol Tartrate 25 mg 25 mg BID PO Last administered on 09/06/17 08:35; Admin Dose 25 MG; Start 09/05/17 at 21:00 Piperacillin Sod/ Tazobactam Sod (Zosyn 3.375gm/ 50 ml (Pmx)) 50 ml @ 100 mls/ hr Q8 IVPB Last administered on 09/06/17 05:59; Admin Dose 100 MLS/HR; Start 09/05/17 at 14:00 Fluconazole 100 mg 100 mg DAILY PO Last administered on 09/06/17 08:34; Admin Dose 100 MG; Start 09/05/17 at 12:30 Vancomycin HCl/ Dextrose (Vancocin/D5W) 250 ml @ 83.333 mls/ hr Q8H IVPB Last administered on 09/06/17 04:35; Admin Dose 83.333 MLS/HR; Start 09/05/17 at 21:00 Miscellaneous Information (*Rx Drug Level Order Reminder*) VANCOMYCIN TROUGH ON 08/22... ONCE ONCE XX ; Start 09/06/17 at 12:00; Stop 09/06/17 at 12:01 Diagnostic Test (Pha) (Accu-Chek) 1 ea Q1H XX Last administered on 09/06/17 10:29; Admin Dose 1 EA; Start 09/05/17 at 15:00 Dextrose (D50w Syringe) 25 ml Q15M PRN IV Till BS 80 mg/dL or above x2; Start 09/05/17 at 15:00 Dextrose 50 ml 50 ml Q15M PRN IV Till BS 80 mg/dL or above x2; Start 09/05/17 at 15:00 Midazolam HCl (Versed) 50 ml @ 1 mls/hr TITRATE IV Last administered on 02:55; Admin Dose 4 MLS/HR; Start 09/05/17 at 16:00 Assessment/Plan Chief Complaint/Hosp Course IMP: 1. s/p Cardiopulmonary arrest--likely due to aspiration and central airway obstruction 2. Seizure Disorder, agree with repeat EEG to exclude subclinical seizures. 3. Gram + bacteremia--likely contaminant 4. Probable significant anoxic brain injury 5. Hypoxemic respiratory failure. Persistent hypoxemia despite aggressive volume removal. Continues 100% FiO2 PEEP of 10 6. Morbid obesity 7. DM RECS: 1. Continue mechanical ventilation for weaning, decrease FiO2 and PEEP as tolerated. Currently on volume control ventilation. Recommend proceeding to tracheostomy as patient not weanable from ventilator. 2. Anti-epileptic Rx neuro recommendations 3. Trial of nasogastric tube feeding 4. Abx 5. F/U Cx's 6. DVT and GI prophylaxis Would proceed with tracheostomy and PEG tube placement if family wished to continue current level of care. Problems: JULIANA WASHINGTON MD, [facility] Sep 06, 2017 11:23
--- NOTE | 2017-09-06 12:55 | CONS ---
Date/Time of Note Date/Time of Note DATE: 09/06/17 TIME: 12:52 Assessment/Plan Assessment/Plan Chief Complaint/Hosp Course IMPRESSION: 1. Pulseless electrical activity cardiac arrest. EF 50% by echo this admit 2. Abnormal electrocardiogram with diffuse ST depressions but in the setting of cardiac arrest. 3. Hypotension-Now HTN 4. Tachycardia consistent with sinus tachycardia. 5. Encephalopathy. 6. History of flu-like illness. 7. Hypothyroidism. 8. Hematuria. 9. Seizure prior to drag seiner arrival 10. Lactic acidosis. 11. Leukocytosis. 12. Positive troponin-minimal in setting of cardiac arrest and now trended negative 14. bacteremia 15. Fevers 16. Hypernatremia Recc: -Tele in ICU -continue abx's and f/u cx data -Follow MS closely -Continue asa -Continue BB -add ACEI to improve BP control -Continue lasix diuresis daily -Rx fevers Problems: Consultation Date/Type/Reason Admit Date/Time Aug 24, 2017 at 07:05 Initial Consult Date 08/27/17 Type of Consultation: cardiology Reason for Consultation cardiac arrest Referring Provider: MIKE LUONG MD Exam/Review of Systems Vital Signs Vitals Vital Signs Date Time Temp Pulse Resp B/P Pulse Ox O2 Delivery O2 Flow Rate FiO2 09/06/17 12:30 93 26 144/103 88 Mechanical Ventilator 09/06/17 12:00 99.8 09/06/17 11:05 100 Intake and Output 09/05/17 09/05/17 09/06/17 15:00 23:00 07:00 Intake Total 792.5 ml 1114.5 ml 820 ml Output Total 1495 ml 895 ml 850 ml Balance -702.5 ml 219.5 ml -30 ml Exam Review of Systems: CONSTITUTIONAL: No fevers, chills. PULMONARY: No sob CARDIOVASCULAR: No chest pain/palpitations GASTROINTESTINAL: No nausea/vomiting. GENITOURINARY: No hematuria/dysuria. MUSCULOSKELETAL: No myagias/arthalgias. PSYCHIATRIC: The patient denies depression. NEUROLOGIC: No weakness Constitutional: other (encephalopathic) Psych: no complaints Head: normocephalic ENMT: intubated, mucosa pink and moist Neck: jvd (9 cm water), supple Respiratory: diminished breath sounds (at bases/B) Cardiovascular: regular rate and rhythm Gastrointestinal: non-tender, soft Musculoskeletal: muscle tone (normal) Extremities: edema (none) Results Result Diagram: 09/06/17 0330 09/06/17 0330 Results 24 hrs Laboratory Tests Test 09/05/17 16:30 09/05/17 17:34 09/05/17 18:17 09/05/17 18:57 Bedside Glucose 219 228 H 228 H 221 H Test 09/05/17 19:59 09/05/17 21:16 09/05/17 22:22 09/05/17 23:05 Bedside Glucose 177 150 156 152 Test 09/06/17 00:18 09/06/17 01:04 09/06/17 02:13 09/06/17 03:30 Bedside Glucose 143 174 156 White Blood Count 12.2 H Red Blood Count 6.25 H Hemoglobin 17.0 Hematocrit 56.0 H Mean Corpuscular Volume 89.6 Mean Corpuscular Hemoglobin 27.2 L Mean Corpuscular Hemoglobin Concent 30.4 L Red Cell Distribution Width 18.2 H Platelet Count 257 Mean Platelet Volume 10.2 Neutrophils % 89.2 H Lymphocytes % 4.8 L Monocytes % 4.8 Eosinophils % 0.7 Basophils % 0.1 Nucleated Red Blood Cells % 0.0 Neutrophils # 10.9 H Lymphocytes # 0.6 L Monocytes # 0.6 Eosinophils # 0.1 Basophils # 0.0 Nucleated Red Blood Cells # 0.0 Sodium Level 147 H Potassium Level 3.9 Chloride Level 106 Carbon Dioxide Level 29 Anion Gap 16 Blood Urea Nitrogen 28 H Creatinine 0.76 Glucose Level 196 Calcium Level 9.1 Total Bilirubin 1.9 H Direct Bilirubin 0.00 # Indirect Bilirubin 1.9 H Aspartate Amino Transf (AST/SGOT) 38 Alanine Aminotransferase (ALT/SGPT) 104 H Alkaline Phosphatase 38 L Total Protein 6.0 L Albumin 3.0 L Globulin 3.00 Albumin/Globulin Ratio 1.00 Test 09/06/17 04:18 09/06/17 05:00 09/06/17 05:17 09/06/17 06:24 Bedside Glucose 148 152 153 Phosphorus Level 4.0 Magnesium Level 1.8 Test 09/06/17 06:54 09/06/17 08:09 09/06/17 09:04 09/06/17 10:28 Bedside Glucose 161 134 137 159 Test 09/06/17 11:31 09/06/17 12:25 Bedside Glucose 167 142 Medications Medications Current Medications Flumazenil (Romazicon) 0.2 mg Q1M PRN IV BENZODIAZEPINE OVERDOSE; Start at 07:30 Naloxone HCl (Narcan) 0.4 mg Q3M PRN IV DECREASED REPIRATORY RATE; Start at 07:30 Ondansetron HCl (Zofran Inj) 4 mg Q6H PRN IV NAUSEA AND/OR VOMITING; Start 08/24/17 at 07:30 Nitroglycerin (Nitroglycerin (Sl Tab) 0.4 Mg) 1 tab Q5M PRN SL CHEST PAIN; Start 08/24/17 at 07:30 Acetaminophen (Tylenol Liquid) 650 mg Q6H PRN PO PAIN LEVEL 1-3 OR FEVER Last administered on 09/06/17 00:25; Admin Dose 650 MG; Start 08/24/17 at 07:30 Acetaminophen (Tylenol Tab) 650 mg Q6H PRN PO PAIN LEVEL 1-3 OR FEVER Last administered on 09/04/17 21:00; Admin Dose 650 MG; Start 08/24/17 at 07:30 Acetaminophen (Tylenol Supp) 650 mg Q4H PRN [place] PAIN LEVEL 1-3 OR TEMP > 37C Last administered on 09/03/17 20:00; Admin Dose 650 MG; Start 08/24/17 at 07: 30 Ibuprofen (Motrin) 600 mg Q6H PRN PO PAIN LEVEL 1-3 OR FEVER; Start 08/24/17 at 07:30 Acetaminophen/ Hydrocodone Bitart ([place] (5/325)) 1 tab Q6H PRN PO PAIN LEVEL 4 -6; Start 08/24/17 at 07:30 Morphine Sulfate (morphine) 2 mg Q4H PRN IV PAIN LEVEL 7-10 Last administered on 09/03/17 22:18; Admin Dose 2 MG; Start 08/24/17 at 07:30 Lorazepam (Ativan) 1 mg Q2H PRN IV ANXIETY Last administered on 09/04/17 00: 02; Admin Dose 1 MG; Start 08/24/17 at 07:30 Docusate Sodium (Colace) 100 mg Q12H PRN PO CONSTIPATION; Start 08/24/17 at 07: 30 Magnesium Hydroxide (Milk Of Mag) 30 ml DAILY PRN PO CONSTIPATION; Start at 07:30 Bisacodyl (Dulcolax) 5 mg DAILY PRN PO CONSTIPATION; Start 08/24/17 at 07:30 Bisacodyl (Dulcolax Supp) 10 mg DAILY PRN [place] CONSTIPATION; Start 08/24/17 at 07 :30 Sodium Biphosphate/ Sodium Phosphate (Fleet Enema) 133 ml DAILY PRN [place] CONSTIPATION; Start 08/24/17 at 07:30 Enoxaparin Sodium (Lovenox) 40 mg DAILY SC Last administered on 09/06/17 08: 40; Admin Dose 40 MG; Start 08/24/17 at 09:00 Hydralazine HCl (Apresoline) 10 mg Q6H PRN IV ELEVATED BLOOD PRESSURE Last administered on 09/05/17 02:12; Admin Dose 10 MG; Start 08/24/17 at 15:30 Meperidine HCl (Demerol) 12.5 mg Q4H PRN IV POST OPERATIVE SHIVERING; Start at 18:30 Meperidine HCl (Demerol) 25 mg Q4H PRN IV POST OPERATIVE SHIVERING; Start 08/24 at 18:30 Eye Lubricant (Akwa Oint) 1 applic Q6 BOTH EYES Last administered on 12:37; Admin Dose 1 APPLIC; Start 08/24/17 at 18:30 Eye Lubricant 2 drop 2 drop Q6 BOTH EYES Last administered on 09/06/17 12:38 ; Admin Dose 2 DROP; Start 08/24/17 at 18:30 Norepinephrine 16 mg/Dextrose 500 ml @ 1.87 mls/hr TITRATE IV Last administered on 08/26/17 14:32; Admin Dose 22.5 MLS/HR; Start 08/26/17 at 13:30 Fentanyl (Sublimaze) 100 ml @ 2.5 mls/hr TITRATE IV Last administered on 09/02 22:53; Admin Dose 10 MLS/HR; Start 08/27/17 at 09:30 Miscellaneous Information 1 ea NOTE XX ; Start 08/28/17 at 11:30 IV Flush (NS 10 ml) 10 ml PRN PRN IV IV PROTOCOL; Start 08/28/17 at 14:00 Miscellaneous Information (Pending [facility] Order For Wound Care) This patient almanza... PRN PRN XX WOUND CARE; Start 08/28/17 at 23:00 Furosemide (Lasix) 40 mg DAILY IV Last administered on 09/06/17 08:35; Admin Dose 40 MG; Start 08/30/17 at 09:00 Famotidine (Pepcid Iv) 20 mg BID IV Last administered on 09/06/17 08:36; Admin Dose 20 MG; Start 08/31/17 at 09:00 Levothyroxine Sodium (Synthroid Iv) 25 mcg DAILY@06 IV Last administered on 06:04; Admin Dose 25 MCG; Start 08/31/17 at 06:00 Aspirin (Aspirin) 81 mg DAILY ND ; Start 08/31/17 at 09:00; Status Future Hold Diagnostic Test (Pha) (Accu-Chek) 1 ea 02 XX Last administered on 09/06/17 02 :14; Admin Dose 1 EA; Start 09/01/17 at 02:00 Methylprednisolone Sodium Succinate 40 mg 40 mg BID IV Last administered on 08:35; Admin Dose 40 MG; Start 09/03/17 at 21:00 Levetiracetam/ Dextrose (Keppra Iv/D5W) 107.5 ml @ 430 mls/hr Q12 IVPB Last administered on 09/06/17 08:36; Admin Dose 430 MLS/HR; Start 09/04/17 at 21: 00 Lorazepam (Ativan) 2 mg Q4 PRN IV SEIZURES; Start 09/04/17 at 19:30 Metoprolol Tartrate 25 mg 25 mg BID PO Last administered on 09/06/17 08:35; Admin Dose 25 MG; Start 09/05/17 at 21:00 Piperacillin Sod/ Tazobactam Sod (Zosyn 3.375gm/ 50 ml (Pmx)) 50 ml @ 100 mls/ hr Q8 IVPB Last administered on 09/06/17 05:59; Admin Dose 100 MLS/HR; Start 09/05/17 at 14:00 Fluconazole 100 mg 100 mg DAILY PO Last administered on 09/06/17 08:34; Admin Dose 100 MG; Start 09/05/17 at 12:30 Vancomycin HCl/ Dextrose (Vancocin/D5W) 250 ml @ 83.333 mls/ hr Q8H IVPB Last administered on 09/06/17 04:35; Admin Dose 83.333 MLS/HR; Start 09/05/17 at 21:00 Diagnostic Test (Pha) (Accu-Chek) 1 ea Q1H XX Last administered on 09/06/17 12:25; Admin Dose 1 EA; Start 09/05/17 at 15:00 Dextrose (D50w Syringe) 25 ml Q15M PRN IV Till BS 80 mg/dL or above x2; Start 09/05/17 at 15:00 Dextrose 50 ml 50 ml Q15M PRN IV Till BS 80 mg/dL or above x2; Start 09/05/17 at 15:00 Midazolam HCl (Versed) 50 ml @ 1 mls/hr TITRATE IV Last administered on 02:55; Admin Dose 4 MLS/HR; Start 09/05/17 at 16:00 SKYLAR ABDALLA Sep 06, 2017 12:55
[2017-09-06] MEDS: BENAZEPRIL 10 MG TAB PO SCH ×2 (13:30→20:39)
[2017-09-06] MEDS: FAMOTIDINE 20 MG TAB PO SCH (20:40)
[2017-09-07] VITALS (36 sets, daily range): BP systolic 99–150; BP diastolic 67–105; PULSE 73–123; RESP 11–28
[2017-09-07] MEDS: VALPROATE INJ 500 MG in SOD CHLORIDE 0.9% 50 ML IVPB SCH ×4 (00:06→18:25)
[2017-09-07] MEDS: IPRATROPIUM (HFA) 12.9 GM INHALER INH SCH ×3 (01:18→08:43)
[2017-09-07] MEDS: ALBUTEROL HFA 8 GM INHALER INH SCH ×3 (01:18→08:43)
[2017-09-07] MEDS: ACCU-CHEK XX SCH ×13 (01:50→12:04)
[2017-09-07 05:24] LABS: BASOPHILS % 0.1 % (0.0-2.0); EOSINOPHILS # 0.1 10^3/ul (0.0-0.5); EOSINOPHILS % 0.7 % (0.0-7.0); HEMATOCRIT 55.3 % (42.0-52.0); HEMOGLOBIN 16.9 g/dl (14.0-18.0); LYMPHOCYTES # 0.8 10^3/ul (0.8-2.9); LYMPHOCYTES % 6.6 % (15.0-51.0); MEAN CORPUSCULAR HEMOGLOBIN 27.2 pg (29.0-33.0); MEAN CORPUSCULAR HGB CONC 30.6 g/dl (32.0-37.0); MEAN CORPUSCULAR VOLUME 88.9 fl (82.0-101.0); MONOCYTE # 0.6 10^3/ul (0.3-0.9); MONOCYTES % 4.8 % (0.0-11.0); NEUTROPHIL # 10.5 10^3/ul (1.6-7.5); NEUTROPHILS % 87.1 % (39.0-77.0); PLATELET COUNT 267 10^3/UL (140-415); RED BLOOD COUNT 6.22 10^6/ul (4.70-6.10); RED CELL DISTRIBUTION WIDTH 17.6 % (11.5-14.5)
[2017-09-07] MEDS: LEVOTHYROXINE 100 MCG VIAL IV SCH (05:26)
[2017-09-07] MEDS: VANCOMYCIN 1.5 GM in DEXTROSE 5% 250 ML IVPB SCH (05:27)
[2017-09-07] MEDS: ARTIFICIAL TEARS 15 ML OPH BOTH EYES SCH (05:27)
[2017-09-07] MEDS: OCULAR LUBRICANT 3.5 GM OPH OINT BOTH EYES SCH (05:27)
[2017-09-07] MEDS: PIPER-TAZO 3.375 GM IV (PMX) 50 ML IVPB SCH (05:27)
--- NOTE | 2017-09-07 05:33 | PN ---
DATE: 09/06/2017 SUBJECTIVE: Patient remains unchanged, still with low-grade fevers on FIO2 of 100 and PEEP of 10. Tolerates tube feeding. He is sedated with Versed but per report, opens eyes; however, does not fol low commands. WBC today 12.2, H 17 and 56, platelets 257, neutrophils 89.2, BUN 28, creatinine 0.76 . MICROBIOLOGY: Repeat cultures pending. ANTIMICROBIALS: The patient was restarted on vancomycin and Zosyn yesterday. He is also on flucona zole. INDWELLING: Endotracheal tube, NG tube, Fagan catheter, PICC line placed on 08/27/2017. PHYSICAL EXAMINATION: GENERAL: Morbidly obese, well-developed, middle-aged man who is in no distress. HEENT: Head atraumatic, normocephalic. Sclerae anicteric. Buccal mucosa dry. NECK: Supple. CHEST: Rise symmetrical. Breath sounds diminished to bases. HEART: S1, S2. ABDOMEN: Soft, bowel tones present. EXTREMITIES: With trace edema. ASSESSMENT: 1. Sepsis with fevers and leukocytosis, restarted on broad-spectrum antibiotics, cultures are pendi ng. 2. Acute respiratory failure. 3. Acute encephalopathy, status post cardiopulmonary arrest with EEG revealing anoxia. 4. Status post aspiration. 5. Diabetes. 6. Coagulase-negative Staphylococcus bacteremia with repeat blood cultures being negative. PLAN: The patient remains hemodynamically stable. Continue present care, antibiotics. Await for f inal cultures. Follow recommendations of specialists. Dictated By: BEKA WATKINS PIPELINE DISPATCHER for JORDAN CHILDS MD NI/NTS Conf#: [id number] DID#: [id number] CC: MIKE LUONG MD;*EndCC*
[2017-09-07 05:39] LABS: CALCIUM 9.5 mg/dl (8.4-10.2); CREATININE 0.64 mg/dl (0.61-1.24); POTASSIUM 4.2 mmol/L (3.5-5.1)
[2017-09-07] MEDS: MIDAZOLAM (DRIP) 50 mg/50 mL 50 ML IV SCH ×2 (05:48→21:39)
--- NOTE | 2017-09-07 06:27 | CONS ---
DATE OF ADMISSION: 08/24/2017 DATE OF CONSULTATION: The patient is 39 years old status post cardiopulmonary arrest, anoxic encephalopathy, sepsis. On e xam today, he becomes unresponsive, does not follow verbal command. Admitted with leukocytosis, lac tic acidosis, sepsis, hypotension, tachycardia. PHYSICAL EXAMINATION CRANIAL: Pupil was sluggishly reactive to light, equal on both sides in the III, IV and . Was in tact for maneuver, V and VII intact corneal reflex, VIII through XII could not assess. MOTOR: Slight withdrawal for painful stimuli . HEART: Regular rate and rhythm. LUNGS: Equal breath sounds. ABDOMEN: Soft, relaxed, nondistended. No tenderness. ASSESSMENT AND PLAN: The patient is 59 years old status post cardiopulmonary arrest. 1. Severe anoxic encephalopathy, probably secondary to #1. 2. Abnormal EEG with bilateral blebs and we are adjusting his dose for Keppra. Will increase it. I am going to add for him Depakote 750 twice a day. Patient is already on Versed and he is under in tubation. 3. History of underlying septic shock with leukocytosis and IV antibiotic. 4. Status post cardiopulmonary arrest with diffuse ST depression. Dictated By: JULY KOLB/YESI Conf#: [id number] DID#: [id number]
--- NOTE | 2017-09-07 06:27 | NEURPT ---
DATE: ELECTROENCEPHALOGRAM INDICATIONS: The patient is 36 years old status post-acute respiratory failure , cardiopulmonary arrest. The patient is intubated on Lantus, Keppra, Ativan as needed, Solu-Medrol, NovoLog, Synthroid, Lasix and midazolam. EEG done using 10-20 International electrode system with photic stimulation exposing bilateral bleds with flat line in between. IMPRESSION: Abnormal encephalogram showing bilateral bleds with flat line in between consistent with underlying severe encephalopathy with some epiliptiform activity. Will maximize his medications, follow up the patient with electroencephalogram. Dictated By: JULY KOLB/YESI Conf#: [id number] DID#: [id number] MTDMeron
--- NOTE | 2017-09-07 07:14 | CONS ---
Date/Time of Note Date/Time of Note DATE: 09/07/17 TIME: 07:12 Consultation Date/Type/Reason Admit Date/Time Aug 24, 2017 at 07:05 Initial Consult Date 08/27/17 Type of Consultation: Palliative care Referring Provider: MIKE LUONG MD 24 HR Interval Summary Free Text/Dictation I spoken the patient's family on 2 occasions thus far in discuss goals of care patient's present neurological condition chances of successful extubation per Dr. Arabella Smith notes that I have reviewed. I was contacted by [employer] work service yesterday another meeting with family members have been scheduled for 1100 hrs. I will discuss all palliative care issues and follow-up note will be done especially CODE STATUS. Exam/Review of Systems Vital Signs Vitals Vital Signs Date Time Temp Pulse Resp B/P Pulse Ox O2 Delivery O2 Flow Rate FiO2 09/07/17 06:00 78 26 120/80 97 Mechanical Ventilator 09/07/17 05:39 80 09/07/17 04:00 98.6 Intake and Output 09/06/17 09/06/17 09/07/17 15:00 23:00 07:00 Intake Total 855.5 ml 802.499 ml 613.001 ml Output Total 3000 ml 1235 ml 990 ml Balance -2144.5 ml -432.501 ml -376.999 ml Results Result Diagram: 09/07/17 0425 09/07/17 0425 Results 24 hrs Laboratory Tests Test 09/06/17 08:09 09/06/17 09:04 09/06/17 10:28 09/06/17 11:31 Bedside Glucose 134 137 159 167 Test 09/06/17 12:25 09/06/17 12:30 09/06/17 13:20 09/06/17 14:15 Bedside Glucose 142 151 144 Vancomycin Level Trough 13.0 Test 09/06/17 15:07 09/06/17 16:28 09/06/17 17:25 09/06/17 18:10 Bedside Glucose 169 160 168 157 Test 09/06/17 19:40 09/06/17 20:37 09/06/17 21:25 09/06/17 22:52 Bedside Glucose 154 147 151 157 Test 09/06/17 23:42 09/07/17 01:03 09/07/17 02:10 09/07/17 03:09 Bedside Glucose 173 169 169 168 Test 09/07/17 03:58 09/07/17 04:25 09/07/17 05:17 09/07/17 06:04 Bedside Glucose 172 176 152 White Blood Count 12.0 H Red Blood Count 6.22 H Hemoglobin 16.9 Hematocrit 55.3 H Mean Corpuscular Volume 88.9 Mean Corpuscular Hemoglobin 27.2 L Mean Corpuscular Hemoglobin Concent 30.6 L Red Cell Distribution Width 17.6 H Platelet Count 267 Mean Platelet Volume 11.0 H Neutrophils % 87.1 H Lymphocytes % 6.6 L Monocytes % 4.8 Eosinophils % 0.7 Basophils % 0.1 Nucleated Red Blood Cells % 0.0 Neutrophils # 10.5 H Lymphocytes # 0.8 Monocytes # 0.6 Eosinophils # 0.1 Basophils # 0.0 Nucleated Red Blood Cells # 0.0 Sodium Level 142 Potassium Level 4.2 Chloride Level 108 Carbon Dioxide Level 26 Anion Gap 12 Blood Urea Nitrogen 29 H Creatinine 0.64 Glucose Level 211 Calcium Level 9.5 Test 09/07/17 06:59 Bedside Glucose 166 Medications Medications Current Medications Flumazenil (Romazicon) 0.2 mg Q1M PRN IV BENZODIAZEPINE OVERDOSE; Start at 07:30 Naloxone HCl (Narcan) 0.4 mg Q3M PRN IV DECREASED REPIRATORY RATE; Start at 07:30 Ondansetron HCl (Zofran Inj) 4 mg Q6H PRN IV NAUSEA AND/OR VOMITING; Start 08/24/17 at 07:30 Nitroglycerin (Nitroglycerin (Sl Tab) 0.4 Mg) 1 tab Q5M PRN SL CHEST PAIN; Start 08/24/17 at 07:30 Acetaminophen (Tylenol Liquid) 650 mg Q6H PRN PO PAIN LEVEL 1-3 OR FEVER Last administered on 09/06/17 00:25; Admin Dose 650 MG; Start 08/24/17 at 07:30 Acetaminophen (Tylenol Tab) 650 mg Q6H PRN PO PAIN LEVEL 1-3 OR FEVER Last administered on 09/04/17 21:00; Admin Dose 650 MG; Start 08/24/17 at 07:30 Acetaminophen (Tylenol Supp) 650 mg Q4H PRN [place] PAIN LEVEL 1-3 OR TEMP > 37C Last administered on 09/03/17 20:00; Admin Dose 650 MG; Start 08/24/17 at 07: 30 Ibuprofen (Motrin) 600 mg Q6H PRN PO PAIN LEVEL 1-3 OR FEVER; Start 08/24/17 at 07:30 Acetaminophen/ Hydrocodone Bitart ([place] (5/325)) 1 tab Q6H PRN PO PAIN LEVEL 4 -6; Start 08/24/17 at 07:30 Morphine Sulfate (morphine) 2 mg Q4H PRN IV PAIN LEVEL 7-10 Last administered on 09/03/17 22:18; Admin Dose 2 MG; Start 08/24/17 at 07:30 Lorazepam (Ativan) 1 mg Q2H PRN IV ANXIETY Last administered on 09/04/17 00: 02; Admin Dose 1 MG; Start 08/24/17 at 07:30 Docusate Sodium (Colace) 100 mg Q12H PRN PO CONSTIPATION; Start 08/24/17 at 07: 30 Magnesium Hydroxide (Milk Of Mag) 30 ml DAILY PRN PO CONSTIPATION; Start at 07:30 Bisacodyl (Dulcolax) 5 mg DAILY PRN PO CONSTIPATION; Start 08/24/17 at 07:30 Bisacodyl (Dulcolax Supp) 10 mg DAILY PRN [place] CONSTIPATION; Start 08/24/17 at 07 :30 Sodium Biphosphate/ Sodium Phosphate (Fleet Enema) 133 ml DAILY PRN [place] CONSTIPATION; Start 08/24/17 at 07:30 Enoxaparin Sodium (Lovenox) 40 mg DAILY SC Last administered on 09/06/17 08: 40; Admin Dose 40 MG; Start 08/24/17 at 09:00 Hydralazine HCl (Apresoline) 10 mg Q6H PRN IV ELEVATED BLOOD PRESSURE Last administered on 09/05/17 02:12; Admin Dose 10 MG; Start 08/24/17 at 15:30 Meperidine HCl (Demerol) 12.5 mg Q4H PRN IV POST OPERATIVE SHIVERING; Start at 18:30 Meperidine HCl (Demerol) 25 mg Q4H PRN IV POST OPERATIVE SHIVERING; Start 08/24 at 18:30 Eye Lubricant (Akwa Oint) 1 applic Q6 BOTH EYES Last administered on 05:27; Admin Dose 1 APPLIC; Start 08/24/17 at 18:30 Eye Lubricant 2 drop 2 drop Q6 BOTH EYES Last administered on 09/07/17 05:27 ; Admin Dose 2 DROP; Start 08/24/17 at 18:30 Norepinephrine 16 mg/Dextrose 500 ml @ 1.87 mls/hr TITRATE IV Last administered on 08/26/17 14:32; Admin Dose 22.5 MLS/HR; Start 08/26/17 at 13:30 Fentanyl (Sublimaze) 100 ml @ 2.5 mls/hr TITRATE IV Last administered on 09/02 22:53; Admin Dose 10 MLS/HR; Start 08/27/17 at 09:30 Miscellaneous Information 1 ea NOTE XX ; Start 08/28/17 at 11:30 IV Flush (NS 10 ml) 10 ml PRN PRN IV IV PROTOCOL; Start 08/28/17 at 14:00 Miscellaneous Information (Pending [facility] Order For Wound Care) This patient almanza... PRN PRN XX WOUND CARE; Start 08/28/17 at 23:00 Furosemide (Lasix) 40 mg DAILY IV Last administered on 09/06/17 08:35; Admin Dose 40 MG; Start 08/30/17 at 09:00 Levothyroxine Sodium (Synthroid Iv) 25 mcg DAILY@06 IV Last administered on 05:26; Admin Dose 25 MCG; Start 08/31/17 at 06:00 Aspirin (Aspirin) 81 mg DAILY [place] ; Start 08/31/17 at 09:00; Status Future Hold Diagnostic Test (Pha) (Accu-Chek) 1 ea 02 XX Last administered on 09/07/17 02 :11; Admin Dose 1 EA; Start 09/01/17 at 02:00 Methylprednisolone Sodium Succinate 40 mg 40 mg BID IV Last administered on 20:38; Admin Dose 40 MG; Start 09/03/17 at 21:00 Levetiracetam/ Dextrose (Keppra Iv/D5W) 107.5 ml @ 430 mls/hr Q12 IVPB Last administered on 09/06/17 20:39; Admin Dose 430 MLS/HR; Start 09/04/17 at 21: 00 Lorazepam (Ativan) 2 mg Q4 PRN IV SEIZURES; Start 09/04/17 at 19:30 Metoprolol Tartrate 25 mg 25 mg BID PO Last administered on 09/06/17 20:40; Admin Dose 25 MG; Start 09/05/17 at 21:00 Piperacillin Sod/ Tazobactam Sod (Zosyn 3.375gm/ 50 ml (Pmx)) 50 ml @ 100 mls/ hr Q8 IVPB Last administered on 09/07/17 05:27; Admin Dose 100 MLS/HR; Start 09/05/17 at 14:00 Fluconazole 100 mg 100 mg DAILY PO Last administered on 09/06/17 08:34; Admin Dose 100 MG; Start 09/05/17 at 12:30 Vancomycin HCl/ Dextrose (Vancocin/D5W) 250 ml @ 83.333 mls/ hr Q8H IVPB Last administered on 09/07/17 05:27; Admin Dose 83.333 MLS/HR; Start 09/05/17 at 21:00 Diagnostic Test (Pha) (Accu-Chek) 1 ea Q1H XX Last administered on 09/07/17 07:01; Admin Dose 1 EA; Start 09/05/17 at 15:00 Dextrose (D50w Syringe) 25 ml Q15M PRN IV Till BS 80 mg/dL or above x2; Start 09/05/17 at 15:00 Dextrose 50 ml 50 ml Q15M PRN IV Till BS 80 mg/dL or above x2; Start 09/05/17 at 15:00 Midazolam HCl (Versed) 50 ml @ 1 mls/hr TITRATE IV Last administered on 05:48; Admin Dose 4 MLS/HR; Start 09/05/17 at 16:00 Benazepril HCl (Lotensin) 10 mg BID PO Last administered on 09/06/17 20:39; Admin Dose 10 MG; Start 09/06/17 at 13:00 Famotidine 20 mg 20 mg BID PO Last administered on 09/06/17 20:40; Admin Dose 20 MG; Start 09/06/17 at 21:00 Valproate Sodium/ Sodium Chloride (Depacon/NS) 55 ml @ 55 mls/hr Q6 IVPB Last administered on 09/07/17 05:27; Admin Dose 55 MLS/HR; Start 09/07/17 at 00:00 NETTA ROMERO Sep 07, 2017 07:14
[2017-09-07] MEDS: FAMOTIDINE 20 MG TAB PO SCH (08:12)
[2017-09-07] MEDS: FLUCONAZOLE 100 MG TAB PO SCH (08:12)
[2017-09-07] MEDS: BENAZEPRIL 10 MG TAB PO SCH (08:12)
[2017-09-07] MEDS: METOPROLOL 25 MG TAB PO SCH (08:12)
[2017-09-07] MEDS: METHYLPREDNISOLONE 40 MG INJ IV SCH (08:13)
[2017-09-07] MEDS: FUROSEMIDE 40 MG INJ IV SCH (08:13)
[2017-09-07] MEDS: ENOXAPARIN 40 MG/0.4 ML SYG SC SCH (08:14)
[2017-09-07] MEDS: LEVETIRACETAM IV 750 MG in DEXTROSE 5% 100 ML IVPB SCH ×2 (08:18→21:39)
--- NOTE | 2017-09-07 09:35 | CONS ---
Date/Time of Note Date/Time of Note DATE: 09/07/17 TIME: 09:32 Assessment/Plan Assessment/Plan Chief Complaint/Hosp Course IMPRESSION: 1. Pulseless electrical activity cardiac arrest. EF 50% by echo this admit- no recurrent arrythmia. Likley initial respiratory driven 2. Abnormal electrocardiogram with diffuse ST depressions but in the setting of cardiac arrest. 3. Hypotension-Now HTN 4. Tachycardia consistent with sinus tachycardia. 5. Encephalopathy. 6. History of flu-like illness. 7. Hypothyroidism. 8. Hematuria. 9. Seizure-recurrent per report when sedation lightened 10. Lactic acidosis. 11. Leukocytosis. 12. Positive troponin-minimal in setting of cardiac arrest and now trended negative 14. bacteremia 15. Fevers 16. Hypernatremia-improved Recc: -Tele in ICU -continue abx's and f/u cx data -Follow MS closely -Continue asa -Continue BB/ACEI and follow BP clsoely -Continue lasix diuresis daily -Rx fevers -pnding family meeting Problems: Consultation Date/Type/Reason Admit Date/Time Aug 24, 2017 at 07:05 Initial Consult Date 08/27/17 Type of Consultation: cardiology Reason for Consultation cardiac arrest Referring Provider: MIKE LUONG MD Exam/Review of Systems Vital Signs Vitals Vital Signs Date Time Temp Pulse Resp B/P Pulse Ox O2 Delivery O2 Flow Rate FiO2 09/07/17 08:00 98.6 80 26 124/80 93 Mechanical Ventilator 09/07/17 05:39 80 Intake and Output 09/06/17 09/06/17 09/07/17 14:59 22:59 06:59 Intake Total 798.5 ml 776.166 ml 678.334 ml Output Total 2950 ml 1235 ml 1140 ml Balance -2151.5 ml -458.834 ml -461.666 ml Exam Review of Systems: CONSTITUTIONAL: No fevers, chills. PULMONARY: No sob CARDIOVASCULAR: No chest pain/palpitations GASTROINTESTINAL: No nausea/vomiting. GENITOURINARY: No hematuria/dysuria. MUSCULOSKELETAL: No myagias/arthalgias. PSYCHIATRIC: The patient denies depression. NEUROLOGIC: encephalopathic Constitutional: other (encephalopathic) Psych: no complaints Head: normocephalic ENMT: mucosa pink and moist Neck: jvd (9 cm water), supple Respiratory: diminished breath sounds (at bases/B) Cardiovascular: regular rate and rhythm Gastrointestinal: soft Musculoskeletal: muscle tone (normal) Extremities: edema (none) Neurological: other (encephalopathic) Results Result Diagram: 09/07/17 0425 09/07/17 0425 Results 24 hrs Laboratory Tests Test 09/06/17 10:28 09/06/17 11:31 09/06/17 12:25 09/06/17 12:30 Bedside Glucose 159 167 142 Vancomycin Level Trough 13.0 Test 09/06/17 13:20 09/06/17 14:15 09/06/17 15:07 09/06/17 16:28 Bedside Glucose 151 144 169 160 Test 09/06/17 17:25 09/06/17 18:10 09/06/17 19:40 09/06/17 20:37 Bedside Glucose 168 157 154 147 Test 09/06/17 21:25 09/06/17 22:52 09/06/17 23:42 09/07/17 01:03 Bedside Glucose 151 157 173 169 Test 09/07/17 02:10 09/07/17 03:09 09/07/17 03:58 09/07/17 04:25 Bedside Glucose 169 168 172 White Blood Count 12.0 H Red Blood Count 6.22 H Hemoglobin 16.9 Hematocrit 55.3 H Mean Corpuscular Volume 88.9 Mean Corpuscular Hemoglobin 27.2 L Mean Corpuscular Hemoglobin Concent 30.6 L Red Cell Distribution Width 17.6 H Platelet Count 267 Mean Platelet Volume 11.0 H Neutrophils % 87.1 H Lymphocytes % 6.6 L Monocytes % 4.8 Eosinophils % 0.7 Basophils % 0.1 Nucleated Red Blood Cells % 0.0 Neutrophils # 10.5 H Lymphocytes # 0.8 Monocytes # 0.6 Eosinophils # 0.1 Basophils # 0.0 Nucleated Red Blood Cells # 0.0 Sodium Level 142 Potassium Level 4.2 Chloride Level 108 Carbon Dioxide Level 26 Anion Gap 12 Blood Urea Nitrogen 29 H Creatinine 0.64 Glucose Level 211 Calcium Level 9.5 Test 09/07/17 05:17 09/07/17 06:04 09/07/17 06:59 09/07/17 07:57 Bedside Glucose 176 152 166 143 Medications Medications Current Medications Flumazenil (Romazicon) 0.2 mg Q1M PRN IV BENZODIAZEPINE OVERDOSE; Start at 07:30 Naloxone HCl (Narcan) 0.4 mg Q3M PRN IV DECREASED REPIRATORY RATE; Start at 07:30 Ondansetron HCl (Zofran Inj) 4 mg Q6H PRN IV NAUSEA AND/OR VOMITING; Start 08/24/17 at 07:30 Nitroglycerin (Nitroglycerin (Sl Tab) 0.4 Mg) 1 tab Q5M PRN SL CHEST PAIN; Start 08/24/17 at 07:30 Acetaminophen (Tylenol Liquid) 650 mg Q6H PRN PO PAIN LEVEL 1-3 OR FEVER Last administered on 09/06/17 00:25; Admin Dose 650 MG; Start 08/24/17 at 07:30 Acetaminophen (Tylenol Tab) 650 mg Q6H PRN PO PAIN LEVEL 1-3 OR FEVER Last administered on 09/04/17 21:00; Admin Dose 650 MG; Start 08/24/17 at 07:30 Acetaminophen (Tylenol Supp) 650 mg Q4H PRN [place] PAIN LEVEL 1-3 OR TEMP > 37C Last administered on 09/03/17 20:00; Admin Dose 650 MG; Start 08/24/17 at 07: 30 Ibuprofen (Motrin) 600 mg Q6H PRN PO PAIN LEVEL 1-3 OR FEVER; Start 08/24/17 at 07:30 Acetaminophen/ Hydrocodone Bitart ([place] (5/325)) 1 tab Q6H PRN PO PAIN LEVEL 4 -6; Start 08/24/17 at 07:30 Morphine Sulfate (morphine) 2 mg Q4H PRN IV PAIN LEVEL 7-10 Last administered on 09/03/17 22:18; Admin Dose 2 MG; Start 08/24/17 at 07:30 Lorazepam (Ativan) 1 mg Q2H PRN IV ANXIETY Last administered on 09/04/17 00: 02; Admin Dose 1 MG; Start 08/24/17 at 07:30 Docusate Sodium (Colace) 100 mg Q12H PRN PO CONSTIPATION; Start 08/24/17 at 07: 30 Magnesium Hydroxide (Milk Of Mag) 30 ml DAILY PRN PO CONSTIPATION; Start at 07:30 Bisacodyl (Dulcolax) 5 mg DAILY PRN PO CONSTIPATION; Start 08/24/17 at 07:30 Bisacodyl (Dulcolax Supp) 10 mg DAILY PRN [place] CONSTIPATION; Start 08/24/17 at 07 :30 Sodium Biphosphate/ Sodium Phosphate (Fleet Enema) 133 ml DAILY PRN [place] CONSTIPATION; Start 08/24/17 at 07:30 Enoxaparin Sodium (Lovenox) 40 mg DAILY SC Last administered on 09/07/17 08: 14; Admin Dose 40 MG; Start 08/24/17 at 09:00 Hydralazine HCl (Apresoline) 10 mg Q6H PRN IV ELEVATED BLOOD PRESSURE Last administered on 09/05/17 02:12; Admin Dose 10 MG; Start 08/24/17 at 15:30 Meperidine HCl (Demerol) 12.5 mg Q4H PRN IV POST OPERATIVE SHIVERING; Start at 18:30 Meperidine HCl (Demerol) 25 mg Q4H PRN IV POST OPERATIVE SHIVERING; Start 08/24 at 18:30 Eye Lubricant (Akwa Oint) 1 applic Q6 BOTH EYES Last administered on 05:27; Admin Dose 1 APPLIC; Start 08/24/17 at 18:30 Eye Lubricant 2 drop 2 drop Q6 BOTH EYES Last administered on 09/07/17 05:27 ; Admin Dose 2 DROP; Start 08/24/17 at 18:30 Norepinephrine 16 mg/Dextrose 500 ml @ 1.87 mls/hr TITRATE IV Last administered on 08/26/17 14:32; Admin Dose 22.5 MLS/HR; Start 08/26/17 at 13:30 Fentanyl (Sublimaze) 100 ml @ 2.5 mls/hr TITRATE IV Last administered on 09/02 22:53; Admin Dose 10 MLS/HR; Start 08/27/17 at 09:30 Miscellaneous Information 1 ea NOTE XX ; Start 08/28/17 at 11:30 IV Flush (NS 10 ml) 10 ml PRN PRN IV IV PROTOCOL; Start 08/28/17 at 14:00 Miscellaneous Information (Pending Santyl Order For Wound Care) This patient almanza... PRN PRN XX WOUND CARE; Start 08/28/17 at 23:00 Furosemide (Lasix) 40 mg DAILY IV Last administered on 09/07/17 08:13; Admin Dose 40 MG; Start 08/30/17 at 09:00 Levothyroxine Sodium (Synthroid Iv) 25 mcg DAILY@06 IV Last administered on 05:26; Admin Dose 25 MCG; Start 08/31/17 at 06:00 Aspirin (Aspirin) 81 mg DAILY [place] ; Start 08/31/17 at 09:00; Status Future Hold Diagnostic Test (Pha) (Accu-Chek) 1 ea 02 XX Last administered on 09/07/17 02 :11; Admin Dose 1 EA; Start 09/01/17 at 02:00 Methylprednisolone Sodium Succinate 40 mg 40 mg BID IV Last administered on 08:13; Admin Dose 40 MG; Start 09/03/17 at 21:00 Levetiracetam/ Dextrose (Keppra Iv/D5W) 107.5 ml @ 430 mls/hr Q12 IVPB Last administered on 09/07/17 08:18; Admin Dose 430 MLS/HR; Start 09/04/17 at 21: 00 Lorazepam (Ativan) 2 mg Q4 PRN IV SEIZURES; Start 09/04/17 at 19:30 Metoprolol Tartrate 25 mg 25 mg BID PO Last administered on 09/07/17 08:12; Admin Dose 25 MG; Start 09/05/17 at 21:00 Piperacillin Sod/ Tazobactam Sod (Zosyn 3.375gm/ 50 ml (Pmx)) 50 ml @ 100 mls/ hr Q8 IVPB Last administered on 09/07/17 05:27; Admin Dose 100 MLS/HR; Start 09/05/17 at 14:00 Fluconazole 100 mg 100 mg DAILY PO Last administered on 09/07/17 08:12; Admin Dose 100 MG; Start 09/05/17 at 12:30 Vancomycin HCl/ Dextrose (Vancocin/D5W) 250 ml @ 83.333 mls/ hr Q8H IVPB Last administered on 09/07/17 05:27; Admin Dose 83.333 MLS/HR; Start 09/05/17 at 21:00 Diagnostic Test (Pha) (Accu-Chek) 1 ea Q1H XX Last administered on 09/07/17 09:23; Admin Dose 1 EA; Start 09/05/17 at 15:00 Dextrose (D50w Syringe) 25 ml Q15M PRN IV Till BS 80 mg/dL or above x2; Start 09/05/17 at 15:00 Dextrose 50 ml 50 ml Q15M PRN IV Till BS 80 mg/dL or above x2; Start 09/05/17 at 15:00 Midazolam HCl (Versed) 50 ml @ 1 mls/hr TITRATE IV Last administered on 05:48; Admin Dose 4 MLS/HR; Start 09/05/17 at 16:00 Benazepril HCl (Lotensin) 10 mg BID PO Last administered on 09/07/17 08:12; Admin Dose 10 MG; Start 09/06/17 at 13:00 Famotidine 20 mg 20 mg BID PO Last administered on 09/07/17 08:12; Admin Dose 20 MG; Start 09/06/17 at 21:00 Valproate Sodium/ Sodium Chloride (Depacon/NS) 55 ml @ 55 mls/hr Q6 IVPB Last administered on 09/07/17 05:27; Admin Dose 55 MLS/HR; Start 09/07/17 at 00:00 SKYLAR ABDALLA 17, 2017 09:35
--- NOTE | 2017-09-07 09:45 | PN ---
Date/Time of Note Date/Time of Note DATE: 09/07/17 TIME: 09:41 Assessment/Plan VTE Prophylaxis VTE Prophylaxis Intervention: LMWH, other Lines/Catheters IV Catheter Type (from Nrs): PICC Line Central line still needed: Yes Urinary Cath still in place: Yes Reason Cath still needed: urinary retention Assessment/Plan Chief Complaint/Hosp Course 36 y/o # s/p Cardiopulmonary arrest--? aspiration, CT head negative, ECHO no wall motion abnormalities, CTPA negative for PE # Severe anoxic encephalopathy on vent s/p EEG X3 and followed by Neuro # Aspiration pneumonia. # Acute respiratory failure on vent 100%>80% with hypoxia and high PEEP # hx Seizure disorder. # Coagulase-negative Staphylococcus bacteremia on admission consistent with contaminant. # Diabetes. 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 Nosocomial, fungal? was on TPN # Abnormal electrocardiogram with diffuse ST depressions but in the setting of cardiac arrest. Plan - on Depakote and Keppra - on insulin gtt> Fs better - Mechanical ventilation per Pulmonary - c/w TF - Solumedrol per pulmonary - c.w Vancomycin/ zosyn and diflucan - f/u Joyce cx - c/w iv lasix - Continue asa, BB and GURJIT - c/w levothyroxine - c/w pepcid and lovenox - Pulmonary recommended + Tracheostomy , spoke to fiance at bedside and inclining towards it Problems: Subjective 24 Hr Interval Summary Free Text/Dictation EEG shows with bilateral blebs and in flat line, Depakote added Opens eyes, on FIO2 80% Exam/Review of Systems Vital Signs Vitals Vital Signs Date Time Temp Pulse Resp B/P Pulse Ox O2 Delivery O2 Flow Rate FiO2 09/07/17 08:00 98.6 80 26 124/80 93 Mechanical Ventilator 09/07/17 05:39 80 Intake and Output 09/06/17 09/06/17 09/07/17 15:00 23:00 07:00 Intake Total 855.5 ml 802.499 ml 653.001 ml Output Total 3000 ml 1235 ml 1130 ml Balance -2144.5 ml -432.501 ml -476.999 ml Exam Gen: Unresponsive to verbal commands, slight movement on heavy sternal rub, pupils 4-5 mm, eyes open HEENT: Blood shot eyes Neck:thick Lungs: decreased breath sounds b/l Abdomen: distended, soft Ext +edema Fagan Picc line Results Result Diagram: 09/07/17 0425 09/07/17 0425 Results 24 hrs Laboratory Tests Test 09/06/17 10:28 09/06/17 11:31 09/06/17 12:25 09/06/17 12:30 Bedside Glucose 159 167 142 Vancomycin Level Trough 13.0 Test 09/06/17 13:20 09/06/17 14:15 09/06/17 15:07 09/06/17 16:28 Bedside Glucose 151 144 169 160 Test 09/06/17 17:25 09/06/17 18:10 09/06/17 19:40 09/06/17 20:37 Bedside Glucose 168 157 154 147 Test 09/06/17 21:25 09/06/17 22:52 09/06/17 23:42 09/07/17 01:03 Bedside Glucose 151 157 173 169 Test 09/07/17 02:10 09/07/17 03:09 09/07/17 03:58 09/07/17 04:25 Bedside Glucose 169 168 172 White Blood Count 12.0 H Red Blood Count 6.22 H Hemoglobin 16.9 Hematocrit 55.3 H Mean Corpuscular Volume 88.9 Mean Corpuscular Hemoglobin 27.2 L Mean Corpuscular Hemoglobin Concent 30.6 L Red Cell Distribution Width 17.6 H Platelet Count 267 Mean Platelet Volume 11.0 H Neutrophils % 87.1 H Lymphocytes % 6.6 L Monocytes % 4.8 Eosinophils % 0.7 Basophils % 0.1 Nucleated Red Blood Cells % 0.0 Neutrophils # 10.5 H Lymphocytes # 0.8 Monocytes # 0.6 Eosinophils # 0.1 Basophils # 0.0 Nucleated Red Blood Cells # 0.0 Sodium Level 142 Potassium Level 4.2 Chloride Level 108 Carbon Dioxide Level 26 Anion Gap 12 Blood Urea Nitrogen 29 H Creatinine 0.64 Glucose Level 211 Calcium Level 9.5 Test 09/07/17 05:17 09/07/17 06:04 09/07/17 06:59 09/07/17 07:57 Bedside Glucose 176 152 166 143 Medications Medications Current Medications Flumazenil (Romazicon) 0.2 mg Q1M PRN IV BENZODIAZEPINE OVERDOSE; Start at 07:30 Naloxone HCl (Narcan) 0.4 mg Q3M PRN IV DECREASED REPIRATORY RATE; Start at 07:30 Ondansetron HCl (Zofran Inj) 4 mg Q6H PRN IV NAUSEA AND/OR VOMITING; Start 08/24/17 at 07:30 Nitroglycerin (Nitroglycerin (Sl Tab) 0.4 Mg) 1 tab Q5M PRN SL CHEST PAIN; Start 08/24/17 at 07:30 Acetaminophen (Tylenol Liquid) 650 mg Q6H PRN PO PAIN LEVEL 1-3 OR FEVER Last administered on 09/06/17 00:25; Admin Dose 650 MG; Start 08/24/17 at 07:30 Acetaminophen (Tylenol Tab) 650 mg Q6H PRN PO PAIN LEVEL 1-3 OR FEVER Last administered on 09/04/17 21:00; Admin Dose 650 MG; Start 08/24/17 at 07:30 Acetaminophen (Tylenol Supp) 650 mg Q4H PRN [place] PAIN LEVEL 1-3 OR TEMP > 37C Last administered on 09/03/17 20:00; Admin Dose 650 MG; Start 08/24/17 at 07: 30 Ibuprofen (Motrin) 600 mg Q6H PRN PO PAIN LEVEL 1-3 OR FEVER; Start 08/24/17 at 07:30 Acetaminophen/ Hydrocodone Bitart ([place] (5/325)) 1 tab Q6H PRN PO PAIN LEVEL 4 -6; Start 08/24/17 at 07:30 Morphine Sulfate (morphine) 2 mg Q4H PRN IV PAIN LEVEL 7-10 Last administered on 09/03/17 22:18; Admin Dose 2 MG; Start 08/24/17 at 07:30 Lorazepam (Ativan) 1 mg Q2H PRN IV ANXIETY Last administered on 09/04/17 00: 02; Admin Dose 1 MG; Start 08/24/17 at 07:30 Docusate Sodium (Colace) 100 mg Q12H PRN PO CONSTIPATION; Start 08/24/17 at 07: 30 Magnesium Hydroxide (Milk Of Mag) 30 ml DAILY PRN PO CONSTIPATION; Start at 07:30 Bisacodyl (Dulcolax) 5 mg DAILY PRN PO CONSTIPATION; Start 08/24/17 at 07:30 Bisacodyl (Dulcolax Supp) 10 mg DAILY PRN [place] CONSTIPATION; Start 08/24/17 at 07 :30 Sodium Biphosphate/ Sodium Phosphate (Fleet Enema) 133 ml DAILY PRN [place] CONSTIPATION; Start 08/24/17 at 07:30 Enoxaparin Sodium (Lovenox) 40 mg DAILY SC Last administered on 09/07/17 08: 14; Admin Dose 40 MG; Start 08/24/17 at 09:00 Hydralazine HCl (Apresoline) 10 mg Q6H PRN IV ELEVATED BLOOD PRESSURE Last administered on 09/05/17 02:12; Admin Dose 10 MG; Start 08/24/17 at 15:30 Meperidine HCl (Demerol) 12.5 mg Q4H PRN IV POST OPERATIVE SHIVERING; Start at 18:30 Meperidine HCl (Demerol) 25 mg Q4H PRN IV POST OPERATIVE SHIVERING; Start 08/24 at 18:30 Eye Lubricant (Akwa Oint) 1 applic Q6 BOTH EYES Last administered on 05:27; Admin Dose 1 APPLIC; Start 08/24/17 at 18:30 Eye Lubricant 2 drop 2 drop Q6 BOTH EYES Last administered on 09/07/17 05:27 ; Admin Dose 2 DROP; Start 08/24/17 at 18:30 Norepinephrine 16 mg/Dextrose 500 ml @ 1.87 mls/hr TITRATE IV Last administered on 08/26/17 14:32; Admin Dose 22.5 MLS/HR; Start 08/26/17 at 13:30 Fentanyl (Sublimaze) 100 ml @ 2.5 mls/hr TITRATE IV Last administered on 09/02 22:53; Admin Dose 10 MLS/HR; Start 08/27/17 at 09:30 Miscellaneous Information 1 ea NOTE XX ; Start 08/28/17 at 11:30 IV Flush (NS 10 ml) 10 ml PRN PRN IV IV PROTOCOL; Start 08/28/17 at 14:00 Miscellaneous Information (Pending [facility] Order For Wound Care) This patient almanza... PRN PRN XX WOUND CARE; Start 08/28/17 at 23:00 Furosemide (Lasix) 40 mg DAILY IV Last administered on 09/07/17 08:13; Admin Dose 40 MG; Start 08/30/17 at 09:00 Levothyroxine Sodium (Synthroid Iv) 25 mcg DAILY@06 IV Last administered on 05:26; Admin Dose 25 MCG; Start 08/31/17 at 06:00 Aspirin (Aspirin) 81 mg DAILY [place] ; Start 08/31/17 at 09:00; Status Future Hold Diagnostic Test (Pha) (Accu-Chek) 1 ea 02 XX Last administered on 09/07/17 02 :11; Admin Dose 1 EA; Start 09/01/17 at 02:00 Methylprednisolone Sodium Succinate 40 mg 40 mg BID IV Last administered on 08:13; Admin Dose 40 MG; Start 09/03/17 at 21:00 Levetiracetam/ Dextrose (Keppra Iv/D5W) 107.5 ml @ 430 mls/hr Q12 IVPB Last administered on 09/07/17 08:18; Admin Dose 430 MLS/HR; Start 09/04/17 at 21: 00 Lorazepam (Ativan) 2 mg Q4 PRN IV SEIZURES; Start 09/04/17 at 19:30 Metoprolol Tartrate 25 mg 25 mg BID PO Last administered on 09/07/17 08:12; Admin Dose 25 MG; Start 09/05/17 at 21:00 Piperacillin Sod/ Tazobactam Sod (Zosyn 3.375gm/ 50 ml (Pmx)) 50 ml @ 100 mls/ hr Q8 IVPB Last administered on 09/07/17 05:27; Admin Dose 100 MLS/HR; Start 09/05/17 at 14:00 Fluconazole 100 mg 100 mg DAILY PO Last administered on 09/07/17 08:12; Admin Dose 100 MG; Start 09/05/17 at 12:30 Vancomycin HCl/ Dextrose (Vancocin/D5W) 250 ml @ 83.333 mls/ hr Q8H IVPB Last administered on 09/07/17 05:27; Admin Dose 83.333 MLS/HR; Start 09/05/17 at 21:00 Diagnostic Test (Pha) (Accu-Chek) 1 ea Q1H XX Last administered on 09/07/17 09:23; Admin Dose 1 EA; Start 09/05/17 at 15:00 Dextrose (D50w Syringe) 25 ml Q15M PRN IV Till BS 80 mg/dL or above x2; Start 09/05/17 at 15:00 Dextrose 50 ml 50 ml Q15M PRN IV Till BS 80 mg/dL or above x2; Start 09/05/17 at 15:00 Midazolam HCl (Versed) 50 ml @ 1 mls/hr TITRATE IV Last administered on 05:48; Admin Dose 4 MLS/HR; Start 09/05/17 at 16:00 Benazepril HCl (Lotensin) 10 mg BID PO Last administered on 09/07/17 08:12; Admin Dose 10 MG; Start 09/06/17 at 13:00 Famotidine 20 mg 20 mg BID PO Last administered on 09/07/17 08:12; Admin Dose 20 MG; Start 09/06/17 at 21:00 Valproate Sodium/ Sodium Chloride (Depacon/NS) 55 ml @ 55 mls/hr Q6 IVPB Last administered on 09/07/17 05:27; Admin Dose 55 MLS/HR; Start 09/07/17 at 00:00 ELMER RAE MD Sep 07, 2017 09:45
--- NOTE | 2017-09-07 10:37 | CONS ---
Date/Time of Note Date/Time of Note DATE: 09/07/17 TIME: 10:36 Consult Date/Type/Reason Admit Date/Time Aug 24, 2017 at 07:05 Initial Consult Date 08/27/17 Type of Consultation: Pulmonary Ordering Provider: MIKE LUONG MD Subjective No significant neurological changes. Eyes open but not following commands. Continues low-dose Versed. Objective Vital Signs Date Time Temp Pulse Resp B/P Pulse Ox O2 Delivery O2 Flow Rate FiO2 09/07/17 08:00 98.6 80 26 124/80 93 Mechanical Ventilator 09/07/17 05:39 80 Intake and Output 09/06/17 09/06/17 09/07/17 15:00 23:00 07:00 Intake Total 855.5 ml 802.499 ml 653.001 ml Output Total 3000 ml 1235 ml 1130 ml Balance -2144.5 ml -432.501 ml -476.999 ml Exam PHYSICAL EXAMINATION: GENERAL: Well-nourished well-developed gentleman comfortable at rest on mechanical ventilation. VITAL SIGNS: NECK: Supple, no JVD or lymphadenopathy. CARDIAC: S1, S2, no added sounds or murmurs. CHEST: Diminished air entry bilaterally. ABDOMEN: Soft, nontender. No guarding or rebound. EXTREMITIES: No cyanosis, clubbing, 1+ edema. NEUROLOGIC: Vegetative state. Results/Medications Result Diagram: 09/07/17 0425 09/07/17 0425 Results 24 hrs Laboratory Tests Test 09/06/17 11:31 09/06/17 12:25 09/06/17 12:30 09/06/17 13:20 Bedside Glucose 167 142 151 Vancomycin Level Trough 13.0 Test 09/06/17 14:15 09/06/17 15:07 09/06/17 16:28 09/06/17 17:25 Bedside Glucose 144 169 160 168 Test 09/06/17 18:10 09/06/17 19:40 09/06/17 20:37 09/06/17 21:25 Bedside Glucose 157 154 147 151 Test 09/06/17 22:52 09/06/17 23:42 09/07/17 01:03 09/07/17 02:10 Bedside Glucose 157 173 169 169 Test 09/07/17 03:09 09/07/17 03:58 09/07/17 04:25 09/07/17 05:17 Bedside Glucose 168 172 176 White Blood Count 12.0 H Red Blood Count 6.22 H Hemoglobin 16.9 Hematocrit 55.3 H Mean Corpuscular Volume 88.9 Mean Corpuscular Hemoglobin 27.2 L Mean Corpuscular Hemoglobin Concent 30.6 L Red Cell Distribution Width 17.6 H Platelet Count 267 Mean Platelet Volume 11.0 H Neutrophils % 87.1 H Lymphocytes % 6.6 L Monocytes % 4.8 Eosinophils % 0.7 Basophils % 0.1 Nucleated Red Blood Cells % 0.0 Neutrophils # 10.5 H Lymphocytes # 0.8 Monocytes # 0.6 Eosinophils # 0.1 Basophils # 0.0 Nucleated Red Blood Cells # 0.0 Sodium Level 142 Potassium Level 4.2 Chloride Level 108 Carbon Dioxide Level 26 Anion Gap 12 Blood Urea Nitrogen 29 H Creatinine 0.64 Glucose Level 211 Calcium Level 9.5 Test 09/07/17 06:04 09/07/17 06:59 09/07/17 07:57 09/07/17 09:23 Bedside Glucose 152 166 143 150 Test 09/07/17 09:59 Bedside Glucose 160 Medications Current Medications Flumazenil (Romazicon) 0.2 mg Q1M PRN IV BENZODIAZEPINE OVERDOSE; Start at 07:30 Naloxone HCl (Narcan) 0.4 mg Q3M PRN IV DECREASED REPIRATORY RATE; Start at 07:30 Ondansetron HCl (Zofran Inj) 4 mg Q6H PRN IV NAUSEA AND/OR VOMITING; Start 08/24/17 at 07:30 Nitroglycerin (Nitroglycerin (Sl Tab) 0.4 Mg) 1 tab Q5M PRN SL CHEST PAIN; Start 08/24/17 at 07:30 Acetaminophen (Tylenol Liquid) 650 mg Q6H PRN PO PAIN LEVEL 1-3 OR FEVER Last administered on 09/06/17 00:25; Admin Dose 650 MG; Start 08/24/17 at 07:30 Acetaminophen (Tylenol Tab) 650 mg Q6H PRN PO PAIN LEVEL 1-3 OR FEVER Last administered on 09/04/17 21:00; Admin Dose 650 MG; Start 08/24/17 at 07:30 Acetaminophen (Tylenol Supp) 650 mg Q4H PRN [place] PAIN LEVEL 1-3 OR TEMP > 37C Last administered on 09/03/17 20:00; Admin Dose 650 MG; Start 08/24/17 at 07: 30 Ibuprofen (Motrin) 600 mg Q6H PRN PO PAIN LEVEL 1-3 OR FEVER; Start 08/24/17 at 07:30 Acetaminophen/ Hydrocodone Bitart ([place] (5/325)) 1 tab Q6H PRN PO PAIN LEVEL 4 -6; Start 08/24/17 at 07:30 Morphine Sulfate (morphine) 2 mg Q4H PRN IV PAIN LEVEL 7-10 Last administered on 09/03/17 22:18; Admin Dose 2 MG; Start 08/24/17 at 07:30 Lorazepam (Ativan) 1 mg Q2H PRN IV ANXIETY Last administered on 09/04/17 00: 02; Admin Dose 1 MG; Start 08/24/17 at 07:30 Docusate Sodium (Colace) 100 mg Q12H PRN PO CONSTIPATION; Start 08/24/17 at 07: 30 Magnesium Hydroxide (Milk Of Mag) 30 ml DAILY PRN PO CONSTIPATION; Start at 07:30 Bisacodyl (Dulcolax) 5 mg DAILY PRN PO CONSTIPATION; Start 08/24/17 at 07:30 Bisacodyl (Dulcolax Supp) 10 mg DAILY PRN [place] CONSTIPATION; Start 08/24/17 at 07 :30 Sodium Biphosphate/ Sodium Phosphate (Fleet Enema) 133 ml DAILY PRN [place] CONSTIPATION; Start 08/24/17 at 07:30 Enoxaparin Sodium (Lovenox) 40 mg DAILY SC Last administered on 09/07/17 08: 14; Admin Dose 40 MG; Start 08/24/17 at 09:00 Hydralazine HCl (Apresoline) 10 mg Q6H PRN IV ELEVATED BLOOD PRESSURE Last administered on 09/05/17 02:12; Admin Dose 10 MG; Start 08/24/17 at 15:30 Meperidine HCl (Demerol) 12.5 mg Q4H PRN IV POST OPERATIVE SHIVERING; Start at 18:30 Meperidine HCl (Demerol) 25 mg Q4H PRN IV POST OPERATIVE SHIVERING; Start 08/24 at 18:30 Eye Lubricant (Akwa Oint) 1 applic Q6 BOTH EYES Last administered on 05:27; Admin Dose 1 APPLIC; Start 08/24/17 at 18:30 Eye Lubricant 2 drop 2 drop Q6 BOTH EYES Last administered on 09/07/17 05:27 ; Admin Dose 2 DROP; Start 08/24/17 at 18:30 Norepinephrine 16 mg/Dextrose 500 ml @ 1.87 mls/hr TITRATE IV Last administered on 08/26/17 14:32; Admin Dose 22.5 MLS/HR; Start 08/26/17 at 13:30 Fentanyl (Sublimaze) 100 ml @ 2.5 mls/hr TITRATE IV Last administered on 09/02 22:53; Admin Dose 10 MLS/HR; Start 08/27/17 at 09:30 Miscellaneous Information 1 ea NOTE XX ; Start 08/28/17 at 11:30 IV Flush (NS 10 ml) 10 ml PRN PRN IV IV PROTOCOL; Start 08/28/17 at 14:00 Miscellaneous Information (Pending [facility] Order For Wound Care) This patient almanza... PRN PRN XX WOUND CARE; Start 08/28/17 at 23:00 Furosemide (Lasix) 40 mg DAILY IV Last administered on 09/07/17 08:13; Admin Dose 40 MG; Start 08/30/17 at 09:00 Levothyroxine Sodium (Synthroid Iv) 25 mcg DAILY@06 IV Last administered on 05:26; Admin Dose 25 MCG; Start 08/31/17 at 06:00 Aspirin (Aspirin) 81 mg DAILY [place] ; Start 08/31/17 at 09:00; Status Future Hold Diagnostic Test (Pha) (Accu-Chek) 1 ea 02 XX Last administered on 09/07/17 02 :11; Admin Dose 1 EA; Start 09/01/17 at 02:00 Methylprednisolone Sodium Succinate 40 mg 40 mg BID IV Last administered on 08:13; Admin Dose 40 MG; Start 09/03/17 at 21:00 Levetiracetam/ Dextrose (Keppra Iv/D5W) 107.5 ml @ 430 mls/hr Q12 IVPB Last administered on 09/07/17 08:18; Admin Dose 430 MLS/HR; Start 09/04/17 at 21: 00 Lorazepam (Ativan) 2 mg Q4 PRN IV SEIZURES; Start 09/04/17 at 19:30 Metoprolol Tartrate 25 mg 25 mg BID PO Last administered on 09/07/17 08:12; Admin Dose 25 MG; Start 09/05/17 at 21:00 Piperacillin Sod/ Tazobactam Sod (Zosyn 3.375gm/ 50 ml (Pmx)) 50 ml @ 100 mls/ hr Q8 IVPB Last administered on 09/07/17 05:27; Admin Dose 100 MLS/HR; Start 09/05/17 at 14:00 Fluconazole 100 mg 100 mg DAILY PO Last administered on 09/07/17 08:12; Admin Dose 100 MG; Start 09/05/17 at 12:30 Vancomycin HCl/ Dextrose (Vancocin/D5W) 250 ml @ 83.333 mls/ hr Q8H IVPB Last administered on 09/07/17 05:27; Admin Dose 83.333 MLS/HR; Start 09/05/17 at 21:00 Diagnostic Test (Pha) (Accu-Chek) 1 ea Q1H XX Last administered on 09/07/17 09:23; Admin Dose 1 EA; Start 09/05/17 at 15:00 Dextrose (D50w Syringe) 25 ml Q15M PRN IV Till BS 80 mg/dL or above x2; Start 09/05/17 at 15:00 Dextrose 50 ml 50 ml Q15M PRN IV Till BS 80 mg/dL or above x2; Start 09/05/17 at 15:00 Midazolam HCl (Versed) 50 ml @ 1 mls/hr TITRATE IV Last administered on 05:48; Admin Dose 4 MLS/HR; Start 09/05/17 at 16:00 Benazepril HCl (Lotensin) 10 mg BID PO Last administered on 09/07/17 08:12; Admin Dose 10 MG; Start 09/06/17 at 13:00 Famotidine 20 mg 20 mg BID PO Last administered on 09/07/17 08:12; Admin Dose 20 MG; Start 09/06/17 at 21:00 Valproate Sodium/ Sodium Chloride (Depacon/NS) 55 ml @ 55 mls/hr Q6 IVPB Last administered on 09/07/17 05:27; Admin Dose 55 MLS/HR; Start 09/07/17 at 00:00 Assessment/Plan Chief Complaint/Hosp Course IMP: 1. s/p Cardiopulmonary arrest--likely due to aspiration and central airway obstruction 2. Seizure Disorder, agree with repeat EEG to exclude subclinical seizures. 3. Gram + bacteremia--likely contaminant 4. Probable significant anoxic brain injury 5. Hypoxemic respiratory failure. Persistent hypoxemia despite aggressive volume removal. Continues 100% FiO2 PEEP of 10 6. Morbid obesity 7. DM RECS: 1. Continue mechanical ventilation for weaning, decrease FiO2 and PEEP as tolerated. Currently on volume control ventilation. Recommend proceeding to tracheostomy as patient not weanable from ventilator. 2. Anti-epileptic Rx neuro recommendations 3. Trial of nasogastric tube feeding 4. Abx 5. F/U Cx's 6. DVT and GI prophylaxis Extensive discussion with patient's fiance at bedside. She wishes to proceed with tracheostomy and PEG tube placement. Problems: JULIANA WASHINGTON MD, [facility] Sep 07, 2017 10:37
--- NOTE | 2017-09-07 12:01 | CONS ---
Date/Time of Note Date/Time of Note DATE: 09/07/17 TIME: 11:55 Consultation Date/Type/Reason Admit Date/Time Aug 24, 2017 at 07:05 Initial Consult Date 08/27/17 Type of Consultation: Palliative care Reason for Consultation Family meeting today with patient's godmother and significant other first while she has made a decision to change CODE STATUS to DNR and she does not want a PEG and trach and she is opted for compassionate extubation. She is the spokesperson on his behalf. Background social history was reviewed and discussed in detail. The fact that he would never want to live by artificial means especially not in a vegetative state.. She has a clear understanding of his underlying medical illness and does not want him to suffer at the end of life or living in an dignified manner until his . We addressed her fears concerns strength her spirituality her communication preferences or direct contact with the primary caregivers. And she feels a social work has done an excellent job in supporting her. As of care at this point is compassionate extubation I would discuss this with patient's primary caregivers and I have contacted Dr. Bermudez director of ICU. Patient's significant other to tell us when she is ready for us to withdraw care. Referring Provider: MIKE LUONG MD Exam/Review of Systems Vital Signs Vitals Vital Signs Date Time Temp Pulse Resp B/P Pulse Ox O2 Delivery O2 Flow Rate FiO2 09/07/17 08:55 83 26 94 80 09/07/17 08:00 98.6 124/80 Mechanical Ventilator Intake and Output 09/06/17 09/06/17 09/07/17 15:00 23:00 07:00 Intake Total 855.5 ml 802.499 ml 653.001 ml Output Total 3000 ml 1235 ml 1130 ml Balance -2144.5 ml -432.501 ml -476.999 ml Results Result Diagram: 09/07/17 0425 09/07/17 0425 Results 24 hrs Laboratory Tests Test 09/06/17 12:25 09/06/17 12:30 09/06/17 13:20 09/06/17 14:15 Bedside Glucose 142 151 144 Vancomycin Level Trough 13.0 Test 09/06/17 15:07 09/06/17 16:28 09/06/17 17:25 09/06/17 18:10 Bedside Glucose 169 160 168 157 Test 09/06/17 19:40 09/06/17 20:37 09/06/17 21:25 09/06/17 22:52 Bedside Glucose 154 147 151 157 Test 09/06/17 23:42 09/07/17 01:03 09/07/17 02:10 09/07/17 03:09 Bedside Glucose 173 169 169 168 Test 09/07/17 03:58 09/07/17 04:25 09/07/17 05:17 09/07/17 06:04 Bedside Glucose 172 176 152 White Blood Count 12.0 H Red Blood Count 6.22 H Hemoglobin 16.9 Hematocrit 55.3 H Mean Corpuscular Volume 88.9 Mean Corpuscular Hemoglobin 27.2 L Mean Corpuscular Hemoglobin Concent 30.6 L Red Cell Distribution Width 17.6 H Platelet Count 267 Mean Platelet Volume 11.0 H Neutrophils % 87.1 H Lymphocytes % 6.6 L Monocytes % 4.8 Eosinophils % 0.7 Basophils % 0.1 Nucleated Red Blood Cells % 0.0 Neutrophils # 10.5 H Lymphocytes # 0.8 Monocytes # 0.6 Eosinophils # 0.1 Basophils # 0.0 Nucleated Red Blood Cells # 0.0 Sodium Level 142 Potassium Level 4.2 Chloride Level 108 Carbon Dioxide Level 26 Anion Gap 12 Blood Urea Nitrogen 29 H Creatinine 0.64 Glucose Level 211 Calcium Level 9.5 Test 09/07/17 06:59 09/07/17 07:57 09/07/17 09:23 09/07/17 09:59 Bedside Glucose 166 143 150 160 Test 09/07/17 11:00 Bedside Glucose 192 Medications Medications Current Medications Flumazenil (Romazicon) 0.2 mg Q1M PRN IV BENZODIAZEPINE OVERDOSE; Start at 07:30 Naloxone HCl (Narcan) 0.4 mg Q3M PRN IV DECREASED REPIRATORY RATE; Start at 07:30 Ondansetron HCl (Zofran Inj) 4 mg Q6H PRN IV NAUSEA AND/OR VOMITING; Start 08/24/17 at 07:30 Nitroglycerin (Nitroglycerin (Sl Tab) 0.4 Mg) 1 tab Q5M PRN SL CHEST PAIN; Start 08/24/17 at 07:30 Acetaminophen (Tylenol Liquid) 650 mg Q6H PRN PO PAIN LEVEL 1-3 OR FEVER Last administered on 09/06/17 00:25; Admin Dose 650 MG; Start 08/24/17 at 07:30 Acetaminophen (Tylenol Tab) 650 mg Q6H PRN PO PAIN LEVEL 1-3 OR FEVER Last administered on 09/04/17 21:00; Admin Dose 650 MG; Start 08/24/17 at 07:30 Acetaminophen (Tylenol Supp) 650 mg Q4H PRN [place] PAIN LEVEL 1-3 OR TEMP > 37C Last administered on 09/03/17 20:00; Admin Dose 650 MG; Start 08/24/17 at 07: 30 Ibuprofen (Motrin) 600 mg Q6H PRN PO PAIN LEVEL 1-3 OR FEVER; Start 08/24/17 at 07:30 Acetaminophen/ Hydrocodone Bitart ([place] (5/325)) 1 tab Q6H PRN PO PAIN LEVEL 4 -6; Start 08/24/17 at 07:30 Morphine Sulfate (morphine) 2 mg Q4H PRN IV PAIN LEVEL 7-10 Last administered on 09/03/17 22:18; Admin Dose 2 MG; Start 08/24/17 at 07:30 Lorazepam (Ativan) 1 mg Q2H PRN IV ANXIETY Last administered on 09/04/17 00: 02; Admin Dose 1 MG; Start 08/24/17 at 07:30 Docusate Sodium (Colace) 100 mg Q12H PRN PO CONSTIPATION; Start 08/24/17 at 07: 30 Magnesium Hydroxide (Milk Of Mag) 30 ml DAILY PRN PO CONSTIPATION Last administered on 09/07/17 11:18; Admin Dose 30 ML; Start 08/24/17 at 07:30 Bisacodyl (Dulcolax) 5 mg DAILY PRN PO CONSTIPATION; Start 08/24/17 at 07:30 Bisacodyl (Dulcolax Supp) 10 mg DAILY PRN [place] CONSTIPATION; Start 08/24/17 at 07 :30 Sodium Biphosphate/ Sodium Phosphate (Fleet Enema) 133 ml DAILY PRN [place] CONSTIPATION; Start 08/24/17 at 07:30 Enoxaparin Sodium (Lovenox) 40 mg DAILY SC Last administered on 09/07/17 08: 14; Admin Dose 40 MG; Start 08/24/17 at 09:00 Hydralazine HCl (Apresoline) 10 mg Q6H PRN IV ELEVATED BLOOD PRESSURE Last administered on 09/05/17 02:12; Admin Dose 10 MG; Start 08/24/17 at 15:30 Meperidine HCl (Demerol) 12.5 mg Q4H PRN IV POST OPERATIVE SHIVERING; Start at 18:30 Meperidine HCl (Demerol) 25 mg Q4H PRN IV POST OPERATIVE SHIVERING; Start 08/24 at 18:30 Eye Lubricant (Akwa Oint) 1 applic Q6 BOTH EYES Last administered on 05:27; Admin Dose 1 APPLIC; Start 08/24/17 at 18:30 Eye Lubricant 2 drop 2 drop Q6 BOTH EYES Last administered on 09/07/17 05:27 ; Admin Dose 2 DROP; Start 08/24/17 at 18:30 Norepinephrine 16 mg/Dextrose 500 ml @ 1.87 mls/hr TITRATE IV Last administered on 08/26/17 14:32; Admin Dose 22.5 MLS/HR; Start 08/26/17 at 13:30 Fentanyl (Sublimaze) 100 ml @ 2.5 mls/hr TITRATE IV Last administered on 09/02 22:53; Admin Dose 10 MLS/HR; Start 08/27/17 at 09:30 Miscellaneous Information 1 ea NOTE XX ; Start 08/28/17 at 11:30 IV Flush (NS 10 ml) 10 ml PRN PRN IV IV PROTOCOL; Start 08/28/17 at 14:00 Miscellaneous Information (Pending [facility] Order For Wound Care) This patient almanza... PRN PRN XX WOUND CARE; Start 08/28/17 at 23:00 Furosemide (Lasix) 40 mg DAILY IV Last administered on 09/07/17 08:13; Admin Dose 40 MG; Start 08/30/17 at 09:00 Levothyroxine Sodium (Synthroid Iv) 25 mcg DAILY@06 IV Last administered on 05:26; Admin Dose 25 MCG; Start 08/31/17 at 06:00 Aspirin (Aspirin) 81 mg DAILY [place] ; Start 08/31/17 at 09:00; Status Future Hold Diagnostic Test (Pha) (Accu-Chek) 1 ea 02 XX Last administered on 09/07/17 02 :11; Admin Dose 1 EA; Start 09/01/17 at 02:00 Methylprednisolone Sodium Succinate 40 mg 40 mg BID IV Last administered on 08:13; Admin Dose 40 MG; Start 09/03/17 at 21:00 Levetiracetam/ Dextrose (Keppra Iv/D5W) 107.5 ml @ 430 mls/hr Q12 IVPB Last administered on 09/07/17 08:18; Admin Dose 430 MLS/HR; Start 09/04/17 at 21: 00 Lorazepam (Ativan) 2 mg Q4 PRN IV SEIZURES; Start 09/04/17 at 19:30 Metoprolol Tartrate 25 mg 25 mg BID PO Last administered on 09/07/17 08:12; Admin Dose 25 MG; Start 09/05/17 at 21:00 Piperacillin Sod/ Tazobactam Sod (Zosyn 3.375gm/ 50 ml (Pmx)) 50 ml @ 100 mls/ hr Q8 IVPB Last administered on 09/07/17 05:27; Admin Dose 100 MLS/HR; Start 09/05/17 at 14:00 Fluconazole 100 mg 100 mg DAILY PO Last administered on 09/07/17 08:12; Admin Dose 100 MG; Start 09/05/17 at 12:30 Vancomycin HCl/ Dextrose (Vancocin/D5W) 250 ml @ 83.333 mls/ hr Q8H IVPB Last administered on 09/07/17 05:27; Admin Dose 83.333 MLS/HR; Start 09/05/17 at 21:00 Diagnostic Test (Pha) (Accu-Chek) 1 ea Q1H XX Last administered on 09/07/17 11:01; Admin Dose 1 EA; Start 09/05/17 at 15:00 Dextrose (D50w Syringe) 25 ml Q15M PRN IV Till BS 80 mg/dL or above x2; Start 09/05/17 at 15:00 Dextrose 50 ml 50 ml Q15M PRN IV Till BS 80 mg/dL or above x2; Start 09/05/17 at 15:00 Midazolam HCl (Versed) 50 ml @ 1 mls/hr TITRATE IV Last administered on 05:48; Admin Dose 4 MLS/HR; Start 09/05/17 at 16:00 Benazepril HCl (Lotensin) 10 mg BID PO Last administered on 09/07/17 08:12; Admin Dose 10 MG; Start 09/06/17 at 13:00 Famotidine 20 mg 20 mg BID PO Last administered on 09/07/17 08:12; Admin Dose 20 MG; Start 09/06/17 at 21:00 Valproate Sodium/ Sodium Chloride (Depacon/NS) 55 ml @ 55 mls/hr Q6 IVPB Last administered on 09/07/17 05:27; Admin Dose 55 MLS/HR; Start 09/07/17 at 00:00 NETTA ROMERO Sep 07, 2017 12:01
--- NOTE | 2017-09-07 14:02 | PN ---
DATE: 09/07/2017 SUBJECTIVE: No acute events. The patient is unresponsive, lying comfortably in bed, still with low -grade fevers. Family conference in place. PHYSICAL EXAMINATION: GENERAL: Morbidly obese, well-developed, middle-aged, man who is in no distress. The mag ent is unresponsive and obtunded. HEENT: Head atraumatic, normocephalic. Sclerae anicteric. Buccal mucosa dry. NECK: Supple. CHEST: Rise symmetrical. Breath sounds diminished to bases. HEART: S1, S2. ABDOMEN: Soft. Bowel sounds present. EXTREMITIES: Without cyanosis. ASSESSMENT: 1. Status post sepsis. 2. Acute encephalopathy status post cardiopulmonary arrest. 3. Acute respiratory failure. 4. Pneumonia. 5. Diabetes. PLAN: The patient remains unchanged. Plan to change him to comfort measures focus. Dictated By: BEKA WATKINS ALTERATION HAND for JORDAN CHILDS MD NI/NTS Conf#: [id number] DID#: [id number] CC: MIKE LUONG MD;*EndCC*
[2017-09-08] VITALS (33 sets, daily range): BP systolic 97–141; BP diastolic 57–110; PULSE 88–110; RESP 23–35
[2017-09-08] MEDS: VALPROATE INJ 500 MG in SOD CHLORIDE 0.9% 50 ML IVPB SCH ×5 (00:30→23:45)
[2017-09-08] MEDS: LEVETIRACETAM IV 750 MG in DEXTROSE 5% 100 ML IVPB SCH ×2 (09:53→21:53)
--- NOTE | 2017-09-08 11:00 | CONS ---
Date/Time of Note Date/Time of Note DATE: 09/08/17 TIME: 10:57 Assessment/Plan Assessment/Plan Additional Assessment/Plan Ventilator setting; AC of 26, tidal volume 550, PEEP of 10, 70% FiO2. Patient currently on Versed drip at 4 mg/h. Assessment and recommendations; 1. Patient admitted with cardiac arrest with ensuing severe anoxic enteropathy. 2. Aspiration pneumonia. 3. Seizures which are currently controlled. Continue current supportive care. Prognosis is extremely poor. Patient's family likely will opt for terminal extubation. Consultation Date/Type/Reason Admit Date/Time Aug 24, 2017 at 07:05 Initial Consult Date 08/27/17 Type of Consultation: Pulmonary/critical care Referring Provider: MIKE LUONG MD 24 HR Interval Summary Free Text/Dictation Patient's condition remains critical. Requiring Versed drip for seizure control. General exam; young male, orally intubated. Sedated. Currently in no distress. Exam/Review of Systems Vital Signs Vitals Vital Signs Date Time Temp Pulse Resp B/P Pulse Ox O2 Delivery O2 Flow Rate FiO2 09/08/17 10:00 92 26 109/71 95 Mechanical Ventilator 09/08/17 08:00 99.2 09/08/17 08:00 70 Intake and Output 09/07/17 09/07/17 09/08/17 15:00 23:00 07:00 Intake Total 841 ml 497 ml 407 ml Output Total 1772 ml 560 ml 290 ml Balance -931 ml -63 ml 117 ml Exam HEENT exam; supple neck, no JVD. No lymphadenopathy. Midline trachea. No thyromegaly. Pupils are widely dilated and nonreactive to light. There are bilateral subconjunctival hemorrhages. Orally intubated. Chest exam; diminished but clear breath sounds. S1-S2 audible, no murmurs. Regular rhythm. Abdomen exam; soft, no organomegaly. Bowel sounds audible. Extremity exam; no peripheral edema. SUBGRADE TESTER exam; patient is sedated. Results Result Diagram: 09/07/17 0425 09/07/17 0425 Results 24 hrs Laboratory Tests Test 09/07/17 11:00 09/07/17 12:03 Bedside Glucose 192 152 Medications Medications Current Medications Acetaminophen (Tylenol Liquid) 650 mg Q6H PRN PO PAIN LEVEL 1-3 OR FEVER Last administered on 09/06/17 00:25; Admin Dose 650 MG; Start 08/24/17 at 07:30 Acetaminophen (Tylenol Tab) 650 mg Q6H PRN PO PAIN LEVEL 1-3 OR FEVER Last administered on 09/04/17 21:00; Admin Dose 650 MG; Start 08/24/17 at 07:30 Acetaminophen (Tylenol Supp) 650 mg Q4H PRN [place] PAIN LEVEL 1-3 OR TEMP > 37C Last administered on 09/03/17 20:00; Admin Dose 650 MG; Start 08/24/17 at 07: 30 Morphine Sulfate 2 mg 2 mg Q4H PRN IV PAIN LEVEL 7-10 Last administered on 22:18; Admin Dose 2 MG; Start 08/24/17 at 07:30 Norepinephrine 16 mg/Dextrose 500 ml @ 1.87 mls/hr TITRATE IV Last administered on 08/26/17 14:32; Admin Dose 22.5 MLS/HR; Start 08/26/17 at 13:30 Levetiracetam 750 mg/Dextrose 107.5 ml @ 430 mls/hr Q12 IVPB Last administered on 09/08/17 09:53; Admin Dose 430 MLS/HR; Start 09/04/17 at 21: 00 Midazolam HCl 50 ml @ 1 mls/hr TITRATE IV Last administered on 09/07/17 21:39 ; Admin Dose 4 MLS/HR; Start 09/05/17 at 16:00 Valproate Sodium/ Sodium Chloride (Depacon/NS) 55 ml @ 55 mls/hr Q6 IVPB Last administered on 09/08/17 08:36; Admin Dose 55 MLS/HR; Start 09/07/17 at 00:00 QUANG GUTIERREZ Sep 08, 2017 11:00
--- NOTE | 2017-09-08 11:09 | CONS ---
DATE OF ADMISSION: 08/24/2017 DATE OF CONSULTATION: 09/07/2017 CONSULTATION REPORT. REQUESTING PHYSICIAN: Dr. Bermudez. HISTORY OF PRESENT ILLNESS: The patient is in the intensive care unit, seen by me on 09/07/2017 at the request of Dr. Bermudez for consideration of placement of a percutaneous endoscopic gastrostomy t ube for long-term nutritional support. Patient was admitted to the hospital because of seizure diso rder. In the emergency room, he was found to have pulseless electrical activity and he was resuscit ated. He was intubated and he was admitted to the intensive care unit. The patient is comatose. He is on Versed drip, intubated, percutaneous endoscopic gastrostomy tube placement has been requested. He did have a cardiopulmonary arrest in the emergency room and he was resuscitated. He is intubated. REVIEW OF SYSTEM: Positive for obesity, hypertension, history of flu-like symptoms prior to the adm ission. History of seizure disorder. PHYSICAL EXAMINATION: GENERAL: The patient is a 36-year-old white male, intubated at the time of my consultation. VITAL SIGNS: The blood pressure is 121/75, pulse is 96, temperature 98.7. He is sedated, intubated . CARDIOVASCULAR: Normal heart sounds. RESPIRATORY: Normal breath sounds. ABDOMEN: Showed unremarkable findings. He is being fed through the old orogastric tube. LABORATORY WORKUP: WBC count 12,000, hemoglobin 16.9, platelet count is 267. AST 38, ALT 104 as of 09/06/2017. Potassium 3.9, BUN 28, creatinine 0.6, albumin is 3.0. CLINICAL IMPRESSION: The patient is comatose, status post anoxic encephalopathy status post cardiac arrest, hypertension, obesity, seizure disorder, respiratory failure. PLAN: At this time, I agree with you that the patient could benefit from a percutaneous endoscopic gastrostomy tube placement. Once again, Dr. Bermudez, thank you for this consultation. Dr. Delaney thank you for this consultation . Dictated By: COLIN VILLARREAL/YESI Conf#: [id number] DID#: [id number]
--- NOTE | 2017-09-08 11:19 | CONS ---
DATE OF ADMISSION: 08/24/2017 DATE OF CONSULTATION: 09/08/2017 HISTORY OF PRESENT ILLNESS: The patient in the intensive care unit. The patient was requested to b e seen by me for placement of a percutaneous endoscopic gastrostomy tube for feeding purposes. On e xamination, patient still unresponsive and is intubated. VITAL SIGNS: Blood pressure is 109/71, pulse is 92, respiration 26. He is sedated with Versed CARDIOVASCULAR: Normal heart sounds. RESPIRATORY: Normal breath sounds. ABDOMEN: Shows soft abdomen with no palpable masses, no tenderness, no distention. LABORATORY WORKUP: WBC is 12,000, hemoglobin is 16.9. CLINICAL IMPRESSION: The patient continues to be comatose. The patient's family is considering [facility] and probably patient will be extubated. We will continue to follow the patient's at family's desire. If the family were to request percutan eous endoscopic gastrostomy tube placement that can be considered. Dictated By: COLIN VILLARREAL/YESI Conf#: [id number] DID#: [id number]
--- NOTE | 2017-09-08 13:20 | PN ---
Date/Time of Note Date/Time of Note DATE: 09/08/17 TIME: 13:17 Assessment/Plan VTE Prophylaxis VTE Prophylaxis Intervention: SCD's Lines/Catheters IV Catheter Type (from Nrsg): PICC Line Central line still needed: Yes Urinary Cath still in place: Yes Reason Cath still needed: urinary retention Assessment/Plan Chief Complaint/Hosp Course 1. s/p cardiac arrest 2. Sepsis with Gram + bacteremia 3. Morbid obesity 4. Hypertension 5. history of flu like sickness before admission 6. Anemia 7. Seizure Disorder 8. anoxic brain injury, evident on EEG. 7. Underlying diabetes mellitus. 8. Decreased Urinary output 9. left shoulder rash Problems: Assessment/Plan 1. Pt is DNR 2. terminal extubation on Sunday 3. pOSSIBLE aLLERGY on one of the med Subjective 24 Hr Interval Summary Subjective hx not possible: pt non-verbal, pt critical status Exam/Review of Systems Vital Signs Vitals Vital Signs Date Time Temp Pulse Resp B/P Pulse Ox O2 Delivery O2 Flow Rate FiO2 09/08/17 13:00 94 35 108/69 94 Mechanical Ventilator 09/08/17 12:00 99.2 09/08/17 08:00 70 Intake and Output 09/07/17 09/07/17 09/08/17 15:00 23:00 07:00 Intake Total 841 ml 497 ml 411 ml Output Total 1772 ml 560 ml 290 ml Balance -931 ml -63 ml 121 ml Exam Constitutional: obese Eyes: nl conjunctiva, other (bleeding conjuctiva) ENMT: nl external ears & nose Neck: supple Respiratory: diminished breath sounds Cardiovascular: regular rate and rhythm Gastrointestinal: soft Genitourinary - Male: nl scrotum Extremities: normal pulses Results Result Diagram: 09/07/17 0425 09/07/17 0425 Medications Medications Current Medications Acetaminophen (Tylenol Liquid) 650 mg Q6H PRN PO PAIN LEVEL 1-3 OR FEVER Last administered on 09/06/17 00:25; Admin Dose 650 MG; Start 08/24/17 at 07:30 Acetaminophen (Tylenol Tab) 650 mg Q6H PRN PO PAIN LEVEL 1-3 OR FEVER Last administered on 09/04/17 21:00; Admin Dose 650 MG; Start 08/24/17 at 07:30 Acetaminophen (Tylenol Supp) 650 mg Q4H PRN [place] PAIN LEVEL 1-3 OR TEMP > 37C Last administered on 09/03/17 20:00; Admin Dose 650 MG; Start 08/24/17 at 07: 30 Morphine Sulfate 2 mg 2 mg Q4H PRN IV PAIN LEVEL 7-10 Last administered on 22:18; Admin Dose 2 MG; Start 08/24/17 at 07:30 Norepinephrine 16 mg/Dextrose 500 ml @ 1.87 mls/hr TITRATE IV Last administered on 08/26/17 14:32; Admin Dose 22.5 MLS/HR; Start 08/26/17 at 13:30 Levetiracetam 750 mg/Dextrose 107.5 ml @ 430 mls/hr Q12 IVPB Last administered on 09/08/17 09:53; Admin Dose 430 MLS/HR; Start 09/04/17 at 21: 00 Midazolam HCl 50 ml @ 1 mls/hr TITRATE IV Last administered on 09/07/17 21:39 ; Admin Dose 4 MLS/HR; Start 09/05/17 at 16:00 Valproate Sodium/ Sodium Chloride (Depacon/NS) 55 ml @ 55 mls/hr Q6 IVPB Last administered on 09/08/17 12:11; Admin Dose 55 MLS/HR; Start 09/07/17 at 00:00 AMALIA LUKE Sep 08, 2017 13:20
[2017-09-08] MEDS: MIDAZOLAM (DRIP) 50 mg/50 mL 50 ML IV SCH (13:39)
--- NOTE | 2017-09-08 14:22 | CONS ---
Date/Time of Note Date/Time of Note DATE: 09/08/17 TIME: 14:19 Assessment/Plan Assessment/Plan Chief Complaint/Hosp Course IMPRESSION: 1. Pulseless electrical activity cardiac arrest. EF 50% by echo this admit- no recurrent arrythmia. Likley initial respiratory driven 2. Abnormal electrocardiogram with diffuse ST depressions but in the setting of cardiac arrest. 3. Hypotension-Now HTN 4. Tachycardia consistent with sinus tachycardia. 5. Encephalopathy. 6. History of flu-like illness. 7. Hypothyroidism. 8. Hematuria. 9. Seizure-recurrent per report when sedation lightened 10. Lactic acidosis. 11. Leukocytosis. 12. Positive troponin-minimal in setting of cardiac arrest and now trended negative 14. bacteremia 15. Fevers 16. Hypernatremia-improved Recc: -Tele in ICU -continue abx's and f/u cx data -Follow MS closely -Continue keppra -Rx fevers -ongoing family discussion Problems: Consultation Date/Type/Reason Admit Date/Time Aug 24, 2017 at 07:05 Initial Consult Date 08/27/17 Type of Consultation: cardiology Reason for Consultation cardiac arrest Referring Provider: MIKE LUONG MD Exam/Review of Systems Vital Signs Vitals Vital Signs Date Time Temp Pulse Resp B/P Pulse Ox O2 Delivery O2 Flow Rate FiO2 09/08/17 13:00 94 35 108/69 94 Mechanical Ventilator 09/08/17 12:50 70 09/08/17 12:00 99.2 Intake and Output 09/07/17 09/07/17 09/08/17 15:00 23:00 07:00 Intake Total 841 ml 497 ml 411 ml Output Total 1772 ml 560 ml 290 ml Balance -931 ml -63 ml 121 ml Exam Review of Systems: CONSTITUTIONAL: No fevers, chills. PULMONARY: No sob CARDIOVASCULAR: No chest pain/palpitations GASTROINTESTINAL: No nausea/vomiting. GENITOURINARY: No hematuria/dysuria. MUSCULOSKELETAL: No myagias/arthalgias. PSYCHIATRIC: The patient denies depression. NEUROLOGIC: No weakness Constitutional: other (encephalopathy) Psych: no complaints Head: normocephalic ENMT: mucosa pink and moist Neck: jvd (9 cm water), supple Respiratory: diminished breath sounds Cardiovascular: regular rate and rhythm Gastrointestinal: non-tender, soft Musculoskeletal: muscle tone (normal) Extremities: edema (none) Neurological: other Results Result Diagram: 09/07/17 0425 09/07/17 0425 Medications Medications Current Medications Acetaminophen (Tylenol Liquid) 650 mg Q6H PRN PO PAIN LEVEL 1-3 OR FEVER Last administered on 09/06/17 00:25; Admin Dose 650 MG; Start 08/24/17 at 07:30 Acetaminophen (Tylenol Tab) 650 mg Q6H PRN PO PAIN LEVEL 1-3 OR FEVER Last administered on 09/04/17 21:00; Admin Dose 650 MG; Start 08/24/17 at 07:30 Acetaminophen (Tylenol Supp) 650 mg Q4H PRN [place] PAIN LEVEL 1-3 OR TEMP > 37C Last administered on 09/03/17 20:00; Admin Dose 650 MG; Start 08/24/17 at 07: 30 Morphine Sulfate 2 mg 2 mg Q4H PRN IV PAIN LEVEL 7-10 Last administered on 22:18; Admin Dose 2 MG; Start 08/24/17 at 07:30 Norepinephrine 16 mg/Dextrose 500 ml @ 1.87 mls/hr TITRATE IV Last administered on 08/26/17 14:32; Admin Dose 22.5 MLS/HR; Start 08/26/17 at 13:30 Levetiracetam 750 mg/Dextrose 107.5 ml @ 430 mls/hr Q12 IVPB Last administered on 09/08/17 09:53; Admin Dose 430 MLS/HR; Start 09/04/17 at 21: 00 Midazolam HCl 50 ml @ 1 mls/hr TITRATE IV Last administered on 09/08/17 13:39 ; Admin Dose 4 MLS/HR; Start 09/05/17 at 16:00 Valproate Sodium/ Sodium Chloride (Depacon/NS) 55 ml @ 55 mls/hr Q6 IVPB Last administered on 09/08/17 12:11; Admin Dose 55 MLS/HR; Start 09/07/17 at 00:00 Diphenhydramine/ Zinc Oxide (Benadryl 1% Cr) 1 applic Q6 TOP ; Start 09/08/17 at 18:00 Diphenhydramine HCl (Benadryl) 25 mg Q6H PRN IV ALLERGIC REACTION; Start 09/08 at 13:30 SKYLAR ABDALLA 18, 2017 14:22
[2017-09-08] MEDS: DIPHENHYDRAMINE 1%/ZINC 28.3 GM CR TOP SCH ×2 (17:44→23:46)
[2017-09-09] VITALS (36 sets, daily range): BP systolic 102–137; BP diastolic 61–90; PULSE 79–100; RESP 24–26
[2017-09-09] MEDS: DIPHENHYDRAMINE 1%/ZINC 28.3 GM CR TOP SCH ×4 (05:40→23:49)
[2017-09-09] MEDS: VALPROATE INJ 500 MG in SOD CHLORIDE 0.9% 50 ML IVPB SCH ×4 (05:40→23:49)
[2017-09-09] MEDS: LEVETIRACETAM IV 750 MG in DEXTROSE 5% 100 ML IVPB SCH ×2 (09:28→21:37)
[2017-09-09] MEDS: DIPHENHYDRAMINE 50 MG INJ IV PRN (09:28)
--- NOTE | 2017-09-09 11:30 | CONS ---
Date/Time of Note Date/Time of Note DATE: 09/09/17 TIME: 11:28 Assessment/Plan Assessment/Plan Additional Assessment/Plan Ventilator setting; AC of 20, tidal volume 550, PEEP of 10, 70% FiO2. Assessment and recommendations; 1. Patient admitted with cardiac arrest with ensuing severe anoxic brain injury. 2. Post anoxic seizures, currently controlled. Continue current supportive care. Prognosis is extremely poor. Patient's family has appropriately signed a DNR order. Family likely may opt for terminal extubation. Consultation Date/Type/Reason Admit Date/Time Aug 24, 2017 at 07:05 Initial Consult Date 08/27/17 Type of Consultation: Pulmonary/critical care Referring Provider: MIKE LUONG MD 24 HR Interval Summary Free Text/Dictation Patient's condition remains critical. Patient remains completely unresponsive. Has been off sedation since yesterday morning. No overt seizure activity reported. General exam; young male, orally intubated, unresponsive, currently in no distress. Exam/Review of Systems Vital Signs Vitals Vital Signs Date Time Temp Pulse Resp B/P Pulse Ox O2 Delivery O2 Flow Rate FiO2 09/09/17 10:00 84 26 102/61 96 Mechanical Ventilator 09/09/17 08:00 70 09/09/17 08:00 99.3 Intake and Output 09/08/17 09/08/17 09/09/17 14:59 22:59 06:59 Intake Total 608.5 ml 425 ml 420 ml Output Total 585 ml 390 ml 230 ml Balance 23.5 ml 35 ml 190 ml Exam HEENT exam; supple neck, no JVD. No lymphadenopathy. Midline trachea. Orally intubated. Pupils are dilated and nonreactive. Bilateral subconjunctival hemorrhages are present. Chest exam; clear to auscultation. S1-S2 audible, no murmurs. Regular rhythm. Abdomen exam; soft, protuberant. No organomegaly. Bowel sounds are sluggish. Extremity exam; no peripheral edema. ANCHOR TACKER exam; patient remains completely unresponsive. Results Result Diagram: 09/07/175 09/07/17 0425 Medications Medications Current Medications Acetaminophen (Tylenol Liquid) 650 mg Q6H PRN PO PAIN LEVEL 1-3 OR FEVER Last administered on 09/06/17t 00:25; Admin Dose 650 MG; Start 08/24/17 at 07:30 Acetaminophen (Tylenol Tab) 650 mg Q6H PRN PO PAIN LEVEL 1-3 OR FEVER Last administered on 09/04/17 21:00; Admin Dose 650 MG; Start 08/24/17 at 07:30 Acetaminophen (Tylenol Supp) 650 mg Q4H PRN [place] PAIN LEVEL 1-3 OR TEMP > 37C Last administered on 09/03/17 20:00; Admin Dose 650 MG; Start 08/24/17 at 07: 30 Morphine Sulfate 2 mg 2 mg Q4H PRN IV PAIN LEVEL 7-10 Last administered on 22:18; Admin Dose 2 MG; Start 08/24/17 at 07:30 Norepinephrine 16 mg/Dextrose 500 ml @ 1.87 mls/hr TITRATE IV Last administered on 08/26/17 14:32; Admin Dose 22.5 MLS/HR; Start 08/26/17 at 13:30 Levetiracetam 750 mg/Dextrose 107.5 ml @ 430 mls/hr Q12 IVPB Last administered on 09/09/17 09:28; Admin Dose 430 MLS/HR; Start 09/04/17 at 21: 00 Midazolam HCl 50 ml @ 1 mls/hr TITRATE IV Last administered on 09/08/17 13:39 ; Admin Dose 4 MLS/HR; Start 09/05/17 at 16:00 Valproate Sodium/ Sodium Chloride (Depacon/NS) 55 ml @ 55 mls/hr Q6 IVPB Last administered on 09/09/17 05:40; Admin Dose 55 MLS/HR; Start 09/07/17 at 00:00 Diphenhydramine/ Zinc Oxide (Benadryl 1% Cr) 1 applic Q6 TOP Last administered on 09/09/17 05:40; Admin Dose 1 APPLIC; Start 09/08/17 at 18:00 Diphenhydramine HCl (Benadryl) 25 mg Q6H PRN IV ALLERGIC REACTION Last administered on 09/09/17 09:28; Admin Dose 25 MG; Start 09/08/17 at 13:30 QUANG GUTIERREZ Sep 09, 2017 11:30
--- NOTE | 2017-09-09 11:53 | PN ---
Date/Time of Note Date/Time of Note DATE: 09/09/17 TIME: 11:51 Assessment/Plan VTE Prophylaxis VTE Prophylaxis Intervention: SCD's Lines/Catheters IV Catheter Type (from Nrsg): PICC Line Central line still needed: Yes Urinary Cath still in place: Yes Reason Cath still needed: urinary retention Assessment/Plan Chief Complaint/Hosp Course 1. s/p cardiac arrest 2. Sepsis with Gram + bacteremia 3. Morbid obesity 4. Hypertension 5. history of flu like sickness before admission 6. Anemia 7. Seizure Disorder 8. anoxic brain injury, evident on EEG. 7. Underlying diabetes mellitus. 8. Decreased Urinary output 9.Both shoulder and chest rash Problems: Assessment/Plan 1. continue current treatment 2. Possible terminal extubation on Sunday Subjective 24 Hr Interval Summary Subjective hx not possible: pt non-verbal Exam/Review of Systems Vital Signs Vitals Vital Signs Date Time Temp Pulse Resp B/P Pulse Ox O2 Delivery O2 Flow Rate FiO2 09/09/17 10:00 84 26 102/61 96 Mechanical Ventilator 09/09/17 08:00 70 09/09/17 08:00 99.3 Intake and Output 09/08/17 09/08/17 09/09/17 15:00 23:00 07:00 Intake Total 644.5 ml 425 ml 582.5 ml Output Total 585 ml 450 ml 170 ml Balance 59.5 ml -25 ml 412.5 ml Exam Constitutional: non-verbal Neck: supple Respiratory: diminished breath sounds Cardiovascular: regular rate and rhythm Gastrointestinal: soft Musculoskeletal: swelling Results Result Diagram: 09/07/17 0425 09/07/17 0425 Medications Medications Current Medications Acetaminophen (Tylenol Liquid) 650 mg Q6H PRN PO PAIN LEVEL 1-3 OR FEVER Last administered on 09/06/17 00:25; Admin Dose 650 MG; Start 08/24/17 at 07:30 Acetaminophen (Tylenol Tab) 650 mg Q6H PRN PO PAIN LEVEL 1-3 OR FEVER Last administered on 09/04/17 21:00; Admin Dose 650 MG; Start 08/24/17 at 07:30 Acetaminophen (Tylenol Supp) 650 mg Q4H PRN [place] PAIN LEVEL 1-3 OR TEMP > 37C Last administered on 09/03/17 20:00; Admin Dose 650 MG; Start 08/24/17 at 07: 30 Morphine Sulfate 2 mg 2 mg Q4H PRN IV PAIN LEVEL 7-10 Last administered on 22:18; Admin Dose 2 MG; Start 08/24/17 at 07:30 Norepinephrine 16 mg/Dextrose 500 ml @ 1.87 mls/hr TITRATE IV Last administered on 08/26/17 14:32; Admin Dose 22.5 MLS/HR; Start 08/26/17 at 13:30 Levetiracetam 750 mg/Dextrose 107.5 ml @ 430 mls/hr Q12 IVPB Last administered on 09/09/17 09:28; Admin Dose 430 MLS/HR; Start 09/04/17 at 21: 00 Midazolam HCl 50 ml @ 1 mls/hr TITRATE IV Last administered on 09/08/17 13:39 ; Admin Dose 4 MLS/HR; Start 09/05/17 at 16:00 Valproate Sodium/ Sodium Chloride (Depacon/NS) 55 ml @ 55 mls/hr Q6 IVPB Last administered on 09/09/17 05:40; Admin Dose 55 MLS/HR; Start 09/07/17 at 00:00 Diphenhydramine/ Zinc Oxide (Benadryl 1% Cr) 1 applic Q6 TOP Last administered on 09/09/17 05:40; Admin Dose 1 APPLIC; Start 09/08/17 at 18:00 Diphenhydramine HCl (Benadryl) 25 mg Q6H PRN IV ALLERGIC REACTION Last administered on 09/09/17 09:28; Admin Dose 25 MG; Start 09/08/17 at 13:30 AMALIA LUKE Sep 09, 2017 11:53
--- NOTE | 2017-09-09 12:24 | CONS ---
Date/Time of Note Date/Time of Note DATE: 09/09/17 TIME: 12:23 Assessment/Plan Assessment/Plan Chief Complaint/Hosp Course IMPRESSION: 1. Pulseless electrical activity cardiac arrest. EF 50% by echo this admit- no recurrent arrythmia. Likley initial respiratory driven 2. Abnormal electrocardiogram with diffuse ST depressions but in the setting of cardiac arrest. 3. Hypotension-Now HTN 4. Tachycardia consistent with sinus tachycardia. 5. Encephalopathy. 6. History of flu-like illness. 7. Hypothyroidism. 8. Hematuria. 9. Seizure-recurrent per report when sedation lightened 10. Lactic acidosis. 11. Leukocytosis. 12. Positive troponin-minimal in setting of cardiac arrest and now trended negative 14. bacteremia 15. Fevers 16. Hypernatremia-improved Recc: -Tele in ICU -continue abx's and f/u cx data -Follow MS closely -Continue keppra -Rx fevers -ongoing family discussion Problems: Consultation Date/Type/Reason Admit Date/Time Aug 24, 2017 at 07:05 Initial Consult Date 08/27/17 Type of Consultation: cardiology Reason for Consultation cardiac arrest Referring Provider: MIKE LUONG MD Exam/Review of Systems Vital Signs Vitals Vital Signs Date Time Temp Pulse Resp B/P Pulse Ox O2 Delivery O2 Flow Rate FiO2 09/09/17 10:00 84 26 102/61 96 Mechanical Ventilator 09/09/17 08:00 70 09/09/17 08:00 99.3 Intake and Output 09/08/17 09/08/17 09/09/17 14:59 22:59 06:59 Intake Total 608.5 ml 425 ml 420 ml Output Total 585 ml 390 ml 230 ml Balance 23.5 ml 35 ml 190 ml Exam Review of Systems: CONSTITUTIONAL: No fevers, chills. PULMONARY: intubated CARDIOVASCULAR: No chest pain/palpitations GASTROINTESTINAL: No nausea/vomiting. GENITOURINARY: No hematuria/dysuria. MUSCULOSKELETAL: No myagias/arthalgias. PSYCHIATRIC: The patient denies depression. NEUROLOGIC: Encephalopathy Constitutional: alert Psych: no complaints Head: normocephalic ENMT: mucosa pink and moist Neck: jvd (9 cm water), supple Respiratory: other ([place]) Cardiovascular: regular rate and rhythm Gastrointestinal: non-tender, soft Musculoskeletal: muscle tone (normal) Extremities: edema Neurological: unresponsive Results Result Diagram: 09/07/17 0425 09/07/17 0425 Medications Medications Current Medications Acetaminophen (Tylenol Liquid) 650 mg Q6H PRN PO PAIN LEVEL 1-3 OR FEVER Last administered on 09/06/17 00:25; Admin Dose 650 MG; Start 08/24/17 at 07:30 Acetaminophen (Tylenol Tab) 650 mg Q6H PRN PO PAIN LEVEL 1-3 OR FEVER Last administered on 09/04/17 21:00; Admin Dose 650 MG; Start 08/24/17 at 07:30 Acetaminophen (Tylenol Supp) 650 mg Q4H PRN [place] PAIN LEVEL 1-3 OR TEMP > 37C Last administered on 09/03/17 20:00; Admin Dose 650 MG; Start 08/24/17 at 07: 30 Morphine Sulfate 2 mg 2 mg Q4H PRN IV PAIN LEVEL 7-10 Last administered on 22:18; Admin Dose 2 MG; Start 08/24/17 at 07:30 Norepinephrine 16 mg/Dextrose 500 ml @ 1.87 mls/hr TITRATE IV Last administered on 08/26/17 14:32; Admin Dose 22.5 MLS/HR; Start 08/26/17 at 13:30 Levetiracetam 750 mg/Dextrose 107.5 ml @ 430 mls/hr Q12 IVPB Last administered on 09/09/17 09:28; Admin Dose 430 MLS/HR; Start 09/04/17 at 21: 00 Midazolam HCl 50 ml @ 1 mls/hr TITRATE IV Last administered on 09/08/17 13:39 ; Admin Dose 4 MLS/HR; Start 09/05/17 at 16:00 Valproate Sodium/ Sodium Chloride (Depacon/NS) 55 ml @ 55 mls/hr Q6 IVPB Last administered on 09/09/17 05:40; Admin Dose 55 MLS/HR; Start 09/07/17 at 00:00 Diphenhydramine/ Zinc Oxide (Benadryl 1% Cr) 1 applic Q6 TOP Last administered on 09/09/17 05:40; Admin Dose 1 APPLIC; Start 09/08/17 at 18:00 Diphenhydramine HCl (Benadryl) 25 mg Q6H PRN IV ALLERGIC REACTION Last administered on 09/09/17t 09:28; Admin Dose 25 MG; Start 09/08/17 at 13:30 SKYLAR ABDALLA Sep 09, 2017 12:24
--- NOTE | 2017-09-09 19:00 | CONS ---
DATE OF ADMISSION: 08/24/2017 DATE OF CONSULTATION: HISTORY OF PRESENT ILLNESS: The patient is 36-year-old. He is unresponsive, intubated. He is in i ntensive care unit. Patient with acute encephalopathy, abnormal EEG in which he is on IV Depakene a s well as IV Keppra ____who was on Versed at 4 mg per hour on IV drip with the ____ stopped yesterda y. The patient is ____. He have no jerking movement, no seizure-like activity. ____ for him elect roencephalogram for more evaluation and treatment. The patient accompanied by his fiancee in the ro om. PHYSICAL EXAMINATION GENERAL: The patient does not follow any commands, looks ____. CRANIAL NERVES: Cranial nerve II: Pupils equal on both sides ____. Cranial nerves III, IV and : Extraocular muscles intact. Cranial nerves V and VII: Intact corneal reflex. Cranial nerve VIII through XII could not assess. MOTOR: Slight movement for painful stimuli. Sensation ____ touch and temperature. COORDINATION: Could not assess. HEART: Regular rate and rhythm. LUNGS: Equal breath sounds. ABDOMEN: Soft, relaxed, nondistended, nontenderness. ASSESSMENT AND PLAN: 1. The patient is a 36-year-old status post acute encephalopathy. 2. Respiratory failure with the patient intubated, ____ ventilation. 3. History of seizure disorder. We can give the patient Keppra as well as Depakene. I am going to follow up the patient's electroencephalogram for more evaluation and treatment. 4. The patient has underlying lactic acidosis and leukocytosis, upon admission was underlying infec tion which was on antibiotic. 5. Follow up the patient with Depakene level, maximize his dose as well as we give him I recommend to continue Versed drip and keep the patient under seizure precautions from now. The patient is sti ll unresponsive. Again, thank you. Dictated By: JULY CLARK MD NA/NTS Conf#: [id number] DID#: [id number] CC: MIKE LUONG MD;*EndCC*
[2017-09-10] VITALS (35 sets, daily range): BP systolic 110–139; BP diastolic 62–94; PULSE 77–99; RESP 15–32
[2017-09-10] MEDS: VALPROATE INJ 500 MG in SOD CHLORIDE 0.9% 50 ML IVPB SCH ×3 (05:50→17:31)
[2017-09-10] MEDS: DIPHENHYDRAMINE 50 MG INJ IV PRN (05:50)
[2017-09-10] MEDS: DIPHENHYDRAMINE 1%/ZINC 28.3 GM CR TOP SCH ×3 (06:00→17:31)
--- NOTE | 2017-09-10 07:06 | PN ---
DATE: 09/08/2017 HISTORY OF PRESENT ILLNESS: The patient is 36 years old status post anoxic encephalopathy, abnormal EEG and with the patient on Versed, Depakote, and Keppra, with the patient intubated on the vent. Since the patient is unresponsive, does not follow any verbal commands. His eyes open. No sign of seizure activity. PHYSICAL EXAMINATION: The patient's eyes open, does not follow any verbal commands. CRANIAL NERVES: Cranial nerve II: Pupils equal on both sides, . Cranial nerves III, IV and V I: -- Extraocular muscles intact. Cranial nerve V: Equal sensation to face. Cranial nerve VII: Symmetrical face. Cranial nerve VIII: Decreased hearing bilaterally. Cranial nerves IX and X: El evates palate. Cranial nerve XI: Elevates shoulder 5/5. Cranial nerve XII: Straight tongue. MOTOR: Decreased but slight movement for painful stimuli since he can . HEART: Regular rate and rhythm. LUNGS: Equal breath sounds. ABDOMEN: Soft, relaxed, nondistended, nontender. ASSESSMENT AND PLAN: 1. The patient is 36 years old, underlying severe encephalopathy. 2. Abnormal EEG with blebs for which we him Keppra and Depakote and follow up the patient with anot her EEG for more evaluation and treatment. 3. Status post sepsis, for which the patient has gram-positive bacteremia. The patient is followed by infectious disease team. 4. History of seizure disorder. We will keep the patient on Keppra. Will add for him Depakote and continue him on Versed as well as ventilation. No clinical seizure activity is seen. 5. History of obesity. 6. Underlying diabetes. Follow up the patient with sliding scale insulin and Accu-Chek. Dictated By: JULY KOLB/YESI Conf#: [id number] DID#: [id number]
[2017-09-10 08:17] LABS: CALCIUM 9.2 mg/dl (8.4-10.2); CREATININE 0.56 mg/dl (0.61-1.24); POTASSIUM 4.2 mmol/L (3.5-5.1)
--- NOTE | 2017-09-10 09:12 | CONS ---
Date/Time of Note Date/Time of Note DATE: 09/10/17 TIME: 09:11 Consult Date/Type/Reason Admit Date/Time Aug 24, 2017 at 07:05 Initial Consult Date 08/27/17 Type of Consultation: Pulmonary Ordering Provider: MIKE LUONG MD Subjective No events. Remains somnolent on mechanical ventilation. Opens eyes but not following commands. Objective Vital Signs Date Time Temp Pulse Resp B/P Pulse Ox O2 Delivery O2 Flow Rate FiO2 09/10/17 08:00 98.3 81 26 114/73 98 Mechanical Ventilator 09/10/17 05:24 70 Intake and Output 09/09/17 09/09/17 09/10/17 14:59 22:59 06:59 Intake Total 695.0 ml 425 ml 638 ml Output Total 425 ml 605 ml 270 ml Balance 270.0 ml -180 ml 368 ml Exam PHYSICAL EXAMINATION GENERAL: Young gentleman intubated on mechanical ventilation. VITAL SIGNS: see below. HEENT: Pupils sluggish. CARDIAC: S1, S2, 1/6 systolic ejection murmur CHEST: Diminished air entry bilaterally. ABDOMEN: Mildly distended. Bowel sounds present no guarding or rebound EXTREMITIES: No cyanosis, clubbing edema +1 NEUROLOGIC: Unable to assess. Results/Medications Result Diagram: 09/07/17 0425 09/10/17 0530 Results 24 hrs Laboratory Tests Test 09/10/17 05:30 Sodium Level 146 H Potassium Level 4.2 Chloride Level 110 Carbon Dioxide Level 25 Anion Gap 15 Blood Urea Nitrogen 24 H Creatinine 0.56 L Glucose Level 255 H Calcium Level 9.2 Medications Current Medications Acetaminophen (Tylenol Liquid) 650 mg Q6H PRN PO PAIN LEVEL 1-3 OR FEVER Last administered on 09/06/17 00:25; Admin Dose 650 MG; Start 08/24/17 at 07:30 Acetaminophen (Tylenol Tab) 650 mg Q6H PRN PO PAIN LEVEL 1-3 OR FEVER Last administered on 09/04/17 21:00; Admin Dose 650 MG; Start 08/24/17 at 07:30 Acetaminophen (Tylenol Supp) 650 mg Q4H PRN [place] PAIN LEVEL 1-3 OR TEMP > 37C Last administered on 09/03/17 20:00; Admin Dose 650 MG; Start 08/24/17 at 07: 30 Morphine Sulfate 2 mg 2 mg Q4H PRN [place] PAIN LEVEL 7-10 Last administered on 22:18; Admin Dose 2 MG; Start 08/24/17 at 07:30 Norepinephrine 16 mg/Dextrose 500 ml @ 1.87 mls/hr TITRATE IV Last administered on 08/26/17 14:32; Admin Dose 22.5 MLS/HR; Start 08/26/17 at 13:30 Levetiracetam 750 mg/Dextrose 107.5 ml @ 430 mls/hr Q12 IVPB Last administered on 09/09/17 21:37; Admin Dose 430 MLS/HR; Start 09/04/17 at 21: 00 Midazolam HCl 50 ml @ 1 mls/hr TITRATE IV Last administered on 09/08/17 13:39 ; Admin Dose 4 MLS/HR; Start 09/05/17 at 16:00 Valproate Sodium/ Sodium Chloride (Depacon/NS) 55 ml @ 55 mls/hr Q6 IVPB Last administered on 09/10/17 05:50; Admin Dose 55 MLS/HR; Start 09/07/17 at 00:00 Diphenhydramine/ Zinc Oxide (Benadryl 1% Cr) 1 applic Q6 TOP Last administered on 09/09/17 23:49; Admin Dose 1 APPLIC; Start 09/08/17 at 18:00 Diphenhydramine HCl (Benadryl) 25 mg Q6H PRN IV ALLERGIC REACTION Last administered on 09/10/17 05:50; Admin Dose 25 MG; Start 09/08/17 at 13:30 Assessment/Plan Chief Complaint/Hosp Course IMP: 1. s/p Cardiopulmonary arrest--likely due to aspiration and central airway obstruction 2. Seizure Disorder, now likely persistent vegetative state. 3. Gram + bacteremia--likely contaminant 4. Probable significant anoxic brain injury repeat EEG requested by neurologist. 5. Hypoxemic respiratory failure. Improved oxygenation this morning. 6. Morbid obesity 7. DM RECS: 1. Continue mechanical ventilation for weaning, decrease FiO2 and PEEP as tolerated. Currently on volume control ventilation. 2. Anti-epileptic Rx neuro recommendations repeat EEG results pending. 3. Trial of nasogastric tube feeding 4. Abx 5. F/U Cx's 6. DVT and GI prophylaxis We will discuss EEG results and plan of care with family. Need to proceed with either tracheostomy or comfort measures given time he has been on mechanical ventilation. Problems: JULIANA WASHINGTON MD, [facility] Sep 10, 2017 09:12
[2017-09-10] MEDS: LEVETIRACETAM IV 750 MG in DEXTROSE 5% 100 ML IVPB SCH (09:44)
--- NOTE | 2017-09-10 09:47 | CONS ---
Date/Time of Note Date/Time of Note DATE: 09/10/17 TIME: 09:44 Consultation Date/Type/Reason Admit Date/Time Aug 24, 2017 at 07:05 Initial Consult Date 08/27/17 Type of Consultation: Palliative care Reason for Consultation First of all patients sara has decided to wait until September 11 and complete a compassionate extubation. She is waiting for patient's godmother to arrive in her decision has not changed insofar as level of care. Goals of care have been discussed pain and symptom management psychosocial issues other palliative care issues on my prior note. We will continue to support patient's significant other who is also the agent for ongoing care. Referring Provider: MIKE LUONG MD Exam/Review of Systems Vital Signs Vitals Vital Signs Date Time Temp Pulse Resp B/P Pulse Ox O2 Delivery O2 Flow Rate FiO2 09/10/17 08:00 98.3 81 26 114/73 98 Mechanical Ventilator 09/10/17 05:24 70 Intake and Output 09/09/17 09/09/17 09/10/17 15:00 23:00 07:00 Intake Total 532.5 ml 425 ml 638 ml Output Total 425 ml 655 ml 270 ml Balance 107.5 ml -230 ml 368 ml Exam Neurological: SERVICE ORDER CLERK II-XII intact, nl mental status, nl speech, nl strength, other (The dictation for cranial nerves mental status normal speech and strength are wrong and is a computer air. This gentleman has no response any purposeful stimulation including speech or tactile stimulation. He is not overbreathing the ventilator there is no gag reflex. Sluggish pupillary light reflex only) Results Result Diagram: 09/07/17 0425 09/10/17 0530 Results 24 hrs Laboratory Tests Test 09/10/17 05:30 Sodium Level 146 H Potassium Level 4.2 Chloride Level 110 Carbon Dioxide Level 25 Anion Gap 15 Blood Urea Nitrogen 24 H Creatinine 0.56 L Glucose Level 255 H Calcium Level 9.2 Medications Medications Current Medications Acetaminophen (Tylenol Liquid) 650 mg Q6H PRN PO PAIN LEVEL 1-3 OR FEVER Last administered on 09/06/17 00:25; Admin Dose 650 MG; Start 08/24/17 at 07:30 Acetaminophen (Tylenol Tab) 650 mg Q6H PRN PO PAIN LEVEL 1-3 OR FEVER Last administered on 09/04/17 21:00; Admin Dose 650 MG; Start 08/24/17 at 07:30 Acetaminophen (Tylenol Supp) 650 mg Q4H PRN [place] PAIN LEVEL 1-3 OR TEMP > 37C Last administered on 09/03/17 20:00; Admin Dose 650 MG; Start 08/24/17 at 07: 30 Morphine Sulfate 2 mg 2 mg Q4H PRN IV PAIN LEVEL 7-10 Last administered on 22:18; Admin Dose 2 MG; Start 08/24/17 at 07:30 Norepinephrine 16 mg/Dextrose 500 ml @ 1.87 mls/hr TITRATE IV Last administered on 08/26/17 14:32; Admin Dose 22.5 MLS/HR; Start 08/26/17 at 13:30 Levetiracetam 750 mg/Dextrose 107.5 ml @ 430 mls/hr Q12 IVPB Last administered on 09/09/17 21:37; Admin Dose 430 MLS/HR; Start 09/04/17 at 21: 00 Midazolam HCl 50 ml @ 1 mls/hr TITRATE IV Last administered on 09/08/17 13:39 ; Admin Dose 4 MLS/HR; Start 09/05/17 at 16:00 Valproate Sodium/ Sodium Chloride (Depacon/NS) 55 ml @ 55 mls/hr Q6 IVPB Last administered on 09/10/17 05:50; Admin Dose 55 MLS/HR; Start 09/07/17 at 00:00 Diphenhydramine/ Zinc Oxide (Benadryl 1% Cr) 1 applic Q6 TOP Last administered on 09/09/17 23:49; Admin Dose 1 APPLIC; Start 09/08/17 at 18:00 Diphenhydramine HCl (Benadryl) 25 mg Q6H PRN IV ALLERGIC REACTION Last administered on 09/10/17 05:50; Admin Dose 25 MG; Start 09/08/17 at 13:30 NETTA ROMERO Sep 10, 2017 09:47
--- NOTE | 2017-09-10 10:33 | CONS ---
Date/Time of Note Date/Time of Note DATE: 09/10/17 TIME: 10:31 Assessment/Plan Assessment/Plan Chief Complaint/Hosp Course IMPRESSION: 1. Pulseless electrical activity cardiac arrest. EF 50% by echo this admit- no recurrent arrythmia. Likley initial respiratory driven 2. Abnormal electrocardiogram with diffuse ST depressions but in the setting of cardiac arrest. 3. Hypotension-Now HTN 4. Tachycardia consistent with sinus tachycardia. 5. Encephalopathy. 6. History of flu-like illness. 7. Hypothyroidism. 8. Hematuria. 9. Seizure-recurrent per report when sedation lightened 10. Lactic acidosis. 11. Leukocytosis. 12. Positive troponin-minimal in setting of cardiac arrest and now trended negative 14. bacteremia 15. Fevers 16. Hypernatremia-improved Recc: -ICU monitoring -continue abx's and f/u cx data -Follow MS closely -Continue keppra -Rx fevers -ongoing family discussion Problems: Consultation Date/Type/Reason Admit Date/Time Aug 24, 2017 at 07:05 Initial Consult Date 08/27/17 Type of Consultation: cardiology Reason for Consultation cardiac arrest Referring Provider: MIKE LUONG MD Exam/Review of Systems Vital Signs Vitals Vital Signs Date Time Temp Pulse Resp B/P Pulse Ox O2 Delivery O2 Flow Rate FiO2 09/10/17 08:00 98.3 81 26 114/73 98 Mechanical Ventilator 09/10/17 05:24 70 Intake and Output 09/09/17 09/09/17 09/10/17 15:00 23:00 07:00 Intake Total 532.5 ml 425 ml 638 ml Output Total 425 ml 655 ml 270 ml Balance 107.5 ml -230 ml 368 ml Exam Review of Systems: CONSTITUTIONAL: No fevers, chills. PULMONARY: No sob CARDIOVASCULAR: No chest pain/palpitations GASTROINTESTINAL: No nausea/vomiting. GENITOURINARY: No hematuria/dysuria. MUSCULOSKELETAL: No myagias/arthalgias. PSYCHIATRIC: The patient denies depression. NEUROLOGIC: non-responsive Constitutional: other (non-responsive) Head: normocephalic ENMT: intubated Neck: jvd (9 cm water), supple Respiratory: other (upper airway rhoncherous sounds) Cardiovascular: regular rate and rhythm Gastrointestinal: non-tender, soft Musculoskeletal: muscle tone (normal) Extremities: edema (trace/B) Neurological: unresponsive Results Result Diagram: 09/07/17 0425 09/10/17 0530 Results 24 hrs Laboratory Tests Test 09/10/17 05:30 Sodium Level 146 H Potassium Level 4.2 Chloride Level 110 Carbon Dioxide Level 25 Anion Gap 15 Blood Urea Nitrogen 24 H Creatinine 0.56 L Glucose Level 255 H Calcium Level 9.2 Medications Medications Current Medications Acetaminophen (Tylenol Liquid) 650 mg Q6H PRN PO PAIN LEVEL 1-3 OR FEVER Last administered on 09/06/17 00:25; Admin Dose 650 MG; Start 08/24/17 at 07:30 Acetaminophen (Tylenol Tab) 650 mg Q6H PRN PO PAIN LEVEL 1-3 OR FEVER Last administered on 09/04/17 21:00; Admin Dose 650 MG; Start 08/24/17 at 07:30 Acetaminophen (Tylenol Supp) 650 mg Q4H PRN [place] PAIN LEVEL 1-3 OR TEMP > 37C Last administered on 09/03/17 20:00; Admin Dose 650 MG; Start 08/24/17 at 07: 30 Morphine Sulfate 2 mg 2 mg Q4H PRN IV PAIN LEVEL 7-10 Last administered on 22:18; Admin Dose 2 MG; Start 08/24/17 at 07:30 Norepinephrine 16 mg/Dextrose 500 ml @ 1.87 mls/hr TITRATE IV Last administered on 08/26/17 14:32; Admin Dose 22.5 MLS/HR; Start 08/26/17 at 13:30 Levetiracetam 750 mg/Dextrose 107.5 ml @ 430 mls/hr Q12 IVPB Last administered on 09/10/17 09:44; Admin Dose 430 MLS/HR; Start 09/04/17 at 21: 00 Midazolam HCl 50 ml @ 1 mls/hr TITRATE IV Last administered on 09/08/17 13:39 ; Admin Dose 4 MLS/HR; Start 09/05/17 at 16:00 Valproate Sodium/ Sodium Chloride (Depacon/NS) 55 ml @ 55 mls/hr Q6 IVPB Last administered on 09/10/17 05:50; Admin Dose 55 MLS/HR; Start 09/07/17 at 00:00 Diphenhydramine/ Zinc Oxide (Benadryl 1% Cr) 1 applic Q6 TOP Last administered on 09/09/17 23:49; Admin Dose 1 APPLIC; Start 09/08/17 at 18:00 Diphenhydramine HCl (Benadryl) 25 mg Q6H PRN IV ALLERGIC REACTION Last administered on 09/10/17 05:50; Admin Dose 25 MG; Start 09/08/17 at 13:30 SKYLAR ABDALLA Sep 10, 2017 10:33
--- NOTE | 2017-09-10 10:51 | PN ---
SALVATOREAMALIA 09/10/17 1051: Date/Time of Note Date/Time of Note DATE: 09/10/17 TIME: 10:49 Assessment/Plan VTE Prophylaxis VTE Prophylaxis Intervention: SCD's Lines/Catheters IV Catheter Type (from Nrsg): PICC Line Central line still needed: Yes Urinary Cath still in place: Yes Reason Cath still needed: urinary retention Assessment/Plan Chief Complaint/Hosp Course 1. s/p cardiac arrest 2. Sepsis with Gram + bacteremia , better 3. Morbid obesity 4. Hypertension, cintrolled 5. history of flu like sickness before admission 6. Anemia 7. Seizure Disorder 8. anoxic brain injury, evident on EEG. 7. Underlying diabetes mellitus. 8. Decreased Urinary output 9. Both shoulder and chest rash, better Problems: Assessment/Plan 1. continue treatment 2. Pending terminal extubation per family request Subjective 24 Hr Interval Summary Subjective hx not possible: pt non-verbal Exam/Review of Systems Vital Signs Vitals Vital Signs Date Time Temp Pulse Resp B/P Pulse Ox O2 Delivery O2 Flow Rate FiO2 09/10/17 08:00 98.3 81 26 114/73 98 Mechanical Ventilator 09/10/17 05:24 70 Intake and Output 09/09/17 09/09/17 09/10/17 14:59 22:59 06:59 Intake Total 695.0 ml 425 ml 638 ml Output Total 425 ml 605 ml 270 ml Balance 270.0 ml -180 ml 368 ml Exam Constitutional: non-verbal Head: normocephalic ENMT: other (subconjuctival bleeding) Respiratory: diminished breath sounds Cardiovascular: regular rate and rhythm Gastrointestinal: soft Genitourinary - Male: other (wilcox) Results Result Diagram: 09/07/17 0425 09/10/17 0530 Results 24 hrs Laboratory Tests Test 09/10/17 05:30 Sodium Level 146 H Potassium Level 4.2 Chloride Level 110 Carbon Dioxide Level 25 Anion Gap 15 Blood Urea Nitrogen 24 H Creatinine 0.56 L Glucose Level 255 H Calcium Level 9.2 Medications Medications Current Medications Acetaminophen (Tylenol Liquid) 650 mg Q6H PRN PO PAIN LEVEL 1-3 OR FEVER Last administered on 09/06/17t 00:25; Admin Dose 650 MG; Start 08/24/17 at 07:30 Acetaminophen (Tylenol Tab) 650 mg Q6H PRN PO PAIN LEVEL 1-3 OR FEVER Last administered on 09/04/17 21:00; Admin Dose 650 MG; Start 08/24/17 at 07:30 Acetaminophen (Tylenol Supp) 650 mg Q4H PRN [place] PAIN LEVEL 1-3 OR TEMP > 37C Last administered on 09/03/17 20:00; Admin Dose 650 MG; Start 08/24/17 at 07: 30 Morphine Sulfate 2 mg 2 mg Q4H PRN IV PAIN LEVEL 7-10 Last administered on 22:18; Admin Dose 2 MG; Start 08/24/17 at 07:30 Norepinephrine 16 mg/Dextrose 500 ml @ 1.87 mls/hr TITRATE IV Last administered on 08/26/17 14:32; Admin Dose 22.5 MLS/HR; Start 08/26/17 at 13:30 Levetiracetam 750 mg/Dextrose 107.5 ml @ 430 mls/hr Q12 IVPB Last administered on 09/10/17 09:44; Admin Dose 430 MLS/HR; Start 09/04/17 at 21: 00 Midazolam HCl 50 ml @ 1 mls/hr TITRATE IV Last administered on 09/08/17 13:39 ; Admin Dose 4 MLS/HR; Start 09/05/17 at 16:00 Valproate Sodium/ Sodium Chloride (Depacon/NS) 55 ml @ 55 mls/hr Q6 IVPB Last administered on 09/10/17 05:50; Admin Dose 55 MLS/HR; Start 09/07/17 at 00:00 Diphenhydramine/ Zinc Oxide (Benadryl 1% Cr) 1 applic Q6 TOP Last administered on 09/09/17 23:49; Admin Dose 1 APPLIC; Start 09/08/17 at 18:00 Diphenhydramine HCl (Benadryl) 25 mg Q6H PRN IV ALLERGIC REACTION Last administered on 09/10/17 05:50; Admin Dose 25 MG; Start 09/08/17 at 13:30 ELMER RAE MD 09/10/17 1725: Assessment/Plan Assessment/Plan Chief Complaint/Hosp Course Pt seen and examined with TRADING FLOOR OPERATOR. Decision to be made tmw Problems: Exam/Review of Systems Results Result Diagram: 09/07/17 8415 09/10/17 4930 AMALIA LUKE Sep 10, 2017 10:51 ELMER RAE MD Sep 10, 2017 17:25
[2017-09-10] MEDS ORDERED: MIDAZOLAM (DRIP) 50 mg/50 mL 50 ML IV SCH (19:30)
[2017-09-10] MEDS: MIDAZOLAM (DRIP) 50 mg/50 mL 50 ML IV SCH (19:35)
[2017-09-10] MEDS: LEVETIRACETAM IV 1,500 MG in DEXTROSE 5% 100 ML IVPB SCH (21:01)
[2017-09-11] VITALS (38 sets, daily range): BP systolic 116–162; BP diastolic 71–93; PULSE 83–116; RESP 19–26
[2017-09-11] MEDS ORDERED: VALPROATE INJ 750 MG in SOD CHLORIDE 0.9% 50 ML IVPB SCH ×2
[2017-09-11] MEDS: DIPHENHYDRAMINE 1%/ZINC 28.3 GM CR TOP SCH ×4 (03:21→19:08)
[2017-09-11] MEDS: DIPHENHYDRAMINE 50 MG INJ IV PRN (06:00)
[2017-09-11] MEDS: VALPROATE INJ 500 MG in SOD CHLORIDE 0.9% 50 ML IVPB SCH ×3 (06:03→19:08)
--- NOTE | 2017-09-11 06:29 | PN ---
DATE: 09/10/2017 HISTORY OF PRESENT ILLNESS: Patient is a 36-year-old with underlying decreased mini mental status. Patient is unresponsive, intubated, underlying seizure disorder along with a patient who is on Depa kote 500 mg 4 times a day, as well as Keppra 750 mg twice a day. Order for him EEG for more evaluat ion and treatment, and with the patient having seizure activity, in which we are going to increase h is Depakote to 750 mg 4 times a day, Keppra 1500 mg twice a day and with him on Versed. We will fol low up the patient's electroencephalogram in a.m., and follow up the patient with Depakote level, an d which are discussed with his fiancee about his status. Follow up the patient with EEG in a.m., an d I told Dr. Bermudez, he will agree with the plan and who might follow up with patient's wishes, and his fiancee. PHYSICAL EXAMINATION: GENERAL: The patient is alert, awake. The patient does not follow any commands, does not have any verbal commands. CRANIAL NERVES: Cranial nerve II: Pupils equal on both sides. Cranial nerves III, IV and : Int act eye movements for Doll's maneuver. Cranial nerve V and VII: Intact corneal reflux. Cranial ne rves VIII through XII: Could not assess. MOTOR: Slight movement for painful stimuli. Sensation, gait, coordination could not assess. HEART: Regular rate and rhythm. LUNGS: Equal breath sounds. ABDOMEN: Soft, relaxed, nondistended, no tenderness. ASSESSMENT AND PLAN: 1. Patient is 36 years old status post acute encephalopathy, patient unresponsive. 2. Decreased mini mental status, probably secondary to #1. 3. Seizure activity in which I am going to increase Depakote from 500 to 750 four times a day and t hen give Keppra from 750 to 1500 twice a day. Versed to be instated and would continue watching the patient. We will follow up the patient with EEG in a.m. 4. Psych consult. His fiancee about his status and the treatment. We will give him the maxi mum treatment of the seizures, and see how the patient responds to that. Dictated By: JULY KOLB/YESI Conf#: [id number] [facility]#: [id number]
[2017-09-11] MEDS: LEVETIRACETAM IV 1,500 MG in DEXTROSE 5% 100 ML IVPB SCH (08:33)
--- NOTE | 2017-09-11 09:29 | CONS ---
Date/Time of Note Date/Time of Note DATE: 09/11/17 TIME: 09:27 Assessment/Plan Assessment/Plan Additional Assessment/Plan 1. Pulseless electrical activity cardiac arrest. EF 50% by echo this admit- no recurrent arrythmia. Reuben initial respiratory driven - now planning for paliation per family. 2. Abnormal electrocardiogram with diffuse ST depressions but in the setting of cardiac arrest- no cp now, no intervention planned. 3. Hypotension-Now HTN - well rx. 4. Tachycardia consistent with sinus tachycardia - rate controlled now. 5. Encephalopathy. 6. History of flu-like illness. 7. Hypothyroidism. 8. Hematuria. 9. Seizure-recurrent per report when sedation lightened - now neuro follows. 10. Lactic acidosis. 11. Leukocytosis. 12. Positive troponin-minimal in setting of cardiac arrest and now trended negative 14. bacteremia 15. Fevers 16. Hypernatremia-improved Consultation Date/Type/Reason Admit Date/Time Aug 24, 2017 at 07:05 Initial Consult Date 08/27/17 Type of Consultation: cardiology Referring Provider: MIKE LUONG MD 24 HR Interval Summary Free Text/Dictation NO acute events - palliative care likely to follow. ROS: No fever, no chills, no nausea, no vomiting, no diarrhea/constipation No recent weight changes No chest pain, no PND, no orthopnea No dizziness, blurred vision No thirst, no heat or cold intolerance (per nurse) Exam/Review of Systems Vital Signs Vitals Vital Signs Date Time Temp Pulse Resp B/P Pulse Ox O2 Delivery O2 Flow Rate FiO2 09/11/17 06:00 91 26 140/82 92 Mechanical Ventilator 09/11/17 04:00 98.5 09/11/17 03:10 70 Intake and Output 09/10/17 09/10/17 09/11/17 15:00 23:00 07:00 Intake Total 532.5 ml 505 ml 445 ml Output Total 445 ml 280 ml 270 ml Balance 87.5 ml 225 ml 175 ml Exam General: WN/WD/NAD, AOx 0 HEENT: Unicetric/atraumatic/EOMI (does not follow commands) NECK: JVD elevated, no thyromegaly - intub Lymph: no lymphadenopathy HEART: regular with no S3, II/ systolic murmur at apex LUNGS: Coarse sounds ABD: soft, NT, ND, +BS : Intact Neuro: non focal SKIN: chronic changes EXT: trace edema Results Result Diagram: 09/07/17 0425 09/10/17 0530 Results 24 hrs Laboratory Tests Test 09/10/17 20:40 09/11/17 07:04 Valproic Acid (Depakene) Level 121 H Carbamazepine (Tegretol) Level < 3.0 L Medications Medications Current Medications Acetaminophen (Tylenol Liquid) 650 mg Q6H PRN PO PAIN LEVEL 1-3 OR FEVER Last administered on 09/06/17 00:25; Admin Dose 650 MG; Start 08/24/17 at 07:30 Acetaminophen (Tylenol Tab) 650 mg Q6H PRN PO PAIN LEVEL 1-3 OR FEVER Last administered on 09/04/17 21:00; Admin Dose 650 MG; Start 08/24/17 at 07:30 Acetaminophen (Tylenol Supp) 650 mg Q4H PRN [place] PAIN LEVEL 1-3 OR TEMP > 37C Last administered on 09/03/17 20:00; Admin Dose 650 MG; Start 08/24/17 at 07: 30 Morphine Sulfate 2 mg 2 mg Q4H PRN IV PAIN LEVEL 7-10 Last administered on 22:18; Admin Dose 2 MG; Start 08/24/17 at 07:30 Norepinephrine/ Dextrose (Levophed/D5W) 500 ml @ 1.87 mls/hr TITRATE IV Last administered on 08/26/17 14:32; Admin Dose 22.5 MLS/HR; Start 08/26/17 at 13:30 Diphenhydramine/ Zinc Oxide (Benadryl 1% Cr) 1 applic Q6 TOP Last administered on 09/11/17 06:00; Admin Dose 1 APPLIC; Start 09/08/17 at 18:00 Diphenhydramine HCl 25 mg 25 mg Q6H PRN IV ALLERGIC REACTION Last administered on 09/11/17 06:00; Admin Dose 25 MG; Start 09/08/17 at 13:30 Levetiracetam 1500 mg/Dextrose 115 ml @ 430 mls/hr Q12 IVPB Last administered on 09/11/17 08:33; Admin Dose 430 MLS/HR; Start 09/10/17 at 21:00 Midazolam HCl 50 ml @ 1 mls/hr TITRATE IV ; Start 09/10/17 at 19:30 Valproate Sodium/ Sodium Chloride (Depacon/NS) 55 ml @ 55 mls/hr Q6 IVPB Last administered on 09/11/17t 06:03; Admin Dose 55 MLS/HR; Start 09/11/17 at 06:00 TRACY MENDOZA MD Sep 11, 2017 09:29
--- NOTE | 2017-09-11 12:43 | CONS ---
Date/Time of Note Date/Time of Note DATE: 09/11/17 TIME: 12:41 Assessment/Plan Assessment/Plan Additional Assessment/Plan Ventilator setting; AC of 26, tidal volume 550, PEEP of 10, 70% FiO2. Patient currently on Versed 2 mg/h. Assessment and recommendations; 1. Patient admitted with cardiac arrest status post severe anoxic brain injury. 2. Postanoxic seizure activity. Continue current supportive care. Patient's family has opted for terminal extubation sometime today. Consultation Date/Type/Reason Admit Date/Time Aug 24, 2017 at 07:05 Initial Consult Date 08/27/17 Type of Consultation: Pulmonary/critical care Referring Provider: MIKE LUONG MD 24 HR Interval Summary Free Text/Dictation Patient condition remains critical. Patient occasionally exhibiting generalized twitching movements. Patient however has remained hemodynamically stable. General exam; young male, orally intubated, sedated, currently in no distress. Exam/Review of Systems Vital Signs Vitals Vital Signs Date Time Temp Pulse Resp B/P Pulse Ox O2 Delivery O2 Flow Rate FiO2 09/11/17 11:10 83 26 98 70 09/11/17 11:00 125/73 Mechanical Ventilator 09/11/17 08:00 99.2 Intake and Output 09/10/17 09/10/17 09/11/17 15:00 23:00 07:00 Intake Total 532.5 ml 505 ml 445 ml Output Total 445 ml 280 ml 270 ml Balance 87.5 ml 225 ml 175 ml Exam HEENT exam; supple neck, no JVD. No lymphadenopathy. Midline trachea. No thyromegaly. Orally intubated. Pupils are dilated bilaterally and nonreactive to light. Mild bilateral subconjunctival hemorrhages are present. Chest exam; clear to auscultation. S1-S2 audible, no murmurs. Regular rhythm. Abdomen exam; protuberant. No organomegaly. Bowel sounds audible. Extremity exam; no edema. EMBROIDERY SPECIALIST exam; patient exhibiting occasional generalized twitching movements. Results Result Diagram: 09/07/17 0425 09/10/17 0530 Results 24 hrs Laboratory Tests Test 09/10/17 20:40 09/11/17 07:04 Valproic Acid (Depakene) Level 121 H Carbamazepine (Tegretol) Level < 3.0 L Medications Medications Current Medications Acetaminophen (Tylenol Liquid) 650 mg Q6H PRN PO PAIN LEVEL 1-3 OR FEVER Last administered on 09/06/17 00:25; Admin Dose 650 MG; Start 08/24/17 at 07:30 Acetaminophen (Tylenol Tab) 650 mg Q6H PRN PO PAIN LEVEL 1-3 OR FEVER Last administered on 09/04/17 21:00; Admin Dose 650 MG; Start 08/24/17 at 07:30 Acetaminophen (Tylenol Supp) 650 mg Q4H PRN [place] PAIN LEVEL 1-3 OR TEMP > 37C Last administered on 09/03/17 20:00; Admin Dose 650 MG; Start 08/24/17 at 07: 30 Morphine Sulfate 2 mg 2 mg Q4H PRN [place] PAIN LEVEL 7-10 Last administered on 22:18; Admin Dose 2 MG; Start 08/24/17 at 07:30 Norepinephrine/ Dextrose (Levophed/D5W) 500 ml @ 1.87 mls/hr TITRATE IV Last administered on 08/26/17 14:32; Admin Dose 22.5 MLS/HR; Start 08/26/17 at 13:30 Diphenhydramine/ Zinc Oxide (Benadryl 1% Cr) 1 applic Q6 TOP Last administered on 09/11/17 06:00; Admin Dose 1 APPLIC; Start 09/08/17 at 18:00 Diphenhydramine HCl 25 mg 25 mg Q6H PRN IV ALLERGIC REACTION Last administered on 09/11/17 06:00; Admin Dose 25 MG; Start 09/08/17 at 13:30 Midazolam HCl 50 ml @ 1 mls/hr TITRATE IV ; Start 09/10/17 at 19:30 Valproate Sodium 500 mg/Sodium Chloride 55 ml @ 55 mls/hr Q6 IVPB Last administered on 09/11/17 06:03; Admin Dose 55 MLS/HR; Start 09/11/17 at 06:00 Levetiracetam (Keppra 1,500mg/ 100ml (Pmx)) 100 ml @ 400 mls/hr Q12 IVPB ; Start 09/11/17 at 21:00 QUANG GUTIERREZ Sep 11, 2017 12:43
--- NOTE | 2017-09-11 16:16 | PN ---
Date/Time of Note Date/Time of Note DATE: 09/11/17 TIME: 16:10 Assessment/Plan VTE Prophylaxis VTE Prophylaxis Intervention: other VTE Contraindication Reason: bleeding Lines/Catheters IV Catheter Type (from Nrsg): PICC Line Central line still needed: Yes Urinary Cath still in place: Yes Reason Cath still needed: urinary retention Assessment/Plan Chief Complaint/Hosp Course 37 y/o with 1 s/p cardiac arrest with borderline elevated trop, and CT angio negative 2. Sepsis with Gram + bacteremia , better 3. Morbid obesity 4. Hypertension, cintrolled 5. history of flu like sickness before admission 6. Anemia 7. Seizure Disorder 8. anoxic brain injury, evident on EEG. 7. Underlying diabetes mellitus. 8. Respirtory failure on 70% fi02 9. Both shoulder and chest rash, better Recs - Family to decide today - Pending EEG results - c/w Depakote and versed - GI and dvt prophylaxsis Problems: Subjective 24 Hr Interval Summary Free Text/Dictation EEG today On fio2 70 Family will decide about terminal extubation Exam/Review of Systems Vital Signs Vitals Vital Signs Date Time Temp Pulse Resp B/P Pulse Ox O2 Delivery O2 Flow Rate FiO2 09/11/17 14:00 94 26 142/89 97 Mechanical Ventilator 09/11/17 12:00 99.0 09/11/17 11:10 70 Intake and Output 09/10/17 09/10/17 09/11/17 15:00 23:00 07:00 Intake Total 532.5 ml 505 ml 445 ml Output Total 445 ml 280 ml 270 ml Balance 87.5 ml 225 ml 175 ml Exam Exam Constitutional: non-verbal Head: normocephalic ENMT: other (subconjuctival bleeding) Respiratory: diminished breath sounds Cardiovascular: regular rate and rhythm Gastrointestinal: soft Genitourinary - Male: other (wilcox) Results Result Diagram: 09/07/17 0425 09/10/17 0530 Results 24 hrs Laboratory Tests Test 09/10/17 20:40 09/11/17 07:04 Valproic Acid (Depakene) Level 121 H Carbamazepine (Tegretol) Level < 3.0 L Medications Medications Current Medications Acetaminophen (Tylenol Liquid) 650 mg Q6H PRN PO PAIN LEVEL 1-3 OR FEVER Last administered on 09/06/17t 00:25; Admin Dose 650 MG; Start 08/24/17 at 07:30 Acetaminophen (Tylenol Tab) 650 mg Q6H PRN PO PAIN LEVEL 1-3 OR FEVER Last administered on 09/04/17 21:00; Admin Dose 650 MG; Start 08/24/17 at 07:30 Acetaminophen (Tylenol Supp) 650 mg Q4H PRN [place] PAIN LEVEL 1-3 OR TEMP > 37C Last administered on 09/03/17 20:00; Admin Dose 650 MG; Start 08/24/17 at 07: 30 Morphine Sulfate 2 mg 2 mg Q4H PRN IV PAIN LEVEL 7-10 Last administered on 22:18; Admin Dose 2 MG; Start 08/24/17 at 07:30 Norepinephrine/ Dextrose (Levophed/D5W) 500 ml @ 1.87 mls/hr TITRATE IV Last administered on 08/26/17 14:32; Admin Dose 22.5 MLS/HR; Start 08/26/17 at 13:30 Diphenhydramine/ Zinc Oxide (Benadryl 1% Cr) 1 applic Q6 TOP Last administered on 09/11/17 12:36; Admin Dose 1 APPLIC; Start 09/08/17 at 18:00 Diphenhydramine HCl 25 mg 25 mg Q6H PRN IV ALLERGIC REACTION Last administered on 09/11/17 06:00; Admin Dose 25 MG; Start 09/08/17 at 13:30 Midazolam HCl 50 ml @ 1 mls/hr TITRATE IV Last administered on 09/11/17 15:46 ; Admin Dose 2 MLS/HR; Start 09/10/17 at 19:30 Valproate Sodium 500 mg/Sodium Chloride 55 ml @ 55 mls/hr Q6 IVPB Last administered on 09/11/17 12:36; Admin Dose 55 MLS/HR; Start 09/11/17 at 06:00 Levetiracetam (Keppra 1,500mg/ 100ml (Pmx)) 100 ml @ 400 mls/hr Q12 IVPB ; Start 09/11/17 at 21:00 ELMER RAE MD Sep 11, 2017 16:16
[2017-09-11] MEDS ORDERED: SOD CHLORIDE 0.9% IV ONE (20:00)
[2017-09-11] MEDS ORDERED: PHENYTOIN IV ONE (20:00)
[2017-09-11] MEDS: LEVETIRACETAM 1500 MG (PMX) 100 ML IVPB SCH (21:13)
[2017-09-12] VITALS (30 sets, daily range): BP systolic 102–146; BP diastolic 48–108; PULSE 83–147; RESP 26–31
[2017-09-12] MEDS: DIPHENHYDRAMINE 1%/ZINC 28.3 GM CR TOP SCH ×5 (01:10→23:32)
[2017-09-12] MEDS: VALPROATE INJ 500 MG in SOD CHLORIDE 0.9% 50 ML IVPB SCH ×3 (01:11→13:26)
--- NOTE | 2017-09-12 06:52 | PN ---
DATE: 09/11/2017 HISTORY OF PRESENT ILLNESS: The patient is a 37 years old male with underlying acute encephalopathy , decreased mini mental status, seizure disorder, in which the patient had an EEG which showed an ab normality, and we have started the patient on multiple medications in the form of Depakote 500 mg 4 times a day, Keppra 750 mg twice a day, Versed 2 mg IV drip, intubation ventilation. PHYSICAL EXAMINATION GENERAL: Today, the patient is sleepy, does not follow verbal command. Accompanied by his fiancee and her aunt. HEART: Regular rate and rhythm. LUNGS: Equal breath sounds. ABDOMEN: Soft. EXTREMITIES: Legs: Nondistended. No tenderness. NEUROLOGIC: Cranial nerve II: Pupils equal on both sides, reactive to light. III, IV and : Ext raocular muscles intact for doll's maneuver. V and VII: Intact cornea reflex. VIII through XII: Could not assess. MOTOR: Slight movement for painful stimulus. Sensation, coordination, and gait could not assess. ASSESSMENT AND PLAN: 1. The patient is 37 years old with underlying acute encephalopathy. 2. The patient with seizure activity. Maximize his medication. Patient on Versed drip IV, intubati on, Depakote 500 mg 4 times a day, Keppra 1500 mg twice a day. I will add for him Dilantin 20 mg pe r kg x1 followed by 300 mg once a day and followup the patient's electroencephalogram for more evalu ation and treatment. Dictated By: JULY KOLB/YESI Conf#: [id number] DID#: [id number]
[2017-09-12] MEDS: LEVETIRACETAM 1500 MG (PMX) 100 ML IVPB SCH (09:05)
--- NOTE | 2017-09-12 09:49 | CONS ---
Date/Time of Note Date/Time of Note DATE: 09/12/17 TIME: 09:47 Consult Date/Type/Reason Admit Date/Time Aug 24, 2017 at 07:05 Initial Consult Date 08/27/17 Type of Consultation: Pulmonary/critical care Ordering Provider: MIKE LUONG MD Subjective Patient intubated on mechanical ventilation. Low-dose Versed. No overt seizure activity. Objective Vital Signs Date Time Temp Pulse Resp B/P Pulse Ox O2 Delivery O2 Flow Rate FiO2 09/12/17 09:05 89 26 98 70 09/12/17 06:00 133/72 Mechanical Ventilator 09/12/17 04:00 97.5 Intake and Output 09/11/17 09/11/17 09/12/17 15:00 23:00 07:00 Intake Total 296 ml 501 ml 389 ml Output Total 290 ml 195 ml 325 ml Balance 6 ml 306 ml 64 ml Exam GENERAL:chronically ill-appearing gentleman on mechanical ventilation. VITAL SIGNS: per chart NECK: Supple. No JVD or lymphadenopathy. CARDIAC EXAM: S1, S2. No added sounds or murmurs. CHEST: clear bilaterally, No added sounds, rales or wheezes ABDOMEN: Soft, nontender. No guarding or rebound. EXTREMITIES: No cyanosis, clubbing edema +1 NEUROLOGIC: Unable to assess. Results/Medications Result Diagram: 09/10/17 0530 Medications Current Medications Acetaminophen (Tylenol Liquid) 650 mg Q6H PRN PO PAIN LEVEL 1-3 OR FEVER Last administered on 09/06/17 00:25; Admin Dose 650 MG; Start 08/24/17 at 07:30 Acetaminophen (Tylenol Tab) 650 mg Q6H PRN PO PAIN LEVEL 1-3 OR FEVER Last administered on 09/04/17 21:00; Admin Dose 650 MG; Start 08/24/17 at 07:30 Acetaminophen (Tylenol Supp) 650 mg Q4H PRN [place] PAIN LEVEL 1-3 OR TEMP > 37C Last administered on 09/03/17 20:00; Admin Dose 650 MG; Start 08/24/17 at 07: 30 Morphine Sulfate 2 mg 2 mg Q4H PRN IV PAIN LEVEL 7-10 Last administered on 22:18; Admin Dose 2 MG; Start 08/24/17 at 07:30 Norepinephrine/ Dextrose (Levophed/D5W) 500 ml @ 1.87 mls/hr TITRATE IV Last administered on 08/26/17 14:32; Admin Dose 22.5 MLS/HR; Start 08/26/17 at 13:30 Diphenhydramine/ Zinc Oxide (Benadryl 1% Cr) 1 applic Q6 TOP Last administered on 09/12/17 05:53; Admin Dose 1 APPLIC; Start 09/08/17 at 18:00 Diphenhydramine HCl 25 mg 25 mg Q6H PRN IV ALLERGIC REACTION Last administered on 09/11/17 06:00; Admin Dose 25 MG; Start 09/08/17 at 13:30 Midazolam HCl 50 ml @ 1 mls/hr TITRATE IV Last administered on 09/11/17 15:46 ; Admin Dose 2 MLS/HR; Start 09/10/17 at 19:30 Valproate Sodium 500 mg/Sodium Chloride 55 ml @ 55 mls/hr Q6 IVPB Last administered on 09/12/17 05:55; Admin Dose 55 MLS/HR; Start 09/11/17 at 06:00 Levetiracetam (Keppra 1,500mg/ 100ml (Pmx)) 100 ml @ 400 mls/hr Q12 IVPB Last administered on 09/11/17 21:13; Admin Dose 400 MLS/HR; Start 09/11/17 at 21: 00 Phenytoin (Dilantin) 300 mg HS PO ; Start 09/12/17 at 21:00 Assessment/Plan Chief Complaint/Hosp Course IMP: 1. s/p Cardiopulmonary arrest--likely due to aspiration and central airway obstruction 2. Seizure Disorder, now likely persistent vegetative state. 3. Gram + bacteremia--likely contaminant 4. Likely severe anoxic brain injury. EEG per neurology concerning for possible subclinical seizure activity. 5. Hypoxemic respiratory failure. 6. Morbid obesity 7. DM RECS: 1. Continue mechanical ventilation. 2. Anti-epileptic Rx neuro recommendations repeat EEG results pending. 3. Trial of nasogastric tube feeding 4. Abx 5. F/U Cx's 6. DVT and GI prophylaxis Overall prognosis extremely poor. Even if seizures are completely controlled his neurological prognosis is extremely poor. Current quality of life is not consistent with patient's wishes. Problems: JULIANA WASHINGTON MD, [facility] Sep 12, 2017 09:49
--- NOTE | 2017-09-12 11:58 | CONS ---
Date/Time of Note Date/Time of Note DATE: 09/12/17 TIME: 11:56 Assessment/Plan Assessment/Plan Chief Complaint/Hosp Course IMPRESSION: 1. Pulseless electrical activity cardiac arrest. EF 50% by echo this admit- no recurrent arrythmia. Likley initial respiratory driven 2. Abnormal electrocardiogram with diffuse ST depressions but in the setting of cardiac arrest. 3. Hypotension-Now HTN 4. Tachycardia consistent with sinus tachycardia. 5. Encephalopathy. 6. History of flu-like illness. 7. Hypothyroidism. 8. Hematuria. 9. Seizure-recurrent per report when sedation lightened 10. Lactic acidosis. 11. Leukocytosis. 12. Positive troponin-minimal in setting of cardiac arrest and now trended negative 14. bacteremia 15. Fevers 16. Hypernatremia-improved Recc: -ICU monitoring -continue abx's and f/u cx data -Follow MS closely -Continue keppra -EEG repeat today -ongoing neuro eval and family discussion Problems: Consultation Date/Type/Reason Admit Date/Time Aug 24, 2017 at 07:05 Initial Consult Date 08/27/17 Type of Consultation: cardiology Reason for Consultation cardiac arrest Referring Provider: MIKE LUONG MD Exam/Review of Systems Vital Signs Vitals Vital Signs Date Time Temp Pulse Resp B/P Pulse Ox O2 Delivery O2 Flow Rate FiO2 09/12/17 11:07 83 26 96 60 09/12/17 06:00 133/72 Mechanical Ventilator 09/12/17 04:00 97.5 Intake and Output 09/11/17 09/11/17 09/12/17 15:00 23:00 07:00 Intake Total 296 ml 501 ml 389 ml Output Total 290 ml 195 ml 325 ml Balance 6 ml 306 ml 64 ml Exam Review of Systems: CONSTITUTIONAL: No fevers, chills. PULMONARY: intubated CARDIOVASCULAR: No chest pain/palpitations GASTROINTESTINAL: No nausea/vomiting. GENITOURINARY: No hematuria/dysuria. MUSCULOSKELETAL: No myagias/arthalgias. PSYCHIATRIC: The patient denies depression. NEUROLOGIC: encephlopathic Constitutional: other (encephlopathic) Psych: no complaints Head: normocephalic ENMT: mucosa pink and moist Neck: jvd (9 cm water), supple Respiratory: other (upper airway rhoncherous sounds) Cardiovascular: regular rate and rhythm Gastrointestinal: non-tender, soft Musculoskeletal: muscle tone (normal) Extremities: edema (trace) Neurological: unresponsive Results Result Diagram: 09/10/17 0530 Medications Medications Current Medications Acetaminophen (Tylenol Liquid) 650 mg Q6H PRN PO PAIN LEVEL 1-3 OR FEVER Last administered on 09/06/17 00:25; Admin Dose 650 MG; Start 08/24/17 at 07:30 Acetaminophen (Tylenol Tab) 650 mg Q6H PRN PO PAIN LEVEL 1-3 OR FEVER Last administered on 09/04/17 21:00; Admin Dose 650 MG; Start 08/24/17 at 07:30 Acetaminophen (Tylenol Supp) 650 mg Q4H PRN [place] PAIN LEVEL 1-3 OR TEMP > 37C Last administered on 09/03/17 20:00; Admin Dose 650 MG; Start 08/24/17 at 07: 30 Morphine Sulfate 2 mg 2 mg Q4H PRN IV PAIN LEVEL 7-10 Last administered on 22:18; Admin Dose 2 MG; Start 08/24/17 at 07:30 Norepinephrine/ Dextrose (Levophed/D5W) 500 ml @ 1.87 mls/hr TITRATE IV Last administered on 08/26/17 14:32; Admin Dose 22.5 MLS/HR; Start 08/26/17 at 13:30 Diphenhydramine/ Zinc Oxide (Benadryl 1% Cr) 1 applic Q6 TOP Last administered on 09/12/17 05:53; Admin Dose 1 APPLIC; Start 09/08/17 at 18:00 Diphenhydramine HCl 25 mg 25 mg Q6H PRN IV ALLERGIC REACTION Last administered on 09/11/17 06:00; Admin Dose 25 MG; Start 09/08/17 at 13:30 Midazolam HCl 50 ml @ 1 mls/hr TITRATE IV Last administered on 09/11/17 15:46 ; Admin Dose 2 MLS/HR; Start 09/10/17 at 19:30 Valproate Sodium 500 mg/Sodium Chloride 55 ml @ 55 mls/hr Q6 IVPB Last administered on 09/12/17 05:55; Admin Dose 55 MLS/HR; Start 09/11/17 at 06:00 Levetiracetam (Keppra 1,500mg/ 100ml (Pmx)) 100 ml @ 400 mls/hr Q12 IVPB Last administered on 09/12/17t 09:05; Admin Dose 400 MLS/HR; Start 09/11/17 at 21: 00 Phenytoin (Dilantin) 300 mg HS PO ; Start 09/12/17 at 21:00 SKYLAR ABDALLA Sep 12, 2017 11:58
--- NOTE | 2017-09-12 13:26 | PN ---
Date/Time of Note Date/Time of Note DATE: 09/12/17 TIME: 13:22 Assessment/Plan VTE Prophylaxis VTE Prophylaxis Intervention: SCD's Lines/Catheters IV Catheter Type (from Nrsg): PICC Line Central line still needed: Yes Urinary Cath still in place: Yes Reason Cath still needed: urinary retention Assessment/Plan Chief Complaint/Hosp Course 1. s/p cardiac arrest 2. Sepsis with Gram + bacteremia , better 3. Morbid obesity 4. Hypertension, cintrolled 5. history of flu like sickness before admission 6. Anemia 7. Seizure Disorder 8. anoxic brain injury, evident on EEG. 7. Underlying diabetes mellitus. 8. Decreased Urinary output 9. Both shoulder and chest rash, better Problems: Assessment/Plan 1. EEG pending 2. Dr Lunsford to help pt to make decision. 3. Increase versed to 4 mg/h to control seizures. 4. Maria Luz spicer wants to extubate him, she desires to have pain medication before the extubation Subjective 24 Hr Interval Summary Subjective hx not possible: pt non-verbal Exam/Review of Systems Vital Signs Vitals Vital Signs Date Time Temp Pulse Resp B/P Pulse Ox O2 Delivery O2 Flow Rate FiO2 09/12/17 12:00 84 09/12/17 11:07 26 96 60 09/12/17 06:00 133/72 Mechanical Ventilator 09/12/17 04:00 97.5 Intake and Output 09/11/17 09/11/17 09/12/17 15:00 23:00 07:00 Intake Total 296 ml 501 ml 389 ml Output Total 290 ml 195 ml 325 ml Balance 6 ml 306 ml 64 ml Exam Constitutional: non-verbal, obese Head: normocephalic Neck: supple Respiratory: diminished breath sounds Cardiovascular: regular rate and rhythm Results Result Diagram: 09/10/17 0530 Medications Medications Current Medications Acetaminophen (Tylenol Liquid) 650 mg Q6H PRN PO PAIN LEVEL 1-3 OR FEVER Last administered on 09/06/17 00:25; Admin Dose 650 MG; Start 08/24/17 at 07:30 Acetaminophen (Tylenol Tab) 650 mg Q6H PRN PO PAIN LEVEL 1-3 OR FEVER Last administered on 09/04/17 21:00; Admin Dose 650 MG; Start 08/24/17 at 07:30 Acetaminophen (Tylenol Supp) 650 mg Q4H PRN [place] PAIN LEVEL 1-3 OR TEMP > 37C Last administered on 09/03/17 20:00; Admin Dose 650 MG; Start 08/24/17 at 07: 30 Morphine Sulfate 2 mg 2 mg Q4H PRN IV PAIN LEVEL 7-10 Last administered on 22:18; Admin Dose 2 MG; Start 08/24/17 at 07:30 Norepinephrine/ Dextrose (Levophed/D5W) 500 ml @ 1.87 mls/hr TITRATE IV Last administered on 08/26/17 14:32; Admin Dose 22.5 MLS/HR; Start 08/26/17 at 13:30 Diphenhydramine/ Zinc Oxide (Benadryl 1% Cr) 1 applic Q6 TOP Last administered on 09/12/17 05:53; Admin Dose 1 APPLIC; Start 09/08/17 at 18:00 Diphenhydramine HCl 25 mg 25 mg Q6H PRN IV ALLERGIC REACTION Last administered on 09/11/17 06:00; Admin Dose 25 MG; Start 09/08/17 at 13:30 Midazolam HCl 50 ml @ 1 mls/hr TITRATE IV Last administered on 09/11/17 15:46 ; Admin Dose 2 MLS/HR; Start 09/10/17 at 19:30 Valproate Sodium 500 mg/Sodium Chloride 55 ml @ 55 mls/hr Q6 IVPB Last administered on 09/12/17 05:55; Admin Dose 55 MLS/HR; Start 09/11/17 at 06:00 Levetiracetam (Keppra 1,500mg/ 100ml (Pmx)) 100 ml @ 400 mls/hr Q12 IVPB Last administered on 09/12/17 09:05; Admin Dose 400 MLS/HR; Start 09/11/17 at 21: 00 Phenytoin (Dilantin) 300 mg HS PO ; Start 09/12/17 at 21:00 AMALIA LUKE Sep 12, 2017 13:26
[2017-09-12] MEDS ORDERED: MIDAZOLAM (DRIP) 50 mg/50 mL 50 ML IV SCH (13:30)
[2017-09-12] MEDS ORDERED: morphine 2 MG INJ IV STA (15:16)
[2017-09-12] MEDS ORDERED: morphine 2 MG INJ IV PRN (15:30)
[2017-09-12] MEDS: morphine 2 MG INJ IV PRN ×2 (15:48→20:20)
--- NOTE | 2017-09-12 16:58 | QN ---
Documentation Comment Pt was seen and examined with BUSINESS INITIATIVES MANAGER Per family wishes, pt was terminally extubated ELMER RAE MD Sep 12, 2017 16:58
[2017-09-12] MEDS ORDERED: morphine (DRIP) 100 MG/100 ML 100 ML IV SCH (19:00)
[2017-09-12] MEDS ORDERED: PHENYTOIN 100 MG CAP PO SCH (21:00)
[2017-09-13] VITALS: BP 110/71; PULSE 138; RESP 27
[2017-09-13 01:00] VITALS: BP 105/62; PULSE 137; RESP 28
[2017-09-13 02:00] VITALS: BP 102/55; PULSE 137; RESP 27
[2017-09-13 03:00] VITALS: BP 99/56; PULSE 145; RESP 23
[2017-09-13 04:00] VITALS: BP 82/49; PULSE 111; RESP 25
--- NOTE | 2017-09-13 11:48 | DES ---
Date/Time of Note Date/Time of Note DATE: 09/13/17 TIME: 11:48 Discharge/ Summary Admission/Discharge Info Admit Date/Time Aug 24, 2017 at 07:05 Discharge Date/Time Sep 13, 2017 at 04:15 Final Diagnosis Respiratory failure and cardiac arrest Preliminary Cause of cardiac arrest Hx of Present Illness Per ER record pt was brougnt by paramedics. According to the girlfriend, he has had a cold for the last 2 days, trouble sleeping for the last couple days. She found him having a seizure on the bed at approximately 3:50 AM. She called 911 at 4 AM. The EMS arrived at the scene at 4:06 AM. He was found to have PEA , intubated with Sb airway, treated with CPR and epinephrine 1 mg IV 3. He had ROSC at 4:20 AM and arrived to the ER at 4:35 AM. 1. Pulseless electrical activity cardiac arrest. EF 50% by echo this admit- no recurrent arrhythmia. 2. Abnormal electrocardiogram with diffuse ST depressions but in the setting of cardiac arrest. 3. Hypotension-Now HTN 4. Tachycardia consistent with sinus tachycardia. 5. Encephalopathy. 6. History of flu-like illness. 7. Hypothyroidism. 8. Hematuria. 9. Seizure-recurrent per report when sedation lightened 10. Lactic acidosis. 11. Leukocytosis. 12. Positive troponin-minimal in setting of cardiac arrest and now trended negative 14. bacteremia 15. Fevers 16. Hypernatremia-improved During hospitalization pt was treated : 1. Continued on mechanical ventilation. 2. Anti-epileptic Rx were given and titrated 3. He had Trial of nasogastric tube feeding 4. Abx were continued 5. Social service support 6. DVT and GI prophylaxis Specialists determined patient overall prognosis extremely poor. His seizures are completely controlled his neurological prognosis is extremely poor. Current quality of life is not consistent with patient's wishes. Girlfriend along with God mother decided to terminally extubate the patient. During hospitalization the date of terminal extubation was posponed 4 times due to many reason from Maria Luz, pt girlfriend. Eventually, on 09/12/2017 he was extunbated and placed on morphine drip. Pecefully around 4 am. he was pronounced in unit per protocol. Hospital Course IMPRESSION: 1. Pulseless electrical activity cardiac arrest. EF 50% by echo this admit- no recurrent arrythmia. [place] initial respiratory driven 2. Abnormal electrocardiogram with diffuse ST depressions but in the setting of cardiac arrest. 3. Hypotension-Now HTN 4. Tachycardia consistent with sinus tachycardia. 5. Encephalopathy. 6. History of flu-like illness. 7. Hypothyroidism. 8. Hematuria. 9. Seizure-recurrent per report when sedation lightened 10. Lactic acidosis. 11. Leukocytosis. 12. Positive troponin-minimal in setting of cardiac arrest and now trended negative 14. bacteremia 15. Fevers 16. Hypernatremia-improved Recc: -ICU monitoring -continue abx's and f/u cx data -Follow MS closely -Continue mac -EEG repeat today -ongoing neuro eval and family discussion AMALIA LUKE Sep 13, 2017 11:48
--- NOTE | 2017-09-14 08:16 | PN ---
DATE: 09/12/2017 HISTORY OF PRESENT ILLNESS: The patient is 36 years old with history of unresponsive, decreased men libby status, encephalopathy, seizure disorder, respiratory failure, intubation. With his fiancee was mentioned to the hospital that patient would not have life support machine and they wanted to make him DNR as well as extubate him and the patient's family is agreed about that. PHYSICAL EXAMINATION: GENERAL: The patient is unresponsive, does not follow any verbal commands. CRANIAL NERVES: Comatose. Pupils equal on both sides. III, IV and : Slight movement for maneuver. V and VII intact corneal reflex. XIII-XII, could not assess. MOTOR: Slight movement for painful stimuli. Since he is comatose, could not assess. HEART: Regular rate and rhythm. LUNGS: Equal breath sounds observed. ABDOMEN: Soft, relaxed, no tenderness. ASSESSMENT AND PLAN: The patient is a 36-year-old, severe acute encephalopathy. The patient is unr esponsive. The fiancee expressed that they want him on DNR status and extubate him according to his wishes and the previous directions from the patient that he does not want to be on life support mac ileana. The patient extubated and will keep him on comfort measures. Dictated By: JULY KOLB/YESI Conf#: [id number] DID#: [id number]
== END 2017-09-13 04:15 | disposition expired | DRG 870 ==
LOC: E/R 04:37 → ICU 07:05
PROVIDERS: ADMIT Internal Medicine Nephrology; ATTEND Internal Medicine Nephrology
PROC: 5A1955Z Respiratory Ventilation, Greater than 96 Consecutive Hours (ICD-10-PCS; principal; 2017-08-24)
PROC: 0BH17EZ Insertion of Endotracheal Airway into Trachea, Via Natural or Artificial Opening (ICD-10-PCS; 2017-08-24)
PROC: 02H633Z Insertion of Infusion Device into Right Atrium, Percutaneous Approach (ICD-10-PCS; 2017-08-28)
DX: A41.2 Sepsis due to unspecified staphylococcus (principal); I46.8 Cardiac arrest due to other underlying condition; J96.01 Acute respiratory failure with hypoxia; R57.8 Other shock; J69.0 Pneumonitis due to inhalation of food and vomit; G93.1 Anoxic brain damage, not elsewhere classified; E87.2 Acidosis; I95.9 Hypotension, unspecified; J81.1 Chronic pulmonary edema; E87.0 Hyperosmolality and hypernatremia; R65.21 Severe sepsis with septic shock; N17.9 Acute kidney failure, unspecified; E66.2 Morbid (severe) obesity with alveolar hypoventilation; J98.11 Atelectasis; I16.9 Hypertensive crisis, unspecified; I10 Essential (primary) hypertension; I51.7 Cardiomegaly; D64.9 Anemia, unspecified; G40.909 Epilepsy, unspecified, not intractable, without status epilepticus; E87.6 Hypokalemia; E16.2 Hypoglycemia, unspecified; E03.9 Hypothyroidism, unspecified; E11.65 Type 2 diabetes mellitus with hyperglycemia; R31.9 Hematuria, unspecified; J44.9 Chronic obstructive pulmonary disease, unspecified; D75.1 Secondary polycythemia; R39.12 Poor urinary stream; R21 Rash and other nonspecific skin eruption; G47.33 Obstructive sleep apnea (adult) (pediatric); Z51.5 Encounter for palliative care; Z68.37 Body mass index [BMI] 37.0-37.9, adult
CPT/HCPCS: 31500; 36415; 36569; 36600; 70450; 71010; 71275; 72125; 74000; 76700; 76937; 80048; 80053; 80061; 80156; 80164; 80202; 80306; 80307; 81001; 81270; 82150; 82668; 82803; 82962; 83036; 83605; 83690; 83735; 84100; 84134; 84443; 84478; 84484; 85025; 85384; 85610; 85730; 86703; 87040; 87070; 87081; 87086; 88104; 88305; 88313; 89220; 93005; 93306; 94002; 94003; 94640; 94664; 94770; 95819; 96372; 96374; 96375; 96376; C1769; C9113; J0360; J1165; J1200; J1650; J1815; J1940; J1953; J1956; J2060; J2175; J2185; J2250; J2270; J2543; J2920; J2930; J2997; J3010; J3370; J3475; J3480; J7030; J7040; J7042; J7050; J7060; J7070; Q9967